=== PATIENT | female | born 1990 | race Caucasian/White ===

== ENCOUNTER 2018-01-21 17:41 | Emergency (ER) | payer OTHER, SELFPAY ==
[2018-01-21 17:43] VITALS: BP 135/94; PULSE 110; RESP 16; TEMP 37; O2SAT 97; BMI 42.3
--- NOTE | 2018-01-21 17:58 | EKG12_ITS ---
Test Reason : CP Blood Pressure : / mmHG Vent. Rate : 095 BPM Atrial Rate : 095 BPM P-R Int : 124 ms QRS Dur : 078 ms QT Int : 350 ms P-R-T Axes : 005 046 027 degrees QTc Int : 439 ms Normal sinus rhythm Low voltage QRS Borderline ECG Confirmed by CATALINO CASILLAS, GIANNI ([id number]), editorial project manager JANIE PURCELL ([id number]) on 01/25/2018 3:18:09 PM Referred By: Confirmed By:GIANNI BAE MD
[2018-01-21 18:21] LABS: Absolute Lymphocyte Count 2.63 X10^3/ul (0.83-4.51); Absolute Neutrophil Count 5.5 X10^3/uL (2.0-7.7); Basophil# 0.02 X10^3/uL; Basophil% 0.2 % (0-1); Eosinophils% 1.2 % (0-5); Hematocrit 39.3 % (37-47); Hemoglobin 13.1 g/dl (12.0-15.0); Lymphocyte # 2.63 X10^3/ul (4.0); Lymphocyte % 30.3 % (19-41); Mean Corp Hgb Conc 33.3 g/gl (32-36); Mean Corpuscular Hgb 30.6 pg (27.0-32.0); Mean Corpuscular Volume 91.8 fL (81-99); Mean Platelet Vol. 8.3 fl (6.2-12.0); Monocyte# 0.43 X10^3/uL; Neutrophil # 5.47 X10^3/uL (2.7-7.7); Neutrophil % 63.1 % (47-70); Platelet Count 294 K/mm3 (150-450); RBC Distribution Width CV 12.6 % (11.6-14.6); RBC Distribution Width SD 41.9 fl (35.1-43.9); Red Blood Count 4.28 M/mm3 (4.2-5.4); White Blood Count 8.7 K/mm3 (4.4-11.0)
[2018-01-21 18:22] LABS: POSITIVE COUNT NO; POSITIVE DIFFERENTIAL NO; POSITIVE MORPHOLOGY NO
--- NOTE | 2018-01-21 18:30 | RAD_ITS ---
STUDY: X-RAY CHEST REASON FOR EXAM: Female, 27 years old. Chest pain TECHNIQUE: Frontal view of the chest COMPARISON: None. FINDINGS: The lungs are clear. There are no pleural effusions. There is no pneumothorax. The heart is normal in size. The visualized osseous structures are within normal limits. RAD/Chest 1 View (Portable) IMPRESSION: No acute thoracic pathology. Electronically Signed: Bean Wang, at 19:04 EDT Tel , Service support ,
[2018-01-21 18:44] LABS: Anion Gap 5 (5-15); BUN 16 mg/dL (7-18); BUN/Creat Ratio 19.1 RATIO (10-20); Calcium,Total 8.8 mg/dL (8.5-10.1); Chloride 104 mmol/L (98-107); Creatinine, Serum 0.84 mg/dL (0.55-1.02); EST Glomerular Filtration Rate 85 mL/min (>60); Est Glom Filt Rate - Afr Amer 103 mL/min (>60); Estimated Creatinine Clearance 81.75 ml/min; Glucose 98 mg/dL (74-106); Potassium 3.7 mmol/L (3.5-5.1); Sodium Level 136 mmol/L (136-145)
[2018-01-21 18:47] VITALS: BP 115/80; PULSE 94; RESP 24; O2SAT 97
--- NOTE | 2018-01-21 19:41 | ED.VISSUMM ---
- ER Visit Summary Date of Service: 01/21/18 Chief Complaint: [] Reflux type symptoms since yesterday History of Present Illness: The patient is a 27 F [] has history of fibromyalgia, she reports yesterday she can having a burning acid leak type sensation to her throat persisted into the day and she came in for evaluation she also reports she has itchy bumps over her's hands and feet, she has no history of [place] PE DVT, she is able to eat and drink review of systems otherwise negative no fever no cough she has no history of angina or heart disease of any kind or COPD her fibromyalgia is well controlled with her medications and she is on no new medicines and had no exposures that the symptoms are not exertional in nature she is able to eat and again her review of systems otherwise negative Physical Examination: [] Resting comforting the bed she is in no distress her vital signs are within normal range HEENT exam unremarkable neck is supple lungs are clear heart tones are normal the abdomen soft nontender obese she is moving all 4 extremities she points to what she describes as small red bumps to her hands and her feet there is no blistering petechia or purpura I really do not appreciate these bumps when she points to them her skin exam is unremarkable her back is unremarkable the rest of her exam is entirely unremarkable Test Results: [] Emergency Department Course and Treatment: [] Patient's labs troponin EKG chest x-ray are unremarkable, I have explained the test results to her of explained exact etiology of her reflux type symptoms or chest pain symptoms are unclear we did discuss the concept of occult cardiac condition I offered to admit her for further management observation but she declined that she wanted to go home she understood the need for close outpatient follow-up in the concept of occult cardiac conditions that could be lethal, her mother and children were in the room with her, she has no history or risk of DVT or PE Regards to small red bumps that are itching I explained to her that there is no clear allergy for the disease could be related to something she came in contact with, again she is comfortable with discharge home follow-up her physicians bland diet return for change in symptoms Treatment Plan: [] Disposition: [] Home stable declined admission Impression: [] Nonspecific chest pain, nonspecific pruritic lesions to extremities etiology unclear This note was generated with [employer] software. It may contain incorrect words, spelling, and punctuation that were not noted in review of the chart prior to signing ED Disposition - Plan for ED Patient: Chief Complaint: Chest Pain Referrals: Caleb Justin MD [Primary Care Provider] -
--- NOTE | 2018-01-21 19:44 | ED.DCSUM_ITS ---
- ER Visit Summary Date of Service: 01/21/18 Chief Complaint: [] Reflux type symptoms since yesterday History of Present Illness: The patient is a 27 F [] has history of fibromyalgia , she reports yesterday she can having a burning acid leak type sensation to her throat persisted into the day and she came in for evaluation she also reports she has itchy bumps over her's hands and feet, she has no history of [place] PE DVT, she is able to eat and drink review of systems otherwise negative no fever no cough she has no history of angina or heart disease of any kind or COPD her fibromyalgia is well controlled with her medications and she is on no new medicines and had no exposures that the symptoms are not exertional in nature she is able to eat and again her review of systems otherwise negative Physical Examination: [] Resting comforting the bed she is in no distress her vital signs are within normal range HEENT exam unremarkable neck is supple lungs are clear heart tones are normal the abdomen soft nontender obese she is moving all 4 extremities she points to what she describes as small red bumps to her hands and her feet there is no blistering petechia or purpura I really do not appreciate these bumps when she points to them her skin exam is unremarkable her back is unremarkable the rest of her exam is entirely unremarkable Test Results: [] Emergency Department Course and Treatment: [] Patient's labs troponin EKG chest x-ray are unremarkable, I have explained the test results to her of explained exact etiology of her reflux type symptoms or chest pain symptoms are unclear we did discuss the concept of occult cardiac condition I offered to admit her for further management observation but she declined that she wanted to go home she understood the need for close outpatient follow-up in the concept of occult cardiac conditions that could be lethal, her mother and children were in the room with her, she has no history or risk of DVT or PE Regards to small red bumps that are itching I explained to her that there is no clear allergy for the disease could be related to something she came in contact with, again she is comfortable with discharge home follow-up her physicians bland diet return for change in symptoms Treatment Plan: [] Disposition: [] Home stable declined admission Impression: [] Nonspecific chest pain, nonspecific pruritic lesions to extremities etiology unclear This note was generated with [employer] software. It may contain incorrect words, spelling, and punctuation that were not noted in review of the chart prior to signing ED Disposition - Plan for ED Patient: Chief Complaint: Chest Pain Referrals: Caleb Justin MD [Primary Care Provider] -
--- NOTE | 2018-01-21 19:44 | ED.DEP ---
ED Disposition - Plan for ED Patient: Chief Complaint: Chest Pain Instructions: ED Chest Pain Atypical Unkn Cause Referrals: Caleb Justin MD [Primary Care Provider] -
[2018-01-21 20:00] VITALS: BP 102/69; PULSE 81; RESP 21; O2SAT 98
== END 2018-01-21 20:01 | disposition home or self-care (01) ==
PROVIDERS: Emergency Provider Emergency Medicine; Family Provider Family Medicine; PCP Family Medicine
DX: R07.9 Chest pain, unspecified (principal); L29.9 Pruritus, unspecified; M79.7 Fibromyalgia; Z79.899 Other long term (current) drug therapy
CPT/HCPCS: 71045; 80048; 84484; 85025; 93005; 99284; A4216

== ENCOUNTER 2018-01-23 09:07 | Emergency (ER) | payer OTHER, SELFPAY ==
[2018-01-23 09:08] VITALS: BP 135/79; PULSE 111; RESP 17; TEMP 36.6; O2SAT 94; BMI 42.1
[2018-01-23] MEDS: Famotidine 20 MG Tablet 40 MG PO (09:40)
[2018-01-23] MEDS: predniSONE 20 MG Tablet 60 MG PO (09:40)
[2018-01-23] MEDS: Loratadine 10 MG Tablet PO (09:40)
--- NOTE | 2018-01-23 10:13 | ED.VISSUMM ---
- ER Visit Summary Date of Service: 01/23/18 Chief Complaint: Rash History of Present Illness: The patient is a [address] Justin. She reports that she has a rash that began 2 days ago on the anterior surface of her right wrist. States that yesterday her lips and tongue began swelling. She has been taking 50-75 mg of Benadryl every 3 hours. Her last dose was approximately an hour and a half ago. States this relieved the tongue swelling in her lips are improved, but lips are still swollen. She reports that this morning the rash spread to her trunk. Patient denies any change in soap, shampoo, laundry detergent, or fabric softener. No new clothing, bedding, carpeting, or pets. No new medications in the past month. Patient reports that she is in the emergency department 3 days ago for chest pain. She reports that it is a constant pain since that time and she does have mild shortness of breath. Physical Examination: Vitals: Stable. Afebrile. General: Well-nourished and well-developed. Head: Normocephalic atraumatic. Neck: Supple, no lymphadenopathy. No JVD. Nontender. Cardiovascular: Regular rate and rhythm. No murmurs. Respiratory: No respiratory distress. Clear to auscultation bilaterally. Abdominal: Soft, nontender, nondistended, normal bowel sounds. No guarding, rebound, or peritoneal signs. Back: Nontender. Extremities: Nontender, no edema. Skin: Urticarial lesions scattered over her distal forearms bilaterally, below her breasts, and over the mid back. Neurologic: Alert and oriented ?3. Cranial nerves II through XII are intact. Normal strength and sensation. Psych: Normal affect. Test Results: EKG is sinus at 99 with no acute changes. Troponin is negative. Chem-7 is normal. CBC from 3 days ago was normal. This was not repeated. D-dimer is 4.54. test is negative. CTA chest shows no dissection or PE. Question small hiatal hernia. Emergency Department Course and Treatment: Patient was treated Pepcid, Claritin, and prednisone p.o. She reports that her lip swelling has improved. Her tongue is still not swollen. Her rash is improved. Treatment Plan: Patient will be discharged on Zyrtec, Pepcid, and a 5 day burst of prednisone. Instructed to follow-up her primary care physician 1-2 days if not improving. Return to the emergency department for any worsening symptoms. Disposition: To home in improved and stable condition. Impression: 1. Allergic reaction, uncertain cause. 2. Atypical chest pain. This note was generated with [employer] dictation software. It may contain incorrect words, spelling, and punctuation that were not noted in review of the chart prior to signing ED Disposition - Plan for ED Patient: Chief Complaint: Allergic Reaction Instructions: ED Allergic Reaction General Other Prescriptions: Cetirizine HCl [Zyrtec] 10 mg PO DAILY #14 tablet Prednisone [Deltasone] 60 mg PO DAILY #15 tablet Famotidine [Pepcid] 20 mg PO BID #28 tablet Referrals: Caleb Justin MD [Primary Care Provider] - 1-2 Days if not improving
--- NOTE | 2018-01-23 10:16 | ED.DCSUM_ITS ---
- ER Visit Summary Date of Service: 01/23/18 Chief Complaint: Rash History of Present Illness: The patient is a [address] Justin. She reports that she has a rash that began 2 days ago on the anterior surface of her right wrist. States that yesterday her lips and tongue began swelling. She has been taking 50-75 mg of Benadryl every 3 hours. Her last dose was approximately an hour and a half ago. States this relieved the tongue swelling in her lips are improved, but lips are still swollen. She reports that this morning the rash spread to her trunk. Patient denies any change in soap, shampoo, laundry detergent, or fabric softener. No new clothing, bedding, carpeting, or pets. No new medications in the past month. Patient reports that she is in the emergency department 3 days ago for chest pain. She reports that it is a constant pain since that time and she does have mild shortness of breath. Physical Examination: Vitals: Stable. Afebrile. General: Well-nourished and well-developed. Head: Normocephalic atraumatic. Neck: Supple, no lymphadenopathy. No JVD. Nontender. Cardiovascular: Regular rate and rhythm. No murmurs. Respiratory: No respiratory distress. Clear to auscultation bilaterally. Abdominal: Soft, nontender, nondistended, normal bowel sounds. No guarding, rebound, or peritoneal signs. Back: Nontender. Extremities: Nontender, no edema. Skin: Urticarial lesions scattered over her distal forearms bilaterally, below her breasts, and over the mid back. Neurologic: Alert and oriented ?3. Cranial nerves II through XII are intact. Normal strength and sensation. Psych: Normal affect. Test Results: EKG is sinus at 99 with no acute changes. Troponin is negative. Chem-7 is normal. CBC from 3 days ago was normal. This was not repeated. D- dimer is 4.54. test is negative. CTA chest shows no dissection or PE. Question small hiatal hernia. Emergency Department Course and Treatment: Patient was treated Pepcid, Claritin , and prednisone p.o. She reports that her lip swelling has improved. Her tongue is still not swollen. Her rash is improved. Treatment Plan: Patient will be discharged on Zyrtec, Pepcid, and a 5 day burst of prednisone. Instructed to follow-up her primary care physician 1-2 days if not improving. Return to the emergency department for any worsening symptoms. Disposition: To home in improved and stable condition. Impression: 1. Allergic reaction, uncertain cause. 2. Atypical chest pain. This note was generated with [employer] dictation software. It may contain incorrect words, spelling, and punctuation that were not noted in review of the chart prior to signing ED Disposition - Plan for ED Patient: Chief Complaint: Allergic Reaction Instructions: ED Allergic Reaction General Other Prescriptions: Cetirizine HCl [Zyrtec] 10 mg PO DAILY #14 tablet Prednisone [Deltasone] 60 mg PO DAILY #15 tablet Famotidine [Pepcid] 20 mg PO BID #28 tablet Referrals: Caleb Justin MD [Primary Care Provider] - 1-2 Days if not improving
[2018-01-23 10:17] LABS: D-Dimer Quantitative (DVT/PE) 4.54 FEU/ug/m (0.27-0.49)
--- NOTE | 2018-01-23 10:18 | NURSING ---
Lab called with critical result: d-dimer: 4.54, results given to Dr. Olmos
--- NOTE | 2018-01-23 10:19 | EKG12_ITS ---
Test Reason : ALLERGOC REACTION Blood Pressure : / mmHG Vent. Rate : 099 BPM Atrial Rate : 099 BPM P-R Int : 134 ms QRS Dur : 078 ms QT Int : 346 ms P-R-T Axes : 001 049 020 degrees QTc Int : 444 ms Normal sinus rhythm Normal ECG Confirmed by CATALINO CASILLAS, GIANNI ([id number]), assistant film editor JANIE PURCELL ([id number]) on 01/25/2018 1:57:40 PM Referred By: ZULEYMA Confirmed By:GIANNI BAE MD
--- NOTE | 2018-01-23 10:19 | CT_ITS ---
STUDY: CTA CHEST REASON FOR EXAM: Female, 27 years old. Elevated d-dimer. Allergic reaction beginning yesterday with rash and swelling of the lips. RADIATION DOSAGE (If Supplied By Facility): CTDIvol = ( 15.21 ) mGy, DLP = ( 646.01 ) mGycm TECHNIQUE: The examination was performed with the intravenous administration of 100 ml of Isovue 370 contrast material. Post-processing of the angiographic images was performed, with multiplanar reformation and 3D reconstruction. Individualized dose optimization techniques were used for this CT. COMPARISON: Chest, January 21, 2018. FINDINGS: Normal enhancement of the main pulmonary artery and right and left pulmonary arteries. Normal enhancement of the bilateral peripheral pulmonary arteries. There is no demonstrated pulmonary embolism. 1 Normal thoracic aorta and visualized great vessels. There is no demonstrated aortic dissection. Normal heart and pericardium. There is minimal soft tissue in the anterior mediastinum thought to be residual thymus. Mediastinum is otherwise unremarkable. Normal hilar regions. Normal visualized trachea and bronchi. The lungs are well expanded. Normal pulmonary parenchyma. Normal pleura. Normal chest wall structures. Normal osseous structures. Question small type I hiatal hernia. The abdomen is otherwise unremarkable. CT/CTA Chest W/WO Contrast IMPRESSION: 1. Normal CTA chest examination, without a demonstrated pulmonary embolism or arterial dissection. 2. Question small hiatal hernia. Electronically Signed: Shalom Parks DO at 11:44 EDT Tel [phone], Service support ,
[2018-01-23] MEDS: 0.9% Normal Saline 1,000 ML 1000 ML IV (10:28)
[2018-01-23 10:41] LABS: Anion Gap 6 (5-15); BUN 14 mg/dL (7-18); BUN/Creat Ratio 13.9 RATIO (10-20); Calcium,Total 9.1 mg/dL (8.5-10.1); Chloride 106 mmol/L (98-107); Creatinine, Serum 1.01 mg/dL (0.55-1.02); EST Glomerular Filtration Rate 69 mL/min (>60); Est Glom Filt Rate - Afr Amer 83 mL/min (>60); Estimated Creatinine Clearance 67.99 ml/min; Glucose 88 mg/dL (74-106); Sodium Level 137 mmol/L (136-145)
[2018-01-23 10:55] LABS: Pregnancy, Serum, hCG Quali. NEGATIVE Negative (0-9 Nonpreg)
[2018-01-23 11:59] VITALS: BP 104/67; PULSE 91; RESP 16; O2SAT 97
== END 2018-01-23 12:00 | disposition home or self-care (01) ==
PROVIDERS: Emergency Provider Emergency Medicine; Family Provider Family Medicine; PCP Family Medicine
DX: T78.40XA Allergy, unspecified, initial encounter (principal); X58.XXXA Exposure to other specified factors, initial encounter; R07.89 Other chest pain; M79.7 Fibromyalgia; Z79.899 Other long term (current) drug therapy; R22.0 Localized swelling, mass and lump, head
CPT/HCPCS: 71275; 80048; 84484; 84703; 85379; 93005; 96360; 96361; 99285; J7030; Q9967; A4216

== ENCOUNTER → 2018-02-24 08:15 | Outpatient (CLI) | payer OTHER, SELFPAY ==
--- NOTE | 2018-02-24 08:30 | RAD_ITS ---
STUDY: X-RAY - ESOPHAGUS (BARIUM SWALLOW) WITH FLUOROSCOPY REASON FOR EXAM: Female, 27 years old. Dysphagia. Heartburn. TECHNIQUE: 17 view(s) of the esophagus were obtained following swallowing of barium. FLUOROSCOPY TIME (if supplied): (0:21) minutes/seconds COMPARISON: None. FINDINGS: There is no demonstrated esophageal foreign body. There is no demonstrated stricture or mucosal abnormality. Normal gastroesophageal junction, without a demonstrated hiatal hernia. The patient ingested a 12 mm tablet of barium without any difficulty. Normal visualized aortic arch and descending thoracic aorta. Normal visualized pulmonary parenchyma. Normal visualized osseous structures of the thorax. RAD/Esophagus Only IMPRESSION: Normal plain film x-ray examination (barium swallow) of the esophagus. Electronically Signed: Bal Cannon MD at 9:21 EDT Tel [phone], Service support ,
== END ==
PROVIDERS: Family Provider Family Medicine; PCP Family Medicine; Visit Provider Surgery
DX: R13.10 Dysphagia, unspecified (principal)
CPT/HCPCS: 74220

== ENCOUNTER 2018-03-28 00:29 | Emergency (ER) | payer OTHER, SELFPAY ==
[2018-03-28 00:29] VITALS: BP 124/89; PULSE 103; RESP 15; TEMP 36.8; BMI 39.4
--- NOTE | 2018-03-28 00:34 | RAD_ITS ---
STUDY: X-RAY - LEFT FOOT CLINICAL: Female, 27 years old. dropped door on foot, swelling, bruising TECHNIQUE: 3 view(s) of the foot. COMPARISON: None. FINDINGS: Normal talus, calcaneus, and tarsal bones. Normal visualized subtalar, talonavicular, calcaneocuboid, tarsal and tarsometatarsal articulations. Normal metatarsi. Normal metatarsophalangeal joint of the great toe. Normal tibial and fibular sesamoid bones. Normal interphalangeal joint of the great toe. Normal phalanges of the great toe. Normal second through fifth metatarsophalangeal joints. Normal interphalangeal joints and phalanges of the lesser toes. The soft tissue structures are unremarkable. RAD/Foot min 3 Views IMPRESSION: Normal x-ray examination of the foot. Electronically Signed: Antony Hewitt MD at 1:47 EDT Tel , Service support ,
--- NOTE | 2018-03-28 02:12 | ED.DCSUM_ITS ---
- ER Visit Summary Date of Service: 03/28/18 Chief Complaint: [Injury left foot] History of Present Illness: The patient is a 27 F [presents the emergency department complaint of injury to her left foot that occurred 3 days ago. Patient states that she dropped a door on her foot. Patient states that she thought it was feeling better but today noticed increased swelling and discoloration and presents for evaluation. Patient has been walking on it.] Physical Examination: [Left foot-patient has some mild soft tissue swelling over the dorsal medial aspect of the foot. Patient has some tenderness palpation over the first metatarsal. Neurovascular intact distally. Normal sensation.] Test Results: [X-rays of the left foot obtained showed no fractures] Emergency Department Course and Treatment: [Patient did not want anything for pain and she did not want crutches.] Treatment Plan: [Patient advised use ibuprofen or Tylenol for discomfort. Patient instructed to elevate extremity.] Disposition: [Discharged home in stable condition. Patient advised to follow- up with primary care physician 5-7 days.] Impression: [Contusion left foot] This note was generated with [employer] dictation software. It may contain incorrect words, spelling, and punctuation that were not noted in review of the chart prior to signing ED Disposition - Plan for ED Patient: Chief Complaint: Lower Extremity Injury Referrals: Caleb Justin MD [Primary Care Provider] -
--- NOTE | 2018-03-28 02:12 | ED.DEP ---
ED Disposition - Plan for ED Patient: Chief Complaint: Lower Extremity Injury Instructions: ED Contusion Foot Referrals: Caleb Justin MD [Primary Care Provider] - 5-7 Days
[2018-03-28 02:38] VITALS: BP 124/89; RESP 15
== END 2018-03-28 02:38 | disposition home or self-care (01) ==
LOC: ED 01:27
PROVIDERS: Emergency Provider Emergency Medicine; Family Provider Family Medicine; PCP Family Medicine
DX: S90.32XA Contusion of left foot, initial encounter (principal); W20.8XXA Other cause of strike by thrown, projected or falling object, initial encounter; Y93.9 Activity, unspecified; Y92.9 Unspecified place or not applicable; Y99.9 Unspecified external cause status; Z79.899 Other long term (current) drug therapy
CPT/HCPCS: 73630; 99282

== ENCOUNTER 2019-01-17 17:35 | Emergency (ER) | payer OTHER, SELFPAY ==
[2019-01-17 17:36] VITALS: BP 144/82; PULSE 112; RESP 16; TEMP 36.4; O2SAT 100; BMI 43.0
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
== END 2019-01-17 18:28 | disposition home or self-care (01) ==
PROVIDERS: Emergency Provider Emergency Medicine; Family Provider Family Medicine; PCP Family Medicine
DX: S00.11XA Contusion of right eyelid and periocular area, initial encounter (principal); W50.0XXA Accidental hit or strike by another person, initial encounter; Y93.89 Activity, other specified; Y92.9 Unspecified place or not applicable; Y99.0 Civilian activity done for income or pay
CPT/HCPCS: 99282

== ENCOUNTER → 2019-06-28 16:52 | Outpatient (CLI) | payer OTHER, SELFPAY ==
[2019-06-28 17:09] LABS: Mucous, Urine 0 SEEN /hpf (<or=2+); Red Blood Cells-Urine 0 SEEN /hpf (0-5); Squamous Epithelial Cells - UA 0 SEEN /hpf (5-10); White Blood Cells 0 SEEN /hpf (0-5)
--- NOTE | 2019-06-28 17:20 | RAD_ITS ---
STUDY: X-RAY - PELVIS REASON FOR EXAM: Female, 28 years old. Psoriatic arthropathy. Hip pain. TECHNIQUE: One view of the pelvis was obtained. COMPARISON: None. FINDINGS: There is a non-specific bowel gas pattern. Normal visualized soft tissue structures. Normal bilateral iliac wings, sacroiliac joints and visualized sacrum. Normal visualized bilateral superior and inferior pubic rami. Normal pubic symphysis. Normal ischial tuberosities. Normal visualized right femoral head. Normal right acetabulum. Normal right hip joint. Normal visualized left femoral head. Normal left acetabulum. Normal left hip joint. No erosions. IUD centrally located in the pelvis. RAD/Pelvis 1 or 2 Views IMPRESSION: Normal x-ray examination of the pelvis. Electronically Signed: Soham Sommer MD at 4:50 EDT , Service support ,
[2019-06-28 17:30] LABS: Basophil# 0.06 X10^3/uL; Basophil% 0.7 % (0-1); Eosinophils% 2.3 % (0-5); Hematocrit 39.9 % (37-47); Hemoglobin 13.5 g/dL (12.0-15.0); Lymphocyte % 33.8 % (19-41); Mean Corp Hgb Conc 33.8 g/dL (32-36); Mean Corpuscular Hgb 30.9 pg (27.0-32.0); Mean Corpuscular Volume 91.3 fL (81-99); Mean Platelet Vol. 8.8 fl (6.2-12.0); Monocyte# 0.41 X10^3/uL; Monocyte% 4.8 % (0-10); NRBC Flagged by Analyzer 0 % (0-5); Neutrophil # 4.97 X10^3/uL (2.7-7.7); Platelet Count 309 K/mm3 (150-450); RBC Distribution Width SD 40.3 fl (35.1-43.9); Red Blood Count 4.37 M/mm3 (4.2-5.4); White Blood Count 8.6 K/mm3 (4.4-11.0)
[2019-06-28 17:35] LABS: Color, Urine Straw (Yellow); Glucose, Dipstick Normal (Normal); Ketone-Dipstick Negative (Negative); Leukocyte Esterase-Dipstick Negative /ul (Negative); Nitrite-Dipstick Negative (Negative); Occult Blood-Urine Negative /ul (Negative); Protein-Dipstick Negative (Negative); Specific Gravity, Urine 1.005 (1.002-1.030); Urine Bilirubin Dipstick Negative (Negative); Urine Clarity Clear (Clear); Urine Urobilinogen Normal (Normal)
[2019-06-28 17:36] LABS: Protein, Urine (Random) < 6.0 mg/dL (<11.9)
[2019-06-28 17:46] LABS: Bacteria RARE /hpf (None Seen)
[2019-06-28 18:10] LABS: ALB/GLOB Ratio 0.8 RATIO (0.9-2.4); AST(SGOT) 12 U/L (15-37); Alanine Aminotransfer ALT/SGPT 18 U/L (13-56); Albumin, Serum 3.5 g/dL (3.2-5.0); Alkaline Phosphatase 133 U/L (45-117); Anion Gap 4 (5-15); BUN 9 mg/dL (7-18); Calcium,Total 9.2 mg/dL (8.5-10.1); Chloride 106 mmol/L (98-107); EST Glomerular Filtration Rate 78 mL/min (>60); Est Glom Filt Rate - Afr Amer 94 mL/min (>60); Globulin 4.3 g/dL (2.2-4.2); Glucose 90 mg/dL (74-106); Protein, Total 7.8 g/dL (6.4-8.2); Sodium Level 138 mmol/L (136-145)
[2019-06-29 09:39] LABS: Hepatitis B Surface Antibody Non-Reactive; Hepatitis B Surface Antigen Non-Reactive (Nonreactive); Hepatitis C Antibody Non-Reactive (Nonreactive)
[2019-07-05 16:00] LABS: HLA B27 Negative (.); Hepatitis B Core AB IgM Negative (Negative)
== END ==
LOC: LAB 16:54
PROVIDERS: Family Provider Family Medicine; PCP Family Medicine; Referring Provider Internal Medicine Rheumatology; Visit Provider Internal Medicine Rheumatology
DX: L40.59 Other psoriatic arthropathy (principal); M79.7 Fibromyalgia; R76.8 Other specified abnormal immunological findings in serum; M21.40 Flat foot [pes planus] (acquired), unspecified foot; R51 Headache
CPT/HCPCS: 36415; 72170; 80053; 81001; 81374; 82570; 84156; 85025; 86705; 86706; 86803; 87340

== ENCOUNTER → 2019-11-01 15:57 | Outpatient (CLI) | payer OTHER, SELFPAY ==
[2019-11-01 17:39] LABS: Absolute Lymphocyte Count 2.74 X10^3/uL (0.83-4.51); Absolute Neutrophil Count 4.5 X10^3/uL (2.0-7.7); Basophil# 0.05 X10^3/uL; Basophil% 0.6 % (0-1); Eosinophil# 0.17 X10^3/uL; Eosinophils% 2.1 % (0-5); Hemoglobin 12.9 g/dL (12.0-15.0); Lymphocyte # 2.74 X10^3/ul (4.0); Lymphocyte % 34.6 % (19-41); Mean Corp Hgb Conc 33.1 g/dL (32-36); Mean Corpuscular Volume 93.8 fL (81-99); Mean Platelet Vol. 8.9 fl (6.2-12.0); Monocyte# 0.42 X10^3/uL; Monocyte% 5.3 % (0-10); NRBC Flagged by Analyzer 0 % (0-5); Neutrophil # 4.53 X10^3/uL (2.7-7.7); Neutrophil % 57.3 % (47-70); Platelet Count 320 K/mm3 (150-450); RBC Distribution Width CV 12.7 % (11.6-14.6); RBC Distribution Width SD 43.5 fl (35.1-43.9); Red Blood Count 4.16 M/mm3 (4.2-5.4); White Blood Count 7.9 K/mm3 (4.4-11.0)
[2019-11-01 18:12] LABS: ALB/GLOB Ratio 0.9 RATIO (0.9-2.4); AST(SGOT) 14 U/L (15-37); Alanine Aminotransfer ALT/SGPT 26 U/L (13-56); Albumin, Serum 3.6 g/dL (3.2-5.0); Alkaline Phosphatase 107 U/L (45-117); Anion Gap 5 (5-15); BUN 15 mg/dL (7-18); BUN/Creat Ratio 15.1 RATIO (10-20); Calcium,Total 9.3 mg/dL (8.5-10.1); Chloride 104 mmol/L (98-107); Creatinine, Serum 0.99 mg/dL (0.55-1.02); EST Glomerular Filtration Rate 69 mL/min (>60); Est Glom Filt Rate - Afr Amer 84 mL/min (>60); Globulin 3.9 g/dL (2.2-4.2); Glucose 87 mg/dL (74-106); Potassium 3.9 mmol/L (3.5-5.1); Protein, Total 7.5 g/dL (6.4-8.2); Sodium Level 136 mmol/L (136-145)
== END ==
LOC: MTLAB 15:59
PROVIDERS: PCP Family Medicine; Referring Provider Internal Medicine Rheumatology; Visit Provider Internal Medicine Rheumatology
DX: L40.59 Other psoriatic arthropathy (principal); L40.8 Other psoriasis; M79.7 Fibromyalgia; M21.40 Flat foot [pes planus] (acquired), unspecified foot; R76.8 Other specified abnormal immunological findings in serum; R51 Headache; Z79.899 Other long term (current) drug therapy
CPT/HCPCS: 36415; 80053; 85025

== ENCOUNTER 2019-11-03 18:01 | Emergency (ER) | payer OTHER, SELFPAY ==
[2019-11-03 18:02] VITALS: BP 154/88; PULSE 101; RESP 16; TEMP 37.1; O2SAT 100; BMI 40.7
[2019-11-03 18:08] VITALS: O2SAT 100
--- NOTE | 2019-11-03 18:31 | EKG12_ITS ---
Test Reason : CP Blood Pressure : / mmHG Vent. Rate : 092 BPM Atrial Rate : 092 BPM P-R Int : 132 ms QRS Dur : 080 ms QT Int : 354 ms P-R-T Axes : 014 039 019 degrees QTc Int : 437 ms Normal sinus rhythm Low voltage QRS Borderline ECG Confirmed by CATALINO CASILLAS, GIANNI ([id number]), food editor ZANDER PONCE ([id number]) on 11/08/2019 8:06:08 AM Referred By: Confirmed By:GIANNI BAE MD
--- NOTE | 2019-11-03 18:31 | CT_ITS ---
STUDY: CTA CHEST REASON FOR EXAM: Female, 29 years old. COLD SYMPTOMS/? PE RADIATION DOSAGE (If Supplied By Facility): CTDIvol = ( 12.62 ) mGy, DLP = ( 474.87 ) mGycm TECHNIQUE: The examination was performed with the intravenous administration of Isovue 370 100ml. Post-processing of the angiographic images was performed, with multiplanar reformation and 3D reconstruction. Individualized dose optimization techniques were used for this CT. COMPARISON: CTA chest January 23, 2018 FINDINGS: Normal enhancement of the main pulmonary artery and right and left pulmonary arteries. Normal enhancement of the bilateral peripheral pulmonary arteries. There is no demonstrated pulmonary embolism. Normal thoracic aorta and visualized great vessels. There is no demonstrated aortic dissection. Normal heart and pericardium. Normal mediastinum. Normal hilar regions. Normal visualized trachea and bronchi. The lungs are well expanded. Normal pulmonary parenchyma. Normal pleura. Normal chest wall structures. Normal osseous structures. Normal visualized upper abdomen. CT/CTA Chest W/WO Contrast IMPRESSION: Normal CTA chest examination, without a demonstrated pulmonary embolism or arterial dissection. Electronically Signed: Jaxon Fry, at 19:24 EST Tel , Service support ,
--- NOTE | 2019-11-03 18:35 | ED.DCSUM_ITS ---
- ER Visit Summary Date of Service: 11/03/19 Chief Complaint: Chest pain, shortness of breath History of Present Illness: The patient is a 29 F presenting with chest pain and shortness of breath. She states this has been ongoing for the past 7 days. She states for the first 3 days it was intermittent and has been constant for the past 4 days. She went to see her primary care physician today and was sent into the ED due to tachycardia with pleuritic chest pain and concern for PE. Patient has a family history of DVT. No other PE/DVT risk factors. Physical Examination: Vitals are stable. Patient is afebrile. Heart rate 101. Alert no acute distress. HEENT exam is unremarkable. Neck is supple. Lungs are clear and equal bilaterally. Heart is regular and tachycardic Abdomen is soft nontender nondistended. Extremities are unremarkable. Skin is warm and dry. No focal neurologic deficit. Remainder of exam is unremarkable. Emergency Department Course and Treatment: Patient was given IV fluids. EKG is sinus rate of 92 with no acute ischemic changes. CBC, chemistries unremarkable. Troponin is negative. hCG negative. CTA chest shows normal CTA chest examination, without a demonstrated pulmonary embolism or arterial dissection. Patient has had chest tightness in the past that has been treated with albuterol. She was ordered a DuoNeb aerosol. Delta troponin is negative. On reevaluation, patient is resting comfortably. Her pulse ox remains 100% on room air. She is given prescription for Naprosyn. She is advised to follow-up with her primary care physician. Advised return to ED for worsening complaints. Disposition: Discharge home Impression: Atypical chest pain This note was generated with [employer] dictation software. It may contain incorrect words, spelling, and punctuation that were not noted in review of the chart prior to signing ED Disposition - Plan for ED Patient: Instructions: CHEST PAIN, Uncertain Cause Prescriptions: Naproxen [Naprosyn] 500 mg PO BID PRN #20 tab Prescription Printed Referrals: Caleb Justin MD [Primary Care Provider] -
[2019-11-03] MEDS: 0.9% Normal Saline 1,000 ML 999 ML IV (18:46)
[2019-11-03 18:55] LABS: Absolute Lymphocyte Count 2.73 X10^3/uL (0.83-4.51); Absolute Neutrophil Count 6.4 X10^3/uL (2.0-7.7); Basophil# 0.06 X10^3/uL; Basophil% 0.6 % (0-1); Eosinophil# 0.16 X10^3/uL; Eosinophils% 1.6 % (0-5); Hematocrit 38.5 % (37-47); Hemoglobin 12.8 g/dL (12.0-15.0); Lymphocyte # 2.73 X10^3/ul (4.0); Lymphocyte % 27.8 % (19-41); Mean Corp Hgb Conc 33.2 g/dL (32-36); Mean Corpuscular Hgb 31.1 pg (27.0-32.0); Mean Corpuscular Volume 93.4 fL (81-99); Mean Platelet Vol. 8.9 fl (6.2-12.0); Monocyte% 5.1 % (0-10); NRBC Flagged by Analyzer 0 % (0-5); Neutrophil # 6.35 X10^3/uL (2.7-7.7); Neutrophil % 64.7 % (47-70); Platelet Count 320 K/mm3 (150-450); RBC Distribution Width CV 12.9 % (11.6-14.6); RBC Distribution Width SD 43.8 fl (35.1-43.9); Red Blood Count 4.12 M/mm3 (4.2-5.4); White Blood Count 9.8 K/mm3 (4.4-11.0)
[2019-11-03 19:03] VITALS: BP 110/70; PULSE 93; RESP 19; TEMP 36.8; O2SAT 100
[2019-11-03 19:06] LABS: BUN 13 mg/dL (7-18); Creatinine, Serum 0.98 mg/dL (0.55-1.02); Glucose 92 mg/dL (74-106)
[2019-11-03 19:07] LABS: Anion Gap 2 (5-15); BUN/Creat Ratio 13.3 RATIO (10-20); Calcium,Total 9.2 mg/dL (8.5-10.1); Chloride 108 mmol/L (98-107); EST Glomerular Filtration Rate 71 mL/min (>60); Est Glom Filt Rate - Afr Amer 86 mL/min (>60); Potassium 3.6 mmol/L (3.5-5.1); Sodium Level 140 mmol/L (136-145)
[2019-11-03 19:10] LABS: Internal QC Validated? YES +Cl - CLEAR BKGD; Pregnancy, Serum, hCG Quali. NEGATIVE Negative
[2019-11-03 20:06] VITALS: BP 116/79; PULSE 88; RESP 21; TEMP 37; O2SAT 100
[2019-11-03] MEDS: Ipratropium/Albuterol Sulfate 3 ML AMPUL.NEB INHALATION (20:59)
[2019-11-03 21:00] VITALS: PULSE 96; RESP 13
--- NOTE | 2019-11-03 22:07 | ED.DEP ---
ED Disposition - Plan for ED Patient: Instructions: CHEST PAIN, Uncertain Cause Prescriptions: Naproxen [Naprosyn] 500 mg PO BID PRN #20 tablet Referrals: Caleb Justin MD [Primary Care Provider] -
[2019-11-03 22:39] VITALS: BP 110/79; PULSE 93; RESP 20; O2SAT 100
== END 2019-11-03 22:40 | disposition home or self-care (01) ==
LOC: ED 18:40
PROVIDERS: Emergency Provider Emergency Medicine; PCP Family Medicine
DX: R07.89 Other chest pain (principal); R06.02 Shortness of breath
CPT/HCPCS: 71275; 80048; 84484; 84703; 85025; 93005; 94640; 96360; 96361; 99283; J7030; Q9967; A4216

== ENCOUNTER → 2020-01-04 11:01 | Outpatient (CLI) | payer OTHER, SELFPAY ==
[2020-01-04 12:25] LABS: Absolute Lymphocyte Count 2.02 X10^3/uL (0.83-4.51); Absolute Neutrophil Count 3.6 X10^3/uL (2.0-7.7); Basophil# 0.05 X10^3/uL; Basophil% 0.8 % (0-1); Eosinophil# 0.07 X10^3/uL; Eosinophils% 1.2 % (0-5); Hematocrit 40.3 % (37-47); Hemoglobin 13.5 g/dL (12.0-15.0); Lymphocyte # 2.02 X10^3/ul (4.0); Lymphocyte % 33.3 % (19-41); Mean Corp Hgb Conc 33.5 g/dL (32-36); Mean Corpuscular Hgb 31.8 pg (27.0-32.0); Mean Platelet Vol. 9.3 fl (6.2-12.0); Monocyte# 0.29 X10^3/uL; Monocyte% 4.8 % (0-10); NRBC Flagged by Analyzer 0 % (0-5); Neutrophil # 3.62 X10^3/uL (2.7-7.7); Neutrophil % 59.7 % (47-70); Platelet Count 326 K/mm3 (150-450); RBC Distribution Width CV 13.3 % (11.6-14.6); RBC Distribution Width SD 45.1 fl (35.1-43.9); Red Blood Count 4.24 M/mm3 (4.2-5.4); White Blood Count 6.1 K/mm3 (4.4-11.0)
[2020-01-04 12:37] LABS: ALB/GLOB Ratio 0.9 RATIO (0.9-2.4); AST(SGOT) 24 U/L (15-37); Alanine Aminotransfer ALT/SGPT 39 U/L (13-56); Albumin, Serum 3.6 g/dL (3.2-5.0); Alkaline Phosphatase 112 U/L (45-117); Anion Gap 4 (5-15); BUN 10 mg/dL (7-18); BUN/Creat Ratio 10.5 RATIO (10-20); Calcium,Total 9.3 mg/dL (8.5-10.1); Chloride 107 mmol/L (98-107); Creatinine, Serum 0.95 mg/dL (0.55-1.02); EST Glomerular Filtration Rate 73 mL/min (>60); Est Glom Filt Rate - Afr Amer 88 mL/min (>60); Globulin 3.9 g/dL (2.2-4.2); Glucose 97 mg/dL (74-106); Potassium 4.1 mmol/L (3.5-5.1); Protein, Total 7.5 g/dL (6.4-8.2); Sodium Level 138 mmol/L (136-145)
[2020-01-05 16:07] LABS: Red Blood Cell Count Test/G6PD 4.38 x10E6/uL (3.77-5.28)
[2020-01-05 16:40] LABS: G6PD Quant Test 305 (146-376)
== END ==
LOC: MTLAB 11:03
PROVIDERS: PCP Family Medicine; Referring Provider Internal Medicine Rheumatology; Visit Provider Internal Medicine Rheumatology
DX: L40.59 Other psoriatic arthropathy (principal); L40.8 Other psoriasis; M79.7 Fibromyalgia; M21.40 Flat foot [pes planus] (acquired), unspecified foot; R76.8 Other specified abnormal immunological findings in serum; R51 Headache; Z79.899 Other long term (current) drug therapy
CPT/HCPCS: 36415; 80053; 82955; 85025

== ENCOUNTER → 2020-02-24 11:49 | Outpatient (CLI) | payer OTHER, SELFPAY ==
[2020-02-24 15:22] LABS: Absolute Lymphocyte Count 2.45 X10^3/uL (0.83-4.51); Absolute Neutrophil Count 5.4 X10^3/uL (2.0-7.7); Basophil# 0.08 X10^3/uL; Basophil% 0.9 % (0-1); Eosinophil# 0.12 X10^3/uL; Eosinophils% 1.4 % (0-5); Hematocrit 40.4 % (37-47); Hemoglobin 12.7 g/dL (12.0-15.0); Lymphocyte # 2.45 X10^3/ul (4.0); Lymphocyte % 28.5 % (19-41); Mean Corp Hgb Conc 31.4 g/dL (32-36); Mean Corpuscular Hgb 30.9 pg (27.0-32.0); Mean Corpuscular Volume 98.3 fL (81-99); Mean Platelet Vol. 8.9 fl (6.2-12.0); Monocyte# 0.55 X10^3/uL; Monocyte% 6.4 % (0-10); NRBC Flagged by Analyzer 0 % (0-5); Neutrophil # 5.38 X10^3/uL (2.7-7.7); Neutrophil % 62.5 % (47-70); Platelet Count 337 K/mm3 (150-450); RBC Distribution Width CV 12.2 % (11.6-14.6); RBC Distribution Width SD 44.4 fl (35.1-43.9); Red Blood Count 4.11 M/mm3 (4.2-5.4); White Blood Count 8.6 K/mm3 (4.4-11.0)
[2020-02-24 15:48] LABS: ALB/GLOB Ratio 0.9 RATIO (0.9-2.4); AST(SGOT) 16 U/L (15-37); Alanine Aminotransfer ALT/SGPT 26 U/L (13-56); Albumin, Serum 3.4 g/dL (3.2-5.0); Alkaline Phosphatase 98 U/L (45-117); Anion Gap 5 (5-15); BUN 11 mg/dL (7-18); BUN/Creat Ratio 12.8 RATIO (10-20); Calcium,Total 8.8 mg/dL (8.5-10.1); Chloride 106 mmol/L (98-107); Creatinine, Serum 0.86 mg/dL (0.55-1.02); EST Glomerular Filtration Rate 82 mL/min (>60); Est Glom Filt Rate - Afr Amer 99 mL/min (>60); Globulin 3.9 g/dL (2.2-4.2); Glucose 96 mg/dL (74-106); Potassium 3.8 mmol/L (3.5-5.1); Protein, Total 7.3 g/dL (6.4-8.2); Sodium Level 138 mmol/L (136-145)
== END ==
LOC: MTLAB 11:51
PROVIDERS: PCP Family Medicine; Referring Provider Internal Medicine Rheumatology; Visit Provider Internal Medicine Rheumatology
DX: L40.59 Other psoriatic arthropathy (principal); L40.8 Other psoriasis; M79.7 Fibromyalgia; M21.40 Flat foot [pes planus] (acquired), unspecified foot; R76.8 Other specified abnormal immunological findings in serum; R51 Headache; Z79.899 Other long term (current) drug therapy
CPT/HCPCS: 36415; 80053; 85025

== ENCOUNTER → 2020-05-04 13:01 | Outpatient (CLI) | payer OTHER, SELFPAY ==
[2020-05-04 15:14] LABS: Absolute Lymphocyte Count 2.18 X10^3/uL (0.83-4.51); Absolute Neutrophil Count 5.2 X10^3/uL (2.0-7.7); Basophil# 0.05 X10^3/uL; Basophil% 0.6 % (0-1); Eosinophil# 0.09 X10^3/uL; Eosinophils% 1.1 % (0-5); Hematocrit 41.9 % (37-47); Hemoglobin 14.1 g/dL (12.0-15.0); Lymphocyte # 2.18 X10^3/ul (4.0); Lymphocyte % 27.2 % (19-41); Mean Corp Hgb Conc 33.7 g/dL (32-36); Mean Platelet Vol. 9.6 fl (6.2-12.0); Monocyte# 0.48 X10^3/uL; NRBC Flagged by Analyzer 0 % (0-5); Neutrophil # 5.19 X10^3/uL (2.7-7.7); Neutrophil % 64.9 % (47-70); Platelet Count 350 K/mm3 (150-450); RBC Distribution Width CV 11.8 % (11.6-14.6); RBC Distribution Width SD 41.2 fl (35.1-43.9); Red Blood Count 4.41 M/mm3 (4.2-5.4)
[2020-05-04 15:54] LABS: AST(SGOT) 15 U/L (15-37); Alanine Aminotransfer ALT/SGPT 21 U/L (13-56); Albumin, Serum 3.8 g/dL (3.2-5.0); Alkaline Phosphatase 98 U/L (45-117); Anion Gap 6 (5-15); BUN 16 mg/dL (7-18); BUN/Creat Ratio 16.2 RATIO (10-20); Calcium,Total 9.1 mg/dL (8.5-10.1); Chloride 106 mmol/L (98-107); Creatinine, Serum 0.99 mg/dL (0.55-1.02); EST Glomerular Filtration Rate 69 mL/min (>60); Est Glom Filt Rate - Afr Amer 84 mL/min (>60); Glucose 84 mg/dL (74-106); Potassium 3.8 mmol/L (3.5-5.1); Protein, Total 7.8 g/dL (6.4-8.2); Sodium Level 137 mmol/L (136-145)
== END ==
LOC: MTLAB 13:02
PROVIDERS: PCP Family Medicine; Referring Provider Internal Medicine Rheumatology; Visit Provider Internal Medicine Rheumatology
DX: L40.59 Other psoriatic arthropathy (principal); L40.8 Other psoriasis; M79.7 Fibromyalgia; R76.8 Other specified abnormal immunological findings in serum; M21.40 Flat foot [pes planus] (acquired), unspecified foot; R51 Headache; Z79.899 Other long term (current) drug therapy
CPT/HCPCS: 36415; 80053; 85025

== ENCOUNTER 2022-05-16 20:30 | Emergency (ER) | payer OTHER, SELFPAY ==
[2022-05-16 20:31] VITALS: BP 133/91; PULSE 111; RESP 16; TEMP 36.4; O2SAT 98; BMI 33.6
--- NOTE | 2022-05-16 21:10 | EDS_ITS ---
HPI HPI - GI History of Present Illness Chief Complaint: Abd Pain Informant: patient and spouse/S.O. Abdominal Pain/Flank Pain Onset: Weeks Context: Sudden Onset Timing: Continuous and Waxes and wanes Quality: Aching Location: Diffuse Current Severity: Mild Maximum Severity: Moderate Worsened by: Nothing Relieved by: Nothing Nausea/Vomiting/Emesis GI Symptom: Positive for Nausea and Vomiting Onset: Days Diarrhea/Melena/Hematochezia GI Symptom: Positive for Diarrhea; Negative for Melena or Hematochezia Onset: Days (6 days) Stool Quality: Positive for Loose, Watery and - (Became black after taking Pepto-Bismol) Severity: Severe Associated Symptoms Associated Symptoms: Positive for - (Decreased urine output); Negative for Dysuria, Frequency, Hematuria or Urgency Narrative Narrative: Patient is a 31-year-old female presents with abdominal pain, nausea, vomiting diarrhea that started approximately 6 days ago. She has significant mount of diarrhea. She states 10-15 loose watery stools per day. She is taken Pepto- Bismol with no improvement other than turning her stool black. She does endorse thirst and dry mouth. She does endorse orthostatic symptoms. She denies fever, chills night sweats. She denies respiratory or symptoms. She denies ill contacts. She does report decreased urine output. Vomiting has been minimal. She denies respiratory symptoms. Prior similar symptoms: No Recent Illness/Hospitalization: No PFSH PFSH Medical History no medical history no medical history (Autoimmune disorder) Home Medications cyclobenzaprine 10 mg tablet 10 mg PO BID 01/17/19 [History Last Taken Unknown] folic acid 1 mg tablet 1 mg PO DAILY 11/03/19 [History Last Taken Unknown] methotrexate sodium 2.5 mg tablet 12.5 mg PO QWEEK 11/03/19 [History Last Taken Unknown] naproxen 500 mg tablet 500 mg PO BID PRN #20 tabs 11/03/19 [Rx Last Taken Unknown] prednisone 10 mg tablet 10 mg PO DAILY PRN Pain/Inflammation 11/03/19 [History Last Taken Unknown] dicyclomine 10 mg capsule 20 mg PO TIDAC #20 CAPSULES 05/16/22 [Rx Last Taken Unknown] ondansetron 4 mg disintegrating tablet 4 mg PO Q8H PRN PRN Nausea #10 tabs 05/16/22 [Rx Last Taken Unknown] Allergy/AdvReac Type Severity Reaction Status Date / Time No Known Allergies Allergy Verified 05/16/22 20:31 Social History (Updated 05/16/22 @ 21:[address] Alfred Goode MD) household members: spouse and children Smoking Status: Never smoker substance use type: does not use ROS ROS ED Constitutional Constitutional ED: Denies chills, fever(s), subjective, sweats or weight loss ENT ENT ED: Denies ear pain, rhinorrhea or sore throat Cardiovascular Cardiovascular: Denies chest pain, orthopnea, palpitations, paroxysmal nocturnal dyspnea or racing heartbeat Respiratory/Chest Respiratory/Chest: Denies cough, dyspnea, dyspnea on exertion, orthopnea or paroxysmal nocturnal dyspnea Gastrointestinal Gastrointestinal: Reports abdominal pain, diarrhea, nausea and vomiting; Denies constipation or melena Genitourinary Genitourinary ED: Reports other Details: Decreased urine output ; Denies dysuria, hematuria or urinary frequency Musculoskeletal Musculoskeletal: Denies arthralgias, back pain, myalgias or neck pain Integumentary Denies rash Neurologic Neurologic: Reports weakness; Denies headache(s) or paresthesias Psychiatric Psychiatric: Denies anxiety or depression Endocrine Endocrinology: Denies polydipsia or polyphagia Hematologic/Lymphatic Hematologic/Lymphatic: Denies easy bleeding or easy bruising EXAM Physical Exam Const Vital Signs: 05/16/22 20:31 Temperature 97.6 F L Temperature Source Temporal Pulse Rate 111 H Respiratory Rate 16 Blood Pressure 133/91 H Blood Pressure Mean 105 Pulse Ox 98 Oxygen Delivery Method Room Air Positive well nourished, well developed and obese General Appearance ED: well developed and NAD; Negative for pallor Nutritional Appearance: obese HEENT Reports TM's clear and dry mucous membranes HEENT Narrative: Ears normal. Nares patent. Uvula midline. normocephalic and atraumatic Tympanic Membrane ED: Yes TM's clear Mouth ED: Yes dry mucous membranes Mouth: dry mucous membranes Eyes PERRL and EOMs intact bilaterally Neck no lymphadenopathy, supple and no JVD Resp normal respiratory effort and clear to auscultation bilaterally Cardio regular rhythm, S1 normal heart sound, S2 normal heart sound and no murmurs Rate: tachycardic GI no masses; Negative for non-tender or non-distended Inspection: abdominal distention Auscultation: hypoactive bowel sounds Palpation: soft and tender LUQ and suprapubic Back/Spine no CVA tenderness Cervical Spine: Negative for cervical spine tenderness Thoracic Spine / Upper Back: Negative for thoracic spinal tenderness Lumbar Spine / Lower Back: Negative for lumbar spinal tenderness Extremity full ROM General Extremety ED: Negative for edema or tenderness General Extremity: Negative for edema Neuro CN's II-XII intact bilaterally, moves all extremities and no sensory deficits noted Sensorium / Orientation: alert Motor Exam: strength 5/5 throughout Psych mental status grossly normal and thought process normal Skin no wounds General Skin Exam: Negative for jaundice or pallor Lesions: no lesions Rashes: no rashes MDM MDM MDM Narrative Medical decision making narrative: This may represent autoimmune disorder i.e. Crohn's also colitis. There is no family history. This also may represent a viral gastroenteritis/enteritis. CBC was obtained to assess white count differential and rule out anemia. Basic metabolic panels assess CO2/anion gap renal function and specifically hypokalemia. Patient was treated with IV fluids, Imodium, dicyclomine and Zofran for the diarrhea, abdominal discomfort and nausea. Fluids was administered since clinically she is dehydrated and gives orthostatic symptoms. Patient was reassessed at 2225. She no longer has nausea or vomiting. She is had 2 loose stools since arrival. She does feel better. Plan is to discharge to home with prescription for Zofran, Bentyl and Imodium. If she continues to have diarrhea she will need referral to GI. Lab Data Attestation: I reviewed the patient's lab results. Lab results narrative: CBC is unremarkable. Basic metabolic panel is unremarkable. Urine is unremarkable. Labs: Laboratory Results - last 24 hr 05/16/22 05/16/22 05/16/22 21:10 21:12 21:12 WBC 6.0 RBC 4.63 Hgb 14.4 Hct 42.9 MCV 92.7 MCH 31.1 MCHC 33.6 RDW Std Deviation 39.9 RDW Coeff of Felipe 11.7 Plt Count 269 MPV 8.9 Immature Gran % (Auto) 0.300 Neut % (Auto) 77.4 H Lymph % (Auto) 15.9 L [place] % (Auto) 5.6 Eos % (Auto) 0.3 Baso % (Auto) 0.5 Absolute Neuts (auto) 4.7 Absolute Lymphs (auto) 0.96 Nucleated RBC % 0 Sodium 137 Potassium 3.9 Chloride 109 H Carbon Dioxide 22.0 Anion Gap 6 BUN 13 Creatinine 0.90 Estim Creat Clear Calc 73.55 Est GFR (MDRD) Af Amer 92 Est GFR (MDRD) Non-Af 76 BUN/Creatinine Ratio 14.4 Glucose 112 H Calcium 8.7 Urine Color Yellow Urine Clarity Clear Urine pH 6.0 Ur Specific [place] 1.005 Urine Protein Negative Urine Glucose (UA) Normal Urine Ketones Negative Urine Occult Blood 10 H Urine Nitrite Negative Urine Bilirubin Negative Urine Urobilinogen Normal Ur Leukocyte Esterase Negative Discharge Plan Triage Chief Complaint: Abd Pain ED Provider: Alfred Goode Dx/Rx/DC Orders Clinical Impression: Abdominal pain, vomiting, and diarrhea, Dehydration, mild Instructions: ED Diarrhea, Unknown Cause Prescriptions: New ondansetron [ondansetron] 4 mg tablet,disintegrating 4 mg PO Q8H PRN PRN (Reason: Nausea) Qty: 10 0RF dicyclomine 10 mg capsule 20 mg PO TIDAC Qty: 20 0RF No Action cyclobenzaprine 10 MG tablet 10 mg PO BID prednisone 10 tablet 10 mg PO DAILY PRN (Reason: Pain/Inflammation) methotrexate sodium 2.5 tablet 12.5 mg PO QWEEK Rx Instructions: FRIDAYS folic acid 1 tablet 1 mg PO DAILY naproxen 500 MG tablet 500 mg PO BID PRN Qty: 20 0RF Primary Care Provider: Caleb Justin Referrals: Caleb Justin MD [Primary Care Provider] - 3-5 Days if not improving Activity Restrictions/Additional Instructions: AmmoniaTake Imodium with each loose stool as instructed on can be purchased without a prescription. Disposition Disposition: Home, Self Care
[2022-05-16] MEDS: Loperamide 2 MG Capsule 4 MG PO (21:27)
[2022-05-16] MEDS: 0.9% Normal Saline 1,000 ML 1000 ML IV (21:27)
[2022-05-16] MEDS: Ondansetron 4 MG/2 ML Vial IV (21:27)
[2022-05-16] MEDS: Dicyclomine 10 MG Capsule 20 MG PO (21:27)
[2022-05-16 21:28] LABS: Absolute Lymphocyte Count 0.96 X10^3/uL (0.83-4.51); Absolute Neutrophil Count 4.7 X10^3/uL (2.0-7.7); Basophil# 0.03 X10^3/uL; Basophil% 0.5 % (0-1); Eosinophil# 0.02 X10^3/uL; Eosinophils% 0.3 % (0-5); Hematocrit 42.9 % (37-47); Hemoglobin 14.4 g/dL (12.0-15.0); Lymphocyte # 0.96 X10^3/ul (0.83-4.51); Lymphocyte % 15.9 % (19-41); Mean Corp Hgb Conc 33.6 g/dL (32-36); Mean Corpuscular Hgb 31.1 pg (27.0-32.0); Mean Corpuscular Volume 92.7 fL (81-99); Mean Platelet Vol. 8.9 fl (6.2-12.0); Monocyte# 0.34 X10^3/uL; Monocyte% 5.6 % (0-10); NRBC Flagged by Analyzer 0 % (0-5); Neutrophil # 4.67 X10^3/uL (2.7-7.7); Neutrophil % 77.4 % (47-70); Platelet Count 269 K/mm3 (150-450); RBC Distribution Width CV 11.7 % (11.6-14.6); RBC Distribution Width SD 39.9 fl (35.1-43.9); Red Blood Count 4.63 M/mm3 (4.2-5.4)
[2022-05-16 21:30] LABS: Color, Urine Yellow (Yellow); Glucose, Dipstick Normal (Normal); Ketone-Dipstick Negative (Negative); Leukocyte Esterase-Dipstick Negative /ul (Negative); Nitrite-Dipstick Negative (Negative); Occult Blood-Urine 10 /ul (Negative); Protein-Dipstick Negative (Negative); Specific Gravity, Urine 1.005 (1.002-1.030); Urine Bilirubin Dipstick Negative (Negative); Urine Clarity Clear (Clear); Urine Urobilinogen Normal (Normal)
[2022-05-16 21:46] LABS: Anion Gap 6 (5-15); BUN 13 mg/dL (7-18); BUN/Creat Ratio 14.4 RATIO (10-20); Calcium,Total 8.7 mg/dL (8.5-10.1); Chloride 109 mmol/L (98-107); EST Glomerular Filtration Rate 76 mL/min (>60); Est Glom Filt Rate - Afr Amer 92 mL/min (>60); Estimated Creatinine Clearance 73.55 ml/min; Glucose 112 mg/dL (74-106); Potassium 3.9 mmol/L (3.5-5.1); Sodium Level 137 mmol/L (136-145)
[2022-05-16 22:47] VITALS: BP 126/78; PULSE 78; RESP 14; TEMP 37.2; O2SAT 99
== END 2022-05-16 22:47 | disposition home or self-care (01) ==
PROVIDERS: Emergency Provider Emergency Medicine; PCP Family Medicine; Visit Provider Emergency Medicine
DX: R10.32 Left lower quadrant pain (principal); R11.2 Nausea with vomiting, unspecified; R19.7 Diarrhea, unspecified; E86.0 Dehydration; E66.9 Obesity, unspecified; Z68.33 Body mass index [BMI] 33.0-33.9, adult
CPT/HCPCS: 80048; 81002; 85025; 96361; 96374; 99284; J7030; A4216; J2405

== ENCOUNTER 2025-07-09 15:27 | Emergency (ER) | payer OTHER, SELFPAY ==
[2025-07-09 15:27] VITALS: BP 131/89; PULSE 90; RESP 18; TEMP 36.3; O2SAT 98; BMI 35.4
[2025-07-09 16:09] LABS: Internal QC Validated? YES +Cl - CLEAR BKGD
[2025-07-09 16:10] LABS: Pregnancy, Serum, hCG Quali. NEGATIVE Negative; Record Kit Lot#, Serum Preg. 980607
[2025-07-09 16:20] LABS: Hematocrit 39.8 % (37-47); Hemoglobin 14.2 g/dL (12.0-15.0); Immature Granulocytes Count 0.030 X10^3/uL (0.0-0.0); Mean Corp Hgb Conc 35.7 g/dL (32-36); Mean Corpuscular Volume 87.9 fL (81-99); Mean Platelet Vol. 9.2 fl (6.2-12.0); NRBC Flagged by Analyzer 0 % (0-5); Platelet Count 355 K/mm3 (150-450); RBC Distribution Width CV 12.4 % (11.6-14.6); RBC Distribution Width SD 39.6 fl (35.1-43.9); Red Blood Count 4.53 M/mm3 (4.2-5.4); White Blood Count 8.4 K/mm3 (4.4-11.0)
[2025-07-09 16:39] LABS: AST(SGOT) 19 U/L (<=31); Alanine Aminotransfer ALT/SGPT 21 U/L (<=34); Albumin, Serum 4.1 g/dL (3.5-5.0); Alkaline Phosphatase 123 U/L (35-104); Anion Gap 12 (5-15); BUN 11 mg/dL (4-19); BUN/Creat Ratio 12.2 RATIO (10-20); Calcium,Total 9.4 mg/dL (7.6-11.0); Carbon Dioxide 22.9 mmol/L (21.0-32.0); Chloride 102 mmol/L (98-108); Estimated Creatinine Clearance 94.59 ml/min (50-250); Globulin 3.2 g/dL (2.2-4.2); Glucose 104 mg/dL (70-99); Potassium 3.9 mmol/L (3.3-5.1)
[2025-07-09 16:57] VITALS: BP 123/72; PULSE 76; RESP 18; TEMP 36.7; O2SAT 100
[2025-07-09 17:00] LABS: Mucous, Urine 0 SEEN /hpf (<or=2+); Red Blood Cells-Urine 0 SEEN /hpf (0-5)
[2025-07-09 17:04] LABS: Color, Urine Straw (Yellow); Glucose, Dipstick Normal (Normal); Ketone-Dipstick Negative (Negative); Leukocyte Esterase-Dipstick Negative /ul (Negative); Nitrite-Dipstick Negative (Negative); Occult Blood-Urine Negative /ul (Negative); Protein-Dipstick 15 mg/dl (Negative); Specific Gravity, Urine 1.015 (1.002-1.030); Urine Bilirubin Dipstick Negative (Negative)
--- NOTE | 2025-07-09 17:13 | CT_ITS ---
PROCEDURE: ABDOMEN/PELVIS WITHOUT CONT 07/09/2025 REASON FOR EXAM: R FLANK PAIN TECHNIQUE: Procedure Code: CTABDPEL Modality: CT Procedure: ABDOMEN/PELVIS WITHOUT CONT Noncontrast technique limits evaluation of the abdominal and pelvic viscera. Coronal and Sagittal reconstruction series were provided. One or more dose reduction techniques were used (e.g., Automated exposure control, adjustment of the mA and/or kV according to patient size, use of iterative reconstruction technique). FINDINGS: Noncontrast appearance of the liver and spleen are unremarkable. No contour deformity of the pancreas. No renal calculus or hydronephrosis. Normal caliber abdominal aorta. There is no free-fluid. There is no free air. There is no bowel wall thickening or bowel obstruction. There is no abdominal aortic aneurysm. No lumbar compression deformity or subluxation. Lung bases are clear. CT/Abdomen/Pelvis without Cont IMPRESSION: No acute abnormality Reading [facility]
--- NOTE | 2025-07-09 17:15 | ED.VIS.FEGU ---
HPI HPI - Female History of Present Illness Chief Complaint: Flank Pain Narrative Narrative: Chief complaint and HPI: 34-year-old female with history of MS on methotrexate presents for evaluation of right flank pain. Associated symptom is nausea and dysuria which she describes as a lightening bolt sensation when she urinates. No history of urolithiasis. She denies any fever, chills, shortness of breath, chest pain, vomiting, diarrhea, vaginal complaints. Patient went to urgent care and was referred to the emergency department. Review of systems: See HPI Medications: As listed on the chart Allergies: As listed on the chart PFSH: Per chart Vital signs: As listed on the chart. Reviewed. Physical exam: Gen: A&O x3, NAD Head: Normocephalic, atraumatic Eyes: No sclera icterus, conjunctiva clear ENT: Moist mucous membranes CV: RRR, no murmurs Resp: Lungs CTA BL, no w/r/c GI: Abd soft, non-distended, mild tenderness to palpation right flank, no r/r/g : No CVA tenderness Musc: Full ROM, no deformity Skin: Warm, dry Neuro: Alert, oriented, grossly intact, sensation intact Psych: Cooperative, appropriate mood and affect [facility] Medical History (Updated 07/09/25 @ 17:16 by Gisele Owens) Multiple sclerosis Home Medications ?Medication ?Instructions ?Recorded ?Last Taken ?Type cyclobenzaprine 10 mg tablet 10 mg PO BID 01/17/19 Unknown History folic acid 1 mg tablet 1 mg PO DAILY 11/03/19 Unknown History methotrexate sodium 2.5 mg tablet 12.5 mg PO QWEEK 11/03/19 Unknown History naproxen 500 mg tablet 500 mg PO BID PRN #20 tabs 11/03/19 Unknown Rx prednisone 10 mg tablet 10 mg PO DAILY PRN 11/03/19 Unknown History Pain/Inflammation dicyclomine 10 mg capsule 20 mg (2 x 10 mg) PO TIDAC #20 05/16/22 Unknown Rx CAPSULES ondansetron 4 mg disintegrating 4 mg PO Q8H PRN PRN Nausea #10 tabs 05/16/22 Unknown Rx tablet Allergy/AdvReac Type Severity Reaction Status Date / Time No Known Allergies Allergy Verified 07/09/25 15:27 Social History (Updated 05/16/22 @ 21:[address] Alfred Goode MD) household members: spouse and children Smoking Status: Never smoker substance use type: does not use EXAM Physical Exam Const Vital Signs: 07/09/25 15:27 07/09/25 16:57 07/09/25 18:42 Temperature 97.4 F L 98.0 F Temperature Source Temporal Oral Pulse Rate 90 76 72 Respiratory Rate 18 18 16 Blood Pressure 131/89 H 123/72 H 123/83 H Blood Pressure Mean 103 89 96 Pulse Ox 98 100 100 Oxygen Delivery Method Room Air Room Air Room Air MDM MDM MDM Narrative Medical decision making narrative: 34-year-old female with history of MS on methotrexate presents for evaluation of right flank pain. Associated symptom is nausea and dysuria which she describes as a lightening bolt sensation when she urinates. No history of urolithiasis. Differential diagnosis includes but is not limited to urolithiasis, UTI, myofascial spasm, gastroenteritis, pyelonephritis. NS bolus, Zofran, Toradol ordered for symptoms. Laboratory workup ordered including CT abdomen pelvis without contrast. CBC without leukocytosis or anemia. CMP relatively unremarkable without YEFRI or transaminitis. Serum negative. UA negative for UTI or blood.CT abdomen pelvis shows no acute intra-abdominal process. At this point in time, no clear etiology to explain patient's right flank pain. May be myofascial spasm. Follow-up with primary care physician. Motrin Tylenol as needed for pain. She vermin understand the plan. Patient will discharge home. Impression: 1. Right flank pain Lab Data Labs: Laboratory Results - last 24 hr 07/09/25 07/09/25 15:35 16:55 WBC 8.4 RBC 4.53 Hgb 14.2 Hct 39.8 MCV 87.9 MCH 31.3 MCHC 35.7 RDW Std Deviation 39.6 RDW Coeff of Felipe 12.4 Plt Count 355 MPV 9.2 Immature Gran % (Auto) 0.400 Neut % (Auto) 62.9 Lymph % (Auto) 27.0 [place] % (Auto) 7.5 Eos % (Auto) 1.5 Baso % (Auto) 0.7 Absolute Neuts (auto) 5.3 Absolute Lymphs (auto) 2.28 Nucleated RBC % 0 Sodium 137 Potassium 3.9 Chloride 102 Carbon Dioxide 22.9 Anion Gap 12 BUN 11 Creatinine 0.88 Estim Creat Clear Calc 94.59 Est GFR (MDRD) Non-Af 88 BUN/Creatinine Ratio 12.2 Glucose 104 H Calcium 9.4 Total Bilirubin 0.28 AST 19 ALT 21 Alkaline Phosphatase 123 H Total Protein 7.3 Albumin 4.1 Globulin 3.2 Albumin/Globulin Ratio 1.3 Serum , Qual NEGATIVE Urine Color Straw Urine Clarity Sl. Cloudy Urine pH 6.5 Ur Specific [place] 1.015 Urine Protein 15 H Urine Glucose (UA) Normal Urine Ketones Negative Urine Occult Blood Negative Urine Nitrite Negative Urine Bilirubin Negative Urine Urobilinogen Normal Ur Leukocyte Esterase Negative Urine RBC 0 SEEN Urine WBC 0-5 SEEN Ur Squamous Epith Cells 0-5 SEEN Urine Bacteria 0 SEEN Urine Mucus 0 SEEN Radiography Diagnostic Testing: Clinical Impression(s) from Imaging Studies Abdomen/Pelvis CT 07/09/25 17:13 IMPRESSION: No acute abnormality Reading Location: [facility] Discharge Plan Triage Chief Complaint: Flank Pain ED Provider: Orlando Skinner Dx/Rx/DC Orders Prescriptions: No Action cyclobenzaprine 10 MG tablet 10 mg PO BID prednisone 10 tablet 10 mg PO DAILY PRN (Reason: Pain/Inflammation) methotrexate sodium 2.5 tablet 12.5 mg PO QWEEK Rx Instructions: FRIDAYS folic acid 1 tablet 1 mg PO DAILY naproxen 500 MG tablet 500 mg PO BID PRN Qty: 20 0RF ondansetron [ondansetron] 4 mg tablet,disintegrating 4 mg PO Q8H PRN PRN (Reason: Nausea) Qty: 10 0RF dicyclomine 10 mg capsule 20 mg PO TIDAC Qty: 20 0RF Primary Care Provider: Caleb Justin Referrals: Caleb Justin MD [Primary Care Provider, Family Practice] Print Language: Italian
[2025-07-09] MEDS: 0.9% Normal Saline (1000mL) 1,000 ML 999 ML IV (17:21)
--- OUTSIDE RECORDS SUMMARY | 2025-07-09 17:29 | XMS RPT_ITS | CCD ---
Author Organization [facility] Care Team Providers Care Emergency Department Director Name Role Phone Annie Justin MD Primary Care Provider DEION MEYER Attending Unavailable FRANCESCA SEN Referring Unavailable PROVIDER, UNKNOWN Primary Care Unavailable Annie Justin MD Primary Care Provider [place] MEDICAL HISTORIAN.Chiara TAYLOR Unavailable Sacha MEDICAL HISTORIAN.DIRECTOR DIVERSITYLenny Unavailable [place] MEDICAL HISTORIAN.BRANDON Chiara Unavailable PATRICIA, ARLYN Referring Unavailable ELDERTEODORA ANNIE Jimi Primary Care Unavailable ANNIE JUSTIN Primary Care Unavailable KEVIN LIZET Referring Unavailable ANNIE JUSTIN Primary Care Unavailable KEVIN, LIZET Referring Unavailable PATRICIA, ARLYN Referring Unavailable STACEY ANNIE Jimi Primary Care Unavailable KULDIP BROWNARY Attending Unavailable ANNIE JUSTIN Primary Care Unavailable ANNIE JUSTIN Primary Care Unavailable JORDAN BAJWA Referring Unavailable ANNIE JUSTIN Primary Care Unavailable CHIARA PEDERSEN Attending Unavailabl e ELDERBROCK, ANNIE Jimi Primary Care Unavailable CHIARA PEDERSEN Attending Unavailabl e ELDERBROCK ANNIE D Primary Care Unavailable ANGELA QUINTANILLA Attending Unavaila ble ANNIE JUSTIN Primary Care Unavailable LENA DEGROOT Referring Unavailable ELDERBROCK, ANNIE Jimi Primary Care Unavailable ANGELA QUINTANILLA Attending Unavaila ble ELDERTEODORA, ANNIE Jimi Primary Care Unavailable SHAHRAM BROOKS Attending Unavailabl e KEVIN, LIZET Referring Unavailable PATRICIA, ARLYN Referring Unavailable ELDERTEODORA ANNIE Jimi Primary Care Unavailable PATRICIA, ARLYN Referring Unavailable ELDERGIANANNIE NUNEZ Primary Care Unavailable LIZET BROWN Attending Unavailable ANNIE JUSTIN Primary Care Unavailable ANGELA QUINTANILLA Attending Unavaila LIZET Alexander Referring Unavailable ANNIE JUSTIN Primary Care Unavailable LENA DEGROOT Attending Unavailable LIZET BROWN Referring Unavailable ANNIE JUSTIN Primary Care Unavailable Medications Current Medications Medication Drug Class(es) Dates Sig (Normalized) Sig (Original) [id number] 200 actuat albuterol 0.09 mg/actuat metered dose inhaler (20 sources) beta2-Adrenergic Agonist Start: 08-15-2021 End: 05-17-2024 take 2 puff(s) by inhalation every four hours as needed for wheezing albuterol HFA (PROVENTIL HFA, VENTOLIN HFA) 90 mcg/actuation inhaler Inhale 2 Puffs as instructed every 4 hours as needed for wheezing/shortnes s of breath. 6.7 g 09/17/2023 Active Start: 05-17-2019 End: 08-15-2021 take 2 puff(s) by inhalation every four hours as needed for wheezing albuterol HFA (VENTOLIN HFA) 90 mcg/actuation inhaler Indications: Sinobronchitis Inhale 2 Puffs as instructed every 4 hours as needed for Wheezing/Shortness of Breath. 1 Inhaler 3 05/17/2019 08/15/2021 Discontinued Comment on above: Inhale 2 Puffs as in structed every 4 hours as needed for wheezing/shortness of breath. amantadine hydrochloride 100 mg oral capsule (20 sources) Influenza A M2 Protein Inhibitor Start: 023 End: take 1 capsule by mouth twice daily amantadine HCl (SYMMETREL) 100 mg capsule Take 1 capsule by mouth twice daily 60 capsule 5 01/31/2025 Active Comment on above: Take 1 capsule by mo ut two times a day. Take 1 capsule by mo ut twice daily amoxicillin 875 mg / clavulanate 125 mg oral tablet (3 sources) Penicillin-class Antibacterial Start: 025 End: take 1 tablet by mouth every twelve hours amoxicillin-clavula mitra potassium (AUGMENTIN) 875-125 mg per tablet Indications: Bacterial sinusitis Take 1 tablet by mouth every 12 hours for 7 days. 14 tablet 11/14/2024 11/14/2024 Discontinued Start: 11-14-2024 End: 11-24-2024 take 1 tablet by mouth twice daily amoxicillin-clavulanate potassium (AUGMENTIN) 875-125 mg per tablet Indications: Bacterial sinusitis Take 1 tablet by mouth two times a day for 10 days. 20 tablet 11/14/2024 11/24/2024 Active Start: 09-17-2023 End: 09-22-2023 take 1 tablet by mouth twice daily amoxicillin-clavulanate potassium (AUGMENTIN) 875-125 mg per tablet Take 1 tablet by mouth two times a day for 5 days. 10 tablet 0 09/17/2023 09/22/2023 Active Comment on above: Take 1 tablet by davey th two times a day for 5 days. 24 hr amphetamine aspartate 7.5 mg / amphetamine sulfate 7.5 mg / dextroamphetamine saccharate 7.5 mg / dextroamphetamine sulfate 7.5 mg extended release oral capsule (20 sources) Central Nervous System Stimulant Start: 03-13-2025 End: 06-11-2025 amphetamine-dextroa mphetamine XR (ADDERALL XR) 30 mg capsule Indications: Adult ADHD Take 1 capsule by mouth once daily for 30 days. Patient should start on May 12, 2025. 30 capsule 05/12/2025 Active Start: 10-30-2023 End: 03-02-2025 take 1 capsule by mouth once daily amphetamine-dextroamphetamine XR (ADDERA LL XR) 30 mg capsule Indications: Adult ADHD Take 1 capsule by mouth once daily for 30 days. Patient should start on January 31, 2025. 30 capsule 01/31/2025 03/02/2025 Active Start: 10-30-2023 End: 12-02-2024 take 1 tablet by mouth once daily dextroamphetamine-amphetamine (ADDERALL) 10 mg tablet Indications: Adult ADHD Take 1 tablet by mouth once daily for 30 days. 30 tablet 10/30/2023 12/02/2024 Discontinued Start: 06-15-2023 End: 07-15-2023 take 1 capsule by mouth once daily amphetamine-dextroamphetamine XR (ADDERA LL XR) 20 mg capsule Indications: Adult ADHD Take 1 capsule by mouth once daily for 30 days. 30 capsule 0 06/15/2023 Active Start: 04-13-2023 End: 05-13-2023 take 1 capsule by mouth once daily amphetamine-dextroamphetamine XR (ADDERA LL XR) 20 mg biphasic capsule Indications: Adult ADHD Take 1 capsule by mouth once daily for 30 days. 30 capsule 0 04/13/2023 Active Start: 02-09-2023 End: 03-11-2023 take 1 capsule by mouth once daily amphetamine-dextroamphetamine XR (ADDERA LL XR) 20 mg 24 hr capsule Indications: Adult ADHD Take 1 capsule by mouth once daily for 30 days. 30 capsule 0 02/09/2023 Active Start: 09-15-2022 End: 10-15-2022 take 1 tablet by mouth once daily dextroamphetamine-amphetamine (ADDERALL) 5 mg tablet Indications: Adult ADHD Take 1 tablet by mouth once daily for 30 days. 30 tablet 0 09/15/2022 Active Start: 08-15-2022 End: 01-17-2023 take 1 capsule by mouth once daily amphetamine-dextroamphetamine XR (ADDERA LL XR) 20 mg 24 hr capsule Indications: Adult ADHD Take 1 capsule by mouth once daily for 30 days. 30 capsule 0 12/18/2022 01/17/2023 Active Start: 07-10-2022 End: 08-09-2022 take 1 capsule by mouth once daily amphetamine-dextroamphetamine XR (ADDERA LL XR) 20 mg 24 hr capsule Indications: Adult ADHD Take 1 capsule by mouth once daily for 30 days. 30 capsule 0 07/10/2022 Active Start: 05-26-2022 End: 06-25-2022 take 1 capsule by mouth once daily amphetamine-dextroamphetamine XR (ADDERA LL XR) 20 mg 24 hr capsule Indications: Adult ADHD Take 1 capsule by mouth once daily for 30 days. 30 capsule 0 05/26/2022 06/25/2022 Active Start: 03-17-2022 End: 05-17-2022 take 1 capsule by mouth once daily amphetamine-dextroamphetamine XR (ADDERA LL XR) 20 mg 24 hr capsule Indications: Adult ADHD Take 1 capsule by mouth once daily for 30 days. 30 capsule 0 04/17/2022 Active Start: 02-10-2022 End: 03-15-2022 take 1 capsule by mouth once daily amphetamine-dextroamphetamine XR (ADDERA LL XR) 20 mg 24 hr capsule Indications: Adult ADHD Take 1 capsule by mouth once daily for 30 days. 30 capsule 02/10/2022 03/15/2022 Discontinued Start: 05-05-2021 End: 02-05-2022 take 1 capsule by mouth once daily amphetamine-dextroamphetamine XR (ADDERA LL XR) 20 mg 24 hr capsule Indications: Adult ADHD Take 1 capsule by mouth once daily for 30 days. 30 capsule 10/24/2021 12/05/2021 Discontinued Start: 12-24-2020 End: 12-28-2020 take 1 capsule by mouth once daily amphetamine-dextroamphetamine XR (ADDERA LL XR) 5 mg 24 hr capsule Indications: Adult ADHD Take 1 capsule by mouth once daily for 30 days. 30 capsule 12/24/2020 12/28/2020 Discontinued (Other) Comment on above: Take 1 capsule by mo ut once daily for 30 days. Take 1 capsule by mo [facility] once daily for 30 days. Do not start before October 15, 2022. Take 1 capsule by [facility] once daily for 30 days. Do not start before November 14, 2022. Take 1 tablet by [facility] once daily for 30 days. Take 1 capsule by mo [facility] once daily for 30 days. Do not start before January 07, 2024. Take 1 capsule by [facility] once daily for 30 days. Do not start before February 06, 2024. azithromycin 250 mg oral tablet (2 sources) Macrolide Antimicrobial Start: 06-22-20 End: 06-27-20 azithromycin (ZITHROMAX Z-MAXIMILIAN) 250 mg tablet Indications: Bronchitis Take 2 tablets day one, then, 1 tablet daily until gone. 6 tablet 06/22/2024 06/27/2024 Active baclofen 10 mg oral tablet (20 sources) gamma-Aminobutyric Acid-ergic Agonist Start: 12-22-19 End: 10-11-19 take 1 tablet by mouth in the evening, then take 3 tablets by mouth at bedtime baclofen 10 mg tablet Indications: Muscle spasm of back Take 1 tablet by mouth in the evening and 3 tablet at bedtime 120 tablet 11 10/11/2024 Active Start: 05-29-2022 End: 12-20-2023 take 1 tablet by mouth in the evening baclofen 10 mg tablet Indications: Muscle spasm of back Take 1 tablet by mouth in the evening and 1 tablet at bedtime 60 tablet 5 04/02/2023 12/20/2023 Discontinued Comment on above: Take 1 tablet by davey th daily at bedtime. TAKE 1 TABLET BY DAVEY TH ONCE DAILY AT BEDTIME Take 1 tablet by davey th in the evening and 1 tablet at bedtime cholecalciferol 0.125 mg oral capsule (20 sources) Vitamin D Start: 4 End: 5 take 1 capsule by mouth once daily Cholecalciferol, Vitamin D3, 125 mcg (5,000 unit) cap Indications: vitamin D deficiency Take 1 capsule by mouth once daily. 90 capsule 1 05/09/2025 Active Start: 09-08-2022 take 1 capsule by mo uth once daily Cholecalciferol, Vitamin D3, 125 mcg (5,000 unit) cap Indications: vitamin D deficiency Take 1 capsule by mouth once daily. 90 capsule 3 09/08/2022 Active Start: 02-03-2022 End: 08-11-2022 take 1 capsule by mouth every week cholecalciferol, Vitamin D3, (VITAMIN D3) 1,250 mcg (50,000 unit) cap capsule Indications: Vitamin D deficiency Take 1 capsule by mouth one time a week for 12 doses. 12 capsule 1 02/03/2022 08/11/2022 Discontinued Comment on above: Take 1 capsule by mo uth one time a week for 12 doses. Take 1 capsule by mo uth once daily. diclofenac sodium 75 mg delayed release oral tablet (12 sources) Nonsteroidal Anti-inflammatory Drug Start: 04-10-20 End: 07-09-20 take 1 tablet by mouth every twelve hours as needed diclofenac, EC, (VOLTAREN) 75 mg EC tablet Take 1 tablet by mouth twice daily as needed (for headache.). Not to be taken more than three days per week. 15 tablet 1 04/10/2022 07/09/2022 Active Comment on above: Take 1 tablet by davey th twice daily as needed (for headache.). Not to be taken more than three days per week. dicyclomine hydrochloride 10 mg oral capsule (1 source) Anticholinergic Start: 05-16-20 take 20 mg by mouth three times daily before mealtime Dicyclomine Active 20 MG PO THREE TIMES DAILY BEFORE MEALS May 16, 2022 12:00am folic acid 1 mg oral tablet (1 source) Start: 11-03-19 take 1 mg by mouth once daily Folic Acid Active 1 MG PO DAILY November 03, 2019 1:00am gabapentin 300 mg oral capsule (20 sources) Anti-epileptic Agent Start: 06-01-20 End: 05-18-20 25 take 2 capsules by mouth three times daily as needed for pain gabapentin (NEURONTIN) 300 mg capsule Indications: Multiple sclerosis (HCC) TAKE 2 CAPSULES BY MOUTH THREE TIMES DAILY. MAY TAKE ADDITIONAL CAP NEEDED FOR PAIN 210 capsule 5 04/18/2025 Active Start: 07-03-2023 End: 12-30-2023 take 2 capsules by mouth three times daily as needed gabapentin (NEURONTIN) 300 mg capsule Indications: Multiple sclerosis (HCC) Take 2 capsules by mouth three times a day for 180 days. May take additional 300 mg as needed PRN pain 210 capsule 5 07/03/2023 Active Start: 12-25-2022 End: 09-29-2023 take 1 capsule by mouth four times daily gabapentin (NEURONTIN) 300 mg capsule Indications: Multiple sclerosis (HCC) Take 1 capsule by mouth four times daily for 180 days. 60 capsule 5 04/02/2023 09/29/2023 Active Start: 09-04-2022 End: 06-18-2023 take 1 capsule by mouth at dinner, then take 1 capsule by mouth at bedtime gabapentin (NEURONTIN) 300 mg capsule Indications: Multiple sclerosis (HCC) Take 1 capsule by mouth around dinner (6:00). Then take additional dose around bedtime 60 capsule 5 12/25/2022 04/02/2023 Discontinued Comment on above: Take 1 capsule by mo uth daily at bedtime for 180 days. Take 1 capsule by mo uth around dinner (6:00). Then take additional dose around bedtime Take 1 capsule by mo uth four times daily for 180 days. Take 2 capsules by m outh three times a day for 180 days. May take additional 300 mg as needed PRN pain hydroquinone 40 mg/ml topical cream (8 sources) Melanin Synthesis Inhibitor Start: 5 End: 5 hydroquinone (ELDOQUIN FORTE) 4 % cream Indications: Melasma Use on dark spots every night for up to 3 months, take a 1 month break, then repeat cycle as needed 28.36 g 3 05/09/2025 Active ibuprofen 800 mg oral tablet (4 sources) Nonsteroidal Anti-inflammatory Drug Start: 2 End: take 1 tablet by mouth every eight hours as needed for pain ibuprofen (MOTRIN) 800 mg tablet Indications: Migraine headaches Take 1 tablet by mouth every 8 hours as needed for pain. Take with food. 90 tablet 3 01/29/2022 02/28/2022 Active Start: 08-13-2021 End: 12-03-2021 ibuprofen (MOTRIN) 600 mg ta blet Indications: Pain of left thumb , Scalp pain Take 1 tablet by mouth every 8 hours as needed for pain. Routine X 1 week, then every 8 hours as needed for pain. 60 tablet 08/13/2021 12/03/2021 Discontinued Comment on above: Take 1 tablet by advey th every 8 hours as needed for pain. Take with food. methotrexate 2.5 mg oral tablet (1 source) Folate Analog Metabolic Inhibitor Start: take 12.5 mg by mouth every week Methotrexate Sodium Active 12.5 MG PO EVERY WEEK November 03, 2019 1:00am FRIDAYS naproxen 500 mg oral tablet (1 source) Nonsteroidal Anti-inflammatory Drug Start: take 500 mg by mouth twice daily as needed Naproxen Active 500 MG PO TWICE DAILY NEEDED November 03, 2019 1:00am nitrofurantoin, macrocrystals 25 mg / nitrofurantoin, monohydrate 75 mg oral capsule (4 sources) Nitrofuran Antibacterial Start: End: take 1 capsule by mouth twice daily at mealtime nitrofurantoin monohydrate and macrocrystal (MACROBID) 100 mg capsule Indications: Acute cystitis with hematuria Take 1 capsule by mouth two times a day with meals for 7 days. 14 capsule 06/12/2024 06/19/2024 Active nystatin 268144 unt/ml topical cream (5 sources) Polyene Antifungal Start: End: nystatin (MYCOSTATIN) cream Indications: Vaginal itching Apply to affected area two times a day for 14 days. 30 g 10/02/2024 10/16/2024 Active ocrelizumab (OCREVUS INTRAVENOUS) (20 sources) ocrelizumab (OCR EVUS INTRAVENOUS) Inject intravenously once every 6 months. Active ocrelizumab (OCR EVUS INTRAVENOUS) Inject intravenously once every 6 months. 0 Active Comment on above: Inject intravenously once every 6 months. ondansetron 4 mg disintegrating oral tablet (1 source) Serotonin-3 Receptor Antagonist Start: 05-16-20 take 4 mg by mouth every eight hours as needed Ondansetron Active 4 MG PO EVERY 8 HOURS NEEDED May 16, 2022 12:00am predniSONE 10 mg oral tablet (3 sources) Start: 03-31-20 End: 04-12-20 predniSONE (DELTASONE) 10 mg tablet Indications: Dermatitis Take 4 tabs daily x 3 days, then 3 tabs x 3 days, 2 tabs x 3 days, then 1 tab x3 days with food. 30 tablet 0 03/31/2022 04/12/2022 Active Start: 11-03-2019 take 10 mg by mouth once daily Prednisone Active 10 MG PO DAILY November 03, 2019 1:00am Comment on above: Take 4 tabs daily x 3 days, then 3 tabs x 3 days, 2 tabs x 3 days, then 1 tab x3 days with food. rizatriptan 5 mg disintegrating oral tablet (12 sources) Serotonin-1b and Serotonin-1d Receptor Agonist Start: 04-10-20 End: 07-09-20 take 1 tablet by mouth every two hours as needed for headache rizatriptan (MAXALT-MANAGED [employer] SALES CONSULTANT) 5 mg disintegrating tablet Take 1 tablet by mouth as needed (at onset of headache. May repeat after 2 hours.). Do not exceed 30 mg per day. 12 tablet 2 04/10/2022 07/09/2022 Active Comment on above: Take 1 tablet by davey th as needed (at onset of headache. May repeat after 2 hours.). Do not exceed 30 mg per day. SUMAtriptan 100 mg oral tablet (20 sources) Serotonin-1b and Serotonin-1d Receptor Agonist Start: 05-12-20 take 1 tablet by mouth every two hours as needed for headache SUMAtriptan (IMITREX) 100 mg tablet Take 1 tablet (100 mg) by mouth as needed for migraine headache (see administration instructions). START AT ONSET OF HEADACHE. MAY REPEAT DOSE AFTER 2 HOURS. 9 tablet 4 05/12/2024 Active Start: 01-29-2022 End: 04-10-2022 take 1 tablet by mouth every twenty-four hours as needed for headache SUMAtriptan (IMITREX) 50 mg tablet Indications: Migraine headaches Take 1 tablet by mouth as needed for migraine headache (see administration instructions). Take 1 tablet by mouth for migraine headache. May repeat dose in 2 hours. Max is 200 mg in 24 hours. 6 tablet 3 01/29/2022 04/10/2022 Discontinued (Side Effects) Comment on above: Take 1 tablet by davey as needed for migraine headache (see administration instructions). Take 1 tablet by mouth for migraine headache. May repeat dose in 2 hours. Max is 200 mg in 24 hours. tretinoin 0.25 mg/ml topical cream (8 sources) Retinoid Start: 04-17-2025 End: 05-08-2025 tretinoin (RETIN-A) 0.025 % topical cream Indications: Melasma Apply a tiny (pea-sized) amount to the entire face three times weekly x for 1 week, then every other night for 1-2 weeks, then increase to nightly as tolerated 45 g 3 05/09/2025 Active triamcinolone acetonide 1 mg/ml topical cream (2 sources) Corticosteroid Start: 03-31-2022 End: 04-14-2022 triamcinolone acetonide (KENALOG) 0.1 % cream Indications: Dermatitis Apply 1 application to affected area three times daily for 14 days. Apply sparingly to area for rash/itching. 45 g 1 03/31/2022 04/14/2022 Active Comment on above: Apply 1 application to affected area three times daily for 14 days. Apply sparingly to area for rash/itching. ubrogepant 50 mg oral tablet (12 sources) Start: 12-02-2024 End: 05-31-2025 ubrogepant (UBRELVY) 50 mg tablet Indications: Intractable migraine without aura and without status migrainosus Take 1 tablet by mouth as needed (Migraine Headache). 16 tablet 5 12/02/2024 05/31/2025 Active Completed/Discontinued Medications Medication Drug Class(es) Dates Sig (Normalized) Sig (Original) acetaminophen 500 mg oral tablet (3 sources) Start: 04-06-2025 End: 04-06-2025 take 1 dose by mouth once, then take 4000 mg by mouth once daily 1,000 mg, ORAL, ONCE, 1 dose, On Ale 04/06/25 at 0800, No more than 4000 mg of acetaminophen should be given per day (FROM ALL SOURCES) Start: 10-06-2024 End: 10-06-2024 take 1 dose by mouth once, then take 4000 mg by mouth once daily 1,000 mg, ORAL, ONCE, 1 dose, On Ale 10/06/24 at 0800, No more than 4000 mg of acetaminophen should be given per day (FROM ALL SOURCES) Start: 04-01-2024 End: 04-01-2024 acetaminophen 1,000 mg tab(s ) (TYLENOL) atropine sulfate 0.025 mg / diphenoxylate hydrochloride 2.5 mg oral tablet (6 sources) Anticholinergic, Cholinergic Muscarinic Antagonist, Antidiarrheal Start: 05-20-2022 End: 08-11-2022 take 1 tablet by mouth every six hours as needed for diarrhea and diarrhea diphenoxylate-atropine (LOMOTIL) 2.5-0.025 mg per tablet Indications: Diarrhea, unspecified type Take 1 tablet by mouth four times daily as needed for diarrhea for up to 2 days. 6 tablet 1 05/20/2022 08/11/2022 Discontinued Comment on above: Take 1 tablet by [facility] four times daily as needed for diarrhea for up to 2 days. cyclobenzaprine hydrochloride 10 mg oral tablet (20 sources) Muscle Relaxant Start: 01-17-2019 End: 05-29-2022 take 0.5-1 tablets by mouth twice daily as needed cyclobenzaprine (FLEXERIL) 10 mg tablet Indications: Fatigue, unspecified type , Myalgia TAKE ONE-HALF TO ONE TABLET BY MOUTH TWICE DAILY NEEDED 60 tablet 5 12/17/2020 08/15/2021 Discontinued Comment on above: TAKE ONE-HALF TO ONE TABLET BY MOUTH TWICE DAILY NEEDED TAKE 1/2 TO 1 (ONE-H PIPER TO ONE) TABLET BY MOUTH TWICE DAILY NEEDED diphenhydrAMINE hydrochloride 25 mg oral capsule (3 sources) Histamine-1 Receptor Antagonist Start: 04-06-2025 End: 04-06-2025 take 1 dose by mouth once 50 mg, ORAL, ONCE, 1 dose, On Ale 04/06/25 at 0800 Start: 10-06-2024 End: 10-06-2024 take 1 dose by mouth once 50 mg, ORAL, ONCE, 1 dose, O n Ale 10/06/24 at 0800 Start: 04-01-2024 End: 04-01-2024 diphenhydrAMINE 50 mg capsul e (BENADRYL) doxycycline hyclate 100 mg oral tablet (7 sources) Tetracycline-class Drug Start: 06-16-2024 End: 06-23-2024 take 1 tablet by mouth twice daily doxycycline (VIBRA-TABS) 100 mg tablet Indications: Rhinosinusitis Take 1 tablet by mouth two times a day for 7 days. 14 tablet 06/16/2024 06/23/2024 DULoxetine 60 mg delayed release oral capsule (20 sources) Serotonin and Norepinephrine Reuptake Inhibitor Start: 02-05-2024 End: 12-02-2024 take 1 capsule by mouth once daily DULoxetine (CYMBALTA) 60 mg capsule Indications: Multiple sclerosis (HCC) Take 1 capsule by mouth once daily 90 capsule 3 02/05/2024 12/02/2024 Discontinued Start: 12-18-2022 End: 08-16-2023 take 1 capsule by mouth once daily DULoxetine (CYMBALTA) 60 mg capsule Indications: Multiple sclerosis (HCC) Take 1 capsule by mouth once daily 90 capsule 1 05/18/2023 Active Start: 09-04-2022 End: 09-23-2022 take 1 capsule by mouth once daily DULoxetine (CYMBALTA) 30 mg capsule Indications: Multiple sclerosis (HCC) Take 1 capsule by mouth once daily for 7 days. 7 capsule 0 09/04/2022 09/23/2022 Discontinued Start: 09-04-2022 End: 12-03-2022 take 1 capsule by mouth once daily DULoxetine (CYMBALTA) 60 mg capsule Indications: Multiple sclerosis (HCC) Take 1 capsule by mouth once daily. 90 capsule 0 09/04/2022 Active Comment on above: Take 1 capsule by mo uth once daily. Take 1 capsule by mo uth once daily for 7 days. Take 1 capsule by mo uth once daily ergocalciferol 1.25 mg oral capsule (20 sources) Provitamin D2 Compound Start: 2021 End: 2023 take 1 capsule by mouth every week ergocalciferol 50,000 unit capsule (VITAMIN D2, DRISDOL) Indications: Vitamin D deficiency Take 1 capsule by mouth one time a week. 12 capsule 0 09/08/2022 05/12/2024 Discontinued Comment on above: Take 1 capsule by [facility] one time a week. escitalopram 20 mg oral tablet (3 sources) Serotonin Reuptake Inhibitor Start: 2020 End: 2021 take 1 tablet by mouth once daily escitalopram oxalate (LEXAPRO) 20 mg tablet Indications: SHABNAM (generalized anxiety disorder) Take 1 tablet by mouth once daily. 30 tablet 3 12/26/2020 12/03/2021 Discontinued iv contrast (will be provided with radiology test) (1 source) Start: 2021 End: 2021 iv contrast (will be provided with radiology test) MRI CSP Inject, intravenously, once for 1 dose. No IV access, insert saline lock prior to the beginning of sedation, infusion, injection of imaging exam. Discontinue saline lock post exam. If Pt. has a central line or IVAD, may access for administration according to line specific nursing protocol. Once exam is complete flush line and de-access according to line specific nursing protocol in the MR contrast administration guidelines link. 1 Each 0 05/29/2022 05/29/2022 Discontinued Comment on above: MRI CSP Inject, intr avenously, once for 1 dose. No IV access, insert saline lock prior to the beginning of sedation, infusion, injection of imaging exam. Discontinue saline lock post exam. If Pt. has a central line or IVAD, may access for administration according to line specific nursing protocol. Once exam is complete flush line and de-access according to line specific nursing protocol in the MR contrast administration guidelines link. levonorgestrel 0.259174 mg/hr intrauterine system (1 source) Progestin, Progestin-containing Intrauterine Device Start: 2010 End: 2020 levonorgestrel (MIRENA) 20 mcg/24 hr (5 years) IUD 1 Each by INTRAUTERINE route continuous. 06/05/2011 01/10/2021 Discontinued meloxicam 15 mg oral tablet (1 source) Nonsteroidal Anti-inflammatory Drug Start: 2020 End: 2020 take 1 tablet by mouth once daily at mealtime meloxicam (MOBIC) 15 mg tablet Indications: Jaw pain Take 1 tablet by mouth once daily. With food. 30 tablet 12/26/2020 01/10/2021 Discontinued (Other) methylPREDNISolone 125 mg injection (3 sources) Corticosteroid Start: 2024 End: 2024 100 mg, INTRAVENOUS, ONCE, 1 dose, On Ale 04/06/25 at 0800 Start: 10-06-2024 End: 10-06-2024 100 mg, INTRAVENOUS, ONCE, 1 dose, On Ale 10/06/24 at 0800 Start: 04-01-2024 End: 04-01-2024 methylPREDNISolone sod succi mitra(PF) 100 mg injection (SOLU-Medrol) miconazole nitrate 40 mg/ml vaginal cream (3 sources) Azole Antifungal Start: 10-03-2024 End: 10-06-2024 Miconazole Nitrate (MONISTAT 3) 200 mg/5 gram (4 %) crea Use 1 Applicator vaginally once daily for 3 days. 25 g 10/03/2024 10/06/2024 10 ml ocrelizumab 30 mg/ml injection (3 sources) Start: 04-06-2025 End: 04-06-2025 600 mg, INTRAVENOUS, ONCE, 1 dose, On Ale 04/06/25 at 0800, Subsequent infusion. Start infusion at 100 mL/hour for 15 minutes, then increase to 200 mL/hour for 15 minutes, then increase to 250 mL/hour for 30 minutes, then increase to 300 mL/hour for remainder of infusion. Maximum rate = 300mL/hour. APPROXIMATE TOTAL VOLUME: 560 mL For 300 mg doses, administer one 300 mg/250 mL bag. For 600 mg doses, administer two 300 mg/250 mL bags. Administer with 0.2 micron filter. Refrigerate. Start: 10-06-2024 End: 10-06-2024 600 mg, INTRAVENOUS, ONCE, 1 dose, On Ale 10/06/24 at 0800, Subsequent infusion. Start infusion at 100 mL/hour for 15 minutes, then increase to 200 mL/hour for 15 minutes, then increase to 250 mL/hour for 30 minutes, then increase to 300 mL/hour for remainder of infusion. Maximum rate = 300mL/hour. APPROXIMATE TOTAL VOLUME: 560 mL For 300 mg doses, administer one 300 mg/250 mL bag. For 600 mg doses, administer two 300 mg/250 mL bags. Administer with 0.2 micron filter. Refrigerate. Start: 04-01-2024 End: 04-01-2024 ocrelizumab (OCREVUS) in NaC l 0.9% Vial-Mate 600 mg 500 mL topiramate 50 mg oral tablet (20 sources) Start: 10-30-2023 End: 12-02-2024 take 1 tablet by mouth once daily at bedtime topiramate (TOPAMAX) 50 mg tablet TAKE 1 & 1/2 (ONE & ONE-HALF) TABLETS BY MOUTH ONCE DAILY AT BEDTIME 45 tablet 5 03/09/2024 12/02/2024 Discontinued Start: 04-14-2023 End: 09-08-2023 take 1 tablet by mouth once daily at bedtime topiramate (TOPAMAX) 50 mg tablet TAKE 1 & 1/2 (ONE & ONE-HALF) TABLETS BY MOUTH ONCE DAILY AT BEDTIME 45 tablet 0 09/08/2023 Active Start: 12-16-2022 End: 04-12-2023 take 1 tablet by mouth once daily at bedtime topiramate (TOPAMAX) 50 mg tablet TAKE 1 & 1/2 (ONE & ONE-HALF) TABLETS BY MOUTH ONCE DAILY AT BEDTIME 45 tablet 3 04/14/2023 Active Start: 05-29-2022 End: 12-16-2022 take 1.5 tablets by mouth once daily at bedtime topiramate (TOPAMAX) 50 mg tablet Take 1.5 tablets by mouth daily at bedtime. 45 tablet 2 08/13/2022 12/16/2022 Discontinued Start: 05-23-2022 End: 09-23-2022 take 1 tablet by mouth once daily at bedtime topiramate (TOPAMAX) 50 mg tablet TAKE 1 TABLET BY MOUTH ONCE DAILY AT BEDTIME 30 tablet 0 08/13/2022 09/23/2022 Discontinued Start: 04-10-2022 End: 07-09-2022 take 1 tablet by mouth once daily at bedtime topiramate (TOPAMAX) 25 mg tablet Take 1 tablet by mouth daily at bedtime. 30 tablet 2 04/10/2022 05/23/2022 Discontinued Comment on above: Take 1 tablet by davey th daily at bedtime. Take 1.5 tablets by mouth daily at bedtime. TAKE 1 TABLET BY DAVEY TH ONCE DAILY AT BEDTIME TAKE 1 & 1/2 (ONE & ONE-HALF) TABLETS BY MOUTH ONCE DAILY AT BEDTIME Problems Active Problems Problem Classification Problem Date Documented Da te Episodic/Chronic Abdominal pain (3 sources) Abdominal pain; Translations: [Unspecified abdominal pain] Episodic Adjustment disorders (1 source) Adjustment disorder with mixed anxiety and depressed mood; Translations: [Adjustment disorder with mixed anxiety and depressed mood] Onset: 5 Chronic Administrative/social admission (1 source) Other reduced mobility; Translations: [Other specified conditions influencing health status] 04-19-2024 Episodic Allergic reactions (1 source) Inflammatory dermatosis; Translations: [Dermatitis, unspecified] Episodic Attention-deficit, conduct, and disruptive behavior disorders (20 sources) Adult attention deficit hyperactivity disorder ; Translations: [Attention-deficit hyperactivity disorder, unspecified type] Onset: 1 Chronic Attention-deficit, conduct, and disruptive behavior disorders (2 sources) Attention-deficit hyperactivity disorder, unspecified type; Translations: [Adult ADHD] Onset: 1 Chronic Chronic obstructive pulmonary disease and bronchiectasis (1 source) Bronchitis; Translations: [Bronchitis, not specified as acute or chronic] 06-22-2024 Episodic Disorders of teeth and jaw (1 source) Jaw pain; Translations: [Jaw pain] 12-26-2020 Episodic Fluid and electrolyte disorders (1 source) Mild dehydration; Translations: [Dehydration] Episodic Genitourinary symptoms and ill-defined conditions (4 sources) Urinary symptoms ; Translations: [Unspecified symptoms and signs involving the genitourinary system] Episodic Headache; including migraine (7 sources) Migraine without aura, not refractory ; Translations: [Migraine without aura, not intractable, without status migrainosus] Onset: 5 Chronic Headache; including migraine (5 sources) Headache; Translations: [Chronic nonintractable headache, unspecified headache type] Episodic Immunizations and screening for infectious disease (2 sources) Anti-nuclear factor positive; Translations: [Other specified abnormal immunological findings in serum] Episodic Malaise and fatigue (5 sources) Fatigue; Translations: [Other fatigue] Onset: 5 Episodic Miscellaneous mental health disorders (1 source) Psychophysiologic insomnia; Translations: [Psychophysiological insomnia] Onset: 5 Chronic Multiple sclerosis (20 sources) Multiple sclerosis; Translations: [Multiple sclerosis] Onset: 2 Chronic Nutritional deficiencies (8 sources) Vitamin D deficiency; Translations: [Vitamin D deficiency, unspecified] Onset: 5 Chronic Other connective tissue disease (1 source) Muscle pain; Translations: [Myalgia, unspecified site] Episodic Other connective tissue disease (1 source) Neuropathic pain; Translations: [Neuralgia and neuritis, unspecified] 11-17-2023 Episodic Other connective tissue disease (1 source) Pain in left thumb; Translations: [Pain in left finger(s)] 08-13-2021 Episodic Other eye disorders (1 source) Afferent pupillary defect; Translations: [Pupillary abnormality, right eye] Episodic Other female genital disorders (1 source) Pruritus of vagina; Translations: [Other specified noninflammatory disorders of vagina] 10-02-2024 Episodic Other gastrointestinal disorders (1 source) Diarrhea; Translations: [Diarrhea, unspecified] Episodic Other gastrointestinal disorders (1 source) Chronic constipation; Translations: [Other constipation] 05-19-2024 Episodic Other hereditary and degenerative nervous system conditions (1 source) Restless legs syndrome; Translations: [RLS (restless legs syndrome)] Onset: 5 Chronic Other liver diseases (8 sources) Alkaline phosphatase raised; Translations: [Abnormal levels of other serum enzymes] 05-17-2024 Episodic Other lower respiratory disease (3 sources) Cough; Translations: [Acute cough] 09-17-2023 Episodic Other lower respiratory disease (2 sources) Cough; Translations: [Acute cough] 10-17-2024 Episodic Other lower respiratory disease (1 source) Snoring; Translations: [Snoring] Onset: 5 Episodic Other nervous system disorders (3 sources) Demyelinating disease of central nervous system; Translations: [Demyelinating disease of central nervous system, unspecified] Chronic Other nervous system disorders (2 sources) Tingling of skin; Translations: [Paresthesia of skin] Episodic Other nervous system disorders (2 sources) Magnetic resonance imaging of brain abnormal; Translations: [White matter disease, unspecified] Episodic Other nervous system disorders (1 source) Abnormal sensation; Translations: [Other disturbances of skin sensation] Episodic Other nervous system disorders (1 source) Paresthesia of lower extremity; Translations: [Paresthesia of skin] 05-19-2024 Episodic Other nervous system disorders (1 source) Numbness of lower limb ; Translations: [Anesthesia of skin] 07-21-2024 Episodic Other nervous system disorders (1 source) Paresthesia; Translations: [Paresthesia of skin] 10-11-2024 Episodic Other non-traumatic joint disorders (2 sources) Pain in right knee; Translations: [Pain in joint, lower leg] Episodic Other skin disorders (1 source) Eruption; Translations: [Rash and other nonspecific skin eruption] 03-31-2024 Episodic Other skin disorders (2 sources) Loss of hair; Translations: [Nonscarring hair loss, unspecified] 04-06-2025 Episodic Other skin disorders (2 sources) Chloasma; Translations: [Chloasma] 04-17-2025 Episodic Other skin disorders (1 source) Chloasma; Translations: [Melasma] Onset: Episodic Other skin disorders (1 source) Nonscarring hair loss, unspecified; Translations: [Hair thinning] Onset: 5 Episodic Other upper respiratory infections (3 sources) Chronic sinusitis; Translations: [Chronic sinusitis, unspecified] 09-17-2023 Chronic Other upper respiratory infections (5 sources) Sore throat symptom; Translations: [Acute pharyngitis, unspecified] Episodic Residual codes; unclassified (5 sources) Memory impairment; Translations: [Other amnesia] Episodic Residual codes; unclassified (3 sources) Insomnia; Translations: [Insomnia, unspecified] 04-06-2025 Episodic Residual codes; unclassified (1 source) Other specified personal risk factors, not elsewhere classified; Translations: [At risk for obstructive sleep apnea] Onset: 5 Episodic Residual codes; unclassified (1 source) Insomnia, unspecified; Translations: [Insomnia, unspecified type] Onset: 5 Episodic Spondylosis; intervertebral disc disorders; other back problems (7 sources) Spasm of back muscles; Translations: [Muscle spasm of back] Episodic Superficial injury; contusion (1 source) Contusion of knee; Translations: [Contusion of left knee, initial encounter] Episodic Unclassified (1 source) Headaches; Translations: [Headaches] Onset: 4 Unclassified (1 source) Acute cough; Translations: [Acute cough] Onset: 5 Urinary tract infections (1 source) Acute cystitis; Translations: [Acute cystitis with hematuria] 06-12-2024 Episodic Past or Other Problems Problem Classification Problem Date Documented Date Episodic/Chronic Anxiety disorders (20 sources) Generalized anxiety disorder; Translations: [Generalized anxiety disorder] Onset: 11-29-2020 Resolved: 05-12-2024 11-29-2020 Chronic Anxiety disorders (2 sources) Feeling irritable; Translations: [Irritability and anger] Onset: 12-02-2024 12-02-2024 Episodic Biliary tract disease (20 sources) Gallstone; Translations: [Calculus of gallbladder without cholecystitis without obstruction] Onset: 10-08-2009 Resolved: 03-28-2011 03-28-2011 Episodic Menstrual disorders (20 sources) Dysmenorrhea; Translations: [Dysmenorrhea, unspecified] Onset: 11-04-2006 Resolved: 04-15-2011 04-15-2011 Chronic Other liver diseases (1 source) Abnormal levels of other serum enzymes; Translations: [Elevated alkaline phosphatase level] Onset: 12-02-2024 Episodic Other non-traumatic joint disorders (20 sources) Shoulder joint pain; Translations: [Pain in unspecified shoulder] Onset: 08-12-2012 Resolved: 05-12-2024 08-12-2012 Episodic Other nutritional; endocrine; and metabolic disorders (20 sources) Body mass index 40+ - severely obese; Translations: [Morbid (severe) obesity due to excess calories] Onset: 01-19-2018 Resolved: 05-12-2024 01-19-2018 Chronic Other and delivery including normal (20 sources) Normal in primigravida; Translations: [Encounter for supervision of normal first , unspecified trimester] Onset: 08-21-2009 Resolved: 03-28-2011 03-28-2011 Episodic Other screening for suspected conditions (not mental disorders or infectious disease) (8 sources) Radiologically isolated syndrome; Translations: [Abnormal findings on diagnostic imaging of skull and head, not elsewhere classified] Onset: 12-02-2024 Episodic Rheumatoid arthritis and related disease (20 sources) Rheumatoid arthritis; Translations: [Rheumatoid arthritis, unspecified] Onset: 11-29-2020 Resolved: 05-12-2024 11-29-2020 Chronic Screening and history of mental health and substance abuse codes (4 sources) Patient encounter status; Translations: [Encounter for screening for depression] Onset: 12-02-2024 12-02-2024 Episodic Results Test Name Value Interpretation Reference Range Facility [facility] 06-21-2025 [facility] Telephone (NAVWST) ISAC PERES ([id number]) 1990 F Date Time Provider Department 06/21/25 WATOSN SHOOK During your visit today, we recorded the following information about you: Watson Shook, [employer] 06/21/2025 1:06 PM Signed This Sw received Sw consult for patient regarding disability application questions. Patient notes that she goes through [employer] and is wondering if there is a SW linked up with [facility] that would be helpful to her needs. This Sw will forward note to LEONELA Chavez [facility] to see if they have a SW embedded in their dept that would have resources for patient. 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 Sw had also mentioned to patient before patient noted [employer] SSA Disability Info packet and patient asked this SW to send her that as well. Chiara Mitchell, [place] 06/22/2025 9:37 AM Signed Call placed to Isac following up from call with community mental health social worker. No answer. Left voicemail with office call back and [employer] message sent. Chiara GODINEZ, RN, [facility] June 22, 2025 9:31 AM Allergies As of Date: 06/21/2025 (No Known Allergies) Date Reviewed: 05/09/2025 Reviewed by: Lena Degroot MD - Fully Assessed Reason for Visit: Disability [Other] Prescriptions as of 06/22/2025 - Cholecalciferol, Vitamin D3, 125 mcg (5,000 unit) cap Take 1 capsule by mouth once daily. - hydroquinone (ELDOQUIN FORTE) 4 % cream Use on dark spots every night for up to 3 months, take a 1 month break, then repeat cycle as needed - tretinoin (RETIN-A) 0.025 % topical cream Apply a tiny (pea-sized) amount to the entire face three times weekly x for 1 week, then every other night for 1-2 weeks, then increase to nightly as tolerated - gabapentin (NEURONTIN) 300 mg capsule TAKE 2 CAPSULES BY MOUTH THREE TIMES DAILY. MAY TAKE ADDITIONAL CAP NEEDED FOR PAIN - amphetamine-dextroamph etamine XR (ADDERALL XR) 30 mg capsule Take 1 capsule by mouth once daily for 30 days. Patient should start on April 12, 2025. - amphetamine-dextroamph etamine XR (ADDERALL XR) 30 mg capsule Take 1 capsule by mouth once daily for 30 days. Patient should start on May 12, 2025. - amphetamine-dextroamph etamine XR (ADDERALL XR) 30 mg capsule Take 1 capsule by mouth once daily for 30 days. - amantadine HCl (SYMMETREL) 100 mg capsule Take 1 capsule by mouth twice daily - baclofen 10 mg tablet Take 1 tablet by mouth in the evening and 3 tablet at bedtime - SUMAtriptan (IMITREX) 100 mg tablet Take 1 tablet (100 mg) by mouth as needed for migraine headache (see administration instructions). START AT ONSET OF HEADACHE. MAY REPEAT DOSE AFTER 2 HOURS. - albuterol HFA (PROVENTIL HFA, VENTOLIN HFA) 90 mcg/actuation inhaler Inhale 2 Puffs as instructed every 4 hours as needed for wheezing/shortness of breath. - ocrelizumab (OCREVUS INTRAVENOUS) Inject intravenously once every 6 months. Meds Comments as of 03/18/2018: Problem List As Of Date 06/21/2025 Noted Resolved Dysmenorrhea [N94.6] 11/04/2006 04/15/2011 Supervision of normal first [Z34.00] 08/21/2009 03/28/2011 Cholelithiasis NOS [K80.20] 10/08/2009 03/28/2011 Previous section [Z98.891] 02/26/2011 04/15/2011 Pain in joint, shoulder region [M25.519] 08/12/2012 05/12/2024 Obesity, Class III, BMI 40-49.9 (morbid obesity*01/19/2018 05/12/2024 SHABNAM (generalized anxiety disorder) [F41.1] 11/29/2020 05/12/2024 Rheumatoid arthritis (HCC) [M06.9] 11/29/2020 05/12/2024 Adult ADHD [F90.9] 12/24/2020 Multiple sclerosis (HCC) [G35] 09/05/2022 Encounter Status:Closed by CHIARA MITCHELL on 06/22/25 [facility] CNTHERAPYon 06-20-2025 CNTHERAPY OT/PT/Speech Visit (OTMCMN) ISAC PERES ([id number]) 1990 F Date Time Provider Department 06/20/25 2:00 PM [facility] Date Time Provider Department Center 06/20/2025 2:00 PM [id number] Reason for Visit: [facility] [3553] Visit Diagnosis:Multiple sclerosis (HCC) [G35] Allergies As of Date: 06/20/2025 (No Known Allergies) Date Reviewed: 05/09/2025 Reviewed by: Lena Degroot MD - Fully Assessed Prescriptions as of 06/21/2025 - Cholecalciferol, Vitamin D3, 125 mcg (5,000 unit) cap Take 1 capsule by mouth once daily. - hydroquinone (ELDOQUIN FORTE) 4 % cream Use on dark spots every night for up to 3 months, take a 1 month break, then repeat cycle as needed - tretinoin (RETIN-A) 0.025 % topical cream Apply a tiny (pea-sized) amount to the entire face three times weekly x for 1 week, then every other night for 1-2 weeks, then increase to nightly as tolerated - gabapentin (NEURONTIN) 300 mg capsule TAKE 2 CAPSULES BY MOUTH THREE TIMES DAILY. MAY TAKE ADDITIONAL CAP NEEDED FOR PAIN - amphetamine-dextroamph etamine XR (ADDERALL XR) 30 mg capsule Take 1 capsule by mouth once daily for 30 days. Patient should start on April 12, 2025. - amphetamine-dextroamph etamine XR (ADDERALL XR) 30 mg capsule Take 1 capsule by mouth once daily for 30 days. Patient should start on May 12, 2025. - amphetamine-dextroamph etamine XR (ADDERALL XR) 30 mg capsule Take 1 capsule by mouth once daily for 30 days. - amantadine HCl (SYMMETREL) 100 mg capsule Take 1 capsule by mouth twice daily - baclofen 10 mg tablet Take 1 tablet by mouth in the evening and 3 tablet at bedtime - SUMAtriptan (IMITREX) 100 mg tablet Take 1 tablet (100 mg) by mouth as needed for migraine headache (see administration instructions). START AT ONSET OF HEADACHE. MAY REPEAT DOSE AFTER 2 HOURS. - albuterol HFA (PROVENTIL HFA, VENTOLIN HFA) 90 mcg/actuation inhaler Inhale 2 Puffs as instructed every 4 hours as needed for wheezing/shortness of breath. - ocrelizumab (OCREVUS INTRAVENOUS) Inject intravenously once every 6 months. Meds Comments as of 03/18/2018: Normal [facility] POLYSOMNOGRAM (PSG)/HOME SLE EP APNEA TEST (HSAT)on 06-02-2025 POLYSOMNOGRAM (PSG)/HOME SLEEP APNEA TEST (HSAT) [facility] at [address], [address], [place] [address] ; Home Sleep Apnea Test (HSAT) Study Report Name: ISAC PERES Date of Study: 06/02/2025 [facility]#: [id number] Age: 34 (: 1990) ESS: 02/25 Neck Circ. (cm): 15.5 Height (cm): 160.0 Weight (kg): 97.5 BMI: 38.1 Referring Provider: LENA DEGROOT Mailcode: [id number] Sleep history: The patient is a 34 year old female with a history of fatigue, snoring, waking up with dry mouth/sore throat, and difficulty initiating and maintaining sleep. The patient is here for assessment of obstructive sleep apnea. The patient endorses being a habitual side sleeper. Pertinent medical history: Insomnia, Restless legs syndrome Medications: Albuterol, Amantadine, Baclofen, Cholecalciferol, Sumatriptan Sleep procedure: PSG unattended Type III, minimum of 4 parameters (14852) Procedure: This study was performed using a Type III ambulatory PSG device and was unattended. The patient was instructed on proper use of the device by a registered learning technologist. The monitored parameters included heart rate, oxygen saturation, continuous airflow with thermistor and nasal pressure transducer, snoring via nasal pressure transducer, chest and abdominal effort, and body position. CECILIO definition: Respiratory event index (CECILIO), calculated as respiratory events x 60 / TRT (total recording time in minutes). Note: the apnea hypopnea index has been replaced by the respiratory event index for home sleep apnea test. Since the home sleep apnea test does not measure sleep, the CECILIO is most accurate index of respiratory events. The CECILIO is a surrogate of the AHI per the AASM Manual for Scoring of Sleep and Associated Events version 3. Apnea definition: The peak signal excursions drop by >90% of pre-event baseline using an oronasal thermal sensor (diagnostic study), PAP device flow (titration study) or an alternative apnea sensor (diagnostic study). The duration of the >90% drop in signal excursion is >=10 seconds. Hypopnea definition: The peak signal excursions drop by >= 30% of pre-event baseline using nasal pressure (diagnostic study), PAP device flow (titration study) or an alternative hypopnea sensor (diagnostic study). The duration of the >= 30% drop in signal excursion is >=10 seconds. There is a greater than or equal to 4% oxygen desaturation from pre-event baseline. RESPIRATORY DATA: The study started at 00:05:50 and ended at 09:00:17 and the total recording time was 534 minutes. By convention, sleep is assumed for the whole recording. Snoring was noted. There was a total of 12 respiratory events. Of these events, the total number of apneas was 0 (0 obstructive, 0 mixed, and 0 central (0.0%)) and 12 hypopneas. The central apnea index (KATHARINA) was 0.0. The respiratory event index (CECILIO) was 1.3 events per hour of study time. The mean oxygen saturation during the study was 95.0%, with a minimum oxygen saturation of 90.0%. The patient spent 0.1 minutes at oxygen saturation measured less than 90% (0.0% of recording time) and 0.1 minutes at oxygen saturation measured at or less than 88% (0.0% of recording time). Time CECILIO/AHI Supine 534.5 min 1.3 Off-Supine 0.0 min -- Total 534.5 min 1.3 ECG DATA: The average heart rate was 69 bpm with a range of 55 bpm to 93 bpm. ICSD DIAGNOSIS: Primary Snoring [R06.83] Sleep Disorder, Unspecified [G47.9] IMPRESSION/RECOMMENDAT IONS: 1. This study neither confirms nor refutes a diagnosis of obstructive sleep apnea as HSAT does not measure certain types of respiratory events that can only be measured on an in-laboratory polysomnogram 2. Recommend an in-laboratory polysomnogram if sleep apnea remains highly suspected. INTERPRETING PHYSICIAN: Huma Weinstein M.D. I attest that I have performed epoch by epoch review of the entire raw data and find this study to be technically adequate. Report Digitally Signed By: HUMA WEINSTEIN MD (06/13/2025 4:55:37 PM) [INVALID SIGNATURE] HUMA WEINSTEIN MD (06/13/2025 4:55:54 PM) [facility] (DERMMN[facility] ISAC PERES ([id number]) 1990 F Date Time Provider Department 04/17/25 SHAHRAM BROOKS DERMMN During your visit today, we recorded the following information about you: Shahram Brooks MD 04/17/2025 1:30 PM Signed Please call to schedule 3 month follow up with me, virtual or in office. Thanks! Shahram Brooks MD April 17, 2025 1:30 PM Allergies As of Date: 04/17/2025 (No Known Allergies) Date Reviewed: 04/17/2025 Reviewed by: Marleny Cheung RN - Fully Assessed Reason for Visit: Appointment [[id number]] Prescriptions as of 04/17/2025 - hydroquinone (ELDOQUIN FORTE) 4 % cream Use on dark spots every night for up to 3 months, take a 1 month break, then repeat cycle as needed - tretinoin (RETIN-A) 0.025 % topical cream Apply a tiny (pea-sized) amount to the entire face three times weekly x for 1 week, then every other night for 1-2 weeks, then increase to nightly as tolerated - amphetamine-dextroamph etamine XR (ADDERALL XR) 30 mg capsule Take 1 capsule by mouth once daily for 30 days. Patient should start on April 12, 2025. - amphetamine-dextroamph etamine XR (ADDERALL XR) 30 mg capsule Take 1 capsule by mouth once daily for 30 days. Patient should start on May 12, 2025. - amphetamine-dextroamph etamine XR (ADDERALL XR) 30 mg capsule Take 1 capsule by mouth once daily for 30 days. - amantadine HCl (SYMMETREL) 100 mg capsule Take 1 capsule by mouth twice daily - ubrogepant (UBRELVY) 50 mg tablet Take 1 tablet by mouth as needed (Migraine Headache). - baclofen 10 mg tablet Take 1 tablet by mouth in the evening and 3 tablet at bedtime - gabapentin (NEURONTIN) 300 mg capsule TAKE 2 CAPSULES BY MOUTH THREE TIMES DAILY. MAY TAKE ADDITIONAL 300 MG NEEDED FOR PAIN. - SUMAtriptan (IMITREX) 100 mg tablet Take 1 tablet (100 mg) by mouth as needed for migraine headache (see administration instructions). START AT ONSET OF HEADACHE. MAY REPEAT DOSE AFTER 2 HOURS. - Cholecalciferol, Vitamin D3, 125 mcg (5,000 unit) cap Take 1 capsule by mouth once daily. - albuterol HFA (PROVENTIL HFA, VENTOLIN HFA) 90 mcg/actuation inhaler Inhale 2 Puffs as instructed every 4 hours as needed for wheezing/shortness of breath. - ocrelizumab (OCREVUS INTRAVENOUS) Inject intravenously once every 6 months. Meds Comments as of 03/18/2018: Problem List As Of Date 04/17/2025 Noted Resolved Dysmenorrhea [N94.6] 11/04/2006 04/15/2011 Supervision of normal first [Z34.00] 08/21/2009 03/28/2011 Cholelithiasis NOS [K80.20] 10/08/2009 03/28/2011 Previous section [Z98.891] 02/26/2011 04/15/2011 Pain in joint, shoulder region [M25.519] 08/12/2012 05/12/2024 Obesity, Class III, BMI 40-49.9 (morbid obesity*01/19/2018 05/12/2024 SHABNAM (generalized anxiety disorder) [F41.1] 11/29/2020 05/12/2024 Rheumatoid arthritis (HCC) [M06.9] 11/29/2020 05/12/2024 Adult ADHD [F90.9] 12/24/2020 Multiple sclerosis (HCC) [G35] 09/05/2022 Encounter Status:Closed by SHAHRAM BROOKS on 04/17/[address] [facility] 25-hydroxyvitamin D3 [Mass/Vol] 63.7 ng/mL Normal 31.0-80.[address] [facility] Comment on above: Order Comment: Speci men Type: BLOOD SPECIMENOrdering Facility: [facility] Address: [address] [place] [address] Result Comment: Clas sification of 25 [place] Vitamin D status: Deficiency/Insufficiency: < or = 30 ng/ml. Sufficiency/Optimal Levels: 31-80 ng/mL Toxicity: > 100 ng/mL. Test performed by chemiluminescent immunoassay. Performed By: #### 1 989-3 ####[facility] [id number] [place] [id number] [place] 25-hydroxyvitamin D3 [Mass/V ol]on 04-06-2025 Interpretation and review of laboratory results Normal [facility] The reference range interval was based on an analysis of samples from healthy adults and may not pertain to children from 0-18 years old. [facility] CBC W Auto Differential pane l (Bld)on 04-06-2025 Basophils (Bld) [#/Vol] 0.06 10*3/uL [facility] Basophils/100 WBC (Bld) 0.9 % [facility] Differential cell count method Nom (Bld) Auto [facility] Eosinophils (Bld) [#/Vol] 0.18 10*3/uL [facility] Eosinophils/100 WBC (Bld) 2.7 % [facility] Erythrocyte distribution width (RBC) [Ratio] 12.6 % 11.5 - 15.0 % [facility] Hematocrit (Bld) [Volume fraction] 38.2 % 36.0 - 46.0 % [facility] Hemoglobin (Bld) [Mass/Vol] 12.8 g/dL 11.5 - 15.5 g/dL [facility] Immature granulocytes (Bld) [#/Vol] [facility] Immature granulocytes/100 WBC (Bld) 0.2 % [facility] Lymphocytes (Bld) [#/Vol] 2.27 10*3/uL [facility] Lymphocytes/100 WBC (Bld) 34.3 % [facility] MCH (RBC) [Entitic mass] 30.6 pg 26.0 - 34.0 pg [facility] MCHC (RBC) [Mass/Vol] 33.5 g/dL 30.5 - 36.0 g/dL [facility] MCV (RBC) [Entitic vol] 91.4 fL 80.0 - 100.0 fL [facility] Monocytes (Bld) [#/Vol] 0.54 10*3/uL [facility] Monocytes/100 WBC (Bld) 8.2 % [facility] Neutrophils (Bld) [#/Vol] 3.55 10*3/uL [facility] Neutrophils/100 WBC (Bld) 53.7 % [facility] Nucleated RBC (Bld) [#/Vol] [facility] Nucleated RBC/100 WBC (Bld) [Ratio] 0 % /100 WBC [facility] Platelet mean volume (Bld) [Entitic vol] 9.8 fL 9.0 - 12.7 fL [facility] Platelets (Bld) [#/Vol] 293 10*3/uL [facility] RBC (Bld) [#/Vol] 4.18 10*6/uL 3.90 - 5.2 0 m/uL [facility] WBC (Bld) [#/Vol] 6.61 10*3/uL [facility] Basophils (Bld) [#/Vol] 0.06 10*3/uL Normal <0.[address] [facility] Comment on above: Order Comment: Speci men Type: BLOOD SPECIMEN [facility] Address: [address] [place] [address] Performed By: #### 2 4323-8 #### [facility] CLIA [id number] [address] [place] [address] [place] Basophils/100 WBC (Bld) 0.9 % Normal [facility] Comment on above: Order Comment: Speci men Type: BLOOD SPECIMEN [facility] Address: [address] [place] [address] Performed By: #### 2 4323-8 #### [facility] CLIA [id number] [address] [place] [address] [place] Differential cell count method Nom (Bld) Auto Normal [facility] Comment on above: Order Comment: Speci men Type: BLOOD SPECIMEN [facility] Address: [address] [place] [address] Performed By: #### 2 4323-8 #### [facility] CLIA [id number] [address] [place] [address] [place] Eosinophils (Bld) [#/Vol] 0.18 10*3/uL Normal <0.[address] [facility] Comment on above: Order Comment: Speci men Type: BLOOD SPECIMEN [facility] Address: [address] [place] [address] Performed By: #### 2 4323-8 #### [facility] CLIA [id number] [address] [place] [address] [place] Eosinophils/100 WBC (Bld) 2.7 % Normal [facility] Comment on above: Order Comment: Speci men Type: BLOOD SPECIMEN [facility] Address: [address] [place] [address] Performed By: #### 2 4323-8 #### [facility] CLIA [id number] [address] [place] [address] [place] Erythrocyte distribution width (RBC) [Ratio] 12.6 % Normal 11.5-15.[address] [facility] Comment on above: Order Comment: Speci men Type: BLOOD SPECIMEN [facility] Address: [address] [place] [address] Performed By: #### 2 4323-8 #### [facility] CLIA [id number] [address] [place] [address] [place] Hematocrit (Bld) [Volume fraction] 38.2 % Normal 36.0-46.[address] [facility] Comment on above: Order Comment: Speci men Type: BLOOD SPECIMEN [facility] Address: [address] [place] [address] Performed By: #### 2 4323-8 #### [facility] CLIA [id number] [address] [place] [address] [place] Hemoglobin (Bld) [Mass/Vol] 12.8 g/dL Normal 11.5-15.[address] [facility] Comment on above: Order Comment: Speci men Type: BLOOD SPECIMEN [facility] Address: [address] [place] [address] Performed By: #### 2 4323-8 #### [facility] CLIA [id number] [address] [place] [address] [place] Immature granulocytes (Bld) [#/Vol] 10*3/uL Normal <0.[address] [facility] Comment on above: Order Comment: Speci men Type: BLOOD SPECIMEN [facility] Address: [address] [place] [address] Performed By: #### 2 4323-8 #### [facility] CLIA [id number] [address] [place] [address] [place] Immature granulocytes/100 WBC (Bld) 0.2 % Normal [facility] Comment on above: Order Comment: Speci men Type: BLOOD SPECIMEN [facility] Address: [address] [place] [address] Performed By: #### 2 4323-8 #### [facility] CLIA [id number] [address] [place] [address] [place] Lymphocytes (Bld) [#/Vol] 2.27 10*3/uL Normal 1.00-4.[address] [facility] Comment on above: Order Comment: Speci men Type: BLOOD SPECIMEN [facility] Address: [address] [place] [address] Performed By: #### 2 4323-8 #### [facility] CLIA [id number] [address] [place] [address] [place] Lymphocytes/100 WBC (Bld) 34.3 % Normal [facility] Comment on above: Order Comment: Speci men Type: BLOOD SPECIMEN [facility] Address: [address] [place] [address] Performed By: #### 2 4323-8 #### [facility] CLIA [id number] [address] [place] [address] [place] MCH (RBC) [Entitic mass] 30.6 pg Normal 26.0-34.[address] [facility] Comment on above: Order Comment: Speci men Type: BLOOD SPECIMEN [facility] Address: [address] [place] [address] Performed By: #### 2 4323-8 #### [facility] CLIA [id number] [address] [place] [address] [place] MCHC (RBC) [Mass/Vol] 33.5 g/dL Normal 30.5-36.0 [facility] Comment on above: Order Comment: Speci men Type: BLOOD SPECIMEN [facility] Address: [address] [place] [address] Performed By: #### 2 4323-8 #### [facility] CLIA [id number] [address] [place] [address] [place] MCV (RBC) [Entitic vol] 91.4 fL Normal 80.0-100.[address] [facility] Comment on above: Order Comment: Speci men Type: BLOOD SPECIMEN [facility] Address: [address] [place] [address] Performed By: #### 2 4323-8 #### [facility] CLIA [id number] [address] [place] [address] [place] Monocytes (Bld) [#/Vol] 0.54 10*3/uL Normal <0.[address] [facility] Comment on above: Order Comment: Speci men Type: BLOOD SPECIMEN [facility] Address: [address] [place] [address] Performed By: #### 2 4323-8 #### [facility] CLIA [id number] [address] [place] [address] [place] Monocytes/100 WBC (Bld) 8.2 % Normal [facility] Comment on above: Order Comment: Speci men Type: BLOOD SPECIMEN [facility] Address: [address] [place] [address] Performed By: #### 2 4323-8 #### [facility] CLIA [id number] [address] [place] [address] [place] Neutrophils (Bld) [#/Vol] 3.55 10*3/uL Normal 1.45-7.[address] [facility] Comment on above: Order Comment: Speci men Type: BLOOD SPECIMEN [facility] Address: [address] [place] [address] Performed By: #### 2 4323-8 #### [facility] CLIA [id number] [address] [place] [address] [place] Neutrophils/100 WBC (Bld) 53.7 % Normal [facility] Comment on above: Order Comment: Speci men Type: BLOOD SPECIMEN [facility] Address: [address] [place] [address] Performed By: #### 2 4323-8 #### [facility] CLIA [id number] [address] [place] [address] [place] Nucleated RBC (Bld) [#/Vol] 10*3/uL Normal <0.[address] [facility] Comment on above: Order Comment: Speci men Type: BLOOD SPECIMEN [facility] Address: [address] [place] [address] Performed By: #### 2 4323-8 #### [facility] CLIA [id number] [address] [place] [address] [place] Nucleated RBC/100 WBC (Bld) [Ratio] 0.0 /100 WBC Normal [facility] Comment on above: Order Comment: Speci men Type: BLOOD SPECIMEN [facility] Address: [address] [place] [address] Performed By: #### 2 4323-8 #### [facility] CLIA [id number] [address] [place] [address] [place] Platelet mean volume (Bld) [Entitic vol] 9.8 fL Normal 9.0-12.[address] [facility] Comment on above: Order Comment: Speci men Type: BLOOD SPECIMEN [facility] Address: [address] [place] [address] Performed By: #### 2 4323-8 #### [facility] CLIA [id number] [address] [place] [address] [place] Platelets (Bld) [#/Vol] 293 10*3/uL Normal 150-[address] [facility] Comment on above: Order Comment: Speci men Type: BLOOD SPECIMEN [facility] Address: [address] [place] [address] Performed By: #### 2 4323-8 #### [facility] CLIA [id number] [address] [place] [address] [place] RBC (Bld) [#/Vol] 4.18 10*6/uL Normal 3.90-5.20 [facility] Comment on above: Order Comment: Speci men Type: BLOOD SPECIMEN [facility] Address: [address] [place] [address] Performed By: #### 2 4323-8 #### [facility] CLIA [id number] [address] [place] [address] [place] WBC (Bld) [#/Vol] 6.61 10*3/uL Normal 3.70-11.00 [facility] Comment on above: Order Comment: Speci men Type: BLOOD SPECIMEN [facility] Address: [address] [place] [address] Performed By: #### 2 4323-8 #### [facility] CLIA [id number] [address] [place] [address] [place] CD19 ABSOLUTE COUNTon 2024 CD3-CD19+ cells (Bld) [#/Vol] 0 cells/uL Low 75-[address] [facility] Comment on above: Order Comment: Speci men Type: BLOOD SPECIMEN [facility] Address: [address] [place] [address] Performed By: #### A BS19 #### [facility] CLIA [id number] [address] [place] [address] [place] CD3-CD19+ cells/100 cells (Bld) 0 % Low 5-[address] [facility] Comment on above: Order Comment: Speci men Type: BLOOD SPECIMEN [facility] Address: [address] [place] [address] Performed By: #### A BS19 #### [facility] CLIA [id number] [address] [place] [address] [place] Lymphocytes/100 WBC FC (Bld) Normal [facility] Comment on above: Order Comment: Speci men Type: BLOOD SPECIMEN [facility] Address: [address] [place] [address] Performed By: #### A BS19 #### [facility] CLIA [id number] [address] [place] [address] [place] CNOVon 04-06-2025 CNOV Office Visit (NEMN ) ISAC PERES ([id number]) 1990 F Date Time Provider Department 04/06/25 1:00 PM LIZET BROWN [facility] During your visit today, we recorded the following information about you: Pulse Blood pressure Weight Height 108/minute 143/79 97.5 kg 1.6 m Lizet Brown PA-C 04/06/2025 4:09 PM [facility] MULTIPLE SCLEROSIS FOLLOWUP/ESTABLISHED PATIENT VISIT PRINCIPAL NEUROLOGIC DIAGNOSIS: multiple sclerosis DISEASE SUMMARY Date of onset: 2019 Date of diagnosis of MS: NA Disease course at onset: Relapsing-Remitting Current disease course: Progressive with relapses Previous disease therapies: NA Current disease therapy: Ocrevus (started 10/02/22) Most recent MRI brain: 10/06/24 Most recent MRI cervical spine: 02/27/23 Most recent MRI thoracic spine:10/02/23 CSF: NA VZV serology result and date: NA AQP4-IgG: NA MOG-IgG: NA CHIEF COMPLAINT: Follow-up on MS disease modifying therapy INTERVAL HISTORY: Usual treating team: Patricia/Kevin The patient is accompanied by . The patient was last seen 10/11/24, currently taking Ocrevus. Tolerated well. Since the patient's last visit the patient reports overall feeling worse. Family camping trip didn't go well - too tired by day 3 and mostly slept Hasn't been eating as much - 1-2 small meals due to low appetite - nausea when eating - started around Nov 2024 - limited food that doesn't make her sick (hashbrown and fruit) - acupuncture was helpful but wasn't covered by insurance - has appointment with GI upcoming in Jun Sleep worse over the last couple weeks - increased pain recently - more irritable/ short-fused - insomnia and interrupted sleep Never felt like she returned to baseline after prolonged illness in September/October [place] like having flares during end of school year - hard to describe symptoms but all felt similar to past sx - right leg not functioning - right leg can feel swollen and harder lifting/tripping - more headaches/intense headaches - around time of menstrual cycle. On rescue meds (only used Ubrelvy once) but no preventative headaches Every other period, would get yeast infection Notes hair thinning and ongoing issues with skin pigmentation changes in face - interested in seeing dermatology SUBJECTIVE AND REVIEW OF SYSTEMS: Neuro-QoL Functions (higher=better functioning) Flowsheet Row Appointment from 04/06/2025 in [facility] from 10/11/2024 in [facility] from 03/31/2024 in [facility] Upper Extremity Domain T Score 42 42 45 Lower Extremity Domain T Score 38 40 47 Cognitive Function Domain T Score 34 35 32 Positive Affect Well Being T Score -- -- -- Ability To Participate In Social Roles T Score 42 23 43 Satisfaction With Social Roles T Score 36 33 35 Neuro-QoL Symptoms (higher=worse symptoms) Flowsheet Row Appointment from 04/06/2025 in [facility] from 10/11/2024 in [facility] from 04/28/2024 in Psychology Sleep Domain T Score 66 67 -- Fatigue Domain T Score 63 73 -- Anxiety Domain T Score 54 54 -- Depression Domain T Score 47 51 46 Stigma Domain T Score 59 59 -- Emotional Behavior Dyscontrol T Score -- -- -- *NeuroQoL is a multi-domain patient-reported quality of life questionnaire. PHQ-9 Flowsheet Row Appointment from 04/06/2025 in [facility] Office Visit from 12/02/2024 in [facility] PHQ-9 Score 16 12 *PHQ-9 is a questionnaire for depressive symptoms, with scores 0-4 indicating none, 5-9 mild, 10-14 moderate, 15-19 moderately severe, and 20-27 severe symptoms. PROMIS-10 Flowsheet Row Appointment from 04/06/2025 in [facility] from 10/11/2024 in [facility] Global Physical Health T Score 34.9 23.5 Global Mental Health T Score 36.3 36.3 0-10 Standard Pain Scale 3 2 *PROMIS-10 is a patient-reported quality of life measure, typically reported as physical and mental domains. Here scores are expressed as percentiles, where the lowest possible score is one, the highest possible score is 99, and 50 is average. Refer to patient-entered data. Mood: PHQ9 responses reviewed and appear below Bowel: Normal Pain related to today's visit:reviewed on nursing intake documentation Fatigue: Severe Memory/Concentration: See HPI PAST HISTORY was reviewed and updated: PAST MEDICAL HISTORY Diagnosis Date Adjustment disorder with depressed mood Dysmenorrhea Encounter for insertion or removal of intrauterine contraceptive device 06/12/2011 Multiple sclerosis (HCC) Unspecified asthma(493.90) SPORTS INDUCED, NO PROBLEMS SINCE AGE 16 PAST SURGICAL HISTORY Procedure Laterality Date DELIVERY ONLY 11/11/2009 DELIVERY ONLY 03/31/11 , low transverse ESOPHAGOGASTRODUODENOS COPY TRANSORAL DIAGNOSTIC 02/18/2018 EGD HYSTEROSCOPY 06/10/20 (more content not included)... Normal [facility] Comprehensive metabolic 2000 panelon 04-06-2025 Albumin [Mass/Vol] 3.8 g/dL Low 3.9 - 4.9 g/dL [facility] ALP [Catalytic activity/Vol] 115 U/L 34 - 123 U/L [facility] ALT [Catalytic activity/Vol] 12 U/L 7 - 38 U/L [facility] Anion gap [Moles/Vol] 10 mmol/L 8 - 15 mmol/L [facility] AST [Catalytic activity/Vol] 15 U/L 13 - 35 U/L [facility] Comment on above: Results may be false ly increased due to interference from hemolysis. Suggest reorder as clinically indicated. Bilirubin [Mass/Vol] 0.3 mg/dL 0.2 - 1 .3 mg/dL [facility] Calcium [Mass/Vol] 9.2 mg/dL 8.5 - 10. 2 mg/dL [facility] Chloride [Moles/Vol] 107 mmol/L 98 - 10 7 mmol/L [facility] CO2 [Moles/Vol] 20 mmol/L Low 22 - 30 mmol/L [facility] Creatinine [Mass/Vol] 1.01 mg/dL High 0.58 - 0.96 mg/dL [facility] GFR/1.73 sq M.predicted among non-blacks MDRD (S/P/Bld) [Vol rate/Area] 74 mL/min/{1.73_m2} - PINF [facility] Comment on above: Estimated Glomerular Filtration Rate (eGFR) is calculated using the 2020 CKD-EPI creatinine equation. This equation utilizes serum creatinine, sex, and age as parameters. The creatinine assay has traceable calibration to isotope dilution-mass spectrometry. Refer to KDIGO guidelines for clinical interpretation. In patients with unstable renal function, e.g. those with acute kidney injury, the eGFR may not accurately reflect actual GFR. Glucose [Mass/Vol] 85 mg/dL 74 - 99 mg/dL [facility] Comment on above: The [place] Diab[employer] Association (ADA) provides guidance for cutoff values for fasting glucose and random glucose. The ADA defines fasting as no caloric intake for at least 8 hours. Fasting plasma glucose results between 100 to 125 mg/dL indicate increased risk for diabetes (prediabetes). Fasting plasma glucose results greater than or equal to 126 mg/dL meet the criteria for diagnosis of diabetes. In the absence of unequivocal hyperglycemia, results should be confirmed by repeat testing. In a patient with classic symptoms of hyperglycemia or hyperglycemic crisis, random plasma glucose results greater than or equal to 200 mg/dL meet the criteria for diagnosis of diabetes. Reference: Standards of Medical Care in Diabetes 2016, [place] [employer]. Diabetes Care. 2016.39(Suppl 1). Interpretation and review of laboratory results Abnormal [facility] Potassium [Moles/Vol] 4.8 mmol/L 3.7 - 5.1 mmol/L [facility] Protein [Mass/Vol] 6.8 g/dL 6.3 - 8.0 g/dL [facility] Sodium [Moles/Vol] 137 mmol/L 136 - 144 mmol/L [facility] Urea nitrogen [Mass/Vol] 12 mg/dL 7 - 21 mg/dL [facility] Albumin [Mass/Vol] 3.8 g/dL Low 3.9-4.9 [facility] Comment on above: Order Comment: Speci men Type: BLOOD SPECIMEN [facility] Address: [address] [place] [address] Performed By: #### 2 4323-8 #### [facility] CLIA [id number] [address] [place] [address] [place] ALP [Catalytic activity/Vol] 115 U/L Normal 34-[address] [facility] Comment on above: Order Comment: Speci men Type: BLOOD SPECIMEN [facility] Address: [address] [place] [address] Performed By: #### 2 4323-8 #### [facility] CLIA [id number] [address] [place] [address] [place] ALT [Catalytic activity/Vol] 12 U/L Normal 7-[address] [facility] Comment on above: Order Comment: Speci men Type: BLOOD SPECIMEN [facility] Address: [address] [place] [address] Performed By: #### 2 4323-8 #### [facility] CLIA [id number] [address] [place] [address] [place] Anion gap [Moles/Vol] 10 mmol/L Normal 8-15 [facility] Comment on above: Order Comment: Speci men Type: BLOOD SPECIMEN [facility] Address: [address] [place] [address] Performed By: #### 2 4323-8 #### [facility] CLIA [id number] [address] [place] [address] [place] AST [Catalytic activity/Vol] 15 U/L Normal 13-35 [facility] [facility] Comment on above: Order Comment: Speci men Type: BLOOD SPECIMEN Ordering Facility: [facility] Address: [address] [place] [address] Result Comment: Resu lts may be falsely increased due to interference from hemolysis. Suggest reorder as clinically indicated. Performed By: #### 2 4323-8 #### [facility] CLIA [id number] [address] [place] [address] [place] Bilirubin [Mass/Vol] 0.3 mg/dL Normal 0.2-1.3 [facility] Comment on above: Order Comment: Speci men Type: BLOOD SPECIMEN Ordering Facility: [facility] Address: [address] [place] [address] Performed By: #### 2 4323-8 #### [facility] CLIA [id number] [address] [place] [address] [place] Calcium [Mass/Vol] 9.2 mg/dL Normal 8.5-10.2 [facility] Comment on above: Order Comment: Speci men Type: BLOOD SPECIMEN Ordering Facility: [facility] Address: [address] [place] [address] Performed By: #### 2 4323-8 #### [facility] CLIA [id number] [address] [place] [address] [place] Chloride [Moles/Vol] 107 mmol/L Normal 98-107 [facility] Comment on above: Order Comment: Speci men Type: BLOOD SPECIMEN Ordering Facility: [facility] Address: [address] [place] [address] Performed By: #### 2 4323-8 #### [facility] CLIA [id number] [address] [place] [address] [place] CO2 [Moles/Vol] 20 mmol/L Low 22-[address] [facility] Comment on above: Order Comment: Speci men Type: BLOOD SPECIMEN Ordering Facility: [facility] Address: [address] [place] [address] Performed By: #### 2 4323-8 #### [facility] CLIA [id number] [address] [place] [address] [place] Creatinine [Mass/Vol] 1.01 mg/dL High 0.58-0.96 [facility] Comment on above: Order Comment: Speci men Type: BLOOD SPECIMEN Ordering Facility: [facility] Address: [address] [place] [address] Performed By: #### 2 4323-8 #### [facility] CLIA [id number] [address] [place] [address] [place] Creatinine and Glomerular filtration rate.predicted panel (S/P/Bld) 74 mL/min/1.73m??? Normal >=[address] [facility] Comment on above: Order Comment: Speci men Type: BLOOD SPECIMEN Ordering Facility: [facility] Address: [address] [place] [address] Result Comment: Susy mated Glomerular Filtration Rate (eGFR) is calculated using the 2020 CKD-EPI creatinine equation. This equation utilizes serum creatinine, sex, and age as parameters. The creatinine assay has traceable calibration to isotope dilution-mass spectrometry. Refer to KDIGO guidelines for clinical interpretation. In patients with unstable renal function, e.g. those with acute kidney injury, the eGFR may not accurately reflect actual GFR. Performed By: #### 2 4323-8 #### [facility] CLIA [id number] [address] [place] [address] [place] Glucose [Mass/Vol] 85 mg/dL Normal 74-99 [facility] Comment on above: Order Comment: Speci men Type: BLOOD SPECIMEN Ordering Facility: [facility] Address: [address] [place] [address] Result Comment: The [place] Diabetes Association (ADA) provides guidance for cutoff values for fasting glucose and random glucose. The ADA defines fasting as no caloric intake for at least 8 hours. Fasting plasma glucose results between 100 to 125 mg/dL indicate increased risk for diabetes (prediabetes). Fasting plasma glucose results greater than or equal to 126 mg/dL meet the criteria for diagnosis of diabetes. In the absence of unequivocal hyperglycemia, results should be confirmed by repeat testing. In a patient with classic symptoms of hyperglycemia or hyperglycemic crisis, random plasma glucose results greater than or equal to 200 mg/dL meet the criteria for diagnosis of diabetes. Reference: Standards of Medical Care in Diabetes 2016, [place] [employer]. Diabetes Care. 2016.39(Suppl 1). Performed By: #### 2 4323-8 #### [facility] CLIA [id number] [address] [place] [address] [place] Potassium [Moles/Vol] 4.8 mmol/L Normal 3.7-5.1 [facility] Comment on above: Order Comment: Speci men Type: BLOOD SPECIMEN Ordering Facility: [facility] Address: [address] [place] [address] Performed By: #### 2 4323-8 #### [facility] CLIA [id number] [address] [place] [address] [place] Protein [Mass/Vol] 6.8 g/dL Normal 6.3-8.0 [facility] Comment on above: Order Comment: Speci men Type: BLOOD SPECIMEN Ordering Facility: [facility] Address: [address] [place] [address] Performed By: #### 2 4323-8 #### [facility] CLIA [id number] [address] [place] [address] [place] Sodium [Moles/Vol] 137 mmol/L Normal 136-144 [facility] Comment on above: Order Comment: Speci men Type: BLOOD SPECIMEN Ordering Facility: [facility] Address: [address] [place] [address] Performed By: #### 2 4323-8 #### [facility] CLIA [id number] [address] [place] [address] [place] Urea nitrogen [Mass/Vol] 12 mg/dL Normal 7-[address] [facility] Comment on above: Order Comment: Speci men Type: BLOOD SPECIMEN Ordering Facility: [facility] Address: [address] [place] [address] Performed By: #### 2 4323-8 #### [facility] CLIA [id number] [address] [place], [place] [address] [place] IMMUNOGLOBULIN Colt 5 IgG [Mass/Vol] 1066 mg/dL 700 - 1600 mg/dL [facility] IMMUNOGLOBULIN Mon 5 IgM [Mass/Vol] 71 mg/dL 40 - 230 mg/dL [facility] IgG SerPl-mCncon 04-06-2025 IgG [Mass/Vol] 1066 mg/dL Normal 700-[address] [facility] Comment on above: Order Comment: Speci men Type: BLOOD SPECIMEN Ordering Facility: [facility] Address: [address] [place], [place] [id number] Performed By: #### 2 4323-8 #### [facility] CLIA [id number] [address] [place] [address] [place] IgM SerPl-mCncon 04-06-2025 IgM [Mass/Vol] 71 mg/dL Normal 40-[address] [facility] Comment on above: Order Comment: Speci men Type: BLOOD SPECIMEN Ordering Facility: [facility] Address: [address] [place], [place] [id number] Performed By: #### 2 4323-8 #### [facility] CLIA [id number] [address] [place] [address] [place] No Panel Informationon 04-06 Interpretation and review of laboratory results Normal [facility] VITAMIN D 25 HYDROXYon 04-06 25-hydroxyvitamin D3 [Mass/Vol] 63.7 ng/mL 31.0 - 80.0 ng/mL [facility] Comment on above: Classification of 25 [place] Vitamin D status: Deficiency/Insufficiency: < or = 30 ng/ml. Sufficiency/Optimal Levels: 31-80 ng/mL Toxicity: > 100 ng/mL. Test performed by chemiluminescent immunoassay. Yang 02-07-2025 [facility] Telephone (INTMWS) ISAC PERES ([id number]) 1990 F Date Time Provider Department 02/07/25 ANNIE JUSTIN INTMWS During your visit today, we recorded the following information about you: Rosanne Messina LPN 02/07/2025 10:28 AM Signed Electronic PA rec'd for amphetamine dextroamphetamine 30mg cap. Called the pharmacy to see if this really needs a PA. They report the rx from 12/02/24 was filled generic with no issues. The rx for 01/01/25 was not filled. They tried to run the rx dated 02/01/25 and the generic is still coming up PA needed. Rosanne Messina LPN 02/07/2025 3:30 PM Signed Unable to complete PA electronically Completed on covermymeds. Approved. Pharmacy notified. Pt notified via my chart. ISAC PERES (Hung: [id number]) PA Rx #: [id number] Need Help? Call us at Outcome Approved today by [employer] [facility] 2017 Your PA request has been approved. Additional information will be provided in the approval communication. (Message 114) Effective Date: 02/07/2025 Authorization Expiration Date: 02/07/2026 Drug Amphetamine-Dextroamph et ER 30MG er capsules Form [employer] Electronic PA Form (2016 [facility]) Original Claim Info 75 Allergies As of Date: 02/07/2025 (No Known Allergies) Date Reviewed: 12/02/2024 Reviewed by: Eva Baig LPN - Fully Assessed Reason for Visit: Insurance Authorization [[id number]] Prescriptions as of 02/07/2025 - amantadine HCl (SYMMETREL) 100 mg capsule Take 1 capsule by mouth twice daily - ubrogepant (UBRELVY) 50 mg tablet Take 1 tablet by mouth as needed (Migraine Headache). - amphetamine-dextroamph etamine XR (ADDERALL XR) 30 mg capsule Take 1 capsule by mouth once daily for 30 days. - amphetamine-dextroamph etamine XR (ADDERALL XR) 30 mg capsule Take 1 capsule by mouth once daily for 30 days. Patient should start on January 01, 2025. - amphetamine-dextroamph etamine XR (ADDERALL XR) 30 mg capsule Take 1 capsule by mouth once daily for 30 days. Patient should start on January 31, 2025. - baclofen 10 mg tablet Take 1 tablet by mouth in the evening and 3 tablet at bedtime - gabapentin (NEURONTIN) 300 mg capsule TAKE 2 CAPSULES BY MOUTH THREE TIMES DAILY. MAY TAKE ADDITIONAL 300 MG NEEDED FOR PAIN. - SUMAtriptan (IMITREX) 100 mg tablet Take 1 tablet (100 mg) by mouth as needed for migraine headache (see administration instructions). START AT ONSET OF HEADACHE. MAY REPEAT DOSE AFTER 2 HOURS. - Cholecalciferol, Vitamin D3, 125 mcg (5,000 unit) cap Take 1 capsule by mouth once daily. - albuterol HFA (PROVENTIL HFA, VENTOLIN HFA) 90 mcg/actuation inhaler Inhale 2 Puffs as instructed every 4 hours as needed for wheezing/shortness of breath. - ocrelizumab (OCREVUS INTRAVENOUS) Inject intravenously once every 6 months. Meds Comments as of 03/18/2018: Problem List As Of Date 02/07/2025 Noted Resolved Dysmenorrhea [N94.6] 11/04/2006 04/15/2011 Supervision of normal first [Z34.00] 08/21/2009 03/28/2011 Cholelithiasis NOS [K80.20] 10/08/2009 03/28/2011 Previous section [Z98.891] 02/26/2011 04/15/2011 Pain in joint, shoulder region [M25.519] 08/12/2012 05/12/2024 Obesity, Class III, BMI 40-49.9 (morbid obesity*01/19/2018 05/12/2024 SHABNAM (generalized anxiety disorder) [F41.1] 11/29/2020 05/12/2024 Rheumatoid arthritis (HCC) [M06.9] 11/29/2020 05/12/2024 Adult ADHD [F90.9] 12/24/2020 Multiple sclerosis (HCC) [G35] 09/05/2022 Encounter Status:Closed by RSOANNE MESSINA on 02/07/25 [facility] CNOVon 12-02-2024 CNOV Office Visit (FAMPWS ) ISAC PERES ([id number]) 1990 F Date Time Provider Department 12/02/24 8:20 AM [facility] During your visit today, we recorded the following information about you: Pulse Respiration Blood pressure Weight 93/minute 16/minute 122/74 100.7 kg Last Period 11/08/24 Chiara Pedersen APRN.DIRECTOR DIVERSITY 12/02/2024 10:41 AM Signed This is a 34 year old female who presents today with: Patient presents with: 6 Month Exam HISTORY OF PRESENT ILLNESS: Isac Peres is a 34 year old female. Patient presents with: 6 Month Exam 6 month follow up ADHD: Taking Adderall XR 30 mg daily. Medication working well for focus and concentration. Due for tox screen History of MS: Following with neurology. Taking Baclofen 10 mg QHS, Vitamin D3 5000 IUs daily, and Gabapentin 300 mg TID. Getting Ocrevus injections every 6 months. Going to Therapy through MS clinic, increased irritability. MS can affect mood. No SI/HI. GI: Eleavted alk phos, had/isoenzyme completed, elevated liver fraction. Has had an RUQ US completed in May which was unremarkable. Needs to schedule follow-up with GI. Creatinine mildly elevated, has been monitoring through labs. Headaches: Migraines during menses week. Will get photophobia and phonophobia. Using Imitrex as need but causes drowsiness. Vaccines: Due for Dtap, denies wanting at this time. PAST MEDICAL HISTORY: PAST MEDICAL HISTORY Diagnosis Date Adjustment disorder with depressed mood Dysmenorrhea Encounter for insertion or removal of intrauterine contraceptive device 06/12/2011 Multiple sclerosis (HCC) Unspecified asthma(493.90) SPORTS INDUCED, NO PROBLEMS SINCE AGE 16 PAST SURGICAL HISTORY Procedure Laterality Date DELIVERY ONLY 11/11/2009 DELIVERY ONLY 03/31/11 , low transverse ESOPHAGOGASTRODUODENOS COPY TRANSORAL DIAGNOSTIC 02/18/2018 EGD HYSTEROSCOPY 06/10/2016 in office to remove IUD INSERTION OF IUD 06/2011, 06/10/2016 LAPS SURG CHOLECYSTECTOMY W/CHOLANGIOGRAPHY 01/25/10 Normal IOC PAST SURGICAL HISTORY OF DIAGNOSTIC LAPAROSCOPY UNSPECIFIED ORAL SURGERY PROCEDURE, BY REPORT wisdom teeth removed ALLERGIES Patient has no known allergies. MEDICATIONS Current Outpatient Medications Medication Sig baclofen 10 mg tablet Take 1 tablet by mouth in the evening and 3 tablet at bedtime gabapentin (NEURONTIN) 300 mg capsule TAKE 2 CAPSULES BY MOUTH THREE TIMES DAILY. MAY TAKE ADDITIONAL 300 MG NEEDED FOR PAIN. (Patient not taking: Reported on 10/17/2024) amphetamine-dextroamph etamine XR (ADDERALL XR) 30 mg capsule Take 1 capsule by mouth once daily for 30 days. amphetamine-dextroamph etamine XR (ADDERALL XR) 30 mg capsule Take 1 capsule by mouth once daily for 30 days. Patient should start on June 16, 2024. amphetamine-dextroamph etamine XR (ADDERALL XR) 30 mg capsule Take 1 capsule by mouth once daily for 30 days. Patient should start on July 16, 2024. SUMAtriptan (IMITREX) 100 mg tablet Take 1 tablet (100 mg) by mouth as needed for migraine headache (see administration instructions). START AT ONSET OF HEADACHE. MAY REPEAT DOSE AFTER 2 HOURS. topiramate (TOPAMAX) 50 mg tablet TAKE 1 AND 1/2 (ONE AND ONE-HALF) TABLETS BY MOUTH ONCE DAILY AT BEDTIME amantadine HCl (SYMMETREL) 100 mg capsule Take 1 capsule by mouth twice daily DULoxetine (CYMBALTA) 60 mg capsule Take 1 capsule by mouth once daily amphetamine-dextroamph etamine XR (ADDERALL XR) 30 mg capsule Take 1 capsule by mouth once daily for 30 days. Do not start before January 07, 2024. amphetamine-dextroamph etamine XR (ADDERALL XR) 30 mg capsule Take 1 capsule by mouth once daily for 30 days. Do not start before February 06, 2024. amphetamine-dextroamph etamine XR (ADDERALL XR) 30 mg capsule Take 1 capsule by mouth once daily for 30 days. dextroamphetamine-amph etamine (ADDERALL) 10 mg tablet Take 1 tablet by mouth once daily for 30 days. Cholecalciferol, Vitamin D3, 125 mcg (5,000 unit) cap Take 1 capsule by mouth once daily. albuterol HFA (PROVENTIL HFA, VENTOLIN HFA) 90 mcg/actuation inhaler Inhale 2 Puffs as instructed every 4 hours as needed for wheezing/shortness of breath. ocrelizumab (OCREVUS INTRAVENOUS) Inject intravenously once every 6 months. No current facility-administered medications for this visit. FAMILY HISTORY Problem Relation Age of Onset other (endometrial cancer) Mother Lipids Father Arthritis Maternal Grandmother Asthma Maternal Grandmother Cancer Maternal Grandmother SKIN CANCER Heart Maternal Grandmother Rheumatologic disease Maternal Grandmother Fibromyalgia Cancer Maternal Grandfather Multiple Sclerosis Paternal cousin Social History Tobacco Use Smoking status: Never Smokeless tobacco: Never Vaping Use Vaping status: Never Used Substance Use Topics Alcohol use: No Comment: 1/mo (more content not included)... Normal [facility] CNOVon 10-17-2024 CNOV Office Visit (UCWSTR ) ISAC PERES ([id number]) 1990 F Date Time Provider Department 10/17/24 3:00 PM JORDAN BAJWA [facility] During your visit today, we recorded the following information about you: Temperature Pulse Respiration Blood pressure 98.8 degrees 84/minute 16/minute 112/68 Weight 101 kg Jordan Bajwa APRN.DIRECTOR DIVERSITY 10/17/2024 3:22 PM Signed CC: Patient presents with: Chest Congestion: cough, fatigue, headache and sore throat x 4 days HPI: Isac Peres is a 34 year old female who presents to the office with complaint of chest congestion, cough, nonproductive, and sore throat for a few days. Symptoms are worsening Associated symptoms includes sore throat and dyspnea. Denies nausea, vomiting , and diarrhea. Treatments tried include nothing so far. with no relief of symptoms. Sick contacts: unknown. History of asthma, frequent episodes of bronchitis, chronic bronchitis, bronchiectasis or COPD: asthma as a kid Smoker: No Seasonal/environmental allergies: No The ROS is otherwise negative. The patient's pmh, medications, allergies, and past visits are reviewed. PHYSICAL EXAM: BP 112/68 Pulse 84 Temp 37.1 ?C (98.8 ?F) Resp 16 Wt 101 kg (222 lb 10.6 oz) LMP 05/22/2024 (Exact Date) SpO2 98% BMI 39.44 kg/m? General appearance: alert, cooperative, pleasant, in no acute distress Head: Normocephalic Eyes: EOM's intact, conjunctiva pink and moist, no icterus, sclera white, non-injected Ears: Right ear: External ear/canal- Normal, TM - clear with good landmarks. Left ear: External ear/canal- Normal, TM - clear with good landmarks Oropharynx:mild erythema, without exudates present, Neck: mild cervical adenopathy Heart: Negative. RRR without obvious murmur, gallop, or rubs. No ectopy. Lungs: clear to auscultation, without rales or wheeze, good air exchange PAST MEDICAL HISTORY Diagnosis Date Adjustment disorder with depressed mood Dysmenorrhea Encounter for insertion or removal of intrauterine contraceptive device 06/12/2011 Multiple sclerosis (HCC) Unspecified asthma(493.90) SPORTS INDUCED, NO PROBLEMS SINCE AGE 16 PAST SURGICAL HISTORY Procedure Laterality Date DELIVERY ONLY 11/11/2009 DELIVERY ONLY 03/31/11 , low transverse ESOPHAGOGASTRODUODENOS COPY TRANSORAL DIAGNOSTIC 02/18/2018 EGD HYSTEROSCOPY 06/10/2016 in office to remove IUD INSERTION OF IUD 06/2011, 06/10/2016 LAPS SURG CHOLECYSTECTOMY W/CHOLANGIOGRAPHY 01/25/10 Normal IOC PAST SURGICAL HISTORY OF DIAGNOSTIC LAPAROSCOPY UNSPECIFIED ORAL SURGERY PROCEDURE, BY REPORT wisdom teeth removed ALLERGIES Patient has no known allergies. MEDICATIONS baclofen 10 mg tablet Take 1 tablet by mouth in the evening and 3 tablet at bedtime amphetamine-dextroamph etamine XR (ADDERALL XR) 30 mg capsule Take 1 capsule by mouth once daily for 30 days. Patient should start on July 16, 2024. SUMAtriptan (IMITREX) 100 mg tablet Take 1 tablet (100 mg) by mouth as needed for migraine headache (see administration instructions). START AT ONSET OF HEADACHE. MAY REPEAT DOSE AFTER 2 HOURS. topiramate (TOPAMAX) 50 mg tablet TAKE 1 AND 1/2 (ONE AND ONE-HALF) TABLETS BY MOUTH ONCE DAILY AT BEDTIME amantadine HCl (SYMMETREL) 100 mg capsule Take 1 capsule by mouth twice daily DULoxetine (CYMBALTA) 60 mg capsule Take 1 capsule by mouth once daily Cholecalciferol, Vitamin D3, 125 mcg (5,000 unit) cap Take 1 capsule by mouth once daily. albuterol HFA (PROVENTIL HFA, VENTOLIN HFA) 90 mcg/actuation inhaler Inhale 2 Puffs as instructed every 4 hours as needed for wheezing/shortness of breath. ocrelizumab (OCREVUS INTRAVENOUS) Inject intravenously once every 6 months. gabapentin (NEURONTIN) 300 mg capsule TAKE 2 CAPSULES BY MOUTH THREE TIMES DAILY. MAY TAKE ADDITIONAL 300 MG NEEDED FOR PAIN. (Patient not taking: Reported on 10/17/2024) amphetamine-dextroamph etamine XR (ADDERALL XR) 30 mg capsule Take 1 capsule by mouth once daily for 30 days. amphetamine-dextroamph etamine XR (ADDERALL XR) 30 mg capsule Take 1 capsule by mouth once daily for 30 days. Patient should start on June 16, 2024. amphetamine-dextroamph etamine XR (ADDERALL XR) 30 mg capsule Take 1 capsule by mouth once daily for 30 days. Do not start before January 07, 2024. amphetamine-dextroamph etamine XR (ADDERALL XR) 30 mg capsule Take 1 capsule by mouth once daily for 30 days. Do not start before February 06, 2024. amphetamine-dextroamph etamine XR (ADDERALL XR) 30 mg capsule Take 1 capsule by mouth once daily for 30 days. dextroamphetamine-amph etamine (ADDERALL) 10 mg tablet Take 1 tablet by mouth once daily for 30 days. FAMILY HISTORY Problem Relation Age of Onset other (endometrial cancer) Mother Lipids Father Arthritis Maternal Grandmother Asthma Maternal Grandmother Cancer Maternal Grandmother SKIN CANCER (more content not included)... Normal [facility] STREP A MOLECULAR (POC)on Procedural Control Valid [facility] Strep A (POCT) Negative Negative [facility] XR CHEST 2V FRONTAL/LATon XR CHEST 2V FRONTAL/LAT * * *Final Report* * * DATE OF EXAM: Oct 17 2024 3:16PM WOX [id number] - XR CHEST 2V FRONTAL/LAT / PROCEDURE REASON: Acute cough * * * * Physician Interpretation * * * * EXAMINATION: CHEST RADIOGRAPH (2 VIEW FRONTAL and LATERAL) CLINICAL HISTORY: Acute cough MQ: XC2_6 EXAM DATE/TIME: 10/17/2024 3:16 PM COMPARISON: 09/17/2023 RESULT: Lines, tubes, and devices: None. Lungs and pleura: No consolidation. No lung mass. No pleural effusion. No pneumothorax. Cardiomediastinal silhouette: Normal cardiomediastinal silhouette. Bones and soft tissues: Unremarkable. IMPRESSION: No acute radiographic abnormality. Machinist Set Up: FABRICE Transcribe Date/Time: Oct 17 2024 3:17P Dictated by : AYDEE CAMERON MD This examination was interpreted and the report reviewed and electronically signed by: AYDEE CAMERON MD on Oct 17 2024 3:17PM EST [id number] Normal [facility] XR Chest PA and Lateralon Radiology Study observation (narrative) [facility] IMPRESSION: No acute radiographic abnormality. Machinist Set Up: FABRICE Transcribe Date/Time: Oct 17 2024 3:17P Dictated by : AYDEE CAMERON MD This examination was interpreted and the report reviewed and electronically signed by: AYDEE CAMERON MD on Oct 17 2024 3:17PM EST DIVISION OF RADIOLOGY * * *Final Report* * * DATE OF EXAM: Oct 17 2024 3:16PM WOX [id number] - XR CHEST 2V FRONTAL/LAT / PROCEDURE REASON: Acute cough * * * * Physician Interpretation * * * * EXAMINATION: CHEST RADIOGRAPH (2 VIEW FRONTAL & LATERAL) CLINICAL HISTORY: Acute cough MQ: XC2_6 EXAM DATE/TIME: 10/17/2024 3:16 PM COMPARISON: 09/17/2023 RESULT: Lines, tubes, and devices: None. Lungs and pleura: No consolidation. No lung mass. No pleural effusion. No pneumothorax. Cardiomediastinal silhouette: Normal cardiomediastinal silhouette. Bones and soft tissues: Unremarkable. DIVISION OF RADIOLOGY Provider, [facility] - 10/17/2024 * * *Final Report* * * DATE OF EXAM: Oct 17 2024 3:16PM WOX [id number] - XR CHEST 2V FRONTAL/LAT / PROCEDURE REASON: Acute cough * * * * Physician Interpretation * * * * EXAMINATION: CHEST RADIOGRAPH (2 VIEW FRONTAL & LATERAL) CLINICAL HISTORY: Acute cough MQ: XC2_6 EXAM DATE/TIME: 10/17/2024 3:16 PM COMPARISON: 09/17/2023 RESULT: Lines, tubes, and devices: None. Lungs and pleura: No consolidation. No lung mass. No pleural effusion. No pneumothorax. Cardiomediastinal silhouette: Normal cardiomediastinal silhouette. Bones and soft tissues: Unremarkable. IMPRESSION IMPRESSION: No acute radiographic abnormality. Machinist Set Up: FABRICE Transcribe Date/Time: Oct 17 2024 3:17P Dictated by : AYDEE CAMERON MD This examination was interpreted and the report reviewed and electronically signed by: AYDEE CAMERON MD on Oct 17 2024 3:17PM EST [facility] XR Chest PA and LateralOrder ed By: [facility] Provider on 10-17-2024 [facility] BRAIN & CERVICAL SPINE MRI D ISCRETE DATAon 10-06-2024 Brain Enhancing Lesions Not applicable [facility] Brain Interval Improvement None [facility] Brain New T2 Lesions None Site [facility] Brain Other Significant MRI Findings None. [facility] Brain Parenchymal Volume Loss None [facility] Brain T2 [place] of Disease Mild [facility] Radiology Study observation (narrative) [facility] CBC W Auto Differential pane l (Bld)on 10-06-2024 Basophils (Bld) [#/Vol] 0.05 10*3/uL NINF [facility] Basophils/100 WBC (Bld) 0.7 % [facility] Differential cell count method Nom (Bld) Auto [facility] Eosinophils (Bld) [#/Vol] 0.17 10*3/uL [facility] Eosinophils/100 WBC (Bld) 2.4 % [facility] Erythrocyte distribution width (RBC) [Ratio] 12.8 % 11.5 - 15.0 % [facility] Hematocrit (Bld) [Volume fraction] 43.1 % 36.0 - 46.0 % [facility] Hemoglobin (Bld) [Mass/Vol] 14.4 g/dL 11.5 - 15.5 g/dL [facility] Immature granulocytes (Bld) [#/Vol] [facility] Immature granulocytes/100 WBC (Bld) 0.3 % [facility] Lymphocytes (Bld) [#/Vol] 1.80 10*3/uL [facility] Lymphocytes/100 WBC (Bld) 25.8 % [facility] MCH (RBC) [Entitic mass] 30.7 pg 26.0 - 34.0 pg [facility] MCHC (RBC) [Mass/Vol] 33.4 g/dL 30.5 - 36.0 g/dL [facility] MCV (RBC) [Entitic vol] 91.9 fL 80.0 - 100.0 fL [facility] Monocytes (Bld) [#/Vol] 0.61 10*3/uL [facility] Monocytes/100 WBC (Bld) 8.7 % [facility] Neutrophils (Bld) [#/Vol] 4.33 10*3/uL [facility] Neutrophils/100 WBC (Bld) 62.1 % [facility] Nucleated RBC (Bld) [#/Vol] [facility] Nucleated RBC/100 WBC (Bld) [Ratio] 0.0 % /100 WBC [facility] Platelet mean volume (Bld) [Entitic vol] 9.6 fL 9.0 - 12.7 fL [facility] Platelets (Bld) [#/Vol] 356 10*3/uL [facility] RBC (Bld) [#/Vol] 4.69 10*6/uL 3.90 - 5.2 0 m/uL [facility] WBC (Bld) [#/Vol] 6.98 10*3/uL [facility] Basophils (Bld) [#/Vol] 0.05 10*3/uL Normal <0.[address] [facility] Comment on above: Order Comment: Speci men Type: BLOOD SPECIMEN Ordering Facility: [facility] Address: [address] [place] [address] Performed By: #### 2 4323-8 #### [facility] CLIA [id number] [address] [place] [address] [place] Basophils/100 WBC (Bld) 0.7 % Normal [facility] Comment on above: Order Comment: Speci men Type: BLOOD SPECIMEN Ordering Facility: [facility] Address: [address] [place] [address] Performed By: #### 2 4323-8 #### [facility] CLIA [id number] [address] [place] [address] [place] Differential cell count method Nom (Bld) Auto Normal [facility] Comment on above: Order Comment: Speci men Type: BLOOD SPECIMEN Ordering Facility: [facility] Address: [address] [place] [address] Performed By: #### 2 4323-8 #### [facility] CLIA [id number] [address] [place] [address] [place] Eosinophils (Bld) [#/Vol] 0.17 10*3/uL Normal <0.[address] [facility] Comment on above: Order Comment: Speci men Type: BLOOD SPECIMEN Ordering Facility: [facility] Address: [address] [place] [address] Performed By: #### 2 4323-8 #### [facility] CLIA [id number] [address] [place] [address] [place] Eosinophils/100 WBC (Bld) 2.4 % Normal [facility] Comment on above: Order Comment: Speci men Type: BLOOD SPECIMEN Ordering Facility: [facility] Address: [address] [place] [address] Performed By: #### 2 4323-8 #### [facility] CLIA [id number] [address] [place] [address] [place] Erythrocyte distribution width (RBC) [Ratio] 12.8 % Normal 11.5-15.[address] [facility] Comment on above: Order Comment: Speci men Type: BLOOD SPECIMEN Ordering Facility: [facility] Address: [address] [place] [address] Performed By: #### 2 4323-8 #### [facility] CLIA [id number] [address] [place] [address] [place] Hematocrit (Bld) [Volume fraction] 43.1 % Normal 36.0-46.[address] [facility] Comment on above: Order Comment: Speci men Type: BLOOD SPECIMEN Ordering Facility: [facility] Address: [address] [place] [address] Performed By: #### 2 4323-8 #### [facility] CLIA [id number] [address] [place] [address] [place] Hemoglobin (Bld) [Mass/Vol] 14.4 g/dL Normal 11.5-15.[address] [facility] Comment on above: Order Comment: Speci men Type: BLOOD SPECIMEN Ordering Facility: [facility] Address: [address] [place] [address] Performed By: #### 2 4323-8 #### [facility] CLIA [id number] [address] [place] [address] [place] Immature granulocytes (Bld) [#/Vol] 10*3/uL Normal <0.[address] [facility] Comment on above: Order Comment: Speci men Type: BLOOD SPECIMEN Ordering Facility: [facility] Address: [address] [place] [address] Performed By: #### 2 4323-8 #### [facility] CLIA [id number] [address] [place] [address] [place] Immature granulocytes/100 WBC (Bld) 0.3 % Normal [facility] Comment on above: Order Comment: Speci men Type: BLOOD SPECIMEN Ordering Facility: [facility] Address: [address] [place] [address] Performed By: #### 2 4323-8 #### [facility] CLIA [id number] [address] [place] [address] [place] Lymphocytes (Bld) [#/Vol] 1.80 10*3/uL Normal 1.00-4.[address] [facility] Comment on above: Order Comment: Speci men Type: BLOOD SPECIMEN Ordering Facility: [facility] Address: [address] [place] [address] Performed By: #### 2 4323-8 #### [facility] CLIA [id number] [address] [place] [address] [place] Lymphocytes/100 WBC (Bld) 25.8 % Normal [facility] Comment on above: Order Comment: Speci men Type: BLOOD SPECIMEN Ordering Facility: [facility] Address: [address] [place] [address] Performed By: #### 2 4323-8 #### [facility] CLIA [id number] [address] [place] [address] [place] MCH (RBC) [Entitic mass] 30.7 pg Normal 26.0-34.[address] [facility] Comment on above: Order Comment: Speci men Type: BLOOD SPECIMEN Ordering Facility: [facility] Address: [address] [place] [address] Performed By: #### 2 4323-8 #### [facility] CLIA [id number] [address] [place] [address] [place] MCHC (RBC) [Mass/Vol] 33.4 g/dL Normal 30.5-36.0 [facility] Comment on above: Order Comment: Speci men Type: BLOOD SPECIMEN Ordering Facility: [facility] Address: [address] [place] [address] Performed By: #### 2 4323-8 #### [facility] CLIA [id number] [address] [place] [address] [place] MCV (RBC) [Entitic vol] 91.9 fL Normal 80.0-100.[address] [facility] Comment on above: Order Comment: Speci men Type: BLOOD SPECIMEN Ordering Facility: [facility] Address: [address] [place] [address] Performed By: #### 2 4323-8 #### [facility] CLIA [id number] [address] [place] [address] [place] Monocytes (Bld) [#/Vol] 0.61 10*3/uL Normal <0.[address] [facility] Comment on above: Order Comment: Speci men Type: BLOOD SPECIMEN Ordering Facility: [facility] Address: [address] [place] [address] Performed By: #### 2 4323-8 #### [facility] CLIA [id number] [address] [place] [address] [place] Monocytes/100 WBC (Bld) 8.7 % Normal [facility] Comment on above: Order Comment: Speci men Type: BLOOD SPECIMEN Ordering Facility: [facility] Address: [address] [place] [address] Performed By: #### 2 4323-8 #### [facility] CLIA [id number] [address] [place] [address] [place] Neutrophils (Bld) [#/Vol] 4.33 10*3/uL Normal 1.45-7.[address] [facility] Comment on above: Order Comment: Speci men Type: BLOOD SPECIMEN Ordering Facility: [facility] Address: [address] [place] [address] Performed By: #### 2 4323-8 #### [facility] CLIA [id number] [address] [place] [address] [place] Neutrophils/100 WBC (Bld) 62.1 % Normal [facility] Comment on above: Order Comment: Speci men Type: BLOOD SPECIMEN Ordering Facility: [facility] Address: [address] [place] [address] Performed By: #### 2 4323-8 #### [facility] CLIA [id number] [address] [place] [address] [place] Nucleated RBC (Bld) [#/Vol] 10*3/uL Normal <0.[address] [facility] Comment on above: Order Comment: Speci men Type: BLOOD SPECIMEN Ordering Facility: [facility] Address: [address] [place] [address] Performed By: #### 2 4323-8 #### [facility] CLIA [id number] [address] [place] [address] [place] Nucleated RBC/100 WBC (Bld) [Ratio] 0.0 /100 WBC Normal [facility] Comment on above: Order Comment: Speci men Type: BLOOD SPECIMEN Ordering Facility: [facility] Address: [address] [place] [address] Performed By: #### 2 4323-8 #### [facility] CLIA [id number] [address] [place] [address] [place] Platelet mean volume (Bld) [Entitic vol] 9.6 fL Normal 9.0-12.[address] [facility] Comment on above: Order Comment: Speci men Type: BLOOD SPECIMEN Ordering Facility: [facility] Address: [address] [place] [address] Performed By: #### 2 4323-8 #### [facility] CLIA [id number] [address] [place] [address] [place] Platelets (Bld) [#/Vol] 356 10*3/uL Normal 150-[address] [facility] Comment on above: Order Comment: Speci men Type: BLOOD SPECIMEN Ordering Facility: [facility] Address: [address] [place] [address] Performed By: #### 2 4323-8 #### [facility] CLIA [id number] [address] [place] [address] [place] RBC (Bld) [#/Vol] 4.69 10*6/uL Normal 3.90-5.20 [facility] Comment on above: Order Comment: Speci men Type: BLOOD SPECIMEN Ordering Facility: [facility] Address: [address] [place] [address] Performed By: #### 2 4323-8 #### [facility] CLIA [id number] [address] [place] [address] [place] WBC (Bld) [#/Vol] 6.98 10*3/uL Normal 3.70-11.00 [facility] Comment on above: Order Comment: Speci men Type: BLOOD SPECIMEN Ordering Facility: [facility] Address: [address] [place] [address] Performed By: #### 2 4323-8 #### [facility] CLIA [id number] [address] [place] [address] [place] CD19 ABSOLUTE COUNTon 2024 CD3-CD19+ cells (Bld) [#/Vol] 0 cells/uL Low 75-[address] [facility] Comment on above: Order Comment: Speci men Type: BLOOD SPECIMEN Ordering Facility: [facility] Address: [address] [place] [address] Performed By: #### 2 4323-8 #### [facility] CLIA [id number] [address] [place] [address] [place] CD3-CD19+ cells/100 cells (Bld) 0 % Low 5-[address] [facility] Comment on above: Order Comment: Speci men Type: BLOOD SPECIMEN Ordering Facility: [facility] Address: [address] [place] [address] Performed By: #### 2 4323-8 #### [facility] CLIA [id number] [address] [place] [address] [place] Lymphocytes/100 WBC FC (Bld) Normal [facility] Comment on above: Order Comment: Speci men Type: BLOOD SPECIMEN Ordering Facility: [facility] Address: [address] [place] [address] Performed By: #### 2 4323-8 #### [facility] CLIA [id number] [address] [place] [address] [place] Comprehensive metabolic 2000 panelon 10-06-2024 Albumin [Mass/Vol] 4.0 g/dL 3.9 - 4.9 g/dL [facility] ALP [Catalytic activity/Vol] 151 U/L High 34 - 123 U/L [facility] ALT [Catalytic activity/Vol] 22 U/L 7 - 38 U/L [facility] Anion gap [Moles/Vol] 14 mmol/L 8 - 15 mmol/L [facility] AST [Catalytic activity/Vol] 19 U/L 13 - 35 U/L [facility] Comment on above: Results may be false ly increased due to interference from hemolysis. Suggest reorder as clinically indicated. Bilirubin [Mass/Vol] 0.3 mg/dL 0.2 - 1 .3 mg/dL [facility] Calcium [Mass/Vol] 9.2 mg/dL 8.5 - 10. 2 mg/dL [facility] Chloride [Moles/Vol] 107 mmol/L 98 - 10 7 mmol/L [facility] CO2 [Moles/Vol] 19 mmol/L Low 22 - 30 mmol/L [facility] Creatinine [Mass/Vol] 1.07 mg/dL High 0.58 - 0.96 mg/dL [facility] GFR/1.73 sq M.predicted among non-blacks MDRD (S/P/Bld) [Vol rate/Area] 69 mL/min/{1.73_m2} - PINF [facility] Comment on above: Estimated Glomerular Filtration Rate (eGFR) is calculated using the 2020 CKD-EPI creatinine equation. This equation utilizes serum creatinine, sex, and age as parameters. The creatinine assay has traceable calibration to isotope dilution-mass spectrometry. Refer to KDIGO guidelines for clinical interpretation. In patients with unstable renal function, e.g. those with acute kidney injury, the eGFR may not accurately reflect actual GFR. Glucose [Mass/Vol] 86 mg/dL 74 - 99 mg/dL [facility] Comment on above: The [place] Di[employer] Association (ADA) provides guidance for cutoff values for fasting glucose and random glucose. The ADA defines fasting as no caloric intake for at least 8 hours. Fasting plasma glucose results between 100 to 125 mg/dL indicate increased risk for diabetes (prediabetes). Fasting plasma glucose results greater than or equal to 126 mg/dL meet the criteria for diagnosis of diabetes. In the absence of unequivocal hyperglycemia, results should be confirmed by repeat testing. In a patient with classic symptoms of hyperglycemia or hyperglycemic crisis, random plasma glucose results greater than or equal to 200 mg/dL meet the criteria for diagnosis of diabetes. Reference: Standards of Medical Care in Diabetes 2016, [place] [employer]. Diabetes Care. 2016.39(Suppl 1). Interpretation and review of laboratory results Abnormal [facility] Potassium [Moles/Vol] 4.2 mmol/L 3.7 - 5.1 mmol/L [facility] Protein [Mass/Vol] 7.3 g/dL 6.3 - 8.0 g/dL [facility] Sodium [Moles/Vol] 140 mmol/L 136 - 144 mmol/L [facility] Urea nitrogen [Mass/Vol] 11 mg/dL 7 - 21 mg/dL [facility] Albumin [Mass/Vol] 4.0 g/dL Normal 3.9-4.9 [facility] Comment on above: Order Comment: Speci men Type: BLOOD SPECIMEN Ordering Facility: [facility] Address: [address] [place] [address] Performed By: #### 2 4323-8 #### [facility] CLIA [id number] [address] [place] [address] [place] ALP [Catalytic activity/Vol] 151 U/L High 34-[address] [facility] Comment on above: Order Comment: Speci men Type: BLOOD SPECIMEN Ordering Facility: [facility] Address: [address] [place] [address] Performed By: #### 2 4323-8 #### [facility] CLIA [id number] [address] [place], [place] [address] [place] ALT [Catalytic activity/Vol] 22 U/L Normal 7-[address] [facility] Comment on above: Order Comment: Speci men Type: BLOOD SPECIMEN Ordering Facility: [facility] Address: [address] [place] [address] Performed By: #### 2 4323-8 #### [facility] CLIA [id number] [address] [place] [address] [place] Anion gap [Moles/Vol] 14 mmol/L Normal 8-15 [facility] Comment on above: Order Comment: Speci men Type: BLOOD SPECIMEN Ordering Facility: [facility] Address: [address] [place] [address] Performed By: #### 2 4323-8 #### [facility] CLIA [id number] [address] [place] [address] [place] AST [Catalytic activity/Vol] 19 U/L Normal 13-[address] [facility] Comment on above: Order Comment: Speci men Type: BLOOD SPECIMEN Ordering Facility: [facility] Address: [address] [place] [address] Result Comment: Resu lts may be falsely increased due to interference from hemolysis. Suggest reorder as clinically indicated. Performed By: #### 2 4323-8 #### [facility] CLIA [id number] [address] [place] [address] [place] Bilirubin [Mass/Vol] 0.3 mg/dL Normal 0.2-1.3 [facility] Comment on above: Order Comment: Speci men Type: BLOOD SPECIMEN Ordering Facility: [facility] Address: [address] [place] [address] Performed By: #### 2 4323-8 #### [facility] CLIA [id number] [address] [id number] [address] [place] Calcium [Mass/Vol] 9.2 mg/dL Normal 8.5-10.2 [facility] Comment on above: Order Comment: Speci men Type: BLOOD SPECIMEN Ordering Facility: [facility] Address: [address] [place] [address] Performed By: #### 2 4323-8 #### [facility] CLIA [id number] [address] [place] [address] [place] Chloride [Moles/Vol] 107 mmol/L Normal 98-107 [facility] Comment on above: Order Comment: Speci men Type: BLOOD SPECIMEN Ordering Facility: [facility] Address: [address] [place] [address] Performed By: #### 2 4323-8 #### [facility] CLIA [id number] [address] [place] [address] [place] CO2 [Moles/Vol] 19 mmol/L Low 22-[address] [facility] Comment on above: Order Comment: Speci men Type: BLOOD SPECIMEN Ordering Facility: [facility] Address: [address] [place] [address] Performed By: #### 2 4323-8 #### [facility] CLIA [id number] [address] [place] [address] [place] Creatinine [Mass/Vol] 1.07 mg/dL High 0.58-0.96 [facility] Comment on above: Order Comment: Speci men Type: BLOOD SPECIMEN Ordering Facility: [facility] Address: [address] [place] [address] Performed By: #### 2 4323-8 #### [facility] CLIA [id number] [address] [place] [address] [place] Creatinine and Glomerular filtration rate.predicted panel (S/P/Bld) 69 mL/min/1.73m??? Normal >=[address] [facility] Comment on above: Order Comment: Speci men Type: BLOOD SPECIMEN Ordering Facility: [facility] Address: [address] [place] [address] Result Comment: Susy mated Glomerular Filtration Rate (eGFR) is calculated using the 2020 CKD-EPI creatinine equation. This equation utilizes serum creatinine, sex, and age as parameters. The creatinine assay has traceable calibration to isotope dilution-mass spectrometry. Refer to KDIGO guidelines for clinical interpretation. In patients with unstable renal function, e.g. those with acute kidney injury, the eGFR may not accurately reflect actual GFR. Performed By: #### 2 4323-8 #### [facility] CLIA [id number] [address] [place] [address] [place] Glucose [Mass/Vol] 86 mg/dL Normal 74-99 [facility] Comment on above: Order Comment: Savannah santana Type: BLOOD SPECIMEN Ordering Facility: [facility] Address: [address] [place] [address] Result Comment: The [place] Diabetes [employer] (ADA) provides guidance for cutoff values for fasting glucose and random glucose. The ADA defines fasting as no caloric intake for at least 8 hours. Fasting plasma glucose results between 100 to 125 mg/dL indicate increased risk for diabetes (prediabetes). Fasting plasma glucose results greater than or equal to 126 mg/dL meet the criteria for diagnosis of diabetes. In the absence of unequivocal hyperglycemia, results should be confirmed by repeat testing. In a patient with classic symptoms of hyperglycemia or hyperglycemic crisis, random plasma glucose results greater than or equal to 200 mg/dL meet the criteria for diagnosis of diabetes. Reference: Standards of Medical Care in Diabetes 2016, [place] [employer]. Diabetes Care. 2016.39(Suppl 1). Performed By: #### 2 4323-8 #### [facility] CLIA [id number] [address] [place] [address] [place] Potassium [Moles/Vol] 4.2 mmol/L Normal 3.7-5.1 [facility] Comment on above: Order Comment: [place] s[place]ana Type: BLOOD SPECIMEN Ordering Facility: [facility] Address: [address] [place] [address] Performed By: #### 2 4323-8 #### [facility] CLIA [id number] [address] [place] [address] [place] Protein [Mass/Vol] 7.3 g/dL Normal 6.3-8.0 [facility] Comment on above: Order Comment: Speci men Type: BLOOD SPECIMEN Ordering Facility: [facility] Address: [address] [place] [address] Performed By: #### 2 4323-8 #### [facility] CLIA [id number] [address] [place] [address] [place] Sodium [Moles/Vol] 140 mmol/L Normal 136-144 [facility] Comment on above: Order Comment: Speci men Type: BLOOD SPECIMEN Ordering Facility: [facility] Address: [address] [place] [address] Performed By: #### 2 4323-8 #### [facility] CLIA [id number] [address] [place] [address] [place] Urea nitrogen [Mass/Vol] 11 mg/dL Normal 7-[address] [facility] Comment on above: Order Comment: Speci men Type: BLOOD SPECIMEN Ordering Facility: [facility] Address: [address] [place] [address] Performed By: #### 2 4323-8 #### [facility] CLIA [id number] [address] [place] [address] [place] IgG SerPl-mCncon 10-06-2024 IgG [Mass/Vol] 1095 mg/dL Normal 700-[address] [facility] Comment on above: Order Comment: Speci men Type: BLOOD SPECIMENOrdering Facility: [facility] Address: [address] [place] [address] Performed By: #### 2 465-3, 2472-9 ####[facility] [id number] [place] [address] [place] IgM SerPl-mCncon 10-06-2024 IgM [Mass/Vol] 82 mg/dL Normal 40-[address] [facility] Comment on above: Order Comment: Speci men Type: BLOOD SPECIMENOrdering Facility: [facility] Address: [address] [facility] [place] [address] Performed By: #### 2 465-3, 2472-9 ####[facility] [id number] [address] [place] [address] [place] MR Brain WO contraston 10-06 IMPRESSION: Multiple intracranial white matter lesions compatible with multiple sclerosis. No new T2 lesions. No significant parenchymal volume loss. Other Significant Intracranial Findings: None Machinist Set Up: PSCB Transcribe Date/Time: Oct 06 2024 12:39P Dictated by : URSZULA LARIOS MD This examination was interpreted and the report reviewed and electronically signed by: URSZULA LARIOS MD on Oct 06 2024 12:47PM [facility] * * *Final Report* * * DATE OF EXAM: Oct 06 2024 12:37PM [facility] 0294 - MRI BRAIN WO IVCON / PROCEDURE REASON: Multiple sclerosis (HCC) * * * * Physician Interpretation * * * * EXAMINATION: MRI BRAIN WO IVCON HISTORY: Multiple sclerosis. Routine follow-up TECHNIQUE: Brain MRI with demyelinating disease protocol without IV gadolinium. MQ: [id number] Contrast: None COMPARISON: MRI brain 10/02/2023 and 02/27/2023. RESULT: MR BRAIN: Parenchymal Findings: There are multiple foci of hyperintensity on FLAIR and T2 within the white matter, compatible with the clinical diagnosis of multiple sclerosis. New T2 Lesions: None Site(s) of New/Larger T2 Lesion(s): Not applicable Interval Improvement: None. New Enhancing Lesions: Not applicable T2 [place] of Disease: Mild. Parenchymal Volume Loss: None. Other Significant Findings: None. *Note:? The definition of new T2 Lesions includes both new and enlarging plaques on T2-weighted FLAIR images (new lesions greater than or equal to 5mm3 or an increase in diameter of an existing lesion by greater than or equal to 2mm). DIVISION OF RADIOLOGY Provider, [facility] - 10/06/2024 * * *Final Report* * * DATE OF EXAM: Oct 06 2024 12:37PM [facility] 0294 - MRI BRAIN WO IVCON / PROCEDURE REASON: Multiple sclerosis (HCC) * * * * Physician Interpretation * * * * EXAMINATION: MRI BRAIN WO IVCON HISTORY: Multiple sclerosis. Routine follow-up TECHNIQUE: Brain MRI with demyelinating disease protocol without IV gadolinium. MQ: [id number] Contrast: None COMPARISON: MRI brain 10/02/2023 and 02/27/2023. RESULT: MR BRAIN: Parenchymal Findings: There are multiple foci of hyperintensity on FLAIR and T2 within the white matter, compatible with the clinical diagnosis of multiple sclerosis. New T2 Lesions: None Site(s) of New/Larger T2 Lesion(s): Not applicable Interval Improvement: None. New Enhancing Lesions: Not applicable T2 [place] of Disease: Mild. Parenchymal Volume Loss: None. Other Significant Findings: None. *Note:? The definition of new T2 Lesions includes both new and enlarging plaques on T2-weighted FLAIR images (new lesions greater than or equal to 5mm3 or an increase in diameter of an existing lesion by greater than or equal to 2mm). IMPRESSION IMPRESSION: Multiple intracranial white matter lesions compatible with multiple sclerosis. No new T2 lesions. No significant parenchymal volume loss. Other Significant Intracranial Findings: None Machinist Set Up: FABRICE Transcribe Date/Time: Oct 06 2024 12:39P Dictated by : URSZULA LARIOS MD This examination was interpreted and the report reviewed and electronically signed by: URSZULA LARIOS MD on Oct 06 2024 12:47PM [facility] Radiology Study observation (narrative) [facility] MR Brain WO contrastOrdered By: [facility] Provider on 10-06-2024 [facility] MRI BRAIN WO IVCONon 025 MRI BRAIN WO IVCON * * *Final Report* * * DATE OF EXAM: Oct 06 2024 12:37PM [facility] 0294 - MRI BRAIN WO IVCON / PROCEDURE REASON: Multiple sclerosis (HCC) * * * * Physician Interpretation * * * * EXAMINATION: MRI BRAIN WO IVCON HISTORY: Multiple sclerosis. Routine follow-up TECHNIQUE: Brain MRI with demyelinating disease protocol without IV gadolinium. MQ: [id number] Contrast: None COMPARISON: MRI brain 10/02/2023 and 02/27/2023. RESULT: MR BRAIN: Parenchymal Findings: There are multiple foci of hyperintensity on FLAIR and T2 within the white matter, compatible with the clinical diagnosis of multiple sclerosis. New T2 Lesions: None Site(s) of New/Larger T2 Lesion(s): Not applicable Interval Improvement: None. New Enhancing Lesions: Not applicable T2 [place] of Disease: Mild. Parenchymal Volume Loss: None. Other Significant Findings: None. *Note:? The definition of new T2 Lesions includes both new and enlarging plaques on T2-weighted FLAIR images (new lesions greater than or equal to 5mm3 or an increase in diameter of an existing lesion by greater than or equal to 2mm). IMPRESSION: Multiple intracranial white matter lesions compatible with multiple sclerosis. No new T2 lesions. No significant parenchymal volume loss. Other Significant Intracranial Findings: None Machinist Set Up: PSCB Transcribe Date/Time: Oct 06 2024 12:39P Dictated by : URSZULA LARIOS MD This examination was interpreted and the report reviewed and electronically signed by: URSZULA LARIOS MD on Oct 06 2024 12:47PM EST [id number] Normal [place] 10-03-2024 [facility] Telephone ([facility]) ISAC PERES ([id number]) 1990 F Date Time Provider Department 10/03/24 LANRE RENDON [facility] During your visit today, we recorded the following information about you: Lanre Rendon MD 10/03/2024 7:15 AM Signed Vaginal test was positive for yeast. Prescription for Monistat cream sent per visit provider note. Rupinder Cabrera MA 10/03/2024 7:33 AM Signed Left message for patient to return call. DENY Grace Stephanie, RN 10/03/2024 8:39 AM Signed Patient notified of results and provider's instructions. Patient verbalizes understanding. Francesca Guidry RN Allergies As of Date: 10/03/2024 (No Known Allergies) Date Reviewed: 10/02/2024 Reviewed by: Christal Chinchilla MA - Fully Assessed Reason for Visit: Results [95] Cmt: Annette+ Order(s):Miconazole Nitrate (MONISTAT 3) 200 mg/5 gram (4 %) creaUse 1 Applicator vaginally once daily for 3 days.Disp: 25 gRfl: 0 Prescriptions as of 10/03/2024 - Miconazole Nitrate (MONISTAT 3) 200 mg/5 gram (4 %) crea Use 1 Applicator vaginally once daily for 3 days. - nystatin (MYCOSTATIN) cream Apply to affected area two times a day for 14 days. - gabapentin (NEURONTIN) 300 mg capsule TAKE 2 CAPSULES BY MOUTH THREE TIMES DAILY. MAY TAKE ADDITIONAL 300 MG NEEDED FOR PAIN. - amphetamine-dextroamph etamine XR (ADDERALL XR) 30 mg capsule Take 1 capsule by mouth once daily for 30 days. - amphetamine-dextroamph etamine XR (ADDERALL XR) 30 mg capsule Take 1 capsule by mouth once daily for 30 days. Patient should start on June 16, 2024. - amphetamine-dextroamph etamine XR (ADDERALL XR) 30 mg capsule Take 1 capsule by mouth once daily for 30 days. Patient should start on July 16, 2024. - SUMAtriptan (IMITREX) 100 mg tablet Take 1 tablet (100 mg) by mouth as needed for migraine headache (see administration instructions). START AT ONSET OF HEADACHE. MAY REPEAT DOSE AFTER 2 HOURS. - baclofen 10 mg tablet Take 1 tablet by mouth in the evening and 2 tablet at bedtime - topiramate (TOPAMAX) 50 mg tablet TAKE 1 AND 1/2 (ONE AND ONE-HALF) TABLETS BY MOUTH ONCE DAILY AT BEDTIME - amantadine HCl (SYMMETREL) 100 mg capsule Take 1 capsule by mouth twice daily - DULoxetine (CYMBALTA) 60 mg capsule Take 1 capsule by mouth once daily - amphetamine-dextroamph etamine XR (ADDERALL XR) 30 mg capsule Take 1 capsule by mouth once daily for 30 days. Do not start before January 07, 2024. - amphetamine-dextroamph etamine XR (ADDERALL XR) 30 mg capsule Take 1 capsule by mouth once daily for 30 days. Do not start before February 06, 2024. - amphetamine-dextroamph etamine XR (ADDERALL XR) 30 mg capsule Take 1 capsule by mouth once daily for 30 days. - dextroamphetamine-amph etamine (ADDERALL) 10 mg tablet Take 1 tablet by mouth once daily for 30 days. - Cholecalciferol, Vitamin D3, 125 mcg (5,000 unit) cap Take 1 capsule by mouth once daily. - albuterol HFA (PROVENTIL HFA, VENTOLIN HFA) 90 mcg/actuation inhaler Inhale 2 Puffs as instructed every 4 hours as needed for wheezing/shortness of breath. - ocrelizumab (OCREVUS INTRAVENOUS) Inject intravenously once every 6 months. Meds Comments as of 03/18/2018: Problem List As Of Date 10/03/2024 Noted Resolved Dysmenorrhea [N94.6] 11/04/2006 04/15/2011 Supervision of normal first [Z34.00] 08/21/2009 03/28/2011 Cholelithiasis NOS [K80.20] 10/08/2009 03/28/2011 Previous section [Z98.891] 02/26/2011 04/15/2011 Pain in joint, shoulder region [M25.519] 08/12/2012 05/12/2024 Obesity, Class III, BMI 40-49.9 (morbid obesity*01/19/2018 05/12/2024 SHABNAM (generalized anxiety disorder) [F41.1] 11/29/2020 05/12/2024 Rheumatoid arthritis (HCC) [M06.9] 11/29/2020 05/12/2024 Adult ADHD [F90.9] 12/24/2020 Multiple sclerosis (HCC) [G35] 09/05/2022 Prescriptions ordered this encounter Disp Refills Start End MONISTAT 3 200 MG/5 GRAM (4 %) VAGIN* 25 g 0 10/03/2024 10/06/2024 Route: VAGINAL Sig: Use 1 Applicator vaginally once daily for 3 days. Encounter Status:Closed by FRANCESCA GUIDRY on 10/03/[address] [facility] BACTERIAL VAGINOSIS NAATon 1 12-03-2023 Lactobacillus crispatus+gasseri+laurel enii + Gardnerella vaginalis + Atopobium vaginae rRNA PEDRO+probe Ql (Vag fld) Not detected Normal Not detected [facility] Comment on above: Order Comment: Speci men Type: BLOOD SPECIMEN Ordering Facility: [facility] Address: [address] [place] [address] Performed By: #### 2 4323-8 #### [facility] CLIA [id number] [address] [place] [address] [place] Bacteria Ur Culton Bacteria identified Cx Nom (U) ORGANISM ID: 1 10,000 -<50,000 CFU/ml Normal urogenital jesu Normal [facility] Comment on above: Performed By: #### 6 30-4 ####[facility] [id number] [place] [address] [place] ANNETTE/TRICHOMONAS NAATon 1 12-03-2023 C. glabrata RNA PEDRO+probe Ql (Vag fld) Not detected Normal Not detected [facility] Comment on above: Order Comment: Speci men Type: BLOOD SPECIMEN Ordering Facility: [facility] Address: [address] [place] [address] Performed By: #### 2 4323-8 #### [facility] CLIA [id number] [address] [place] [address] [place] Annette sp DNA PEDRO+probe Ql (Vag fld) Detected Abnormal Not detected [facility] Comment on above: Order Comment: Speci men Type: BLOOD SPECIMEN Ordering Facility: [facility] Address: [address] [place] [address] Result Comment: The Annette species group target includes C. albicans, C. tropicalis, C. parapsilosis, and C. dubliniensis. Performed By: #### 2 4323-8 #### [facility] CLIA [id number] [address] [place] [address] [place] T. vaginalis DNA PEDRO+probe Ql (Unsp spec) Not detected Normal Not detected [facility] Comment on above: Order Comment: Speci men Type: BLOOD SPECIMEN Ordering Facility: [facility] Address: [address] [place] [address] Performed By: #### 2 4323-8 #### [facility] CLIA [id number] [address] [place] [address] [place] [id number] [place] [facility] CNOVon 10-02-2024 CNOV Office Visit (UCWSTR ) ISAC PERES ([id number]) 1990 F Date Time Provider Department 10/02/24 1:45 PM JORDAN BAJWA [facility] During your visit today, we recorded the following information about you: Temperature Pulse Blood pressure Weight 98 degrees 82/minute 119/83 101.7 kg Jordan Bajwa APRN.DIRECTOR DIVERSITY 10/02/2024 2:04 PM Signed CC: Patient presents with: UTI HPI Isac Peres is a 34 year old female who presents with complaint of possible UTI. These symptoms have been present for few days. Associated symptoms: abnormal vaginal discharge and vaginal itching Denies: fever, chills, sweats, abdominal pain, and flank pain Treatments: nothing The ROS was otherwise negative. PMH, Medications, labs, allergies, and recent past visits with PCP were reviewed and updated as able. PHYSICAL EXAM: BP 119/83 Pulse 82 Temp 36.7 ?C (98 ?F) (Left Tympanic) Resp (P) 16 Wt 101.7 kg (224 lb 3.3 oz) LMP 05/22/2024 (Exact Date) SpO2 96% BMI 39.72 kg/m? General: Well appearing and alert CV: Regular rate and rhythm without obvious murmur Lungs: clear to auscultation bilaterally Back: straight and symmetric Abdomen: mild tenderness over mid lowe abdoman PAST MEDICAL HISTORY Diagnosis Date Adjustment disorder with depressed mood Dysmenorrhea Encounter for insertion or removal of intrauterine contraceptive device 06/12/2011 Multiple sclerosis (HCC) Unspecified asthma(493.90) SPORTS INDUCED, NO PROBLEMS SINCE AGE 16 PAST SURGICAL HISTORY Procedure Laterality Date DELIVERY ONLY 11/11/2009 DELIVERY ONLY 03/31/11 , low transverse ESOPHAGOGASTRODUODENOS COPY TRANSORAL DIAGNOSTIC 02/18/2018 EGD HYSTEROSCOPY 06/10/2016 in office to remove IUD INSERTION OF IUD 06/2011, 06/10/2016 LAPS SURG CHOLECYSTECTOMY W/CHOLANGIOGRAPHY 01/25/10 Normal IOC PAST SURGICAL HISTORY OF DIAGNOSTIC LAPAROSCOPY UNSPECIFIED ORAL SURGERY PROCEDURE, BY REPORT wisdom teeth removed ALLERGIES Patient has no known allergies. MEDICATIONS gabapentin (NEURONTIN) 300 mg capsule TAKE 2 CAPSULES BY MOUTH THREE TIMES DAILY. MAY TAKE ADDITIONAL 300 MG NEEDED FOR PAIN. SUMAtriptan (IMITREX) 100 mg tablet Take 1 tablet (100 mg) by mouth as needed for migraine headache (see administration instructions). START AT ONSET OF HEADACHE. MAY REPEAT DOSE AFTER 2 HOURS. baclofen 10 mg tablet Take 1 tablet by mouth in the evening and 2 tablet at bedtime topiramate (TOPAMAX) 50 mg tablet TAKE 1 AND 1/2 (ONE AND ONE-HALF) TABLETS BY MOUTH ONCE DAILY AT BEDTIME amantadine HCl (SYMMETREL) 100 mg capsule Take 1 capsule by mouth twice daily DULoxetine (CYMBALTA) 60 mg capsule Take 1 capsule by mouth once daily Cholecalciferol, Vitamin D3, 125 mcg (5,000 unit) cap Take 1 capsule by mouth once daily. albuterol HFA (PROVENTIL HFA, VENTOLIN HFA) 90 mcg/actuation inhaler Inhale 2 Puffs as instructed every 4 hours as needed for wheezing/shortness of breath. ocrelizumab (OCREVUS INTRAVENOUS) Inject intravenously once every 6 months. amphetamine-dextroamph etamine XR (ADDERALL XR) 30 mg capsule Take 1 capsule by mouth once daily for 30 days. amphetamine-dextroamph etamine XR (ADDERALL XR) 30 mg capsule Take 1 capsule by mouth once daily for 30 days. Patient should start on June 16, 2024. amphetamine-dextroamph etamine XR (ADDERALL XR) 30 mg capsule Take 1 capsule by mouth once daily for 30 days. Patient should start on July 16, 2024. amphetamine-dextroamph etamine XR (ADDERALL XR) 30 mg capsule Take 1 capsule by mouth once daily for 30 days. Do not start before January 07, 2024. amphetamine-dextroamph etamine XR (ADDERALL XR) 30 mg capsule Take 1 capsule by mouth once daily for 30 days. Do not start before February 06, 2024. amphetamine-dextroamph etamine XR (ADDERALL XR) 30 mg capsule Take 1 capsule by mouth once daily for 30 days. dextroamphetamine-amph etamine (ADDERALL) 10 mg tablet Take 1 tablet by mouth once daily for 30 days. FAMILY HISTORY Problem Relation Age of Onset other (endometrial cancer) Mother Lipids Father Arthritis Maternal Grandmother Asthma Maternal Grandmother Cancer Maternal Grandmother SKIN CANCER Heart Maternal Grandmother Rheumatologic disease Maternal Grandmother Fibromyalgia Cancer Maternal Grandfather Multiple Sclerosis Paternal cousin Social History Tobacco Use Smoking status: Never Smokeless tobacco: Never Vaping Use Vaping status: Never Used Substance Use Topics Alcohol use: No Comment: 1/mo Drug use: No ASSESSMENT/PLAN: 1. Dysuria - ICD9: 788.1, ICD10: R30.0 (primary diagnosis) - UA DIP, URINE (POC) - URINE CULTURE 2. Vaginal itching - ICD9: 698.1, ICD10: N89.8 - BACTERIAL VAGINOSIS NAAT - ANNETTE/TRICHOMONAS NAAT - NYSTATIN 100,000 UNIT/GRAM TOPICAL CREAM - if positive for yeast can call in a stronger cream. Self swab no concer (more content not included)... Normal [facility] UA DIP, URINE (POC)on 2023 BILIRUBIN UA (POCT) Negative Negative [facility] CLARITY UA (POCT) Clear [facility] COLOR UA (POCT) Yellow [facility] GLUCOSE UA (POCT) Negative Negative mg/dL [facility] Hemoglobin Ql (U) Negative Negative [facility] KETONE UA (POCT) Negative Negative mg/dL [facility] LEUKOCYTES UA (POCT) Negative Negative [facility] NITRITE UA (POCT) Negative Negative [facility] PH UA (POCT) 7.0 4.5 - 8.0 [facility] Protein Ql (U) Negative Negative mg/dL [facility] SPECIFIC GRAVITY UA (POCT) 1.010 1.005 - 1.030 [facility] UROBILINOGEN UA (POCT) 0.2 Raisa l E.U./dL [facility] Location:[address], [place], [address] [facility] POINT OF CARE [facility] CNOVon 07-21-2024 CNOV Office Visit (DAVE ) ISAC PERES ([id number]) 1990 F Date Time Provider Department 07/21/24 7:30 AM DEION MEYER During your visit today, we recorded the following information about you: Deion Meyer R Ac 07/21/2024 5:17 PM Signed Isac Peres a 33 year old female presents to the acupuncture clinic on 07/21/24 for an initial consultation. Patient identity confirmed by name and : Yes Chief Complaint: Pain in whole body due to MS SUBJECTIVE Patient presents with pain in multiple body area. The symptoms from MS began 7-8 years ago. Some pain in the chest area and headache. The headache was severe and it took 3 years until. Numbness and tingling went later in the upper and lower limb. She still has tightness sensation in the chest. RA: family history Eating fish: from [employer] Nausea: associated her period Dizziness: associated flare up of the symptoms or getting recurrent migraine ; denying persistent dizziness: associated her nausea as well Sleep: trouble falling in sleep, does not stay consistently Appetite: nausea, does not want to eat Bowel movement: every 3 days (constipated) since high school Urination: frequent urination (de-sensitized type of sensation in the pelvic and lower abdominal region) [facility] [address] [facility] [address] Dept: [phone] Isac Peres : 1990 [place] [facility] Acupuncture Intake Form (For Patient Review Regarding Diagnostic Exam) I have received a diagnostic exam by physician or chiropractor within the last six months regarding the condition for which I am seeking treatment. 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 Date: 07/21/24 The patient's history is well detailed in the EMR. Current view: Showing all answers [facility] Mychart Additional Demo Question 07/19/2024 8:12 PM EDT - Filed by Patient Is this visit related to an accident, other than Workers' Compensation? No Is this visit related to Workers' Compensation? No Do you need an gasoline tractor operator? No Promis Cat V1.0 - Depression Question 07/19/2024 8:13 PM EDT - Filed by Patient I felt depressed Never I felt unhappy Rarely I felt sad Rarely I felt discouraged about the future Rarely PROMIS Depression T-Score (range: 10 - 90) 48 (within normal limits) [facility] Promis Cat V2.0-Physical Function-28 Days Question 07/19/2024 8:13 PM EDT - Filed by Patient 05/19/2024 1:49 PM EDT - Filed by Patient 04/19/2024 10:47 AM EDT - Filed by Patient PROMIS Physical Function T-Score (range: 10 - 90) 39 (moderate dysfunction) 40 (mild dysfunction) 41 (mild dysfunction) PROMIS Physical Function Percentile (range: 0 - 100) 14 16 18 [facility] Promis Cat V1.0 - Fatigue-28 Days Question 07/19/2024 8:13 PM EDT - Filed by Patient 05/19/2024 1:48 PM EDT - Filed by Patient PROMIS Fatigue T-Score (range: 10 - 90) 66 (moderate) 69 (moderate) PROMIS Fatigue Percentile (range: 0 - 100) 5 3 [facility] Promis Cat V1.0-Anxiety 28 Days Question 07/19/2024 8:14 PM EDT - Filed by Patient 05/19/2024 1:48 PM EDT - Filed by Patient PROMIS Anxiety T-Score (range: 10 - 90) 49 (within normal limits) 48 (within normal limits) PROMIS Anxiety Percentile (range: 0 - 100) 54 58 [facility] Neuro-Qol Cat V2.0 Cognitive Function-28 Days Question 07/19/2024 8:14 PM EDT - Filed by Patient 05/19/2024 1:50 PM EDT - Filed by Patient Neuro-QoL - Cognitive Function T-Score (range: 10 - 90) 34 (moderate dysfunction) 31 (moderate dysfunction) Neuro-QoL Cognitive Function Percentile (range: 0 - 100) 5 3 [facility] Promis Cat V1.0-Satisfaction With Social Roles-28 Days Question 07/19/2024 8:15 PM EDT - Filed by Patient 05/19/2024 1:44 PM EDT - Filed by Patient PROMIS - Satisfaction with Participation in Social Roles T-Score (range: 10 - 90) 34 (Low) 32 (Low) PROMIS Social Role Satisfaction Percentile (range: 0 - 100) 5 4 [facility] Promis Cat V1.1-Pain Interference-28 Days Question 07/19/2024 8:15 PM EDT - Filed by Patient 05/19/2024 1:43 PM EDT - Filed by Patient PROMIS Pain Interference T-Score (range: 10 - 90) (range: 10 - 90) 66 (moderate) 67 (moderate) PROMIS Pain Interference Percentile (range: 0 - 100) 5 4 [facility] Promis Cat V1.0-Sleep Disturbance-28 Days Question 07/19/2024 8:16 PM EDT - Filed by Patient 05/19/2024 1:47 PM EDT - Filed by Patient PROMIS Sleep Disturbance T-Score (range: 10 - 90) 58 (mild) 59 (mild) PROMIS Sleep Disturbance Percentile (range: 0 - 100) 21 18 [facility] [place] Acupuncture Intake Form Question 07/19/2024 8:28 PM EDT - Filed by Patient 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 No Are you currently being treated with chemotherapy? No Please check all that apply: None apply Primary Reason for Treat (more content not included)... Normal [facility] Mitochondria Ab IF Ql (S)Ord ered By: Mary Villalba on 06-23-2024 Interpretation and review of laboratory results Normal [facility] Mitochondria M2 Ab IA Qn (S) 19.9 NINF [facility] Mitochondria M2 Ab Ql (S) Negative Negative [facility] Comment on above: Anti-mitochondrial a ntibody test is used as an aid in diagnosis of primary biliary cholangitis. Clinical correlation is required. [facility] Comprehensive metabolic 2000 panelon 06-21-2024 Albumin [Mass/Vol] 4.0 g/dL 3.9 - 4.9 g/dL [facility] ALP [Catalytic activity/Vol] 151 U/L High 34 - 123 U/L [facility] ALT [Catalytic activity/Vol] 17 U/L 7 - 38 U/L [facility] Anion gap [Moles/Vol] 11 mmol/L 8 - 15 mmol/L [facility] AST [Catalytic activity/Vol] 16 U/L 13 - 35 U/L [facility] Bilirubin [Mass/Vol] 0.3 mg/dL 0.2 - 1 .3 mg/dL [facility] Calcium [Mass/Vol] 9.6 mg/dL 8.5 - 10. 2 mg/dL [facility] Chloride [Moles/Vol] 104 mmol/L 98 - 10 7 mmol/L [facility] CO2 [Moles/Vol] 23 mmol/L 22 - 30 mmol/L [facility] Creatinine [Mass/Vol] 1.02 mg/dL High 0.58 - 0.96 mg/dL [facility] GFR/1.73 sq M.predicted among non-blacks MDRD (S/P/Bld) [Vol rate/Area] 74 mL/min/{1.73_m2} - PINF [facility] Comment on above: Estimated Glomerular Filtration Rate (eGFR) is calculated using the 2020 CKD-EPI creatinine equation. This equation utilizes serum creatinine, sex, and age as parameters. The creatinine assay has traceable calibration to isotope dilution-mass spectrometry. Refer to KDIGO guidelines for clinical interpretation. In patients with unstable renal function, e.g. those with acute kidney injury, the eGFR may not accurately reflect actual GFR. Glucose [Mass/Vol] 93 mg/dL 74 - 99 mg/dL [facility] Comment on above: The [place] Diab[employer] s Association (ADA) provides guidance for cutoff values for fasting glucose and random glucose. The ADA defines fasting as no caloric intake for at least 8 hours. Fasting plasma glucose results between 100 to 125 mg/dL indicate increased risk for diabetes (prediabetes). Fasting plasma glucose results greater than or equal to 126 mg/dL meet the criteria for diagnosis of diabetes. In the absence of unequivocal hyperglycemia, results should be confirmed by repeat testing. In a patient with classic symptoms of hyperglycemia or hyperglycemic crisis, random plasma glucose results greater than or equal to 200 mg/dL meet the criteria for diagnosis of diabetes. Reference: Standards of Medical Care in Diabetes 2016, [place] [employer]. Diabetes Care. 2016.39(Suppl 1). Interpretation and review of laboratory results Abnormal [facility] Potassium [Moles/Vol] 4.0 mmol/L 3.7 - 5.1 mmol/L [facility] Protein [Mass/Vol] 6.9 g/dL 6.3 - 8.0 g/dL [facility] Sodium [Moles/Vol] 138 mmol/L 136 - 144 mmol/L [facility] Urea nitrogen [Mass/Vol] 10 mg/dL 7 - 21 mg/dL [facility] HEPATITIS A ANTIBODY, IGGon 06-21-2024 HAV IgG Ql (S) Negative [facility] Comment on above: No serological evide nce of immunity to Hepatitis A Virus. [facility] [facility] IMMUNOGLOBULIN [place] 4 IgG [Mass/Vol] 1061 mg/dL 700 - 1600 mg/dL [facility] IMMUNOGLOBULIN Mon 4 IgM [Mass/Vol] 82 mg/dL 40 - 230 mg/dL [facility] Liver ultrasound attenuation by transient elastographyon 06-21-2024 Fibroscan Report Date performed: June 21, 2024 Performed by: Quita Parks LPN Interpreted by: Lilo Jennings APRN, DIRECTOR DIVERSITY Patient fasted 3 hours:Yes Indication: Elevated Alkaline Phosphatase Level Technical difficulties: None. Result: The reading was adequate. Please refer to get images report for individual readings Number of readings: 10 IQR %: 13 E (kpa): 4.0 CAP: 199 Impression The liver stiffness is 4.0 kPa which corresponds to 94% chance of stage F0-F2 fibrosis. The CAP analysis showed grade S0 of liver steatosis. Stage of liver fibrosis based on above kPa: A 94% chance of stage 0-2 fibrosis A 6% chance of stage 3-4 fibrosis (advanced fibrosis) A <1% chance of stage 4 fibrosis (cirrhosis). A kPa >20 indicates a high likelihood of stage 4 fibrosis/cirrhosis, consider further testing to confirm and referral to hepatology. Lilo Jennings APRN.DIRECTOR DIVERSITY Others/All Fibroscan Fibrosis Risk <7 kPA = F0-F2 94%, F3+F4 6%, F4 <1% <10 kPA = F0-F2 88%, F3+F4 12%, F4 1.8% 10-15 kPA = F0-F2 47%, F3+F4 53%, F4 1.9% >15 kPA = F0-F2 17%, F3+F4 83%, F4 61% Grade CAP value up to 237 dB/M corresponds to S0 (< 10 % Fat) CAP value between (238 - 258 dB/M) corresponds to S1 (>/= 11 % Fat) CAP value between (259 - 289 dB/M) corresponds to S2 (>/= 33 % Fat) CAP value > 290dB/M corresponds to S3 (>/= 67 % Fat) stage 0 ( S0:< 10 % steatosis) stage 1 (>/= S1: 11%-33% steatosis) stage 2 (>/= S2: 34%-66% steatosis) stage 3 (>/= S3: > 66% steatosis) Reference Tony Y, Anton Q, Jimenez T, Treva J, Tony H, Martin T. Controlled attenuation parameter for assessment of hepatic steatosis grades: a diagnostic meta-analysis. Int J Clin Exp Med. 2015 Jul 19;8(10):70795-63. PMID: 04713863; PMCID: [id number]. Hang Arzate, Taylor IAN, Summer M, Sumit F, Ni J, Max O, Jareth F, Felix M, Naseem G, Claire A, Brocharissein E, Ghulam L, Chano G, Jacob A, Zoran U, Enoch S, Genevieve P, Brittny V, de Kevin V, Fran M, Helga EA. Refining the Baveno elastography criteria for the definition of compensated advanced chronic liver disease. J Hepatol. 2020;74(5):6810-3119. doi: 10.1016/j.jhep.2020.11 .050. Epub 2019Sep 12. PMID: 38673255. Franchesca Arzate, Shira B, Rocio Arzate, Richard Arzate, Marylu S, Rose Krause, Favian Krause, Gaby Mcgowan. AASLD practice guidance on the clinical assessment and management of nonalcoholic fatty liver disease. Hepatology. 2022;77(5):8457-3963. doi:10.1097/HEP.998070 [id number] [facility] Radiology Study observation (narrative) [facility] No Panel Informationon 06-21 [facility] Interpretation and review of laboratory results Normal [facility] US Kidney - bilateral and Ur inary bladderon 06-21-2024 IMPRESSION: NORMAL SONOGRAPHIC APPEARANCE OF KIDNEYS AND BLADDER. Machinist Set Up: FABRICE Transcribe Date/Time: Jun 21 2024 2:51P Dictated by : IMAN ALANIZ MD This examination was interpreted and the report reviewed and electronically signed by: IMAN ALANIZ MD on Jun 21 2024 2:52PM [facility] * * *Final Report* * * DATE OF EXAM: Jun 21 2024 2:45PM [facility] 1055 - US KIDNEY/BLADDER / PROCEDURE REASON: Elevated serum creatinine * * * * Physician Interpretation * * * * EXAMINATION: RENAL ULTRASOUND CLINICAL HISTORY: Elevated serum creatinine TECHNIQUE: Sonography of the kidneys and urinary bladder was performed. Images were obtained and stored in a permanent archive and interpreted remotely. MQ: UR_1 COMPARISON: None RESULT: Right Kidney: -Renal length: 9.5 cm -Parenchyma: Normal parenchymal echogenicity. Normal parenchymal thickness. -Collecting system: No hydronephrosis. -Calculus: No echogenic, shadowing calculus. -Lesion: None. Left Kidney: -Renal length: 9.1 cm -Parenchyma: Normal parenchymal echogenicity. Normal parenchymal thickness. -Collecting system: No hydronephrosis. -Calculus: No echogenic, shadowing calculus. -Lesion: None. Bladder: Normal sonographic appearance. Prevoid bladder volume measures 145 mL. Post void bladder volume measures 7 mL. DIVISION OF RADIOLOGY [facility] * * *Final Report* * * DATE OF EXAM: Jun 21 2024 2:45PM [facility] 1055 - US KIDNEY/BLADDER / PROCEDURE REASON: Elevated serum creatinine * * * * Physician Interpretation * * * * EXAMINATION: RENAL ULTRASOUND CLINICAL HISTORY: Elevated serum creatinine TECHNIQUE: Sonography of the kidneys and urinary bladder was performed. Images were obtained and stored in a permanent archive and interpreted remotely. MQ: UR_1 COMPARISON: None RESULT: Right Kidney: -Renal length: 9.5 cm -Parenchyma: Normal parenchymal echogenicity. Normal parenchymal thickness. -Collecting system: No hydronephrosis. -Calculus: No echogenic, shadowing calculus. -Lesion: None. Left Kidney: -Renal length: 9.1 cm -Parenchyma: Normal parenchymal echogenicity. Normal parenchymal thickness. -Collecting system: No hydronephrosis. -Calculus: No echogenic, shadowing calculus. -Lesion: None. Bladder: Normal sonographic appearance. Prevoid bladder volume measures 145 mL. Post void bladder volume measures 7 mL. IMPRESSION IMPRESSION: NORMAL SONOGRAPHIC APPEARANCE OF KIDNEYS AND BLADDER. Machinist Set Up: FABRICE Transcribe Date/Time: Jun 21 2024 2:51P Dictated by : IMAN ALANIZ MD This examination was interpreted and the report reviewed and electronically signed by: IMAN ALANIZ MD on Jun 21 2024 2:52PM EST [facility] Radiology Study observation (narrative) [facility] STREP A MOLECULAR (POC)on Procedural Control Valid [facility] Strep A (POCT) Negative Negative [facility] UA DIP, URINE (POC)on 2023 BILIRUBIN UA (POCT) Small Abnormal Negative [facility] CLARITY UA (POCT) Clear [facility] COLOR UA (POCT) Yellow [facility] GLUCOSE UA (POCT) Negative Negative mg/dL [facility] Hemoglobin Ql (U) Trace-lysed Abnormal Negative [facility] Interpretation and review of laboratory results Abnormal [facility] KETONE UA (POCT) Trace Negative mg/dL [facility] LEUKOCYTES UA (POCT) Small Abnormal Negative [facility] NITRITE UA (POCT) Negative [facility] PH UA (POCT) 6.0 4.5 - 8.0 [facility] Protein Ql (U) Trace Abnormal Negative mg/dL [facility] SPECIFIC GRAVITY UA (POCT) >=1.030 1.005 - 1.030 [facility] UROBILINOGEN UA (POCT) 0.2 Raisa l E.U./dL [facility] Location:[address], [place], [address] [facility] POINT OF CARE [facility] CBC W Auto Differential pane l (Bld)on 04-01-2024 Basophils (Bld) [#/Vol] 0.06 10*3/uL NINF [facility] Basophils/100 WBC (Bld) 0.9 % [facility] Differential cell count method Nom (Bld) Auto [facility] Eosinophils (Bld) [#/Vol] 0.19 10*3/uL [facility] Eosinophils/100 WBC (Bld) 2.7 % [facility] Erythrocyte distribution width (RBC) [Ratio] 12.5 % 11.5 - 15.0 % [facility] Hematocrit (Bld) [Volume fraction] 40.2 % 36.0 - 46.0 % [facility] Hemoglobin (Bld) [Mass/Vol] 13.3 g/dL 11.5 - 15.5 g/dL [facility] Immature granulocytes (Bld) [#/Vol] [facility] Immature granulocytes/100 WBC (Bld) 0.3 % [facility] Lymphocytes (Bld) [#/Vol] 1.52 10*3/uL [facility] Lymphocytes/100 WBC (Bld) 21.8 % [facility] MCH (RBC) [Entitic mass] 31.1 pg 26.0 - 34.0 pg [facility] MCHC (RBC) [Mass/Vol] 33.1 g/dL 30.5 - 36.0 g/dL [facility] MCV (RBC) [Entitic vol] 94.1 fL 80.0 - 100.0 fL [facility] Monocytes (Bld) [#/Vol] 0.55 10*3/uL [facility] Monocytes/100 WBC (Bld) 7.9 % [facility] Neutrophils (Bld) [#/Vol] 4.63 10*3/uL [facility] Neutrophils/100 WBC (Bld) 66.4 % [facility] Nucleated RBC (Bld) [#/Vol] [facility] Nucleated RBC/100 WBC (Bld) [Ratio] 0.0 % /100 WBC [facility] Platelet mean volume (Bld) [Entitic vol] 9.9 fL 9.0 - 12.7 fL [facility] Platelets (Bld) [#/Vol] 323 10*3/uL [facility] RBC (Bld) [#/Vol] 4.27 10*6/uL 3.90 - 5.2 0 m/uL [facility] WBC (Bld) [#/Vol] 6.97 10*3/uL [facility] Comprehensive metabolic 2000 panelon 04-01-2024 Albumin [Mass/Vol] 4.0 g/dL 3.9 - 4.9 g/dL [facility] ALP [Catalytic activity/Vol] 131 U/L High 34 - 123 U/L [facility] ALT [Catalytic activity/Vol] 11 U/L 7 - 38 U/L [facility] Anion gap [Moles/Vol] 11 mmol/L 8 - 15 mmol/L [facility] AST [Catalytic activity/Vol] 15 U/L 13 - 35 U/L [facility] Bilirubin [Mass/Vol] 0.2 mg/dL 0.2 - 1 .3 mg/dL [facility] Calcium [Mass/Vol] 9.1 mg/dL 8.5 - 10. 2 mg/dL [facility] Chloride [Moles/Vol] 106 mmol/L 98 - 10 7 mmol/L [facility] CO2 [Moles/Vol] 22 mmol/L 22 - 30 mmol/L [facility] Creatinine [Mass/Vol] 1.00 mg/dL High 0.58 - 0.96 mg/dL [facility] GFR/1.73 sq M.predicted among non-blacks MDRD (S/P/Bld) [Vol rate/Area] 75 mL/min/{1.73_m2} - PINF [facility] Comment on above: Estimated Glomerular Filtration Rate (eGFR) is calculated using the 2020 CKD-EPI creatinine equation. This equation utilizes serum creatinine, sex, and age as parameters. The creatinine assay has traceable calibration to isotope dilution-mass spectrometry. Refer to KDIGO guidelines for clinical interpretation. In patients with unstable renal function, e.g. those with acute kidney injury, the eGFR may not accurately reflect actual GFR. Glucose [Mass/Vol] 85 mg/dL 74 - 99 mg/dL [facility] Comment on above: The [place] Di[employer] Association (ADA) provides guidance for cutoff values for fasting glucose and random glucose. The ADA defines fasting as no caloric intake for at least 8 hours. Fasting plasma glucose results between 100 to 125 mg/dL indicate increased risk for diabetes (prediabetes). Fasting plasma glucose results greater than or equal to 126 mg/dL meet the criteria for diagnosis of diabetes. In the absence of unequivocal hyperglycemia, results should be confirmed by repeat testing. In a patient with classic symptoms of hyperglycemia or hyperglycemic crisis, random plasma glucose results greater than or equal to 200 mg/dL meet the criteria for diagnosis of diabetes. Reference: Standards of Medical Care in Diabetes 2016, [place] [employer]. Diabetes Care. 2016.39(Suppl 1). Interpretation and review of laboratory results Abnormal [facility] Potassium [Moles/Vol] 4.2 mmol/L 3.7 - 5.1 mmol/L [facility] Protein [Mass/Vol] 6.7 g/dL 6.3 - 8.0 g/dL [facility] Sodium [Moles/Vol] 139 mmol/L 136 - 144 mmol/L [facility] Urea nitrogen [Mass/Vol] 12 mg/dL 7 - 21 mg/dL [facility] XR CHEST 2V FRONTAL/LATon [facility] XR Chest PA and Lateralon IMPRESSION: No active disease in the chest. Machinist Set Up: FABRICE Transcribe Date/Time: Sep 17 2023 2:59P Dictated by : OZZY MILAN MD This examination was interpreted and the report reviewed and electronically signed by: OZZY MILAN MD on Sep 17 2023 2:59PM [facility] DIV[facility] * * *Final Report* * * DATE OF EXAM: Sep 17 2023 2:56PM [facility] 5291 - XR CHEST 2V FRONTAL/LAT / PROCEDURE REASON: Acute cough * * * * Physician Interpretation * * * * CHEST X-RAY CLINICAL HISTORY: Acute cough TECHNIQUE: Upright frontal and lateral views. COMPARISON: 11/25/2021 RESULT: Heart/mediastinum: Within normal limits. Lungs/pleura: Clear. Bones/soft tissues: Unremarkable. Lines/tubes/devices: None visualized. DIVISION OF RADIOLOGY Provider, [facility] - 09/17/2023 * * *Final Report* * * DATE OF EXAM: Sep 17 2023 2:56PM [facility] 5291 - XR CHEST 2V FRONTAL/LAT / PROCEDURE REASON: Acute cough * * * * Physician Interpretation * * * * CHEST X-RAY CLINICAL HISTORY: Acute cough TECHNIQUE: Upright frontal and lateral views. COMPARISON: 11/25/2021 RESULT: Heart/mediastinum: Within normal limits. Lungs/pleura: Clear. Bones/soft tissues: Unremarkable. Lines/tubes/devices: None visualized. IMPRESSION IMPRESSION: No active disease in the chest. Machinist Set Up: PSCB Transcribe Date/Time: Sep 17 2023 2:59P Dictated by : OZZY MILAN MD This examination was interpreted and the report reviewed and electronically signed by: OZZY MILAN MD on Sep 17 2023 2:59PM EST [facility] Radiology Study observation (narrative) [facility] XR Chest PA and LateralOrder ed By: [facility] Provider on 09-17-2023 [facility] CBC W Auto Differential pane l (Bld)on 04-02-2023 Basophils (Bld) [#/Vol] 0.08 10*3/uL <0.11 k/uL [facility] Basophils/100 WBC (Bld) 1.0 % [facility] Differential cell count method Nom (Bld) Auto [facility] Eosinophils (Bld) [#/Vol] 0.23 10*3/uL <0.46 k/uL [facility] Eosinophils/100 WBC (Bld) 2.8 % [facility] Erythrocyte distribution width (RBC) [Ratio] 11.9 % 11.5 - 15.0 % [facility] Hematocrit (Bld) [Volume fraction] 41.1 % 36.0 - 46.0 % [facility] Hemoglobin (Bld) [Mass/Vol] 13.5 g/dL 11.5 - 15.5 g/dL [facility] Immature granulocytes (Bld) [#/Vol] 0.04 10*3/uL <0.10 k/uL [facility] Immature granulocytes/100 WBC (Bld) 0.5 % [facility] Lymphocytes (Bld) [#/Vol] 1.81 10*3/uL 1.00 - 4.00 k/uL [facility] Lymphocytes/100 WBC (Bld) 21.7 % [facility] MCH (RBC) [Entitic mass] 30.5 pg 26.0 - 34.0 pg [facility] MCHC (RBC) [Mass/Vol] 32.8 g/dL 30.5 - 36.0 g/dL [facility] MCV (RBC) [Entitic vol] 93.0 fL 80.0 - 100.0 fL [facility] Monocytes (Bld) [#/Vol] 0.58 10*3/uL <0.87 k/uL [facility] Monocytes/100 WBC (Bld) 6.9 % [facility] Neutrophils (Bld) [#/Vol] 5.62 10*3/uL 1.45 - 7.50 k/uL [facility] Neutrophils/100 WBC (Bld) 67.1 % [facility] Nucleated RBC (Bld) [#/Vol] <0.01 k/uL [facility] Nucleated RBC/100 WBC (Bld) [Ratio] 0.0 /100 WBC [facility] Platelet mean volume (Bld) [Entitic vol] 9.5 fL 9.0 - 12.7 fL [facility] Platelets (Bld) [#/Vol] 350 10*3/uL 150 - 400 k/uL [facility] RBC (Bld) [#/Vol] 4.42 10*6/uL 3.90 - 5.2 0 m/uL [facility] WBC (Bld) [#/Vol] 8.36 10*3/uL 3.70 - 11. 00 k/uL [facility] Comprehensive metabolic 2000 panelon 04-02-2023 Albumin [Mass/Vol] 4.2 g/dL 3.9 - 4.9 g/dL [facility] ALP [Catalytic activity/Vol] 105 U/L 34 - 123 U/L [facility] ALT [Catalytic activity/Vol] 14 U/L 7 - 38 U/L [facility] Anion gap [Moles/Vol] 13 mmol/L 9 - 18 mmol/L [facility] AST [Catalytic activity/Vol] 20 U/L 13 - 35 U/L [facility] Bilirubin [Mass/Vol] Low 0.2 - 1 .3 mg/dL [facility] Calcium [Mass/Vol] 9.3 mg/dL 8.5 - 10. 2 mg/dL [facility] Chloride [Moles/Vol] 104 mmol/L 97 - 10 5 mmol/L [facility] CO2 [Moles/Vol] 20 mmol/L Low 22 - 30 mmol/L [facility] Creatinine [Mass/Vol] 0.87 mg/dL 0.58 - 0.96 mg/dL [facility] Estimated Glomerular Filtration Rate 90 mL/min/1.73m >=60 mL/min/1.73m [facility] Glucose [Mass/Vol] 66 mg/dL Low 74 - 99 mg/dL [facility] Potassium [Moles/Vol] 4.6 mmol/L 3.7 - 5.1 mmol/L [facility] Protein [Mass/Vol] 7.2 g/dL 6.3 - 8.0 g/dL [facility] Sodium [Moles/Vol] 137 mmol/L 136 - 144 mmol/L [facility] Urea nitrogen [Mass/Vol] 17 mg/dL 7 - 21 mg/dL [facility] IGGon 04-02-2023 IgG [Mass/Vol] 1153 mg/dL 700 - 1,600 mg/dL [facility] IGMon 04-02-2023 IgM [Mass/Vol] 113 mg/dL 40 - 230 mg/dL [facility] STREP A MOLECULAR (POC)on Procedural Control Valid [facility] Strep A (POCT) Negative Negative [facility] CBC W Auto Differential pane l (Bld)on 10-02-2022 Basophils (Bld) [#/Vol] 0.04 10*3/uL <0.11 k/uL [facility] Basophils/100 WBC (Bld) 0.6 % [facility] Differential cell count method Nom (Bld) Auto [facility] Eosinophils (Bld) [#/Vol] 0.14 10*3/uL <0.46 k/uL [facility] Eosinophils/100 WBC (Bld) 2.2 % [facility] Erythrocyte distribution width (RBC) [Ratio] 12.1 % 11.5 - 15.0 % [facility] Hematocrit (Bld) [Volume fraction] 41.3 % 36.0 - 46.0 % [facility] Hemoglobin (Bld) [Mass/Vol] 13.7 g/dL 11.5 - 15.5 g/dL [facility] Immature granulocytes (Bld) [#/Vol] <0.10 k/uL [facility] Immature granulocytes/100 WBC (Bld) 0.3 % [facility] Lymphocytes (Bld) [#/Vol] 1.70 10*3/uL 1.00 - 4.00 k/uL [facility] Lymphocytes/100 WBC (Bld) 27.2 % [facility] MCH (RBC) [Entitic mass] 31.0 pg 26.0 - 34.0 pg [facility] MCHC (RBC) [Mass/Vol] 33.2 g/dL 30.5 - 36.0 g/dL [facility] MCV (RBC) [Entitic vol] 93.4 fL 80.0 - 100.0 fL [facility] Monocytes (Bld) [#/Vol] 0.38 10*3/uL <0.87 k/uL [facility] Monocytes/100 WBC (Bld) 6.1 % [facility] Neutrophils (Bld) [#/Vol] 3.98 10*3/uL 1.45 - 7.50 k/uL [facility] Neutrophils/100 WBC (Bld) 63.6 % [facility] Nucleated RBC (Bld) [#/Vol] <0.01 k/uL [facility] Nucleated RBC/100 WBC (Bld) [Ratio] 0.0 /100 WBC [facility] Platelet mean volume (Bld) [Entitic vol] 9.3 fL 9.0 - 12.7 fL [facility] Platelets (Bld) [#/Vol] 299 10*3/uL 150 - 400 k/uL [facility] RBC (Bld) [#/Vol] 4.42 10*6/uL 3.90 - 5.2 0 m/uL [facility] WBC (Bld) [#/Vol] 6.26 10*3/uL 3.70 - 11. 00 k/uL [facility] Comprehensive metabolic 2000 panelon 10-02-2022 Albumin [Mass/Vol] 4.2 g/dL 3.9 - 4.9 g/dL [facility] ALP [Catalytic activity/Vol] 91 U/L 34 - 123 U/L [facility] ALT [Catalytic activity/Vol] 11 U/L 7 - 38 U/L [facility] Anion gap [Moles/Vol] 11 mmol/L 9 - 18 mmol/L [facility] AST [Catalytic activity/Vol] 13 U/L 13 - 35 U/L [facility] Bilirubin [Mass/Vol] 0.2 mg/dL 0.2 - 1 .3 mg/dL [facility] Calcium [Mass/Vol] 9.2 mg/dL 8.5 - 10. 2 mg/dL [facility] Chloride [Moles/Vol] 106 mmol/L High 97 - 10 5 mmol/L [facility] CO2 [Moles/Vol] 21 mmol/L Low 22 - 30 mmol/L [facility] Creatinine [Mass/Vol] 0.92 mg/dL 0.58 - 0.96 mg/dL [facility] Estimated Glomerular Filtration Rate 84 mL/min/1.73m >=60 mL/min/1.73m [facility] Glucose [Mass/Vol] 64 mg/dL Low 74 - 99 mg/dL [facility] Potassium [Moles/Vol] 3.9 mmol/L 3.7 - 5.1 mmol/L [facility] Protein [Mass/Vol] 6.8 g/dL 6.3 - 8.0 g/dL [facility] Sodium [Moles/Vol] 138 mmol/L 136 - 144 mmol/L [facility] Urea nitrogen [Mass/Vol] 15 mg/dL 7 - 21 mg/dL [facility] IGGon 10-02-2022 IgG [Mass/Vol] 1103 mg/dL 700 - 1,600 mg/dL [facility] IGMon 10-02-2022 IgM [Mass/Vol] 152 mg/dL 40 - 230 mg/dL [facility] US FEMALE PELVIS TRANSVAGon 08-15-2022 [facility] UA DIP, URINE (POC)on 2021 BILIRUBIN UA (POCT) Negative Negative [facility] CLARITY UA (POCT) Clear [facility] COLOR UA (POCT) Yellow [facility] GLUCOSE UA (POCT) Negative Negative mg/dL [facility] HEMOGLOBIN/BLOOD UA (POCT) Negative Negative [facility] KETONE UA (POCT) Negative Negative mg/dL [facility] LEUKOCYTES UA (POCT) Negative Negative [facility] NITRITE UA (POCT) Negative Negative [facility] PH UA (POCT) 7.0 4.5 - 8.0 [facility] Protein Ql (U) Negative Negative mg/dL [facility] SPECIFIC GRAVITY UA (POCT) 1.015 1.005 - 1.030 [facility] UROBILINOGEN UA (POCT) 0.2 E.U./dL Raisa l E.U./dL [facility] MRI CERVICAL SPINE WO IVCONo n 06-20-2022 [facility] 100.0100on 05-16-2022 Hematocrit (Bld) [Volume fraction] 42.9 % Normal 37-47 [facility] Comment on above: Performed By: #### 5 7021-8, L100.0100, L500.2500, BMP #### [facility] [address] [place], [address] Hemoglobin (Bld) [Mass/Vol] 14.4 g/dL Normal 12.0-15.0 [facility] Comment on above: Performed By: #### 5 7021-8, L100.0100, L500.2500, BMP #### [facility] [address] [place], [address] Lymphocytes/100 WBC (Bld) 15.9 % Low 19-41 [facility] Comment on above: Performed By: #### 5 7021-8, L100.0100, L500.2500, BMP #### [facility] [address] [place], [address] MCHC (RBC) [Mass/Vol] 33.6 g/dL Normal 32-36 [facility] Comment on above: Performed By: #### 5 7021-8, L100.0100, L500.2500, BMP #### [facility] [address] [place], [address] MCV (RBC) [Entitic vol] 92.7 fL Normal 81-99 [facility] Comment on above: Performed By: #### 5 7021-8, L100.0100, L500.2500, BMP #### [facility] [address] [place], [address] Monocytes/100 WBC (Bld) 5.6 % Normal 0-10 [facility] Comment on above: Performed By: #### 5 7021-8, L100.0100, L500.2500, BMP #### [facility] [address] [place], [address] Platelet mean volume (Bld) [Entitic vol] 8.9 fL Normal 6.2-12.0 [facility] Comment on above: Performed By: #### 5 7021-8, L100.0100, L500.2500, BMP #### [facility] [address] [place], [address] Platelets (Bld) [#/Vol] 269 10*3/uL Normal 150-450 [facility] Comment on above: Performed By: #### 5 7021-8, L100.0100, L500.2500, BMP #### [facility] [address] [place], [address] RBC (Bld) [#/Vol] 4.63 10*6/uL Normal 4.2-5.4 [facility] Comment on above: Performed By: #### 5 7021-8, L100.0100, L500.2500, BMP #### [facility] [address] [place], [address] 400.2010on 05-16-2022 Clarity (U) Clear Normal Clear [facility] Comment on above: Order Comment: CLEAN CATCH Performed By: #### L 400.2010, 04254-5 #### [facility] [address] [place], [address] Color (U) Yellow Normal Yellow [facility] Comment on above: Order Comment: CLEAN CATCH Performed By: #### L 400.2010, 59860-2 #### [facility] [address] [place], [address] Nitrite Ql (U) Negative Normal Negative [facility] Comment on above: Order Comment: CLEAN CATCH Performed By: #### L 400.2010, 90057-5 #### [facility] [address] [place], [address] 500.2499on 05-16-2022 Calcium [Mass/Vol] 8.7 mg/dL Normal 8.5-10.1 [facility] Comment on above: Performed By: #### 5 7021-8, L100.0100, L500.2500, BMP #### [facility] [address] [place], [address] Creatinine [Mass/Vol] 0.90 mg/dL Normal 0.55-1.02 [facility] Comment on above: Result Comment: The validity of the calculated GFR GFRAA in patients over 70 years has not been determined. Clinical correlation is essential. Performed By: #### 5 7021-8, L100.0100, L500.2500, BMP #### [facility] [address] [place], [address] L 76 mL/min Normal >60 [facility] Comment on above: Result Comment: Non- GFR Calc Performed By: #### 5 7021-8, L100.0100, L500.2500, BMP #### [facility] [address] [place], [address] L 92 mL/min Normal >60 [facility] Comment on above: Result Comment: Afri can Tanzanian GFR Calc Performed By: #### 5 7021-8, L100.0100, L500.2500, BMP #### [facility] [address] [place], [address] L 73.55 ml/min Normal [facility] Comment on above: Performed By: #### 5 7021-8, L100.0100, L500.2500, BMP #### [facility] [address] [place], [address] L 14.4 RATIO Normal 10-20 [facility] Comment on above: Performed By: #### 5 7021-8, L100.0100, L500.2500, BMP #### [facility] [address] [place], [address] L 22.0 mmol/L Normal 21.0-32.0 [facility] Comment on above: Performed By: #### 5 7021-8, L100.0100, L500.2500, BMP #### [facility] [address] [place], [address] LN 137 mmol/L Normal 136-145 [facility] Comment on above: Result Comment: 3.9 109 Performed By: #### 5 7021-8, L100.0100, L500.2500, BMP #### [facility] [address] [place], [address] LN 6 Normal 5-15 [facility] Comment on above: Performed By: #### 5 7021-8, L100.0100, L500.2500, BMP #### [facility] [address] [place], [address] Urea nitrogen [Mass/Vol] 13 mg/dL Normal 7-18 [facility] Comment on above: Performed By: #### 5 7021-8, L100.0100, L500.2500, BMP #### [facility] [address] [place], [address] Absolute lymphocyte counton 05-16-2022 Lymphocytes Auto (Unsp spec) [#/Vol] 0.96 10*3/uL 0.83-4.51 [facility] Work Phone: Basic Metabolic Profile (BMP )on 05-16-2022 BUN/CRE 14.4 RATIO Normal 10-20 [facility] Comment on above: Performed By: #### 5 7021-8, L100.0100, L500.2500, BMP #### [facility] [address] [place], [address] CA,Total 8.7 mg/dL Normal 8.5-10.1 [facility] Comment on above: Performed By: #### 5 7021-8, L100.0100, L500.2500, BMP #### [facility] [address] [place], [address] Chloride [Moles/Vol] 109 mmol/L High 98-107 [facility] Comment on above: Performed By: #### 5 7021-8, L100.0100, L500.2500, BMP #### [facility] [address] [place], [address] CO2 [Moles/Vol] 22.0 mmol/L Normal 21.0-32.0 [facility] Comment on above: Performed By: #### 5 7021-8, L100.0100, L500.2500, BMP #### [facility] [address] [place], [address] ECRCL 73.55 ml/min Normal [facility] Comment on above: Performed By: #### 5 7021-8, L100.0100, L500.2500, BMP #### [facility] [address] [place], [address] EST GFR - AA 92 mL/min Normal >60 [facility] Comment on above: Result Comment: Afri can [place] GFR Calc Performed By: #### 5 7021-8, L100.0100, L500.2500, BMP #### [facility] [address] [place], [address] GAP 6 Normal 5-15 [facility] Comment on above: Performed By: #### 5 7021-8, L100.0100, L500.2500, BMP #### [facility] [address] [place], [address] GFR/1.73 sq M.predicted among non-blacks MDRD (S/P/Bld) [Vol rate/Area] 76 mL/min/{1.73_m2} Normal >60 [facility] Comment on above: Result Comment: Non- GFR Calc Performed By: #### 5 7021-8, L100.0100, L500.2500, BMP #### [facility] [address] [place], [address] Glucose [Mass/Vol] 112 mg/dL High 74-106 [facility] Comment on above: Result Comment: Fast ing Glucose result from 100 to 125 mg/dL suggests IMPAIRED HOMEOSTASIS per A.D.A. criteria. Performed By: #### 5 7021-8, L100.0100, L500.2500, BMP #### [facility] [address] [place], [address] Potassium [Moles/Vol] 3.9 mmol/L Normal 3.5-5.1 [facility] Comment on above: Performed By: #### 5 7021-8, L100.0100, L500.2500, BMP #### [facility] [address] [place], [address] Sodium [Moles/Vol] 137 mmol/L Normal 136-145 [facility] Comment on above: Performed By: #### 5 7021-8, L100.0100, L500.2500, BMP #### [facility] [address] [place], [address] Basophil percentageon 2021 Basophils/100 WBC (Bld) 0.5 % 0-1 [facility] Work Phone: [phone] Chloride [Moles/Vol] 109 mmol/L 98-107 [facility] Work Phone: Eosinophils/100 WBC (Bld) 0.3 % 0-5 [facility] Work Phone: Glucose [Mass/Vol] 112 mg/dL 74-106 [facility] Work Phone: Comment on above: Fasting Glucose resu lt from 100 to 125 mg/dL suggests IMPAIRED HOMEOSTASIS per A.D.A. criteria. Neutrophils (Bld) [#/Vol] 4.7 10*3/uL 2.0-7.7 [facility] Work Phone: Neutrophils/100 WBC (Bld) 77.4 % 47-70 [facility] Work Phone: Potassium [Moles/Vol] 3.9 mmol/L 3.5-5.1 [facility] Work Phone: Sodium [Moles/Vol] 137 mmol/L 136-145 [facility] Work Phone: WBC (Bld) [#/Vol] 6.0 10*3/uL 4.4-11.0 [facility] Work Phone: Bilirubin Test strip Ql (U)o n 05-16-2022 Bilirubin Ql (U) Negative Negative [facility] Work Phone: Blood erythrocytes count (nu mber/volume)on 05-16-2022 RBC (Bld) [#/Vol] 4.63 10*6/uL 4.2-5.4 [facility] Work Phone: Blood hemoglobin measurement (mass/volume)on 05-16-2022 Hemoglobin (Bld) [Mass/Vol] 14.4 g/dL 12.0-15.0 [facility] Work Phone: Blood lymphocytes/100 leukoc yteson 05-16-2022 Lymphocytes/100 WBC (Bld) 15.9 % 19-41 [facility] Work Phone: Blood monocytes/100 leukocyt eson 05-16-2022 Monocytes/100 WBC (Bld) 5.6 % 0-10 [facility] Work Phone: Blood platelet mean volumeon 05-16-2022 Platelet mean volume (Bld) [Entitic vol] 8.9 fL 6.2-12.0 [facility] Work Phone: CBC W Auto Differential pane l (Bld)on 05-16-2022 L 31.1 pg Normal 27.0-32.0 [facility] Comment on above: Performed By: #### 5 7021-8, L100.0100, L500.2500, BMP #### [facility] [address] [place], [address] L 11.7 % Normal 11.6-14.6 [facility] Comment on above: Performed By: #### 5 7021-8, L100.0100, L500.2500, BMP #### [facility] [address] [place], [address] L 39.9 fl Normal 35.1-43.9 [facility] Comment on above: Performed By: #### 5 7021-8, L100.0100, L500.2500, BMP #### [facility] [address] [place], [address] L 0.300 % Normal 0.0-0.9 [facility] Comment on above: Result Comment: IG% - Immature Granulocytes (promyelocytes, myelocytes and metamyelocytes) > 1% indicates that a LEFT SHIFT is Present. Performed By: #### 5 7021-8, L100.0100, L500.2500, BMP #### [facility] [address] [place], [address] L 0 % Normal 0-5 [facility] Comment on above: Performed By: #### 5 7021-8, L100.0100, L500.2500, BMP #### [facility] [address] [place], [address] LN 4.7 X10 3/uL Normal 2.0-7.7 [facility] Comment on above: Result Comment: 0.5 Performed By: #### 5 7021-8, L100.0100, L500.2500, BMP #### [facility] [address] [place], [address] Lymphocytes Auto (Unsp spec) [#/Vol] 0.96 X10 3/uL Normal 0.83-4.51 [facility] Comment on above: Performed By: #### 5 7021-8, L100.0100, L500.2500, BMP #### [facility] [address] [place], [address] CBC W/Diff, Automatedon 05-05 Absolute Lymph 0.96 X10 3/uL Normal 0.83-4.51 [facility] Comment on above: Performed By: #### 5 7021-8, L100.0100, L500.2500, BMP #### [facility] [address] [place], [address] Absolute Neut 4.7 X10 3/uL Normal 2.0-7.7 [facility] Comment on above: Performed By: #### 5 7021-8, L100.0100, L500.2500, BMP #### [facility] [address] [place], [address] Basophils/100 WBC (Bld) 0.5 % Normal 0-1 [facility] Comment on above: Performed By: #### 5 7021-8, L100.0100, L500.2500, BMP #### [facility] [address] [place], [address] Eosinophils/100 WBC (Bld) 0.3 % Normal 0-5 [facility] Comment on above: Performed By: #### 5 7021-8, L100.0100, L500.2500, BMP #### [facility] [address] [place], [address] Erythrocyte distribution width (RBC) [Ratio] 11.7 % Normal 11.6-14.6 [facility] Comment on above: Performed By: #### 5 7021-8, L100.0100, L500.2500, BMP #### [facility] [address] [place], [address] IG% 0.300 Normal 0.0-0.9 [facility] Comment on above: Result Comment: IG% - Immature Granulocytes (promyelocytes, myelocytes and metamyelocytes) > 1% indicates that a LEFT SHIFT is Present. Performed By: #### 5 7021-8, L100.0100, L500.2500, BMP #### [facility] [address] [place], [address] MCH (RBC) [Entitic mass] 31.1 pg Normal 27.0-32.0 [facility] Comment on above: Performed By: #### 5 7021-8, L100.0100, L500.2500, BMP #### [facility] [address] [place], [address] Neutrophils/100 WBC (Bld) 77.4 % High 47-70 [facility] Comment on above: Performed By: #### 5 7021-8, L100.0100, L500.2500, BMP #### [facility] [address] [place], [address] Nucleated RBC (Bld) [#/Vol] 0 10*3/uL Normal 0-5 [facility] Comment on above: Performed By: #### 5 7021-8, L100.0100, L500.2500, BMP #### [facility] [address] [place], [address] RDW SD 39.9 fl Normal 35.1-43.9 [facility] Comment on above: Performed By: #### 5 7021-8, L100.0100, L500.2500, BMP #### [facility] [address] [place], [address] WBC (Bld) [#/Vol] 6.0 10*3/uL Normal 4.4-11.0 [facility] Comment on above: Performed By: #### 5 7021-8, L100.0100, L500.2500, BMP #### [facility] [address] [place], [address] Determination of erythrocyte mean corpuscular volume (MCV)on 05-16-2022 MCV (RBC) [Entitic vol] 92.7 fL 81-99 [facility] Work Phone: Emergency Department Summary on 05-16-2022 Emergency Department Summary [facility] Medical Records Department [address] [place] [address] Emergency Department Summary 05/16/22 MR#: [id number] Acct: [id number] Name: ISAC PERES Rep #: [id number] : 1990 31 From: Alfred Goode MD PCP: Dr. Annie Justin MD Status:REG ER Location: ED HPI HPI - GI History of Present Illness Chief Complaint: Abd Pain Informant: patient and spouse/S.O. Abdominal Pain/Flank Pain Onset: Weeks Context: Sudden Onset Timing: Continuous and Waxes and wanes Quality: Aching Location: Diffuse Current Severity: Mild Maximum Severity: Moderate Worsened by: Nothing Relieved by: Nothing Nausea/Vomiting/Emesis GI Symptom: Positive for Nausea and Vomiting Onset: Days Diarrhea/Melena/Hemato chezia GI Symptom: Positive for Diarrhea; Negative for Melena or Hematochezia Onset: Days (6 days) Stool Quality: Positive for Loose, Watery and - (Became black after taking Pepto-Bismol) Severity: Severe Associated Symptoms Associated Symptoms: Positive for - (Decreased urine output); Negative for Dysuria, Frequency, Hematuria or Urgency Narrative Narrative: Patient is a 31-year-old female presents with abdominal pain, nausea, vomiting diarrhea that started approximately 6 days ago. She has significant mount of diarrhea. She states 10-15 loose watery stools per day. She is taken Pepto-Bismol with no improvement other than turning her stool black. She does endorse thirst and dry mouth. She does endorse orthostatic symptoms. She denies fever, chills night sweats. She denies respiratory or symptoms. She denies ill contacts. She does report decreased urine output. Vomiting has been minimal. She denies respiratory symptoms. Prior similar symptoms: No Recent Illness/Hospitalizatio n: No PFSH PFSH Medical History no medical history no medical history (Autoimmune disorder) Home Medications cyclobenzaprine 10 mg tablet 10 mg PO BID 01/17/19 [History Last Taken Unknown] folic acid 1 mg tablet 1 mg PO DAILY 11/03/19 [History Last Taken Unknown] methotrexate sodium 2.5 mg tablet 12.5 mg PO QWEEK 11/03/19 [History Last Taken Unknown] naproxen 500 mg tablet 500 mg PO BID PRN #20 tabs 11/03/19 [Rx Last Taken Unknown] prednisone 10 mg tablet 10 mg PO DAILY PRN Pain/Inflammation 11/03/19 [History Last Taken Unknown] dicyclomine 10 mg capsule 20 mg PO TIDAC #20 CAPSULES 05/16/22 [Rx Last Taken Unknown] ondansetron 4 mg disintegrating tablet 4 mg PO Q8H PRN PRN Nausea #10 tabs 05/16/22 [Rx Last Taken Unknown] Allergy/AdvReac Type Severity Reaction Status Date / Time No Known Allergies Allergy Verified 05/16/22 20:31 Social History (Updated 05/16/22 @ 21:[address] Alfred Goode MD) household members: spouse and children Smoking Status: Never smoker substance use type: does not use ROS ROS ED Constitutional Constitutional ED: Denies chills, fever(s), subjective, sweats or weight loss ENT ENT ED: Denies ear pain, rhinorrhea or sore throat Cardiovascular Cardiovascular: Denies chest pain, orthopnea, palpitations, paroxysmal nocturnal dyspnea or racing heartbeat Respiratory/Chest Respiratory/Chest: Denies cough, dyspnea, dyspnea on exertion, orthopnea or paroxysmal nocturnal dyspnea Gastrointestinal Gastrointestinal: Reports abdominal pain, diarrhea, nausea and vomiting; Denies constipation or melena Genitourinary Genitourinary ED: Reports other Details: Decreased urine output ; Denies dysuria, hematuria or urinary frequency Musculoskeletal Musculoskeletal: Denies arthralgias, back pain, myalgias or neck pain Integumentary Denies rash Neurologic Neurologic: Reports weakness; Denies headache(s) or paresthesias Psychiatric Psychiatric: Denies anxiety or depression Endocrine Endocrinology: Denies polydipsia or polyphagia Hematologic/Lymphatic Hematologic/Lymphatic: Denies easy bleeding or easy bruising EXAM Physical Exam Const Vital Signs: 05/16/22 20:31 Temperature 97.6 F L Temperature Source Temporal Pulse Rate 111 H Respiratory Rate 16 Blood Pressure 133/91 H Blood Pressure Mean 105 Pulse Ox 98 Oxygen Delivery Method Room Air Positive well nourished, well developed and obese General Appearance ED: well developed and NAD; Negative for pallor Nutritional Appearance: obese HEENT Reports TM's clear and dry mucous membranes HEENT Narrative: Ears normal. Nares patent. Uvula midline. normocephalic and atraumatic Tympanic Membrane ED: Yes TM's clear Mouth ED: Yes dry mucous membranes Mouth: dry mucous membranes Eyes PERRL and EOMs intact bilaterally Neck no lymphadenopathy, supple and no JVD Resp normal respiratory effort and clear to auscultation bilaterally Cardio regular rhythm, S1 normal heart sound, S2 normal heart sound and no murmurs Rate: tachycardic GI no masses; Negative f (more content not included)... Normal [facility] Hematocrit Auto (Bld) [Volum e fraction]on 05-16-2022 Hematocrit (Bld) [Volume fraction] 42.9 % 37-47 [facility] Work Phone: Ketones Test strip Ql (U)on 05-16-2022 Ketones Ql (U) Negative Negative [facility] Work Phone: Laboratory - Chemistry and C hemistry - challengeon 05-16-2022 CO2 [Moles/Vol] 22.0 mmol/L 21.0-32.0 [facility] Work Phone: Urea nitrogen/Creatinine [Mass ratio] 14.4 mg/mg 10-20 [facility] Work Phone: Laboratory - Hematology and Cell countson 05-16-2022 Erythrocyte distribution width (RBC) [Entitic vol] 39.9 fL 35.1-43.9 [facility] Work Phone: Erythrocyte distribution width (RBC) [Ratio] 11.7 % 11.6-14.6 [facility] Work Phone: Immature granulocytes/100 WBC (Bld) 0.300 % 0.0-0.9 [facility] Work Phone: Comment on above: IG% - Immature Granu locytes (promyelocytes, myelocytes and metamyelocytes) > 1% indicates that a LEFT SHIFT is Present. MCH (RBC) [Entitic mass] 31.1 pg 27.0-32.0 [facility] Work Phone: Nucleated RBC/100 WBC (Bld) [Ratio] 0 % 0-5 [facility] Work Phone: MCHC Auto (RBC) [Mass/Vol]on 05-16-2022 MCHC (RBC) [Mass/Vol] 33.6 g/dL 32-36 [facility] Work Phone: Nitrite Test strip Ql (U)on 05-16-2022 Nitrite Ql (U) Negative Negative [facility] Work Phone: No Panel Informationon 05-16 Estimated Creatinine Clearance Calc 73.55 ml/min [facility] Work Phone: Estimated GFR (MDRD) Amer 92 mL/min >60 [facility] Work Phone: Comment on above: GFR Calc Estimated GFR (MDRD) Non-Af Amer 76 mL/min >60 [facility] Work Phone: Comment on above: Non- GFR Calc Platelets bldon 05-16-2022 Platelets (Bld) [#/Vol] 269 10*3/uL 150-450 [facility] Work Phone: Protein Test strip Ql (U)on 05-16-2022 Protein Ql (U) Negative Negative [facility] Work Phone: Serum or plasma calcium jaden urement (mass/volume)on 05-16-2022 Calcium [Mass/Vol] 8.7 mg/dL 8.5-10.1 [facility] Work Phone: Serum or plasma creatinine m easurement (mass/volume)on 05-16-2022 Creatinine [Mass/Vol] 0.90 mg/dL 0.55-1.02 [facility] Work Phone: Comment on above: The validity of the calculated GFR & GFRAA in patients over 70 years has not been determined. Clinical correlation is essential. Serum or plasma urea nitroge n measurement (mass/volume)on 05-16-2022 Urea nitrogen [Mass/Vol] 13 mg/dL 7-18 [facility] Work Phone: Thin prep Papanicolaou smear with manual screeningon 05-16-2022 Thin prep Papanicolaou smear with manual screening 6 5-15 [facility] Work Phone: Urinalysis macro (dipstick) panel (U)on 05-16-2022 Bilirubin Ql (U) Negative Normal Negative [facility] Comment on above: Order Comment: CLEAN CATCH Performed By: #### L 400.2010, #### [facility] [address] [place], [address] Glucose Ql (U) Normal Normal Normal [facility] Comment on above: Order Comment: CLEAN CATCH Performed By: #### L 400.2010, #### [facility] [address] [place], [address] Ketones Ql (U) Negative Normal Negative [facility] Comment on above: Order Comment: CLEAN CATCH Performed By: #### L 400.2010, #### [facility] [address] [place], [address] Leukocyte esterase Test strip Ql (U) Negative Normal Negative [facility] Comment on above: Order Comment: CLEAN CATCH Performed By: #### L 400.2010, #### [facility] [address] [place], [address] pH (U) 6.0 [pH] Normal 5.0 - 8.0 [facility] Comment on above: Order Comment: CLEAN CATCH Performed By: #### L 400.2010, #### [facility] [address] [place], [address] Protein Ql (U) Negative Normal Negative [facility] Comment on above: Order Comment: CLEAN CATCH Performed By: #### L 400.2010, #### [facility] [address] [place], [address] RBC Ql (U) 10 /ul Abnormal Negative [facility] Comment on above: Order Comment: CLEAN CATCH Performed By: #### L 400.2010, #### [facility] [address] [place], [address] Specific gravity (U) [Rel density] 1.005 Normal 1.002-1.030 [facility] Comment on above: Order Comment: CLEAN CATCH Performed By: #### L 400.2010, #### [facility] [address] [place], [address] Urobilinogen Ql (U) Normal Normal Normal [facility] Comment on above: Order Comment: CLEAN CATCH Performed By: #### L 400.2010, #### [facility] [address] [place], [address] Urinalysis, Routine (Dipstic k)on 05-16-2022 BILIRUBIN URINE Negative Normal Negative [facility] Comment on above: Order Comment: CLEAN CATCH Performed By: #### L 400.2010, #### [facility] [address] [place], [address] GLUCOSE, UR Normal Normal Normal [facility] Comment on above: Order Comment: CLEAN CATCH Performed By: #### L 400.2010, #### [facility] [address] [place], [address] KETONE UR Negative Normal Negative [facility] Comment on above: Order Comment: CLEAN CATCH Performed By: #### L 400.2010, #### [facility] [address] [place], [address] LEUK ESTERASE Negative Normal Negative [facility] Comment on above: Order Comment: CLEAN CATCH Performed By: #### L 400.2010, #### [facility] [address] [place], [address] OCCULT BLOOD-UR 10 /ul Abnormal Negative [facility] Comment on above: Order Comment: CLEAN CATCH Performed By: #### L 400.2010, #### [facility] [address] [place], [address] pH UR 6.0 Normal 5.0 - 8.0 [facility] Comment on above: Order Comment: CLEAN CATCH Performed By: #### L 400.2010, 85409-2 #### [facility] [address] [place], [address] PROT DIPSTX Negative Normal Negative [facility] Comment on above: Order Comment: CLEAN CATCH Performed By: #### L 400.2010, 86817-8 #### [facility] [address] [place], [address] SP.GR. DIPSTX 1.005 Normal 1.002-1.030 [facility] Comment on above: Order Comment: CLEAN CATCH Performed By: #### L 400.2010, 95965-5 #### [facility] [address] [place], [address] UROBILI Normal Normal Normal [facility] Comment on above: Order Comment: CLEAN CATCH Performed By: #### L 400.2010, #### [facility] [address] [place], [address] Urine blood detectionon 05-05 RBC Ql (U) 10 /ul Negative [facility] Work Phone: Urine clarityon 05-16-2022 Clarity (U) Clear Clear [facility] Work Phone: Urine color determinationon 05-16-2022 Color (U) Yellow Yellow [facility] Work Phone: Urine glucose detectionon Glucose Ql (U) Normal mg/dl Normal [facility] Work Phone: Urine leukocyte esterase det ection by dipstickon 05-16-2022 Leukocyte esterase Test strip Ql (U) Negative Negative [facility] Work Phone: Urine pHon 05-16-2022 pH (U) 6.0 [pH] 5.0 - 8.0 [facility] Work Phone: Urine specific gravity measu rementon 05-16-2022 Specific gravity (U) [Rel density] 1.005 1.002-1.030 [facility] Work Phone: Urobilinogen Auto test strip Ql (U)on 05-16-2022 Urobilinogen Ql (U) Normal mg/dl Normal [facility] Work Phone: MRI BRAIN WO IVCONon 022 [facility] XR KNEE GENERAL 4V AP BOTH/P A BOTH/LAT/MERC RIGHTon 03-05-2022 [facility] XR Knee - right 4 Viewson IMPRESSION: No bone or articular abnormality. Machinist Set Up: FABRICE Transcribe Date/Time: Mar 05 2022 12:36P Dictated by : MAYELA AQUINO DO This examination was interpreted and the report reviewed and electronically signed by: MAYELA AQUINO DO on Mar 05 2022 12:38PM EST ESHA_DO_NOT_US E_DIVISION OF RADIOLOGY * * *Final Report* * * DATE OF EXAM: Mar 05 2022 11:41AM WOX 5203 - XR KNEE 4V AP/PA BOTH+LAT/MAURICIO RT / PROCEDURE REASON: Acute pain of right knee * * * * Physician Interpretation * * * * EXAMINATION: XR KNEE 4V AP/PA BOTH+LAT/MAURICIO RT PATIENT/TECHNOLOGIST PROVIDED HISTORY: Anterior to medial right knee pain with climbing stairs x several weeks. No injury CLINICAL INFORMATION: 31 years old Female with Acute pain of right knee TECHNIQUE: XR KNEE 4V AP/PA BOTH+LAT/MAURICIO RT Laterality: RIGHT Number of different views (projections): 4 COMPARISON: None. RESULT: Joint spaces are maintained. No joint effusion. No fracture. [id number]_US E_DIVISION OF RADIOLOGY Provider, [facility] - 03/05/2022 * * *Final Report* * * DATE OF EXAM: Mar 05 2022 11:41AM WOX 5203 - XR KNEE 4V AP/PA BOTH+LAT/MAURICIO RT / PROCEDURE REASON: Acute pain of right knee * * * * Physician Interpretation * * * * EXAMINATION: XR KNEE 4V AP/PA BOTH+LAT/MAURICIO RT PATIENT/TECHNOLOGIST PROVIDED HISTORY: Anterior to medial right knee pain with climbing stairs x several weeks. No injury CLINICAL INFORMATION: 31 years old Female with Acute pain of right knee TECHNIQUE: XR KNEE 4V AP/PA BOTH+LAT/MAURICIO RT Laterality: RIGHT Number of different views (projections): 4 COMPARISON: None. RESULT: Joint spaces are maintained. No joint effusion. No fracture. IMPRESSION IMPRESSION: No bone or articular abnormality. Machinist Set Up: Gracious Eloise Transcribe Date/Time: Mar 05 2022 12:36P Dictated by : MAYELA AQUINO DO This examination was interpreted and the report reviewed and electronically signed by: MAYELA AQUINO DO on Mar 05 2022 12:38PM [facility] Radiology Study observation (narrative) [facility] XR Knee - right 4 ViewsOrder ed By: Ccf Provider on 03-05-2022 [facility] XR Chest PA and Lateralon IMPRESSION: No acute radiographic abnormality. Machinist Set Up: [facility] [facility] Transcribe Date/Time: Nov 25 2021 10:13A Dictated by : SHERRIE GUNTER MD This examination was interpreted and the report reviewed and electronically signed by: SHERRIE GUNTER MD on Nov 25 2021 10:15AM [facility] * * *Final Report* * * DATE OF EXAM: Nov 25 2021 9:56AM WOX 5291 - XR CHEST 2V FRONTAL/LAT / PROCEDURE REASON: Cough * * * * Physician Interpretation * * * * EXAMINATION: CHEST RADIOGRAPH (2 VIEW FRONTAL & LATERAL) CLINICAL HISTORY: Cough MQ: XC2_6 EXAM DATE/TIME: 11/25/2021 9:56 AM COMPARISON: Chest x-ray 05/17/2019 RESULT: Lines, tubes, and devices: None. Lungs and pleura: No consolidation. No lung mass. No pleural effusion. No pneumothorax. Cardiomediastinal silhouette: Normal cardiomediastinal silhouette. Bones and soft tissues: Unremarkable. DIVISION OF RADIOLOGY Provider, [facility] - 11/25/2021 * * *Final Report* * * DATE OF EXAM: Nov 25 2021 9:56AM WOX 5291 - XR CHEST 2V FRONTAL/LAT / PROCEDURE REASON: Cough * * * * Physician Interpretation * * * * EXAMINATION: CHEST RADIOGRAPH (2 VIEW FRONTAL & LATERAL) CLINICAL HISTORY: Cough MQ: XC2_6 EXAM DATE/TIME: 11/25/2021 9:56 AM COMPARISON: Chest x-ray 05/17/2019 RESULT: Lines, tubes, and devices: None. Lungs and pleura: No consolidation. No lung mass. No pleural effusion. No pneumothorax. Cardiomediastinal silhouette: Normal cardiomediastinal silhouette. Bones and soft tissues: Unremarkable. IMPRESSION IMPRESSION: No acute radiographic abnormality. Machinist Set Up: [facility] Transcribe Date/Time: Nov 25 2021 10:13A Dictated by : SHERRIE GUNTER MD This examination was interpreted and the report reviewed and electronically signed by: SHERRIE GUNTER MD on Nov 25 2021 10:15AM EST [facility] Radiology Study observation (narrative) [facility] XR Chest PA and LateralOrder ed By: Cc Provider on 11-25-2021 [facility] XR Finger - left AP and Late ral and obliqueon 08-13-2021 * * *Final Report* * * DATE OF EXAM: Aug 13 2021 8:47AM WOX 5318 - XR DIGIT 3V FRONTAL/LAT/OBL LT / PROCEDURE REASON: Pain of left thumb * * * * Physician Interpretation * * * * Indication: Left thumb pain Comparison: None 3 views of the left thumb are obtained. There is normal architecture and mineralization of the bones. There is no acute fracture or dislocation. Joint spaces are maintained. Impression: 1. No acute fracture or dislocation. Machinist Set [facility] Transcribe Date/Time: Aug 13 2021 8:51A Dictated by : SHERRIE GUNTER MD This examination was interpreted and the report reviewed and electronically signed by: SHERRIE GUNTER MD on Aug 13 2021 8:51AM [facility] DIVISION OF RADIOLOGY Provider, [facility] - 08/13/2021 * * *Final Report* * * DATE OF EXAM: Aug 13 2021 8:47AM WOX 5318 - XR DIGIT 3V FRONTAL/LAT/OBL LT / PROCEDURE REASON: Pain of left thumb * * * * Physician Interpretation * * * * Indication: Left thumb pain Comparison: None 3 views of the left thumb are obtained. There is normal architecture and mineralization of the bones. There is no acute fracture or dislocation. Joint spaces are maintained. Impression: 1. No acute fracture or dislocation. Machinist Set Up: [facility] Transcribe Date/Time: Aug 13 2021 8:51A Dictated by : SHERRIE GUNTER MD This examination was interpreted and the report reviewed and electronically signed by: SHERRIE GUNTER MD on Aug 13 2021 8:51AM EST [facility] Radiology Study observation (narrative) [facility] XR Finger - left AP and Late ral and obliqueOrdered By: Ccf Provider on 08-13-2021 [facility] XR Temporomandibular joint - bilateral Open and Closed mouthon 12-26-2020 IMPRESSION: Unremarkable exam. Machinist Set Up: [facility] Transcribe Date/Time: Dec 26 2020 2:39P Dictated by : SANTOS GRIJALVA MD This examination was interpreted and the report reviewed and electronically signed by: SANTOS GRIJALVA MD on Dec 26 2020 2:55PM EST DIVISION OF RADIOLOGY * * *Final Report* * * DATE OF EXAM: Dec 26 2020 2:22PM WOX 5267 - XR TMJ 4V OPEN/CLOSE ZHOU / PROCEDURE REASON: Jaw pain * * * * Physician Interpretation * * * * XR TMJ 4V OPEN/CLOSE ZHOU EXAM DATE/TIME: 12/26/2020 2:22 PM COMPARISON: None. CLINICAL INDICATION/HISTORY: TECHNIQUE: Closed mouth and open mouth views of the bilateral TMJ are presented for interpretation. FINDINGS: The bilateral temporomandibular joint spaces are maintained. Symmetric bilateral mandibular condyles on closed mouth view. There is symmetric anterior movement of the bilateral mandibular condyles (underneath the articular eminences) on the open-mouth view. DIVISION OF RADIOLOGY Provider, Marcello Dye [facility] - 12/26/2020 * * *Final Report* * * DATE OF EXAM: Dec 26 2020 2:22PM WOX 5267 - XR TMJ 4V OPEN/CLOSE ZHOU / PROCEDURE REASON: Jaw pain * * * * Physician Interpretation * * * * XR TMJ 4V OPEN/CLOSE ZHOU EXAM DATE/TIME: 12/26/2020 2:22 PM COMPARISON: None. CLINICAL INDICATION/HISTORY: TECHNIQUE: Closed mouth and open mouth views of the bilateral TMJ are presented for interpretation. FINDINGS: The bilateral temporomandibular joint spaces are maintained. Symmetric bilateral mandibular condyles on closed mouth view. There is symmetric anterior movement of the bilateral mandibular condyles (underneath the articular eminences) on the open-mouth view. IMPRESSION IMPRESSION: Unremarkable exam. Machinist Set Up: [facility] Transcribe Date/Time: Dec 26 2020 2:39P Dictated by : SANTOS GRIJALVA MD This examination was interpreted and the report reviewed and electronically signed by: SANTOS GRIJALVA MD on Dec 26 2020 2:55PM EST [facility] Radiology Study observation (narrative) [facility] XR Temporomandibular joint - bilateral Open and Closed mouthOrdered By: Ccf Provider on 12-26-2020 [facility] Vital Signs Date Time Vital Sign Value Performing Clinician Facility 04-06-2025 12:00-0400 Body temperature 98.1 [degF] Infusion 1 Work Phone: [facility] 04-06-2025 12:00-0400 Diastolic blood pressure 67 mm[Hg] Infusion 1 Work Phone: [facility] 04-06-2025 12:00-0400 Heart rate 101 /min Infusion 1 Work Phone: [facility] 04-06-2025 12:00-0400 Systolic blood pressure 119 mm[Hg] Infusion 1 Work Phone: [facility] 04-06-2025 11:54-0400 Body height 160 cm Lizet THOMAS-C Work Phone: [facility] 04-06-2025 11:54-0400 Body mass index (BMI) [Ratio] 38.09 kg/m2 Lizet THOMAS-C Work Phone: [facility] 04-06-2025 11:54-0400 Body weight 97.52 kg Lizet Brown PA-C Work Phone: [facility] 04-06-2025 11:54-0400 Diastolic blood pressure 79 mm[Hg] Lizet Brown PA-C Work Phone: [facility] 04-06-2025 11:54-0400 Heart rate 108 /min Lizet Brown PA-C Work Phone: [facility] 04-06-2025 11:54-0400 Systolic blood pressure 143 mm[Hg] Lizet Young PA-C Work Phone: [facility] 12-02-2024 08:13-0500 Body mass index (BMI) [Ratio] 39.33 kg/m2 Chiara Garciahobrennan MEDICAL HISTORIAN.DIRECTOR DIVERSITY Work Phone: [facility] 12-02-2024 08:13-0500 Body weight 100.7 kg Chiara Garciahobrennan MEDICAL HISTORIAN.DIRECTOR DIVERSITY Work Phone: [facility] 12-02-2024 08:13-0500 Diastolic blood pressure 74 mm[Hg] Chiara Garciahof MEDICAL HISTORIAN.DIRECTOR DIVERSITY Work Phone: [facility] 12-02-2024 08:13-0500 Heart rate 93 /min Chiara Garciahobrennan MEDICAL HISTORIAN.DIRECTOR DIVERSITY Work Phone: [facility] 12-02-2024 08:13-0500 Respiratory rate 16 /min Chiara Garciahobrennan MEDICAL HISTORIAN.DIRECTOR DIVERSITY Work Phone: [facility] 12-02-2024 08:13-0500 SaO2% (BldA) [Mass fraction] 97 % Chiara Garciahof MEDICAL HISTORIAN.DIRECTOR DIVERSITY Work Phone: [facility] 12-02-2024 08:13-0500 Systolic blood pressure 122 mm[Hg] Chiara Garciahobrennan MEDICAL HISTORIAN.DIRECTOR DIVERSITY Work Phone: [facility] 10-17-2024 14:34-0500 Body mass index (BMI) [Ratio] 39.44 kg/m2 Jordan Bajwa MEDICAL HISTORIAN.DIRECTOR DIVERSITY Work Phone: [facility] 10-17-2024 14:34-0500 Body temperature 98.8 [degF] Jordan Bajwa MEDICAL HISTORIAN.DIRECTOR DIVERSITY Work Phone: [facility] 10-17-2024 14:34-0500 Body weight 101 kg Jordan Bajwa APRN.DIRECTOR DIVERSITY Work Phone: [facility] 10-17-2024 14:34-0500 Diastolic blood pressure 68 mm[Hg] Jordan Bajwa APRN.DIRECTOR DIVERSITY Work Phone: [facility] 10-17-2024 14:34-0500 Heart rate 84 /min Jordan Bajwa APRN.DIRECTOR DIVERSITY Work Phone: [facility] 10-17-2024 14:34-0500 Respiratory rate 16 /min Jordan Bajwa APRN.DIRECTOR DIVERSITY Work Phone: [facility] 10-17-2024 14:34-0500 SaO2% (BldA) [Mass fraction] 98 % Jordan Bajwa APRN.DIRECTOR DIVERSITY Work Phone: [facility] 10-17-2024 14:34-0500 Systolic blood pressure 112 mm[Hg] Jordan Bajwa APRN.DIRECTOR DIVERSITY Work Phone: [facility] 10-06-2024 12:00-0500 Body temperature 99.39 [degF] Infusion 1 Work Phone: [facility] 10-06-2024 12:00-0500 Diastolic blood pressure 84 mm[Hg] Infusion 1 Work Phone: [facility] 10-06-2024 12:00-0500 Heart rate 108 /min Infusion 1 Work Phone: [facility] 10-06-2024 12:00-0500 Systolic blood pressure 143 mm[Hg] Infusion 1 Work Phone: [facility] 10-02-2024 13:45-0500 Body mass index (BMI) [Ratio] 39.72 kg/m2 Jordan Bajwa APRN.DIRECTOR DIVERSITY Work Phone: [facility] 10-02-2024 13:45-0500 Body temperature 98.01 [degF] Jordan Bajwa APRN.DIRECTOR DIVERSITY Work Phone: [facility] 10-02-2024 13:45-0500 Body weight 101.7 kg Jordan Bajwa APRN.DIRECTOR DIVERSITY Work Phone: [facility] 10-02-2024 13:45-0500 Diastolic blood pressure 83 mm[Hg] Jordan Aydee OSMAN.DIRECTOR DIVERSITY Work Phone: [facility] 10-02-2024 13:45-0500 Heart rate 82 /min Jordan Bajwa DAWSON.DIRECTOR DIVERSITY Work Phone: [facility] 10-02-2024 13:45-0500 SaO2% (BldA) [Mass fraction] 96 % Jordan Bajwa DAWSON.DIRECTOR DIVERSITY Work Phone: [facility] 10-02-2024 13:45-0500 Systolic blood pressure 119 mm[Hg] Jordan Bajwa DAWSON.DIRECTOR DIVERSITY Work Phone: [facility] 06-21-2024 07:57-0400 Body height 160 cm Bjorn Lofton MD Work Phone: [facility] 06-21-2024 07:57-0400 Body mass index (BMI) [Ratio] 40.61 kg/m2 Bjorn Lofton MD Work Phone: [facility] 06-21-2024 07:57-0400 Body temperature 98.4 [degF] Bjorn Lofton MD Work Phone: [facility] 06-21-2024 07:57-0400 Body weight 104 kg Bjorn Lofton MD Work Phone: [facility] 06-21-2024 07:57-0400 Diastolic blood pressure 80 mm[Hg] Bjorn Lofton MD Work Phone: [facility] 06-21-2024 07:57-0400 Heart rate 94 /min Bjorn Lofton MD Work Phone: [facility] 06-21-2024 07:57-0400 SaO2% (BldA) [Mass fraction] 100 % Bjorn Lofton MD Work Phone: [facility] 06-21-2024 07:57-0400 Systolic blood pressure 117 mm[Hg] Bjorn Lofton MD Work Phone: [facility] 06-16-2024 13:24-0400 Body mass index (BMI) [Ratio] 39.83 kg/m2 Jordan Bajwa APRN.DIRECTOR DIVERSITY Work Phone: [facility] 06-16-2024 13:24-0400 Body temperature 98.01 [degF] Jordan Bajwa APRN.DIRECTOR DIVERSITY Work Phone: [facility] 06-16-2024 13:24-0400 Body weight 102 kg Jordan Bajwa APRN.DIRECTOR DIVERSITY Work Phone: [facility] 06-16-2024 13:24-0400 Diastolic blood pressure 82 mm[Hg] Jordan Bajwa APRN.DIRECTOR DIVERSITY Work Phone: [facility] 06-16-2024 13:24-0400 Heart rate 92 /min Jordan Bajwa APRN.DIRECTOR DIVERSITY Work Phone: [facility] 06-16-2024 13:24-0400 Respiratory rate 18 /min Jordan Bajwa APRN.DIRECTOR DIVERSITY Work Phone: [facility] 06-16-2024 13:24-0400 SaO2% (BldA) [Mass fraction] 98 % Jordan Bajwa APRN.DIRECTOR DIVERSITY Work Phone: [facility] 06-16-2024 13:24-0400 Systolic blood pressure 116 mm[Hg] Jordan Bajwa APRN.DIRECTOR DIVERSITY Work Phone: [facility] 06-12-2024 11:04-0400 Body mass index (BMI) [Ratio] 39.83 kg/m2 Gris Miller APRN.DIRECTOR DIVERSITY Work Phone: [facility] 06-12-2024 11:04-0400 Body temperature 98.01 [degF] Gris Miller APRN.DIRECTOR DIVERSITY Work Phone: [facility] 06-12-2024 11:04-0400 Body weight 102 kg Gris Miller APRN.DIRECTOR DIVERSITY Work Phone: [facility] 06-12-2024 11:04-0400 Diastolic blood pressure 84 mm[Hg] Gris Praisler-Wood MEDICAL HISTORIAN.DIRECTOR DIVERSITY Work Phone: [facility] 06-12-2024 11:04-0400 Heart rate 80 /min Gris Praisler-Wood MEDICAL HISTORIAN.DIRECTOR DIVERSITY Work Phone: [facility] 06-12-2024 11:04-0400 Respiratory rate 20 /min Gris Praisler-Wood MEDICAL HISTORIAN.DIRECTOR DIVERSITY Work Phone: [facility] 06-12-2024 11:04-0400 SaO2% (BldA) [Mass fraction] 100 % Gris Praisler-Wood MEDICAL HISTORIAN.DIRECTOR DIVERSITY Work Phone: [facility] 06-12-2024 11:04-0400 Systolic blood pressure 117 mm[Hg] Gris Praisler-Wood MEDICAL HISTORIAN.DIRECTOR DIVERSITY Work Phone: [facility] 05-19-2024 14:55-0400 Body height 160 cm Francesca Whitling PA-C Work Phone: [facility] 05-19-2024 14:55-0400 Body mass index (BMI) [Ratio] 41.86 kg/m2 Francesca Whitling PA-C Work Phone: [facility] 05-19-2024 14:55-0400 Body weight 107.2 kg Francesca Whitling PA-C Work Phone: [facility] 05-17-2024 10:41-0400 Body mass index (BMI) [Ratio] 41.12 kg/m2 Lenny Sacha MEDICAL HISTORIAN.DIRECTOR DIVERSITY Work Phone: [facility] 05-17-2024 10:41-0400 Body weight 106.59 kg Lenny Sacha MEDICAL HISTORIAN.DIRECTOR DIVERSITY Work Phone: [facility] 05-17-2024 10:41-0400 Diastolic blood pressure 80 mm[Hg] Lenny Sacha MEDICAL HISTORIAN.DIRECTOR DIVERSITY Work Phone: [facility] 05-17-2024 10:41-0400 Heart rate 96 /min Lenny Sacha MEDICAL HISTORIAN.DIRECTOR DIVERSITY Work Phone: [facility] 05-17-2024 10:41-0400 Respiratory rate 16 /min Lenny Sacha MEDICAL HISTORIAN.DIRECTOR DIVERSITY Work Phone: [facility] 05-17-2024 10:41-0400 SaO2% (BldA) [Mass fraction] 98 % Lenny Sacha MEDICAL HISTORIAN.DIRECTOR DIVERSITY Work Phone: [facility] 05-17-2024 10:41-0400 Systolic blood pressure 120 mm[Hg] Lenny Sacha MEDICAL HISTORIAN.DIRECTOR DIVERSITY Work Phone: [facility] 05-12-2024 11:25-0400 Body height 161 cm Sendy Choudrant MEDICAL HISTORIAN.DIRECTOR DIVERSITY Work Phone: [facility] 05-12-2024 11:25-0400 Body mass index (BMI) [Ratio] 40.07 kg/m2 Sendy Choudrant MEDICAL HISTORIAN.DIRECTOR DIVERSITY Work Phone: [facility] 05-12-2024 11:25-0400 Body weight 103.87 kg Sendy Khushi MEDICAL HISTORIAN.DIRECTOR DIVERSITY Work Phone: [facility] 05-12-2024 11:25-0400 Diastolic blood pressure 80 mm[Hg] Sendy Khushi MEDICAL HISTORIAN.DIRECTOR DIVERSITY Work Phone: [facility] 05-12-2024 11:25-0400 Systolic blood pressure 126 mm[Hg] Sendy Choudrant MEDICAL HISTORIAN.DIRECTOR DIVERSITY Work Phone: [facility] 04-01-2024 11:30-0400 Body temperature 98.2 [degF] Infusion 11 Work Phone: [facility] 04-01-2024 11:30-0400 Diastolic blood pressure 67 mm[Hg] Infusion 11 Work Phone: [facility] 04-01-2024 11:30-0400 Heart rate 77 /min Infusion 11 Work Phone: [facility] 04-01-2024 11:30-0400 Systolic blood pressure 139 mm[Hg] Infusion 11 Work Phone: [facility] 09-17-2023 14:32-0500 Body temperature 98.49 [degF] Krislyn Aberegg PA Work Phone: [facility] 09-17-2023 14:32-0500 Body weight 108.86 kg Krislyn Aberegg PA Work Phone: [facility] 09-17-2023 14:32-0500 Diastolic blood pressure 77 mm[Hg] Krislyn Aberegg PA Work Phone: [facility] 09-17-2023 14:32-0500 Heart rate 86 /min Krislyn Aberegg PA Work Phone: [facility] 09-17-2023 14:32-0500 Respiratory rate 18 /min Krislyn Aberegg PA Work Phone: [facility] 09-17-2023 14:32-0500 SaO2% (BldA) [Mass fraction] 99 % Krislyn Aberegg PA Work Phone: [facility] 09-17-2023 14:32-0500 Systolic blood pressure 108 mm[Hg] Krislyn Aberegg PA Work Phone: [facility] 04-02-2023 12:46-0400 Body height 160 cm Lizet Young PA-C Work Phone: [facility] 04-02-2023 12:46-0400 Body weight 88.45 kg Lizet Young PA-C Work Phone: [facility] 04-02-2023 12:46-0400 Diastolic blood pressure 74 mm[Hg] Lizet Young PA-C Work Phone: [facility] 04-02-2023 12:46-0400 Heart rate 69 /min Lizet Young PA-C Work Phone: [facility] 04-02-2023 12:46-0400 Systolic blood pressure 111 mm[Hg] Lizet Young PA-C Work Phone: [facility] 04-02-2023 12:00-0400 Body temperature 98.1 [degF] Infusion 3 Work Phone: [facility] 04-02-2023 12:00-0400 Diastolic blood pressure 64 mm[Hg] Infusion 3 Work Phone: [facility] 04-02-2023 12:00-0400 Heart rate 92 /min Infusion 3 Work Phone: [facility] 04-02-2023 12:00-0400 Systolic blood pressure 110 mm[Hg] Infusion 3 Work Phone: [facility] 11-17-2022 11:00-0500 Body temperature 98.91 [degF] Jordan Bajwa APRN.DIRECTOR DIVERSITY Work Phone: [facility] 11-17-2022 11:00-0500 Body weight 89.81 kg Jordan Bajwa APRN.DIRECTOR DIVERSITY Work Phone: [facility] 11-17-2022 11:00-0500 Diastolic blood pressure 82 mm[Hg] Jordan Bajwa APRN.DIRECTOR DIVERSITY Work Phone: [facility] 11-17-2022 11:00-0500 Heart rate 60 /min Jordan Bajwa APRN.DIRECTOR DIVERSITY Work Phone: [facility] 11-17-2022 11:00-0500 Respiratory rate 16 /min Jordan Bajwa APRN.DIRECTOR DIVERSITY Work Phone: [facility] 11-17-2022 11:00-0500 SaO2% (BldA) [Mass fraction] 98 % Jordan Bajwa APRN.DIRECTOR DIVERSITY Work Phone: [facility] 11-17-2022 11:00-0500 Systolic blood pressure 132 mm[Hg] Jordan Bajwa APRN.DIRECTOR DIVERSITY Work Phone: [facility] 10-16-2022 11:00-0500 Body temperature 98.4 [degF] Infusion 6 Work Phone: [facility] 10-16-2022 11:00-0500 Diastolic blood pressure 70 mm[Hg] Infusion 6 Work Phone: [facility] 10-16-2022 11:00-0500 Heart rate 91 /min Infusion 6 Work Phone: [facility] 10-16-2022 11:00-0500 Systolic blood pressure 136 mm[Hg] Infusion 6 Work Phone: [facility] 10-02-2022 12:30-0500 Body temperature 98.6 [degF] Infusion 6 Work Phone: [facility] 10-02-2022 12:30-0500 Diastolic blood pressure 74 mm[Hg] Infusion 6 Work Phone: [facility] 10-02-2022 12:30-0500 Heart rate 87 /min Infusion 6 Work Phone: [facility] 10-02-2022 12:30-0500 Systolic blood pressure 133 mm[Hg] Infusion 6 Work Phone: [facility] 09-15-2022 14:39-0500 Body weight 88.45 kg Chiara Pedersen MEDICAL HISTORIAN.DIRECTOR DIVERSITY Work Phone: [facility] 09-15-2022 14:39-0500 Diastolic blood pressure 88 mm[Hg] Chiara Pedersen MEDICAL HISTORIAN.DIRECTOR DIVERSITY Work Phone: [facility] 09-15-2022 14:39-0500 Heart rate 89 /min Chiara Pedersen MEDICAL HISTORIAN.DIRECTOR DIVERSITY Work Phone: [facility] 09-15-2022 14:39-0500 Respiratory rate 16 /min Chiara Pedersen MEDICAL HISTORIAN.DIRECTOR DIVERSITY Work Phone: [facility] 09-15-2022 14:39-0500 SaO2% (BldA) [Mass fraction] 100 % Chiara Pedersen MEDICAL HISTORIAN.DIRECTOR DIVERSITY Work Phone: [facility] 09-15-2022 14:39-0500 Systolic blood pressure 122 mm[Hg] Chiara Pedersen MEDICAL HISTORIAN.DIRECTOR DIVERSITY Work Phone: [facility] 08-11-2022 14:33-0500 Diastolic blood pressure 76 mm[Hg] Kelly Chavez MEDICAL HISTORIAN.DIRECTOR DIVERSITY Work Phone: [facility] 08-11-2022 14:33-0500 Heart rate 96 /min Kelly Chavez MEDICAL HISTORIAN.DIRECTOR DIVERSITY Work Phone: [facility] 08-11-2022 14:33-0500 Respiratory rate 18 /min Kelly Chavez MEDICAL HISTORIAN.DIRECTOR DIVERSITY Work Phone: [facility] 08-11-2022 14:33-0500 SaO2% (BldA) [Mass fraction] 99 % Kelly Chavez MEDICAL HISTORIAN.DIRECTOR DIVERSITY Work Phone: [facility] 08-11-2022 14:33-0500 Systolic blood pressure 124 mm[Hg] Kelly Chavez MEDICAL HISTORIAN.DIRECTOR DIVERSITY Work Phone: [facility] 05-29-2022 16:07-0400 Body height 160 cm Arlyn Gomez MD, PhD Work Phone: [facility] 05-29-2022 16:07-0400 Body weight 84.37 kg Arlyn Gomez MD, PhD Work Phone: [facility] 05-29-2022 16:07-0400 Diastolic blood pressure 72 mm[Hg] Arlyn Gomez MD, PhD Work Phone: [facility] 05-29-2022 16:07-0400 Heart rate 107 /min Arlyn Gomez MD, PhD Work Phone: [facility] 05-29-2022 16:07-0400 Systolic blood pressure 117 mm[Hg] Arlyn Gomez MD, PhD Work Phone: [facility] 05-16-2022 22:47-0400 Body temperature 98.9 [degF] [facility] Work Phone: 05-16-2022 22:47-0400 Diastolic blood pressure 78 mm[Hg] [facility] Work Phone: 05-16-2022 22:47-0400 Heart rate 78 /min [facility] Work Phone: 05-16-2022 22:47-0400 Respiratory rate 14 /min [facility] Work Phone: 05-16-2022 22:47-0400 SaO2% (BldA) [Mass fraction] 99 % [facility] Work Phone: 05-16-2022 22:47-0400 Systolic blood pressure 126 mm[Hg] [facility] Work Phone: 05-16-2022 20:31-0400 Body height 160.02 cm [facility] Work Phone: 05-16-2022 20:31-0400 Body mass index (BMI) [Ratio] 33.6 kg/m2 [facility] Work Phone: 05-16-2022 20:31-0400 Body weight 86.18 kg [facility] Work Phone: 04-10-2022 08:00-0400 Body temperature 98.4 [degF] Kaylee Dahlhausen MEDICAL HISTORIAN.DIRECTOR DIVERSITY Work Phone: [facility] 04-10-2022 08:00-0400 Body weight 88.18 kg Kaylee Dahlhausen MEDICAL HISTORIAN.DIRECTOR DIVERSITY Work Phone: [facility] 04-10-2022 08:00-0400 Diastolic blood pressure 76 mm[Hg] Kaylee Dahlhausen MEDICAL HISTORIAN.DIRECTOR DIVERSITY Work Phone: [facility] 04-10-2022 08:00-0400 Heart rate 104 /min Kaylee Dahlhausen MEDICAL HISTORIAN.DIRECTOR DIVERSITY Work Phone: [facility] 04-10-2022 08:00-0400 Respiratory rate 18 /min Kaylee Dahlhausen MEDICAL HISTORIAN.DIRECTOR DIVERSITY Work Phone: [facility] 04-10-2022 08:00-0400 SaO2% (BldA) [Mass fraction] 98 % Kaylee Dahlhausen MEDICAL HISTORIAN.DIRECTOR DIVERSITY Work Phone: [facility] 04-10-2022 08:00-0400 Systolic blood pressure 108 mm[Hg] Kaylee Huerta MEDICAL HISTORIAN.DIRECTOR DIVERSITY Work Phone: [facility] Encounters Encounter Date Encounter Type Care Provider Facility Start: 06-20-2025 End: 06-20-2025 Patient encounter procedure Kate Craft OTR/L Work Phone: [facility] Occupational Therapy Comment on above: Multiple sclerosis ( HCC) Start: 06-20-2025 End: 06-20-2025 ambulatory Kate Craft OTR/L Work Phone: [facility] Occupational Therapy Start: 06-15-2025 End: 06-15-2025 ambulatory [facility] Facility:[facility] Start: 06-01-2025 End: 06-02-2025 ambulatory [facility] Facility:[facility] Start: 05-29-2025 End: 06-07-2025 Chart [facility] Work Phone: Neurology Start: 05-16-2025 End: 05-16-2025 ambulatory [facility] Facility:[facility] Start: 05-09-2025 End: 05-09-2025 ambulatory [facility] Facility:[facility] Start: 05-08-2025 End: 05-09-2025 Refill Rita Avendaño MD Work Phone: Dermatology Comment on above: Refill Request Start: 04-18-2025 End: 06-18-2025 Follow-up encounter Lizet Brown PA-C Work Phone: [facility] Start: 04-18-2025 End: 04-18-2025 Refill Lizet Brown PA-C Work Phone: [facility] Comment on above: Refill Request Start: 04-17-2025 End: 04-17-2025 Telephone encounter Shahram Brooks MD Work Phone: Dermatology Comment on above: Appointment Start: 04-17-2025 End: 04-17-2025 Telemedicine consultation with patient Shahram Brooks MD Work Phone: Dermatology Start: 04-17-2025 End: 04-17-2025 ambulatory Shahram Brooks MD Work Phone: Dermatology Comment on above: Melasma (Primary Dx) Start: 04-11-2025 End: 04-11-2025 ambulatory ANNIE JUSTIN Facility:[facility] Start: 04-06-2025 End: 04-06-2025 Patient encounter procedure Lizet Brown PA-C Work Phone: [facility] Comment on above: Multiple sclerosis ( HCC) (Primary Dx); Insomnia, unspecified type; Hair thinning Start: 04-06-2025 End: 04-06-2025 ambulatory Infusion [facility] 1 Work Phone: Multiple Sclerosis Comment on above: Multiple sclerosis ( HCC) (Primary Dx); Vitamin D deficiency Start: 03-20-2025 End: 03-20-2025 Orders Only Lizet Brown PA-C Work Phone: [facility] Comment on above: Vitamin D deficiency (Primary Dx) Start: 03-11-2025 End: 03-13-2025 ambulatory Annie Justin MD Work Phone: [facility] [place] Comment on above: Adderall Start: 02-07-2025 End: 02-07-2025 Telephone encounter Annie Justin MD Work Phone: [facility] [place] Comment on above: Insurance Authorizat ion Start: 01-30-2025 End: 01-31-2025 Refill Lizet Brown PA-C Work Phone: [facility] Comment on above: Refill Request Start: 12-02-2024 End: 12-02-2024 Office outpatient visit 25 minutes Chiara Pedersen APRN.CNP Work Phone: [facility] [place] Comment on above: Adult ADHD (Primary Dx); Multiple sclerosis (HCC); Elevated alkaline phosphatase level; Intractable migraine without aura and without status migrainosus; Elevated serum creatinine; Irritability; Screening for depression; Encounter for screening examination for other mental health and behavioral disorders Start: 12-02-2024 End: 12-02-2024 [facility] Facility:[facility] Start: 11-25-2024 End: 12-01-2024 ambulatory Lizet Brown PA-C Work Phone: [facility] Comment on above: Work/disability Start: 11-14-2024 End: 11-14-2024 Telemedicine consultation with patient Chiara Pedersen DAWSON.DIRECTOR DIVERSITY Work Phone: [facility] Start: 11-14-2024 End: 11-14-2024 ambulatory Chiara Pedersen MEDICAL HISTORIAN.DIRECTOR DIVERSITY Work Phone: [facility] [place] Comment on above: Bacterial sinusitis (Primary Dx) Start: 10-17-2024 End: 10-17-2024 Subsequent hospital visit by physician [facility] Work Phone: Radiology Comment on above: Acute cough [R05.1] Start: 10-17-2024 End: 10-17-2024 [facility] Facility:[facility] Start: 10-17-2024 End: 10-17-2024 Patient encounter procedure Jordan Bajwa APRN.DIRECTOR DIVERSITY Work Phone: [facility] [place] [facility] Comment on above: Sore throat (Primary Dx); Acute cough Start: 10-11-2024 End: 10-11-2024 ambulatory Lizet Brown MARTHABruce Work Phone: [facility] Comment on above: Multiple sclerosis ( HCC) (Primary Dx); Muscle spasm of back; Paresthesia of skin Start: 10-11-2024 End: 10-11-2024 Telemedicine consultation with patient Lizet Brown PA-C Work Phone: [facility] Start: 10-06-2024 End: 10-06-2024 Subsequent hospital visit by physician Noe Rodriguez (I-Stat/3t) Work Phone: Radiology Comment on above: Multiple sclerosis ( HCC) [G35] Start: 10-06-2024 End: 10-06-2024 ambulatory Infusion [facility] 1 Work Phone: Multiple Sclerosis Comment on above: Multiple sclerosis ( HCC) (Primary Dx) Start: 10-03-2024 End: 10-03-2024 Telephone encounter Lanre Rendon MD Work Phone: [facility] [place] [facility] Comment on above: Results (Annette+) Start: 10-02-2024 End: 10-02-2024 [facility] Start: 10-02-2024 End: 10-02-2024 Patient encounter procedure Jordan Bajwa APRN.DIRECTOR DIVERSITY Work Phone: [facility] Comment on above: Dysuria (Primary Dx) ; Vaginal itching Start: 09-21-2024 End: 09-21-2024 Orders Only Lizet Brown PA-C Work Phone: [facility] Start: 07-21-2024 End: 07-21-2024 Patient encounter procedure [facility] Comment on above: Headaches (Primary D x); Numbness in both legs Start: 07-21-2024 End: 07-21-2024 ambulatory DEION MEYER Facility:[facility] Start: 06-29-2024 End: 06-30-2024 ambulatory Bjorn Lofton MD Work Phone: Gastroenterology Comment on above: Question regarding M ITOCHONDRIAL AB SCR Start: 06-22-2024 End: 06-22-2024 ambulatory Lenny Mena APRN.DIRECTOR DIVERSITY Work Phone: [facility] [place] Comment on above: Ultrasound of kidney s Start: 06-22-2024 End: 06-22-2024 E-mail encounter from caregiver Lenny Mena APRN.DIRECTOR DIVERSITY Work Phone: [facility] [place] Start: 06-21-2024 End: 06-21-2024 Subsequent hospital visit by physician [facility] Work Phone: Radiology Comment on above: Elevated serum creat inine [R79.89] Start: 06-21-2024 End: 06-21-2024 ambulatory Hepatology A5 Work Phone: Gastroenterology Start: 06-21-2024 End: 06-21-2024 Patient encounter procedure Hepatology Procedures A5 Work Phone: Gastroenterology Comment on above: Elevated alkaline ph osphatase level Start: 06-19-2024 End: 06-22-2024 ambulatory Lenny Mena APRN.DIRECTOR DIVERSITY Work Phone: [facility] [place] Comment on above: Question regarding C OMP METABOLIC PANEL Antibiotic side affe cts Start: 06-16-2024 End: 06-16-2024 Patient encounter procedure Jordan Bajwa APRN.DIRECTOR DIVERSITY Work Phone: [place] [facility] Comment on above: Rhinosinusitis (Prim helene Dx) Start: 06-13-2024 End: 06-13-2024 ambulatory Chiara Pedersen APRN.DIRECTOR DIVERSITY Work Phone: [facility] Comment on above: Urinalysis questions and symptoms Start: 06-13-2024 End: 08-04-2024 Telephone encounter Annie Justin MD Work Phone: [facility] Comment on above: Patient Question Results; Appointment (lvm for patient to call so we can get her appointmemt rescheduled with dr quintanilla) Start: 06-12-2024 End: 06-12-2024 Patient encounter procedure Gris Miller APRN.DIRECTOR DIVERSITY Work Phone: [facility] [place] [facility] Comment on above: Urinary frequency (P rimary Dx); Sore throat; Acute cystitis with hematuria; Viral URI with cough Start: 05-30-2024 End: 06-01-2024 Refill Lizet Brown PA-C Work Phone: [facility] Comment on above: Refill Request Start: 05-23-2024 End: 05-23-2024 Subsequent hospital visit by physician [facility] Work Phone: Radiology Comment on above: Elevated alkaline ph osphatase level [R74.8] Start: 05-19-2024 End: 05-19-2024 Patient encounter procedure Francesca Sen PA-C [facility] Phone[facility] Comment on above: Multiple sclerosis ( HCC) (Primary Dx); Adult ADHD; Headaches; Elevated alkaline phosphatase level; Paresthesia of both lower extremities; Chronic constipation Start: 05-17-2024 End: 05-17-2024 Office outpatient visit 25 minutes Lenny Mena APRN.DIRECTOR DIVERSITY Work Phone: [facility] Comment on above: Adult ADHD (Primary Dx); Elevated serum creatinine; Elevated alkaline phosphatase level Start: 05-12-2024 ambulatory Lizet Xiong-C Work Phone: [facility] Comment on above: Blood test Start: 05-12-2024 End: 05-12-2024 Patient encounter procedure Sendy Puri APRN.BRANDON Work Phone: OB/Gynecology Comment on above: Encounter for gyneco logical examination (general) (routine) without abnormal findings (Primary Dx); Encounter for screening for human papillomavirus (HPV); Screening for malignant neoplasm of cervix Start: 05-12-2024 End: 05-12-2024 Patient encounter status Sendy Puri APRN.DIRECTOR DIVERSITY Work Phone: [facility] Start: 05-10-2024 Refill Lenny OSBORNE RN.[facility] Work Phone: [facility] Comment on above: Refill Request Start: 04-19-2024 End: 04-19-2024 ambulatory Chiara Blood PT Work Phone: [facility] Start: 04-19-2024 End: 04-19-2024 Patient encounter procedure Chiara Gaglione PT Work Phone: [facility] Comment on above: Impaired functional mobility, balance, gait, and endurance (Primary Dx); Multiple sclerosis (HCC) Start: 04-01-2024 End: 04-01-2024 ambulatory Infusion [facility] 11 Work Phone: Multiple Sclerosis Comment on above: Multiple sclerosis ( HCC) (Primary Dx); Vitamin D deficiency Start: 03-31-2024 End: 03-31-2024 ambulatory Lizet Brown PA-C Work Phone: [facility] Comment on above: Skin rash (Primary D x); Multiple sclerosis (HCC); Muscle spasm of back Start: 03-31-2024 End: 03-31-2024 Telemedicine consultation with patient Lizet Brown PA-C Work Phone: [facility] Start: 03-18-2024 Orders Only Lizet Brown P A-C Work Phone: [facility] Comment on above: Multiple sclerosis ( HCC) (Primary Dx); Vitamin D deficiency Start: 03-17-2024 Orders Only Lizet Brown P A-C Work Phone: [facility] Comment on above: Multiple sclerosis ( HCC) (Primary Dx) Start: 03-09-2024 Refill Lizet Brown P A-C Work Phone: [facility] Comment on above: Refill Request Start: 02-13-2024 Refill Lizet Brown P A-C Work Phone: [facility] Comment on above: Refill Request Start: 02-12-2024 Refill Lizet Brown P A-C Work Phone: [facility] Comment on above: Refill Request Start: 02-05-2024 ambulatory Lizet Brown P A-C Work Phone: [facility] Comment on above: Mary Appts Start: 01-18-2024 Telephone encounter Lenny gold APRN.DIRECTOR DIVERSITY Work Phone: [facility] Comment on above: Insurance Authorizat ion Start: 12-20-2023 Refill Lizet Brown P A-C Work Phone: [facility] Comment on above: Refill Request Start: 12-13-2023 Refill Lizet Brown P A-C Work Phone: [facility] Comment on above: Refill Request Start: 12-08-2023 Refill Chiara Pedersen APRN.DIRECTOR DIVERSITY Work Phone: [facility] [place] Comment on above: Refill Request Start: 11-16-2023 ambulatory Lizet Young P A-C Work Phone: [facility] Comment on above: Upcoming pain manage ment appt question Start: 11-12-2023 E-mail encounter nunu m caregiver [facility] Provider KATHARINA CALLAHAN [facility] Start: 11-12-2023 Patient encounter procedure [facility] Provider Pain Management Comment on above: Instructions for you r upcoming appointment Start: 09-17-2023 End: 09-17-2023 Subsequent hospital visit by physician [facility] Work Phone: Radiology Comment on above: Acute cough [R05.1] Start: 09-17-2023 End: 09-17-2023 Patient encounter procedure Jory Fox PA Work Phone: [place] [facility] Comment on above: Sinobronchitis (Prim helene Dx); Acute cough Start: 09-07-2023 Refill Lizet Luis A-C Work Phone: [facility] Comment on above: Refill Request Start: 07-03-2023 Telephone encounter Lizet matt PA-C Work Phone: [facility] Comment on above: Appointment (LVM FOR PATIENT TO CALL SO WE CAN GET HER SCHEDULED FOR A CONSULT TO PSYCHOLOGY ) Start: 06-14-2023 Refill Lenny OSBORNE RN.DIRECTOR DIVERSITY Work Phone: [facility] Comment on above: Refill Request Start: 05-18-2023 Refill Lizet Luis A-C Work Phone: [facility] Comment on above: Refill Request Start: 04-12-2023 Refill Annie marie MD Work Phone: [facility] Comment on above: Refill Request Start: 04-03-2023 Telephone encounter Lizet matt PA-C Work Phone: Neurology Comment on above: Appointment (Called to schedule health psychology appt per Lizet hinds msg request, lvm with phone number to call when ready to schedule ) Start: 04-02-2023 End: 04-02-2023 Patient encounter procedure Lizet Brown PA-C Work Phone: [facility] Comment on above: Urinary frequency (P rimary Dx); Multiple sclerosis (HCC); Muscle spasm of back Start: 04-02-2023 End: 04-02-2023 ambulatory Infusion [facility] 3 Work Phone: Multiple Sclerosis Comment on above: Multiple sclerosis ( HCC) (Primary Dx) Start: 04-01-2023 Telephone encounter Angelique mcgowan Research Coordinator [facility] Comment on above: Research F/U Start: 03-18-2023 Telephone encounter Angelique mcgowan Research Coordinator [facility] Comment on above: Research F/U Start: 03-05-2023 ambulatory Lizet Luis A-C Work Phone: [facility] Comment on above: Appt needed? Start: 01-20-2023 ambulatory Arlyn Gomez MD, PhD Work Phone: [facility] Comment on above: Possible flare/relap se Start: 12-25-2022 End: 12-25-2022 ambulatory Lizet Brown PA-C Work Phone: [facility] Comment on above: Dysesthesia (Primary Dx); Multiple sclerosis (HCC) Start: 12-25-2022 End: 12-25-2022 Telemedicine consultation with patient Lizet Brown MARTHA-C Work Phone: [facility] Start: 12-17-2022 Refill Chiara Pedersen APRN.CNP Work Phone: [facility] Comment on above: Refill Request Start: 12-17-2022 Refill Arlyn Gomez MD, PhD Work Phone: [facility] Comment on above: Refill Request Start: 12-15-2022 Refill Arlyn Gomez MD, PhD Work Phone: [facility] Comment on above: Refill Request Start: 11-17-2022 End: 11-17-2022 Patient encounter procedure Jordan Bajwa APRN.CNP Work Phone: [facility] [place] [facility] Comment on above: Sore throat (Primary Dx); URI, acute Start: 11-10-2022 Refill Chiara Pedersen APRN.CNP Work Phone: [facility] [place] Comment on above: Refill Request Start: 10-16-2022 End: 10-16-2022 ambulatory Infusion [facility] 6 Work Phone: Multiple Sclerosis Comment on above: Multiple sclerosis ( HCC) (Primary Dx) Start: 10-09-2022 Chart abstracting Ralf Familiapaulino roslyn Research Coordinator [facility] Start: 10-02-2022 End: 10-02-2022 ambulatory Infusion [facility] 6 Work Phone: Multiple Sclerosis Comment on above: Multiple sclerosis ( HCC) (Primary Dx) Start: 09-23-2022 Orders Only Arlyn Gomez MD, PhD Work Phone: [facility] Start: 09-16-2022 Telephone encounter Annie fernando MD Work Phone: [facility] [place] Comment on above: Insurance Authorizat ion (Aderall ) Start: 09-15-2022 End: 09-15-2022 Patient encounter procedure Chiara Pedersen APRN.DIRECTOR DIVERSITY Work Phone: [facility] [place] Comment on above: Adult ADHD Start: 09-15-2022 Telephone encounter Annie fernando MD Work Phone: [facility] [place] Comment on above: Insurance Authorizat ion; Opened In Error Start: 08-15-2022 End: 08-15-2022 Subsequent hospital visit by physician [facility] Work Phone: Radiology Comment on above: Pelvic pain [R10.2] Start: 08-14-2022 Refill Annie marie MD Work Phone: [facility] [place] Comment on above: Refill Request Start: 08-13-2022 Refill Arlyn Gomez MD, PhD Work Phone: [facility] Comment on above: Refill Request Start: 08-11-2022 End: 08-11-2022 Office outpatient visit 15 minutes Kelly Chavez APRN.DIRECTOR DIVERSITY Work Phone: [facility] [place] Comment on above: UTI symptoms (Primar y Dx); Pelvic pain Start: 08-09-2022 Refill Kaylee jameson MEDICAL HISTORIAN.DIRECTOR DIVERSITY Work Phone: Neurology Comment on above: Refill Request Start: 07-10-2022 End: 07-10-2022 ambulatory Arlyn Gomez MD, PhD Work Phone: [facility] Comment on above: Multiple sclerosis ( HCC) (Primary Dx); 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)] Start: 07-10-2022 End: 07-10-2022 Telemedicine consultation with patient Arlyn Gomez MD, PhD Work Phone: [facility] Start: 07-09-2022 Refill Arlyn Gomez MD, PhD Work Phone: [facility] Comment on above: Refill Request Start: 06-20-2022 End: 06-20-2022 Subsequent hospital visit by physician Arlyn Gomez MD, PhD Work Phone: Radiology Comment on above: Demyelinating diseas e of central nervous system (HCC) [G37.9] Start: 06-02-2022 ambulatory Arlyn Gomez MD, PhD Work Phone: [facility] Comment on above: MRI scheduling Start: 05-29-2022 End: 05-29-2022 Patient encounter procedure Arlyn Gomez MD, PhD Work Phone: [facility] Comment on above: 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); Tingling; Memory difficulties; White matter abnormality on MRI of brain; Migraine without aura and without status migrainosus, not intractable; Diarrhea, unspecified type; Vitamin D deficiency; Multiple sclerosis (HCC); Muscle spasm of back; Demyelinating disease of central nervous system (HCC) Start: 05-23-2022 End: 05-23-2022 ambulatory Kaylee Huerta APRN.DIRECTOR DIVERSITY Work Phone: Neurology Comment on above: Migraine without aur a and without status migrainosus, not intractable (Primary Dx); Chronic nonintractable headache, unspecified headache type; Memory difficulties Refill Request Start: 05-23-2022 End: 05-23-2022 Telemedicine consultation with patient Kaylee Huerta DAWSON.DIRECTOR DIVERSITY Work Phone: [facility] Start: 05-21-2022 End: 05-21-2022 Subsequent hospital visit by physician Mri Carter Miller(Istat/Lg Br/1.5t) Work Phone: Radiology Comment on above: Demyelinating diseas e of central nervous system (HCC) [G37.9] Start: 05-17-2022 Chart abstracting Annie dowd MD Work Phone: [facility] Comment on above: external document Start: 05-16-2022 End: 05-16-2022 Emergency department patient visit [facility] Start: 04-24-2022 ambulatory Kaylee Jeanneyennifer trino OSMAN.DIRECTOR DIVERSITY Work Phone: Neurology Comment on above: MRI Results Start: 04-23-2022 End: 04-23-2022 Subsequent hospital visit by physician Mri [facility] (I-Stat/1.5t) Work Phone: Radiology Comment on above: Memory difficulties [R41.3] Start: 04-16-2022 Refill Lenny OSBORNE RN.DIRECTOR DIVERSITY Work Phone: [facility] Comment on above: Refill Request Start: 04-16-2022 Refill Lenny OSBORNE RN.DIRECTOR DIVERSITY Work Phone: [facility] Comment on above: Refill Request Start: 04-10-2022 End: 04-10-2022 Patient encounter procedure Kaylee Huerta MEDICAL HISTORIAN.DIRECTOR DIVERSITY Work Phone: Neurology Comment on above: Migraine without aur a and without status migrainosus, not intractable (Primary Dx); Memory difficulties; Chronic nonintractable headache, unspecified headache type Start: 03-31-2022 End: 03-31-2022 ambulatory Chiara Pedersen APRN.BRANDON Work Phone: [facility] Comment on above: Dermatitis (Primary Dx) Start: 03-31-2022 End: 03-31-2022 Telemedicine consultation with patient Chiara Pedersen APRN.DIRECTOR DIVERSITY Work Phone: [facility] Start: 03-15-2022 Refill Lenny OSBORNE RN.DIRECTOR DIVERSITY Work Phone: [facility] Comment on above: Refill Request Start: 03-05-2022 Telephone encounter Chiara Camacho iladam MEDICAL HISTORIAN.DIRECTOR DIVERSITY Work Phone: [facility] Comment on above: Results Start: 03-05-2022 End: 03-05-2022 Subsequent hospital visit by physician [facility] Work Phone: Radiology Comment on above: Acute pain of right knee [M25.561] Start: 03-05-2022 End: 03-05-2022 Patient encounter procedure Chiara Pedersen APRN.DIRECTOR DIVERSITY Work Phone: [facility] Comment on above: Acute pain of right knee (Primary Dx) Start: 02-08-2022 Refill Annie marie MD Work Phone: [facility] Comment on above: Refill Request Start: 02-03-2022 Telephone encounter Chiara Camacho lindy MEDICAL HISTORIAN.DIRECTOR DIVERSITY Work Phone: [facility] Comment on above: Results; Orders Start: 01-07-2022 Telephone encounter Annie fernando MD Work Phone: [facility] Comment on above: Insurance Authorizat ion (Adderall) Start: 01-06-2022 Refill Annie marie MD Work Phone: [facility] Comment on above: Refill Request Start: 11-25-2021 End: 11-25-2021 Subsequent hospital visit by physician [facility] Work Phone: Radiology Comment on above: Cough [R05.9] Start: 08-13-2021 End: 08-13-2021 Subsequent hospital visit by physician [facility] [place] Work Phone: Radiology Comment on above: Pain of left thumb [ M79.645] Start: 12-26-2020 End: 12-26-2020 Subsequent hospital visit by physician [facility] Work Phone: Radiology Comment on above: Jaw pain [R68.84] Procedures Date Procedure Procedure Detail Performing Clinician Start: 04-06-2025 Blood count complete auto&auto difrntl wbc Lizet Brown PA-C Work Phone: Start: 12-02-2024 Adult depression screening assessment Chiara Pedersen APRN.DIRECTOR DIVERSITY Work Phone: Start: 10-17-2024 Radiologic exam chest 2 views Jordan Bajwa APRN.DIRECTOR DIVERSITY Work Phone: Start: 10-17-2024 STREP A MOLECULAR (POC) Jordan Bajwa APRN.DIRECTOR DIVERSITY Work Phone: Start: 10-06-2024 BRAIN & CERVICAL SPINE MRI DISCRETE DATA [facility] Provider Start: 10-06-2024 Mri brain brain stem w/o contrast material Lizet THOMAS-C Work Phone: Start: 10-06-2024 Blood count complete auto&auto difrntl wbc Lizet Brown PA-C Work Phone: Start: 10-02-2024 Urnls dip stick/tablet rgnt auto w/o microscopy Jory THOMAS Work Phone: Start: 06-21-2024 Us retroperitoneal real time w/image complete Lenny Mena APRN.DIRECTOR DIVERSITY Work Phone: Start: 06-21-2024 Liver elastography w/o imag w/i&r Bjorn Lofton MD Work Phone: Start: 06-12-2024 Urnls dip stick/tablet rgnt auto w/o microscopy Heri Cook APRN.DIRECTOR DIVERSITY Work Phone: Start: 06-12-2024 STREP A MOLECULAR (POC) Heri Cook APRN.DIRECTOR DIVERSITY Work Phone: Start: 04-01-2024 Blood count complete auto&auto difrntl wbc Lizet Brown PA-C Work Phone: Start: 10-30-2023 Adult depression screening assessment Lizet Brown PA-C Work Phone: Start: 09-17-2023 Radiologic exam chest 2 views Jory THOMAS Work Phone: Start: 04-02-2023 Blood count complete auto&auto difrntl wbc Lizet Brown PA-C Work Phone: Start: 11-17-2022 STREP A MOLECULAR (POC) [facility] Provider Start: 10-02-2022 Blood count complete auto&auto difrntl wbc Arlyn Gomez MD, PhD Work Phone: Start: 08-15-2022 Us transvaginal Kelly Chavez MEDICAL HISTORIAN.DIRECTOR DIVERSITY Work Phone: Start: 08-11-2022 Urnls dip stick/tablet rgnt auto w/o microscopy Kelly Chavez MEDICAL HISTORIAN.DIRECTOR DIVERSITY Work Phone: Start: 06-20-2022 Mri spinal canal cervical w/o contrast matrl Arlyn Gomez MD, PhD Work Phone: Start: 05-27-2022 Adult depression screening assessment Arlyn Gomez MD, PhD Work Phone: Start: 05-23-2022 Adult depression screening assessment Kaylee Huerta MEDICAL HISTORIAN.DIRECTOR DIVERSITY Work Phone: Start: 05-06-2022 Adult depression screening assessment Annie Justin MD Work Phone: Start: 04-23-2022 Mri brain brain stem w/o contrast material Kaylee Huerta MEDICAL HISTORIAN.DIRECTOR [employer] Work Phone: Start: 03-05-2022 Radiologic exam knee complete 4/more views Chiara Pedersen MEDICAL HISTORIAN.DIRECTOR [employer] Work Phone: Start: 11-25-2021 Radiologic exam chest 2 views Trish Braxton PA-C Work Phone: Start: 08-13-2021 Radex fingr minimum 2 views Kelly kemp MEDICAL HISTORIAN.DIRECTOR [employer] Work Phone: Start: 01-21-2021 Adult depression screening assessment Annie Justin MD Work Phone: Start: 12-26-2020 Radex temporomandble jt opn & clsd mouth bilat Annie Justin MD Work Phone: Start: 02-26-2011 End: 04-15-2011 H/O: section Previous section Lizet Brown PA-C Work Phone: Plan of Treatment Date Care Activity Detail Author Start: 2030 PAP TESTING PAP TESTING [facility] Start: 05-12-2027 Screening for malignant neoplasm of cervix Cervical Cancer Screening [facility] Start: 12-21-2025 HPV TESTING HPV TESTING [facility] Start: 12-21-2025 Screening for malignant neoplasm of cervix HPV Testing [facility] Start: 12-13-2025 End: 12-13-2025 Patient encounter procedure 12/13/2025 11:00 AM EDT Office Visit Gastroenterology [address] [address] Bjorn Lofton MD [address] [place] [address] Elevated alkaline phosphatase level [R74.8] Gastroenterology Comment on above: Elevated alkaline phosphatase level [R74 .8] Start: 12-02-2025 Anxiety Screening Anxiety Screening [facility] Start: 12-02-2025 Depression Screening Depression Screening [facility] Start: 10-10-2025 End: 10-10-2025 Patient encounter procedure 10/10/2025 1:45 PM EST Office Visit [facility] [address] [address] Lizet Brown PA-C [address] [place], [place] [id number] ms follow up [facility] Comment on above: ms follow up Start: 10-10-2025 End: 10-10-2025 ambulatory 10/10/2025 8:00 AM EST [facility] Multiple Sclerosis [address] [address] Multiple Sclerosis Multiple Sclerosis Comment on above: Multiple Sclerosis Start: 10-09-2025 End: 10-09-2025 Patient encounter procedure Radiology Comment on above: MRI Brain WO/W IVCON MRI CERVICAL SPINE W O/W IVCON Start: 10-03-2025 End: 10-03-2025 Patient encounter procedure 10/03/2025 11:30 AM EST Office Visit OB/Gynecology [address] [place], [place] [id number] Sendy Puri APRN.DIRECTOR [employer] [address] [place] [address] annual OB/Gynecology Comment on above: annual Start: 07-21-2025 End: 07-21-2025 Patient encounter procedure 07/21/2025 2:45 PM EDT OT/PT/Speech Visit [facility] [address] [place], [place] [phone] Kate Johnson, PT, DPT [address], [place] [phone] MS related issues [facility] Comment on above: MS related issues Start: 06-20-2025 End: 06-20-2025 Patient encounter procedure [facility] Occupational Therapy Comment on above: Start assessment for disability from wor k Start: 06-06-2025 End: 06-06-2025 Patient encounter procedure 06/06/2025 11:30 AM EDT Office Visit Gastroenterology [address] [address] Bjorn Lofton MD [address] [place], [place] [id number] Follow up visit,MyChart request Gastroenterology Comment on above: Follow up visit,MyChart request Start: 06-02-2025 End: 06-02-2025 Patient encounter procedure 06/02/2025 2:00 PM EDT Office Visit Neurology [address] [place] [address] Non restful sleep Neurology Comment on above: Non restful sleep Start: 06-01-2025 End: 2025 Comprehensive metabolic 2000 panel - Serum or Plasma COMPREHENSIVE METABOLIC PANEL Lab Routine Elevated alkaline phosphatase level Elevated serum creatinine Expected: 06/01/2025, Expires: 2025 [facility] Comment on above: Expected: 06/01/2025, Expires: Start: 05-15-2025 End: 05-15-2025 Patient encounter procedure 05/15/2025 1:00 PM EDT Office Visit OB/Gynecology [address] [place] [address] Sendy Puri APRN.DIRECTOR [employer] [address] [facility] [place] [address] annual OB/Gynecology Comment on above: annual Start: 05-09-2025 End: 05-09-2025 [facility] visit new patient 05/09/2025 12:00 PM EDT [facility] Neurology [address] [place] [address] Lena Degroot MD [address] [place] [address] New patient eval Neurology Comment on above: New patient eval Start: 04-17-2025 End: 04-17-2025 FQHC visit new patient 04/17/2025 1:00 PM EDT [facility] Dermatology [address] [address] Shahram Brooks MD [address] [place] [address] New patient eval Dermatology Comment on above: New patient eval Start: 04-06-2025 End: 07-06-2025 CD19 ABSOLUTE COUNT [facility] Work Phone: Comment on above: Expected: 04/06/2025, Expires: Start: 04-06-2025 End: 04-06-2025 Patient encounter procedure 04/06/2025 1:00 PM EDT Office Visit [facility] [address] [address] Lizet Brown PA-C [address] [place] [address] ms follow up [facility] Comment on above: ms follow up Start: 04-06-2025 End: 04-06-2025 ambulatory 04/06/2025 8:00 AM EDT [facility] Multiple Sclerosis [address] [address] Multiple Sclerosis Multiple Sclerosis Comment on above: Multiple Sclerosis Start: 03-20-2025 End: 06-19-2025 25-hydroxyvitamin D3 [Mass/volume] in Serum or Plasma VITAMIN D 25 HYDROXY Lab Routine Vitamin D deficiency Expected: 03/20/2025, Expires: 06/19/2025 [facility] Work Phone: Comment on above: Expected: 03/20/2025, Expires: Start: 12-19-2024 End: 12-19-2024 Patient encounter procedure 12/19/2024 11:30 AM EDT Office Visit Gastroenterology [address] [address] Bjorn Lofton MD [address] [place] [address] Elevated alkaline phosphatase level [R74.8] Gastroenterology Comment on above: Elevated alkaline phosphatase level [R74 .8] Start: 12-02-2024 End: 03-03-2025 QUANTITATIVE TOXICOLOGY PANEL, URINE QUANTITATIVE TOXICOLOGY PANEL, URINE Lab Routine Adult ADHD Expected: 12/02/2024, Expires: 03/03/2025 [facility] Comment on above: Expected: 12/02/2024, Expires: Start: 12-02-2024 End: 03-03-2025 TOXICOLOGY SCREEN, ROUTINE URINE TOXICOLOGY SCREEN, ROUTINE URINE Lab Routine Adult ADHD Expected: 12/02/2024, Expires: 03/03/2025 [facility] Work Phone: Comment on above: Expected: 12/02/2024, Expires: Start: 12-02-2024 End: 12-02-2024 Patient encounter procedure 12/02/2024 8:20 AM EST Office Visit Family Medicine [facility] [address] [place] [address] Chiara Pedersen, MEDICAL HISTORIAN.DIRECTOR [employer]ERSITY [address] [place] [address] 6 month follow up [facility] Comment on above: 6 month follow up Start: 11-18-2024 End: 11-18-2024 Patient encounter procedure 11/18/2024 2:00 PM EST Office Visit Family [facility] [place] [address] [place] [address] Lenny Mena, MEDICAL HISTORIAN.DIRECTOR [employer] [address] [place] [address] 6 month follow up [facility] Comment on above: 6 month follow up Start: 11-09-2024 End: 02-08-2025 Comprehensive metabolic 2000 panel - Serum or Plasma COMPREHENSIVE METABOLIC PANEL Lab Routine Elevated alkaline phosphatase level Elevated serum creatinine Expected: 11/09/2024 (Approximate), Expires: 02/08/2025 [facility] Work Phone: Comment on above: Expected: 11/09/2024 (Approximate), Expi res: 02/08/2025 Start: 10-30-2024 Anxiety Screening Anxiety Screening [facility] Start: 10-30-2024 Covid-19 Vaccine (#1) Covid-19 Vaccine (#1) [facility] Comment on above: Postponed from 02/28/1989 (Declined at t his time) Start: 10-30-2024 Covid-19 Vaccine () Covid-19 Vaccine () [facility] Comment on above: Postponed from 06/05/2023 (Declined at t his time) Start: 10-30-2024 Depression Screening Depression Screening [facility] Start: 10-30-2024 Hepatitis B Vaccine (1 of 3 - 19+ 3-dose series) Hepatitis B Vaccine (1 of 3 - 19+ 3-dose series) [facility] Comment on above: Postponed from 2007 (Declined at t his time) Start: 10-30-2024 Hepatitis B Vaccine (1 of 3 - 3-dose series) Hepatitis B Vaccine (1 of 3 - 3-dose series) [facility] Comment on above: Postponed from 1988 (Declined at t his time) Start: 10-30-2024 Hepatitis C screening Hepatitis C Screening [facility] Comment on above: Postponed from 2006 (Declined at t his time) Start: 10-11-2024 End: 10-11-2024 Follow-up encounter 10/11/2024 1:45 PM [facility] [address] [id number] Lizet Brown PA-C [address] [place] [address] ms follow up [facility] Comment on above: ms follow up Start: 10-06-2024 End: 01-05-2025 CD19 ABSOLUTE COUNT [facility] Comment on above: Expected: 10/06/2024, Expires: 5 Start: 10-06-2024 End: 10-06-2025 IgG [Mass/volume] in Serum or Plasma [facility] Work Phone: Comment on above: Expected: 10/06/2024, Expires: Start: 10-06-2024 End: 10-06-2025 IgM [Mass/volume] in Serum or Plasma [facility] Comment on above: Expected: 10/06/2024, Expires: 6 Start: 10-06-2024 End: 10-06-2024 Patient encounter procedure Radiology Comment on above: ..MRI BRAIN WO IVCON Multiple Sclerosi s - [facility] Start: 10-06-2024 End: 10-06-2024 ambulatory 10/06/2024 8:00 AM [facility] Multiple Sclerosis [address] [place] [id number] Multiple Sclerosis Multiple Sclerosis Comment on above: Multiple Sclerosis Start: 07-21-2024 End: 07-21-2024 Patient encounter procedure [facility] Comment on above: Pain and headache relief No Mimak Ck In* Start: 07-15-2024 End: 07-15-2024 Patient encounter procedure 07/15/2024 4:[address] [facility] [address] [address] Varsha Boyle MD [address] [place] [address] : CONSULT TO [facility] Comment on above: : CONSULT TO [facility] Start: 06-21-2024 End: 06-21-2024 Patient encounter procedure Gastroenterology Comment on above: Elevated alkaline phosphatase level [R74 .8] Elevated serum creat inine [R79.89] Start: 06-07-2024 End: 06-07-2024 Follow-up encounter 06/07/2024 3:15 PM EDT [facility] [address] [address] Lizet Brown PA-C [address] [place] [address] ms follow up [facility] Comment on above: ms follow up Start: 06-05-2024 Covid-19 Vaccine ( season) Covid-19 Vaccine ( season) [facility] Start: 06-05-2024 Covid-19 Vaccine ( season) Covid-19 Vaccine ( season) [facility] Start: 06-05-2024 Influenza vaccination [facility] Start: 05-23-2024 End: 05-23-2024 Patient encounter procedure 05/23/2024 4:00 PM EDT Appointment Radiology [address] [place] [address] Elevated alkaline phosphatase level [R74.8] Radiology Comment on above: Elevated alkaline phosphatase level [R74 .8] Start: 05-19-2024 End: 05-19-2024 Patient encounter procedure 05/19/2024 3:00 PM EDT Office Visit [facility] [address] [facility] [address] [place] [address] Francesca Sen PA-C [address] [place] [address] Symptoms from MS [facility] Comment on above: Symptoms from MS Start: 05-17-2024 End: 08-16-2024 ALK PHOS ISOENZYM BL ALK PHOS ISOENZYM BL Lab Routine Elevated alkaline phosphatase level Expected: 05/17/2024, Expires: 08/16/2024 [facility] Comment on above: Expected: 05/17/2024, Expires: Start: 05-17-2024 End: 08-16-2024 Comprehensive metabolic 2000 panel - Serum or Plasma COMPREHENSIVE METABOLIC PANEL Lab Routine Elevated serum creatinine Elevated alkaline phosphatase level Expected: 05/17/2024, Expires: 08/16/2024 [facility] Comment on above: Expected: 05/17/2024, Expires: Start: 05-17-2024 End: 08-16-2024 Urinalysis complete panel - Urine URINALYSIS, WITH MICROSCOPIC Lab Routine Elevated serum creatinine Expected: 05/17/2024, Expires: 08/16/2024 [facility] Comment on above: Expected: 05/17/2024, Expires: Start: 05-17-2024 End: 05-17-2024 Patient encounter procedure 05/17/2024 11:00 AM EDT Office Visit Family Medicine [facility] [address] [place] [address] Lenny Mena, MEDICAL HISTORIAN.DIRECTOR [employer] [address] [place] [address] 6 month ADHD [facility] Comment on above: 6 month ADHD Start: 05-12-2024 End: 05-12-2024 Patient encounter procedure 05/12/2024 11:30 AM EDT Office Visit OB/Gynecology [address] [place] [address] Sendy Puri, MEDICAL HISTORIAN.DIRECTOR [employer] [address] [place] [address] Annual exam OB/Gynecology Comment on above: Annual exam Start: 04-03-2024 Influenza vaccination Influenza Vaccine (#1) [facility] Comment on above: Postponed from 06/05/2023 (Declined at t his time) Start: 04-01-2024 End: 07-01-2024 CD19 ABSOLUTE COUNT [facility] Comment on above: Expected: 04/01/2024, Expires: Start: 04-01-2024 End: 04-01-2025 IgG [Mass/volume] in Serum or Plasma [facility] Work Phone: Comment on above: Expected: 04/01/2024, Expires: Start: 04-01-2024 End: 04-01-2025 IgM [Mass/volume] in Serum or Plasma [facility] Comment on above: Expected: 04/01/2024, Expires: 5 Start: 04-01-2024 End: 04-01-2024 ambulatory 04/01/2024 12:30 PM EDT [facility] Multiple Sclerosis [address] [place] [phone] Multiple Sclerosis Multiple Sclerosis Comment on above: Multiple Sclerosis Start: 03-31-2024 End: 03-31-2024 ambulatory 03/31/2024 9:30 AM EDT [address] [address] Lizet Brown PA-C [address] [place] [address] [facility] Comment on above: Multiple Sclerosis Start: 03-18-2024 End: 06-17-2024 25-hydroxyvitamin D3 [Mass/volume] in Serum or Plasma VITAMIN D 25 HYDROXY Lab Routine Vitamin D deficiency Expected: 03/18/2024, Expires: 06/17/2024 [facility] Comment on above: Expected: 03/18/2024, Expires: Start: 03-18-2024 End: 06-17-2024 CBC W Auto Differential panel - Blood COMPLETE BLOOD COUNT AND DIFFERENTIAL Lab Routine Multiple sclerosis ([facility]) Expected: 03/18/2024, Expires: 06/17/2024 [facility] Work Phone: Comment on above: Expected: 03/18/2024, Expires: Start: 03-18-2024 End: 06-17-2024 Comprehensive metabolic 2000 panel - Serum or Plasma COMPREHENSIVE METABOLIC PANEL Lab Routine Multiple sclerosis ([facility]) Expected: 03/18/2024, Expires: 06/17/2024 [facility] Comment on above: Expected: 03/18/2024, Expires: Start: 03-18-2024 End: 06-17-2024 IgG [Mass/volume] in Serum or Plasma IMMUNOGLOBULIN G Lab Routine Multiple sclerosis ([facility]) Expected: 03/18/2024, Expires: 06/17/2024 [facility] Comment on above: Expected: 03/18/2024, Expires: Start: 03-18-2024 End: 06-17-2024 IgM [Mass/volume] in Serum or Plasma IMMUNOGLOBULIN M Lab Routine Multiple sclerosis ([facility]) Expected: 03/18/2024, Expires: 06/17/2024 [facility] Comment on above: Expected: 03/18/2024, Expires: Start: 12-22-2023 PAP TESTING PAP TESTING [facility] Start: 12-22-2023 Screening for malignant neoplasm of cervix [facility] Start: 09-15-2023 COVID-19 VACCINE (#1) COVID-19 VACCINE (#1) [facility] Comment on above: Postponed from 02/28/1989 (Declined at t his time) Start: 09-15-2023 HEPATITIS B (1 of 3 - 3-dose series) HEPATITIS B (1 of 3 - 3-dose series) [facility] Comment on above: Postponed from 1988 (Declined at t his time) Start: 09-15-2023 Hepatitis B Vaccine (1 of 3 - 3-dose series) Hepatitis B Vaccine (1 of 3 - 3-dose series) [facility] Comment on above: Postponed from 1988 (Declined at t his time) Start: 09-15-2023 HEPATITIS C SCREENING HEPATITIS C SCREENING [facility] Comment on above: Postponed from 2006 (Declined at t his time) Start: 06-05-2023 Influenza vaccination [facility] Start: 05-27-2023 Adult depression screening assessment DEPRESSION SCREENING [facility] Start: 05-23-2023 Adult depression screening assessment DEPRESSION SCREENING [facility] Start: 05-06-2023 Adult depression screening assessment DEPRESSION SCREENING [facility] Start: 04-03-2023 Influenza vaccination INFLUENZA (#1) [facility] Comment on above: Postponed from 06/05/2022 (Declined at t his time) Start: 04-02-2023 End: 06-02-2023 CD19 ABSOLUTE COUNT [facility] Work Phone: Comment on above: Expected: 04/02/2023, Expires: Start: 12-25-2022 End: 02-24-2023 CBC W Auto Differential panel - Blood CBC + DIFF Lab Routine Multiple sclerosis ([facility]) Expected: 12/25/2022, Expires: 02/24/2023 [facility] Work Phone: Comment on above: Expected: 12/25/2022, Expires: Start: 12-25-2022 End: 02-24-2023 Comprehensive metabolic 2000 panel - Serum or Plasma COMP METABOLIC PANEL Lab Routine Multiple sclerosis ([facility]) Expected: 12/25/2022, Expires: 02/24/2023 [facility] Work Phone: Comment on above: Expected: 12/25/2022, Expires: 3 Start: 12-25-2022 End: 02-24-2023 IgG [Mass/volume] in Serum or Plasma IGG Lab Routine Multiple sclerosis ([facility]) Expected: 12/25/2022, Expires: 02/24/2023 [facility] Work Phone: Comment on above: Expected: 12/25/2022, Expires: 3 Start: 12-25-2022 End: 02-24-2023 IgM [Mass/volume] in Serum or Plasma IGM Lab Routine Multiple sclerosis ([facility]) Expected: 12/25/2022, Expires: 02/24/2023 [facility] Work Phone: Comment on above: Expected: 12/25/2022, Expires: 3 Start: 10-05-2022 DEPRESSION ASSESSMENT DEPRESSION ASSESSMENT [facility] Start: 07-10-2022 End: 09-09-2022 25-hydroxyvitamin D3 [Mass/volume] in Serum or Plasma VITAMIN D 25 HYDROXY Lab Routine Multiple sclerosis ([facility]) Expected: 07/10/2022, Expires: 09/09/2022 [facility] Work Phone: Comment on above: Expected: 07/10/2022, Expires: 2 Start: 07-10-2022 End: 09-09-2022 BLOOD TB SCREEN BLOOD TB SCREEN Lab Routine Multiple sclerosis ([facility]) Expected: 07/10/2022, Expires: 09/09/2022 [facility] Work Phone: Comment on above: Expected: 07/10/2022, Expires: 2 Start: 07-10-2022 End: 09-09-2022 CBC W Auto Differential panel - Blood CBC + DIFF Lab Routine Multiple sclerosis ([facility]) Expected: 07/10/2022, Expires: 09/09/2022 [facility] Work Phone: Comment on above: Expected: 07/10/2022, Expires: 2 Start: 07-10-2022 End: 09-09-2022 SMASHER HAND DEMYELINATING DISEASE EVALUATION, SERUM SMASHER HAND DEMYELINATING DISEASE EVALUATION, SERUM Lab Routine Multiple sclerosis ([facility]) Expected: 07/10/2022, Expires: 09/09/2022 [facility] Work Phone: Comment on above: Expected: 07/10/2022, Expires: 2 Start: 07-10-2022 End: 09-09-2022 Comprehensive metabolic 2000 panel - Serum or Plasma COMP METABOLIC PANEL Lab Routine Multiple sclerosis ([facility]) Expected: 07/10/2022, Expires: 09/09/2022 [facility] Work Phone: Comment on above: Expected: 07/10/2022, Expires: 2 Start: 07-10-2022 End: 09-09-2022 IgG [Mass/volume] in Serum or Plasma IGG Lab Routine Multiple sclerosis ([facility]) Expected: 07/10/2022, Expires: 09/09/2022 [facility] Work Phone: Comment on above: Expected: 07/10/2022, Expires: 2 Start: 07-10-2022 End: 09-09-2022 IgM [Mass/volume] in Serum or Plasma IGM Lab Routine Multiple sclerosis ([facility]) Expected: 07/10/2022, Expires: 09/09/2022 [facility] Work Phone: Comment on above: Expected: 07/10/2022, Expires: 2 Start: 07-10-2022 End: 09-09-2022 VARICELLA ZOSTER IGG VARICELLA ZOSTER IGG Lab Routine Multiple sclerosis ([facility]) Expected: 07/10/2022, Expires: 09/09/2022 [facility] Work Phone: Comment on above: Expected: 07/10/2022, Expires: 2 Start: 06-05-2022 Influenza vaccination [facility] Start: 05-06-2022 End: 07-06-2022 VITAMIN D 25 HYDROXY VITAMIN D 25 HYDROXY Lab Routine Vitamin D deficiency Expected: 05/06/2022, Expires: 07/06/2022 [facility] Work Phone: Comment on above: Expected: 05/06/2022, Expires: 2 Start: 02-02-2022 Urine microalbumin profile [facility] Start: 01-21-2022 Adult depression screening assessment DEPRESSION SCREENING [facility] Start: 10-05-2021 DEPRESSION ASSESSMENT DEPRESSION ASSESSMENT [facility] Start: 2015 HPV Vaccine (1 - 3-dose SCDM series) HPV Vaccine (1 - 3-dose SCDM series) [facility] Start: 2007 Hepatitis B Vaccine (1 of 3 - 19+ 3-dose series) Hepatitis B Vaccine (1 of 3 - 19+ 3-dose series) [facility] Start: 2006 Anxiety Screening Anxiety Screening [facility] Start: 2006 Depression Screening Depression Screening [facility] Start: 2006 HEPATITIS C SCREENING HEPATITIS C SCREENING [facility] Start: 2006 Hepatitis C screening Hepatitis C Screening [facility] Start: 1993 COVID-19 VACCINE (#1) COVID-19 VACCINE (#1) [facility] Start: 1993 COVID-19 VACCINE (1) COVID-19 VACCINE (1) [facility] Start: 02-28-1989 COVID-19 VACCINE (#1) COVID-19 VACCINE (#1) [facility] Start: 1988 HEPATITIS B (1 of 3 - 3-dose series) HEPATITIS B (1 of 3 - 3-dose series) [facility] Start: 1988 Hepatitis B Vaccine (1 of 3 - 3-dose series) Hepatitis B Vaccine (1 of 3 - 3-dose series) [facility] 25-hydroxyvitamin D3 [Mass/volume] in Serum or Plasma VITAMIN D 25 HYDROXY Lab Routine Vitamin D deficiency 04/01/2024 10:14 AM EDT [facility] Bacteria identified in Urine by Culture URINE CULTURE Microbiology Routine UTI symptoms 08/11/2022 3:07 PM EST [facility] Work Phone: Bacteria identified in Urine by Culture URINE CULTURE Microbiology Routine Urinary frequency Ordered: 06/12/2024 [facility] Work Phone: Comment on above: Ordered: 06/12/2024 Bacteria identified in Urine by Culture URINE CULTURE Microbiology Routine Dysuria 10/02/2024 3:43 PM EST [facility] Work Phone: BACTERIAL VAGINOSIS NAAT BACTERIAL VAGINOSIS NAAT Lab Routine Vaginal itching 10/02/2024 3:44 PM EST [facility] ANNETTE/TRICHOMONAS NAAT ANNETTE/TRICHOMONAS NAAT Lab Routine Vaginal itching 10/02/2024 3:44 PM EST [facility] End: 06-21-2025 Comprehensive metabolic 2000 panel - Serum or Plasma COMPREHENSIVE METABOLIC PANEL Lab Routine Elevated alkaline phosphatase level Every 3 months for 4 Occurrences starting 06/21/2024 until 06/21/2025, 1 completed [facility] Work Phone: Comment on above: Every 3 months for 4 Occurrences startin g 06/21/2024 until 06/21/2025, 1 completed End: 04-16-2025 MR Brain WO contrast MRI BRAIN WO IVCON Radiology Routine Multiple sclerosis (HCC) 1 Occurrences starting 03/17/2024 until 04/16/2025 [facility] Work Phone: Comment on above: 1 Occurrences starting 03/17/2024 until 04/16/2025 End: 05-06-2026 MR Brain WO contrast MRI BRAIN WO IVCON Radiology Routine Multiple sclerosis (HCC) 1 Occurrences starting 04/06/2025 until 05/06/2026 [facility] Work Phone: Comment on above: 1 Occurrences starting 04/06/2025 until 05/06/2026 End: 05-06-2026 MR Cervical spine WO contrast MRI CERVICAL SPINE WO IVCON Radiology Routine Multiple sclerosis (HCC) 1 Occurrences starting 04/06/2025 until 05/06/2026 [facility] Comment on above: 1 Occurrences starting 04/06/2025 until 05/06/2026 End: 05-10-2023 Mri brain brain stem w/o contrast material MRI BRAIN WO IVCON Radiology Routine Memory difficulties Migraine without aura and without status migrainosus, not intractable Chronic nonintractable headache, unspecified headache type 1 Occurrences starting 04/10/2022 until 05/10/2023 [facility] Work Phone: Comment on above: 1 Occurrences starting 04/10/2022 until 05/10/2023 End: 05-21-2022 Mri spinal canal cervical w/o & w/contr matrl MRI CERVICAL SPINE WO/W IVCON Radiology Routine Demyelinating disease of central nervous system (HCC) 1 Occurrences starting 05/21/2022 until 05/21/2022 [facility] Work Phone: Comment on above: 1 Occurrences starting 05/21/2022 until 05/21/2022 End: 06-28-2023 Mri spinal canal cervical w/o contrast matrl MRI CERVICAL SPINE WO IVCON Radiology Routine Demyelinating disease of central nervous system (HCC) 1 Occurrences starting 05/29/2022 until 06/28/2023 [facility] Work Phone: Comment on above: 1 Occurrences starting 05/29/2022 until 06/28/2023 End: 05-21-2022 Mri spinal canal thoracic w/o & w/contr matrl MRI THORACIC SPINE WO/W IVCON Radiology Routine Demyelinating disease of central nervous system (HCC) 1 Occurrences starting 05/21/2022 until 05/21/2022 [facility] Work Phone: Comment on above: 1 Occurrences starting 05/21/2022 until 05/21/2022 End: 11-20-2023 OCT NEURO INST OCT NEURO INST OPHT Imaging Routine Afferent pupillary defect of right eye 1 Occurrences starting 05/29/2022 until 11/20/2023 [facility] Work Phone: Comment on above: 1 Occurrences starting 05/29/2022 until 11/20/2023 PAP TEST PAP TEST Lab Daisy wagner Encounter for screening for human papillomavirus (HPV) Screening for malignant neoplasm of cervix 05/12/2024 12:08 PM EDT [facility] Work Phone: Patient Education ED Diarrhea, U nknown Cause [facility] Work Phone: Patient referral [facility] Work Phone: STREP A MOLECULAR (POC) STREP A MOLECULAR (POC) Microbiology Routine Sore throat Ordered: 11/17/2022 [facility] Work Phone: Comment on above: Ordered: 11/17/2022 End: 06-16-2025 US Abdomen RUQ US ABD RIGHT UPPER QUADRANT Radiology Routine Elevated alkaline phosphatase level 1 Occurrences starting 05/17/2024 until 06/16/2025 [facility] Work Phone: Comment on above: 1 Occurrences starting 05/17/2024 until 06/16/2025 US Abdomen RUQ US ABD RIGHT UPP ER QUADRANT Radiology Routine Elevated alkaline phosphatase level 05/23/2024 4:15 PM EDT [facility] Work Phone: End: 07-20-2025 US Kidney - bilateral and Urinary bladder US KIDNEY/BLADDER Radiology Routine Elevated serum creatinine 1 Occurrences starting 06/20/2024 until 07/20/2025 [facility] Work Phone: Comment on above: 1 Occurrences starting 06/20/2024 until 07/20/2025 End: 09-10-2023 Us transvaginal US FEMALE PELVIS TRANSVAG Radiology Routine Pelvic pain 1 Occurrences starting 08/11/2022 until 09/10/2023 [facility] Work Phone: Comment on above: 1 Occurrences starting 08/11/2022 until 09/10/2023 [facility] Immunizations Immunization Date Immunization Notes Care Provider Onelia dumont 12-24-2016 influenza virus vaccine, unspecified formulation Lizet Brown PA-C Work Phone: [facility] 02-03-2012 tetanus toxoid, reduced diphtheria toxoid, and acellular pertussis vaccine, adsorbed Annie Justin MD Work Phone: [facility] Work Phone: 08-17-2009 novel [id number], all formulations Annie Justin MD Work Phone: [facility] Payers Date Payer Category Payer Private Health Insurance AET[employer] A ETNA CHOICE POS II [id number] 2014-Present [phone] [address] [place] [address] POS [id number] 2014 Private Health Insurance [id number] 2014 Private Health Insurance [id number] Self-pay SELF PAY INSURANCE [id number] Social History Date Type Detail Facility Start: 02-11-2011 End: 05-29-2022 Tobacco smoking status NHIS Never smoked tobacco [facility] Start: 12-03-2021 End: 05-09-2025 Alcohol intake Current non-drinker of alcohol (finding) [facility] Start: 12-21-2020 End: 09-15-2022 History SDOH Social Connections Phone 5 [facility] Start: 12-21-2020 End: 09-15-2022 History SDOH Social Connections Get Together 3 [facility] Start: 12-21-2020 End: 09-15-2022 History SDOH Social Connections Membership 1 [facility] Start: 12-21-2020 End: 09-15-2022 History SDOH Physical Activity DPW 2 [facility] Start: 12-21-2020 End: 09-15-2022 History SDOH Physical Activity MPS 6 [facility] Start: 1990 Sex Assigned At Not on file [facility] Start: 11-26-2020 End: 09-04-2022 Exposure to SARS-CoV-2 (event) Not sure [facility] Start: 05-16-2022 Tobacco smoking stat us NHIS Unknown if ever smoked [facility] Work Phone: Start: 11-03-2019 Non-smoker [facility] Work Phone: Start: 1990 Sex Assigned At Female W [facility] Work Phone: Start: 02-11-2011 End: 05-29-2022 Tobacco use and exposure Smokeless tobacco non-user [facility] Work Phone: Start: 05-29-2022 History SDOH Alcohol Comment 1/mo [facility] Start: 09-15-2022 History SDOH Social Connections Get Together 4 [facility] Start: 09-15-2022 End: 02-27-2023 [facility] Start: 09-15-2022 End: 02-27-2023 Social connection and isolation panel [facility] Do you belong to any clubs or organizations such as presybeterian groups, unions, fraternal or athletic groups, or school groups? Yes [facility] Are you now , , , , never or living with a partner? [facility] How often to you hav e a drink containing alcohol? Monthly or less [facility] How many standard dr inks containing alcohol do you have on a typical day? 1 or 2 [facility] How often do you hav e 6 or more drinks on 1 occasion? Never [facility] Start: 09-05-2012 How hard is it for y ou to pay for the very basics like food, housing, medical care, and heating Not hard at all [facility] Do you feel stress - tense, restless, nervous, or anxious, or unable to sleep at night because your mind is troubled all the time - these days [OSQ] Not at all [facility] (I/We) worried roderick er (my/our) food would run out before (I/we) got money to buy more. Never true [facility] In the past 12 month s, was there a time when you were not able to pay the mortgage or rent on time? No [facility] How often to you hav e a drink containing alcohol? 2-4 times a month [facility] How many standard dr inks containing alcohol do you have on a typical day? 3 or 4 [facility] How often do you hav e 6 or more drinks on 1 occasion? Less than monthly [facility] How hard is it for y ou to pay for the very basics like food, housing, medical care, and heating Somewhat hard [facility] Do you feel stress - tense, restless, nervous, or anxious, or unable to sleep at night because your mind is troubled all the time - these days [OSQ] To some extent [facility] Do you feel stress - tense, restless, nervous, or anxious, or unable to sleep at night because your mind is troubled all the time - these days [OSQ] Only a little [facility] Functional Status Date Assessment Result Facility 11-01-2014 Are you deaf, or do you have serious difficulty hearing No 11/01/2014 9:34 AM Rowan Khan MA No [facility] 11-01-2014 Are you blind, or do you have serious difficulty seeing, even when wearing glasses No 11/01/2014 9:34 AM Rowan Khan MA No [facility] 11-01-2014 Do you have serious difficulty walking or climbing stairs No 11/01/2014 9:34 AM Rowan Khan MA No [facility] 11-01-2014 Do you have difficul ty dressing or bathing No 11/01/2014 9:34 AM Rowan Khan MA No [facility] 11-01-2014 Because of a physica l, mental, or emotional condition, do you have difficulty doing errands alone such as visiting a physician's office or shopping No 11/01/2014 9:34 AM Rowan Khan MA [facility] Mental Status Date Assessment Result Facility 11-01-2014 Because of a physica l, mental, or emotional condition, do you have serious difficulty concentrating, remembering, or making decisions No 11/01/2014 9:34 AM Rowan Khan MA [facility] Clinical Notes 02-26-2011 to 06-20-2025 Kate Craft OTR/L - 06/20/2025 1:51 PM Jose Angel Brown - 06/07/2025 9:59 AM Jose Angel Brown - 06/06/2025 4:03 PM Galilea Ford - 06/01/2025 2:49 PM EDTPatient Instructions Note Date & Type Note Facility 06-20-2025 Note HNO ID: [id number] Author: KATE CRAFT OTR/L Service: ? Author Type: Occupational Therapist Type: Progress Notes Filed: 06/21/2025 08:29 Note Text: [facility] NEURO FUNCTIONAL CAPACITY EVALUATION GENERAL RECORD INFORMATION CURRENT VISIT NUMBER: 1 of ONSET:11/30/2024 1st:06/20/2025ert Date:06/20/2025 THERAPISTS NAME: ZULEMA Guerrero INSURANCE TYPE: Payor: AETNA / Plan: AETNA POS / Product Type: POS / REFERRING PROVIDER: Lizet Brown PA-C PLAN OF CARE: 06/20/2025 Patient identified by name and date: Yes PRINCIPAL NEUROLOGIC DIAGNOSIS: multiple sclerosis DISEASE SUMMARY Date of onset: 2019 Date of diagnosis of MS: NA Disease course at onset: Relapsing-Remitting Current disease course: Progressive with relapses Previous disease therapies: NA Current disease therapy: Ocrevus (started 10/02/22) Most recent MRI brain: 10/06/24 Most recent MRI cervical spine: 02/27/23 Most recent MRI thoracic spine:10/02/23 CSF: NA VZV serology result and date: NA AQP4-IgG: NA MOG-IgG: NA SUBJECTIVE: Isac Peres is a 34 year old female referred for a Functional Capacity Evaluation by the health care provider listed above to determine readiness for return to work and suggest reasonable accommodations or to assess vocational ability and potentially assist patient with disability application to [employer] ([employer]). Current functional limitations: work limitations due to memory deficits, severe fatigue, lower extremity and upper extremity right sided weakness, right exertional foot drop, difficulty with balance, difficulty with stairs, activity tolerance Subjective level of fatigue prior to FCE: 4/10 (0 = full of energy, 10 = too tired to move) Is the patient having any pain? Yes LOCATION: right upper extremity and bilateral lower extremities and headache PAIN SCALE: 2 on a scale of 0-10 PAIN CHARACTER: aching and soreness DURATION: (How long have you had the pain?) a few months FREQUENCY: (How often does the pain occur?) occurs constantly Changes between arms and legs AGGRAVATING FACTORS: activity and walking ALLEVIATING FACTORS: medication; lotion (THC in lotion); ice (0 = no pain, 10 = worst pain you've ever experienced/ER visit) Patient's prior level of function: Isac reports in 2019 she's started having symptoms that mimiced RA or fibromyalgia. She was put on medicine and this was not working. She started having headaches and word finding difficulty and she went to see Neurology. It was recommended to have a MRI and showed lesions. She was sent to the [facility] and was diagnosed with MS. Started utilizing a foot brace after PT consult in 2023. Current status is steady decline Patient / Caregiver Goals: Patient presents today for functional capacity evaluation to assess work readiness and/or accommodations for safe and independent fulfillment of work duties Social / Living Situation: Isac lives with spouse and 14 and 15 year old children. They reside in their personal residence with 3 steps to manage from outside of her home. She has 1st floor setup with tub/shower combo Current Income derived from: [employer] Home Equipment: None Bracing: OTC Foot Drop Brace Current exercise program consists of: None Driving: driving with difficulty at night and when severely fatigued Safety concerns regarding living situations and safety at home: No Falls Assessment: Two or more falls in the last year. EDUCATION LEVEL: High School; Some College EMPLOYMENT: What past or current work accommodations has the patient implemented? 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 Comp?: NA Duties and responsibilities: (high school students) Working with children in classroom; helping children in the bathroom and changing diapers; feedings Previous treatment: Neuro Rehab: Outpatient PT PAST MEDICAL HISTORY Diagnosis Date Adjustment disorder with depressed mood Dysmenorrhea Encounter for insertion or removal of intrauterine contraceptive device 06/12/2011 Multiple sclerosis (HCC) Unspecified asthma(493.90) SPORTS INDUCED, NO PROBLEMS SINCE AGE 16 PAST SURGICAL HISTORY Procedure Laterality Date DELIVERY ONLY 11/11/2009 DELIVERY ONLY 03/31/11 , low transverse ESOPHAGOGASTRODUODENOSCOPY TRANSORAL DIAGNOSTIC 02/18/2018 EGD HYSTEROSCOPY 06/10/2016 in office to remove IUD INSERTION OF IUD 06/2011, 06/10/2016 LAPS SURG CHOLECYSTECTOMY W/CHOLANGIOGRAPHY 01/25/10 Normal IOC PAST SURGICAL HISTORY OF DIAG (more content not included)... [facility] 06-20-2025 History of Present illness Narrative [facility] NEURO FUNCTIONAL CAPACITY EVALUATION GENERAL RECORD INFORMATION CURRENT VISIT NUMBER: ONSET:11/30/2024 1st:06/20/2025ert Date:06/20/2025 THERAPISTS NAME: Kate Craft, OTR/L INSURANCE TYPE: Payor: AETNA / Plan: AETNA POS / Product Type: POS / REFERRING PROVIDER: Lizet Brown PA-C PLAN OF CARE: 06/20/2025 Patient identified by name and date: Yes PRINCIPAL NEUROLOGIC DIAGNOSIS: multiple sclerosis DISEASE SUMMARY Date of onset: 2019 Date of diagnosis of MS: NA Disease course at onset: Relapsing-Remitting Current disease course: Progressive with relapses Previous disease therapies: NA Current disease therapy: Ocrevus (started 10/02/22) Most recent MRI brain: 10/06/24 Most recent MRI cervical spine: 02/27/23 Most recent MRI thoracic spine:10/02/23 CSF: NA VZV serology result and date: NA AQP4-IgG: NA MOG-IgG: NA SUBJECTIVE: Isac Peres is a 34 year old female referred for a Functional Capacity Evaluation by the health care provider listed above to determine readiness for return to work and suggest reasonable accommodations or to assess vocational ability and potentially assist patient with disability application to [employer] ([employer]). Current functional limitations: work limitations due to memory deficits, severe fatigue, lower extremity and upper extremity right sided weakness, right exertional foot drop, difficulty with balance, difficulty with stairs, activity tolerance Subjective level of fatigue prior to FCE: 4/10 (0 = full of energy, 10 = too tired to move) Is the patient having any pain? Yes LOCATION: right upper extremity and bilateral lower extremities and headache PAIN SCALE: 2 on a scale of 0-10 PAIN CHARACTER: aching and soreness DURATION: (How long have you had the pain?) a few months FREQUENCY: (How often does the pain occur?) occurs constantly Changes between arms and legs AGGRAVATING FACTORS: activity and walking ALLEVIATING FACTORS: medication; lotion (THC in lotion); ice (0 = no pain, 10 = worst pain you've ever experienced/ER visit) Patient's prior level of function: Isac reports in 2018 she's started having symptoms that mimiced RA or fibromyalgia. She was put on medicine and this was not working. She started having headaches and word finding difficulty and she went to see Neurology. It was recommended to have a MRI and showed lesions. She was sent to the [facility] and was diagnosed with MS. Started utilizing a foot brace after PT consult in 2023. Current status is steady decline Patient / Caregiver Goals: Patient presents today for functional capacity evaluation to assess work readiness and/or accommodations for safe and independent fulfillment of work duties Social / Living Situation: Isac lives with spouse and 14 and 15 year old children. They reside in their personal residence with 3 steps to manage from outside of her home. She has 1st floor setup with tub/shower combo Current Income derived from: [employer] Home Equipment: None Bracing: OTC Foot Drop Brace Current exercise program consists of: None Driving: driving with difficulty at night and when severely fatigued Safety concerns regarding living situations and safety at home: No Falls Assessment: Two or more falls in the last year. EDUCATION LEVEL: High School; Some College EMPLOYMENT: What past or current work accommodations has the patient implemented? 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) Working with children in classroom; helping children in the bathroom and changing diapers; feedings Previous treatment: Neuro Rehab: Outpatient PT PAST MEDICAL HISTORY Diagnosis Date Adjustment disorder with depressed mood Dysmenorrhea Encounter for insertion or removal of intrauterine contraceptive device 06/12/2011 Multiple sclerosis (HCC) Unspecified asthma(493.90) SPORTS INDUCED, NO PROBLEMS SINCE AGE 16 PAST SURGICAL HISTORY Procedure Laterality Date DELIVERY ONLY 11/11/2009 DELIVERY ONLY 03/31/11 , low transverse ESOPHAGOGASTRODUODENOSCOPY TRANSORAL DIAGNOSTIC 02/18/2018 EGD HYSTEROSCOPY 06/10/2016 in office to remove IUD INSERTION OF IUD 06/2011, 06/10/2016 LAPS SURG CHOLECYSTECTOMY W/CHOLANGIOGRAPHY 01/25/10 Normal IOC PAST SURGICAL HISTORY OF DIAGNOSTIC LAPAROSCOPY UNSPECIFIED ORAL SURGERY PROCEDURE, BY REPORT wisdom teeth removed Current Outpatient Medications on File Prior to Visit Medication Sig Cholecalciferol, Vitamin D3, 125 mcg (5,000 unit) cap Take 1 capsule by mouth once daily. hydroquinone (ELDOQUIN FORTE) 4 % cream Use on dark spots every night for up to 3 months, take a 1 month break, then repeat cycle as needed tretinoin (RETIN-A) 0.025 % topical cream Apply a tiny (pea-sized) amount to the entire face three times weekly x for 1 week, then every other night for 1-2 weeks, then increase to nightly as tolerated gabapentin (NEURONTIN) 300 mg capsule TAKE 2 CAPSULES BY MOUTH THREE TIMES DAILY. MAY TAKE ADDITIONAL CAP NEEDED FOR PAIN amphetamine-dextroamphetamine XR (ADDERALL XR) 30 mg capsule Take 1 capsule by mouth once daily for 30 days. Patient should start on April 12, 2025. amphetamine-dextroamphetamine XR (ADDERALL XR) 30 mg capsule Take 1 capsule by mouth once daily for 30 days. Patient should start on May 12, 2025. amphetamine-dextroamphetamine XR (ADDERALL XR) 30 mg capsule Take 1 capsule by mouth once daily for 30 days. amantadine HCl (SYMMETREL) 100 mg capsule Take 1 capsule by mouth twice daily baclofen 10 mg tablet Take 1 tablet by mouth in the evening and 3 tablet at bedtime SUMAtriptan (IMITREX) 100 mg tablet Take 1 tablet (100 mg) by mouth as needed for migraine headache (see administration instructions). START AT ONSET OF HEADACHE. MAY REPEAT DOSE AFTER 2 HOURS. albuterol HFA (PROVENTIL HFA, VENTOLIN HFA) 90 mcg/actuation inhaler Inhale 2 Puffs as instructed every 4 hours as needed for wheezing/shortness of breath. ocrelizumab (OCREVUS INTRAVENOUS) Inject intravenously once every 6 months. No current facility-administered medications on file prior to visit. Genito urinary: Bladder: hesitancy, urgency Gastrointestinal: Bowel: Constipation and Diarrhea Neuropsychological: Depression: does not acknowledge depression but mood swings Memory: Poor short term and Poor correction Concentration: Misplacing objects, Trouble multitasking, Losing train of thought, and Trouble finding words Do you have concerns regarding exposure to: Heights? patient does not feel confident on ladders Temperature extremes? Heat causes core to feel on fire; increased confusion and chest tightness. Cold causes difficulty getting warm. OBJECTIVE MEASURES WITH LEVEL OF FUNCTION: Vital Signs: Blood Pressure:122/74 mmHg Heart Rate:106 bpm Communication:WNL Range of Motion: Bilateral upper and lower extremities WNL except as indicated. AROM R AROM L Shoulder Abduction WFL WFL Shoulder Flexion WFL WFL Ankle Dorsiflexion WFL WFL STRENGTH: Isac Peres is right-handed RIGHT LEFT Shoulder Abd 5/5 5/5 Shoulder Flexion 4/5 4/5 Elbow Flexion 4+/5 4+/5 Elbow extension 4/5 4/5 Wrist flexion 4+/5 4+/5 Wrist extension 5/5 5/5 Factorer strength (Arnel position 2) 39 lbs 45 lbs Hip abduction 4/5 4+/5 Hip flexion 4/5 5/5 Hip extension 4+/5 4+/5 Knee extension 5/5 5/5 Knee flexion 5/5 5/5 Ankle DF 4-/5 4+/5 Ankle PF 5/5 5/5 MODIFIED VERONICA SCALE: shoulder flexor: RT: 0 & LT: 0 shoulder extensors: RT: 0 & LT: 0 elbow flexors: RT: 0 & LT: 0 elbow extensors: RT: 0 & LT: 0 wrist flexors: RT: 0 & LT: 0 wrist extensors: RT: 0 & LT: 0 plantar flexor: RT: 0 & LT: 1 knee extensors: RT: 0 & LT: 0 knee flexors: RT: 0 & LT: 0 hip adductors: RT: 0 & LT: 0 Scoring 0: No increase in muscle tone 1: Slight increase in muscle tone, with a catch and release or minimal resistance at the end of the range of motion when an affected part(s) is moved in flexion or extension 1+: Slight increase in muscle tone, manifested as a catch, followed by minimal resistance through the remainder (less than half) of the range of motion 2: A marked increase in muscle tone throughout most of the range of motion, but affected part(s) are still easily moved 3: Considerable increase in muscle tone, passive movement difficult 4: Affected part(s) rigid in flexion or extension Torres Balance Scale: Sit to stand: 4 = able to stand without using hands and stabilize independently Standing unsupported: 4 = able to stand safely 2 minutes Sittin = able to sit safely and securely for 2 minutes Stand to sit: 4 = sits safely with minimal use of hands Transfers: 4 = able to transfer safely with minor use of hands Standing unsupported w/eyes closed: 4 = able to stand 10 seconds safely Standing unsupported w/feet together: 4 = able to place feet together independently and stand for 1 minute safely Reaching forward: 4 = can reach forward confidently > 10 inches Picking up object from floor: 4 = able to scrap picker object safely and easily Looking over shoulder: 1 = needs supervision when turning Turn 360 degrees: 3 = able to turn 360* safetly one side only in 4 seconds or less Alternate foot on step: 4 = able to stand independently and safely and complete 8 steps in 20 seconds Tandem standin = able to place foot tandem independently and hold 30 seconds Standing on le = able to lift leg independently and hold > 10 seconds Total: 51/56 on 06/20/2025 >45 Safe ambulation, no assistive device >35 Safe ambulation, with assistive device A score greater than or equal to 45 identifies individuals who are not at risk for falling Dynamic Gait Index: Gait level surface: 2 Mild impairment - walks 20' uses assistive device, slower speed, mild gait deviation Change in gait speed: 2 Mild impairment - is able to change speed but demonstrates mild gait deviations, or no gait deviations but unable to achieve a significant change in velocity, or uses an assistive device Gait and horizontal head turns: 2 Mild impairment - performs R/L head turns smooth with slight change in gait velocity, minor disruption to smooth gait path, or uses assistive device Gait with vertical head turns: 3 Normal - performs up/down head turns smoothly with no change in gait Gait and pivot turns: 3 Normal - pivot turns safely within 3 secs, stops quickly, no loss of balance Step over obstacle: 2 Mild impairment - is able to step over box, but must slow down and adjust steps to clear box safely Step around obstacles: 3 Normal - able to walk around cones safely without changing gait speed, no evidence of imbalance Steps: 2 Mild impairment - alternating feet, must use rail Total: Scores less than or equal to 19 out of 24 suggest increased fall risk GAIT and Ambulation: Level of assistance: None Assistive device used: None Gait deviations noted: right foot drag at around ~90 seconds during 6-Minute Walk test; decreased speed at 2 minutes of 6-Minute Walk test; lateral sway Stairs: must use rails, reciprocal pattern 25 Foot Walk: 7.70 seconds on 06/20/2025 Timed Up and Go: 11.4 seconds on 06/20/2025 Norms: Age 30-39: 5.39 +/- 0.23 seconds 6 Minute Walk Test: 1025 feet on 06/20/2025 Norms: Height 63; Weight 200lbs Female [phone] to [phone] meters Female [phone] to 2035.157091 feet Male [phone] [phone] meters Male 1713.879968 3265.981674 feet After completion of balance/walking PAIN = 3/10 FATIGUE = 6/10 SENSATION: decreased sensation/light touch in right upper extremity and lower extremity COORDINATION: Nine-Hole peg test: Right 21.80, 19.20 seconds; CV = 6.3415 % Left 21.30, 20.20 seconds; CV = 2.6506 % Norms for a 34 year old female are: R = 16.4 sec with a standard deviation of 1.6; L = 17.3 sec with a standard deviation of 2.0 AVERAGE PERFORMANCE OF NORMAL FEMALES ON THE NINE HOLE PEG TEST (Time in Seconds) AGE HAND MEAN SD 20-24 R 15.8 2.1 L 17.2 2.4 25-29 R 15.8 2.2 L 17.2 2.1 30-34 R 16.3 1.9 L 17.8 2.0 35-39 R 16.4 1.6 L 17.3 2.0 40-44 R 16.8 2.1 L 18.6 2.8 45-49 R 17.3 2.0 L 18.4 1.9 50-54 R 18.0 2.5 L 20.1 3.0 55-59 R 17.8 2.6 L 19.4 2.3 60-64 R 18.4 2.0 L 20.6 2.2 65-69 R 19.5 2.3 L 21.4 2.7 70-74 R 20.2 2.7 L 22.0 2.7 75+ R 21.5 2.9 L 24.6 4.3 ALL FEMALE R 17.9 2.8 SUBJECTS L 19.6 3.4 HAND TESTS: 5 position Arnel R L pos 1 41 36 pos 2 44 54 pos 3 36 39 pos 4 41 48 pos 5 38 40 YES Valid YES Valid Right cigar wrapper best result: 44 lbs; percentile rank = less than 10 % Left cigar wrapper best result: 54 lbs; percentile rank = 25 % Tremors?: NA Hand Factorer Norms: MALE Percentile - lbs. FEMALE Percentile - lbs. AGE HAND 10 25 50 75 90 10 25 50 75 90 20-24 D 91 102 121 150 167 46 57 70 87 95 N 71 84 105 133 150 33 44 61 78 88 25-29 D 78 94 121 144 158 48 58 75 89 97 N 77 90 111 129 139 48 54 64 85 97 30-34 D 70 90 122 152 170 46 58 79 115 137 N 64 81 110 132 145 36 48 68 97 115 35-39 D 76 93 120 155 176 50 59 74 90 99 N 73 88 113 141 157 49 55 66 82 91 40-44 D 84 96 117 147 165 38 50 70 91 103 N 73 88 113 141 157 35 45 62 82 94 45-49 D 65 82 110 138 155 39 48 62 86 100 N 58 74 101 138 160 37 44 56 73 83 50-54 D 79 92 114 137 151 38 49 66 79 87 N 70 82 102 128 143 35 43 57 69 76 55-59 D 59 75 101 134 154 33 42 57 75 86 N 43 58 83 111 128 31 37 47 65 76 60-64 D 51 66 90 119 137 37 44 55 69 77 N 27 46 77 101 116 29 35 46 59 66 Typing Test: Typing test duration: 5 minute(s) Typing Speed: 32 WPM Errors: 0 Adjusted Typing Speed: 32 WPM Result: Average (Hung: 0-24 Slow 25-44 Average 45-60 Fluent 61-80 Fast 81+ Pro) Additional observations: REPETITIVE MOTION TESTS: PRE-TEST PAIN = 3/10 Reachin/20 reps, last 10 in 47 sec. Crepitus: 2/4; Pain: 4/10; Fatigue? 7/10 Bendin/20 reps, last 10 in 66 sec; Pain: 4/10; Fatigue? 7.5/10 Squattin/20 reps, last 10 in 64 sec. Crepitus: 3/4; Pain 7/10; Fatigue? 8.5/10 (Crepitus: 0 - no crepitus, 1 - one pop, 2 - minimal popping, 3 - moderate popping, 4 - severe popping) POST-TEST PAIN = 7/10 MATERIAL HANDLING ACTIVITIES: (testing max lift in each position) Infrequent Occasional Frequent Constant TORSO LIFT 20 lbs 15 lbs 10 lbs 5 lbs LEG LIFT 25 lbs 20 lbs 15 lbs 10 lbs 12 LIFT 15 lbs 10 lbs 5 lbs 0 lbs SHOULDER LIFT 15 lbs 10 lbs 5 lbs 0 lbs OVERHEAD LIFT 10 lbs 5 lbs 0 lbs 0 lbs 30' CARRYING 25 lbs 20 lbs 15 lbs 10 lbs Occasional Material Handling ([facility]) Tests: PRE TEST PAIN = 7/10; FATIGUE = 8.5/10 The demonstrated result is summarized in the charts below (in the assessment portion). POST TEST PAIN = 4/10; FATIGUE = 9/10 Vision: history of diplopia; uses contacts 20/20 on R; 20/20 on L without corrective lenses on a Visual Acuity Test STEP TEST: Isac Peres is asked to step up/down a 6 inch step at a pace of 24 steps/min for 3 minutes. Pre-Test HR: 112 bpm 60 seconds Post Test Blood Pressure 118/84 Heart Rate 119 bpm HR 60 sec Post: Excellent <84 bpm; Very good 85-94 bpm; Fair 95-114; Poor 115-124; Very Poor >124 Able to complete the 3 minute test? No; Pain = 4.5/10; Fatigue = 9/10 Observations: ceased testing at 1:46 into task Constant standing/walking test: Isac Peres is asked to walk 50 feet and stand and complete one page of the questionnaires below. This sequence repeats itself 8 times. PRE TEST FATIGUE RATIN/10; Pain = 4.5/10 POST TEST FATIGUE RATIN/10; Pain = 3/10 Observations: Due to severe fatigue, unable to complete questionnaires while standing/walking QUESTIONNAIRES: Brief Pain Inventory - Short Form: Pain Severity Score = Mean of items 3-6 = 5/10 Pain Interference Score = Mean of items 9A-9G (interference of pain with: general activity, mood, walking, normal work, relations, sleep, enjoyment of life) = 6/10 Worst pain score: 8/10; (mild pain (1 - 4), moderate pain ( 5 - 6), severe pain (7 - 10)) Pain drawing = stabbing front of head; numbness in right arm, bilateral lower extremities and burning at bilateral feet and bilateral hands SPECIAL LIBRARIAN-12 = 41/60 Fatigue Severity Scale (FSS) = 6.88/7.00 (People with depression alone score about 4.5, but people with fatigue related to MS, SLE or CFIDS average about 6.5) MFIS: 60/84 PHQ-9: 15/27 (1-4 minimal depression, 5-9 mild, 10-14 moderate, 15-19 moderately severe, 20-27 severe) Symbol Digit Modalities Test: Raw Score: 55/55 ; Interpretation: The score is 0.0 (Scores more than 1.5 standard deviations below the mean for the patient's age and level of education are indicative of possible cerebral dysfunction) ASSESSMENT: YES NO 1. Is the Pain in proportion to Movement Patterns? X 2. Are Movement Patterns consistent with Distraction? X 4. Is Pain Drawing Scored Low (< 3)? X 5 . Is the 5 position ARNEL valid? (allow one outlier B) X 6. Are ARNEL position 2 CV's < 15% X 7. Are 9HPT result CV's < 15% X Is the test valid? X YES (All yes or <=2 no s ) NO (>=6 No) EQUIVOCAL (3-5 no ) Isac Peres was able to complete all aspects of today's exam that were requested by the examiner. The observed behaviors were consistent with the subjective reports and the results of this FCE are considered to be valid. There is no evidence of symptom magnification. Disability criteria is based on Social Security Disability Insurance (SSDI) guidelines (revised by [employer]SA in 07/2016). During this functional capacity evaluation, there is evidence of the following: A. Disorganization of motor function in two extremities (see 11.00D1), resulting in an extreme limitation (see 11.00D2) in the ability to stand up from a seated position, balance while standing or walking, or use the upper extremities? NO B. Marked limitation (see 11.00G2) in physical functioning (see 11.00G3a)? YES and in one of the following: Understanding, remembering, or applying information (see 11.00G3b(i))? Interacting with others (see 11.00G3b(ii))? Concentrating, persisting, or maintaining pace (see 11.00G3b(iii))? YES Adapting or managing oneself (see 11.00G3b(iv))? C. Visual impairments with either best corrected vision in the better eye of 20/200 or less, marked contraction of peripheral visual perry to 10 or less from the point of fixation, or visual efficiency in the better eye of 20% or less? NO Vocational Questions: 1. 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 X Agree Disagree 2. In a work environment, it is anticipated that Isac Peres would be able to stand/walk while maintaining attention for at least 6 hours per day. Agree X Disagree 3. In a work environment, it is anticipated that Isac Peres would need to take unscheduled breaks on a daily basis to rest due to her condition, taking her off task more than six minutes per hour. X Agree Disagree 4. In a work environment, it is anticipated that Isac Peres would need to take multiple unscheduled breaks on a daily basis due to bladder urgency and frequency. Agree X Disagree 5. Isac Peres s complaints of fatigue are consistent with the neurologic fatigue associated with a diagnosis of multiple sclerosis. X Agree Disagree 6. In a work environment, it is anticipated that Isac Peres would need to take multiple unscheduled breaks on a daily basis due to chronic and progressive multiple sclerosis fatigue. X Agree Disagree Physical factors that impair Isac Peres's ability to work include: 1. Gait has evidence of mild to moderate impairment 2. Balance has evidence of mild to moderate impairment as indicated by a score of 51/56 on Torres Balance Test and 20/24 on Dynamic Gait Index indicating patient at low risk for falls 3. Standing/walking tolerance has evidence of mild to moderate impairment as indicated by total distance traveled of 1025 feet during 6 Minute Walk Test compared to age related normative values of 1418-4386 feet. 4. Bowel function has minimal impairment 5. Bladder function has minimal impairment 6. Sensation testing has evidence of minimal impairment affecting the right claudia side 7. Fatigue of motor function was assessed during this exam and there is severe impairment noted. 8. Pain is mild to moderate 9. Vision is wfl 10. Coordination of the upper extremities is within functional limits 11. Heat sensitivity requiring cooling equipment during testing and seated rest breaks during multiple test Isac Peres completed a variety of questionnaires today as a part of this exam. Based on the PHQ-9 Isac Peres has a moderately severe level of depression. Based on the MFIS and the FSS Isac Peres has a severe level of fatigue. This was consistent with the observations during this exam. Based on the multiple pain questionnaires Isac Peres experiences moderate pain. The locations of the pain include head, right upper extremity, bilateral hips, hands and feet. Current functional abilities are as follows: I. MATERIAL HANDLING ACTIVITIES: Infrequent Occasional Frequent Constant TORSO LIFT 20 lbs 15 lbs 10 lbs 5 lbs LEG LIFT 25 lbs 20 lbs 15 lbs 10 lbs 12 LIFT 15 lbs 10 lbs 5 lbs 0 lbs SHOULDER LIFT 15 lbs 10 lbs 5 lbs 0 lbs OVERHEAD LIFT 10 lbs 5 lbs 0 lbs 0 lbs 30' CARRYING 25 lbs 20 lbs 15 lbs 10 lbs II. NON-MATERIAL HANDLING ACTIVITIES: Never Infrequent Occasional Frequent Constant SITTING X STANDING X WALKING X BENDING X REACHING OVERHEAD X SQUATTING X CRAWLING X CLIMBING STAIRS X III. SPECIAL ACTIVITIES (Y/N) ARM CONTROLS FOOT CONTROLS LEFT N N RIGHT N N COMMENTS: NO elevated platforms; NO ladders. IV. HAND FUNCTION (Y/N) ASSEMBLY SIMPLE GRASP FINE WORK HI-SPD LO-SPD LEFT N N N N RIGHT N N N N Typing: Average V. Conclusion: Isac Peres presents with a diagnosis of Multiple Sclerosis with symptoms of impaired sensation, right lower extremity and upper extremity weakness, severe fatigue and pain that limits her ability to perform work related task and decreases her quality of life. She reports inability to perform daily life duties once returning home from work due to fatigue and increased falls due to exertional foot drop. These deficits were noted during today's evaluation and severely impact her ability to perform occupational demands. Based on the criteria that this test assesses, Isac Peres is not qualified to work under even the least restrictive Dictionary of Occupational Titles (DOT) classification of sedentary physical demands. Based on the findings during this FCE, I also recommend: 1. Neuro Specific Physical Therapy 2. Cooling Equipment 3. Social Work consult to assist with applying for disability Thank you for the opportunity to assist you in the evaluation of this patient. Treatment and Billing: Total time: 180 minutes Total Units: 12 units: 173-187 mins Physical Performance Test (33904) Skilled Intervention: Neurologically-based functional capacity evaluation specific to the diagnosis of Multiple Sclerosis. Proper administration and selection of physical performance test based on clinical presentation, deficits, and needs. Kate Craft OTR/L documented in this encounter [facility] 06-15-2025 Note HNO ID: [id number] Author: ANGELA QUINTANILLA PSYD Service: ? Author Type: Psychologist Type: Progress Notes Filed: 06/15/2025 15:04 Note Text: [facility] BEHAVIORAL MEDICINE FOLLOW-UP BILLING PROVIDER: Angela Quintanilla PsyD Patient: Isac Peres CCF#: [id number] Neurology Team: Patricia/Kevin Spouse: Remigio I have communicated my name and active licensure. The patient's identity and physical location (see EMR for home address) were verified at the time of this visit. Either the patient or their legal sales representative health insurance has been informed of the risks and benefits of -- and alternatives to -- treatment through a remote evaluation and consents to proceed with the evaluation remotely. The patient was given a copy of the consent form and the limits of confidentiality. Upon completion of risk/benefit analysis, the patient's presenting problem and apparent condition are considered appropriate for virtual format. The patient does appear to have sufficient knowledge and skills in the use of relevant technology to benefit from virtual format. Platform: [employer] Isac Peres was seen for 54 min on June 15, 2025. Patient was seen alone for follow-up. SUBJECTIVE: -She is in her fourth week of school, which has been fatiguing. She described being intentional about taking breaks as she can and swapping duties at work as she is able to make sure she does not overdo it. Provided support and encouragement and reviewed fatigue cycle in MS. -Her daughter just got her intermodal truck driver's permit, this has allowed them to carpool and assisted in fatigue management. -She has felt increasingly close with her daughter as she is able to share her experiences. -Thought recording themes: gait/balance frustration with herself, embarrassment, missing kids events, what she is missing out on. Engaged in thought identification/acknowledgement, will continue to explore and monitor with goal of evaluation and reframing. 04/11/2025 05/16/2025 06/13/2025 PHQ-9 Score 14 14 14 (0-4) minimal depression (5-9) mild depression (10-14) moderate depression (15-19) moderately severe depression (20-27) severe depression 04/11/2025 05/16/2025 06/13/2025 SHABNAM - 7 SCORES Score 9 9 6 (0-5) mild anxiety (6-10) moderate anxiety (11-15) moderately severe anxiety (16-21) severe anxiety OBJECTIVE: MENTAL STATUS EXAMINATION: Appearance: Well dressed, well groomed Behavior: Behaves appropriately during the encounter Social Relatedness: Euthymic Speech/Language: The patient demonstrates appropriate tone, prosody, benson, phonetics, and syntax Mood: euthymic Affect: Full and appropriate to topic Orientation: Person, Place, Time and Situation Associations: Intact and linear Hallucinations: None Delusions: None Suicidal Ideation: No suicidal ideation, intent or plan. Homicidal Ideation: No homicidal ideation, intent or plan. Insight: Appropriate Judgment: Appropriate ASSESSMENT: Ms. Isac Peres is a 34 year old female diagnosed with MS. She presented to treatment with concerns regarding MS symptoms impacting her mood. Patient was open to treatment focusing on stress AND fatigue management. This plan was developed in conjunction with the patient and she agreed with its contents. DIAGNOSIS: Adjustment Disorder with Mixed Anxiety and Depressed Mood Fatigue MS TREATMENT MODALITIES: Fatigue management CBT Interpersonal therapy PROGRESS TO DATE: [facility] Progress: Stable Short Term Condition: Progress GOALS/OBJECTIVES/INTERVENTIONS: PLAN: 1) Treatment will continue to focus on acceptance and management of disease 2) Follow-up in 4-8 weeks Approximately 54 minutes were spent with the patient doing therapy. SIGNATURE: Angela Quintanilla PSYD PATIENT NAME: Isac Peres DATE: June 15, 2025 TIME: 2:[address] [facility] 06-07-2025 Note HNO ID: [id number] Author: ?, ?, ? Service: ? Author Type: ? Type: Progress Notes Filed: 06/07/2025 09:59 Note Text: Sleep Study Check-In Documentation Date: June 07, 2025 Name: Isac Peres Comments: HST was returned in working order with all sleep questionnaires Jose Angel Kim [facility] 06-07-2025 History of Present illness Narrative Sleep Study Check-In Documentation Date: June 07, 2025 Name: Isac Peres Comments: HST was returned in working order with all sleep questionnaires Jose Angel Kim Per [employer] tracking return package to be delivered to office on 06/07/25 Nomad # [id number] , date shipped out 06-01-25 [employer] ONLY Tracking mailout: [id number] Tracking return: [id number] adoc documented in this encounter [facility] 06-06-2025 Note HNO ID: [id number] Author: ?, ?, ? Service: ? Author Type: ? Type: Progress Notes Filed: 06/07/2025 09:59 Note Text: Per [employer] tracking return package to be delivered to office on 06/07/[address] [facility] 06-01-2025 Note HNO ID: [id number] Author: ?, ?, ? Service: ? Author Type: ? Type: Progress Notes Filed: 06/07/2025 09:59 Note Text: Nomad # [id number] , date shipped out 06-01-25 [employer] ONLY Tracking mailout: [id number] Tracking return: [id number] [facility] 05-29-2025 Note HNO ID: [id number] Author: ?, ?, ? Service: ? Author Type: ? Type: Progress Notes Filed: 06/07/2025 09:59 Note Text: adoc [facility] 05-16-2025 Note HNO ID: [id number] Author: ANGELA QUINTANILLA PSYD Service: ? Author Type: Psychologist Type: Progress Notes Filed: 05/16/2025 13:37 Note Text: [facility] BEHAVIORAL MEDICINE FOLLOW-UP BILLING PROVIDER: Angela Quintanilla PsyD Patient: Isac Peres CCF#: [id number] Neurology Team: Patricia/Kevin Spouse: Remigio I have communicated my name and active licensure. The patient's identity and physical location (see EMR for home address) were verified at the time of this visit. Either the patient or their legal sales representative health insurance has been informed of the risks and benefits of -- and alternatives to -- treatment through a remote evaluation and consents to proceed with the evaluation remotely. The patient was given a copy of the consent form and the limits of confidentiality. Upon completion of risk/benefit analysis, the patient's presenting problem and apparent condition are considered appropriate for virtual format. The patient does appear to have sufficient knowledge and skills in the use of relevant technology to benefit from virtual format. Platform: [employer] Isac Peres was seen for 58 min on May 16, 2025. Patient was seen alone for follow-up. SUBJECTIVE: -Isac shared that she has been working on communicating with her friends and loved ones to share how she is feeling. This was helpful with a close friend of hers, she was able to connect and be vulnerable. Provided encouragement and support. -She noted experiencing increase in physical symptoms recently, specifically significant experience of vertigo. Encouraged her to reach out to treatment team to explore/assess as needed. -Discussed thought processes that can occur with changes in functioning. Isac will record thoughts for further exploration at follow up. 04/06/2025 04/11/2025 05/16/2025 PHQ-9 Score 16 14 14 (0-4) minimal depression (5-9) mild depression (10-14) moderate depression (15-19) moderately severe depression (20-27) severe depression 05/24/2024 04/11/2025 05/16/2025 SHABNAM - 7 SCORES Score 5 9 9 (0-5) mild anxiety (6-10) moderate anxiety (11-15) moderately severe anxiety (16-21) severe anxiety OBJECTIVE: MENTAL STATUS EXAMINATION: Appearance: Well dressed, well groomed Behavior: Behaves appropriately during the encounter Social Relatedness: Euthymic Speech/Language: The patient demonstrates appropriate tone, prosody, benson, phonetics, and syntax Mood: euthymic Affect: Full and appropriate to topic Orientation: Person, Place, Time and Situation Associations: Intact and linear Hallucinations: None Delusions: None Suicidal Ideation: No suicidal ideation, intent or plan. Homicidal Ideation: No homicidal ideation, intent or plan. Insight: Appropriate Judgment: Appropriate ASSESSMENT: Ms. Isac Peres is a 34 year old female diagnosed with MS. She presented to treatment with concerns regarding MS symptoms impacting her mood. Patient was open to treatment focusing on stress AND fatigue management. This plan was developed in conjunction with the patient and she agreed with its contents. DIAGNOSIS: Adjustment Disorder with Mixed Anxiety and Depressed Mood Fatigue MS TREATMENT MODALITIES: Supportive therapy Interpersonal therapy PROGRESS TO DATE: [facility] Progress: Stable Short Term Condition: Progress GOALS/OBJECTIVES/INTERVENTIONS: PLAN: 1) Treatment will continue to focus on acceptance and management of disease 2) Encouraged her to follow up with treatment team surrounding vertigo symptoms 3) Follow-up in 4-8 weeks Approximately 58 minutes were spent with the patient doing therapy. SIGNATURE: Angela Quintanilla PSYD PATIENT NAME: Isac Peres DATE: May 16, 2025 TIME: 12:[address] [facility] 05-09-2025 Note HNO ID: [id number] Author: LENA DEGROOT MD Service: ? Author Type: Physician Type: Progress Notes Filed: 05/09/2025 12:27 Note Text: [facility] New Patient Evaluation PATIENT NAME: Isac Peres DATE OF SERVICE: May 09, 2025 I have communicated my name and active licensure. The patient's identity and physical location were verified at the time of this visit. Either the patient or their legal sales representative health insurance has been informed of the risks and benefits of -- and alternatives to -- treatment through a remote evaluation and consents to proceed with the evaluation remotely. CONSULTING PROVIDER: Lizet Brown [address] [facility] [id number] REASON FOR VISIT: Trouble sleeping at night HPI: Isac Peres is a 34 year old female with history of ADHD, MS being evaluated for trouble sleeping at night, daytime exhaustion. - Reports difficulty falling asleep, often not until 02:00 or 03:00, despite attempting to go to bed between 21:00 and 22:00. - Experiences non-restful sleep and feels exhausted throughout the day. - Previously, sleep was not restful even though she could fall asleep at more normal times. - Wakes up once or twice a week to use the bathroom and sometimes due to pain requiring repositioning. - Has a history of MS, diagnosed after experiencing severe headaches, forgetfulness, and difficulty recalling words, which led to a neurology referral and MRI revealing brain lesions. - Reports occasional snoring as noted by her , who uses a CPAP machine. - Denies grinding teeth but experiences jaw pain, attributed to a jaw injury in middle school. - Reports anxiety related to MS and daily worries but denies anxiety attacks or crippling anxiety. - Denies hallucinations, frequent nightmares, sleepwalking as an adult, and falling asleep while driving. - Reports restless legs in the evening, sometimes described as weird feelings or mild pain, leading to leg movements in bed. - Has experienced low-calvin iron levels in the past but never to the point of concern. - Denies regular daytime naps as they tend to disrupt her sleep further. - Consumes caffeine occasionally, primarily through tea and sometimes Coke, but has cut out coffee. - Family History of Sleep Apnea - Both parents have been diagnosed with sleep apnea. - Weight Changes - Reports minor weight loss over the past few months without a clear reason. 2. Sleep history: - Overall goals of treatment: Improve sleep quality and daytime alertness. - Sleep habits: - Typical bedtime: 21:00-22:00 - Typical wake time: 07:00 on days with activities, 09:00-10:00 on days without activities. - Time to fall asleep: Several hours, often until 02:00-03:00. - Nighttime awakening number: Once or twice a week. - Nap schedule: Avoids napping as it disrupts sleep further. She denies any history of parasomnias. She does not report sleep paralysis or sleep-related hallucinations or cataplexy . Patient Questionnaires Sleep Scores 05/23/2022 Sleep Questions On average, hours of sleep in 24 hours: 8 07/19/2024 PROMIS CAT Sleep Disturbance PROMIS Sleep Disturbance T-Score 58 (mild) PROMIS Sleep Disturbance Percentile 21 04/11/2025 PHQ-9 Score 14 04/06/2025 PROMIS Global Health - (T-Scores - the mean of general population = 50. Five points is a clinically meaningful difference.) Physical T-Score 34.9 Mental T-Score 36.3 OTHER RELEVANT LABS AND STUDIES: PAST MEDICAL HISTORY Diagnosis Date Adjustment disorder with depressed mood Dysmenorrhea Encounter for insertion or removal of intrauterine contraceptive device 06/12/2011 Multiple sclerosis (HCC) Unspecified asthma(493.90) SPORTS INDUCED, NO PROBLEMS SINCE AGE 16 PAST SURGICAL HISTORY Procedure Laterality Date DELIVERY ONLY 11/11/2009 DELIVERY ONLY 03/31/11 , low transverse ESOPHAGOGASTRODUODENOSCOPY TRANSORAL DIAGNOSTIC 02/18/2018 EGD HYSTEROSCOPY 06/10/2016 in office to remove IUD INSERTION OF IUD 06/2011, 06/10/2016 LAPS SURG CHOLECYSTECTOMY W/CHOLANGIOGRAPHY 01/25/10 Normal IOC PAST SURGICAL HISTORY OF DIAGNOSTIC LAPAROSCOPY UNSPECIFIED ORAL SURGERY PROCEDURE, BY REPORT wisdom teeth removed ACTIVE PROBLEM LIST Adult Adhd Multiple Sclerosis (Hcc) Allergies As of Date: 05/09/2025 (No Known Allergies) Fully Assessed 05/09/2025 CURRENT MEDICATIONS: Cholecalciferol, Vitamin D3, 125 mcg (5,000 unit) cap Take 1 capsule by mouth once daily. hydroquinone (ELDOQUIN FORTE) 4 % cream Use on dark spots every night for up to 3 months, take a 1 month break, then repeat cycle as needed tretinoin (RETIN-A) 0.025 % topical cream Apply a tiny (pea-sized) amount to the entire face three times weekly x for 1 week, then every other night for 1-2 weeks, then increase to nightly as tolerated gabapentin (NEURONTIN) 300 mg capsule TAKE 2 CAPSULES BY MOUTH THREE TIMES DAILY. (more content not included)... [facility] 05-09-2025 Telephone encounter Note Vitamin D 25 Hydroxy (ng/mL) Date Value 04/06/2025 63.7 05/17/2019 24.8 The following approved medication requests have been transmitted electronically. Requested Prescriptions Signed Prescriptions Disp Refills Cholecalciferol, Vitamin D3, 125 mcg (5,000 unit) cap 90 capsule 1 Sig: Take 1 capsule by mouth once daily. Authorizing Provider: VIRIDIANA CHAO APRN.DIRECTOR DIVERSITY [facility] 05-09-2025 Miscellaneous Notes Vitamin D 25 Hydroxy (ng/mL) Date Value 04/06/2025 63.7 05/17/2019 24.8 The following approved medication requests have been transmitted electronically. Requested Prescriptions Signed Prescriptions Disp Refills Cholecalciferol, Vitamin D3, 125 mcg (5,000 unit) cap 90 capsule 1 Sig: Take 1 capsule by mouth once daily. Authorizing Provider: VIRIDIANA CHAO APRN.DIRECTOR DIVERSITY Source : mychart from patient requesting refill. Delivery : e-script Requested Prescriptions Pending Prescriptions Disp Refills Cholecalciferol, Vitamin D3, 125 mcg (5,000 unit) cap 90 capsule 3 Sig: Take 1 capsule by mouth once daily. DX : Patient last seen: 04/06/2025 Next Appointment : 10/10/2025 Amanda Das documented in this encounter [facility] 05-09-2025 Telephone encounter Note Source : mychart from patient requesting refill. Delivery : e-script Requested Prescriptions Pending Prescriptions Disp Refills Cholecalciferol, Vitamin D3, 125 mcg (5,000 unit) cap 90 capsule 3 Sig: Take 1 capsule by mouth once daily. DX : Patient last seen: 04/06/2025 Next Appointment : 10/10/2025 Amanda Das [facility] Work Phone: 04-18-2025 Telephone encounter Note The following approved medication requests have been transmitted electronically. Requested Prescriptions Signed Prescriptions Disp Refills gabapentin (NEURONTIN) 300 mg capsule 210 capsule 5 Sig: TAKE 2 CAPSULES BY MOUTH THREE TIMES DAILY. MAY TAKE ADDITIONAL CAP NEEDED FOR PAIN Authorizing Provider: LIZET BROWN PA-C [facility] 04-18-2025 Miscellaneous Notes The following approved medication requests have been transmitted electronically. Requested Prescriptions Signed Prescriptions Disp Refills gabapentin (NEURONTIN) 300 mg capsule 210 capsule 5 Sig: TAKE 2 CAPSULES BY MOUTH THREE TIMES DAILY. MAY TAKE ADDITIONAL CAP NEEDED FOR PAIN Authorizing Provider: LIZET BROWN PA-C Source : electronic from pharmacy requesting refill. Delivery : e-script Requested Prescriptions Pending Prescriptions Disp Refills gabapentin (NEURONTIN) 300 mg capsule [Pharmacy Med Name: Gabapentin 300 MG Oral Capsule] 210 capsule 5 Sig: TAKE 2 CAPSULES BY MOUTH THREE TIMES DAILY. MAY TAKE ADDITIONAL CAP NEEDED FOR PAIN DX : Patient last seen: 04/06/2025 Next Appointment : 10/10/2025 Amanda Das documented in this encounter [facility] 04-18-2025 Telephone encounter Note Source : electronic from pharmacy requesting refill. Delivery : e-script Requested Prescriptions Pending Prescriptions Disp Refills gabapentin (NEURONTIN) 300 mg capsule [Pharmacy Med Name: Gabapentin 300 MG Oral Capsule] 210 capsule 5 Sig: TAKE 2 CAPSULES BY MOUTH THREE TIMES DAILY. MAY TAKE ADDITIONAL CAP NEEDED FOR PAIN DX : Patient last seen: 04/06/2025 Next Appointment : 10/10/2025 Amanda Das [facility] Work Phone: 04-17-2025 Telephone encounter Note Please call to schedule 3 month follow up with me, virtual or in office. Thanks! Shahram Brooks MD April 17, 2025 1:30 PM [facility] Work Phone: 04-17-2025 Miscellaneous Notes Please call to schedule 3 month follow up with me, virtual or in office. Thanks! Shahram Brooks MD April 17, 2025 1:30 PM documented in this encounter [facility] 04-17-2025 Instructions Rita Avendaño MD - 04/17/2025 1:27 PM EDT Melasma - Discussed role of genetics, hormones, and sun exposure over time Plan In the morning: - Start hydroquinone 4% topical cream every morning. Use for 3 months, then take a 1 month break. - Patient instructed to first apply a test patch by applying a thin layer of medication to a small area of unbroken skin on her arm and check in 24 hours. If irritation or blistering occurs do not use. - Before using, wash and dry area gently. - Apply a thin film to affected area and rub in gently. Avoid contact with eyes. Do not apply to open wounds or weeping areas. - Start tinted (iron oxide containing) sunscreen daily every morning ( [employer], La Beatriz Posay Ultra Sheer liquid, Alastin Hydratint, Revision Intellishade Truphysical) In the evening: - Start tretinoin 0.025% cream night. Apply a tiny (pea-sized) amount to the entire face twice a week. If not too irritating, may advance to nightly use after 2 weeks. If redness or irritation occurs, stop medication until this is resolved. When restarting, apply a smaller amount or at a lesser frequency. If you get itchy, dry, red or irritated, use an oil-free, non-comedogenic moisturizer such as cerave, cetaphil or vanicream. (Sometimes may not be covered by insurance, can use GoodRx coupon: https://www.LiveIntent.Recite Me/tretinoin) - Medications are not safe in or . Patient denies and patient to let me know if plans change. documented in this encounter [facility] 04-17-2025 History of Present illness Narrative DISTANCE HEALTH VISIT This Team Access Model visit is a virtual encounter. It required patient-provider interaction for the medical decision making as documented below. The patient was informed that the federal government is allowing healthcare providers to use private, non-secure communication applications for telehealth treatment. The patient understands that there are limitations to telemedicine compared to an in-person appointment and additional visits may be required. The patient agrees to proceed with the visit on this basis. This visit was completed virtually, using synchronous telemedicine technology ([employer]). New patient Consultation requested by Lizet Brown PA-C for an opinion regarding hair loss. My final recommendations will be communicated back to the requesting physician by way of shared Medical record or letter to requesting physician via [place] mail. CHIEF COMPLAINT: skin discoloration HISTORY OF PRESENT ILLNESS: Isac Peres is a 34 year old female here for evaluation of skin discoloration. Patient location at time of appointment [place] Location: mostly on the face but can occur on other sun exposed areas Duration: a year and a half Triggers: sun exposure Appearance: per patient dark spots on the face will become darker with white speckles within them Pertinent medical history: MS receives Ocrevus infusions Current treatment: none Previous treatments: none Personal Dermatologic History History of chronic skin disease: No Family History History of chronic skin disease: No Social History Tobacco use: No EtOh use: No or ? No Past Medical History PAST MEDICAL HISTORY Diagnosis Date Adjustment disorder with depressed mood Dysmenorrhea Encounter for insertion or removal of intrauterine contraceptive device 06/12/2011 Multiple sclerosis (HCC) Unspecified asthma(493.90) SPORTS INDUCED, NO PROBLEMS SINCE AGE 16 Medications Current Outpatient Medications Medication Sig amphetamine-dextroamphetamine XR (ADDERALL XR) 30 mg capsule Take 1 capsule by mouth once daily for 30 days. Patient should start on April 12, 2025. [START ON 05/12/2025] amphetamine-dextroamphetamine XR (ADDERALL XR) 30 mg capsule Take 1 capsule by mouth once daily for 30 days. Patient should start on May 12, 2025. amphetamine-dextroamphetamine XR (ADDERALL XR) 30 mg capsule Take 1 capsule by mouth once daily for 30 days. amantadine HCl (SYMMETREL) 100 mg capsule Take 1 capsule by mouth twice daily ubrogepant (UBRELVY) 50 mg tablet Take 1 tablet by mouth as needed (Migraine Headache). baclofen 10 mg tablet Take 1 tablet by mouth in the evening and 3 tablet at bedtime gabapentin (NEURONTIN) 300 mg capsule TAKE 2 CAPSULES BY MOUTH THREE TIMES DAILY. MAY TAKE ADDITIONAL 300 MG NEEDED FOR PAIN. (Patient not taking: Reported on 10/17/2024) SUMAtriptan (IMITREX) 100 mg tablet Take 1 tablet (100 mg) by mouth as needed for migraine headache (see administration instructions). START AT ONSET OF HEADACHE. MAY REPEAT DOSE AFTER 2 HOURS. Cholecalciferol, Vitamin D3, 125 mcg (5,000 unit) cap Take 1 capsule by mouth once daily. albuterol HFA (PROVENTIL HFA, VENTOLIN HFA) 90 mcg/actuation inhaler Inhale 2 Puffs as instructed every 4 hours as needed for wheezing/shortness of breath. ocrelizumab (OCREVUS INTRAVENOUS) Inject intravenously once every 6 months. No current facility-administered medications for this visit. Allergies ALLERGIES No Known Allergies REVIEW OF SYSTEMS: Constitutional: Denies fever, chills, unintentional weight loss. Skin as per HPI PHYSICAL EXAMINATION: VIDEO EXAM: (performed via video enabled technology) General: awake, alert, no acute distress Neuropsych: appropriate mood and affect Skin: Skin exam was performed today including the following: head and face. Pertinent findings include: - Right forehead, nasal bridge, right cheek with hyperpigmented reticulated macules and patches ASSESSMENT & PLAN: 34 year old female with: Melasma - Discussed role of genetics, hormones, and sun exposure over time - Discussed we have low suspicion this is related to Ocrevus infusions Plan In the morning: - Start hydroquinone 4% topical cream every morning. Use for 3 months, then take a 1 month break. - Patient instructed to first apply a test patch by applying a thin layer of medication to a small area of unbroken skin on her arm and check in 24 hours. If irritation or blistering occurs do not use. - Before using, wash and dry area gently. - Apply a thin film to affected area and rub in gently. Avoid contact with eyes. Do not apply to open wounds or weeping areas. - Start tinted (iron oxide containing) sunscreen daily every morning ( [employer], La Beatriz Posay Ultra Sheer liquid, Alastin Hydratint, Revision Intellishade Truphysical) In the evening: - Start tretinoin 0.025% cream night. Apply a tiny (pea-sized) amount to the entire face twice a week. If not too irritating, may advance to nightly use after 2 weeks. If redness or irritation occurs, stop medication until this is resolved. When restarting, apply a smaller amount or at a lesser frequency. If you get itchy, dry, red or irritated, use an oil-free, non-comedogenic moisturizer such as cerave, cetaphil or vanicream. - Medications are not safe in or . Patient denies and patient to let me know if plans change. - In reserve: compounded topicals, laser therapy RTC 3-4 months or sooner if needed. Rita Avendaño MD, MS, PGY3 The documentation for this note was completed by Marleny Cheung RN acting as scribe for Shahram Brooks MD. April 17, 2025 12:46 PM. Note to referring provider with thanks: Lizet Brown [id number] [id number] I agree with the Chief Complaint, ROS, and Past Histories independently gathered by the clinical manager support and the remaining scribed note accurately describes my personal service to the patient. Shahram Brooks MD April 17, 2025 documented in this encounter [facility] 04-17-2025 Note HNO ID: [id number] Author: SHAHRAM BROOKS MD Service: ? Author Type: Physician Type: Progress Notes Filed: 04/17/2025 13:35 Note Text: DISTANCE HEALTH VISIT This Team Access Model visit is a virtual encounter. It required patient-provider interaction for the medical decision making as documented below. The patient was informed that the federal government is allowing healthcare providers to use private, non-secure communication applications for telehealth treatment. The patient understands that there are limitations to telemedicine compared to an in-person appointment and additional visits may be required. The patient agrees to proceed with the visit on this basis. This visit was completed virtually, using synchronous telemedicine technology ([employer]). New patient Consultation requested by Lizet Brown PA-C for an opinion regarding hair loss. My final recommendations will be communicated back to the requesting physician by way of shared Medical record or letter to requesting physician via US mail. CHIEF COMPLAINT: skin discoloration HISTORY OF PRESENT ILLNESS: Isac Peres is a 34 year old female here for evaluation of skin discoloration. Patient location at time of appointment [place] Location: mostly on the face but can occur on other sun exposed areas Duration: a year and a half Triggers: sun exposure Appearance: per patient dark spots on the face will become darker with white speckles within them Pertinent medical history: MS receives Ocrevus infusions Current treatment: none Previous treatments: none Personal Dermatologic History History of chronic skin disease: No Family History History of chronic skin disease: No Social History Tobacco use: No EtOh use: No or ? No Past Medical History PAST MEDICAL HISTORY Diagnosis Date Adjustment disorder with depressed mood Dysmenorrhea Encounter for insertion or removal of intrauterine contraceptive device 06/12/2011 Multiple sclerosis (HCC) Unspecified asthma(493.90) SPORTS INDUCED, NO PROBLEMS SINCE AGE 16 Medications Current Outpatient Medications Medication Sig amphetamine-dextroamphetamine XR (ADDERALL XR) 30 mg capsule Take 1 capsule by mouth once daily for 30 days. Patient should start on April 12, 2025. [START ON 05/12/2025] amphetamine-dextroamphetamine XR (ADDERALL XR) 30 mg capsule Take 1 capsule by mouth once daily for 30 days. Patient should start on May 12, 2025. amphetamine-dextroamphetamine XR (ADDERALL XR) 30 mg capsule Take 1 capsule by mouth once daily for 30 days. amantadine HCl (SYMMETREL) 100 mg capsule Take 1 capsule by mouth twice daily ubrogepant (UBRELVY) 50 mg tablet Take 1 tablet by mouth as needed (Migraine Headache). baclofen 10 mg tablet Take 1 tablet by mouth in the evening and 3 tablet at bedtime gabapentin (NEURONTIN) 300 mg capsule TAKE 2 CAPSULES BY MOUTH THREE TIMES DAILY. MAY TAKE ADDITIONAL 300 MG NEEDED FOR PAIN. (Patient not taking: Reported on 10/17/2024) SUMAtriptan (IMITREX) 100 mg tablet Take 1 tablet (100 mg) by mouth as needed for migraine headache (see administration instructions). START AT ONSET OF HEADACHE. MAY REPEAT DOSE AFTER 2 HOURS. Cholecalciferol, Vitamin D3, 125 mcg (5,000 unit) cap Take 1 capsule by mouth once daily. albuterol HFA (PROVENTIL HFA, VENTOLIN HFA) 90 mcg/actuation inhaler Inhale 2 Puffs as instructed every 4 hours as needed for wheezing/shortness of breath. ocrelizumab (OCREVUS INTRAVENOUS) Inject intravenously once every 6 months. No current facility-administered medications for this visit. Allergies ALLERGIES No Known Allergies REVIEW OF SYSTEMS: Constitutional: Denies fever, chills, unintentional weight loss. Skin as per HPI PHYSICAL EXAMINATION: VIDEO EXAM: (performed via video enabled technology) General: awake, alert, no acute distress Neuropsych: appropriate mood and affect Skin: Skin exam was performed today including the following: head and face. Pertinent findings include: - Right forehead, nasal bridge, right cheek with hyperpigmented reticulated macules and patches ASSESSMENT AND PLAN: 34 year old female with: Melasma - Discussed role of genetics, hormones, and sun exposure over time - Discussed we have low suspicion this is related to Ocrevus infusions Plan In the morning: - Start hydroquinone 4% topical cream every morning. Use for 3 months, then take a 1 month break. - Patient instructed to first apply a test patch by applying a thin layer of medication to a small area of unbroken skin on her arm and check in 24 hours. If irritation or blistering occurs do not use. - Before using, wash and dry area gently. - Apply a thin film to affected area and rub in gently. Avoid contact with eyes. Do not apply to open wounds or weeping areas. - Start tinted (iron oxide containing) sunscreen daily every morning ( [employer], La Beatriz Posay Ultra S (more content not included)... [facility] 04-11-2025 Note HNO ID: [id number] Author: ANGELA QUINTANILLA PSYD Service: ? Author Type: Psychologist Type: Progress Notes Filed: 04/11/2025 12:26 Note Text: [facility] FOLLOW-UP BILLING PROVIDER: Angela Quintanilla PsyD Patient: Isac Peres [facility]#: [id number] Neurology Team: Patricia/Young Spouse: Remigio I have communicated my name and active licensure. The patient's identity and physical location (see EMR for home address) were verified at the time of this visit. Either the patient or their legal sales representative health insurance has been informed of the risks and benefits of -- and alternatives to -- treatment through a remote evaluation and consents to proceed with the evaluation remotely. The patient was given a copy of the consent form and the limits of confidentiality. Upon completion of risk/benefit analysis, the patient's presenting problem and apparent condition are considered appropriate for virtual format. The patient does appear to have sufficient knowledge and skills in the use of relevant technology to benefit from virtual format. Platform: [employer] Isac Peres was seen for 50 min on April 11, 2025. Patient was seen alone for follow-up. SUBJECTIVE: -Isac is currently on summer break, has had time to spend with family. Noticed increased physical demand from family events/trips. Explored interpersonal stressors and discussed effective communication. 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 -She has had some trouble with sleep the last few weeks, has been referred to sleep medicine/BSM. Patient returning to services after last being seen 05/2024. Majority of session focused on goal setting/tx planning. 12/02/2024 04/06/2025 04/11/2025 PHQ-9 Score 12 16 14 (0-4) minimal depression (5-9) mild depression (10-14) moderate depression (15-19) moderately severe depression (20-27) severe depression 04/27/2024 05/24/2024 04/11/2025 SHABNAM - 7 SCORES Score 6 5 9 (0-5) mild anxiety (6-10) moderate anxiety (11-15) moderately severe anxiety (16-21) severe anxiety OBJECTIVE: MENTAL STATUS EXAMINATION: Appearance: Well dressed, well groomed Behavior: Behaves appropriately during the encounter Social Relatedness: Euthymic Speech/Language: The patient demonstrates appropriate tone, prosody, benson, phonetics, and syntax Mood: euthymic Affect: Full and appropriate to topic Orientation: Person, Place, Time and Situation Associations: Intact and linear Hallucinations: None Delusions: None Suicidal Ideation: No suicidal ideation, intent or plan. Homicidal Ideation: No homicidal ideation, intent or plan. Insight: Appropriate Judgment: Appropriate ASSESSMENT: Ms. Isac Peres is a 34 year old female diagnosed with MS. She presented to treatment with concerns regarding MS symptoms impacting her mood. Patient was open to treatment focusing on stress AND fatigue management. This plan was developed in conjunction with the patient and she agreed with its contents. DIAGNOSIS: Adjustment Disorder with Mixed Anxiety and Depressed Mood Fatigue MS TREATMENT MODALITIES: Supportive therapy/processing Fatigue management Treatment planning PROGRESS TO DATE: [facility] Progress: Stable Short Term Condition: Stable GOALS/OBJECTIVES/INTERVENTIONS: PLAN: 1) Treatment will continue to focus on acceptance and management of disease 2) Referrals to sleep medicine/behavioral sleep medicine have been placed. She will likely benefit from these services. 3) Follow-up in 4-8 weeks Approximately 50 minutes were spent with the patient doing therapy. SIGNATURE: Angela Quintanilla PSYD PATIENT NAME: Isac Peres DATE: April 11, 2025 TIME: 11:[address] [facility] 04-06-2025 History of Present illness Narrative Images from the original note were not included. [facility] FOLLOWUP/ESTABLISHED PATIENT VISIT PRINCIPAL NEUROLOGIC DIAGNOSIS: multiple sclerosis DISEASE SUMMARY Date of onset: 2019 Date of diagnosis of MS: NA Disease course at onset: Relapsing-Remitting Current disease course: Progressive with relapses Previous disease therapies: NA Current disease therapy: Ocrevus (started 10/02/22) Most recent MRI brain: 10/06/24 Most recent MRI cervical spine: 02/27/23 Most recent MRI thoracic spine:10/02/23 CSF: NA VZV serology result and date: NA AQP4-IgG: NA MOG-IgG: NA CHIEF COMPLAINT: Follow-up on MS disease modifying therapy INTERVAL HISTORY: Usual treating team: Patricia/Kevin The patient is accompanied by . The patient was last seen 10/11/24, currently taking Ocrevus. Tolerated well. Since the patient's last visit the patient reports overall feeling worse. Family camping trip didn't go well - too tired by day 3 and mostly slept Hasn't been eating as much - 1-2 small meals due to low appetite - nausea when eating - started around Nov 2024 - limited food that doesn't make her sick (hashbrown and fruit) - acupuncture was helpful but wasn't covered by insurance - has appointment with GI upcoming in Jun Sleep worse over the last couple weeks - increased pain recently - more irritable/ short-fused - insomnia and interrupted sleep Never felt like she returned to baseline after prolonged illness in [place] like having flares during end of school year - hard to describe symptoms but all felt similar to past sx - right leg not functioning - right leg can feel swollen and harder lifting/tripping - more headaches/intense headaches - around time of menstrual cycle. On rescue meds (only used Ubrelvy once) but no preventative headaches Every other period, would get yeast infection Notes hair thinning and ongoing issues with skin pigmentation changes in face - interested in seeing dermatology SUBJECTIVE & REVIEW OF SYSTEMS: Neuro-QoL Functions (higher=better functioning) Flowsheet Row Appointment from 04/06/2025 in [facility] from 10/11/2024 in [facility] from 03/31/2024 in [facility] Upper Extremity Domain T Score 42 42 45 Lower Extremity Domain T Score 38 40 47 Cognitive Function Domain T Score 34 35 32 Positive Affect Well Being T Score -- -- -- Ability To Participate In Social Roles T Score 42 23 43 Satisfaction With Social Roles T Score 36 33 35 Neuro-QoL Symptoms (higher=worse symptoms) Flowsheet Row Appointment from 04/06/2025 in [facility] from 10/11/2024 in [facility] from 04/28/2024 in Psychology Sleep Domain T Score 66 67 -- Fatigue Domain T Score 63 73 -- Anxiety Domain T Score 54 54 -- Depression Domain T Score 47 51 46 Stigma Domain T Score 59 59 -- Emotional Behavior Dyscontrol T Score -- -- -- *NeuroQoL is a multi-domain patient-reported quality of life questionnaire. PHQ-9 Flowsheet Row Appointment from 04/06/2025 in [facility] Office Visit from 12/02/2024 in [facility] [place] PHQ-9 Score 16 12 *PHQ-9 is a questionnaire for depressive symptoms, with scores 0-4 indicating none, 5-9 mild, 10-14 moderate, 15-19 moderately severe, and 20-27 severe symptoms. PROMIS-10 Flowsheet Row Appointment from 04/06/2025 in [facility] Distance Health from 10/11/2024 in [facility] Global Physical Health T Score 34.9 23.5 Global Mental Health T Score 36.3 36.3 0-10 Standard Pain Scale 3 2 *PROMIS-10 is a patient-reported quality of life measure, typically reported as physical and mental domains. Here scores are expressed as percentiles, where the lowest possible score is one, the highest possible score is 99, and 50 is average. Refer to patient-entered data. Mood: PHQ9 responses reviewed and appear below Bowel: Normal Pain related to today's visit:reviewed on nursing intake documentation Fatigue: Severe Memory/Concentration: See HPI PAST HISTORY was reviewed and updated: PAST MEDICAL HISTORY Diagnosis Date Adjustment disorder with depressed mood Dysmenorrhea Encounter for insertion or removal of intrauterine contraceptive device 06/12/2011 Multiple sclerosis (HCC) Unspecified asthma(493.90) SPORTS INDUCED, NO PROBLEMS SINCE AGE 16 PAST SURGICAL HISTORY Procedure Laterality Date DELIVERY ONLY 11/11/2009 DELIVERY ONLY 03/31/11 , low transverse ESOPHAGOGASTRODUODENOSCOPY TRANSORAL DIAGNOSTIC 02/18/2018 EGD HYSTEROSCOPY 06/10/2016 in office to remove IUD INSERTION OF IUD 06/2011, 06/10/2016 LAPS SURG CHOLECYSTECTOMY W/CHOLANGIOGRAPHY 01/25/10 Normal IOC PAST SURGICAL HISTORY OF DIAGNOSTIC LAPAROSCOPY UNSPECIFIED ORAL SURGERY PROCEDURE, BY REPORT wisdom teeth removed MEDICATIONS and ALLERGIES were reviewed and updated. SOCIAL HISTORY was reviewed and updated: Social History Tobacco Use Smoking status: Never Smokeless tobacco: Never Living situation: Living at home without assistance Employment Status / Disability: Full-time OBJECTIVE: VITALS & WELLNESS: LMP 11/08/2024 MSPT Results Flowsheet Row Office Visit from 10/02/2023 in [facility] Office Visit from 04/02/2023 in [facility] Office Visit from 05/29/2022 in [facility] Processing Speed Total Number Correct 61 70 65 Processing Speed Z score 0.83 1.74 1.18 Dominant hand -- -- Right hand MDT Left Hand Time 32.13 27.03 27.85 MDT Right Hand Time 27.91 22.7 24.19 Walking Speed Test (25 feet) 6.73 6.59 2.02 Memory Z Score -- -- -- EXAM: General Appearance: well appearing, in no acute distress Mental status evaluation during the interview and examination showed Reported difficulties: memory word finding concentration / attention Affect: Normal Extraocular movements: full, without BEN Speech: normal Muscle strength (#/5): Right Left Upper Extremity: Deltoids 5 5 Biceps 5 5 Triceps 5 5 Factorer 5 5 Dorsal interossei 5 5 Lower extremity: Iliopsoas 4+ 5 Quadriceps 4+ 5 Hamstrings 4+ 5 Tibialis anterior 5 5 Gastrocnemius 5 5 Coordination: Upper extremity dexterity and rapid movements: Normal bilaterally Finger-nose: no dysmetria; coordination intact Standing balance: Normal Standard gait: normal. Assistive device: independent RESULTS: Monitoring labs: CBC + Diff Component Value Date WBC 6.61 04/06/2025 HB 12.8 04/06/2025 HCT 38.2 04/06/2025 PLT 293 04/06/2025 ABSLYMPH 2.27 04/06/2025 CMP Component Value Date AST 15 04/06/2025 GLUC 85 04/06/2025 BUN 12 04/06/2025 CREAT 1.01 (H) 04/06/2025 NA 137 04/06/2025 K 4.8 04/06/2025 CHLOR 107 04/06/2025 ALT 12 04/06/2025 No results found for: JCVAB, JCVIND Discrete MRI Results Component Value Date Brain New T2 Lesions None Site 10/06/2024 Brain Enhancing Lesions Not applicable 10/06/2024 Cervical Spine New T2 Lesions None 02/27/2023 Cervical Spine New T2 Lesions None 02/27/2023 Cervical spine enhancing lesions Not applicable 02/27/2023 Cervical spine enhancing lesions Not applicable 02/27/2023 ASSESSMENT/PLAN: Isac Peres is a 34 year old female with Multiple Sclerosis. Patient is on Ocrevus for DMT. Reports good compliance. Labs drawn with infusion today. Recommend brain and c-spine MRI in about 6 months. MRI of the brain and/or spinal cord is being ordered to evaluate for efficacy of multiple sclerosis (MS) disease modifying therapy. Disease activity in MS is often not immediately detectable on history or examination, but is sensitively identified on MRI. If identified, new or active MS lesions on MRI may represent suboptimal response to MS therapy, and would change medical management. Overall patient feeling worse over last 4-6 months. Will attempt to optimize sleep (refer to sleep medicine team/behavioral sleep medicine) and re-establish with health psychology. She notes changes in appetite/nausea - follow-up with GI and consider further work-up (inquire about possibility of gastroparesis). Advised to keep headache log to see if headache contributor to nausea/pain. She is scheduled for FCE to explore disability. Patient Health Education Discussed at Visit: Aerobic exercise, Emotional Health/Wellness, and Risks and Common side effects of MS medications Follow-up: In 3-6 months at [place] with [facility] or sooner if needed I spent a total of 45 minutes on the date of the service which included preparing to see the patient, [id number] patient care, completing clinical documentation, obtaining and/or reviewing separately obtained history, performing a medically appropriate examination, counseling and educating the patient/family/caregiver, ordering medications, tests, or procedures, and communicating results to the patient/family/caregiver. Lizet Brown PA-C The chart was reviewed for possible participation in the following studies:None documented in this encounter [facility] 04-06-2025 Note HNO ID: [id number] Author: LIZET BROWN PA-C Service: ? Author Type: Physician Book Cutter Type: Progress Notes Filed: 04/06/2025 16:09 Note Text: [facility] FOLLOWUP/ESTABLISHED PATIENT VISIT PRINCIPAL NEUROLOGIC DIAGNOSIS: multiple sclerosis DISEASE SUMMARY Date of onset: 2019 Date of diagnosis of MS: NA Disease course at onset: Relapsing-Remitting Current disease course: Progressive with relapses Previous disease therapies: NA Current disease therapy: Ocrevus (started 10/02/22) Most recent MRI brain: 10/06/24 Most recent MRI cervical spine: 02/27/23 Most recent MRI thoracic spine:10/02/23 CSF: NA VZV serology result and date: NA AQP4-IgG: NA MOG-IgG: NA CHIEF COMPLAINT: Follow-up on MS disease modifying therapy INTERVAL HISTORY: Usual treating team: Patricia/Kevin The patient is accompanied by . The patient was last seen 10/11/24, currently taking Ocrevus. Tolerated well. Since the patient's last visit the patient reports overall feeling worse. Family camping trip didn't go well - too tired by day 3 and mostly slept Hasn't been eating as much - 1-2 small meals due to low appetite - nausea when eating - started around Nov 2024 - limited food that doesn't make her sick (hashbrown and fruit) - acupuncture was helpful but wasn't covered by insurance - has appointment with GI upcoming in Jun Sleep worse over the last couple weeks - increased pain recently - more irritable/ short-fused - insomnia and interrupted sleep Never felt like she returned to baseline after prolonged illness in [place] like having flares during end of school year - hard to describe symptoms but all felt similar to past sx - right leg not functioning - right leg can feel swollen and harder lifting/tripping - more headaches/intense headaches - around time of menstrual cycle. On rescue meds (only used Ubrelvy once) but no preventative headaches Every other period, would get yeast infection Notes hair thinning and ongoing issues with skin pigmentation changes in face - interested in seeing dermatology SUBJECTIVE AND REVIEW OF SYSTEMS: Neuro-QoL Functions (higher=better functioning) Flowsheet Row Appointment from 04/06/2025 in [facility] from 10/11/2024 in [facility] from 03/31/2024 in [facility] Upper Extremity Domain T Score 42 42 45 Lower Extremity Domain T Score 38 40 47 Cognitive Function Domain T Score 34 35 32 Positive Affect Well Being T Score -- -- -- Ability To Participate In Social Roles T Score 42 23 43 Satisfaction With Social Roles T Score 36 33 35 Neuro-QoL Symptoms (higher=worse symptoms) Flowsheet Row Appointment from 04/06/2025 in [facility] from 10/11/2024 in [facility] from 04/28/2024 in Psychology Sleep Domain T Score 66 67 -- Fatigue Domain T Score 63 73 -- Anxiety Domain T Score 54 54 -- Depression Domain T Score 47 51 46 Stigma Domain T Score 59 59 -- Emotional Behavior Dyscontrol T Score -- -- -- *NeuroQoL is a multi-domain patient-reported quality of life questionnaire. PHQ-9 Flowsheet Row Appointment from 04/06/2025 in [facility] Office Visit from 12/02/2024 in [facility] PHQ-9 Score 16 12 *PHQ-9 is a questionnaire for depressive symptoms, with scores 0-4 indicating none, 5-9 mild, 10-14 moderate, 15-19 moderately severe, and 20-27 severe symptoms. PROMIS-10 Flowsheet Row Appointment from 04/06/2025 in [facility] Distance Health from 10/11/2024 in [facility] Global Physical Health T Score 34.9 23.5 Global Mental Health T Score 36.3 36.3 0-10 Standard Pain Scale 3 2 *PROMIS-10 is a patient-reported quality of life measure, typically reported as physical and mental domains. Here scores are expressed as percentiles, where the lowest possible score is one, the highest possible score is 99, and 50 is average. Refer to patient-entered data. Mood: PHQ9 responses reviewed and appear below Bowel: Normal Pain related to today's visit:reviewed on nursing intake documentation Fatigue: Severe Memory/Concentration: See HPI PAST HISTORY was reviewed and updated: PAST MEDICAL HISTORY Diagnosis Date Adjustment disorder with depressed mood Dysmenorrhea Encounter for insertion or removal of intrauterine contraceptive device 06/12/2011 Multiple sclerosis (HCC) Unspecified asthma(493.90) SPORTS INDUCED, NO PROBLEMS SINCE AGE 16 PAST SURGICAL HISTORY Procedure Laterality Date DELIVERY ONLY 11/11/2009 DELIVERY ONLY 03/31/11 , low transverse ESOPHAGOGASTRODUODENOSCOPY TRANSORAL DIAGNOSTIC 02/18/2018 EGD HYSTEROSCOPY 06/10/2016 in office to remove IUD INSERTION OF IUD 06/2011, 06/10/2016 LAPS SURG CHOLECYSTECTOMY W/CHOLANGIOGRAPHY 01/25/10 Normal IOC PAST SURGICAL HISTORY OF DIAGNOSTIC LAPAROSCOPY UNSPECIFIED ORAL SURGERY PROCEDURE, BY REPORT wisdom teeth re (more content not included)... [facility] 03-13-2025 Telephone encounter Note OK to refill as ordered Annie Justin MD [facility] 03-13-2025 Miscellaneous Notes OK to refill as ordered Annie Justin MD Prescription Refill Information The patient has been identified by name and date of : Yes Caregiver verified no other encounters exist for this prescription request: Yes Caregiver confirmed with patient/requestor that no other refills are due, in the near future, with this provider at this time: Yes The last office visit in the department: 12/02/24 Does the patient have a future office visit with this provider/department: No, pt due for 6 month f/u at the end of May. Advised pt she needs to schedule an appt with PCP or AUDI. Update pt via Qteros once Rx's have been sent to the Pharmacy. Requested Prescriptions Pending Prescriptions Disp Refills amphetamine-dextroamphetamine XR (ADDERALL XR) 30 mg capsule 30 capsule 0 Sig: Take 1 capsule by mouth once daily for 30 days. amphetamine-dextroamphetamine XR (ADDERALL XR) 30 mg capsule 30 capsule 0 Sig: Take 1 capsule by mouth once daily for 30 days. amphetamine-dextroamphetamine XR (ADDERALL XR) 30 mg capsule 30 capsule 0 Sig: Take 1 capsule by mouth once daily for 30 days. Callie George MA March 13, 2025 8:47 AM documented in this encounter [facility] 03-13-2025 Telephone encounter Note Prescription Refill Information The patient has been identified by name and date of : Yes Caregiver verified no other encounters exist for this prescription request: Yes Caregiver confirmed with patient/requestor that no other refills are due, in the near future, with this provider at this time: Yes The last office visit in the department: 12/02/24 Does the patient have a future office visit with this provider/department: No, pt due for 6 month f/u at the end of May. Advised pt she needs to schedule an appt with PCP or AUDI. Update pt via Qteros once Rx's have been sent to the Pharmacy. Requested Prescriptions Pending Prescriptions Disp Refills amphetamine-dextroamphetamine XR (ADDERALL XR) 30 mg capsule 30 capsule 0 Sig: Take 1 capsule by mouth once daily for 30 days. amphetamine-dextroamphetamine XR (ADDERALL XR) 30 mg capsule 30 capsule 0 Sig: Take 1 capsule by mouth once daily for 30 days. amphetamine-dextroamphetamine XR (ADDERALL XR) 30 mg capsule 30 capsule 0 Sig: Take 1 capsule by mouth once daily for 30 days. Callie George MA March 13, 2025 8:47 AM [facility] 02-07-2025 Telephone encounter Note Images from the original note were not included. Unable to complete PA electronically Completed on covermymeds. Approved. Pharmacy notified. Pt notified via my chart. ISAC PERES (Hung: [id number]) MARTHA Rx #: [id number] Need Help? Call us at Outcome Approved today by [facility] 2016 Your PA request has been approved. Additional information will be provided in the approval communication. (Message 1144) Effective Date: 02/07/2025 Authorization Expiration Date: 02/07/2026 Drug Amphetamine-Dextroamphet ER 30MG er capsules Form [employer] Electronic PA Form (2016PDP) Original Claim Info 75 [facility] 02-07-2025 Miscellaneous Notes Images from the original note were not included. Unable to complete PA electronically Completed on covermymeds. Approved. Pharmacy notified. Pt notified via my chart. ISAC PERES (Hung: [id number]) MARTHA Rx #: [id number] Need Help? Call us at Outcome [facility] Your PA request has been approved. Additional information will be provided in the approval communication. (Message 1147) Effective Date: 02/07/2025 Authorization Expiration Date: 02/07/2026 Drug Amphetamine-Dextroamphet ER 30MG er capsules Form [employer] Electronic PA Form (2016PDP) Original Claim Info 75 Electronic PA rec'd for amphetamine dextroamphetamine 30mg cap. Called the pharmacy to see if this really needs a PA. They report the rx from 12/02/24 was filled generic with no issues. The rx for 01/01/25 was not filled. They tried to run the rx dated 02/01/25 and the generic is still coming up PA needed. documented in this encounter [facility] 02-07-2025 Telephone encounter Note Electronic PA rec'd for amphetamine dextroamphetamine 30mg cap. Called the pharmacy to see if this really needs a PA. They report the rx from 12/02/24 was filled generic with no issues. The rx for 01/01/25 was not filled. They tried to run the rx dated 02/01/25 and the generic is still coming up PA needed. [facility] 01-31-2025 Telephone encounter Note The following approved medication requests have been transmitted electronically. Requested Prescriptions Signed Prescriptions Disp Refills amantadine HCl (SYMMETREL) 100 mg capsule 60 capsule 5 Sig: Take 1 capsule by mouth twice daily Authorizing Provider: LIZET BROWN PA-C [facility] 01-31-2025 Miscellaneous Notes The following approved medication requests have been transmitted electronically. Requested Prescriptions Signed Prescriptions Disp Refills amantadine HCl (SYMMETREL) 100 mg capsule 60 capsule 5 Sig: Take 1 capsule by mouth twice daily Authorizing Provider: LIZET BROWN PA-C Source : electronic from pharmacy requesting refill. Delivery : e-script Requested Prescriptions Pending Prescriptions Disp Refills amantadine HCl (SYMMETREL) 100 mg capsule [Pharmacy Med Name: Amantadine HCl 100 MG Oral Capsule] 60 capsule 5 Sig: Take 1 capsule by mouth twice daily DX : Patient last seen: 10/11/2024 Next Appointment : 04/06/2025 Amanda Das documented in this encounter [facility] 01-30-2025 Telephone encounter Note Source : electronic from pharmacy requesting refill. Delivery : e-script Requested Prescriptions Pending Prescriptions Disp Refills amantadine HCl (SYMMETREL) 100 mg capsule [Pharmacy Med Name: Amantadine HCl 100 MG Oral Capsule] 60 capsule 5 Sig: Take 1 capsule by mouth twice daily DX : Patient last seen: 10/11/2024 Next Appointment : 04/06/2025 Amanda Das [facility] Work Phone: 12-02-2024 Instructions Chiara Pedersen APRN.BRANDON - 12/02/2024 8:39 AM EST Continue to take all medication as prescribed Schedule follow up GI May try Ubrelvy 50 mg as needed for migraine headache. Compete urine tox screen Get labs completed every 6 months Keep scheduled appointment with Neurology May consider Wellbutrin XL if needed in the future Follow up in 6 months or sooner as needed. documented in this encounter [facility] 12-02-2024 History of Present illness Narrative This is a 34 year old female who presents today with: Patient presents with: 6 Month Exam HISTORY OF PRESENT ILLNESS: Isac Peres is a 34 year old female. Patient presents with: 6 Month Exam 6 month follow up ADHD: Taking Adderall XR 30 mg daily. Medication working well for focus and concentration. Due for tox screen History of MS: Following with neurology. Taking Baclofen 10 mg QHS, Vitamin D3 5000 IUs daily, and Gabapentin 300 mg TID. Getting Ocrevus injections every 6 months. Going to Therapy through MS clinic, increased irritability. MS can affect mood. No SI/HI. GI: Eleavted alk phos, had/isoenzyme completed, elevated liver fraction. Has had an RUQ US completed in May which was unremarkable. Needs to schedule follow-up with GI. Creatinine mildly elevated, has been monitoring through labs. Headaches: Migraines during menses week. Will get photophobia and phonophobia. Using Imitrex as need but causes drowsiness. Vaccines: Due for Dtap, denies wanting at this time. PAST MEDICAL HISTORY: PAST MEDICAL HISTORY Diagnosis Date Adjustment disorder with depressed mood Dysmenorrhea Encounter for insertion or removal of intrauterine contraceptive device 06/12/2011 Multiple sclerosis (HCC) Unspecified asthma(493.90) SPORTS INDUCED, NO PROBLEMS SINCE AGE 16 PAST SURGICAL HISTORY Procedure Laterality Date DELIVERY ONLY 11/11/2009 DELIVERY ONLY 03/31/11 , low transverse ESOPHAGOGASTRODUODENOSCOPY TRANSORAL DIAGNOSTIC 02/18/2018 EGD HYSTEROSCOPY 06/10/2016 in office to remove IUD INSERTION OF IUD 06/2011, 06/10/2016 LAPS SURG CHOLECYSTECTOMY W/CHOLANGIOGRAPHY 01/25/10 Normal IOC PAST SURGICAL HISTORY OF DIAGNOSTIC LAPAROSCOPY UNSPECIFIED ORAL SURGERY PROCEDURE, BY REPORT wisdom teeth removed ALLERGIES Patient has no known allergies. MEDICATIONS Current Outpatient Medications Medication Sig baclofen 10 mg tablet Take 1 tablet by mouth in the evening and 3 tablet at bedtime gabapentin (NEURONTIN) 300 mg capsule TAKE 2 CAPSULES BY MOUTH THREE TIMES DAILY. MAY TAKE ADDITIONAL 300 MG NEEDED FOR PAIN. (Patient not taking: Reported on 10/17/2024) amphetamine-dextroamphetamine XR (ADDERALL XR) 30 mg capsule Take 1 capsule by mouth once daily for 30 days. amphetamine-dextroamphetamine XR (ADDERALL XR) 30 mg capsule Take 1 capsule by mouth once daily for 30 days. Patient should start on June 16, 2024. amphetamine-dextroamphetamine XR (ADDERALL XR) 30 mg capsule Take 1 capsule by mouth once daily for 30 days. Patient should start on July 16, 2024. SUMAtriptan (IMITREX) 100 mg tablet Take 1 tablet (100 mg) by mouth as needed for migraine headache (see administration instructions). START AT ONSET OF HEADACHE. MAY REPEAT DOSE AFTER 2 HOURS. topiramate (TOPAMAX) 50 mg tablet TAKE 1 & 1/2 (ONE & ONE-HALF) TABLETS BY MOUTH ONCE DAILY AT BEDTIME amantadine HCl (SYMMETREL) 100 mg capsule Take 1 capsule by mouth twice daily DULoxetine (CYMBALTA) 60 mg capsule Take 1 capsule by mouth once daily amphetamine-dextroamphetamine XR (ADDERALL XR) 30 mg capsule Take 1 capsule by mouth once daily for 30 days. Do not start before January 07, 2024. amphetamine-dextroamphetamine XR (ADDERALL XR) 30 mg capsule Take 1 capsule by mouth once daily for 30 days. Do not start before February 06, 2024. amphetamine-dextroamphetamine XR (ADDERALL XR) 30 mg capsule Take 1 capsule by mouth once daily for 30 days. dextroamphetamine-amphetamine (ADDERALL) 10 mg tablet Take 1 tablet by mouth once daily for 30 days. Cholecalciferol, Vitamin D3, 125 mcg (5,000 unit) cap Take 1 capsule by mouth once daily. albuterol HFA (PROVENTIL HFA, VENTOLIN HFA) 90 mcg/actuation inhaler Inhale 2 Puffs as instructed every 4 hours as needed for wheezing/shortness of breath. ocrelizumab (OCREVUS INTRAVENOUS) Inject intravenously once every 6 months. No current facility-administered medications for this visit. FAMILY HISTORY Problem Relation Age of Onset other (endometrial cancer) Mother Lipids Father Arthritis Maternal Grandmother Asthma Maternal Grandmother Cancer Maternal Grandmother SKIN CANCER Heart Maternal Grandmother Rheumatologic disease Maternal Grandmother Fibromyalgia Cancer Maternal Grandfather Multiple Sclerosis Paternal cousin Social History Tobacco Use Smoking status: Never Smokeless tobacco: Never Vaping Use Vaping status: Never Used Substance Use Topics Alcohol use: No Comment: 1/mo Drug use: No REVIEW OF SYSTEMS GENERAL: No weight loss, malaise or fevers/chills HEENT: Negative for frequent or significant headaches, No changes in hearing or vision. NECK: Negative for lumps, goiter, pain and significant neck swelling RESPIRATORY: Negative for cough, hemoptysis, wheezing, dyspnea or shortness of breath CARDIOVASCULAR: Negative for chest pain, leg swelling, orthopnea, or palpitations GI: No nausea, vomiting, or diarrhea/constipation. No hematochezia/melena. No heartburn or reflux symptoms. : No history of dysuria, frequency or incontinence MUSCULOSKELETAL: Negative for joint pain or swelling. SKIN: Negative for lesions, rash, and itching ENDOCRINE: Negative for cold or heat intolerance, polyuria, polydipsia and goiter NEURO: No history of headaches, syncope, paralysis, seizures or tremors MOOD: Irritability EXAM: BP 122/74 Pulse 93 Resp 16 Wt 100.7 kg (222 lb) LMP 11/08/2024 SpO2 97% BMI 39.33 kg/m PHYSICAL EXAM: General Appearance: Well appearing, alert, in no acute distress, well-hydrated, well nourished. Skin: Skin color, texture, turgor normal, no suspicious rashes or lesions. Head: Normocephalic, no masses, lesions, tenderness or abnormalities. Eyes: Anicteric sclera. Extraocular movements are intact. Lungs: Lungs clear to auscultation. No wheezing, rhonchi, rales. Heart: RRR without murmur, gallop, or rubs. No ectopy. Extremities: No deformities, edema, skin discoloration, clubbing or cyanosis. Good capillary refill. Peripheral Pulses: Normal, Capillary refill <2secs, strong peripheral pulses, Pulses palpable. Neurologic: Gait normal. Sensation grossly intact. Mood: Pleasant, engaged, good eye contact. ASSESSMENT/PLAN: 1. Adult ADHD - ICD9: 314.01, ICD10: F90.9 (primary diagnosis) - Stable, refill provided. - Complete Tox Screen - DEXTROAMPHETAMINE-AMPHETAMINE ER 30 MG 24HR CAPSULE,EXTEND RELEASE - DEXTROAMPHETAMINE-AMPHETAMINE ER 30 MG 24HR CAPSULE,EXTEND RELEASE - DEXTROAMPHETAMINE-AMPHETAMINE ER 30 MG 24HR CAPSULE,EXTEND RELEASE - TOXICOLOGY SCREEN, ROUTINE URINE - QUANTITATIVE TOXICOLOGY PANEL, URINE 2. Multiple sclerosis (HCC) - ICD9: 340, ICD10: G35 - Stable, continue to take all medication as prescribed. - Keep scheduled appointments with specialist. 3. Elevated alkaline phosphatase level - ICD9: 790.5, ICD10: R74.8 - Schedule follow-up with GI. - Get repeat labs in 6 months. - COMPREHENSIVE METABOLIC PANEL 4. Intractable migraine without aura and without status migrainosus - ICD9: 346.11, ICD10: G43.019 - May stop Imitrex and try Ubrelvy 50 mg as needed for migraine. - UBRELVY 50 MG TABLET 5. Elevated serum creatinine - ICD9: 790.99, ICD10: R79.89 - COMPREHENSIVE METABOLIC PANEL 6. Irritability - ICD9: 799.22, ICD10: R45.4 - Denies wanting to start medication at this time. - Discussed starting Wellbutrin in the future if needed. 7. Screening for depression - ICD9: V79.0, ICD10: Z13.31 - DEPRESSION SCREENING 8. Encounter for screening examination for other mental health and behavioral disorders - ICD9: V79.8, ICD10: Z13.39 - ANXIETY SCREENING Follow-up in 6 months or sooner as needed. Discussed treatment plan and patient voices understanding. Patient's questions answered appropriately. Medications and potential side effects were discussed and patient voices understanding. Chiara Pedersen APRN.DIRECTOR DIVERSITY This note was partially generated using [employer] recognition system. Note was reviewed for accuracy. There may be minor misspellings or grammar miscues with [employer] voice recognition. PDMP website checked and validated. All prescriptions have been APPROPRIATELY filled. No suspicious activity was identified. 12/02/2024 by Chiara Pedersen APRN.BRANDON documented in this encounter [facility] 12-02-2024 Note HNO ID: [id number] Author: CHIARA PEDERSEN APRN.BRANDON Service: ? Author Type: Nurse Practitioner Type: Progress Notes Filed: 12/02/2024 10:41 Note Text: This is a 34 year old female who presents today with: Patient presents with: 6 Month Exam HISTORY OF PRESENT ILLNESS: Isac Peres is a 34 year old female. Patient presents with: 6 Month Exam 6 month follow up ADHD: Taking Adderall XR 30 mg daily. Medication working well for focus and concentration. Due for tox screen History of MS: Following with neurology. Taking Baclofen 10 mg QHS, Vitamin D3 5000 IUs daily, and Gabapentin 300 mg TID. Getting Ocrevus injections every 6 months. Going to Therapy through MS clinic, increased irritability. MS can affect mood. No SI/HI. GI: Eleavted alk phos, had/isoenzyme completed, elevated liver fraction. Has had an RUQ US completed in May which was unremarkable. Needs to schedule follow-up with GI. Creatinine mildly elevated, has been monitoring through labs. Headaches: Migraines during menses week. Will get photophobia and phonophobia. Using Imitrex as need but causes drowsiness. Vaccines: Due for Dtap, denies wanting at this time. PAST MEDICAL HISTORY: PAST MEDICAL HISTORY Diagnosis Date Adjustment disorder with depressed mood Dysmenorrhea Encounter for insertion or removal of intrauterine contraceptive device 06/12/2011 Multiple sclerosis (HCC) Unspecified asthma(493.90) SPORTS INDUCED, NO PROBLEMS SINCE AGE 16 PAST SURGICAL HISTORY Procedure Laterality Date DELIVERY ONLY 11/11/2009 DELIVERY ONLY 03/31/11 , low transverse ESOPHAGOGASTRODUODENOSCOPY TRANSORAL DIAGNOSTIC 02/18/2018 EGD HYSTEROSCOPY 06/10/2016 in office to remove IUD INSERTION OF IUD 06/2011, 06/10/2016 LAPS SURG CHOLECYSTECTOMY W/CHOLANGIOGRAPHY 01/25/10 Normal IOC PAST SURGICAL HISTORY OF DIAGNOSTIC LAPAROSCOPY UNSPECIFIED ORAL SURGERY PROCEDURE, BY REPORT wisdom teeth removed ALLERGIES Patient has no known allergies. MEDICATIONS Current Outpatient Medications Medication Sig baclofen 10 mg tablet Take 1 tablet by mouth in the evening and 3 tablet at bedtime gabapentin (NEURONTIN) 300 mg capsule TAKE 2 CAPSULES BY MOUTH THREE TIMES DAILY. MAY TAKE ADDITIONAL 300 MG NEEDED FOR PAIN. (Patient not taking: Reported on 10/17/2024) amphetamine-dextroamphetamine XR (ADDERALL XR) 30 mg capsule Take 1 capsule by mouth once daily for 30 days. amphetamine-dextroamphetamine XR (ADDERALL XR) 30 mg capsule Take 1 capsule by mouth once daily for 30 days. Patient should start on June 16, 2024. amphetamine-dextroamphetamine XR (ADDERALL XR) 30 mg capsule Take 1 capsule by mouth once daily for 30 days. Patient should start on July 16, 2024. SUMAtriptan (IMITREX) 100 mg tablet Take 1 tablet (100 mg) by mouth as needed for migraine headache (see administration instructions). START AT ONSET OF HEADACHE. MAY REPEAT DOSE AFTER 2 HOURS. topiramate (TOPAMAX) 50 mg tablet TAKE 1 AND 1/2 (ONE AND ONE-HALF) TABLETS BY MOUTH ONCE DAILY AT BEDTIME amantadine HCl (SYMMETREL) 100 mg capsule Take 1 capsule by mouth twice daily DULoxetine (CYMBALTA) 60 mg capsule Take 1 capsule by mouth once daily amphetamine-dextroamphetamine XR (ADDERALL XR) 30 mg capsule Take 1 capsule by mouth once daily for 30 days. Do not start before January 07, 2024. amphetamine-dextroamphetamine XR (ADDERALL XR) 30 mg capsule Take 1 capsule by mouth once daily for 30 days. Do not start before February 06, 2024. amphetamine-dextroamphetamine XR (ADDERALL XR) 30 mg capsule Take 1 capsule by mouth once daily for 30 days. dextroamphetamine-amphetamine (ADDERALL) 10 mg tablet Take 1 tablet by mouth once daily for 30 days. Cholecalciferol, Vitamin D3, 125 mcg (5,000 unit) cap Take 1 capsule by mouth once daily. albuterol HFA (PROVENTIL HFA, VENTOLIN HFA) 90 mcg/actuation inhaler Inhale 2 Puffs as instructed every 4 hours as needed for wheezing/shortness of breath. ocrelizumab (OCREVUS INTRAVENOUS) Inject intravenously once every 6 months. No current facility-administered medications for this visit. FAMILY HISTORY Problem Relation Age of Onset other (endometrial cancer) Mother Lipids Father Arthritis Maternal Grandmother Asthma Maternal Grandmother Cancer Maternal Grandmother SKIN CANCER Heart Maternal Grandmother Rheumatologic disease Maternal Grandmother Fibromyalgia Cancer Maternal Grandfather Multiple Sclerosis Paternal cousin Social History Tobacco Use Smoking status: Never Smokeless tobacco: Never Vaping Use Vaping status: Never Used Substance Use Topics Alcohol use: No Comment: 1/mo Drug use: No REVIEW OF SYSTEMS GENERAL: No weight loss, malaise or fevers/chills HEENT: Negative for frequent or significant headaches, No changes in hearing or vision. NECK: Negative for lumps, goiter, pain and significant neck swelling RESPIRATORY: Negative for cough, hemopt (more content not included)... [facility] 12-01-2024 Telephone encounter Note Collaborated with the patients provider, recommendations received and sent to patient in MyChart. [facility] 12-01-2024 Miscellaneous Notes Collaborated with the patients provider, recommendations received and sent to patient in [facility]. Recommend scheduling FCE with PT, neuropsych testing, and meeting with social work (Heike) to discuss disability process. Referrals placed Normal priority message forwarded to [facility] provider team for review related to disability eval request . documented in this encounter [facility] 11-30-2024 Telephone encounter Note Recommend scheduling FCE with PT, neuropsych testing, and meeting with social work (Heike) to discuss disability process. Referrals placed [facility] 11-28-2024 Telephone encounter Note Normal priority message forwarded to [facility] provider team for review related to disability eval request . [facility] 11-14-2024 Instructions Chiara Pedersen APRN.BRANDON - 11/14/2024 9:27 AM EST Start Augmentin, take with food. Continue supportive care at home. May use [id number] cold and cough medications as needed. Stay well-hydrated. Follow-up if no improvement. documented in this encounter [facility] 11-14-2024 History of Present illness Narrative Chief Complaint Patient presents with: URI This Team Access Model encounter involved medical decision making outside of a scheduled office visit. Patient was offered a virtual/telemedicine appointment in lieu of an office visit due to recommendations to reduce patient exposure to COVID-19. Video was used for evaluation of this patient. Patient agrees to the visit: Yes Patient Location: [facility] Isac Peres is a 34 year old female who is contacted today for a virtual visit This is an established patient of Dr. Annie Justin MD Reports: Sore throat, bilateral ear pain, and swollen lymph nodes in the neck. Has been on going for weeks. Refers that she had illness since October.Was seen in [facility] October 17, strep negative and negative chest xray. Intermittent fevers that seem to wax and wane. Low grade. Sinus pressure at times. No post nasal drip. No difficulty breathing. Past medical history, appointments, medications, allergies reviewed 11/14/2024 Previous Medical History PAST MEDICAL HISTORY Diagnosis Date Adjustment disorder with depressed mood Dysmenorrhea Encounter for insertion or removal of intrauterine contraceptive device 06/12/2011 Multiple sclerosis (HCC) Unspecified asthma(493.90) SPORTS INDUCED, NO PROBLEMS SINCE AGE 16 Previous Surgical History PAST SURGICAL HISTORY Procedure Laterality Date DELIVERY ONLY 11/11/2009 DELIVERY ONLY 03/31/11 , low transverse ESOPHAGOGASTRODUODENOSCOPY TRANSORAL DIAGNOSTIC 02/18/2018 EGD HYSTEROSCOPY 06/10/2016 in office to remove IUD INSERTION OF IUD 06/2011, 06/10/2016 LAPS SURG CHOLECYSTECTOMY W/CHOLANGIOGRAPHY 01/25/10 Normal IOC PAST SURGICAL HISTORY OF DIAGNOSTIC LAPAROSCOPY UNSPECIFIED ORAL SURGERY PROCEDURE, BY REPORT wisdom teeth removed Family History FAMILY HISTORY Problem Relation Age of Onset other (endometrial cancer) Mother Lipids Father Arthritis Maternal Grandmother Asthma Maternal Grandmother Cancer Maternal Grandmother SKIN CANCER Heart Maternal Grandmother Rheumatologic disease Maternal Grandmother Fibromyalgia Cancer Maternal Grandfather Multiple Sclerosis Paternal cousin Patient Allergies ALLERGIES No Known Allergies Current Medications Current Outpatient Medications on File Prior to Visit Medication Sig baclofen 10 mg tablet Take 1 tablet by mouth in the evening and 3 tablet at bedtime gabapentin (NEURONTIN) 300 mg capsule TAKE 2 CAPSULES BY MOUTH THREE TIMES DAILY. MAY TAKE ADDITIONAL 300 MG NEEDED FOR PAIN. (Patient not taking: Reported on 10/17/2024) amphetamine-dextroamphetamine XR (ADDERALL XR) 30 mg capsule Take 1 capsule by mouth once daily for 30 days. amphetamine-dextroamphetamine XR (ADDERALL XR) 30 mg capsule Take 1 capsule by mouth once daily for 30 days. Patient should start on June 16, 2024. amphetamine-dextroamphetamine XR (ADDERALL XR) 30 mg capsule Take 1 capsule by mouth once daily for 30 days. Patient should start on July 16, 2024. SUMAtriptan (IMITREX) 100 mg tablet Take 1 tablet (100 mg) by mouth as needed for migraine headache (see administration instructions). START AT ONSET OF HEADACHE. MAY REPEAT DOSE AFTER 2 HOURS. topiramate (TOPAMAX) 50 mg tablet TAKE 1 & 1/2 (ONE & ONE-HALF) TABLETS BY MOUTH ONCE DAILY AT BEDTIME amantadine HCl (SYMMETREL) 100 mg capsule Take 1 capsule by mouth twice daily DULoxetine (CYMBALTA) 60 mg capsule Take 1 capsule by mouth once daily amphetamine-dextroamphetamine XR (ADDERALL XR) 30 mg capsule Take 1 capsule by mouth once daily for 30 days. Do not start before January 07, 2024. amphetamine-dextroamphetamine XR (ADDERALL XR) 30 mg capsule Take 1 capsule by mouth once daily for 30 days. Do not start before February 06, 2024. amphetamine-dextroamphetamine XR (ADDERALL XR) 30 mg capsule Take 1 capsule by mouth once daily for 30 days. dextroamphetamine-amphetamine (ADDERALL) 10 mg tablet Take 1 tablet by mouth once daily for 30 days. Cholecalciferol, Vitamin D3, 125 mcg (5,000 unit) cap Take 1 capsule by mouth once daily. albuterol HFA (PROVENTIL HFA, VENTOLIN HFA) 90 mcg/actuation inhaler Inhale 2 Puffs as instructed every 4 hours as needed for wheezing/shortness of breath. ocrelizumab (OCREVUS INTRAVENOUS) Inject intravenously once every 6 months. No current facility-administered medications on file prior to visit. Social History Social History Tobacco Use Smoking status: Never Smokeless tobacco: Never Vaping Use Vaping status: Never Used Substance Use Topics Alcohol use: No Comment: 1/mo Drug use: No Review of Symptoms GENERAL: No malaise or fatigue. No fevers. HEENT: + Sore throat, ear pain, NECK: Negative for pain or swelling. No lumps RESPIRATORY: No wheezing, SOB, Difficulty breathing. No cough CARDIOVASCULAR: Negative for chest pain GI: No nausea, vomiting, or diarrhea MUSCULOSKELETAL: Negative for bodyaches SKIN: Negative for rash or itching Neuro: No lightheadedness or dizziness EXAM: LMP 05/22/2024 (Exact Date) Limited exam as visit was completed over the virtual platform. Virtual visit completed using video, limited exam completed. Patient sounds or appears ill: No General Appearance: Well appearing, alert, in no acute distress, well-hydrated, well nourished. Skin: Skin color normal Head: Normocephalic. No facial swelling or redness. EENT: Eyes nonreddened. No discharge. External ears nonreddened and no swelling. Frontal and maxillary tenderness with palpation. Neck: No mass or lesions. No swelling. FROM Patient is not able to speak in complete sentences: N/A Patient has labored breathing: No. Patient is audibly coughing: No Psych: Attitude - cooperative, easily engaged in conversation Affect - Euthymic, normal mood Mental status: Alert. Speech is clear and fluent with good repetition, comprehension Appearance - Normal hygiene and grooming appropriate Coordination: No abnormal or extraneous movements. Gait/Stance: Posture is normal. Health Maintenance List Depression Screening Never done Anxiety Screening Never done Hepatitis B Vaccine(1 of 3 - 19+ 3-dose series) Never done DTaP,Tdap,Td Vaccine(2 - Td or Tdap) due on 02/02/2022 Influenza Vaccine(1) due on 06/05/2024 Covid-19 Vaccine( - 2023- season) Never done Cervical Cancer Screening due on 05/12/2027 Hepatitis C Screening Completed HIV Screening Completed Data reviewed Last 5 Encounter BP Readings: Date: BP: 10/17/2024 112/68 10/06/2024 143/84 10/02/2024 119/83 06/21/2024 117/80 06/16/2024 116/82 BMI Readings from Last 5 Encounters: 10/17/24 : 39.44 kg/m 10/02/24 : 39.72 kg/m 06/21/24 : 40.61 kg/m 06/16/24 : 39.83 kg/m 06/12/24 : 39.83 kg/m Last 5 Encounter Wt Readings: Date: Wt: 10/17/2024 101 kg (222 lb 10.6 oz) 10/02/2024 101.7 kg (224 lb 3.3 oz) 06/21/2024 104 kg (229 lb 4.5 oz) 06/16/2024 102 kg (224 lb 13.9 oz) 06/12/2024 102 kg (224 lb 13.9 oz) Medication and allergy list reviewed, reconciled and updated 11/14/2024 ASSESSMENT/PLAN: 1. Bacterial sinusitis - ICD9: 473.9, 041.9, ICD10: J32.9, B96.89 - Will begin treatment with Augmentin 875 mg PO BID for 10 days - Supportive care with plenty of fluids, rest, and analgesia prn. - AMOXICILLIN 875 MG-POTASSIUM CLAVULANATE 125 MG TABLET Follow-up if no improvement. Discussed treatment plan and patient voices understanding. Patient's questions answered appropriately. Medications and potential side effects were discussed and patient voices understanding. Chiara Pedersen APRN.CNP Total appointment time on virtual with patient = 21-30 minutes This note was partially generated using [employer] voice recognition system. Note was reviewed for accuracy. There may be minor misspellings or grammar miscues with [employer] voice recognition. documented in this encounter [facility] 11-14-2024 Note HNO ID: [id number] Author: CHIARA PEDERSEN APRN.CNP Service: ? Author Type: Nurse Practitioner Type: Progress Notes Filed: 11/14/2024 09:27 Note Text: Chief Complaint Patient presents with: URI This Team Access Model encounter involved medical decision making outside of a scheduled office visit. Patient was offered a virtual/telemedicine appointment in lieu of an office visit due to recommendations to reduce patient exposure to COVID-19. Video was used for evaluation of this patient. Patient agrees to the visit: Yes Patient Location: [facility] Isac Peres is a 34 year old female who is contacted today for a virtual visit This is an established patient of Dr. Annie Justin MD Reports: Sore throat, bilateral ear pain, and swollen lymph nodes in the neck. Has been on going for weeks. Refers that she had illness since October.Was seen in [facility] October 17, strep negative and negative chest xray. Intermittent fevers that seem to wax and wane. Low grade. Sinus pressure at times. No post nasal drip. No difficulty breathing. Past medical history, appointments, medications, allergies reviewed 11/14/2024 Previous Medical History PAST MEDICAL HISTORY Diagnosis Date Adjustment disorder with depressed mood Dysmenorrhea Encounter for insertion or removal of intrauterine contraceptive device 06/12/2011 Multiple sclerosis (HCC) Unspecified asthma(493.90) SPORTS INDUCED, NO PROBLEMS SINCE AGE 16 Previous Surgical History PAST SURGICAL HISTORY Procedure Laterality Date DELIVERY ONLY 11/11/2009 DELIVERY ONLY 03/31/11 , low transverse ESOPHAGOGASTRODUODENOSCOPY TRANSORAL DIAGNOSTIC 02/18/2018 EGD HYSTEROSCOPY 06/10/2016 in office to remove IUD INSERTION OF IUD 06/2011, 06/10/2016 LAPS SURG CHOLECYSTECTOMY W/CHOLANGIOGRAPHY 01/25/10 Normal IOC PAST SURGICAL HISTORY OF DIAGNOSTIC LAPAROSCOPY UNSPECIFIED ORAL SURGERY PROCEDURE, BY REPORT wisdom teeth removed Family History FAMILY HISTORY Problem Relation Age of Onset other (endometrial cancer) Mother Lipids Father Arthritis Maternal Grandmother Asthma Maternal Grandmother Cancer Maternal Grandmother SKIN CANCER Heart Maternal Grandmother Rheumatologic disease Maternal Grandmother Fibromyalgia Cancer Maternal Grandfather Multiple Sclerosis Paternal cousin Patient Allergies ALLERGIES No Known Allergies Current Medications Current Outpatient Medications on File Prior to Visit Medication Sig baclofen 10 mg tablet Take 1 tablet by mouth in the evening and 3 tablet at bedtime gabapentin (NEURONTIN) 300 mg capsule TAKE 2 CAPSULES BY MOUTH THREE TIMES DAILY. MAY TAKE ADDITIONAL 300 MG NEEDED FOR PAIN. (Patient not taking: Reported on 10/17/2024) amphetamine-dextroamphetamine XR (ADDERALL XR) 30 mg capsule Take 1 capsule by mouth once daily for 30 days. amphetamine-dextroamphetamine XR (ADDERALL XR) 30 mg capsule Take 1 capsule by mouth once daily for 30 days. Patient should start on June 16, 2024. amphetamine-dextroamphetamine XR (ADDERALL XR) 30 mg capsule Take 1 capsule by mouth once daily for 30 days. Patient should start on July 16, 2024. SUMAtriptan (IMITREX) 100 mg tablet Take 1 tablet (100 mg) by mouth as needed for migraine headache (see administration instructions). START AT ONSET OF HEADACHE. MAY REPEAT DOSE AFTER 2 HOURS. topiramate (TOPAMAX) 50 mg tablet TAKE 1 AND 1/2 (ONE AND ONE-HALF) TABLETS BY MOUTH ONCE DAILY AT BEDTIME amantadine HCl (SYMMETREL) 100 mg capsule Take 1 capsule by mouth twice daily DULoxetine (CYMBALTA) 60 mg capsule Take 1 capsule by mouth once daily amphetamine-dextroamphetamine XR (ADDERALL XR) 30 mg capsule Take 1 capsule by mouth once daily for 30 days. Do not start before January 07, 2024. amphetamine-dextroamphetamine XR (ADDERALL XR) 30 mg capsule Take 1 capsule by mouth once daily for 30 days. Do not start before February 06, 2024. amphetamine-dextroamphetamine XR (ADDERALL XR) 30 mg capsule Take 1 capsule by mouth once daily for 30 days. dextroamphetamine-amphetamine (ADDERALL) 10 mg tablet Take 1 tablet by mouth once daily for 30 days. Cholecalciferol, Vitamin D3, 125 mcg (5,000 unit) cap Take 1 capsule by mouth once daily. albuterol HFA (PROVENTIL HFA, VENTOLIN HFA) 90 mcg/actuation inhaler Inhale 2 Puffs as instructed every 4 hours as needed for wheezing/shortness of breath. ocrelizumab (OCREVUS INTRAVENOUS) Inject intravenously once every 6 months. No current facility-administered medications on file prior to visit. Social History Social History Tobacco Use Smoking status: Never Smokeless tobacco: Never Vaping Use Vaping status: Never Used Substance Use Topics Alcohol use: No Comment: 1/mo Drug use: No Review of Symptoms GENERAL: No malaise or fatigue. No fevers. HEENT: + Sore throat, ear pain, NECK: Negative for pain or swelling. No lumps RESPIRATORY: No wheezing, SOB, (more content not included)... [facility] 10-17-2024 History of Present illness Narrative Radiology Service Progress Note PATIENT NAME: Isac Peres DATE OF SERVICE: October 17, 2024 TIME: 3:08 PM PATIENT IDENTITY VERIFICATION COMPLETED USING TWO (2) IDENTIFIERS: Name and Date of confirmed by patient verbally. FALL SCREENING: Has the patient had 2 falls in the last year or 1 fall with injury or currently using an Ambulatory Assistive Device (Walker, Cane, Wheelchair, Crutches, etc.)? No PATIENT GENDER DATA: Assigned female at . status: : No status: NO. PATIENT RELEVANT IMPLANT DATA REVIEWED: Yes PATIENT PRESENTS WITH AN IMPLANTABLE OR ATTACHED MEAT CUTTER: No RADIOLOGY DEPARTMENT: General X-ray: Exam(s) Completed: Chest X-Ray PERIPHERAL IV DATA: Not applicable SIGNED BY: RT Madisyn(Roslyn) October 17, 2024 3:08 PM documented in this encounter [facility] 10-17-2024 Note HNO ID: [id number] Author: JERRY HUNTER RT(R) Service: ? Author Type: Single End Sewer Type: Progress Notes Filed: 10/17/2024 15:15 Note Text: Radiology Service Progress Note PATIENT NAME: Isac Peres DATE OF SERVICE: October 17, 2024 TIME: 3:08 PM PATIENT IDENTITY VERIFICATION COMPLETED USING TWO (2) IDENTIFIERS: Name and Date of confirmed by patient verbally. FALL SCREENING: Has the patient had 2 falls in the last year or 1 fall with injury or currently using an Ambulatory Assistive Device (Walker, Cane, Wheelchair, Crutches, etc.)? No PATIENT GENDER DATA: Assigned female at . status: : No status: NO. PATIENT RELEVANT IMPLANT DATA REVIEWED: Yes PATIENT PRESENTS WITH AN IMPLANTABLE OR ATTACHED MEAT CUTTER: No RADIOLOGY DEPARTMENT: General X-ray: Exam(s) Completed: Chest X-Ray PERIPHERAL IV DATA: Not applicable SIGNED BY: RT Madisyn(Roslyn) October 17, 2024 3:[address] [facility] 10-17-2024 Note HNO ID: [id number] Author: JORDAN BAJWA APRN.DIRECTOR DIVERSITY Service: ? Author Type: Nurse Practitioner Type: Progress Notes Filed: 10/17/2024 15:22 Note Text: CC: Patient presents with: Chest Congestion: cough, fatigue, headache and sore throat x 4 days HPI: Isac Peres is a 34 year old female who presents to the office with complaint of chest congestion, cough, nonproductive, and sore throat for a few days. Symptoms are worsening Associated symptoms includes sore throat and dyspnea. Denies nausea, vomiting , and diarrhea. Treatments tried include nothing so far. with no relief of symptoms. Sick contacts: unknown. History of asthma, frequent episodes of bronchitis, chronic bronchitis, bronchiectasis or COPD: asthma as a kid Smoker: No Seasonal/environmental allergies: No The ROS is otherwise negative. The patient's pmh, medications, allergies, and past visits are reviewed. PHYSICAL EXAM: BP 112/68 Pulse 84 Temp 37.1 ?C (98.8 ?F) Resp 16 Wt 101 kg (222 lb 10.6 oz) LMP 05/22/2024 (Exact Date) SpO2 98% BMI 39.44 kg/m? General appearance: alert, cooperative, pleasant, in no acute distress Head: Normocephalic Eyes: EOM's intact, conjunctiva pink and moist, no icterus, sclera white, non-injected Ears: Right ear: External ear/canal- Normal, TM - clear with good landmarks. Left ear: External ear/canal- Normal, TM - clear with good landmarks Oropharynx:mild erythema, without exudates present, Neck: mild cervical adenopathy Heart: Negative. RRR without obvious murmur, gallop, or rubs. No ectopy. Lungs: clear to auscultation, without rales or wheeze, good air exchange PAST MEDICAL HISTORY Diagnosis Date Adjustment disorder with depressed mood Dysmenorrhea Encounter for insertion or removal of intrauterine contraceptive device 06/12/2011 Multiple sclerosis (HCC) Unspecified asthma(493.90) SPORTS INDUCED, NO PROBLEMS SINCE AGE 16 PAST SURGICAL HISTORY Procedure Laterality Date DELIVERY ONLY 11/11/2009 DELIVERY ONLY 03/31/11 , low transverse ESOPHAGOGASTRODUODENOSCOPY TRANSORAL DIAGNOSTIC 02/18/2018 EGD HYSTEROSCOPY 06/10/2016 in office to remove IUD INSERTION OF IUD 06/2011, 06/10/2016 LAPS SURG CHOLECYSTECTOMY W/CHOLANGIOGRAPHY 01/25/10 Normal IOC PAST SURGICAL HISTORY OF DIAGNOSTIC LAPAROSCOPY UNSPECIFIED ORAL SURGERY PROCEDURE, BY REPORT wisdom teeth removed ALLERGIES Patient has no known allergies. MEDICATIONS baclofen 10 mg tablet Take 1 tablet by mouth in the evening and 3 tablet at bedtime amphetamine-dextroamphetamine XR (ADDERALL XR) 30 mg capsule Take 1 capsule by mouth once daily for 30 days. Patient should start on July 16, 2024. SUMAtriptan (IMITREX) 100 mg tablet Take 1 tablet (100 mg) by mouth as needed for migraine headache (see administration instructions). START AT ONSET OF HEADACHE. MAY REPEAT DOSE AFTER 2 HOURS. topiramate (TOPAMAX) 50 mg tablet TAKE 1 AND 1/2 (ONE AND ONE-HALF) TABLETS BY MOUTH ONCE DAILY AT BEDTIME amantadine HCl (SYMMETREL) 100 mg capsule Take 1 capsule by mouth twice daily DULoxetine (CYMBALTA) 60 mg capsule Take 1 capsule by mouth once daily Cholecalciferol, Vitamin D3, 125 mcg (5,000 unit) cap Take 1 capsule by mouth once daily. albuterol HFA (PROVENTIL HFA, VENTOLIN HFA) 90 mcg/actuation inhaler Inhale 2 Puffs as instructed every 4 hours as needed for wheezing/shortness of breath. ocrelizumab (OCREVUS INTRAVENOUS) Inject intravenously once every 6 months. gabapentin (NEURONTIN) 300 mg capsule TAKE 2 CAPSULES BY MOUTH THREE TIMES DAILY. MAY TAKE ADDITIONAL 300 MG NEEDED FOR PAIN. (Patient not taking: Reported on 10/17/2024) amphetamine-dextroamphetamine XR (ADDERALL XR) 30 mg capsule Take 1 capsule by mouth once daily for 30 days. amphetamine-dextroamphetamine XR (ADDERALL XR) 30 mg capsule Take 1 capsule by mouth once daily for 30 days. Patient should start on June 16, 2024. amphetamine-dextroamphetamine XR (ADDERALL XR) 30 mg capsule Take 1 capsule by mouth once daily for 30 days. Do not start before January 07, 2024. amphetamine-dextroamphetamine XR (ADDERALL XR) 30 mg capsule Take 1 capsule by mouth once daily for 30 days. Do not start before February 06, 2024. amphetamine-dextroamphetamine XR (ADDERALL XR) 30 mg capsule Take 1 capsule by mouth once daily for 30 days. dextroamphetamine-amphetamine (ADDERALL) 10 mg tablet Take 1 tablet by mouth once daily for 30 days. FAMILY HISTORY Problem Relation Age of Onset other (endometrial cancer) Mother Lipids Father Arthritis Maternal Grandmother Asthma Maternal Grandmother Cancer Maternal Grandmother SKIN CANCER Heart Maternal Grandmother Rheumatologic disease Maternal Grandmother Fibromyalgia Cancer Maternal Grandfather Multiple Sclerosis Paternal cousin Social History Tobacco Use Smoking status: Never Smokeless tobacco: Never Vaping Use Vaping status: Never Used Substance Us (more content not included)... [facility] 10-17-2024 History of Present illness Narrative CC: Patient presents with: Chest Congestion: cough, fatigue, headache and sore throat x 4 days HPI: Isac Peres is a 34 year old female who presents to the office with complaint of chest congestion, cough, nonproductive, and sore throat for a few days. Symptoms are worsening Associated symptoms includes sore throat and dyspnea. Denies nausea, vomiting , and diarrhea. Treatments tried include nothing so far. with no relief of symptoms. Sick contacts: unknown. History of asthma, frequent episodes of bronchitis, chronic bronchitis, bronchiectasis or COPD: asthma as a kid Smoker: No Seasonal/environmental allergies: No The ROS is otherwise negative. The patient's pmh, medications, allergies, and past visits are reviewed. PHYSICAL EXAM: BP 112/68 Pulse 84 Temp 37.1 C (98.8 F) Resp 16 Wt 101 kg (222 lb 10.6 oz) LMP 05/22/2024 (Exact Date) SpO2 98% BMI 39.44 kg/m General appearance: alert, cooperative, pleasant, in no acute distress Head: Normocephalic Eyes: EOM's intact, conjunctiva pink and moist, no icterus, sclera white, non-injected Ears: Right ear: External ear/canal- Normal, TM - clear with good landmarks. Left ear: External ear/canal- Normal, TM - clear with good landmarks Oropharynx:mild erythema, without exudates present, Neck: mild cervical adenopathy Heart: Negative. RRR without obvious murmur, gallop, or rubs. No ectopy. Lungs: clear to auscultation, without rales or wheeze, good air exchange PAST MEDICAL HISTORY Diagnosis Date Adjustment disorder with depressed mood Dysmenorrhea Encounter for insertion or removal of intrauterine contraceptive device 06/12/2011 Multiple sclerosis (HCC) Unspecified asthma(493.90) SPORTS INDUCED, NO PROBLEMS SINCE AGE 16 PAST SURGICAL HISTORY Procedure Laterality Date DELIVERY ONLY 11/11/2009 DELIVERY ONLY 03/31/11 , low transverse ESOPHAGOGASTRODUODENOSCOPY TRANSORAL DIAGNOSTIC 02/18/2018 EGD HYSTEROSCOPY 06/10/2016 in office to remove IUD INSERTION OF IUD 06/2011, 06/10/2016 LAPS SURG CHOLECYSTECTOMY W/CHOLANGIOGRAPHY 01/25/10 Normal IOC PAST SURGICAL HISTORY OF DIAGNOSTIC LAPAROSCOPY UNSPECIFIED ORAL SURGERY PROCEDURE, BY REPORT wisdom teeth removed ALLERGIES Patient has no known allergies. MEDICATIONS baclofen 10 mg tablet Take 1 tablet by mouth in the evening and 3 tablet at bedtime amphetamine-dextroamphetamine XR (ADDERALL XR) 30 mg capsule Take 1 capsule by mouth once daily for 30 days. Patient should start on July 16, 2024. SUMAtriptan (IMITREX) 100 mg tablet Take 1 tablet (100 mg) by mouth as needed for migraine headache (see administration instructions). START AT ONSET OF HEADACHE. MAY REPEAT DOSE AFTER 2 HOURS. topiramate (TOPAMAX) 50 mg tablet TAKE 1 & 1/2 (ONE & ONE-HALF) TABLETS BY MOUTH ONCE DAILY AT BEDTIME amantadine HCl (SYMMETREL) 100 mg capsule Take 1 capsule by mouth twice daily DULoxetine (CYMBALTA) 60 mg capsule Take 1 capsule by mouth once daily Cholecalciferol, Vitamin D3, 125 mcg (5,000 unit) cap Take 1 capsule by mouth once daily. albuterol HFA (PROVENTIL HFA, VENTOLIN HFA) 90 mcg/actuation inhaler Inhale 2 Puffs as instructed every 4 hours as needed for wheezing/shortness of breath. ocrelizumab (OCREVUS INTRAVENOUS) Inject intravenously once every 6 months. gabapentin (NEURONTIN) 300 mg capsule TAKE 2 CAPSULES BY MOUTH THREE TIMES DAILY. MAY TAKE ADDITIONAL 300 MG NEEDED FOR PAIN. (Patient not taking: Reported on 10/17/2024) amphetamine-dextroamphetamine XR (ADDERALL XR) 30 mg capsule Take 1 capsule by mouth once daily for 30 days. amphetamine-dextroamphetamine XR (ADDERALL XR) 30 mg capsule Take 1 capsule by mouth once daily for 30 days. Patient should start on June 16, 2024. amphetamine-dextroamphetamine XR (ADDERALL XR) 30 mg capsule Take 1 capsule by mouth once daily for 30 days. Do not start before January 07, 2024. amphetamine-dextroamphetamine XR (ADDERALL XR) 30 mg capsule Take 1 capsule by mouth once daily for 30 days. Do not start before February 06, 2024. amphetamine-dextroamphetamine XR (ADDERALL XR) 30 mg capsule Take 1 capsule by mouth once daily for 30 days. dextroamphetamine-amphetamine (ADDERALL) 10 mg tablet Take 1 tablet by mouth once daily for 30 days. FAMILY HISTORY Problem Relation Age of Onset other (endometrial cancer) Mother Lipids Father Arthritis Maternal Grandmother Asthma Maternal Grandmother Cancer Maternal Grandmother SKIN CANCER Heart Maternal Grandmother Rheumatologic disease Maternal Grandmother Fibromyalgia Cancer Maternal Grandfather Multiple Sclerosis Paternal cousin Social History Tobacco Use Smoking status: Never Smokeless tobacco: Never Vaping Use Vaping status: Never Used Substance Use Topics Alcohol use: No Comment: 1/mo Drug use: No ASSESSMENT/PLAN: 1. Sore throat - ICD9: 462, ICD10: J02.9 (primary diagnosis) - STREP A MOLECULAR (POC) - neg 2. Acute cough - ICD9: 786.2, ICD10: R05.1 - XR CHEST 2V FRONTAL/LAT * * * * Physician Interpretation * * * * EXAMINATION: CHEST RADIOGRAPH (2 VIEW FRONTAL & LATERAL) CLINICAL HISTORY: Acute cough MQ: [id number] EXAM DATE/TIME: 10/17/2024 3:16 PM COMPARISON: 09/17/2023 RESULT: Lines, tubes, and devices: None. Lungs and pleura: No consolidation. No lung mass. No pleural effusion. No pneumothorax. Cardiomediastinal silhouette: Normal cardiomediastinal silhouette. Bones and soft tissues: Unremarkable. IMPRESSION IMPRESSION: No acute radiographic abnormality. Machinist Set Up: FABRICE Transcribe Date/Time: Oct 17 2024 3:17P Dictated by : AYDEE CAMERON MD Viral in nature at this time. Supportive care suggested. No viral testing at this time. Potential red flag symptoms discussed with the patient. Reviewed appropriate action plan to take if red flag symptoms occur. Patient agreeable to treatment plan. Jordan Bajwa APRN.DIRECTOR DIVERSITY documented in this encounter [facility] 10-11-2024 History of Present illness Narrative Images from the original note were not included. [facility] FOLLOWUP/ESTABLISHED PATIENT VIRTUAL VISIT PRINCIPAL NEUROLOGIC DIAGNOSIS: multiple sclerosis DISEASE SUMMARY Date of onset: 2019 Date of diagnosis of MS: NA Disease course at onset: Relapsing-Remitting Current disease course: Progressive with relapses Previous disease therapies: NA Current disease therapy: Ocrevus (started 10/02/22) Most recent MRI brain: 10/06/24 Most recent MRI cervical spine: 02/27/23 Most recent MRI thoracic spine:10/02/23 CSF: NA VZV serology result and date: NA AQP4-IgG: NA MOG-IgG: NA CHIEF COMPLAINT: Follow-up on MS disease modifying therapy INTERVAL HISTORY: Usual treating team: Patricia/Kevin I have communicated my name and active licensure. The patient's identity and physical location were verified at the time of this visit. Either the patient or their legal sales representative health insurance has been informed of the risks and benefits of -- and alternatives to -- treatment through a remote evaluation and consents to proceed with the evaluation remotely. Today's visit is being completed virtually; pt consented. Accompanied by self. Last seen 03/31/24. Currently taking Ocrevus. Last infusion 10/06/24 Notes feelingwas sick right before holidays - started with sore throat, then GI symptoms, felt like lingering shortness of breath Finally starting to feel better today other than fatigue (first day back to work after holidays) Reports increase in pain over the last couple months - was increased the last couple weeks with illness particularly Pain is more constant/heightened - numbness bothersome every third week feels swollen even though no physical change Tingling burning feelings - no change Pain worse when exhausted/tired MS/neurological symptoms worse around time of menstrual cycle - does experience Migraines too - not currently on contraception Tried 1 acupuncture session but insurance didn't cover it - would like to continue if insurance will allow Taking gabapentin 600 mg BID - takes additional midday dose sometimes - second dose is usually around 7:30-8:30 pm Takes baclofen in the evening (10 mg at dinner, 20 mg at bedtime) REVIEW OF SYSTEMS: Mood: PHQ9 responses reviewed and appear below Pain:reviewed on nursing intake documentation Neuro-QoL Functions (higher=better functioning) Flowsheet Row [facility] from 03/31/2024 in [facility] Office Visit from 10/02/2023 in [facility] from 07/03/2023 in [facility] Upper Extremity Domain T Score 45 39 42 Lower Extremity Domain T Score 47 44 42 Cognitive Function Domain T Score 32 27 29 Positive Affect Well Being T Score -- -- -- Ability To Participate In Social Roles T Score 43 40 37 Satisfaction With Social Roles T Score 35 35 35 Neuro-QoL Symptoms (higher=worse symptoms) Flowsheet Row [facility] from 04/28/2024 in [facility] from 03/31/2024 in [facility] from 02/16/2024 in [facility] Sleep Domain T Score -- 63 -- Fatigue Domain T Score -- 63 -- Anxiety Domain T Score -- 48 -- Depression Domain T Score 46 47 49 Stigma Domain T Score -- 54 -- Emotional Behavior Dyscontrol T Score -- -- -- PAST HISTORY was reviewed and updated: PAST MEDICAL HISTORY Diagnosis Date Adjustment disorder with depressed mood Dysmenorrhea Encounter for insertion or removal of intrauterine contraceptive device 06/12/2011 Multiple sclerosis (HCC) Unspecified asthma(493.90) SPORTS INDUCED, NO PROBLEMS SINCE AGE 16 PAST SURGICAL HISTORY Procedure Laterality Date DELIVERY ONLY 11/11/2009 DELIVERY ONLY 03/31/11 , low transverse ESOPHAGOGASTRODUODENOSCOPY TRANSORAL DIAGNOSTIC 02/18/2018 EGD HYSTEROSCOPY 06/10/2016 in office to remove IUD INSERTION OF IUD 06/2011, 06/10/2016 LAPS SURG CHOLECYSTECTOMY W/CHOLANGIOGRAPHY 01/25/10 Normal IOC PAST SURGICAL HISTORY OF DIAGNOSTIC LAPAROSCOPY UNSPECIFIED ORAL SURGERY PROCEDURE, BY REPORT wisdom teeth removed MEDICATIONS and ALLERGIES were reviewed and updated. 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 EXAM: General Appearance: well appearing, in no acute distress Mental status evaluation during the interview and examination showed normal level of consciousness, orientation, language, memory, praxis, and higher intellectual function Affect: Normal Speech: normal RESULTS: Monitoring labs: CBC + Diff Component Value Date WBC 6.98 10/06/2024 HB 14.4 10/06/2024 HCT 43.1 10/06/2024 PLT 356 10/06/2024 ABSLYMPH 1.80 10/06/2024 CMP Component Value Date AST 19 10/06/2024 GLUC 86 10/06/2024 BUN 11 10/06/2024 CREAT 1.07 (H) 10/06/2024 NA 140 10/06/2024 K 4.2 10/06/2024 CHLOR 107 10/06/2024 ALT 22 10/06/2024 MRI brain 10/06/24: IMPRESSION: Multiple intracranial white matter lesions compatible with multiple sclerosis. No new T2 lesions. No significant parenchymal volume loss. Other Significant Intracranial Findings: None ASSESSMENT: Isac Peres is a 34 year old female with multiple sclerosis. Patient is on Ocrevus for DMT. Reports good compliance. Notes illness prior to infusion this time - discussed in future, would suggest delaying infusion x 1-2 weeks (or longer if needed) if experiencing symptoms of illness/infection. Labs drawn with infusion and forwarded to provided/specialists monitoring kidney/liver values. Brain MRI from 10/06/24 reviewed and appears stable. Continue to monitor annually or sooner if new symptoms develop. MRI of the brain and/or spinal cord is being ordered to evaluate for efficacy of multiple sclerosis (MS) disease modifying therapy. Disease activity in MS is often not immediately detectable on history or examination, but is sensitively identified on MRI. If identified, new or active MS lesions on MRI may represent suboptimal response to MS therapy, and would change medical management. She reports an increase in pain over the last several months (worse when fatigued/illness). Will trial adjusting medications - discussed adjusting timing of gabapentin dosing to 600 mg in morning, 600 mg around dinner, and 600 mg at bedtime. Will also continue baclofen 10 mg at dinner, and increase to 30 mg at bedtime. She will try to re-schedule with pain management/acupuncture insurance permitting. PLAN: 1. Continue ocrevus 2. Labs q6 months 3. Brain and c-spine MRI in 1 year 4. Change timing of gabapentin 5. Increase baclofen dose 6. Follow-up with PCP/specialists as directed I spent a total of 30 minutes on the date of the service which included preparing to see the patient, [id number] patient care, completing clinical documentation, obtaining and/or reviewing separately obtained history, counseling and educating the patient/family/caregiver, ordering medications, tests, or procedures, and communicating results to the patient/family/caregiver. Lizet Brown PA-C documented in this encounter [facility] 10-11-2024 Note HNO ID: [id number] Author: LIZET BROWN PA-C Service: ? Author Type: Physician Book Cutter Type: Progress Notes Filed: 10/11/2024 14:55 Note Text: [facility] MULTIPLE SCLEROSIS FOLLOWUP/ESTABLISHED PATIENT VIRTUAL VISIT PRINCIPAL NEUROLOGIC DIAGNOSIS: multiple sclerosis DISEASE SUMMARY Date of onset: 2019 Date of diagnosis of MS: NA Disease course at onset: Relapsing-Remitting Current disease course: Progressive with relapses Previous disease therapies: NA Current disease therapy: Ocrevus (started 10/02/22) Most recent MRI brain: 10/06/24 Most recent MRI cervical spine: 02/27/23 Most recent MRI thoracic spine:10/02/23 CSF: NA VZV serology result and date: NA AQP4-IgG: NA MOG-IgG: NA CHIEF COMPLAINT: Follow-up on MS disease modifying therapy INTERVAL HISTORY: Usual treating team: Patricia/Kevin I have communicated my name and active licensure. The patient's identity and physical location were verified at the time of this visit. Either the patient or their legal sales representative health insurance has been informed of the risks and benefits of -- and alternatives to -- treatment through a remote evaluation and consents to proceed with the evaluation remotely. Today's visit is being completed virtually; pt consented. Accompanied by self. Last seen 03/31/24. Currently taking Ocrevus. Last infusion 10/06/24 Notes feelingwas sick right before holidays - started with sore throat, then GI symptoms, felt like lingering shortness of breath Finally starting to feel better today other than fatigue (first day back to work after holidays) Reports increase in pain over the last couple months - was increased the last couple weeks with illness particularly Pain is more constant/heightened - numbness bothersome every third week feels swollen even though no physical change Tingling burning feelings - no change Pain worse when exhausted/tired MS/neurological symptoms worse around time of menstrual cycle - does experience Migraines too - not currently on contraception Tried 1 acupuncture session but insurance didn't cover it - would like to continue if insurance will allow Taking gabapentin 600 mg BID - takes additional midday dose sometimes - second dose is usually around 7:30-8:30 pm Takes baclofen in the evening (10 mg at dinner, 20 mg at bedtime) REVIEW OF SYSTEMS: Mood: PHQ9 responses reviewed and appear below Pain:reviewed on nursing intake documentation Neuro-QoL Functions (higher=better functioning) Flowsheet Row [facility] from 03/31/2024 in [facility] Office Visit from 10/02/2023 in [facility] from 07/03/2023 in [facility] Upper Extremity Domain T Score 45 39 42 Lower Extremity Domain T Score 47 44 42 Cognitive Function Domain T Score 32 27 29 Positive Affect Well Being T Score -- -- -- Ability To Participate In Social Roles T Score 43 40 37 Satisfaction With Social Roles T Score 35 35 35 Neuro-QoL Symptoms (higher=worse symptoms) Flowsheet Row [facility] from 04/28/2024 in [facility] from 03/31/2024 in [facility] from 02/16/2024 in [facility] Sleep Domain T Score -- 63 -- Fatigue Domain T Score -- 63 -- Anxiety Domain T Score -- 48 -- Depression Domain T Score 46 47 49 Stigma Domain T Score -- 54 -- Emotional Behavior Dyscontrol T Score -- -- -- PAST HISTORY was reviewed and updated: PAST MEDICAL HISTORY Diagnosis Date Adjustment disorder with depressed mood Dysmenorrhea Encounter for insertion or removal of intrauterine contraceptive device 06/12/2011 Multiple sclerosis (HCC) Unspecified asthma(493.90) SPORTS INDUCED, NO PROBLEMS SINCE AGE 16 PAST SURGICAL HISTORY Procedure Laterality Date DELIVERY ONLY 11/11/2009 DELIVERY ONLY 03/31/11 , low transverse ESOPHAGOGASTRODUODENOSCOPY TRANSORAL DIAGNOSTIC 02/18/2018 EGD HYSTEROSCOPY 06/10/2016 in office to remove IUD INSERTION OF IUD 06/2011, 06/10/2016 LAPS SURG CHOLECYSTECTOMY W/CHOLANGIOGRAPHY 01/25/10 Normal IOC PAST SURGICAL HISTORY OF DIAGNOSTIC LAPAROSCOPY UNSPECIFIED ORAL SURGERY PROCEDURE, BY REPORT wisdom teeth removed MEDICATIONS and ALLERGIES were reviewed and updated. 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 [facility] 10-06-2024 History of Present illness Narrative Radiology Service Progress Note PATIENT NAME: Isac Peres DATE OF SERVICE: October 06, 2024 TIME: 12:19 PM PATIENT IDENTITY VERIFICATION COMPLETED USING TWO (2) IDENTIFIERS: Name and Date of confirmed by patient verbally and Name and Date of confirmed by identification band. FALL SCREENING: Has the patient had 2 falls in the last year or 1 fall with injury or currently using an Ambulatory Assistive Device (Walker, Cane, Wheelchair, Crutches, etc.)? No PATIENT GENDER DATA: Female. status: : No status: NO. PATIENT RELEVANT IMPLANT DATA REVIEWED: Yes PATIENT PRESENTS WITH AN IMPLANTABLE OR ATTACHED MEAT CUTTER: No RADIOLOGY DEPARTMENT: MR; Exam(s) Completed: Head: Multiple Sclerosis PERIPHERAL IV DATA: Not applicable SIGNED BY: RT Devi(Roslyn) October 06, 2024 12:19 PM documented in this encounter [facility] 10-06-2024 Note HNO ID: [id number] Author: RICKY KYLE RT(R) Service: Radiology Author Type: Technologist Type: Progress Notes Filed: 10/06/2024 12:37 Note Text: Radiology Service Progress Note PATIENT NAME: Isac Peres DATE OF SERVICE: October 06, 2024 TIME: 12:19 PM PATIENT IDENTITY VERIFICATION COMPLETED USING TWO (2) IDENTIFIERS: Name and Date of confirmed by patient verbally and Name and Date of confirmed by identification band. FALL SCREENING: Has the patient had 2 falls in the last year or 1 fall with injury or currently using an Ambulatory Assistive Device (Walker, Cane, Wheelchair, Crutches, etc.)? No PATIENT GENDER DATA: Female. status: : No status: NO. PATIENT RELEVANT IMPLANT DATA REVIEWED: Yes PATIENT PRESENTS WITH AN IMPLANTABLE OR ATTACHED MEAT CUTTER: No RADIOLOGY DEPARTMENT: MR; Exam(s) Completed: Head: Multiple Sclerosis PERIPHERAL IV DATA: Not applicable SIGNED BY: RT Devi(Roslyn) October 06, 2024 12:[address] [facility] 10-03-2024 Telephone encounter Note Patient notified of results and provider's instructions. Patient verbalizes understanding. Francesca Guidry RN [facility] 10-03-2024 Miscellaneous Notes Patient notified of results and provider's instructions. Patient verbalizes understanding. Francesca Guidry RN Left message for patient to return call. Rupinder Cabrera MA Vaginal test was positive for yeast. Prescription for Monistat cream sent per visit provider note. documented in this encounter [facility] 10-03-2024 Telephone encounter Note Left message for patient to return call. Rupinder Cabrera MA [facility] 10-03-2024 Telephone encounter Note Vaginal test was positive for yeast. Prescription for Monistat cream sent per visit provider note. [facility] 10-02-2024 Note HNO ID: [id number] Author: JORDAN BAJWA APRN.DIRECTOR DIVERSITY Service: ? Author Type: Nurse Practitioner Type: Progress Notes Filed: 10/02/2024 14:04 Note Text: CC: Patient presents with: UTI HPI Isac Peres is a 34 year old female who presents with complaint of possible UTI. These symptoms have been present for few days. Associated symptoms: abnormal vaginal discharge and vaginal itching Denies: fever, chills, sweats, abdominal pain, and flank pain Treatments: nothing The ROS was otherwise negative. PMH, Medications, labs, allergies, and recent past visits with PCP were reviewed and updated as able. PHYSICAL EXAM: BP 119/83 Pulse 82 Temp 36.7 ?C (98 ?F) (Left Tympanic) Resp (P) 16 Wt 101.7 kg (224 lb 3.3 oz) LMP 05/22/2024 (Exact Date) SpO2 96% BMI 39.72 kg/m? General: Well appearing and alert CV: Regular rate and rhythm without obvious murmur Lungs: clear to auscultation bilaterally Back: straight and symmetric Abdomen: mild tenderness over mid lowe abdoman PAST MEDICAL HISTORY Diagnosis Date Adjustment disorder with depressed mood Dysmenorrhea Encounter for insertion or removal of intrauterine contraceptive device 06/12/2011 Multiple sclerosis (HCC) Unspecified asthma(493.90) SPORTS INDUCED, NO PROBLEMS SINCE AGE 16 PAST SURGICAL HISTORY Procedure Laterality Date DELIVERY ONLY 11/11/2009 DELIVERY ONLY 03/31/11 , low transverse ESOPHAGOGASTRODUODENOSCOPY TRANSORAL DIAGNOSTIC 02/18/2018 EGD HYSTEROSCOPY 06/10/2016 in office to remove IUD INSERTION OF IUD 06/2011, 06/10/2016 LAPS SURG CHOLECYSTECTOMY W/CHOLANGIOGRAPHY 01/25/10 Normal IOC PAST SURGICAL HISTORY OF DIAGNOSTIC LAPAROSCOPY UNSPECIFIED ORAL SURGERY PROCEDURE, BY REPORT wisdom teeth removed ALLERGIES Patient has no known allergies. MEDICATIONS gabapentin (NEURONTIN) 300 mg capsule TAKE 2 CAPSULES BY MOUTH THREE TIMES DAILY. MAY TAKE ADDITIONAL 300 MG NEEDED FOR PAIN. SUMAtriptan (IMITREX) 100 mg tablet Take 1 tablet (100 mg) by mouth as needed for migraine headache (see administration instructions). START AT ONSET OF HEADACHE. MAY REPEAT DOSE AFTER 2 HOURS. baclofen 10 mg tablet Take 1 tablet by mouth in the evening and 2 tablet at bedtime topiramate (TOPAMAX) 50 mg tablet TAKE 1 AND 1/2 (ONE AND ONE-HALF) TABLETS BY MOUTH ONCE DAILY AT BEDTIME amantadine HCl (SYMMETREL) 100 mg capsule Take 1 capsule by mouth twice daily DULoxetine (CYMBALTA) 60 mg capsule Take 1 capsule by mouth once daily Cholecalciferol, Vitamin D3, 125 mcg (5,000 unit) cap Take 1 capsule by mouth once daily. albuterol HFA (PROVENTIL HFA, VENTOLIN HFA) 90 mcg/actuation inhaler Inhale 2 Puffs as instructed every 4 hours as needed for wheezing/shortness of breath. ocrelizumab (OCREVUS INTRAVENOUS) Inject intravenously once every 6 months. amphetamine-dextroamphetamine XR (ADDERALL XR) 30 mg capsule Take 1 capsule by mouth once daily for 30 days. amphetamine-dextroamphetamine XR (ADDERALL XR) 30 mg capsule Take 1 capsule by mouth once daily for 30 days. Patient should start on June 16, 2024. amphetamine-dextroamphetamine XR (ADDERALL XR) 30 mg capsule Take 1 capsule by mouth once daily for 30 days. Patient should start on July 16, 2024. amphetamine-dextroamphetamine XR (ADDERALL XR) 30 mg capsule Take 1 capsule by mouth once daily for 30 days. Do not start before January 07, 2024. amphetamine-dextroamphetamine XR (ADDERALL XR) 30 mg capsule Take 1 capsule by mouth once daily for 30 days. Do not start before February 06, 2024. amphetamine-dextroamphetamine XR (ADDERALL XR) 30 mg capsule Take 1 capsule by mouth once daily for 30 days. dextroamphetamine-amphetamine (ADDERALL) 10 mg tablet Take 1 tablet by mouth once daily for 30 days. FAMILY HISTORY Problem Relation Age of Onset other (endometrial cancer) Mother Lipids Father Arthritis Maternal Grandmother Asthma Maternal Grandmother Cancer Maternal Grandmother SKIN CANCER Heart Maternal Grandmother Rheumatologic disease Maternal Grandmother Fibromyalgia Cancer Maternal Grandfather Multiple Sclerosis Paternal cousin Social History Tobacco Use Smoking status: Never Smokeless tobacco: Never Vaping Use Vaping status: Never Used Substance Use Topics Alcohol use: No Comment: 1/mo Drug use: No ASSESSMENT/PLAN: 1. Dysuria - ICD9: 788.1, ICD10: R30.0 (primary diagnosis) - UA DIP, URINE (POC) - URINE CULTURE 2. Vaginal itching - ICD9: 698.1, ICD10: N89.8 - BACTERIAL VAGINOSIS NAAT - ANNETTE/TRICHOMONAS NAAT - NYSTATIN 100,000 UNIT/GRAM TOPICAL CREAM - if positive for yeast can call in a stronger cream. Self swab no concern for std Prescription instructions reviewed with patient as applicable. Potential red flag symptoms discussed with the patient. Reviewed appropriate action plan to take if red flag symptoms occur. Patient agreeable to treatment plan. Will follow up with directory carrier (more content not included)... [facility] 10-02-2024 History of Present illness Narrative CC: Patient presents with: UTI HPI Isac Peres is a 34 year old female who presents with complaint of possible UTI. These symptoms have been present for few days. Associated symptoms: abnormal vaginal discharge and vaginal itching Denies: fever, chills, sweats, abdominal pain, and flank pain Treatments: nothing The ROS was otherwise negative. PMH, Medications, labs, allergies, and recent past visits with PCP were reviewed and updated as able. PHYSICAL EXAM: BP 119/83 Pulse 82 Temp 36.7 C (98 F) (Left Tympanic) Resp (P) 16 Wt 101.7 kg (224 lb 3.3 oz) LMP 05/22/2024 (Exact Date) SpO2 96% BMI 39.72 kg/m General: Well appearing and alert CV: Regular rate and rhythm without obvious murmur Lungs: clear to auscultation bilaterally Back: straight and symmetric Abdomen: mild tenderness over mid lowe abdoman PAST MEDICAL HISTORY Diagnosis Date Adjustment disorder with depressed mood Dysmenorrhea Encounter for insertion or removal of intrauterine contraceptive device 06/12/2011 Multiple sclerosis (HCC) Unspecified asthma(493.90) SPORTS INDUCED, NO PROBLEMS SINCE AGE 16 PAST SURGICAL HISTORY Procedure Laterality Date DELIVERY ONLY 11/11/2009 DELIVERY ONLY 03/31/11 , low transverse ESOPHAGOGASTRODUODENOSCOPY TRANSORAL DIAGNOSTIC 02/18/2018 EGD HYSTEROSCOPY 06/10/2016 in office to remove IUD INSERTION OF IUD 06/2011, 06/10/2016 LAPS SURG CHOLECYSTECTOMY W/CHOLANGIOGRAPHY 01/25/10 Normal IOC PAST SURGICAL HISTORY OF DIAGNOSTIC LAPAROSCOPY UNSPECIFIED ORAL SURGERY PROCEDURE, BY REPORT wisdom teeth removed ALLERGIES Patient has no known allergies. MEDICATIONS gabapentin (NEURONTIN) 300 mg capsule TAKE 2 CAPSULES BY MOUTH THREE TIMES DAILY. MAY TAKE ADDITIONAL 300 MG NEEDED FOR PAIN. SUMAtriptan (IMITREX) 100 mg tablet Take 1 tablet (100 mg) by mouth as needed for migraine headache (see administration instructions). START AT ONSET OF HEADACHE. MAY REPEAT DOSE AFTER 2 HOURS. baclofen 10 mg tablet Take 1 tablet by mouth in the evening and 2 tablet at bedtime topiramate (TOPAMAX) 50 mg tablet TAKE 1 & 1/2 (ONE & ONE-HALF) TABLETS BY MOUTH ONCE DAILY AT BEDTIME amantadine HCl (SYMMETREL) 100 mg capsule Take 1 capsule by mouth twice daily DULoxetine (CYMBALTA) 60 mg capsule Take 1 capsule by mouth once daily Cholecalciferol, Vitamin D3, 125 mcg (5,000 unit) cap Take 1 capsule by mouth once daily. albuterol HFA (PROVENTIL HFA, VENTOLIN HFA) 90 mcg/actuation inhaler Inhale 2 Puffs as instructed every 4 hours as needed for wheezing/shortness of breath. ocrelizumab (OCREVUS INTRAVENOUS) Inject intravenously once every 6 months. amphetamine-dextroamphetamine XR (ADDERALL XR) 30 mg capsule Take 1 capsule by mouth once daily for 30 days. amphetamine-dextroamphetamine XR (ADDERALL XR) 30 mg capsule Take 1 capsule by mouth once daily for 30 days. Patient should start on June 16, 2024. amphetamine-dextroamphetamine XR (ADDERALL XR) 30 mg capsule Take 1 capsule by mouth once daily for 30 days. Patient should start on July 16, 2024. amphetamine-dextroamphetamine XR (ADDERALL XR) 30 mg capsule Take 1 capsule by mouth once daily for 30 days. Do not start before January 07, 2024. amphetamine-dextroamphetamine XR (ADDERALL XR) 30 mg capsule Take 1 capsule by mouth once daily for 30 days. Do not start before February 06, 2024. amphetamine-dextroamphetamine XR (ADDERALL XR) 30 mg capsule Take 1 capsule by mouth once daily for 30 days. dextroamphetamine-amphetamine (ADDERALL) 10 mg tablet Take 1 tablet by mouth once daily for 30 days. FAMILY HISTORY Problem Relation Age of Onset other (endometrial cancer) Mother Lipids Father Arthritis Maternal Grandmother Asthma Maternal Grandmother Cancer Maternal Grandmother SKIN CANCER Heart Maternal Grandmother Rheumatologic disease Maternal Grandmother Fibromyalgia Cancer Maternal Grandfather Multiple Sclerosis Paternal cousin Social History Tobacco Use Smoking status: Never Smokeless tobacco: Never Vaping Use Vaping status: Never Used Substance Use Topics Alcohol use: No Comment: 1/mo Drug use: No ASSESSMENT/PLAN: 1. Dysuria - ICD9: 788.1, ICD10: R30.0 (primary diagnosis) - UA DIP, URINE (POC) - URINE CULTURE 2. Vaginal itching - ICD9: 698.1, ICD10: N89.8 - BACTERIAL VAGINOSIS NAAT - ANNETTE/TRICHOMONAS NAAT - NYSTATIN 100,000 UNIT/GRAM TOPICAL CREAM - if positive for yeast can call in a stronger cream. Self swab no concern for std Prescription instructions reviewed with patient as applicable. Potential red flag symptoms discussed with the patient. Reviewed appropriate action plan to take if red flag symptoms occur. Patient agreeable to treatment plan. Will follow up with directory carrier if symptoms worsen or tests are negative. Jordan Bajwa APRN.BRANDON documented in this encounter [facility] 08-04-2024 Telephone encounter Note Summary: appointment lvm for patient to call so we can get her appointmemt rescheduled with dr quintanilla [facility] 08-04-2024 Miscellaneous Notes Summary: appointment lvm for patient to call so we can get her appointmemt rescheduled with dr quintanilla Spoke with patient. Given message from provider's office. Patient verbalizes understanding. There is an previous lab order for UA Lilo Schulz RN Left message for patient to return call. Rupinder Cabrera MA Please notify that the urine culture showed no infection. May continue taking the antibiotic if symptoms are improving. If symptoms persist/worsen f/u with primary care. Hematuria noted on ua, patient should have urine retested with pcp in 2-4 weeks to see if persisting. documented in this encounter [facility] 07-21-2024 Note HNO ID: [id number] Author: DEION MEYER R Ac Service: ? Author Type: Diplomat of Acupuncture Type: Progress Notes Filed: 07/21/2024 17:17 Note Text: Isac Peres a 33 year old female presents to the acupuncture clinic on 07/21/24 for an initial consultation. Patient identity confirmed by name and : Yes Chief Complaint: Pain in whole body due to MS SUBJECTIVE Patient presents with pain in multiple body area. The symptoms from MS began 7-8 years ago. Some pain in the chest area and headache. The headache was severe and it took 3 years until. Numbness and tingling went later in the upper and lower limb. She still has tightness sensation in the chest. RA: family history Eating fish: from [employer] Nausea: associated her period Dizziness: associated flare up of the symptoms or getting recurrent migraine ; denying persistent dizziness: associated her nausea as well Sleep: trouble falling in sleep, does not stay consistently Appetite: nausea, does not want to eat Bowel movement: every 3 days (constipated) since high school Urination: frequent urination (de-sensitized type of sensation in the pelvic and lower abdominal region) [facility] [address] [address] Dept: [phone] Isac Garciatrevor : 1990 [facility] Acupuncture Intake Form (For Patient Review Regarding Diagnostic Exam) I have received a diagnostic exam by physician or chiropractor within the last six months regarding the condition for which I am seeking treatment. 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 Date: 07/21/24 The patient's history is well detailed in the EMR. Current view: Showing all answers [facility] [employer] Additional Demo Question 07/19/2024 8:12 PM EDT - Filed by Patient Is this visit related to an accident, other than Workers' Compensation? No Is this visit related to Workers' Compensation? No Do you need an gasoline tractor operator? No Promis Cat V1.0 - Depression Question 07/19/2024 8:13 PM EDT - Filed by Patient I felt depressed Never I felt unhappy Rarely I felt sad Rarely I felt discouraged about the future Rarely PROMIS Depression T-Score (range: 10 - 90) 48 (within normal limits) Ccf Promis Cat V2.0-Physical Function-28 Days Question 07/19/2024 8:13 PM EDT - Filed by Patient 05/19/2024 1:49 PM EDT - Filed by Patient 04/19/2024 10:47 AM EDT - Filed by Patient PROMIS Physical Function T-Score (range: 10 - 90) 39 (moderate dysfunction) 40 (mild dysfunction) 41 (mild dysfunction) PROMIS Physical Function Percentile (range: 0 - 100) 14 16 18 Ccf Promis Cat V1.0 - Fatigue-28 Days Question 07/19/2024 8:13 PM EDT - Filed by Patient 05/19/2024 1:48 PM EDT - Filed by Patient PROMIS Fatigue T-Score (range: 10 - 90) 66 (moderate) 69 (moderate) PROMIS Fatigue Percentile (range: 0 - 100) 5 3 Ccf Promis Cat V1.0-Anxiety 28 Days Question 07/19/2024 8:14 PM EDT - Filed by Patient 05/19/2024 1:48 PM EDT - Filed by Patient PROMIS Anxiety T-Score (range: 10 - 90) 49 (within normal limits) 48 (within normal limits) PROMIS Anxiety Percentile (range: 0 - 100) 54 58 Ccf Neuro-Qol Cat V2.0 Cognitive Function-28 Days Question 07/19/2024 8:14 PM EDT - Filed by Patient 05/19/2024 1:50 PM EDT - Filed by Patient Neuro-QoL - Cognitive Function T-Score (range: 10 - 90) 34 (moderate dysfunction) 31 (moderate dysfunction) Neuro-QoL Cognitive Function Percentile (range: 0 - 100) 5 3 Ccf Promis Cat V1.0-Satisfaction With Social Roles-28 Days Question 07/19/2024 8:15 PM EDT - Filed by Patient 05/19/2024 1:44 PM EDT - Filed by Patient PROMIS - Satisfaction with Participation in Social Roles T-Score (range: 10 - 90) 34 (Low) 32 (Low) PROMIS Social Role Satisfaction Percentile (range: 0 - 100) 5 4 Ccf Promis Cat V1.1-Pain Interference-28 Days Question 07/19/2024 8:15 PM EDT - Filed by Patient 05/19/2024 1:43 PM EDT - Filed by Patient PROMIS Pain Interference T-Score (range: 10 - 90) (range: 10 - 90) 66 (moderate) 67 (moderate) PROMIS Pain Interference Percentile (range: 0 - 100) 5 4 Ccf Promis Cat V1.0-Sleep Disturbance-28 Days Question 07/19/2024 8:16 PM EDT - Filed by Patient 05/19/2024 1:47 PM EDT - Filed by Patient PROMIS Sleep Disturbance T-Score (range: 10 - 90) 58 (mild) 59 (mild) PROMIS Sleep Disturbance Percentile (range: 0 - 100) 21 18 [facility] [employer] [facility]upuncture Intake Form Question 07/19/2024 8:28 PM EDT - Filed by Patient 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 No Are you currently being treated with chemotherapy? No Please check all that apply: None apply Primary Reason for Treatment: Pain and other sensations from MS Have you received a medical diagnosis? Yes If Yes, please explain: MS Have you had any medical imaging? Yes If Yes, please exp (more content not included)... [facility] 07-21-2024 History of Present illness Narrative Images from the original note were not included. Isac Peres a 33 year old female presents to the acupuncture clinic on 07/21/24 for an initial consultation. Patient identity confirmed by name and : Yes Chief Complaint: Pain in whole body due to MS SUBJECTIVE Patient presents with pain in multiple body area. The symptoms from MS began 7-8 years ago. Some pain in the chest area and headache. The headache was severe and it took 3 years until. Numbness and tingling went later in the upper and lower limb. She still has tightness sensation in the chest. RA: family history Eating fish: from [employer] Nausea: associated her period Dizziness: associated flare up of the symptoms or getting recurrent migraine ; denying persistent dizziness: associated her nausea as well Sleep: trouble falling in sleep, does not stay consistently Appetite: nausea, does not want to eat Bowel movement: every 3 days (constipated) since high school Urination: frequent urination (de-sensitized type of sensation in the pelvic and lower abdominal region) [facility] [address] [address] Dept: [phone] Isac Peres : 1990 [facility] Acupuncture Intake Form (For Patient Review Regarding Diagnostic Exam) I have received a diagnostic exam by physician or chiropractor within the last six months regarding the condition for which I am seeking treatment. 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 Date: 07/21/24 The patient's history is well detailed in the EMR. Current view: Showing all answers [facility]cf [employer] Additional Demo Question 07/19/2024 8:12 PM EDT - Filed by Patient Is this visit related to an accident, other than Workers' Compensation? No Is this visit related to Workers' Compensation? No Do you need an gasoline tractor operator? No Promis Cat V1.0 - Depression Question 07/19/2024 8:13 PM EDT - Filed by Patient I felt depressed Never I felt unhappy Rarely I felt sad Rarely I felt discouraged about the future Rarely PROMIS Depression T-Score (range: 10 - 90) 48 (within normal limits) Ccf Promis Cat V2.0-Physical Function-28 Days Question 07/19/2024 8:13 PM EDT - Filed by Patient 05/19/2024 1:49 PM EDT - Filed by Patient 04/19/2024 10:47 AM EDT - Filed by Patient PROMIS Physical Function T-Score (range: 10 - 90) 39 (moderate dysfunction) 40 (mild dysfunction) 41 (mild dysfunction) PROMIS Physical Function Percentile (range: 0 - 100) 14 16 18 Ccf Promis Cat V1.0 - Fatigue-28 Days Question 07/19/2024 8:13 PM EDT - Filed by Patient 05/19/2024 1:48 PM EDT - Filed by Patient PROMIS Fatigue T-Score (range: 10 - 90) 66 (moderate) 69 (moderate) PROMIS Fatigue Percentile (range: 0 - 100) 5 3 Ccf Promis Cat V1.0-Anxiety 28 Days Question 07/19/2024 8:14 PM EDT - Filed by Patient 05/19/2024 1:48 PM EDT - Filed by Patient PROMIS Anxiety T-Score (range: 10 - 90) 49 (within normal limits) 48 (within normal limits) PROMIS Anxiety Percentile (range: 0 - 100) 54 58 Ccf Neuro-Qol Cat V2.0 Cognitive Function-28 Days Question 07/19/2024 8:14 PM EDT - Filed by Patient 05/19/2024 1:50 PM EDT - Filed by Patient Neuro-QoL - Cognitive Function T-Score (range: 10 - 90) 34 (moderate dysfunction) 31 (moderate dysfunction) Neuro-QoL Cognitive Function Percentile (range: 0 - 100) 5 3 Ccf Promis Cat V1.0-Satisfaction With Social Roles-28 Days Question 07/19/2024 8:15 PM EDT - Filed by Patient 05/19/2024 1:44 PM EDT - Filed by Patient PROMIS - Satisfaction with Participation in Social Roles T-Score (range: 10 - 90) 34 (Low) 32 (Low) PROMIS Social Role Satisfaction Percentile (range: 0 - 100) 5 4 Ccf Promis Cat V1.1-Pain Interference-28 Days Question 07/19/2024 8:15 PM EDT - Filed by Patient 05/19/2024 1:43 PM EDT - Filed by Patient PROMIS Pain Interference T-Score (range: 10 - 90) (range: 10 - 90) 66 (moderate) 67 (moderate) PROMIS Pain Interference Percentile (range: 0 - 100) 5 4 Ccf Promis Cat V1.0-Sleep Disturbance-28 Days Question 07/19/2024 8:16 PM EDT - Filed by Patient 05/19/2024 1:47 PM EDT - Filed by Patient PROMIS Sleep Disturbance T-Score (range: 10 - 90) 58 (mild) 59 (mild) PROMIS Sleep Disturbance Percentile (range: 0 - 100) 21 18 [facility] Intake Form Question 07/19/2024 8:28 PM EDT - Filed by Patient 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 No Are you currently being treated with chemotherapy? No Please check all that apply: None apply Primary Reason for Treatment: Pain and other sensations from MS Have you received a medical diagnosis? Yes If Yes, please explain: MS Have you had any medical imaging? Yes If Yes, please explain: Lots of scans How long have you had these symptoms? Getting worse over the last 4 years How do these conditions impair your daily activities? The affect work and home life daily Other treatments you have used: Meds What makes your symptoms better? Sometimes- rest, meds, heat or ice What makes your symptoms worse? Overuse, uncomfortable/cramped positions Are you seeking treatment for pain? Yes PLEASE COMPLETE IF YOU ARE SEEKING TREATMENT FOR PAIN: Please describe your pain level (0 no pain at all to 10 being the worst pain): 7 Pain character: Fixed at one place Generalized Constant Specify how frequently: Some places is constant- some places get worse with MS symptoms and flares Pain quality: Stiff Dull Achy Numb/Heavy Burning Pain worse with: Movement Weather Please be specific: Pain better with: Pressure Cold Heat Please be specific: How did the pain start? Gradually How often are you experiencing pain: Pain is daily, it just changes sometimes depending on current symptoms Was pain caused by an injury? No Current and/or prior treatment for this pain: None Are you taking any pain medication (prescriptions and over the counter): Yes If Yes, name and dosage: No over the counter, just prescribed meds in chart Using the pictures below, indicate directly on the figures the area(s) where you are experiencing pain and numbness. [facility] Document/Image Upload Question 07/19/2024 8:28 PM EDT - Filed by Patient Photo ID If there are images or documents you'd like to share with your provider during your visit, you may upload up to a total of five files. For body images use the pencil icon to label your image. When labeling the image, please use the following format: The name of the body part followed by the side. For example, Back of Right Forearm or Lower Left Leg. Previous Responses Myc Provider Understanding Current Health Wellness Question 05/19/2024 1:43 PM EDT - Filed by Patient These questions will help my provider understand my health Agree OBJECTIVE: Physical Exam: Tenderness: abdomen, lower limbs Pain with palpation: none ROM: normal Orthopedic Tests: none Tightness: abdomen, lower limbs and head Erin/Trigger points: none Visual Inspection Discoloration: none (red facial complexion) Edema: none Gait/Ambulation: normal [place]ima: ok Qi/Patient vitality: fair Alert, No distress, and Cooperative Well-Groomed and Pleasant Normal TCM Tongue: Deep red tongue, strawberry like surface with thick dry yellow coating, red tip TCM Pulse: sl. Racing[place] ASSESSMENT Patient presents with signs and symptoms consistent with the diagnosis. Patient would benefit from acupuncture therapy to address listed deficiencies and return to PLOF. Pt was educated on symptoms, prognosis, plan of care and activity modifications. Pt verbalized understanding and agreed to begin care. TCM Pattern: Headaches (primary encounter diagnosis) Numbness in both legs due to LV qi stagnation leading to LV blood stagnation TCM Treatment Principle: Soothe LV Qi and dispel blood stasis PLAN OF CARE Counseled patient on risks of acupuncture treatment including pain, infection, bleeding, and no relief of pain. The patient was positioned comfortably. There was no evidence of infection at the site of needle insertions. Counseled patient on differences between Shared Acupuncture Medical Appointment and Private Visit follow-ups. Patient is a suitable candidate for Shared Acupuncture Medical Appointments (LAURA): No Recommended Treatment Schedule: Acupuncture 4-5 sessions until re-eval (10 days apart between visits) Patient will then be re-evaluated for therapeutic effect. Clinical Objective: Therapeutic Short Term Goals: Reduce pain by 20% - 25% in 4 visits Improve ADLs Informed Consent Capture: RBAPC and equipment discussed with patient and Informed Consent was gathered. Intake form located in patient file. Acupuncture Treatment: Treatment/Needle Set 1, Supine: Points: Yin Riley, ear lima men, GB13, LI4, SJ5, ST36, ST37, GB41, ST43 15 minutes face to face with patient for set 1 Treatment/Needle Set 2, Supine: Points: REN14, REN13, REN12, ST25, GB25, SP8, SP6, LV3 10 minutes face to face with patient for set 2 Holmen were retained for 30 minutes # of needles inserted: 30 # of needles withdrawn: 30 Adjunct techniques used: TDP Infrared Heat Lamp- Applied to Feet Patient tolerated the procedure well. UNIVERSAL PROTOCOL / SAFETY CHECKLIST Procedure to be Performed: Acupuncture Sign In: A Moment of CARE was completed. Personnel directly involved with the procedure wore the appropriate PPE (Personal Protective Equipment). Patient/Surrogate Stated/Verified: PATIENT VERIFIED(optional for EMERGENT procedures): Patient name, Date of , Relevant allergies, and The intended procedure Time Out Communication: Intended patient and procedure match the source documents. Consent documented and matches the intended procedure. Sign Out: SIGN OUT (optional for EMERGENT procedures): All instruments, equipment, possible retained foreign bodies accounted for. Roslyn Orosco Provider Name: Roslyn Orosco 40 Total minutes face to face time spent with patient Acupuncture and Swedish herbal therapy are not a substitute for conventional medical diagnosis and treatment. Patient agrees that either: 1. A diagnostic exam has been performed by a physician or chiropractor within the last six months regarding the condition for which they are seeking acupuncture treatment. or 2. If no diagnostic exam by a physician or chiropractor has been done within the last six months regarding the condition for which patient is seeking treatment, the [employer]er, per [place] Law, recommends that this diagnostic exam be performed. documented in this encounter [facility] 06-22-2024 Note Addended by: CHIARA PEDERSEN on: 06/22/2024 08:06 AM Modules accepted: Orders [facility] 06-22-2024 Miscellaneous Notes Addended by: CHIARA PEDERSEN on: 06/22/2024 08:06 AM Modules accepted: Orders The following approved medication requests have been transmitted electronically. Requested Prescriptions Signed Prescriptions Disp Refills azithromycin (ZITHROMAX Z-MAXIMILIAN) 250 mg tablet 6 tablet 0 Sig: Take 2 tablets day one, then, 1 tablet daily until gone. Chiara Pedersen APRN.CNP Please see pt message and advise. Pt was seen in on 06/16/24. Callie George MA documented in this encounter [facility] 06-22-2024 Telephone encounter Note The following approved medication requests have been transmitted electronically. Requested Prescriptions Signed Prescriptions Disp Refills azithromycin (ZITHROMAX Z-MAXIMILIAN) 250 mg tablet 6 tablet 0 Sig: Take 2 tablets day one, then, 1 tablet daily until gone. Chiara Pedersen APRN.BRANDON [facility] 06-21-2024 History of Present illness Narrative Radiology Service Progress Note PATIENT NAME: Isac Peres DATE OF SERVICE: June 21, 2024 TIME: 2:45 PM PATIENT IDENTITY VERIFICATION COMPLETED USING TWO (2) IDENTIFIERS: Name and Date of confirmed by patient verbally. FALL SCREENING: Has the patient had 2 falls in the last year or 1 fall with injury or currently using an Ambulatory Assistive Device (Walker, Cane, Wheelchair, Crutches, etc.)? No PATIENT GENDER DATA: Female. status: : No status: NO. PATIENT RELEVANT IMPLANT DATA REVIEWED: Not Applicable PATIENT PRESENTS WITH AN IMPLANTABLE OR ATTACHED MEAT CUTTER: No RADIOLOGY DEPARTMENT: Ultrasound PERIPHERAL IV DATA: Not applicable SIGNED BY: Talisha Egan RDMS RVT June 21, 2024 2:45 PM documented in this encounter [facility] 06-21-2024 History of Present illness Narrative Fibroscan Report Date performed: June 21, 2024 Performed by: Quita Parks LPN Interpreted by: Lilo Jennings APRN, CNP Patient fasted 3 hours:Yes Indication: Elevated Alkaline Phosphatase Level Technical difficulties: None. Result: The reading was adequate. Please refer to get images report for individual readings Number of readings: 10 IQR %: 13 E (kpa): 4.0 CAP: 199 Impression The liver stiffness is 4.0 kPa which corresponds to 94% chance of stage F0-F2 fibrosis. The CAP analysis showed grade S0 of liver steatosis. Stage of liver fibrosis based on above kPa: A 94% chance of stage 0-2 fibrosis A 6% chance of stage 3-4 fibrosis (advanced fibrosis) A <1% chance of stage 4 fibrosis (cirrhosis). A kPa >20 indicates a high likelihood of stage 4 fibrosis/cirrhosis, consider further testing to confirm and referral to hepatology. Lilo Jennings APRN.DIRECTOR DIVERSITY Others/All Fibroscan Fibrosis Risk <7 kPA = F0-F2 94%, F3+F4 6%, F4 <1% <10 kPA = F0-F2 88%, F3+F4 12%, F4 1.8% 10-15 kPA = F0-F2 47%, F3+F4 53%, F4 1.9% >15 kPA = F0-F2 17%, F3+F4 83%, F4 61% Grade CAP value up to 237 dB/M corresponds to S0 (< 10 % Fat) CAP value between (238 - 258 dB/M) corresponds to S1 (>/= 11 % Fat) CAP value between (259 - 289 dB/M) corresponds to S2 (>/= 33 % Fat) CAP value > 290dB/M corresponds to S3 (>/= 67 % Fat) stage 0 ( S0:< 10 % steatosis) stage 1 (>/= S1: 11%-33% steatosis) stage 2 (>/= S2: 34%-66% steatosis) stage 3 (>/= S3: > 66% steatosis) Reference Tony Y, Anton Q, Tony T, Treva J, Tony H, Martin T. Controlled attenuation parameter for assessment of hepatic steatosis grades: a diagnostic meta-analysis. Int J Clin Exp Med. 2015 Jul 15;8(10):86415-75. PMID: 83006331; PMCID: [id number]. Hang Arzate, Taylor SOSA, Summer M, Sumit F, Ni J, Max O, Jareth F, Felix M, Naseem G, Claire A, Dino E, Ghulam L, Chano Lazar, Jacob A, Zoran U, Enoch S, Genevieve P, Brittny V, Ramey V, Fran M, Helga PAUL. Refining the Baveno elastography criteria for the definition of compensated advanced chronic liver disease. J Hepatol. 2020;74(5):5563-5823. doi: 10.1016/j.ep.2020.11.050. Epub 2019Sep 12. PMID: 66175910. Franchesca Arzate, Shira Ayala, Rocio Arzate, Richard Arzate, Marylu Sims, Rose Krause, Favian Krause, Gaby Mcgowan. [facility] practice guidance on the clinical assessment and management of nonalcoholic fatty liver disease. Hepatology. 2022;77(5):1891-4366. doi:10.1097/[id number] documented in this encounter [facility] 06-21-2024 History of Present illness Narrative 33 yo woman referred for further evaluation of an elevated alkaline phosphatase level by Dr. Annie Justin MD Remainder of past medical history is significant for: -h/o MS -h/o migraine -h/o asthma -h/o obesity; max 250# -s/p lap jose 01/2010 -, s/p CS x 2 -s/p laparoscopy for ovarian cysts Liver history is significant for the dx of elevated alk phos -fractionated -> predom liver origin -s/p us done IMPRESSION: Status post cholecystectomy; otherwise unremarkable sonographic exam of the right upper quadrant abdomen. Current Outpatient Medications Medication Sig doxycycline (VIBRA-TABS) 100 mg tablet Take 1 tablet by mouth two times a day for 7 days. gabapentin (NEURONTIN) 300 mg capsule TAKE 2 CAPSULES BY MOUTH THREE TIMES DAILY. MAY TAKE ADDITIONAL 300 MG NEEDED FOR PAIN. amphetamine-dextroamphetamine XR (ADDERALL XR) 30 mg capsule Take 1 capsule by mouth once daily for 30 days. Patient should start on June 16, 2024. [START ON 07/16/2024] amphetamine-dextroamphetamine XR (ADDERALL XR) 30 mg capsule Take 1 capsule by mouth once daily for 30 days. Patient should start on July 16, 2024. SUMAtriptan (IMITREX) 100 mg tablet Take 1 tablet (100 mg) by mouth as needed for migraine headache (see administration instructions). START AT ONSET OF HEADACHE. MAY REPEAT DOSE AFTER 2 HOURS. baclofen 10 mg tablet Take 1 tablet by mouth in the evening and 2 tablet at bedtime topiramate (TOPAMAX) 50 mg tablet TAKE 1 & 1/2 (ONE & ONE-HALF) TABLETS BY MOUTH ONCE DAILY AT BEDTIME amantadine HCl (SYMMETREL) 100 mg capsule Take 1 capsule by mouth twice daily DULoxetine (CYMBALTA) 60 mg capsule Take 1 capsule by mouth once daily Cholecalciferol, Vitamin D3, 125 mcg (5,000 unit) cap Take 1 capsule by mouth once daily. albuterol HFA (PROVENTIL HFA, VENTOLIN HFA) 90 mcg/actuation inhaler Inhale 2 Puffs as instructed every 4 hours as needed for wheezing/shortness of breath. ocrelizumab (OCREVUS INTRAVENOUS) Inject intravenously once every 6 months. amphetamine-dextroamphetamine XR (ADDERALL XR) 30 mg capsule Take 1 capsule by mouth once daily for 30 days. amphetamine-dextroamphetamine XR (ADDERALL XR) 30 mg capsule Take 1 capsule by mouth once daily for 30 days. Do not start before January 07, 2024. amphetamine-dextroamphetamine XR (ADDERALL XR) 30 mg capsule Take 1 capsule by mouth once daily for 30 days. Do not start before February 06, 2024. amphetamine-dextroamphetamine XR (ADDERALL XR) 30 mg capsule Take 1 capsule by mouth once daily for 30 days. dextroamphetamine-amphetamine (ADDERALL) 10 mg tablet Take 1 tablet by mouth once daily for 30 days. No current facility-administered medications for this visit. No herbs, supplements O/E Looks okay BP 117/80 (BP Site: Left Arm, BP Position: Sitting, BP Cuff Size: Regular Adult) Pulse 94 Temp 36.9 C (98.4 F) (Temporal) Ht 160 cm (5' 3) Wt 104 kg (229 lb 4.5 oz) LMP 05/22/2024 (Exact Date) SpO2 100% BMI 40.61 kg/m Body mass index is 40.61 kg/m . skin: w+d HEENT: nc/at Chest: clear to A+P CVS: rrr Abd: soft, nt, nd. no masses, no palp hsm Ext: no c/c/e No stigmata of chronic liver disease Assessment/plan: 33-year-old woman with history of elevated alkaline phosphatase of ~3 months duration; previous isoenzyme fractionation demonstrates consistent with liver origin. No prior personal or family history of liver disease. Ultrasound with no evidence of obstruction Long discussion regarding possible differential diagnosis, approach Suggested: 1. Alkaline phosphatase - Labs, including AMA, IgG, IgM - FibroScan today - Based on results, consider MRCP, although no prior history of UC Follow-up on the phone RTC ~4-6 months Bjorn Lofton MD documented in this encounter [facility] 06-20-2024 Telephone encounter Note See pt message. Pt has additional message in to Chiara Pedersen CNP for side effects of possible abx, which can be reviewed by you. Pt completed labs that were to be done on 05/17/24, completed 06/16/24. Please advise if pt needs a f/u appt. Callie George MA [facility] 06-20-2024 Miscellaneous Notes See pt message. Pt has additional message in to Chiara Pedersen CNP for side effects of possible abx, which can be reviewed by you. Pt completed labs that were to be done on 05/17/24, completed 06/16/24. Please advise if pt needs a f/u appt. Callie George MA documented in this encounter [facility] 06-20-2024 Telephone encounter Note Please see pt message and advise. Pt was seen in [facility] on 06/16/24. Callie George MA [facility] 06-16-2024 History of Present illness Narrative CC: Patient presents with: Chest Congestion: Cough, SOB, chest tightness, productive cough, x 10 days and increasing HPI: Isac Peres is a 33 year old female who presents to the office with complaint of chest congestion, head congestion, and cough, nonproductive for 10 days. Symptoms are worsening Associated symptoms includes dyspnea. Denies nausea, vomiting , and diarrhea. Treatments tried include nothing so far. with no relief of symptoms. Sick contacts: unknown. History of asthma, frequent episodes of bronchitis, chronic bronchitis, bronchiectasis or COPD: No Smoker: No Seasonal/environmental allergies: No The ROS is otherwise negative. The patient's pmh, medications, allergies, and past visits are reviewed. PHYSICAL EXAM: BP 116/82 Pulse 92 Temp 36.7 C (98 F) Resp 18 Wt 102 kg (224 lb 13.9 oz) LMP 05/22/2024 (Exact Date) SpO2 98% BMI 39.83 kg/m General appearance: alert, cooperative, pleasant, in no acute distress Head: Normocephalic Eyes: EOM's intact, conjunctiva pink and moist, no icterus, sclera white, non-injected Ears: Right ear: External ear/canal- Normal, TM - clear with good landmarks. Left ear: External ear/canal- Normal, TM - clear with good landmarks Oropharynx:moist without lesions, No erythema, exudates or tonsillar hypertrophy. Heart: Negative. RRR without obvious murmur, gallop, or rubs. No ectopy. Lungs: clear to auscultation, without rales or wheeze, good air exchange PAST MEDICAL HISTORY No date: Adjustment disorder with depressed mood No date: Dysmenorrhea 06/12/2011: Encounter for insertion or removal of intrauterine contraceptive device No date: Multiple sclerosis (HCC) No date: Unspecified asthma(493.90) Comment: SPORTS INDUCED, NO PROBLEMS SINCE AGE 16 PAST SURGICAL HISTORY 11/11/2009: DELIVERY ONLY 03/31/11: DELIVERY ONLY Comment: , low transverse 02/18/2018: ESOPHAGOGASTRODUODENOSCOPY TRANSORAL DIAGNOSTIC Comment: EGD 06/10/2016: HYSTEROSCOPY Comment: in office to remove IUD 06/2011, 06/10/2016: INSERTION OF IUD 01/25/10: LAPS SURG CHOLECYSTECTOMY W/CHOLANGIOGRAPHY Comment: Normal IOC No date: PAST SURGICAL HISTORY OF Comment: DIAGNOSTIC LAPAROSCOPY No date: UNSPECIFIED ORAL SURGERY PROCEDURE, BY REPORT Comment: wisdom teeth removed ALLERGIES Patient has no known allergies. MEDICATIONS nitrofurantoin monohydrate and macrocrystal (MACROBID) 100 mg capsule Take 1 capsule by mouth two times a day with meals for 7 days. gabapentin (NEURONTIN) 300 mg capsule TAKE 2 CAPSULES BY MOUTH THREE TIMES DAILY. MAY TAKE ADDITIONAL 300 MG NEEDED FOR PAIN. amphetamine-dextroamphetamine XR (ADDERALL XR) 30 mg capsule Take 1 capsule by mouth once daily for 30 days. amphetamine-dextroamphetamine XR (ADDERALL XR) 30 mg capsule Take 1 capsule by mouth once daily for 30 days. Patient should start on June 16, 2024. [START ON 07/16/2024] amphetamine-dextroamphetamine XR (ADDERALL XR) 30 mg capsule Take 1 capsule by mouth once daily for 30 days. Patient should start on July 16, 2024. SUMAtriptan (IMITREX) 100 mg tablet Take 1 tablet (100 mg) by mouth as needed for migraine headache (see administration instructions). START AT ONSET OF HEADACHE. MAY REPEAT DOSE AFTER 2 HOURS. baclofen 10 mg tablet Take 1 tablet by mouth in the evening and 2 tablet at bedtime topiramate (TOPAMAX) 50 mg tablet TAKE 1 & 1/2 (ONE & ONE-HALF) TABLETS BY MOUTH ONCE DAILY AT BEDTIME amantadine HCl (SYMMETREL) 100 mg capsule Take 1 capsule by mouth twice daily DULoxetine (CYMBALTA) 60 mg capsule Take 1 capsule by mouth once daily Cholecalciferol, Vitamin D3, 125 mcg (5,000 unit) cap Take 1 capsule by mouth once daily. albuterol HFA (PROVENTIL HFA, VENTOLIN HFA) 90 mcg/actuation inhaler Inhale 2 Puffs as instructed every 4 hours as needed for wheezing/shortness of breath. ocrelizumab (OCREVUS INTRAVENOUS) Inject intravenously once every 6 months. doxycycline (VIBRA-TABS) 100 mg tablet Take 1 tablet by mouth two times a day for 7 days. amphetamine-dextroamphetamine XR (ADDERALL XR) 30 mg capsule Take 1 capsule by mouth once daily for 30 days. Do not start before January 07, 2024. amphetamine-dextroamphetamine XR (ADDERALL XR) 30 mg capsule Take 1 capsule by mouth once daily for 30 days. Do not start before February 06, 2024. amphetamine-dextroamphetamine XR (ADDERALL XR) 30 mg capsule Take 1 capsule by mouth once daily for 30 days. dextroamphetamine-amphetamine (ADDERALL) 10 mg tablet Take 1 tablet by mouth once daily for 30 days. FAMILY HISTORY Problem Relation Age of Onset other (endometrial cancer) Mother Lipids Father Arthritis Maternal Grandmother Asthma Maternal Grandmother Cancer Maternal Grandmother SKIN CANCER Heart Maternal Grandmother Rheumatologic disease Maternal Grandmother Fibromyalgia Cancer Maternal Grandfather Multiple Sclerosis Paternal cousin Social History Tobacco Use Smoking status: Never Smokeless tobacco: Never Vaping Use Vaping status: Never Used Substance Use Topics Alcohol use: No Comment: 1/mo Drug use: No ASSESSMENT/PLAN: 1. Rhinosinusitis - ICD9: 473.9, ICD10: J32.9 - DOXYCYCLINE HYCLATE 100 MG TABLET Prescription instructions reviewed with patient as applicable. Potential red flag symptoms discussed with the patient. Reviewed appropriate action plan to take if red flag symptoms occur. Patient agreeable to treatment plan. Jordan Bajwa APRN.BRANDON documented in this encounter [facility] 06-14-2024 Telephone encounter Note Phoned patient and given provider's message below with verbalized understanding. Patient agreeable. [facility] 06-14-2024 Miscellaneous Notes Phoned patient and given provider's message below with verbalized understanding. Patient agreeable. Patient should get labs completed to reassess liver enzymes and kidney function. She should have a follow up in 2-4 weeks so that we can ensure that blood is gone from urine. Some of the findings in her urine could also be secondary to dehydration possibly. If her dizziness and fatigue is worsening, she would need to go to the ER. Not sure if she would need a CT scan or IV fluids. Lneny Mena CNP Patient calls upset because she had came into express care and had urine testing done which was negative for UTI. Patient was told that if symptoms persist then she needed to come in and see PCP regarding this in 2-4 weeks. Patient wanting to know the answers to this question: I ve had two different blood tests lately come back showing abnormalities with my kidneys and liver, and from what I understand from the urine test it showed issues with both as well. I wanted to make sure that someone was willing to check all these results and make sure that there isn t something else going on here that needs looked at. Considering the nerve pain and sensations I deal with daily from MS, when I go into the dr complaining of week long pain and feeling miserable I m typically meaning it. So I just really want to cover my bases here. I also was only able to give less than an ounce of urine yesterday due to stupidly using the restroom right before I left my house so if that has anything to do with it let me know. Advised patient that she needs to come into office to discuss her symptoms. Offered to schedule appointment on Thursday with Lenny since he is the provider patient was trying to message. Patient asking if she really needs to come in. Patient does not want to come into appointment for provider to tell her that nothing is wrong and that it is in her head. Advised patient that there are labs that she needs to get done this week that were ordered by Lenny a month ago, patient voiced understanding. Patient state that she can barely move around her house due to dizziness. Please review and advise, Francesca Guidry RN documented in this encounter [facility] 06-13-2024 Telephone encounter Note Patient should get labs completed to reassess liver enzymes and kidney function. She should have a follow up in 2-4 weeks so that we can ensure that blood is gone from urine. Some of the findings in her urine could also be secondary to dehydration possibly. If her dizziness and fatigue is worsening, she would need to go to the ER. Not sure if she would need a CT scan or IV fluids. Lenny Mena CNP [facility] 06-13-2024 Telephone encounter Note Patient calls upset because she had came into express care and had urine testing done which was negative for UTI. Patient was told that if symptoms persist then she needed to come in and see PCP regarding this in 2-4 weeks. Patient wanting to know the answers to this question: I ve had two different blood tests lately come back showing abnormalities with my kidneys and liver, and from what I understand from the urine test it showed issues with both as well. I wanted to make sure that someone was willing to check all these results and make sure that there isn t something else going on here that needs looked at. Considering the nerve pain and sensations I deal with daily from MS, when I go into the dr complaining of week long pain and feeling miserable I m typically meaning it. So I just really want to cover my bases here. I also was only able to give less than an ounce of urine yesterday due to stupidly using the restroom right before I left my house so if that has anything to do with it let me know. Advised patient that she needs to come into office to discuss her symptoms. Offered to schedule appointment on Thursday with Lenny since he is the provider patient was trying to message. Patient asking if she really needs to come in. Patient does not want to come into appointment for provider to tell her that nothing is wrong and that it is in her head. Advised patient that there are labs that she needs to get done this week that were ordered by Lenny a month ago, patient voiced understanding. Patient state that she can barely move around her house due to dizziness. Please review and advise, Francesca Guidry, RN [facility] 06-13-2024 Telephone encounter Note Pt advised she needs an appointment to discuss and further evaluate. Rowan Moore MA [facility] 06-13-2024 Miscellaneous Notes Pt advised she needs an appointment to discuss and further evaluate. Rowan Moore MA documented in this encounter [facility] 06-13-2024 Telephone encounter Note Spoke with patient. Given message from provider's office. Patient verbalizes understanding. There is an previous lab order for UA Lilo Schulz RN [facility] 06-13-2024 Telephone encounter Note Left message for patient to return call. Rupinder Cabrera MA [facility] 06-13-2024 Telephone encounter Note Please notify that the urine culture showed no infection. May continue taking the antibiotic if symptoms are improving. If symptoms persist/worsen f/u with primary care. Hematuria noted on ua, patient should have urine retested with pcp in 2-4 weeks to see if persisting. [facility] Work Phone: 06-12-2024 Instructions Jessica Luciano - 06/12/2024 12:02 PM EDT ASSESSMENT/PLAN: 1. Urinary frequency - ICD9: 788.41, ICD10: R35.0 (primary diagnosis) acute - UA positive for leticia esterase - Send urine for culture - Begin treatment with Macrobid 100 mg BID for 7 days - Patient education for prevention given - UA DIP, URINE (POC) - URINE CULTURE 2. Sore throat - ICD9: 462, ICD10: J02.9 - Rapid Strep negative in the office today - STREP A MOLECULAR (POC) 3. Acute cystitis with hematuria - ICD9: 595.0, ICD10: N30.01 - NITROFURANTOIN MONOHYDRATE & MACROCRYSTAL 100 MG ORAL CAP 4. Viral URI with cough - ICD9: 465.9, ICD10: J06.9 - Discussed viral etiology and rationale for treatment. - Symptomatic treatment with prn analgesia - Supportive care with fluids and rest Patient advised to increase clear fluid intake and monitor for any worsening URI symptoms. Prescribed an antibiotic for UTI with instructions on use. Patient informed that she will be notified once urine culture has been resulted. Answered all of patient's questions and patient agreeable with plan. RESPIRATORY INFECTION GENERAL INFORMATION: An upper respiratory tract infection, or cold, is a viral infection of the airway passages. It can be caused by any one of almost 200 different viruses. Common symptoms include a runny or stuffy nose, sneezing, watery eyes, sore throat, cough, and slight fever. Colds are contagious, especially during the first 3 or 4 days and cannot be cured by antibiotics. They are spread by coughs, sneezes, and direct contact, especially [id number]. A respiratory tract infection usually clears up in a few days, but some people may be sick for a week or two. INSTRUCTIONS: 1. Be careful not to blow your nose too hard because this may cause a nosebleed. 2. Use a cool-mist humidifier (vaporizer) to increase air moisture. This will make it easier for you to breathe. Do not use hot steam. 3. Rest as much as possible and get plenty of sleep. 4. Wash your hands often, especially after you blow your nose. Cover your mouth and nose with a tissue when you sneeze or cough. 5. Drink plenty of clear fluids (8 glasses a day) such as water, fruit juice, tea, clear soups, and carbonated beverages. CONTACT YOUR DOCTOR IF : 1. Your fever lasts more than 3 days. 2. You have a sore throat that gets worse or you see white or yellow spots in your throat. 3. Your cough gets worse or lasts more than 10 days. 4. You develop a rash anywhere on your skin. 5. You have an earache or a headache. 6. You have thick greenish or yellowish discharge from your nose. RETURN IMMEDIATELY IF: 1. You cough up thick yellow, green, veras, or bloody sputum. 2. You have difficulty breathing, pain in your chest, or your skin or nails look veras or blue. 3. You have shaking chills or a temperature over 102 F (39 C). Jessica Luciano, Student [employer]LO[employer] WORK[employer] documented in this encounter [facility] 06-12-2024 History of Present illness Narrative Subjective Isac Peres is a 33 year old female who presents with cough, fever, sore throat, and nausea x 5 days. She also reports urinary frequency and flank pain x 7 days. Fever Associated symptoms include diarrhea, sore throat and cough. Pertinent negatives include no vomiting. Patient states she has urinary frequency and urgency that started about one week ago. She reports bilateral flank tenderness.She denies burning and pain with urination. She reports that she has had fever, highest at home was 101.2. Patient reports cough, sore throat, body aches and chills with nausea and loose stools that started yesterday. She reports a decrease in appetite for solid food, but is drinking well. Patient has been taking OTC Sudafed for symptoms with no relief. 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 Review of Systems Constitutional: Positive for chills, fever and malaise/fatigue. HENT: Positive for sore throat. Eyes: Negative. Respiratory: Positive for cough. Cardiovascular: Negative. Gastrointestinal: Positive for diarrhea and nausea. Negative for abdominal pain and vomiting. Genitourinary: Positive for flank pain, frequency and urgency. Skin: Negative. Neurological: Negative. Psychiatric/Behavioral: Negative. PAST MEDICAL HISTORY No date: Adjustment disorder with depressed mood No date: Dysmenorrhea 06/12/2011: Encounter for insertion or removal of intrauterine contraceptive device No date: Multiple sclerosis (HCC) No date: Unspecified asthma(493.90) Comment: SPORTS INDUCED, NO PROBLEMS SINCE AGE 16 PAST SURGICAL HISTORY 11/11/2009: DELIVERY ONLY 03/31/11: DELIVERY ONLY Comment: , low transverse 02/18/2018: ESOPHAGOGASTRODUODENOSCOPY TRANSORAL DIAGNOSTIC Comment: EGD 06/10/2016: HYSTEROSCOPY Comment: in office to remove IUD 06/2011, 06/10/2016: INSERTION OF IUD 01/25/10: LAPS SURG CHOLECYSTECTOMY W/CHOLANGIOGRAPHY Comment: Normal IOC No date: PAST SURGICAL HISTORY OF Comment: DIAGNOSTIC LAPAROSCOPY No date: UNSPECIFIED ORAL SURGERY PROCEDURE, BY REPORT Comment: wisdom teeth removed ALLERGIES Patient has no known allergies. MEDICATIONS gabapentin (NEURONTIN) 300 mg capsule TAKE 2 CAPSULES BY MOUTH THREE TIMES DAILY. MAY TAKE ADDITIONAL 300 MG NEEDED FOR PAIN. amphetamine-dextroamphetamine XR (ADDERALL XR) 30 mg capsule Take 1 capsule by mouth once daily for 30 days. [START ON 06/16/2024] amphetamine-dextroamphetamine XR (ADDERALL XR) 30 mg capsule Take 1 capsule by mouth once daily for 30 days. Patient should start on June 16, 2024. [START ON 07/16/2024] amphetamine-dextroamphetamine XR (ADDERALL XR) 30 mg capsule Take 1 capsule by mouth once daily for 30 days. Patient should start on July 16, 2024. SUMAtriptan (IMITREX) 100 mg tablet Take 1 tablet (100 mg) by mouth as needed for migraine headache (see administration instructions). START AT ONSET OF HEADACHE. MAY REPEAT DOSE AFTER 2 HOURS. baclofen 10 mg tablet Take 1 tablet by mouth in the evening and 2 tablet at bedtime topiramate (TOPAMAX) 50 mg tablet TAKE 1 & 1/2 (ONE & ONE-HALF) TABLETS BY MOUTH ONCE DAILY AT BEDTIME amantadine HCl (SYMMETREL) 100 mg capsule Take 1 capsule by mouth twice daily DULoxetine (CYMBALTA) 60 mg capsule Take 1 capsule by mouth once daily Cholecalciferol, Vitamin D3, 125 mcg (5,000 unit) cap Take 1 capsule by mouth once daily. albuterol HFA (PROVENTIL HFA, VENTOLIN HFA) 90 mcg/actuation inhaler Inhale 2 Puffs as instructed every 4 hours as needed for wheezing/shortness of breath. ocrelizumab (OCREVUS INTRAVENOUS) Inject intravenously once every 6 months. nitrofurantoin monohydrate and macrocrystal (MACROBID) 100 mg capsule Take 1 capsule by mouth two times a day with meals for 7 days. amphetamine-dextroamphetamine XR (ADDERALL XR) 30 mg capsule Take 1 capsule by mouth once daily for 30 days. Do not start before January 07, 2024. amphetamine-dextroamphetamine XR (ADDERALL XR) 30 mg capsule Take 1 capsule by mouth once daily for 30 days. Do not start before February 06, 2024. amphetamine-dextroamphetamine XR (ADDERALL XR) 30 mg capsule Take 1 capsule by mouth once daily for 30 days. dextroamphetamine-amphetamine (ADDERALL) 10 mg tablet Take 1 tablet by mouth once daily for 30 days. FAMILY HISTORY Problem Relation Age of Onset other (endometrial cancer) Mother Lipids Father Arthritis Maternal Grandmother Asthma Maternal Grandmother Cancer Maternal Grandmother SKIN CANCER Heart Maternal Grandmother Rheumatologic disease Maternal Grandmother Fibromyalgia Cancer Maternal Grandfather Multiple Sclerosis Paternal cousin Social History Tobacco Use Smoking status: Never Smokeless tobacco: Never Vaping Use Vaping status: Never Used Substance Use Topics Alcohol use: No Comment: 1/mo Drug use: No BP 117/84 Pulse 80 Temp 36.7 C (98 F) Resp 20 Wt 102 kg (224 lb 13.9 oz) LMP 05/22/2024 (Exact Date) SpO2 100% BMI 39.83 kg/m Objective Physical Exam Vitals and nursing note reviewed. Constitutional: Appearance: Normal appearance. HENT: Head: Normocephalic. Nose: Nose normal. Mouth/Throat: Mouth: Mucous membranes are moist. Pharynx: Oropharynx is clear. Eyes: Conjunctiva/sclera: Conjunctivae normal. Cardiovascular: Rate and Rhythm: Normal rate and regular rhythm. Pulses: Normal pulses. Heart sounds: Normal heart sounds. Pulmonary: Effort: Pulmonary effort is normal. Breath sounds: Normal breath sounds. Abdominal: General: There is no distension. Palpations: Abdomen is soft. Tenderness: There is no abdominal tenderness. There is no right CVA tenderness or left CVA tenderness. Musculoskeletal: General: Normal range of motion. Cervical back: Neck supple. No tenderness. Lymphadenopathy: Cervical: No cervical adenopathy. Skin: General: Skin is warm and dry. Neurological: General: No focal deficit present. Mental Status: She is alert and oriented to person, place, and time. Psychiatric: Mood and Affect: Mood normal. Behavior: Behavior normal. ASSESSMENT/PLAN: 1. Urinary frequency - ICD9: 788.41, ICD10: R35.0 (primary diagnosis) acute - UA positive for leticia esterase - Send urine for culture - Begin treatment with Macrobid 100 mg BID for 7 days - Patient education for prevention given - UA DIP, URINE (POC) - URINE CULTURE 2. Sore throat - ICD9: 462, ICD10: J02.9 - Rapid Strep negative in the office today - STREP A MOLECULAR (POC) 3. Acute cystitis with hematuria - ICD9: 595.0, ICD10: N30.01 - NITROFURANTOIN MONOHYDRATE & MACROCRYSTAL 100 MG ORAL CAP 4. Viral URI with cough - ICD9: 465.9, ICD10: J06.9 - Discussed viral etiology and rationale for treatment. - Symptomatic treatment with prn analgesia - Supportive care with fluids and rest - Offered COVID/flu/RSV testing-patient declined. Patient advised to increase clear fluid intake and monitor for any worsening URI symptoms. Prescribed an antibiotic for UTI with instructions on use. Patient informed that she will be notified once urine culture has been resulted. Answered all of patient's questions and patient agreeable with plan. Jessica Luciano, Student [employer]LO[employer] WORK[employer] TEACHING PROVIDER (Physician/PA/MEDICAL HISTORIAN) NOTE OF PERSONAL INVOLVEMENT IN CARE: I have personally seen and examined the patient and performed the medical decision-making components. I have reviewed the Advanced Practice Registered Nurse (MEDICAL HISTORIAN) Student's documentation and verified the findings in the note as written. Any additions or changes are noted in bold/italics. Signature: Gris Miller Date: 06/12/2024 Time: 12:15 PM documented in this encounter [facility] 06-01-2024 Telephone encounter Note The following approved medication requests have been transmitted electronically. Requested Prescriptions Signed Prescriptions Disp Refills gabapentin (NEURONTIN) 300 mg capsule 210 capsule 5 Sig: TAKE 2 CAPSULES BY MOUTH THREE TIMES DAILY. MAY TAKE ADDITIONAL 300 MG NEEDED FOR PAIN. Authorizing Provider: LIZET BROWN PA-C [facility] 06-01-2024 Miscellaneous Notes The following approved medication requests have been transmitted electronically. Requested Prescriptions Signed Prescriptions Disp Refills gabapentin (NEURONTIN) 300 mg capsule 210 capsule 5 Sig: TAKE 2 CAPSULES BY MOUTH THREE TIMES DAILY. MAY TAKE ADDITIONAL 300 MG NEEDED FOR PAIN. Authorizing Provider: LIZET BROWN PA-C Source : electronic from pharmacy requesting refill. Delivery : e-script Requested Prescriptions Pending Prescriptions Disp Refills gabapentin (NEURONTIN) 300 mg capsule [Pharmacy Med Name: Gabapentin 300 MG Oral Capsule] 210 capsule 5 Sig: TAKE 2 CAPSULES BY MOUTH THREE TIMES DAILY. MAY TAKE ADDITIONAL 300 MG NEEDED FOR PAIN. DX : Patient last seen: 03/31/2024 Next Appointment : 06/07/2024 Amanda Das documented in this encounter [facility] 05-31-2024 Telephone encounter Note Source : electronic from pharmacy requesting refill. Delivery : e-script Requested Prescriptions Pending Prescriptions Disp Refills gabapentin (NEURONTIN) 300 mg capsule [Pharmacy Med Name: Gabapentin 300 MG Oral Capsule] 210 capsule 5 Sig: TAKE 2 CAPSULES BY MOUTH THREE TIMES DAILY. MAY TAKE ADDITIONAL 300 MG NEEDED FOR PAIN. DX : Patient last seen: 03/31/2024 Next Appointment : 06/07/2024 Amanda Das [facility] Work Phone: 05-23-2024 History of Present illness Narrative Radiology Service Progress Note PATIENT NAME: Isac Peres DATE OF SERVICE: May 23, 2024 TIME: 4:20 PM PATIENT IDENTITY VERIFICATION COMPLETED USING TWO (2) IDENTIFIERS: Name and Date of confirmed by patient verbally. FALL SCREENING: Has the patient had 2 falls in the last year or 1 fall with injury or currently using an Ambulatory Assistive Device (Walker, Cane, Wheelchair, Crutches, etc.)? No PATIENT GENDER DATA: Female. status: : No status: NO. PATIENT RELEVANT IMPLANT DATA REVIEWED: Not Applicable PATIENT PRESENTS WITH AN IMPLANTABLE OR ATTACHED MEAT CUTTER: No RADIOLOGY DEPARTMENT: Ultrasound PERIPHERAL IV DATA: Not applicable SIGNED BY: Geno Barber RDMS May 23, 2024 4:20 PM documented in this encounter [facility] 05-19-2024 Instructions Francesca Sen PA-C - 05/19/2024 3:19 PM EDT Isac, I would like to thank you for spending time with me today and taking time to invest in your health. Below I have outlined some recommendations, I highly encourage you to work on. My recommendations only go so far, you have to do the work. Please reach our for support and questions via [employer]. Referral for acupuncture - call [phone] [place] - Dr. Luis Felipe Arroyo's protocol, read her book or follow on social media for tips. General healthy recommendations: just a general idea Aim for 4-5 servings (1 cup) vegetables. The more colorful the better. Aim for 2-3 servings (1 cup) of whole fruit Try to get 100 + grams of protein/day. Fiber - aim for > 25 grams/day for women and >38 grams/day men. Work your way up to this if you are not already at this amount. Going up to fast can result in excess bloating. Add healthy fats - avocado, salmon, nuts (pistachio, almond, walnut), seed (stacia, sunflower), EVOO, avocado oil (avoid fried foods, vegetable oil, canola oil) Limit added sugar to <25 grams a day for women and <38 grams a day for men Aim to drink half of your body weigh in water daily Aim for 30 minutes of vigorous activity 5 days a week or 7000 steps/day. Preferably some weight training as well for strong muscle and bones. Protein per serving Morley (3 oz) = 17.4 grams Beef (3 oz) = 22 grams Chicken (3 oz) = 19.6 grams Soy beans (1 cup)= 28.5 grams Lentil (1 cup) = 17.9 grams Adrian beans/chickpeas = 19 grams per 1 cup Recipes: all anti-inflammatory [email or web address] wellness videos Go to [email or web address] - Insight Timer Yoga - Come As You Are (gentle chair yoga) Antolin Chi Relaxation for chronic pain - guided meditations Relieve, Relax, Recharge - different meditations available Free wellness classes online (meditation, yoga, fitness) See the schedule and sign up for classes at: [email or web address] To set up a private one-hour yoga session with Mindi Tenorio please call [phone] option 4 or email [email or web address]. Dr. Elia Irene's 4-7-8 Breath Sit with your back straight, feet on the floor, eyes open or closed. Place the tip of your tongue against the ridge of tissue just behind your upper front teeth - keep it there through the entire exercise. You will be exhaling through your mouth around your tongue. The timing can speed up or slow down during the exercise as needed. - Inhale through your nose for a count of 4 - Hold your breath for a count of 7 - Exhale completely through your mouth while making a whoosh sound for a count of 8 - This is 1 cycle. Practice 5 cycles first thing in the morning and before going to sleep. It only takes a couple of minutes. You might feel a little lightheaded at first. With regular practice you will notice you can breathe more slowly and deeply. The 4-7-8 breath is a natural tranquilizer for the nervous system and can help you feel more calm and relaxed. This exercise is subtle at first and will gain in power with repetition and practice. For constipation: - Consider using the Squatty Potty (available online). This is a stool that positions your body into a squat for easier bowel movements. - Drink unsweetened peppermint tea (hot or cold) throughout the day. - Black coffee has a laxative effect. - Aim for 30-40 grams of fiber per day. See list of fiber-rich foods below. Try the recipes for stacia pudding and flaxseed porridge below. - Eat 1-2 dried prunes each day. - Keep moving! Walking and other forms of physical activity will help you to have regular bowel movements. - Dairy products can cause constipation in some people. Consider eliminating all dairy products for 4 weeks to see if it helps. Examples of dairy: butter, milk, cream, ice cream, cheese, sour cream, yogurt, cottage cheese. High-fiber foods: - Whole grain cereal such as bran cereals, Eva's Shredded Wheat, Keon's Red Mill Muesli, Post Grape Nuts (original), Kashi 7 Whole Grain Nuggets. Try the recipes for stacia pudding and flaxseed porridge below. - Vegetables: (fresh or frozen) Eat at least 5 servings per day. 1 serving is 1-2 cups leafy greens, 1/2 cup cut-up vegetable. - Fruits: (fresh or frozen) Eat 3 servings per day. 1 serving is 1 medium piece of fruit, 1/2 cup cut-up fruit. - Legumes: beans (black, adrian, white, navy, cannellini, garbanzo, kidney, and other beans), lentils, and peas. - Hummus - Nuts and seeds - 100% whole grain foods: whole grain bread such as Rohith bread, whole grain tortillas and wraps, pasta made from whole grains or beans, quinoa, brown rice, black rice, amaranth, and millet. - Hot cereal made from oats, quinoa, or buckwheat groats. Choose steel cut or old-fashioned rolled oats instead of instant oatmeal. - Sweet potatoes with the skin - Avocados - Jicama: peel and cut into sticks. Add to a salad or dip into hummus or guacamole. Supplements: Start taking the following supplements one at a time and wait at least 3 days before starting another supplement. If you develop any new symptoms such as difficulty breathing, swelling, rash, vomiting, or diarrhea, stop the supplement and seek immediate medical attention. For bowels and pain: - Take magnesium 150-300 mg daily. Magnesium citrate has a laxative effect. Look for buffered or chelated magnesium for best absorption such as Designs for [employer] Magnesium Buffered Chelate. \ Pure Encapsulations, Oskar, Life Extensions, Garden of Life are all great brands For bowels: - Take a good quality probiotic daily for gut health. Recommended brands: Ziftit of Life Once Daily Probiotic 50 billion, Nutrition Now PB8, Ortho Molecular, Intellitix, Expert TA Ultimate Jesu. For pain/inflammation: Take turmeric or curcumin 500 mg twice daily to reduce pain and inflammation. You may take a max of 1000 mg twice a day. The supplement must contain bioperine or black pepper for absorption. Good brands: ResourceKraft Encapsulations, Luxul Technology (Meriva 500-SF), Opposing Views Extra Strength Tumeric with Janett, Nested Naturals. Magnesium - aim for at least 500 mg/day. May divide or take at night. - constipation --> citrate - no constipation -- > mag glycinate or malate or mixed amino acid chelate - GOYAL or anxiety --> mag threonate or taurate (helpful for arrythmia) - GI absorption --> epsom salt bath Symptoms of low magnesium: - muscle cramps, twitches, tightness or pain - trouble with sleep - Irritability - sensitivity to loud noises - Anxiety - ADD - Palpitations - Angina - Constipation - Headaches/migraines - Fibromyalgia, - Chonic fatigue - Asthma - kidney stones - osteoporosis - menstrual cramps, - irritable bowel syndrome documented in this encounter [facility] 05-19-2024 History of Present illness Narrative Images from the original note were not included. Wellness Consultation Ms.Molly Mary Peres is a 33 year old female is here for a wellness and preventive medicine initial consultation. Consultation requested by Lizet Brown PA-C for an opinion regarding symptoms from MS. My final recommendations will be communicated back to the requesting physician by way of shared Medical record. Chief complaint: MS symptoms HPI: 33 year old female with a history of ADD and MS presents with pain and numbness or tingling , typically hands and feet. Numbness usually progesses from feet up to knees, but usually does not go up her body more. She also has some in her right arm. She was diagnosed 2 years ago with headaches, cognitive recall and on a scan found white matter lesions. Headaches mostly premenstrual Timeline of triggering events: - vaginal, bottle Childhood - healthy MS/HS - fine, graduated College courses - didn't graduate 19 yo - childbirth, 19 - cholecystectomy 20 yo and 21 started with sx tingling sensations 26 Headaches started more migraine related Last time your felt well? Antecedents: bottle fed, early marriage, childbirth, constipation (middle school), cholecystecomy Triggers: childbirth, Mediators: SAD, constipation, lack of regular exercise, pain, stress Psychosocial: Nutrition: +ve gluten, +dairy B: skip, sometimes coffee, chocolate milk, granola bar L: school lunch D: chicken (tacos, BBQ), vegetables, pasta, macaroni Snacks: minimal HF: avocado at times F: <1/day V: <2 Water: 60-90 oz/day Alcohol: not really Caffeine: tea + sugar BM: not daily, ~ 3 days Food intolerances: tomato based, tree nuts (allergy), thick dairy, heavy garlic Toxins: mold - no, mercury - no, Menses: PMS, monthly, pain, increased sx Sleep: varies, sometimes sleeps well and other times not - Hours 9:30/10:30 pm - 6:30 am - Awakening - Quality - fair Movement/exercise - walking Stress - mild - moderate; worse in the school year Coping Mechanisms Background Relationships and Social Network - , 2 kids (13, 14) 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 SUMAtriptan (IMITREX) 100 mg tablet Take 1 tablet (100 mg) by mouth as needed for migraine headache (see administration instructions). START AT ONSET OF HEADACHE. MAY REPEAT DOSE AFTER 2 HOURS. baclofen 10 mg tablet Take 1 tablet by mouth in the evening and 2 tablet at bedtime topiramate (TOPAMAX) 50 mg tablet TAKE 1 & 1/2 (ONE & ONE-HALF) TABLETS BY MOUTH ONCE DAILY AT BEDTIME amantadine HCl (SYMMETREL) 100 mg capsule Take 1 capsule by mouth twice daily DULoxetine (CYMBALTA) 60 mg capsule Take 1 capsule by mouth once daily Cholecalciferol, Vitamin D3, 125 mcg (5,000 unit) cap Take 1 capsule by mouth once daily. albuterol HFA (PROVENTIL HFA, VENTOLIN HFA) 90 mcg/actuation inhaler Inhale 2 Puffs as instructed every 4 hours as needed for wheezing/shortness of breath. gabapentin (NEURONTIN) 300 mg capsule Take 2 capsules by mouth three times a day for 180 days. May take additional 300 mg as needed PRN pain ocrelizumab (OCREVUS INTRAVENOUS) Inject intravenously once every 6 months. No current facility-administered medications on file prior to visit. Patient-Entered Questionnaires 2022 12/28/2022 04/19/2024 [facility] Physical Function PROMIS Physical Function T-Score 46 (within normal limits) 44 (mild dysfunction) 41 (mild dysfunction) 2022 12/28/2022 [facility] Pain Interference PROMIS Pain Interference T-Score (range: 10 - 90) 68 (moderate) 60 (mild) 2022 12/28/2022 [facility] Fatigue PROMIS Fatigue T-Score 68 (moderate) 74 (severe) 05/23/2022 [facility] Sleep Disturbance PROMIS Sleep Disturbance T-Score 53 (within normal limits) 03/28/2024 09/29/2023 07/03/2023 [facility] NEUROQOL COGNITIVE T-SCORE PROMIS Neuroqol Cognitive T-Score 32 (moderate dysfunction) 27 (severe dysfunction) 29 (severe dysfunction) REVIEW OF SYSTEMS: +constipation, +paresthesia, +reports brittle nails Physical Exam Ht 160 cm (5' 3) Wt 107.2 kg (236 lb 5.3 oz) LMP 04/22/2024 (Exact Date) BMI 41.86 kg/m GENERAL: Well groomed, well appearing, no acute distress, obese HEENT: sclera anicteric, pink tongue NEURO: Non-antalgic gait, alert and oriented x 3, UE strength 5/5 EXT: Normal extremities SKIN/HAIR/NAILS: appears generally healthy PREVIOUS STUDIES: Latest Ref Rng 05/10/2024 WBC 3.70 - 11.00 k/uL 7.72 RBC 3.90 - 5.20 m/uL 4.53 Hemoglobin 11.5 - 15.5 g/dL 13.8 Hematocrit 36.0 - 46.0 % 42.5 MCV 80.0 - 100.0 fL 93.8 MCH 26.0 - 34.0 pg 30.5 MCHC 30.5 - 36.0 g/dL 32.5 RDW-CV 11.5 - 15.0 % 12.1 Platelet Count 150 - 400 k/uL 363 Latest Ref Rng 05/10/2024 Protein, Total 6.3 - 8.0 g/dL 7.0 Albumin 3.9 - 4.9 g/dL 4.0 Calcium 8.5 - 10.2 mg/dL 9.2 Bilirubin, Total 0.2 - 1.3 mg/dL 0.2 Alkaline Phosphatase 34 - 123 U/L 134 (H) AST 13 - 35 U/L 16 ALT 7 - 38 U/L 11 Glucose 74 - 99 mg/dL 90 BUN 7 - 21 mg/dL 10 Creatinine 0.58 - 0.96 mg/dL 1.17 (H) Sodium 136 - 144 mmol/L 138 Potassium 3.7 - 5.1 mmol/L 4.3 Chloride 98 - 107 mmol/L 108 (H) CO2 22 - 30 mmol/L 19 (L) Latest Ref Rn 09/05/2022 04/02/2023 10/02/2023 04/01/2024 05/10/2024 Bilirubin, Total 0.2 - 1.3 mg/dL 0.2 <0.2 (L) 0.2 0.2 Alkaline Phosphatase 34 - 123 U/L 93 105 131 (H) 134 (H) AST 13 - 35 U/L 13 20 15 16 ALT 7 - 38 U/L 12 14 11 11 Latest Ref Rn 05/10/2024 GGT 6 - 46 U/L 30 Latest Ref Rng 09/05/2022 04/02/2023 10/02/2023 04/01/2024 05/10/2024 Creatinine 0.58 - 0.96 mg/dL 0.92 0.87 1.00 (H) 1.17 (H) Latest Ref Rng 09/05/2022 04/02/2023 10/02/2023 04/01/2024 Vitamin D 25 Hydroxy 31.0 - 80.0 ng/mL 25.9 (L) 29.0 (L) 43.1 Latest Ref Rng 10/02/2023 Vitamin B12 232 - 1,245 pg/mL 1,168 Methylmalonic Acid <=0.40 umol/L 0.09 TSH 0.270 - 4.200 mIU/L 1.120 10/02/23: Multiple intracranial white matter lesions compatible with multiple sclerosis. No new T2 lesions. No significant parenchymal volume loss. Other Significant Intracranial Findings: None Scattered intramedullary lesions in the thoracic cord compatible with the clinical history of multiple sclerosis. No new T2 intramedullary lesions. No significant volume loss of the upper spinal cord for age. Other Significant cervicothoracic Spine Findings: No significant thoracic canal or foraminal stenosis. IMPRESSION: Ms. Isac Peres is a 33 year old year old female with a history of adult ADD and MS referred by Lizet Brown PA-C for a wellness and preventive medicine consultation regarding MS pain (mostly LE paresthesia and right sided limb pain), but she also has chronic constipation and migraines, we addressed. A wellness and preventive medicine approach was discussed with the patient including risks, benefits, and alternatives. She agrees to proceed. It was emphasized that she should continue with all of her current treating caregivers's recommendations. Treatment plan/recommendations: (G35) Multiple sclerosis (HCC) (primary encounter diagnosis) Comment: Plan: - continue current medications - Discussed anti-inflammatory diet/Dr. Luis Felipe Arroyo's protocol if/when ready and considering GF options - Yoga/meditation for stress/stretching - Acupuncture - magnesium, curcumin (F90.9) Adult ADHD Comment: on adderall Plan: - CONSULT FOR ACUPUNCTURE - breathing/meditation/yoga, walking - magnesium - consider checking zinc (R51.9) Headaches Comment: on migraine meds, continue Plan: - CONSULT FOR ACUPUNCTURE - anti-inflammatory/Mediterranean diet, but consider elimination - magnesium citrate (R74.8) Elevated alkaline phosphatase level Comment: ultrasound scheduled Plan: discussed dietary changes (R20.2) Paresthesia of both lower extremities Plan: acupuncture (K59.09) Chronic constipation Comment: Plan: - increase water, fiber, whole foods - movement - magnesium citrate - probiotic Briefly discussed EWOH as a starting point when she is ready. It has been a pleasure to see Ms. Isac Peres for a wellness and preventive medicine consultation. I have asked Isac Peres to return to see me 6 mo. Thank you for the referral or interest in caring for your whole body and mind. I spent a total of 55 minutes on the date of the service which included preparing to see the patient, [id number] patient care, completing clinical documentation, obtaining and/or reviewing separately obtained history, performing a medically appropriate examination, counseling and educating the patient/family/caregiver, communicating with other HCPs (not separately reported), independently interpreting results (not separately reported), and communicating results to the patient/family/caregiver. documented in this encounter [facility] 05-17-2024 History of Present illness Narrative Chief Complaint Patient presents with: 6 Month Exam: ADHD HPI Isac Peres is a 33 year old female who presents here today for Chronic Medical Conditions. follow up for ADD. ADD: Current Treatment: Adderall XR 30 mg Feels treatment is working well: Yes. Weight loss: No. Insomnia: No. GASTROENTEROLOGY complaints: No. Tremor: No. Mood disorder: No. Chest pain/Palpitations: No. Aware of risks associated with controlled substance use: Yes. Hx of misuse/abuse/diversion of meds: No. Following with neurology for history of MS. She did have recent labs completed which showed slight elevation in alkaline phosphate level. Her blood work 1 month prior was also slightly elevated in this regard. Also elevated is her creatinine. She denies any recent illness. Denies any use of NSAIDs. Past medical history, appointments, medications, allergies reviewed. EXAM: BP 120/80 Pulse 96 Resp 16 Wt 106.6 kg (235 lb) LMP 04/22/2024 (Exact Date) SpO2 98% BMI 41.12 kg/m General Appearance: Well appearing, alert, in no acute distress, well-hydrated, well nourished. and Obese. Lungs: Lungs clear to auscultation. No wheezing, rhonchi, rales.. Heart: RRR without murmur, gallop, or rubs. No ectopy. ASSESSMENT/PLAN: 1. Adult ADHD - ICD9: 314.01, ICD10: F90.9 (primary diagnosis) -Stable, continue current dose of Adderall XR - DEXTROAMPHETAMINE-AMPHETAMINE ER 30 MG 24HR CAPSULE,EXTEND RELEASE - DEXTROAMPHETAMINE-AMPHETAMINE ER 30 MG 24HR CAPSULE,EXTEND RELEASE - DEXTROAMPHETAMINE-AMPHETAMINE ER 30 MG 24HR CAPSULE,EXTEND RELEASE 2. Elevated serum creatinine - ICD9: 790.99, ICD10: R79.89 -Slight elevation in creatinine over the last 2 blood draws. Encouraged hydration, avoiding NSAIDs, get urine sample and repeat kidney function in 1 month. - URINALYSIS, WITH MICROSCOPIC - COMPREHENSIVE METABOLIC PANEL 3. Elevated alkaline phosphatase level - ICD9: 790.5, ICD10: R74.8 -Slight elevation in alkaline phosphate level last 2 blood draws. Get ultrasound of the liver, repeat blood work in 1 month. Provide some reassurance. - US ABD RIGHT UPPER QUADRANT - ALK PHOS ISOENZYM BL - COMPREHENSIVE METABOLIC PANEL Lenny Mena APRN.CNP RTO in 6 months, sooner if needed. Medical Decision Making: Problems: Low: Stable chronic illness Moderate: New problem with uncertain prognosis Data: Unique test(s) ordered: 3+ Risk: Moderate: Drug management Medical Decision Making Level: 4 - Moderate This note was partly generated using [employer] voice recognition dictation and may contain some misspelled or inaccurate words missed on review. documented in this encounter [facility] 05-17-2024 Instructions Lenny Mena APRN.CNP - 05/17/2024 10:58 AM EDT Get blood work in 4 weeks Schedule ultrasound of liver, can be done anytime. Adderall Sent for 3 months Lenny Mena APRN.CNP documented in this encounter [facility] 05-12-2024 Telephone encounter Note Noted. Nothing further for this RN. Encounter closed. Lea Carter RN May 12, 2024 1:31 PM [facility] 05-12-2024 Miscellaneous Notes Noted. Nothing further for this RN. Encounter closed. Lea Carter RN May 12, 2024 1:31 PM Patient had LFTs rechecked. Requesting response. Follow up appointment scheduled for 06/07/24. Please advise. 03/31/24 Young ASSESSMENT: Isac Peres is a 33 year old female with multiple sclerosis. Patient is on Ocrevus for DMT - next infusion tomorrow. Recommend labs with infusion. Will plan for brain MRI in about 6 months. MRI of the brain and/or spinal cord is being ordered to evaluate for efficacy of multiple sclerosis (MS) disease modifying therapy. Disease activity in MS is often not immediately detectable on history or examination, but is sensitively identified on MRI. If identified, new or active MS lesions on MRI may represent suboptimal response to MS therapy, and would change medical management. Reports recent skin changes - will refer to dermatology for further eval. Discussed spasticity/spasms - recommend modifying baclofen dosing. Trial Baclofen increase dose to 20 mg or trial 10 mg around dinner, 10 mg at bedtime (may need to titrate up further). Encouraged stretching exercises. Will refer to PT for gait eval, fall prevention and stretching program. Handicap placard Rx has been mailed to patient. Continue to work with health psychology. PLAN: 1. Continue Ocrevus 2. Labs with infusion 3. Brain MRI in 6 months 4. Increase baclofen dosing 5. Consult PT 6. Consult dermatology 7. Follow-up in 2-3 months or sooner if needed documented in this encounter [facility] 05-12-2024 History of Present illness Narrative Therapy Director offered: Patient declines. Isac is a 33 year old who presents for an annual gynecologic exam without complaints. Menses: cycles every 25-30 days and 4-5 days of flow. 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 History Comments: Sexual Activity: Yes; Male Contraception: Vasectomy PAST MEDICAL HISTORY No date: Adjustment disorder with depressed mood No date: Dysmenorrhea 06/12/2011: Encounter for insertion or removal of intrauterine contraceptive device No date: Multiple sclerosis (HCC) No date: Unspecified asthma(493.90) Comment: SPORTS INDUCED, NO PROBLEMS SINCE AGE 16PAST SURGICAL HISTORY 11/11/2009: DELIVERY ONLY 03/31/11: DELIVERY ONLY Comment: , low transverse 02/18/2018: ESOPHAGOGASTRODUODENOSCOPY TRANSORAL DIAGNOSTIC Comment: EGD 06/10/2016: HYSTEROSCOPY Comment: in office to remove IUD 06/2011, 06/10/2016: INSERTION OF IUD 01/25/10: LAPS SURG CHOLECYSTECTOMY W/CHOLANGIOGRAPHY Comment: Normal IOC No date: PAST SURGICAL HISTORY OF Comment: DIAGNOSTIC LAPAROSCOPY No date: UNSPECIFIED ORAL SURGERY PROCEDURE, BY REPORT Comment: wisdom teeth removed FAMILY HISTORY Problem Relation Age of Onset other (endometrial cancer) Mother Lipids Father Arthritis Maternal Grandmother Asthma Maternal Grandmother Cancer Maternal Grandmother SKIN CANCER Heart Maternal Grandmother Rheumatologic disease Maternal Grandmother Fibromyalgia Cancer Maternal Grandfather Multiple Sclerosis Paternal cousin SOCIAL HISTORY Social History Tobacco Use Smoking status: Never Smokeless tobacco: Never Vaping Use Vaping Use: Never used Substance Use Topics Alcohol use: No Comment: 1/mo Drug use: No REVIEW OF SYSTEMS Abdomen: No abdominal pain, nausea, vomiting, diarrhea, or constipation. No bloating, early satiety, indigestion, or increased flatulence. Bladder: No dysuria, gross hematuria, urinary frequency, urinary urgency, or incontinence. Breast: No breast lumps, nipple d/c, overlying skin changes, redness or skin retraction. Allergies and current medication updated:Yes EXAM: BP 126/80 Ht 5' 3.386 (1.61m) Wt 229 lb (103.9kg) LMP 04/22/2024 BMI 40.07 kg/(m^2). GENERAL: pleasant, female in no apparent distress HEENT: Normocephalic, atraumatic, mucus membranes moist, and no lesions NECK: Supple, full range of motion, no adenopathy, and thyroid normal DERMATOLOGY: Normal, without lesions, non-icteric, and non-hirsute BREAST: soft, non-tender, symmetric, no dominant mass, normal nipple-areolar complex, no lymphadenopathy, and no nipple discharge CHEST: Normal inspiratory effort ABDOMEN: soft, non-tender, and no masses PELVIC: external genitalia normal, normal Bartholin's glands, urethra, [place]'s glands, no vulvar lesions, no cervical lesions, good vaginal support, physiologic discharge present, normal appearing perineal body and perianal region BIMANUAL: uterus normal size, shape and consistency, no adnexal masses, and non-tender RECTOVAGINAL: deferred. NEURO: alert and oriented x3,exam grossly non-focal EXTREMITIES: normal ASSESSMENT/PLAN: 1) Health maintenance: Pap done with HPV. Mammogram starting age 40. Nutrition, exercise and routine health maintenance exams reviewed. Calcium/Vitamin D supplementation information provided. 2) Contraception: vasectomy. Contraceptive options reviewed and information provided. 3) STD screening: Declined STD check. 4) Follow up one year or sooner as needed Sendy Puri APRN.DIRECTOR DIVERSITY documented in this encounter [facility] 05-12-2024 Telephone encounter Note Patient had LFTs rechecked. Requesting response. Follow up appointment scheduled for 06/07/24. Please advise. 03/31/24 Young ASSESSMENT: Isac Peres is a 33 year old female with multiple sclerosis. Patient is on Ocrevus for DMT - next infusion tomorrow. Recommend labs with infusion. Will plan for brain MRI in about 6 months. MRI of the brain and/or spinal cord is being ordered to evaluate for efficacy of multiple sclerosis (MS) disease modifying therapy. Disease activity in MS is often not immediately detectable on history or examination, but is sensitively identified on MRI. If identified, new or active MS lesions on MRI may represent suboptimal response to MS therapy, and would change medical management. Reports recent skin changes - will refer to dermatology for further eval. Discussed spasticity/spasms - recommend modifying baclofen dosing. Trial Baclofen increase dose to 20 mg or trial 10 mg around dinner, 10 mg at bedtime (may need to titrate up further). Encouraged stretching exercises. Will refer to PT for gait eval, fall prevention and stretching program. Handicap placard Rx has been mailed to patient. Continue to work with health psychology. PLAN: 1. Continue Ocrevus 2. Labs with infusion 3. Brain MRI in 6 months 4. Increase baclofen dosing 5. Consult PT 6. Consult dermatology 7. Follow-up in 2-3 months or sooner if needed [facility] 05-10-2024 Telephone encounter Note Patient scheduled. [facility] 05-10-2024 Miscellaneous Notes Patient scheduled. Patient overdue for 6 months for ADHD. Rx sent. PDMP website checked and validated. All prescriptions have been APPROPRIATELY filled. No suspicious activity was identified. 05/10/2024 by Lenny Mena APRN.CNP The following approved medication requests have been transmitted electronically. Requested Prescriptions Pending Prescriptions Disp Refills amphetamine-dextroamphetamine XR (ADDERALL XR) 30 mg capsule 30 capsule 0 Sig: Take 1 capsule by mouth once daily for 30 days. Lenny Mena APRN.CNP Prescription Refill Information The patient has been identified by name and date of : Yes Caregiver verified no other encounters exist for this prescription request: Yes Caregiver confirmed with patient/requestor that no other refills are due, in the near future, with this provider at this time: Yes The last office visit in the department: 10/30/2023 Does the patient have a future office visit with this provider/department: No Requested Prescriptions Pending Prescriptions Disp Refills amphetamine-dextroamphetamine XR (ADDERALL XR) 30 mg capsule 30 capsule 0 Sig: Take 1 capsule by mouth once daily for 30 days. Elsie Gonzáles LPN May 10, 2024 12:02 PM documented in this encounter [facility] 05-10-2024 Telephone encounter Note Patient overdue for 6 months for ADHD. Rx sent. PDMP website checked and validated. All prescriptions have been APPROPRIATELY filled. No suspicious activity was identified. 05/10/2024 by Lenny Mena APRN.CNP The following approved medication requests have been transmitted electronically. Requested Prescriptions Pending Prescriptions Disp Refills amphetamine-dextroamphetamine XR (ADDERALL XR) 30 mg capsule 30 capsule 0 Sig: Take 1 capsule by mouth once daily for 30 days. Lenny Mena APRN.CNP [facility] 05-10-2024 Telephone encounter Note Prescription Refill Information The patient has been identified by name and date of : Yes Caregiver verified no other encounters exist for this prescription request: Yes Caregiver confirmed with patient/requestor that no other refills are due, in the near future, with this provider at this time: Yes The last office visit in the department: 10/30/2023 Does the patient have a future office visit with this provider/department: No Requested Prescriptions Pending Prescriptions Disp Refills amphetamine-dextroamphetamine XR (ADDERALL XR) 30 mg capsule 30 capsule 0 Sig: Take 1 capsule by mouth once daily for 30 days. Elsie Gonzáles LPN May 10, 2024 12:02 PM [facility] 04-19-2024 History of Present illness Narrative Program_ID:[id number] Access Code: [email or web address] URL: [email or web address] Date: 04-19-2024 Prepared By: Chiara Blood Program Notes Exercises - Seated Calf Stretch with Strap - 1 x daily - 7 x weekly - 3 sets - reps - Single Leg Stance on Incline Stance Board - 1 x daily - 7 x weekly - 3 sets - reps - Seated Hamstring Stretch - 1 x daily - 7 x weekly - 3 sets - reps - Modified Kenneth Stretch - 1 x daily - 7 x weekly - 3 sets - reps - Walking with Head Rotation - 1 x daily - 7 x weekly - 3 sets - 10 reps - Walking with Head Nod - 1 x daily - 7 x weekly - 3 sets - 10 reps Images from the original note were not included. Episode Visit Count: 1 Therapist That Will Accept/Oversee The Plan Of Care: Jeremi Guadarrama Start of Care Date: 04/19/24 Onset Date: 10/05/19 Patient Identified by Name and Date of : Yes REHABILITATION AND SPORTS THERAPY PHYSICAL THERAPY EVALUATION PLAN OF CARE: Assessment: Isac Peres presents with diagnosis of MS that interferes with walking in the house, stair negotiation, walking in the community, physical activities, recreational activities . She presents with impairments in balance, gait, overall function, strength, and spasticity. PROMIS (Patient-Reported Outcomes Measurement Information System) scores were reviewed and identified as a rehabilitation concern. Prognosis for therapy is Good due to: current objective clinical presentation, good overall health status, within-session changes, good support system/ coping skills . Recommend soft AFO for outdoor ambulation and long distance. Discussed benefits of aerobic exercise to diver helper in energy levels. Follow up as needed for coordinated visits to assess functional mobility. Goals for Episode of Care: created on 04/19/24 through 04/19/24 -Patient education regarding insight into deficits (met) - Patient / caregiver educated on safe ambulation with soft brace (met) - Patient educated on how to complete home exercise program independently (met) -- Patient / caregiver demonstrates the ability to independently don and doff orthotic devices and demonstrate proper use (met) Patient Goals: walking, stretching Planned Interventions, Frequency, and Duration: Current Frequency: 1 visit Duration: 1 visit Total Number of Visits Planned: 1 Planned Treatment Interventions: Therapeutic exercise (07774), Neuromuscular re-education (68072), Manual therapy (73227), Therapeutic activities (62729), Self-correction management (58704), Gait Training (28730), Patient/Family/Caregiver Education, Body Mechanics Training, Functional training, General Conditioning, Orthosis / DME, Canalith Repositioning Maneuvers (64761) PLAN FOR NEXT VISIT: F/u coordinated visits as needed Patient demonstrates good understanding of plan of care and treatment. The above goals and plan of care were discussed and agreed upon by patient/family. SUBJECTIVE: MS; Had a virtual visit with Lizet where she noted that she was having a few falls. Lizet rec a PT consult. In the past 6 months she has had 3 falls, all were outside- does note some catching of foot. Her does also notice that it is the R foot that is being caught. She notes it is worse when tired or a lot of pain. Does report some balance deficits as well progressive over the past year. She does have some endurance changes- and recovers slowly from over doing it.Has not done MS specific therapy. 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 Recreation / Current Exercise: recreation with kids (13/14 yo) Home Environment Patient Lives With: Family Assistance Available: Part-Time Home Type: Ranch Entry To Home: Stairs, Without Rail Number Of Stairs Into Home: 3 Tub/Shower Type: tub shower Laundry: first floor Equipment Owned: (none) Transportation: (IND) Intake Information: Prescription present Falls Interview: Two or more falls in the last year, Comments Falls Intervention: More thorough falls assessment to be performed Falls Comments: three falls in past 6 mo all outside Aquatic Screen: No Driving Status: Driving without difficulty Fatigue: At rest Heat Susceptibility : Yes Heat Susceptibility Present: Does not currently use cooling strategies Pain: Pain Pain Level: 1 (gets up to 9) Pain Location: Shoulder - Right Description: Sharp, Tenderness Frequency: Continuous, With movement PROMIS Scales 04/19/2024 12/28/2022 2022 Higher is Better Phys Func - Score 41 (mild dysfunction) 44 (mild dysfunction) 46 (within normal limits) Phys Func - Percentile 18 27 34 Self-Eff Symptom - Score 45 (Average) Self-Eff Symptom - Percentile 31 T-scores: mean of general population = 50. 5 points is clinically meaningfully difference Percentiles provide an indication of how the patient's score ranks in relation to the general population. Higher percentile rankings indicate better function/quality of life. 50th percentile is the average of the general population and indicates half of respondents had a worse score. OBJECTIVE MEASURES WITH LEVEL OF FUNCTION: UE AROM R UE AROM: lacking full AROM flexion and ABD, tight end feel with PROM and pain UE and Cervical Strength R Shoulder Flexion: (NT due to pain) R Shoulder Abduction (C5): (NT due to pain) R Elbow Extension (C7): 5/5 R Elbow Flexion (C6): 5/5 R Wrist Extension: 5/5 L Shoulder Flexion: 5/5 L Elbow Extension (C7): 5/5 L Elbow Flexion (C6): 5/5 L Wrist Extension: 5/5 LE Strength R Hip Flexion (L2): 4/5 R Knee Extension (L3): 5/5 R Knee Flexion: 5/5 R Ankle Dorsiflexion (L4): 4+/5 L Hip Flexion (L2): 4+/5 L Knee Extension (L3): 5/5 L Knee Flexion: 5/5 L Ankle Dorsiflexion (L4): 5/5 Tone R Hip Adductor: 1+: Slight increase in tone, manifiested by a catch followed by min resistance throughout remainder (less than 1/2) R Knee Extensor: 0: No increase in tone R Knee Flexor: 0: No increase in tone R Plantarflexor: 2: Marked increase in tone through most of ROM but effected part easily moved L Hip Adductor: 0: No increase in tone L Knee Extensor: 0: No increase in tone L Knee Flexor: 0: No increase in tone L Plantarflexor: 0: No increase in tone Functional Performance Test Results Assistive Device: None Functional Gait Assessment Gait level surface : 3 - Normal- walks 20' no assist device, good speed, no imbalance, normal gait pattern Change in gait speed: 3 - Normal- albe to smoothly change walking speed without loss of balance or gait deivations. Shows significant difference in walking speeds Gait and horizontal head turns: 2 - Mild impairment- performs R/L head turns smoothly with slight change in gait velocity, minor disruption to smooth gait path or uses assistive device Gait and vertical head turns: 2 - Mild impairment- performs up/ down head turns smoothly with slight change in gait velocity, minor disruption to smooth gait path or uses assistive device Gait and pivot: 3 - Normal- pivot turn safely within 3 sec, stops quickly, no loss of balance Step over obstacle: 3 - Normal- is able to steop over box without changing speed, no evidence of imbalance Gait with narrow base of support : 2 - Mild impairment- ambulates 7-9 steps Gait with eyes closed : 2 - Mild impairment- walks 20' uses assist device, slower speed, mild gait deviation, deviates 6-10 outside of 12 walkway Ambulates backward : 3 - Normal- walks 20' no assist device, good speed, no imbalance, normal gait pattern, deviates no more than 6 outside 12 walk[address] Steps: 3 - Normal- alternating feet, no rail Functional Gait Assessment Total : 26 Education: Education Learning Preferences: Demonstration, Explanation, Performance, Printed Materials Barriers: None Learning/educational needs: Home exercise program, Plan of Care, Changes in Plan of Care Education Provided: Yes, see treatment interventions for education provided Education Provided To: Patient Education Mode/Type: Demonstration, Explanation/Discussion, Literature/Printed Materials, Performance, Teach Back Response to Education/Teach Back: States/Identifies, Return Demonstration, Requires Review/Additional Education TREATMENT: PT Treatment Interventions: Neuromuscular Re-Education, Gait Training, Therapeutic Activity, Therapeutic Exercise Evaluation Therapeutic Exercise: 1: Updated HEP to include stretching program: calf stretch on incline board vs with strap, hamstring stretch seated, EOM hip flexor stretch for spasticity management 2: pt with R shoulder pain with AROM limited ROM, rec to f/u with PCP due to appearing orthopedic in nature 3: Reviewed the benefits of aerobic exercise, encoruaged daily walking program vs engagement in gym based exercise Skilled Intervention: Patient was educated in proper exercise technique and purpose for exercises. Reviewed and educated patient on additions/changes for home exercise program as above (*). Skilled judgment was used in selection of appropriate interventions. Provided written instruction for home exercise program to facilitate proper performance and compliance. Correct performance of therapeutic exercises was facilitated with verbal, visual, and tactile cuing. Educated patient on rationale for performing exercises in regards to decreasing fatigue , improving fitness, including balance, increase ease of ADL, and ROM and function . Patient education as noted. Therapeutic Activity: 1: Review of cooling strategies to increase access to exercise without increase in sx 2: Provided hand out of polar products and thermaparel. 3: Provided application through [employer] Skilled Intervention: Education as noted Neuromuscular Re-Education: 1: Patient educated on insight into deficits, overall doing well 2: *HEP to include walking with H/V HT Skilled Intervention: Skilled judgment used to assess appropriate program for balance and coordination activity. Reviewed and educated patient on additions/changes for home program as noted above with an (*). Correct performance of home program was facilitated with verbal and visual cueing. Patient education as noted. Gait Trainin: Trial of soft ankle foot orthosis lower extremity with notable improvements in toe clearance, gait speed, step symmetry, balance, and reduction of toe catching. Patient also reported subjective improvement and agreed to use for community ambulation. Rec soft AFO either foot up vs applecore for outdoor or long distance amb 2: Trial of Drive Nitro 4ww rollator with notable improvements in gait speed, gait quality, posture, and balance/stability. Pt also reported subjective improvement and agreed to use for community mobility. Skilled Intervention: Patient was provided stand by assist during pre-gait/gait training to prevent falls and insure safety. Facilitated proper gait cycle with the use of verbal and visual cues for correction of gait deviations identified in the objective section above. Skilled judgment used to assess selection, proper sizing, and proper use of orthotic device; soft AFO Billing * Evaluation Low Complexity: 1 Unit Therapeutic Exercise Treatment Minutes: 12 Therapeutic Activity Treatment Minutes: 10 Neuromuscular Re-Education Treatment Minutes: 5 Gait Training Treatment Minutes: 12 Skilled Treatment Time Minutes (timed and untimed codes): 49 Total Session Time (minutes): 49 Session Start Time : 1233 Session Stop Time : 1322 Chiara Blood PT, DPT Board Certified Clinical Specialist in Neurologic Physical Therapy documented in this encounter [facility] 03-31-2024 History of Present illness Narrative Images from the original note were not included. [facility] FOLLOWUP/ESTABLISHED PATIENT VIRTUAL VISIT PRINCIPAL NEUROLOGIC DIAGNOSIS: multiple sclerosis DISEASE SUMMARY Date of onset: 2019 Date of diagnosis of MS: NA Disease course at onset: Relapsing-Remitting Current disease course: Progressive with relapses Previous disease therapies: NA Current disease therapy: Ocrevus (started 10/02/22) Most recent MRI brain: 10/02/23 Most recent MRI cervical spine: 02/27/23 Most recent MRI thoracic spine:10/02/23 CSF: NA VZV serology result and date: NA AQP4-IgG: NA MOG-IgG: NA CHIEF COMPLAINT: Follow-up on MS disease modifying therapy INTERVAL HISTORY: Usual treating team: Patricia/Kevin I have communicated my name and active licensure. The patient's identity and physical location were verified at the time of this visit. Either the patient or their legal sales representative health insurance has been informed of the risks and benefits of -- and alternatives to -- treatment through a remote evaluation and consents to proceed with the evaluation remotely. Today's visit is being completed virtually; pt consented. Accompanied by . Last seen 10/02/23. Currently taking Ocrevus. End of school year was difficult On face and then on leg, getting extra brown splotchy spots on face where she is getting sun and may have been burnt - denies pain - denies pruritic changes - asking if meds interacting? She has been tripping more recently - clumsiness is worse - ongoing x 2-3 months - falls x 3 - one the last Thursday and fell on face. - denies major injury - all have been outside - foot seems to be catching Has met with health psychology and found it helpful 1 UTI in October - treated with Abx Reports a couple different flairs - impacting leg - knee feels 3x the size that it is (no swelling, sensory disruption noted) - upper arm - feels painful like muscle ripping in half. Reports some spasms at night when more fatigued in evening Takes baclofen night dose around 8:30 pm (10 mg) - spasms start increasing around 7-7:30 and get worse around 9-10 pm REVIEW OF SYSTEMS: Mood: PHQ9 responses reviewed and appear below Spasticity:see HPI Bladder: see HPI Pain:reviewed on nursing intake documentation Neuro-QoL Functions (higher=better functioning) Flowsheet Row Appointment from 03/31/2024 in [facility] Office Visit from 10/02/2023 in [facility] from 07/03/2023 in [facility] Upper Extremity Domain T Score 45 39 42 Lower Extremity Domain T Score 47 44 42 Cognitive Function Domain T Score 32 27 29 Positive Affect Well Being T Score -- -- -- Ability To Participate In Social Roles T Score 43 40 37 Satisfaction With Social Roles T Score 35 35 35 Neuro-QoL Symptoms (higher=worse symptoms) Flowsheet Row Appointment from 03/31/2024 in [facility] from 02/16/2024 in [facility] from 11/26/2023 in [facility] Sleep Domain T Score 63 -- -- Fatigue Domain T Score 63 -- -- Anxiety Domain T Score 48 -- -- Depression Domain T Score 47 49 49 Stigma Domain T Score 54 -- -- Emotional Behavior Dyscontrol T Score -- -- -- PAST HISTORY was reviewed and updated: PAST MEDICAL HISTORY Diagnosis Date Adjustment disorder with depressed mood Dysmenorrhea Encounter for insertion or removal of intrauterine contraceptive device 06/12/11 Unspecified asthma(493.90) SPORTS INDUCED, NO PROBLEMS SINCE AGE 16 PAST SURGICAL HISTORY Procedure Laterality Date DELIVERY ONLY 11/11/2009 DELIVERY ONLY 03/31/11 , low transverse ESOPHAGOGASTRODUODENOSCOPY TRANSORAL DIAGNOSTIC 02/18/2018 EGD HYSTEROSCOPY 06/10/2016 in office to remove IUD INSERTION OF IUD 06/2011, 06/10/2016 LAPS SURG CHOLECYSTECTOMY W/CHOLANGIOGRAPHY 01/25/10 Normal IOC PAST SURGICAL HISTORY OF DIAGNOSTIC LAPAROSCOPY UNSPECIFIED ORAL SURGERY PROCEDURE, BY REPORT wisdom teeth removed MEDICATIONS and ALLERGIES were reviewed and updated. SOCIAL HISTORY was reviewed and updated: Current living situation: At home EXAM: General Appearance: well appearing, in no acute distress Mental status evaluation during the interview and examination showed normal level of consciousness, orientation, language, memory, praxis, and higher intellectual function Affect: Normal Speech: normal RESULTS: Monitoring labs: CBC + Diff Component Value Date WBC 8.36 04/02/2023 HB 13.5 04/02/2023 HCT 41.1 04/02/2023 PLT 350 04/02/2023 ABSLYMPH 1.81 04/02/2023 CMP Component Value Date AST 20 04/02/2023 GLUC 66 (L) 04/02/2023 BUN 17 04/02/2023 CREAT 0.87 04/02/2023 NA 137 04/02/2023 K 4.6 04/02/2023 CHLOR 104 04/02/2023 ALT 14 04/02/2023 MRI brain: No new brain MRI to review ASSESSMENT: Isac Peres is a 33 year old female with multiple sclerosis. Patient is on Ocrevus for DMT - next infusion tomorrow. Recommend labs with infusion. Will plan for brain MRI in about 6 months. MRI of the brain and/or spinal cord is being ordered to evaluate for efficacy of multiple sclerosis (MS) disease modifying therapy. Disease activity in MS is often not immediately detectable on history or examination, but is sensitively identified on MRI. If identified, new or active MS lesions on MRI may represent suboptimal response to MS therapy, and would change medical management. Reports recent skin changes - will refer to dermatology for further eval. Discussed spasticity/spasms - recommend modifying baclofen dosing. Trial Baclofen increase dose to 20 mg or trial 10 mg around dinner, 10 mg at bedtime (may need to titrate up further). Encouraged stretching exercises. Will refer to PT for gait eval, fall prevention and stretching program. Handicap placard Rx has been mailed to patient. Continue to work with health psychology. PLAN: 1. Continue Ocrevus 2. Labs with infusion 3. Brain MRI in 6 months 4. Increase baclofen dosing 5. Consult PT 6. Consult dermatology 7. Follow-up in 2-3 months or sooner if needed I spent a total of 35 minutes on the date of the service which included preparing to see the patient, [id number] patient care, completing clinical documentation, obtaining and/or reviewing separately obtained history, counseling and educating the patient/family/caregiver, ordering medications, tests, or procedures, and communicating results to the patient/family/caregiver. Lizet Brown PA-C documented in this encounter [facility] 03-09-2024 Telephone encounter Note The following approved medication requests have been transmitted electronically. Requested Prescriptions Signed Prescriptions Disp Refills topiramate (TOPAMAX) 50 mg tablet 45 tablet 5 Sig: TAKE 1 & 1/2 (ONE & ONE-HALF) TABLETS BY MOUTH ONCE DAILY AT BEDTIME Authorizing Provider: LIZET BROWN PA-C [facility] 03-09-2024 Miscellaneous Notes The following approved medication requests have been transmitted electronically. Requested Prescriptions Signed Prescriptions Disp Refills topiramate (TOPAMAX) 50 mg tablet 45 tablet 5 Sig: TAKE 1 & 1/2 (ONE & ONE-HALF) TABLETS BY MOUTH ONCE DAILY AT BEDTIME Authorizing Provider: LIZET BROWN PA-C Source : electronic from pharmacy requesting refill. Delivery : e-script Requested Prescriptions Pending Prescriptions Disp Refills topiramate (TOPAMAX) 50 mg tablet [Pharmacy Med Name: Topiramate 50 MG Oral Tablet] 45 tablet 5 Sig: TAKE 1 & 1/2 (ONE & ONE-HALF) TABLETS BY MOUTH ONCE DAILY AT BEDTIME DX : Patient last seen: 10/02/2023 Next Appointment : 03/31/2024 Amanda Das documented in this encounter [facility] 03-09-2024 Telephone encounter Note Source : electronic from pharmacy requesting refill. Delivery : e-script Requested Prescriptions Pending Prescriptions Disp Refills topiramate (TOPAMAX) 50 mg tablet [Pharmacy Med Name: Topiramate 50 MG Oral Tablet] 45 tablet 5 Sig: TAKE 1 & 1/2 (ONE & ONE-HALF) TABLETS BY MOUTH ONCE DAILY AT BEDTIME DX : Patient last seen: 10/02/2023 Next Appointment : 03/31/2024 Amanda Das [facility] Work Phone: 02-16-2024 Telephone encounter Note The following approved medication requests have been transmitted electronically. Requested Prescriptions Signed Prescriptions Disp Refills amantadine HCl (SYMMETREL) 100 mg capsule 60 capsule 5 Sig: Take 1 capsule by mouth twice daily Authorizing Provider: LIZET BROWN PA-C [facility] 02-16-2024 Miscellaneous Notes The following approved medication requests have been transmitted electronically. Requested Prescriptions Signed Prescriptions Disp Refills amantadine HCl (SYMMETREL) 100 mg capsule 60 capsule 5 Sig: Take 1 capsule by mouth twice daily Authorizing Provider: LIZET BROWN PA-C Source : electronic from pharmacy requesting refill. Delivery : e-script Requested Prescriptions Pending Prescriptions Disp Refills amantadine HCl (SYMMETREL) 100 mg capsule [Pharmacy Med Name: Amantadine HCl 100 MG Oral Capsule] 60 capsule 5 Sig: Take 1 capsule by mouth twice daily DX : Patient last seen: 10/02/2023 Next Appointment : 03/31/2024 Amanda Das documented in this encounter [facility] 02-15-2024 Telephone encounter Note Source : electronic from pharmacy requesting refill. Delivery : e-script Requested Prescriptions Pending Prescriptions Disp Refills amantadine HCl (SYMMETREL) 100 mg capsule [Pharmacy Med Name: Amantadine HCl 100 MG Oral Capsule] 60 capsule 5 Sig: Take 1 capsule by mouth twice daily DX : Patient last seen: 10/02/2023 Next Appointment : 03/31/2024 Amanda Das [facility] Work Phone: 02-12-2024 Telephone encounter Note The following approved medication requests have been transmitted electronically. Requested Prescriptions Signed Prescriptions Disp Refills topiramate (TOPAMAX) 50 mg tablet 45 tablet 0 Sig: TAKE 1 & 1/2 (ONE & ONE-HALF) TABLETS BY MOUTH ONCE DAILY AT BEDTIME Authorizing Provider: LIZET BROWN PA-C [facility] 02-12-2024 Miscellaneous Notes The following approved medication requests have been transmitted electronically. Requested Prescriptions Signed Prescriptions Disp Refills topiramate (TOPAMAX) 50 mg tablet 45 tablet 0 Sig: TAKE 1 & 1/2 (ONE & ONE-HALF) TABLETS BY MOUTH ONCE DAILY AT BEDTIME Authorizing Provider: LIZET BROWN PA-C Source : electronic from pharmacy requesting refill. Delivery : e-script Requested Prescriptions Pending Prescriptions Disp Refills topiramate (TOPAMAX) 50 mg tablet [Pharmacy Med Name: Topiramate 50 MG Oral Tablet] 45 tablet 0 Sig: TAKE 1 & 1/2 (ONE & ONE-HALF) TABLETS BY MOUTH ONCE DAILY AT BEDTIME DX : Patient last seen: 10/02/2023 Next Appointment : 03/31/2024 Amanda Das documented in this encounter [facility] 02-12-2024 Telephone encounter Note Source : electronic from pharmacy requesting refill. Delivery : e-script Requested Prescriptions Pending Prescriptions Disp Refills topiramate (TOPAMAX) 50 mg tablet [Pharmacy Med Name: Topiramate 50 MG Oral Tablet] 45 tablet 0 Sig: TAKE 1 & 1/2 (ONE & ONE-HALF) TABLETS BY MOUTH ONCE DAILY AT BEDTIME DX : Patient last seen: 10/02/2023 Next Appointment : 03/31/2024 Amanda Das [facility] Work Phone: 01-18-2024 Miscellaneous Notes MARTHA has been approved from 01/18/24-01/17/25. Fax from insurance sent to scanning to be uploaded in patients chart. THANIA Knight PA requested via CMM for patients Adderall XR 30 mg capsules. Hung: [id number] Submitted, please keep open until determination is made. Thank you. THANIA Knight documented in this encounter [facility] 12-22-2023 Miscellaneous Notes The following approved medication requests have been transmitted electronically. Requested Prescriptions Signed Prescriptions Disp Refills baclofen 10 mg tablet 60 tablet 11 Sig: Take 1 tablet by mouth in the evening and 1 tablet at bedtime Authorizing Provider: LIZET BROWN PA-C Source : mychart from patient requesting refill. Delivery : e-script Requested Prescriptions Pending Prescriptions Disp Refills baclofen 10 mg tablet 60 tablet 11 Sig: Take 1 tablet by mouth in the evening and 1 tablet at bedtime DX : Patient last seen: 10/02/2023 Next Appointment : 03/31/2024 Amanda Das documented in this encounter [facility] 12-15-2023 Miscellaneous Notes The following approved medication requests have been transmitted electronically. Requested Prescriptions Signed Prescriptions Disp Refills amantadine HCl (SYMMETREL) 100 mg capsule 60 capsule 0 Sig: Take 1 capsule by mouth twice daily Authorizing Provider: LIZET BROWN PA-C Source : electronic from pharmacy requesting refill. Delivery : e-script Requested Prescriptions Pending Prescriptions Disp Refills amantadine HCl (SYMMETREL) 100 mg capsule [Pharmacy Med Name: Amantadine HCl 100 MG Oral Capsule] 60 capsule 0 Sig: Take 1 capsule by mouth twice daily DX : Patient last seen 10-02-2023 Next Appointment : 03-31-2024 Gisella Connor documented in this encounter [facility] 12-08-2023 Miscellaneous Notes Approved. PDMP website checked and validated. All prescriptions have been APPROPRIATELY filled. No suspicious activity was identified. 12/08/2023 by Lenny Mena APRN.CNP The following approved medication requests have been transmitted electronically. Requested Prescriptions Signed Prescriptions Disp Refills amphetamine-dextroamphetamine XR (ADDERALL XR) 30 mg capsule 30 capsule 0 Sig: Take 1 capsule by mouth once daily for 30 days. Authorizing Provider: LENNY MENA amphetamine-dextroamphetamine XR (ADDERALL XR) 30 mg capsule 30 capsule 0 Sig: Take 1 capsule by mouth once daily for 30 days. Do not start before January 07, 2024. Authorizing Provider: LENNY MENA amphetamine-dextroamphetamine XR (ADDERALL XR) 30 mg capsule 30 capsule 0 Sig: Take 1 capsule by mouth once daily for 30 days. Do not start before February 06, 2024. Authorizing Provider: LENNY MENA APRN.CNP Patient has been identified by name and date of : Yes, Provider Chiara Pedersen CNP Date December 08, 2023 Time 9:17 AM Patient mycharts for refill(s): Requested Prescriptions Pending Prescriptions Disp Refills amphetamine-dextroamphetamine XR (ADDERALL XR) 30 mg capsule 30 capsule 0 Sig: Take 1 capsule by mouth once daily for 30 days. Date of last office visit in primary care: 10/30/2023 Date of next office visit in primary care: Visit date not found (No appt) Last Rx: 10/30/23 #30 w/0. Please advise. Thank you. Callie George Ma. documented in this encounter [facility] 09-17-2023 History of Present illness Narrative This note was created using [employer]. Subjective Isac Peres is a 33 year old female. HPI 33-year-old female presents for cough, congestion, body aches, shortness of breath. Patient states that she has had nasal congestion for about 2 weeks. She states she is blowing her nose a lot. She states that she had a sore throat a few weeks ago, but that is now resolved. She now has a cough that started less than a week ago. She states it is a dry cough. No history of COPD or asthma. She does report some shortness of breath with coughing. No wheezing. She does have history of MS and is on immunosuppressants. She has not had any fevers. No vomiting or diarrhea. 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 No other complaint. PAST MEDICAL HISTORY Diagnosis Date Adjustment disorder with depressed mood Dysmenorrhea Encounter for insertion or removal of intrauterine contraceptive device 06/12/11 Unspecified asthma(493.90) SPORTS INDUCED, NO PROBLEMS SINCE AGE 16 PAST SURGICAL HISTORY Procedure Laterality Date DELIVERY ONLY 11/11/2009 DELIVERY ONLY 03/31/11 , low transverse ESOPHAGOGASTRODUODENOSCOPY TRANSORAL DIAGNOSTIC 02/18/2018 EGD HYSTEROSCOPY 06/10/2016 in office to remove IUD INSERTION OF IUD 06/2011, 06/10/2016 LAPS SURG CHOLECYSTECTOMY W/CHOLANGIOGRAPHY 01/25/10 Normal IOC PAST SURGICAL HISTORY OF DIAGNOSTIC LAPAROSCOPY UNSPECIFIED ORAL SURGERY PROCEDURE, BY REPORT wisdom teeth removed ALLERGIES Patient has no known allergies. MEDICATIONS topiramate (TOPAMAX) 50 mg tablet TAKE 1 & 1/2 (ONE & ONE-HALF) TABLETS BY MOUTH ONCE DAILY AT BEDTIME amantadine HCl (SYMMETREL) 100 mg capsule Take 1 capsule by mouth two times a day. gabapentin (NEURONTIN) 300 mg capsule Take 2 capsules by mouth three times a day for 180 days. May take additional 300 mg as needed PRN pain amphetamine-dextroamphetamine XR (ADDERALL XR) 20 mg capsule Take 1 capsule by mouth once daily for 30 days. DULoxetine (CYMBALTA) 60 mg capsule Take 1 capsule by mouth once daily baclofen 10 mg tablet Take 1 tablet by mouth in the evening and 1 tablet at bedtime ocrelizumab (OCREVUS INTRAVENOUS) Inject intravenously once every 6 months. Cholecalciferol, Vitamin D3, 125 mcg (5,000 unit) cap Take 1 capsule by mouth once daily. albuterol HFA (VENTOLIN HFA) 90 mcg/actuation inhaler Inhale 2 Puffs as instructed every 4 hours as needed for wheezing/shortness of breath. ergocalciferol 50,000 unit capsule (VITAMIN D2, DRISDOL) Take 1 capsule by mouth one time a week. FAMILY HISTORY Problem Relation Age of Onset other (endometrial cancer) Mother Lipids Father Arthritis Maternal Grandmother Asthma Maternal Grandmother Cancer Maternal Grandmother SKIN CANCER Heart Maternal Grandmother Rheumatologic disease Maternal Grandmother Fibromyalgia Cancer Maternal Grandfather Multiple Sclerosis Paternal cousin Social History Tobacco Use Smoking status: Never Smokeless tobacco: Never Vaping Use Vaping Use: Never used Substance Use Topics Alcohol use: No Comment: 1/mo Drug use: No Review of Systems Constitutional: Negative for chills and fever. HENT: Positive for congestion. Negative for ear pain and sore throat. Respiratory: Positive for cough and shortness of breath (With coughing). Negative for wheezing. Cardiovascular: Negative for chest pain and leg swelling. Gastrointestinal: Negative for diarrhea and vomiting. Musculoskeletal: Positive for myalgias. Objective BP 108/77 Pulse 86 Temp 36.9 C (98.5 F) Resp 18 Wt 108.9 kg (240 lb) LMP 2023 (Approximate) SpO2 99% BMI 42.51 kg/m Physical Exam Vitals and nursing note reviewed. Constitutional: General: She is not in acute distress. Appearance: Normal appearance. She is not toxic-appearing. HENT: Right Ear: Tympanic membrane and ear canal normal. Left Ear: Tympanic membrane and ear canal normal. Nose: Mucosal edema present. Mouth/Throat: Mouth: Mucous membranes are moist. Pharynx: No oropharyngeal exudate or posterior oropharyngeal erythema. Eyes: Conjunctiva/sclera: Conjunctivae normal. Cardiovascular: Rate and Rhythm: Normal rate and regular rhythm. Pulmonary: Effort: Pulmonary effort is normal. No respiratory distress. Breath sounds: Decreased breath sounds present. No wheezing, rhonchi or rales. Comments: Slightly diminished breath sounds, but clear throughout. Neurological: Mental Status: She is alert. Assessment and Plan ASSESSMENT/PLAN: 1. Sinobronchitis - ICD9: 473.9, 490, ICD10: J32.9, J40 (primary diagnosis) - Will begin treatment with Augmentin 875 mg PO BID for 5 days - Supportive care with plenty of fluids, rest, and analgesia prn. 2. Acute cough - ICD9: 786.2, ICD10: R05.1 - XR CHEST 2V FRONTAL/LAT -CXR reveals no acute abnormality. -Rx for Augmentin for sinobronchitis. Symptoms x 2 weeks. Rx for albuterol inhaler. -Declines COVID/flu/RSV swab. Diagnosis and treatment plan were discussed and questions were answered to the patient's satisfaction. Pt acknowledged understanding of concepts and follow up plan. Specific signs and symptoms that would indicate the need for higher level of care were discussed in detail warranting prompt ER evaluation. MARTHA Espinoza documented in this encounter [facility] 09-08-2023 Miscellaneous Notes The following approved medication requests have been transmitted electronically. Requested Prescriptions Signed Prescriptions Disp Refills topiramate (TOPAMAX) 50 mg tablet 45 tablet 0 Sig: TAKE 1 & 1/2 (ONE & ONE-HALF) TABLETS BY MOUTH ONCE DAILY AT BEDTIME Authorizing Provider: LIZET BROWN PA-C Source : electronic from pharmacy requesting refill. Delivery : e-script Requested Prescriptions Pending Prescriptions Disp Refills topiramate (TOPAMAX) 50 mg tablet [Pharmacy Med Name: Topiramate 50 MG Oral Tablet] 45 tablet 0 Sig: TAKE 1 & 1/2 (ONE & ONE-HALF) TABLETS BY MOUTH ONCE DAILY AT BEDTIME DX : Patient last seen 07/03/2023 Next Appointment : 10/02/2023 BONILLA Joseph ' documented in this encounter [facility] 07-03-2023 Miscellaneous Notes Summary: APPOINTMENT LVM FOR PATIENT TO CALL SO WE CAN GET HER SCHEDULED FOR A CONSULT TO PSYCHOLOGY documented in this encounter [facility] 06-15-2023 Miscellaneous Notes Approved. PDMP website checked and validated. All prescriptions have been APPROPRIATELY filled. No suspicious activity was identified. 06/15/2023 by Lenny Mena APRN.DIRECTOR [employer]ERSITY The following approved medication requests have been transmitted electronically. Requested Prescriptions Signed Prescriptions Disp Refills amphetamine-dextroamphetamine XR (ADDERALL XR) 20 mg capsule 30 capsule 0 Sig: Take 1 capsule by mouth once daily for 30 days. Authorizing Provider: LENNY MENA APRN.CNP Patient phones requesting refills as follows: Requested Prescriptions Pending Prescriptions Disp Refills amphetamine-dextroamphetamine XR (ADDERALL XR) 20 mg capsule 30 capsule 0 Sig: Take 1 capsule by mouth once daily for 30 days. EVERARDO-09/15/22 Labs-04/02/23 NOV-none Please review and advise. Eva Baig LPN documented in this encounter [facility] 05-18-2023 Miscellaneous Notes The following approved medication requests have been transmitted electronically. Requested Prescriptions Signed Prescriptions Disp Refills DULoxetine (CYMBALTA) 60 mg capsule 90 capsule 1 Sig: Take 1 capsule by mouth once daily Authorizing Provider: GILMAR GATES APRN.DIRECTOR DIVERSITY Source : electronic from pharmacy requesting refill. Delivery : e-script Requested Prescriptions Pending Prescriptions Disp Refills DULoxetine (CYMBALTA) 60 mg capsule [Pharmacy Med Name: DULoxetine HCl 60 MG Oral Capsule Delayed Release Particles] 90 capsule 1 Sig: Take 1 capsule by mouth once daily DX : Patient last seen; 04/02/2023 Next Appointment : 10/02/2023 Amanda Das documented in this encounter [facility] 04-14-2023 Miscellaneous Notes The following approved medication requests have been transmitted electronically. Requested Prescriptions Signed Prescriptions Disp Refills topiramate (TOPAMAX) 50 mg tablet 45 tablet 3 Sig: TAKE 1 & 1/2 (ONE & ONE-HALF) TABLETS BY MOUTH ONCE DAILY AT BEDTIME Authorizing Provider: LIZET BROWN PA-C Source : electronic from pharmacy requesting refill. Delivery : e-script Requested Prescriptions Pending Prescriptions Disp Refills topiramate (TOPAMAX) 50 mg tablet 45 tablet 3 Sig: TAKE 1 & 1/2 (ONE & ONE-HALF) TABLETS BY MOUTH ONCE DAILY AT BEDTIME Strength: 50 mg DX : Patient last seen: 04/02/2023 Next Appointment : 10/02/2023 Amanda Das documented in this encounter [facility] 04-13-2023 Miscellaneous Notes Approved. PDMP website checked and validated. All prescriptions have been APPROPRIATELY filled. No suspicious activity was identified. 04/13/2023 by Lenny Mena APRN.CNP The following approved medication requests have been transmitted electronically. Requested Prescriptions Signed Prescriptions Disp Refills amphetamine-dextroamphetamine XR (ADDERALL XR) 20 mg biphasic capsule 30 capsule 0 Sig: Take 1 capsule by mouth once daily for 30 days. Authorizing Provider: LENNY MENA APRN.CNP Patient has been identified by name and date of : Yes Patient phones for refill(s): Requested Prescriptions Pending Prescriptions Disp Refills amphetamine-dextroamphetamine XR (ADDERALL XR) 20 mg biphasic capsule 30 capsule 0 Sig: Take 1 capsule by mouth once daily for 30 days. Date of last office visit in primary care: EVERARDO 09/15/2022 NOV not scheduled Last 2 Encounter Wt Readings: Date: Wt: 04/02/2023 88.5 kg (195 lb) 11/17/2022 89.8 kg (198 lb) Please advise. Thank you. THANIA Knight documented in this encounter [facility] 04-03-2023 Miscellaneous Notes Summary: Appointment Called to schedule health psychology appt per Lizet Brown staff msg request, lvm with phone number to call when ready to schedule documented in this encounter [facility] 04-02-2023 Instructions Lizet Brown PA-C - 04/02/2023 1:14 PM EDT FREQUENT BLADDER IRRITANTS Artificial sweeteners (NutraSweet, etc) Alcoholic beverages of all kinds Apples/apple juice Caffeine of any kind Cantaloupe Carbonated drinks, lesli Chilies/spicy foods Chocolate [place] fruits Coffee (including decaf) Cranberries/cranberry juice Grapefruit/grapefruit juice Guava Lemon juice/limes Oranges/orange juice Peaches Pineapple Plumsar Strawberries Tea Tomatoes/tomato based products Vinegar Vitamin B Complex SUBSTITUTIONS Alcohol Substitute: Late harvest dessert hyacinth (low acid content) Artificial Sweeteners: Fructose as found in [employer] [place] Flavor: Use orange or campo peel scrapings for flavor. - Do not use white part of rind. Chocolate Substitute: Ovaltine instead of chocolate drinks; Carob for chocolate in recipes Coffee Drinkers: KAVA & Rombauts (low acid instant), Flournoy Decaf from [employer]. Low Acid Fruits: Pears, apricots, papaya, watermelon. Tea Drinkers: Non-citrus herbal tea, sun-brewed tea; Weak tea: quickly dunk a tea bag in water 4 times to color the water. Vitamin Substitutes: FOR C: use Calcium carbonate co-buffered with calcium ascorbate for E: take it in powdered form instead of oil. Capsule; for B: use only B6. NOTE: Concentrated urine is also irritating to the bladder and gives the urge to urinate at lower volumes than dilute urine. It is also important to watch the amount of caffeine in medications that you may be taking such as some over the counter pain relievers, etc. documented in this encounter [facility] 04-02-2023 History of Present illness Narrative Images from the original note were not included. [facility] MULTIPLE SCLEROSIS FOLLOWUP/ESTABLISHED PATIENT VISIT PRINCIPAL NEUROLOGIC DIAGNOSIS: multiple sclerosis DISEASE SUMMARY Date of onset: 2019 Date of diagnosis of MS: NA Disease course at onset: Relapsing-Remitting Current disease course: Progressive with relapses Previous disease therapies: NA Current disease therapy: Ocrevus (started 10/02/22) Most recent MRI brain: 02/27/23 Most recent MRI cervical spine: 02/27/23 Most recent MRI thoracic spine: 02/27/23 CSF: NA VZV serology result and date: NA AQP4-IgG: NA MOG-IgG: NA CHIEF COMPLAINT: Follow-up on MS disease modifying therapy INTERVAL HISTORY: Usual treating team: Patricia/Kevin The patient is accompanied by . The patient was last seen 12/25/22, currently taking Ocrevus. Tolerating well. Since the patient's last visit the patient reports overall feeling worse. Bladder issues - started around end of February - frequency and urgency - leakage Burning and numbness of lower legs through the day. 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 Done for - very fatigued Spasms worse in legs, painful when having repeated spasms. When when trying to wind down in the evening - shaking in hands with fine motor. R>L - baclofen is helpful at bedtime for spasms When fatigued, word recall slower and speech different over the last couple months SUBJECTIVE & REVIEW OF SYSTEMS: Neuro-QoL Functions (higher=better functioning) Flowsheet Row Office Visit from 04/02/2023 in [facility] Most recent reading at 04/01/2023 11:07 AM Infusion Center from 04/02/2023 in [facility] S[facility] Most recent reading at 04/01/2023 11:07 AM Distance Health from 12/25/2022 in [facility] Most recent reading at 12/25/2022 2:47 PM Upper Extremity Domain T Score 36 36 43 Lower Extremity Domain T Score 51 51 46 Cognitive Function Domain T Score 38 38 40 Positive Affect Well Being T Score -- -- -- Ability To Participate In Social Roles T Score 43 43 47 Satisfaction With Social Roles T Score 35 35 45 Neuro-QoL Symptoms (higher=worse symptoms) Flowsheet Row Office Visit from 04/02/2023 in [facility] Most recent reading at 04/01/2023 11:09 AM Infusion Center from 04/02/2023 in [facility] Most recent reading at 04/01/2023 11:09 AM Distance Health from 12/25/2022 in [facility] Most recent reading at 12/25/2022 2:46 PM Sleep Domain T Score 53 53 60 Fatigue Domain T Score 58 58 57 Anxiety Domain T Score 43 43 46 Depression Domain T Score 46 46 44 Stigma Domain T Score 53 53 47 Emotional Behavior Dyscontrol T Score -- -- -- *NeuroQoL is a multi-domain patient-reported quality of life questionnaire. PHQ-9 Flowsheet Row Office Visit from 04/02/2023 in [facility] Most recent reading at 04/01/2023 11:15 AM Infusion Center from 04/02/2023 in [facility] Most recent reading at 04/01/2023 11:15 AM PHQ-9 Score 6 6 *PHQ-9 is a questionnaire for depressive symptoms, with scores 0-4 indicating none, 5-9 mild, 10-14 moderate, 15-19 moderately severe, and 20-27 severe symptoms. PROMIS-10 Flowsheet Row Office Visit from 04/02/2023 in [facility] Most recent reading at 04/01/2023 11:11 AM Infusion Center from 04/02/2023 in [facility] Most recent reading at 04/01/2023 11:11 AM Global Physical Health T Score 42.3 42.3 Global Mental Health T Score 53.3 53.3 0-10 Standard Pain Scale 3 3 *PROMIS-10 is a patient-reported quality of life measure, typically reported as physical and mental domains. Here scores are expressed as percentiles, where the lowest possible score is one, the highest possible score is 99, and 50 is average. Refer to patient-entered data. Mood: PHQ9 responses reviewed and appear below Bladder: See HPI Pain related to today's visit:reviewed on nursing intake documentation PAST HISTORY was reviewed and updated: PAST MEDICAL HISTORY Diagnosis Date Adjustment disorder with depressed mood Dysmenorrhea Encounter for insertion or removal of intrauterine contraceptive device 06/12/11 Unspecified asthma(493.90) SPORTS INDUCED, NO PROBLEMS SINCE AGE 16 PAST SURGICAL HISTORY Procedure Laterality Date DELIVERY ONLY 11/11/2009 DELIVERY ONLY 03/31/11 , low transverse ESOPHAGOGASTRODUODENOSCOPY TRANSORAL DIAGNOSTIC 02/18/2018 EGD HYSTEROSCOPY 06/10/2016 in office to remove IUD INSERTION OF IUD 06/2011, 06/10/2016 LAPS SURG CHOLECYSTECTOMY W/CHOLANGIOGRAPHY 01/25/10 Normal IOC PAST SURGICAL HISTORY OF DIAGNOSTIC LAPAROSCOPY UNSPECIFIED ORAL SURGERY PROCEDURE, BY REPORT wisdom teeth removed MEDICATIONS and ALLERGIES were reviewed and updated. SOCIAL HISTORY was reviewed and updated: Social History Tobacco Use Smoking status: Never Smokeless tobacco: Never Living situation: Living at home without assistance Employment Status / Disability: Full-time OBJECTIVE: VITALS & WELLNESS: BP 111/74 Pulse 69 Ht 160 cm (5' 3) Wt 88.5 kg (195 lb) LMP 09/08/2022 (Exact Date) BMI 34.54 kg/m MSPT Performance Tests 04/02/2023 05/29/2022 Processing Speed Total Number Correct 70 65 Low-contrast letter acuity test-2.5 percent opacity 30 38 Low-contrast letter acuity test-100 percent opacity 60 59 Dominant hand - Right hand MDT Left Hand Time 27.03 27.85 MDT Right Hand Time 22.7 24.19 Walking Speed Test (25 feet) 6.59 2.02 EXAM: General Appearance: well appearing, in no acute distress Mental status evaluation during the interview and examination showed normal level of consciousness, orientation, language, memory, praxis, and higher intellectual function Affect: Normal Extraocular movements: full, without BEN Speech: normal Muscle strength (#/5): Right Left Upper Extremity: Deltoids 5 5 Biceps 5 5 Triceps 5 5 Factorer 5 5 Dorsal interossei 5 5 Lower extremity: Iliopsoas 5 5 Quadriceps 5 5 Hamstrings 5 5 Tibialis anterior 5 5 Gastrocnemius 5 5 Coordination: Upper extremity dexterity and rapid movements: Normal bilaterally Finger-nose: no dysmetria; coordination intact Standing balance: Normal Standard gait: normal. Assistive device: independent RESULTS: Monitoring labs: CBC + Diff Component Value Date WBC 6.26 10/02/2022 HB 13.7 10/02/2022 HCT 41.3 10/02/2022 PLT 299 10/02/2022 ABSLYMPH 1.70 10/02/2022 CMP Component Value Date AST 13 10/02/2022 GLUC 64 (L) 10/02/2022 BUN 15 10/02/2022 CREAT 0.92 10/02/2022 NA 138 10/02/2022 K 3.9 10/02/2022 CHLOR 106 (H) 10/02/2022 ALT 11 10/02/2022 No results found for: JCVAB, JCVIND Discrete MRI Results Component Value Date Brain New T2 Lesions One 02/27/2023 Brain New T2 Lesions One 02/27/2023 Brain Enhancing Lesions Not applicable 02/27/2023 Brain Enhancing Lesions Not applicable 02/27/2023 Cervical Spine New T2 Lesions None 02/27/2023 Cervical Spine New T2 Lesions None 02/27/2023 Cervical spine enhancing lesions Not applicable 02/27/2023 Cervical spine enhancing lesions Not applicable 02/27/2023 ASSESSMENT/PLAN: Isac Peres is a 32 year old female with Multiple Sclerosis. Patient is on Ocrevus for DMT. Reports good tolerance and compliance. Reviewed brain and thoracic spine showed 1 new lesion each compared to 2021, which serves as new baseline for Ocrevus. Will repeat brain and thoracic spine MRI in 6 months. MRI of the brain and/or spinal cord is being ordered to evaluate for efficacy of multiple sclerosis (MS) disease modifying therapy. Disease activity in MS is often not immediately detectable on history or examination, but is sensitively identified on MRI. If identified, new or active MS lesions on MRI may represent suboptimal response to MS therapy, and would change medical management. For bladder, discussed avoiding bladder irritants and timed voiding. Consider urology consult or bladder medication if symptoms persist. Spasticity - encouraged stretching exercises and will modify baclofen to 10 mg at dinner and bedtime. Recommend health psychology for stress management and depression/adjustment to dx. Consider increasing Cymbalta to 90 mg daily. Encouraged routine exercise and discussed wellness. Will modify gabapentin to 300 mg QID for burning paresthesias. Continue Ocrevus Labs q6 months MRI in 6 months Consider increasing Cymbalta to 90 mg Consult health psychology Increase gabapentin to 300 mg QID Increase baclofen to 10 mg at dinner and bedtime Patient Health Education Discussed at Visit: Aerobic exercise, Emotional Health/Wellness, Risks and Common side effects of MS medications, Stress management, and Stretching Follow-up: In 6 months at [place] or Virtual Visit with [facility] or sooner if needed I spent a total of 45 minutes on the date of the service which included preparing to see the patient, [id number] patient care, completing clinical documentation, obtaining and/or reviewing separately obtained history, performing a medically appropriate examination, counseling and educating the patient/family/caregiver, ordering medications, tests, or procedures, and communicating results to the patient/family/caregiver. Lizet Brown PA-C The chart was reviewed for possible participation in the following studies:None documented in this encounter [facility] 04-01-2023 Miscellaneous Notes IRB# [id number]: Virtual versus usual in-office care for multiple sclerosis: A Randomized Trial (VIRTUAL-MS) Primary Tube Room Cashier: Dr. Court Turcios DO ( Pager: [phone]) Cage Clerk: Angelique Mcgarry ( Pager: [phone]) Called patient regarding eligibility for VIRTUAL-MS study. Left voicemail with coordinator contact information for patient to call back if interested in learning about the study. Angelique Mcgarry, Research Coordinator documented in this encounter [facility] 03-18-2023 Miscellaneous Notes IRB# [id number]: Virtual versus usual in-office care for multiple sclerosis: A Randomized Trial (VIRTUAL-MS) Primary Tube Room Cashier: Dr. Court Turcios DO ( Pager: [phone]) Cage Clerk: Angelique Mcgarry ( Pager: [phone]) Called patient regarding eligibility for VIRTUAL-MS study. Left voicemail with coordinator contact information for patient to call back if interested in learning about the study. Angelique Mcgarry, Research Coordinator documented in this encounter [facility] 12-25-2022 History of Present illness Narrative Images from the original note were not included. [facility] MULTIPLE SCLEROSIS FOLLOWUP/ESTABLISHED PATIENT VIRTUAL VISIT PRINCIPAL NEUROLOGIC DIAGNOSIS: multiple sclerosis DISEASE SUMMARY Date of onset: 2019 Date of diagnosis of MS: NA Disease course at onset: Relapsing-Remitting Current disease course: Progressive with relapses Previous disease therapies: NA Current disease therapy: Ocrevus (started 10/02/22) Most recent MRI brain: 04/23/22 Most recent MRI cervical spine: 05/21/22 Most recent MRI thoracic spine: 05/21/22 CSF: NA VZV serology result and date: NA AQP4-IgG: NA MOG-IgG: NA CHIEF COMPLAINT: Follow-up on MS disease modifying therapy INTERVAL HISTORY: Usual treating team: Patricia/Kevin Today's visit is being completed virtually; pt consented. Accompanied by self. Last seen 09/04/22. Currently taking Ocrevus. Tired decreased appetite for a couple days. Mid-October had worst flare so far - lasted about 2 weeks - another 1-2 weeks of mild symptoms - noted lower left leg feeling numb on ortiz. Then increased to whole left leg over the course of a couple days. Knee felt swollen, couldn't bend it right. Then left arm impacts. Muscle spasms in arm leg and back. - brand new symptoms. No underlying infections Lower part of left leg residual numbness Strength feels back to baseline Strength back to baseline Sensory symptoms have improved since starting Cymbalta and gabapentin - burning in feet worse at night - starts around 7: 00 pm and really gets worse around - gabapentin takes at 8:30 pm Tired all the time REVIEW OF SYSTEMS: Mood: PHQ9 responses reviewed and appear below Spasticity:baclofen helps Bladder: no change - denies UTI Bowel: no change Pain:reviewed on nursing intake documentation Fatigue: Severe Sleep: burning dysesthesia, keeps from sleep and does interrupt Vision: denies change Neuro-QoL Functions (higher=better functioning) Flowsheet Row Appointment from 12/25/2022 in [facility] Office Visit from 09/04/2022 in [facility] from 07/10/2022 in [facility] Upper Extremity Domain T Score 43 39 39 Lower Extremity Domain T Score 46 49 56 Cognitive Function Domain T Score 40 40 32 Positive Affect Well Being T Score -- -- -- Ability To Participate In Social Roles T Score 47 46 46 Satisfaction With Social Roles T Score 45 43 45 Neuro-QoL Symptoms (higher=worse symptoms) Flowsheet Row Appointment from 12/25/2022 in [facility] Office Visit from 09/04/2022 in [facility] from 07/10/2022 in [facility] Sleep Domain T Score 60 63 59 Fatigue Domain T Score 57 59 58 Anxiety Domain T Score 46 46 46 Depression Domain T Score 44 46 47 Stigma Domain T Score 47 53 51 Emotional Behavior Dyscontrol T Score -- -- -- PAST HISTORY was reviewed and updated: PAST MEDICAL HISTORY Diagnosis Date Adjustment disorder with depressed mood Dysmenorrhea Encounter for insertion or removal of intrauterine contraceptive device 06/12/11 Unspecified asthma(493.90) SPORTS INDUCED, NO PROBLEMS SINCE AGE 16 PAST SURGICAL HISTORY Procedure Laterality Date DELIVERY ONLY 11/11/2009 DELIVERY ONLY 03/31/11 , low transverse ESOPHAGOGASTRODUODENOSCOPY TRANSORAL DIAGNOSTIC 02/18/2018 EGD HYSTEROSCOPY 06/10/2016 in office to remove IUD INSERTION OF IUD 06/2011, 06/10/2016 LAPS SURG CHOLECYSTECTOMY W/CHOLANGIOGRAPHY 01/25/10 Normal IOC PAST SURGICAL HISTORY OF DIAGNOSTIC LAPAROSCOPY UNSPECIFIED ORAL SURGERY PROCEDURE, BY REPORT wisdom teeth removed MEDICATIONS and ALLERGIES were reviewed and updated. SOCIAL HISTORY was reviewed and updated: Current living situation: At home EXAM: General Appearance: well appearing, in no acute distress Mental status evaluation during the interview and examination showed normal level of consciousness, orientation, language, memory, praxis, and higher intellectual function Affect: Normal Speech: normal RESULTS: Monitoring labs: CBC + Diff Component Value Date WBC 6.26 10/02/2022 HB 13.7 10/02/2022 HCT 41.3 10/02/2022 PLT 299 10/02/2022 ABSLYMPH 1.70 10/02/2022 CMP Component Value Date AST 13 10/02/2022 GLUC 64 (L) 10/02/2022 BUN 15 10/02/2022 CREAT 0.92 10/02/2022 NA 138 10/02/2022 K 3.9 10/02/2022 CHLOR 106 (H) 10/02/2022 ALT 11 10/02/2022 MRI brain: No new brain MRI to review ASSESSMENT: Isac Peers is a 32 year old female with multiple sclerosis. Patient is on Ocrevus for DMT. Reports good tolerance and compliance. Reports symptoms concerning for a relapse in October 2022 which have largely recovered. Do not consider this treatment failure at this time as she just started Ocrevus in September 2022 but reviewed calling the office if new neurological symptoms/suspected relapse in the future. Will obtain updated brain, cervical and thoracic spine MRI WWO contrast in about 3 months or sooner if new symptoms develop. MRI of the brain and/or spinal cord is being ordered to evaluate for efficacy of multiple sclerosis (MS) disease modifying therapy. Disease activity in MS is often not immediately detectable on history or examination, but is sensitively identified on MRI. If identified, new or active MS lesions on MRI may represent suboptimal response to MS therapy, and would change medical management. Will increase gabapentin to 300 mg at dinner and 300 mg at bedtime for burning dysesthesias. PLAN: 1. Continue Ocrevus 2. Labs with infusion 3. Brain, cervical and thoracic spine MRI WWO contrast in 3 months or sooner if needed 4. Increase gabapentin 5. Continue Cymbalta and baclofen 6. Follow-up in 3 months or sooner if needed I spent a total of 25 minutes on the date of the service which included preparing to see the patient, [id number] patient care, completing clinical documentation, obtaining and/or reviewing separately obtained history, counseling and educating the patient/family/caregiver, ordering medications, tests, or procedures, and communicating results to the patient/family/caregiver. Lizet Brown PA-C documented in this encounter [facility] 12-18-2022 Miscellaneous Notes The following approved medication requests have been transmitted electronically. Requested Prescriptions Signed Prescriptions Disp Refills DULoxetine (CYMBALTA) 60 mg capsule 90 capsule 1 Sig: Take 1 capsule by mouth once daily. Authorizing Provider: LIZET BROWN PA-C Source : mychart from patient requesting refill. Delivery : e-script Requested Prescriptions Pending Prescriptions Disp Refills DULoxetine (CYMBALTA) 60 mg capsule 90 capsule 1 Sig: Take 1 capsule by mouth once daily. DX : Patient last seen: 09/04/2022 Next Appointment : 12/25/2022 Amanda Das documented in this encounter [facility] 12-18-2022 Miscellaneous Notes The following approved medication requests have been transmitted electronically. Requested Prescriptions Signed Prescriptions Disp Refills amphetamine-dextroamphetamine XR (ADDERALL XR) 20 mg 24 hr capsule 30 capsule 0 Sig: Take 1 capsule by mouth once daily for 30 days. Authorizing Provider: CHIARA PEDERSEN APRN.CNP PDMP website checked and validated. All prescriptions have been APPROPRIATELY filled. No suspicious activity was identified. 12/18/2022 by Chiara Pedersen APRN.BRANDON Patient phones requesting refills as follows: Requested Prescriptions Pending Prescriptions Disp Refills amphetamine-dextroamphetamine XR (ADDERALL XR) 20 mg 24 hr capsule 30 capsule 0 Sig: Take 1 capsule by mouth once daily for 30 days. EVEARRDO-09/15/22 Labs-10/02/22 NOV-none med filled 11/14/22 Please review and advise. Eva Baig LPN documented in this encounter [facility] 12-16-2022 Miscellaneous Notes The following approved medication requests have been transmitted electronically. Requested Prescriptions Signed Prescriptions Disp Refills topiramate (TOPAMAX) 50 mg tablet 45 tablet 3 Sig: TAKE 1 & 1/2 (ONE & ONE-HALF) TABLETS BY MOUTH ONCE DAILY AT BEDTIME Authorizing Provider: LIZET BROWN PA-C Source : electronic from pharmacy requesting refill. Delivery : e-script Requested Prescriptions Pending Prescriptions Disp Refills topiramate (TOPAMAX) 50 mg tablet [Pharmacy Med Name: Topiramate 50 MG Oral Tablet] 45 tablet 0 Sig: TAKE 1 & 1/2 (ONE & ONE-HALF) TABLETS BY MOUTH ONCE DAILY AT BEDTIME DX : Patient last seen: 09/04/2022 Next Appointment : 12/25/2022 Amanda Das documented in this encounter [facility] 11-17-2022 History of Present illness Narrative This note was created using [employer]. Subjective Isac Peres is a 32 year old female. 32 years old female present with acute symptoms started yesterday +congestion +low grade fever +chills +diarrhea this morning +muscles aches +headache #8/10 Denies chest pain, palpitations, SOB, edema Denies abdominal pain, nausea, vomiting Denies urinary symptoms, urgency, frequency, or burning with urination History of MS with OCREVUS intravenous injections every 6 months The history is provided by the patient. No sign language interpreter was used. Sore Throat This is a new problem. The current episode started yesterday. The problem has been gradually worsening. The maximum temperature recorded prior to her arrival was 100.4 - 100.9 F. The fever has been present for Less than 1 day. The pain is at a severity of 8/10. The pain is moderate. Associated symptoms include congestion, diarrhea and headaches. Pertinent negatives include no abdominal pain, coughing, drooling, ear discharge, ear pain, hoarse voice, plugged ear sensation, neck pain, shortness of breath, stridor, swollen glands, trouble swallowing or vomiting. She has had exposure to strep. She has had no exposure to mono. She has tried nothing for the symptoms. PAST MEDICAL HISTORY Diagnosis Date Adjustment disorder with depressed mood Dysmenorrhea Encounter for insertion or removal of intrauterine contraceptive device 06/12/11 Unspecified asthma(493.90) SPORTS INDUCED, NO PROBLEMS SINCE AGE 16 PAST SURGICAL HISTORY Procedure Laterality Date DELIVERY ONLY 11/11/2009 DELIVERY ONLY 03/31/11 , low transverse ESOPHAGOGASTRODUODENOSCOPY TRANSORAL DIAGNOSTIC 02/18/2018 EGD HYSTEROSCOPY 06/10/2016 in office to remove IUD INSERTION OF IUD 06/2011, 06/10/2016 LAPS SURG CHOLECYSTECTOMY W/CHOLANGIOGRAPHY 01/25/10 Normal IOC PAST SURGICAL HISTORY OF DIAGNOSTIC LAPAROSCOPY UNSPECIFIED ORAL SURGERY PROCEDURE, BY REPORT wisdom teeth removed ALLERGIES Patient has no known allergies. MEDICATIONS ocrelizumab (OCREVUS INTRAVENOUS) Inject intravenously once every 6 months. amphetamine-dextroamphetamine XR (ADDERALL XR) 20 mg 24 hr capsule Take 1 capsule by mouth once daily for 30 days. Do not start before November 14, 2022. Cholecalciferol, Vitamin D3, 125 mcg (5,000 unit) cap Take 1 capsule by mouth once daily. DULoxetine (CYMBALTA) 60 mg capsule Take 1 capsule by mouth once daily. gabapentin (NEURONTIN) 300 mg capsule Take 1 capsule by mouth daily at bedtime for 180 days. topiramate (TOPAMAX) 50 mg tablet Take 1.5 tablets by mouth daily at bedtime. baclofen (LIORESAL) 10 mg tablet Take 1 tablet by mouth daily at bedtime. albuterol HFA (VENTOLIN HFA) 90 mcg/actuation inhaler Inhale 2 Puffs as instructed every 4 hours as needed for wheezing/shortness of breath. amphetamine-dextroamphetamine XR (ADDERALL XR) 20 mg 24 hr capsule Take 1 capsule by mouth once daily for 30 days. amphetamine-dextroamphetamine XR (ADDERALL XR) 20 mg 24 hr capsule Take 1 capsule by mouth once daily for 30 days. Do not start before October 15, 2022. dextroamphetamine-amphetamine (ADDERALL) 5 mg tablet Take 1 tablet by mouth once daily for 30 days. ergocalciferol 50,000 unit capsule (VITAMIN D2, DRISDOL) Take 1 capsule by mouth one time a week. (Patient not taking: Reported on 11/17/2022) amphetamine-dextroamphetamine XR (ADDERALL XR) 20 mg 24 hr capsule Take 1 capsule by mouth once daily for 30 days. FAMILY HISTORY Problem Relation Age of Onset other (endometrial cancer) Mother Lipids Father Arthritis Maternal Grandmother Asthma Maternal Grandmother Cancer Maternal Grandmother SKIN CANCER Heart Maternal Grandmother Rheumatologic disease Maternal Grandmother Fibromyalgia Cancer Maternal Grandfather Multiple Sclerosis Paternal cousin Social History Tobacco Use Smoking status: Never Smokeless tobacco: Never Vaping Use Vaping Use: Never used Substance Use Topics Alcohol use: No Comment: 1/mo Drug use: No Review of Systems Constitutional: Positive for chills and fever. Negative for activity change, appetite change and fatigue. HENT: Positive for congestion, rhinorrhea and sore throat. Negative for dental problem, drooling, ear discharge, ear pain, facial swelling, hearing loss, hoarse voice, mouth sores, postnasal drip, sinus pressure, sinus pain, tinnitus, trouble swallowing and voice change. Eyes: Negative for pain, discharge, redness, itching and visual disturbance. Respiratory: Negative for cough, shortness of breath, wheezing and stridor. Cardiovascular: Negative for chest pain, palpitations and leg swelling. Gastrointestinal: Positive for diarrhea. Negative for abdominal distention, abdominal pain, blood in stool, constipation, nausea and vomiting. Genitourinary: Negative for difficulty urinating, dysuria, frequency and urgency. Musculoskeletal: Positive for myalgias. Negative for arthralgias, back pain, gait problem, joint swelling, neck pain and neck stiffness. Skin: Negative for color change, pallor, rash and wound. Allergic/Immunologic: Negative for environmental allergies, food allergies and immunocompromised state. Neurological: Positive for headaches. Negative for weakness and light-headedness. Psychiatric/Behavioral: Negative for behavioral problems and sleep disturbance. The patient is not nervous/anxious. Objective BP 132/82 Pulse 60 Temp 37.2 C (98.9 F) Resp 16 Wt 89.8 kg (198 lb) LMP 09/08/2022 (Exact Date) SpO2 98% BMI 35.07 kg/m Physical Exam Vitals and nursing note reviewed. Constitutional: General: She is not in acute distress. Appearance: Normal appearance. She is normal weight. She is not ill-appearing, toxic-appearing or diaphoretic. HENT: Head: Normocephalic and atraumatic. Right Ear: Ear canal and external ear normal. There is no impacted cerumen. Tympanic membrane is injected. Left Ear: Tympanic membrane, ear canal and external ear normal. There is no impacted cerumen. Nose: Nose normal. No congestion or rhinorrhea. Mouth/Throat: Mouth: Mucous membranes are moist. Pharynx: Uvula midline. Posterior oropharyngeal erythema present. No pharyngeal swelling, oropharyngeal exudate or uvula swelling. Tonsils: No tonsillar exudate or tonsillar abscesses. 1+ on the right. 1+ on the left. Eyes: General: No scleral icterus. Right eye: No discharge. Left eye: No discharge. Conjunctiva/sclera: Conjunctivae normal. Pupils: Pupils are equal, round, and reactive to light. Neck: Vascular: No carotid bruit. Cardiovascular: Rate and Rhythm: Normal rate and regular rhythm. Pulses: Normal pulses. Heart sounds: No murmur heard. No gallop. Pulmonary: Effort: Pulmonary effort is normal. No respiratory distress. Breath sounds: Normal breath sounds. No stridor. No wheezing, rhonchi or rales. Chest: Chest wall: No tenderness. Abdominal: General: Abdomen is flat. Bowel sounds are normal. There is no distension. Palpations: Abdomen is soft. There is no mass. Tenderness: There is no abdominal tenderness. There is no guarding or rebound. Hernia: No hernia is present. Musculoskeletal: General: No swelling, tenderness, deformity or signs of injury. Normal range of motion. Cervical back: Normal range of motion. No rigidity or tenderness. Right lower leg: No edema. Left lower leg: No edema. Lymphadenopathy: Cervical: No cervical adenopathy. Skin: General: Skin is warm and dry. Capillary Refill: Capillary refill takes less than 2 seconds. Coloration: Skin is not jaundiced or pale. Findings: No bruising, erythema, lesion or rash. Neurological: General: No focal deficit present. Mental Status: She is alert and oriented to person, place, and time. Sensory: No sensory deficit. Motor: No weakness. Coordination: Coordination normal. Gait: Gait normal. Psychiatric: Mood and Affect: Mood normal. Behavior: Behavior normal. Assessment and Plan ASSESSMENT/PLAN: 1. Sore throat - ICD9: 462, ICD10: J02.9 (primary diagnosis) - Alere Strep Test negative, no culture pending - Discussed supportive care treatment with fluids, rest and analgesia. - STREP A MOLECULAR (POC)-negative 2. URI, acute - ICD9: 465.9, ICD10: J06.9 - Discussed viral etiology and rationale for treatment. - Symptomatic treatment with prn analgesia - Supportive care with fluids and rest - follow up with your PCP if no improvement or if symptoms worsens Virginie Christianson Supervising therapist was present and guided the care of the patient for the entire session on this date. All documentation was reviewed and agreed upon. 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 Pt notified via [employer]. Rowan Moore Ma documented in this encounter [facility] 10-09-2022 History of Present illness Narrative Retroactive MS SmartForm Completion -Ralf Houser, Research Coordinator documented in this encounter [facility] 09-17-2022 Miscellaneous Notes Images from the original note were not included. PA Approved an patient picked up rx Paradise Harrison Ma Prior Authorization has been completed online at [employer] for Adderall , will await response. HUNG- [id number] Please keep encounter open until final decision has been received and documented from insurance company. Paradise Harrison MA documented in this encounter [facility] 09-16-2022 Miscellaneous Notes opened in error. Electronic PA completed for amphetamine-dextroamphetamine XR (ADDERALL XR) 20 mg 24 hr capsule documented in this encounter [facility] 09-15-2022 Instructions Chiara Pedersen APRN.BRANDON - 09/15/2022 2:52 PM EST Continue to take Adderall XR 20 mg daily. Add on Adderall 5 mg in the afternoon to help with focus Follow up in 1 month or sooner as needed. May be phone or virtual appt. documented in this encounter [facility] 09-15-2022 History of Present illness Narrative This is a 32 year old female who presents today with: Patient presents with: Follow Up: Medication follow up HISTORY OF PRESENT ILLNESS: Isac Peres is a 32 year old female. Patient presents with: Follow Up: Medication follow up Here in the office for medication check. Taking Adderall XR 20 mg daily for ADHD. Medication has been helpful for concentration and focus but noticed medication is not as effective in the afternoon. Decreased focus and energy in the afternoon. Denies any palpitations or difficulty sleeping. PAST MEDICAL HISTORY: PAST MEDICAL HISTORY Diagnosis Date Adjustment disorder with depressed mood Dysmenorrhea Encounter for insertion or removal of intrauterine contraceptive device 06/12/11 Unspecified asthma(493.90) SPORTS INDUCED, NO PROBLEMS SINCE AGE 16 PAST SURGICAL HISTORY Procedure Laterality Date DELIVERY ONLY 11/11/2009 DELIVERY ONLY 03/31/11 , low transverse ESOPHAGOGASTRODUODENOSCOPY TRANSORAL DIAGNOSTIC 02/18/2018 EGD HYSTEROSCOPY 06/10/2016 in office to remove IUD INSERTION OF IUD 06/2011, 06/10/2016 LAPS SURG CHOLECYSTECTOMY W/CHOLANGIOGRAPHY 01/25/10 Normal IOC PAST SURGICAL HISTORY OF DIAGNOSTIC LAPAROSCOPY UNSPECIFIED ORAL SURGERY PROCEDURE, BY REPORT wisdom teeth removed ALLERGIES Patient has no known allergies. MEDICATIONS Current Outpatient Medications Medication Sig ergocalciferol 50,000 unit capsule (VITAMIN D2, DRISDOL) Take 1 capsule by mouth one time a week. Cholecalciferol, Vitamin D3, 125 mcg (5,000 unit) cap Take 1 capsule by mouth once daily. DULoxetine (CYMBALTA) 30 mg capsule Take 1 capsule by mouth once daily for 7 days. DULoxetine (CYMBALTA) 60 mg capsule Take 1 capsule by mouth once daily. gabapentin (NEURONTIN) 300 mg capsule Take 1 capsule by mouth daily at bedtime for 180 days. amphetamine-dextroamphetamine XR (ADDERALL XR) 20 mg 24 hr capsule Take 1 capsule by mouth once daily for 30 days. topiramate (TOPAMAX) 50 mg tablet TAKE 1 TABLET BY MOUTH ONCE DAILY AT BEDTIME (Patient not taking: Reported on 09/04/2022) topiramate (TOPAMAX) 50 mg tablet Take 1.5 tablets by mouth daily at bedtime. baclofen (LIORESAL) 10 mg tablet Take 1 tablet by mouth daily at bedtime. albuterol HFA (VENTOLIN HFA) 90 mcg/actuation inhaler Inhale 2 Puffs as instructed every 4 hours as needed for wheezing/shortness of breath. No current facility-administered medications for this visit. FAMILY HISTORY Problem Relation Age of Onset other (endometrial cancer) Mother Lipids Father Arthritis Maternal Grandmother Asthma Maternal Grandmother Cancer Maternal Grandmother SKIN CANCER Heart Maternal Grandmother Rheumatologic disease Maternal Grandmother Fibromyalgia Cancer Maternal Grandfather Multiple Sclerosis Paternal cousin Social History Tobacco Use Smoking status: Never Smokeless tobacco: Never Vaping Use Vaping Use: Never used Substance Use Topics Alcohol use: No Comment: 1/mo Drug use: No REVIEW OF SYSTEMS GENERAL: No weight loss, malaise or fevers/chills HEENT: Negative for frequent or significant headaches, No changes in hearing or vision. NECK: Negative for lumps, goiter, pain and significant neck swelling RESPIRATORY: Negative for cough, hemoptysis, wheezing, dyspnea or shortness of breath CARDIOVASCULAR: Negative for chest pain, leg swelling, orthopnea, or palpitations GI: No nausea, vomiting, or diarrhea/constipation. No hematochezia/melena. No heartburn or reflux symptoms. : No history of dysuria, frequency or incontinence MUSCULOSKELETAL: Negative for joint pain or swelling. SKIN: Negative for lesions, rash, and itching ENDOCRINE: Negative for cold or heat intolerance, polyuria, polydipsia and goiter NEURO: No history of headaches, syncope, paralysis, seizures or tremors MOOD: +decrease focus in the afternoon EXAM: BP 122/88 Pulse 89 Resp 16 Wt 88.5 kg (195 lb) LMP 09/08/2022 (Exact Date) SpO2 100% BMI 34.54 kg/m PHYSICAL EXAM: General Appearance: Well appearing, alert, in no acute distress, well-hydrated, well nourished. Skin: Skin color, texture, turgor normal, no suspicious rashes or lesions. Head: Normocephalic, no masses, lesions, tenderness or abnormalities. Eyes: Anicteric sclera.Extraocular movements are intact. Lungs: Lungs clear to auscultation. No wheezing, rhonchi, rales. Heart: RRR without murmur, gallop, or rubs. No ectopy. Extremities: No deformities, edema, skin discoloration, clubbing or cyanosis. Good capillary refill. Peripheral Pulses: Normal, Capillary refill <2secs, strong peripheral pulses, Pulses palpable. Neurologic: Gait normal. Sensation grossly intact. PDMP website checked and validated. All prescriptions have been APPROPRIATELY filled. No suspicious activity was identified. 09/15/2022 by Chiara Pedersen APRN.DIRECTOR DIVERSITY ASSESSMENT/PLAN: 1. Adult ADHD - ICD9: 314.01, ICD10: F90.9 - Refill of Adderall XR 20 mg daily - Add on Adderall 5 mg in the afternoon. - Follow up in 1 month. - DEXTROAMPHETAMINE-AMPHETAMINE ER 20 MG 24HR CAPSULE,EXTEND RELEASE - DEXTROAMPHETAMINE-AMPHETAMINE ER 20 MG 24HR CAPSULE,EXTEND RELEASE - DEXTROAMPHETAMINE-AMPHETAMINE ER 20 MG 24HR CAPSULE,EXTEND RELEASE - DEXTROAMPHETAMINE-AMPHETAMINE 5 MG TABLET Follow up in 1 month or sooner as needed. Discussed treatment plan and patient voices understanding. Patient's questions answered appropriately. Medications and potential side effects were discussed and patient voices understanding. Chiara Pedersen APRN.DIRECTOR DIVERSITY This note was partially generated using [employer] voice recognition system. Note was reviewed for accuracy. There may be minor misspellings or grammar miscues with [employer] voice recognition. documented in this encounter [facility] 08-15-2022 Miscellaneous Notes Spoke with pt and information listed below given. Pt verbalizes understanding. Pt states she will call back later to schedule. Melanie Souza LPN Patient needs routine appt for ADHD since she should be seen for this at least every 4-6 months since it's a controled medication. The following approved medication requests have been transmitted electronically. Requested Prescriptions Signed Prescriptions Disp Refills amphetamine-dextroamphetamine XR (ADDERALL XR) 20 mg 24 hr capsule 30 capsule 0 Sig: Take 1 capsule by mouth once daily for 30 days. Authorizing Provider: JAXON STAPLES MD PDMP website checked and validated. All prescriptions have been APPROPRIATELY filled. No suspicious activity was identified. 08/15/2022 by Jaxon Staples MD Patient has been identified by name and date of : Yes Requested Prescriptions Pending Prescriptions Disp Refills amphetamine-dextroamphetamine XR (ADDERALL XR) 20 mg 24 hr capsule 30 capsule 0 Sig: Take 1 capsule by mouth once daily for 30 days. RX INSTRUCTIONS: Patient aware RX will be sent to pharmacy. No need to notify patient. Jazmine Bajwa MA Everardo: 02/2021 (medication) 08/2022 (acute issue) No appointment scheduled. Patient needs an appointment with provider Last refill; 07/10/2022 30 tablets documented in this encounter [facility] 08-15-2022 History of Present illness Narrative Radiology Service Progress Note PATIENT NAME: Isac Peres DATE OF SERVICE: August 15, 2022 TIME: 8:57 AM PATIENT IDENTITY VERIFICATION COMPLETED USING TWO (2) IDENTIFIERS: Name and Date of confirmed by patient verbally. FALL SCREENING: Has the patient had 2 falls in the last year or 1 fall with injury or currently using an Ambulatory Assistive Device (Walker, Cane, Wheelchair, Crutches, etc.)? No PATIENT GENDER DATA: Female. status: : No status: NO. PATIENT RELEVANT IMPLANT DATA REVIEWED: Not Applicable RADIOLOGY DEPARTMENT: Ultrasound PERIPHERAL IV DATA: Not applicable SIGNED BY: Geno Barber RDMS August 15, 2022 8:57 AM documented in this encounter [facility] 08-13-2022 Miscellaneous Notes The following approved medication requests have been transmitted electronically. Requested Prescriptions Signed Prescriptions Disp Refills topiramate (TOPAMAX) 50 mg tablet 45 tablet 2 Sig: Take 1.5 tablets by mouth daily at bedtime. Authorizing Provider: ARLYN GOMEZ Ordering User: LIZET BROWN PA-C Source : mychart from patient requesting refill. Delivery : e-script Requested Prescriptions Pending Prescriptions Disp Refills topiramate (TOPAMAX) 50 mg tablet 45 tablet 2 Sig: Take 1.5 tablets by mouth daily at bedtime. DX : Patient last seen: 07/10/2022 Next Appointment : 09/04/2022 Amanda Das documented in this encounter [facility] 08-11-2022 Miscellaneous Notes Pharmacy escripts requesting the following refill: Requested Prescriptions Pending Prescriptions Disp Refills topiramate (TOPAMAX) 50 mg tablet [Pharmacy Med Name: Topiramate 50 MG Oral Tablet] 30 tablet 0 Sig: TAKE 1 TABLET BY MOUTH ONCE DAILY AT BEDTIME EVERARDO: 07/10/2022 NOV: 09/04/2022 Please review. Sanjuanita Alcala CMA documented in this encounter [facility] 08-11-2022 Instructions Kelly Chavez APRN.CNP - 08/11/2022 3:01 PM EST Schedule pelvic ultrasound Take ibuprofen for pain Return with worsening symptoms Discussed ER symptoms documented in this encounter [facility] 08-11-2022 History of Present illness Narrative This is a 31 year old female who presents today with: Patient presents with: UTI: Urinary frequency; pain lower grown area on the L side; low grade temp; L flank pain HISTORY OF PRESENT ILLNESS: Isac Peres is a 31 year old female. Patient presents with: UTI: Urinary frequency; pain lower grown area on the L side; low grade temp; L flank pain Pt states left inguinal pain that radiated to the left flank for 4 days. Mild low grade fever. Refers pain actually starts in iliac tuberosity area. No injury/fall. Denies painful urination, urgency, incontinence, discharge or smelly urine. Denies concern for STDs. No hematuria. Denies possibility of . No bloody stools, diarrhea, constipation, nausea, vomiting. No bloating. Been taking tylenol for pain with no relief. Due for next period within a week. Hx of ovarian cysts on the right side, but pain feels different. Recently dx w/ MS. She will be having follow-up soon to discuss medication therapy. Currently not on any immunosuppressant medications. PAST MEDICAL HISTORY: PAST MEDICAL HISTORY Diagnosis Date Adjustment disorder with depressed mood Dysmenorrhea Encounter for insertion or removal of intrauterine contraceptive device 06/12/11 Unspecified asthma(493.90) SPORTS INDUCED, NO PROBLEMS SINCE AGE 16 PAST SURGICAL HISTORY Procedure Laterality Date DELIVERY ONLY 11/11/2009 DELIVERY ONLY 03/31/11 , low transverse ESOPHAGOGASTRODUODENOSCOPY TRANSORAL DIAGNOSTIC 02/18/2018 EGD HYSTEROSCOPY 06/10/2016 in office to remove IUD INSERTION OF IUD 06/2011, 06/10/2016 LAPS SURG CHOLECYSTECTOMY W/CHOLANGIOGRAPHY 01/25/10 Normal IOC PAST SURGICAL HISTORY OF DIAGNOSTIC LAPAROSCOPY UNSPECIFIED ORAL SURGERY PROCEDURE, BY REPORT wisdom teeth removed ALLERGIES Patient has no known allergies. MEDICATIONS Current Outpatient Medications Medication Sig amphetamine-dextroamphetamine XR (ADDERALL XR) 20 mg 24 hr capsule Take 1 capsule by mouth once daily for 30 days. baclofen (LIORESAL) 10 mg tablet Take 1 tablet by mouth daily at bedtime. topiramate (TOPAMAX) 50 mg tablet Take 1.5 tablets by mouth daily at bedtime. albuterol HFA (VENTOLIN HFA) 90 mcg/actuation inhaler Inhale 2 Puffs as instructed every 4 hours as needed for wheezing/shortness of breath. diphenoxylate-atropine (LOMOTIL) 2.5-0.025 mg per tablet Take 1 tablet by mouth four times daily as needed for diarrhea for up to 2 days. cholecalciferol, Vitamin D3, (VITAMIN D3) 1,250 mcg (50,000 unit) cap capsule Take 1 capsule by mouth one time a week for 12 doses. No current facility-administered medications for this visit. FAMILY HISTORY Problem Relation Age of Onset other (endometrial cancer) Mother Lipids Father Arthritis Maternal Grandmother Asthma Maternal Grandmother Cancer Maternal Grandmother SKIN CANCER Heart Maternal Grandmother Rheumatologic disease Maternal Grandmother Fibromyalgia Cancer Maternal Grandfather Multiple Sclerosis Paternal cousin Social History Tobacco Use Smoking status: Never Smokeless tobacco: Never Vaping Use Vaping Use: Never used Substance Use Topics Alcohol use: No Comment: 1/mo Drug use: No EXAM: BP 124/76 Pulse 96 Resp 18 LMP 05/08/2022 (Approximate) SpO2 99% PHYSICAL EXAM: General Appearance: Well appearing, alert, in no acute distress, well-hydrated, well nourished.. Skin: Skin color, texture, turgor normal, no suspicious rashes or lesions. Head: Normocephalic, no masses, lesions, tenderness or abnormalities. Eyes: Anicteric sclera. Extraocular movements are intact. Lungs: Lungs clear to auscultation. No wheezing, rhonchi, rales.. Heart: RRR without murmur, gallop, or rubs. No ectopy. Abdomen: Normal abdominal exam, Negative CVA tenderness, Positive findings: tenderness moderate LLQ. No rebound guarding. Neurologic: Gait normal. ASSESSMENT/PLAN: 1. UTI symptoms - ICD9: 788.99, ICD10: R39.9 (primary diagnosis) Sent urine culture - UA DIP, URINE (POC) - URINE CULTURE 2. Pelvic pain - ICD9: [id number], ICD10: R10.2 Schedule pelvic us to rule out ovarian cyst Take ibuprofen as needed for pain To ER with any severe pain. Notify provider if she develops any GI symptoms. - US FEMALE PELVIS TRANSVAG Discussed treatment plan and patient voices understanding. Patient's questions answered appropriately. Medications and potential side effects were discussed and patient voices understanding. Return to the office as scheduled or as needed for worsening/no improvement. Kelly Chavez APRN.BRANDON The patient indicates understanding of these issues and agrees with the plan. documented in this encounter [facility] 07-10-2022 History of Present illness Narrative [facility] MULTIPLE SCLEROSIS FOLLOWUP/ESTABLISHED PATIENT VIRTUAL VISIT PRINCIPAL NEUROLOGIC DIAGNOSIS: multiple sclerosis vs radiologically isolated syndrome DISEASE SUMMARY Date of onset: 2019 Date of diagnosis of MS: NA Disease course at onset: Relapsing-Remitting Current disease course: Progressive with relapses Previous disease therapies: NA Current disease therapy: NA Most recent MRI brain: 04/23/22 Most recent MRI cervical spine: 05/21/22 Most recent MRI thoracic spine: 05/21/22 CSF: NA VZV serology result and date: NA AQP4-IgG: NA MOG-IgG: NA CHIEF COMPLAINT: Follow-up for monitoring off MS modifying therapy and Review diagnostic testing results and discuss implications INTERVAL HISTORY: Usual treating team: Justin Accompanied by . Last seen 05/29/22. Not on DMT. Since her last visit she reports overall feeling stable. Issues with current MS therapy: Not currently on disease modifying therapy. Today's visit is being completed virtually over Zoom. Patient consented to proceed with virtual visit. Current symptoms - Forgetfulness, word finding difficulty - burning on feet and hands REVIEW OF SYSTEMS:per HPI PAST HISTORY was reviewed and updated: PAST MEDICAL HISTORY Diagnosis Date Adjustment disorder with depressed mood Dysmenorrhea Encounter for insertion or removal of intrauterine contraceptive device 06/12/11 Unspecified asthma(493.90) SPORTS INDUCED, NO PROBLEMS SINCE AGE 16 PAST SURGICAL HISTORY Procedure Laterality Date DELIVERY ONLY 11/11/2009 DELIVERY ONLY 03/31/11 , low transverse ESOPHAGOGASTRODUODENOSCOPY TRANSORAL DIAGNOSTIC 02/18/2018 EGD HYSTEROSCOPY 06/10/2016 in office to remove IUD INSERTION OF IUD 06/2011, 06/10/2016 LAPS SURG CHOLECYSTECTOMY W/CHOLANGIOGRAPHY 01/25/10 Normal IOC PAST SURGICAL HISTORY OF DIAGNOSTIC LAPAROSCOPY UNSPECIFIED ORAL SURGERY PROCEDURE, BY REPORT wisdom teeth removed MEDICATIONS and ALLERGIES were reviewed and updated. 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 EXAM: General Appearance: well appearing, in no acute distress Mental status evaluation during the interview and examination showed normal level of consciousness, orientation, language, memory, praxis, and higher intellectual function Affect: Normal Speech: normal RESULTS: Monitoring labs: CBC + Diff Component Value Date WBC 8.55 01/31/2022 HB 13.3 01/31/2022 HCT 39.5 01/31/2022 PLT 313 01/31/2022 ABSLYMPH 3.22 01/31/2022 Vitamin D Component Value Date VITD25 19.6 (L) 01/31/2022 CMP Component Value Date AST 21 01/31/2022 GLUC 87 01/31/2022 BUN 13 01/31/2022 CREAT 0.96 01/31/2022 NA 139 01/31/2022 K 4.1 01/31/2022 CHLOR 100 01/31/2022 ALT 21 01/31/2022 No results found for: JCVAB, JCVIND ASSESSMENT/PLAN: Isac Peres is a 31 year old with 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 We reviewed the cervicomedullary junction lesion and discussed participation in CELLO. Attempted to call research number without response; sent secure email to perinatal coordinator. Messaged neuroradiologist to clarify cervicothoracic vs cervicomedullary in the MRI report. Will determine next steps after determining her study eligibility. Ordered pre-testing labs. Follow-up: In 1 month at [facility] I spent a total of 53 minutes on the date of the service which included preparing to see the patient, [id number] patient care, completing clinical documentation, obtaining and/or reviewing separately obtained history, counseling and educating the patient/family/caregiver, ordering medications, tests, or procedures, communicating with other HCPs (not separately reported), independently interpreting results (not separately reported), communicating results to the patient/family/caregiver, and care coordination (not separately reported). Arlyn Gomez MD, PhD Associate Staff Neurologist [facility] Multiple Sclerosis documented in this encounter [facility] 07-10-2022 Miscellaneous Notes The following approved medication requests have been transmitted electronically. Requested Prescriptions Signed Prescriptions Disp Refills baclofen (LIORESAL) 10 mg tablet 30 tablet 5 Sig: Take 1 tablet by mouth daily at bedtime. Authorizing Provider: LIZET BROWN PA-C Source : mychart from patient requesting refill. Delivery : e-script Requested Prescriptions Pending Prescriptions Disp Refills baclofen (LIORESAL) 10 mg tablet 30 tablet 5 Sig: Take 1 tablet by mouth daily at bedtime. DX : Patient last seen: 05/29/2022 Next Appointment : 07/10/2022 Amanda Das documented in this encounter [facility] 07-10-2022 Miscellaneous Notes OK to refill as ordered Annie Justin MD Patient phones requesting refills as follows: Requested Prescriptions Pending Prescriptions Disp Refills amphetamine-dextroamphetamine XR (ADDERALL XR) 20 mg 24 hr capsule 30 capsule 0 Sig: Take 1 capsule by mouth once daily for 30 days. EVERARDO-03/31/22 Labs-01/31/22 NOV-none med filled 05/26/22 Please review and advise. Eva Baig LPN documented in this encounter [facility] 05-29-2022 Instructions Arlyn Gomez MD, PhD - 05/29/2022 5:30 PM EDT - Stop Flexeril; take baclofen 5 mg at bedtime for 1 week and then 10 mg at bedtime. - Repeat MRI cervical spine - Virtual followup after MRI documented in this encounter [facility] 05-29-2022 History of Present illness Narrative Images from the original note were not included. [facility] NEW PATIENT EVALUATION/CONSULTATION Referral source: Kaylee Huerta [address] [facility] [id number] Also followed by: Patient Care Team: Annie Justin MD as PCP - General (Family Practice) PRINCIPAL NEUROLOGIC DIAGNOSIS: multiple sclerosis DISEASE SUMMARY Date of onset: 2019 Date of diagnosis of MS: NA Disease course at onset: Relapsing-Remitting Current disease course: Progressive with relapses Previous disease therapies: NA Current disease therapy: NA Most recent MRI brain: 04/23/22 Most recent MRI cervical spine: 05/21/22 Most recent MRI thoracic spine: 05/21/22 CSF: NA VZV serology result and date: NA AQP4-IgG: NA MOG-IgG: NA HISTORY OF ILLNESS: An opinion on this 31 year old right handed woman was requested by the referring physician for evaluation regarding possible MS. She was accompanied by her . Previous records (physician notes, laboratory reports, and radiology reports) and imaging studies were reviewed and summarized. My recommendations will be communicated back to the patient's physician(s) via electronic medical record. Follow-up is expected to be with me at the [facility]. Migraines since 2000. More frequent since 2020. Can last 2-3 days; goes away 2-3 days; recurs for 2-3 days. Seen by neurology, Kaylee Huerta NP 05/23/22 and started on TPM 25 mg QHS. Now with 1 mild headache a week. Since 2019 Tired for years. Band-like sensation around chest; worse in the past 4 months (approximately January 2022). More frequent and more painful. Averaging now 1/week lasting for a few hours. Left shoulder numbness Since 2020 Right parietal paresthesias - couldn't tell if it was on fire or super cold. Can go 3 months without any symptoms and then often for a few weeks. Occasional numbness n hands for years lasting for a few hours. Aches/pain in joints; back; shoulders; wrists; ankles. Forgetfulness for years. Word finding difficulty Possible psoriatic arthritis; seeing rheumatology in November 2022. Flexeril helps with pain in general but not helping with band-like sensation. Neuro-Qol Functions (higher = better functioning) 05/06/2022 Upper Extremity Domain T Score 48 05/06/2022 Lower Extremity Domain T Score 52 05/06/2022 Cognitive Function Domain T Score 35 05/06/2022 Ability To Participate In Social Roles T Score 50 05/06/2022 Satisfaction With Social Roles T Score 45 Neuro-Qol Symptoms (higher = worse symptoms) 05/06/2022 Sleep Domain T Score 74 05/06/2022 Fatigue Domain T Score 59 05/06/2022 Anxiety Domain T Score 46 05/06/2022 Depression Domain T Score 47 05/06/2022 Stigma Domain T Score 53 *NeuroQoL is a multi-domain patient-reported quality of life questionnaire. PHQ-9 Flowsheet Row Distance [facility] from 05/23/2022 in Neurology Most recent reading at 05/23/2022 12:39 PM Appointment from 05/29/2022 in [facility] Most recent reading at 05/06/2022 8:30 PM PHQ-9 Score 8 15 *PHQ-9 is a questionnaire for depressive symptoms, with scores 0-4 indicating none, 5-9 mild, 10-14 moderate, 15-19 moderately severe, and 20-27 severe symptoms. PROMIS-10 Flowsheet Row Distance [facility] from 03/31/2022 in Family Medicine [place] Global Physical Health T Score 47.7 Global Mental Health T Score 50.8 0-10 Standard Pain Scale 4 *PROMIS-10 is a patient-reported quality of life measure, typically reported as physical and mental domains. Here scores are expressed as percentiles, where the lowest possible score is one, the highest possible score is 99, and 50 is average. PAST HISTORY: PAST MEDICAL HISTORY Diagnosis Date Adjustment disorder with depressed mood Dysmenorrhea Encounter for insertion or removal of intrauterine contraceptive device 06/12/11 Unspecified asthma(493.90) SPORTS INDUCED, NO PROBLEMS SINCE AGE 16 PAST SURGICAL HISTORY Procedure Laterality Date DELIVERY ONLY 11/11/2009 DELIVERY ONLY 03/31/11 , low transverse ESOPHAGOGASTRODUODENOSCOPY TRANSORAL DIAGNOSTIC 02/18/2018 EGD HYSTEROSCOPY 06/10/2016 in office to remove IUD INSERTION OF IUD 06/2011, 06/10/2016 LAPS SURG CHOLECYSTECTOMY W/CHOLANGIOGRAPHY 01/25/10 Normal IOC PAST SURGICAL HISTORY OF DIAGNOSTIC LAPAROSCOPY UNSPECIFIED ORAL SURGERY PROCEDURE, BY REPORT wisdom teeth removed Transfusions: None Current Outpatient Medications Medication Sig amphetamine-dextroamphetamine XR (ADDERALL XR) 20 mg 24 hr capsule Take 1 capsule by mouth once daily for 30 days. topiramate (TOPAMAX) 50 mg tablet Take 1 tablet by mouth daily at bedtime. diphenoxylate-atropine (LOMOTIL) 2.5-0.025 mg per tablet Take 1 tablet by mouth four times daily as needed for diarrhea for up to 2 days. cyclobenzaprine (FLEXERIL) 10 mg tablet TAKE 1/2 TO 1 (ONE-HALF TO ONE) TABLET BY MOUTH TWICE DAILY NEEDED rizatriptan (MAXALT-MANAGED [employer]ANT) 5 mg disintegrating tablet Take 1 tablet by mouth as needed (at onset of headache. May repeat after 2 hours.). Do not exceed 30 mg per day. diclofenac, EC, (VOLTAREN) 75 mg EC tablet Take 1 tablet by mouth twice daily as needed (for headache.). Not to be taken more than three days per week. cholecalciferol, Vitamin D3, (VITAMIN D3) 1,250 mcg (50,000 unit) cap capsule Take 1 capsule by mouth one time a week for 12 doses. albuterol HFA (VENTOLIN HFA) 90 mcg/actuation inhaler Inhale 2 Puffs as instructed every 4 hours as needed for wheezing/shortness of breath. No current facility-administered medications for this visit. ALLERGIES No Known Allergies Social History Tobacco Use Smoking status: Never Smokeless tobacco: Never Marital Status: FAMILY HISTORY Problem Relation Age of Onset other (endometrial cancer) Mother Lipids Father Arthritis Maternal Grandmother Asthma Maternal Grandmother Cancer Maternal Grandmother SKIN CANCER Heart Maternal Grandmother Rheumatologic disease Maternal Grandmother Fibromyalgia Cancer Maternal Grandfather REVIEW OF SYSTEMS: Comprehensive review of systems otherwise was negative, including constitutional, head and neck, cardiovascular, pulmonary, gastrointestinal, endocrine, urologic, reproductive, rheumatic, hematologic, immunologic, dermatologic, and psychiatric. PHYSICAL EXAM: LMP 03/19/2022 (Approximate) Hair, skin, nails, and joints were normal. Neck was supple without Lhermitte's phenomenon. There was no peripheral edema. She was alert and oriented to person, place, and time with normal language, attention and concentration, recent and remote memory, praxis, and intellectual function. Affect was normal. She did not appear depressed. Visual perry were full to confrontation. Pupils were 3 mm and briskly reactive OU with hippus; no relative afferent pupillary defect. Funduscopic examination was normal without disc edema, erythema, or atrophy. Ocular ductions were full without nystagmus or ataxia. Facial sensation was normal. Muscles of mastication and facial expression moved normally. Hearing was intact to finger rub bilaterally. Palatal movements were normal. Sternocleidomastoid and trapezius power were normal. Tongue movements were normal. There was no dysarthria. Motor Examination: There was no pronator drift or fixation. Right Upper Extremity: Left Upper Extremity: Deltoid 5/5 Deltoid 5/5 Biceps 5/5 Biceps 5/5 Triceps 5/5 Triceps 5/5 Wrist extensors 5/5 Wrist extensors 5/5 Wrist flexors 5/5 Wrist flexors 5/5 Dorsal interossei 5/5 Dorsal interossei 5/5 Abductor pollicis 5/5 Abductor pollicis 5/5 Tone (Veronica scale) 0 Tone (Veronica scale) 0 Right Lower Extremity: Left Lower Extremity: Hip flexors 5/5 Hip flexors 5/5 Hip extensors 5/5 Hip extensors 5/5 Knee flexors 5/5 Knee flexors 5/5 Knee extensors 5/5 Knee extensors 5/5 Dorsiflexors 5/5 Dorsiflexors 5/5 Plantarflexors 5/5 Plantarflexors 5/5 Toe extensors 5/5 Toe extensors 5/5 Toe flexors 5/5 Toe flexors 5/5 Tone (Veronica scale) 0 Tone (Veronica scale) 0 Reflexes: brachioradialis ++ brachioradialis ++ biceps ++ biceps ++ triceps ++ triceps ++ patellar ++ patellar ++ Achilles ++ Achilles ++ Gracia's sign absent Gracia's sign absent clonus absent clonus absent plantar response mute plantar response mute Coordination testing in the arms and legs was performed including [id number], rapid-alternating, and fine movements. Rapid movements were smooth with good benson and there was no dysmetria or ataxia. No signs of cerebellar dysfunction. Sensory examination: Temperature, vibration, and proprioception intact. Romberg's test was normal. Pinprick - decreased left shoulder, and areas of the upper back. Gait was normal, including heel, toe, and tandem walking. REVIEW OF OUTSIDE RECORDS: per HPI REVIEW OF IMAGING STUDIES: 04/23/22 MRI brain - Patchy nonspecific foci of white matter signal abnormality in the right lopez radiata and temporal periventricular white matter, which may reflect sequelae of remote insult, or alternatively areas of prior demyelination in the appropriate clinical context. MRI C-T spine w/w/o - 1. Abnormal spinal cord signal intensity at the cervicothoracic junction bilaterally and possibly on the right at C4/C5. The findings are in keeping with the known multiple sclerosis. There is no abnormal enhancement. 2. Mildly bulging discs as noted above. There is no spinal stenosis nor cord compression at any level. 3. Limited study due to patient motion. I personally reviewed the following images: MRI brain 04/23/22 - right periventricular lesions with an ovoid appearance oriented perpendicular to the lateral ventricles. 05/21/22 MRI C-spine - bilateral cervicomedullary lesions on axial (series 8 image 1/31) but no C1 ventral lesion (series 8 image 4/). Possible right C4/C5 lesion (series 8 image 18/31). Sagittal STIR motion degraded and sagittal T2 normal. 05/29/22 OCT normal ASSESSMENT: 31 year old woman with possible MS. Her brain lesions are typical, history compatible, but her cervical cord is poor quality. PLAN: - repeat MRI C-spine 3T w/o contrast due to motion artifact on 05/21/22 - virtual followup afterwards; will discuss further workup depending on results I spent a total of 106 minutes on the date of the service which included preparing to see the patient, [id number] patient care, completing clinical documentation, obtaining and/or reviewing separately obtained history, performing a medically appropriate examination, counseling and educating the patient/family/caregiver, ordering medications, tests, or procedures, communicating with other HCPs (not separately reported), independently interpreting results (not separately reported), communicating results to the patient/family/caregiver, and care coordination (not separately reported). Arlyn Gomez MD, PhD Associate Staff Neurologist [facility] Multiple Sclerosis documented in this encounter [facility] 05-26-2022 Miscellaneous Notes OK to refill as ordered Annie Justin MD Patient phones requesting refills as follows: Requested Prescriptions Pending Prescriptions Disp Refills amphetamine-dextroamphetamine XR (ADDERALL XR) 20 mg 24 hr capsule 30 capsule 0 Sig: Take 1 capsule by mouth once daily for 30 days. EVERARDO-03/05/22 Labs-01/31/22 NOV-none med filled 04/17/22 Please review and advise. Eva Baig LPN documented in this encounter [facility] 05-23-2022 History of Present illness Narrative Images from the original note were not included. [facility] Neurolog[facility] [place] Follow-up Virtual Visit Follow-up note This visit was conducted via virtual platform. May 23, 2022 HPI: Ms. Peres presents today for a follow-up visit. Per her previous visit on 04/10/22: G43.009 Migraine without aura and without status migrainosus, not intractable (primary encounter diagnosis) R51.9, G89.29 Chronic nonintractable headache, unspecified headache type Comment: Patient presenting today for headache. Headaches began at age 11, however, have increased in frequency and severity in the past two years. She reports two types of headaches with the first occurring throughout her whole head and associated with photophobia/phophobia and nausea. Headaches occur monthly with no associated triggers. Second type of headache is located frontally or present as a stabbing pain parietally and without associated symptoms. Neurological exam unremarkable. She reports possible past imaging completed at onset of migraines at age 11. She has since had follow up with her PCP who started her on Imitrex prn, however, she had SE and has stopped medication. At this time given increase in frequency and severity of headaches as well as uncertainty if past imaging ever completed and cognitive deficits as noted below will proceed with MRI of brain for further evaluation of intracranial etiology of sx. Also given frequency of headaches, discussed option of starting daily preventative medication. She is agreeable and will begin Topamax 25mg QHS. No contraindications. SE reviewed. For migraine will transition from Imitrex to Maxalt given SE with Imitrex. For more minor headaches will begin diclofenac 75mg BID prn (not to be taken more than three days per week and not to be taken with other NSAIDS). Will have her follow up in six weeks to review medication. R41.3 Memory difficulties Comment: Patient also presenting with memory concerns. Memory concerns started roughly two years ago as well; notably around the time that headaches increased in frequency and severity. MOCA completed in office today with score of 28/30. All points missed on delayed recall. Other notable history includes ADHD (currently taking Adderall) and past history of mood disorder. Also reporting difficulty with sleep/insomnia. No s/sx of OLIVIER. Recent TSH, B12, and folate all WNL. Vitamin D low and has been taking supplement. At this time will attempt to treat and improve headaches and sleep concerns with resulting improvement in cognitive deficits. If congnitive concerns persist can consider neurocognitive testing at time of follow up. Note, MRI of brain to completed as above and will also use to evaluate for intracranial etiology of sx. Headaches have been better. Feels that the Topamax has been helping headaches. Over the past month feels like she has had roughly four severe headaches where she had to take additional medication. Otherwise only very mild headaches. Denies vision changes, speech changes with headaches. No change in characteristics. States she does become drowsy with Topamax. Helps her fall asleep. States this has been helpful for sleep. Denies numbness or tingling. She tried the Maxalt one time. Didn't have much relief of headache at that time. Took a second dose and no relief. No SE. She did try taking diclofenac as well. Helped to decrease some pain but did not stop the headache. Feels memory has been pretty good. Not normal but has been better than it had been. Denies blurred vision, double vision, b/b changes, numbness and tingling. Has appt with [facility] next week. Had MRI of cervical spine and thoracic. PAST MEDICAL HISTORY Diagnosis Date Adjustment disorder with depressed mood Dysmenorrhea Encounter for insertion or removal of intrauterine contraceptive device 06/12/11 Unspecified asthma(493.90) SPORTS INDUCED, NO PROBLEMS SINCE AGE 16 PAST SURGICAL HISTORY Procedure Laterality Date DELIVERY ONLY 11/11/2009 DELIVERY ONLY 03/31/11 , low transverse ESOPHAGOGASTRODUODENOSCOPY TRANSORAL DIAGNOSTIC 02/18/2018 EGD HYSTEROSCOPY 06/10/2016 in office to remove IUD INSERTION OF IUD 06/2011, 06/10/2016 LAPS SURG CHOLECYSTECTOMY W/CHOLANGIOGRAPHY 01/25/10 Normal IOC PAST SURGICAL HISTORY OF DIAGNOSTIC LAPAROSCOPY UNSPECIFIED ORAL SURGERY PROCEDURE, BY REPORT wisdom teeth removed Current Outpatient Medications on File Prior to Visit Medication Sig cyclobenzaprine (FLEXERIL) 10 mg tablet TAKE 1/2 TO 1 (ONE-HALF TO ONE) TABLET BY MOUTH TWICE DAILY NEEDED amphetamine-dextroamphetamine XR (ADDERALL XR) 20 mg 24 hr capsule Take 1 capsule by mouth once daily for 30 days. rizatriptan (MAXALT-MANAGED [employer]ANT) 5 mg disintegrating tablet Take 1 tablet by mouth as needed (at onset of headache. May repeat after 2 hours.). Do not exceed 30 mg per day. topiramate (TOPAMAX) 25 mg tablet Take 1 tablet by mouth daily at bedtime. diclofenac, EC, (VOLTAREN) 75 mg EC tablet Take 1 tablet by mouth twice daily as needed (for headache.). Not to be taken more than three days per week. cholecalciferol, Vitamin D3, (VITAMIN D3) 1,250 mcg (50,000 unit) cap capsule Take 1 capsule by mouth one time a week for 12 doses. albuterol HFA (VENTOLIN HFA) 90 mcg/actuation inhaler Inhale 2 Puffs as instructed every 4 hours as needed for wheezing/shortness of breath. No current facility-administered medications on file prior to visit. Social History Tobacco Use Smoking status: Never Smokeless tobacco: Never Vaping Use Vaping Use: Never used Substance Use Topics Alcohol use: No Drug use: No ALLERGIES No Known Allergies Review of Systems: ENT: denies loss of hearing, vertigo Vision: denies blurring vison, double vision/diplopia Cardiopulmonary: denies chest pain, palpitations Respiratory: denies shortness of breath GI: denies recent nausea, vomiting, diarrhea, constipation : denies incontinence Sleep: + issues with sleeping (improved with Topamax) Musculoskeletal: denies weakness, + joint ache/pain Back/spine: denies low back or + cervical pains Neuro: denies tremors, loss of feeling, + dizziness (intermittent upon standing), seizure, blackout, paresthesia, facial paresthesia, facial weakness, difficulty in speech, slurring of words, dysarthria, dysphagia, + memory loss (improved), + headache Physical Exam: Patient is alert and in no distress. Dress is appropriate. Mood is appropriate Breathing appears regular and unstressed Neurologic examination: Limited exam due to virtual platform. Cognitively intact. No deficits. No formal MMSE performed. CN: extraocular movements intact with no nystagmus, face is symmetric with no facial droop, hearing intact bilaterally, shoulder shrug is symmetric. Motor exam shows 5/5 strength symmetric through the upper and lower extremities in all groups tested. Coordination: No dysmetria on finger to nose. No tremors noted. No drift seen. Gait normal in stance and pattern. Labs/studies: MRI Report MRI BRAIN WO IVCON Exam End: 04/23/2022 3:37 PM (Final result) Narrative: * * *Final Report* * * DATE OF EXAM: Apr 23 2022 3:37PM [facility] [id number] - MRI BRAIN WO IVCON / PROCEDURE REASON: multiple diagnoses * * * * Physician Interpretation * * * * EXAMINATION: MRI BRAIN WO IVCON HISTORY: Memory difficulties - Migraine without aura and without status migrainosus, not intractable - Chronic nonintractable headache, unspecified headache type - Headache, persistent/atypical - Headache, chronic, new features or increased frequency TECHNIQUE: MRI brain routine protocol without contrast. M: [id number] COMPARISON: None. RESULT: Acute Change: No evidence of an acute intracranial process. Hemorrhage: No evidence of prior parenchymal hemorrhage on the gradient echo sequence. Mass Lesion/ Mass Effect: No evidence of an intracranial mass, extra-axial fluid collection, or significant localized mass effect. Chronic Change: Patchy nonspecific focus of T2/FLAIR hyperintensity right posterior lopez radiata/periventricular white matter, and somewhat more confluent focus in the right temporal periventricular white matter. Parenchyma: No significant parenchymal volume loss for age. Ventricles: Normal caliber and morphology. Skull Base: Hypothalamic and pituitary region are grossly normal. Craniocervical junction is normal. No significant marrow replacement process. Vasculature: Major intracranial arteries and dural venous sinuses demonstrate typical flow voids, suggesting patency by spin echo criteria. Other: Minimal mucosal thickening in the right maxillary antrum. Clear mastoid air cells. The orbits and extracranial soft tissues are unremarkable. Impression: IMPRESSION: No acute intracranial findings. Patchy nonspecific foci of white matter signal abnormality in the right lopez radiata and temporal periventricular white matter, which may reflect sequelae of remote insult, or alternatively areas of prior demyelination in the appropriate clinical context. Machinist Set Up: FABRICE Transcribe Date/Time: Apr 23 2022 3:42P Dictated by : ANTHONY RHODES MD This examination was interpreted and the report reviewed and electronically signed by: ANTHONY RHODES MD on Apr 23 2022 3:50PM EST Component Latest Ref Rng & Units 01/31/2022 Iron 41 - 186 ug/dL 62 TIBC 232 - 386 ug/dL 282 Transferrin Saturation 15 - 57 % 22 Vitamin D 25 Hydroxy 31.0 - 80.0 ng/mL 19.6 (L) Vitamin B12 232-1,245 pg/mL 903 Folate >4.7 ng/mL 14.0 CRP <0.9 mg/dL <0.3 EBONIE by EIA, Qual Negative Positive (A) WSR 0 - 20 mm/hr 15 Rheumatoid Factor <16 IU/mL <10 TSH 0.270 - 4.200 mIU/L 0.866 Assessment/Plan: G43.009 Migraine without aura and without status migrainosus, not intractable (primary encounter diagnosis) R51.9, G89.29 Chronic nonintractable headache, unspecified headache type Comment: Patient previously presenting for headaches. Headaches present since age 11, however, over the past two years had increased in severity and frequency. She reports two types of headaches with the first occurring throughout her whole head and associated with photophobia/phophobia and nausea. Headaches occur monthly with no associated triggers. Second type of headache is located frontally or present as a stabbing pain parietally and without associated symptoms. No change in characteristics since time of previous appointment. MRI of brain completed in interim with finding of white matter abnormality concerning for possible prior demyelination or remote insult. Consult previously placed to [facility] and appt scheduled for this upcoming week. For treatment of headaches she was started on Topamax with titration up to 50mg daily. She reports improvement in headaches since starting medication. Discussed options today and she is agreeable to increase to 75mg QHS. Can continue prn Maxalt and diclofenac. If no relief with use of abortive medications she will notify the office an alternative triptan can be considered. R41.3 Memory difficulties Comment: Previous memory concerns improved upon time of appointment today. Memory concerns started roughly two years ago; around the time that headaches increased in frequency and severity. Previous MOCA with score of 28/30. MOCA deferred today due to virtual visit. Other notable history includes ADHD (currently taking Adderall) and past history of mood disorder. Also reporting difficulty with sleep/insomnia which has improved with use of Topamax as she does experience some drowsiness with the medication. As preivously noted, concern that headaches and poor quality sleep contributing to cognitive deficits. Note, MRI of brain completed as noted above and will be following with [facility]. Kaylee Huerta APRN.CNP I spent a total of 25 minutes on the date of the service which included preparing to see the patient, [id number] patient care, completing clinical documentation, obtaining and/or reviewing separately obtained history, performing a medically appropriate examination, counseling and educating the patient/family/caregiver, and ordering medications, tests, or procedures. documented in this encounter [facility] 05-21-2022 History of Present illness Narrative Radiology Service Progress Note DATE OF SERVICE: May 21, 2022 TIME: 4:43 PM PATIENT IDENTITY VERIFICATION COMPLETED USING TWO (2) STANDARD IDENTIFIERS: Name and Date of confirmed by patient verbally. FALL SCREENING: Has the patient had 2 falls in the last year or 1 fall with injury or currently using an Ambulatory Assistive Device (Walker, Cane, Wheelchair, Crutches, etc.)? No PATIENT GENDER DATA: Female. status: : No status: NO. PATIENT RELEVANT IMPLANT DATA REVIEWED: Yes ALLERGIES: Reviewed and unchanged CONTRAST ALLERGY: NO. EXAM: MRI - CONTRAST TYPE: GROUP II PERIPHERAL IV DATA: Ambulatory: A peripheral IV was started in the Right antecubital site with a Butterfly: 23 gauge. RADIOLOGY DEPARTMENT: MR; Exam(s) Completed: Spine: Cervical spine and Thoracic spine SIGNATURE: RT Khoi(R) PATIENT NAME: Isac Peres DATE: May 21, 2022 TIME: 4:43 PM documented in this encounter [facility] 05-17-2022 History of Present illness Narrative Scan on 05/16/2022 10:41 PM by External Provider: Consultation - Emergency Medicine documented in this encounter [facility] 04-25-2022 Miscellaneous Notes Called and spoke with patient. MRI results reviewed. Will place consult for [facility] for review memory concerns, tingling, GOYAL. Pt agreeable. documented in this encounter [facility] 04-23-2022 History of Present illness Narrative Radiology Service Progress Note PATIENT NAME: Isac Peres DATE OF SERVICE: April 23, 2022 TIME: 3:19 PM PATIENT IDENTITY VERIFICATION COMPLETED USING TWO (2) IDENTIFIERS: Name and Date of confirmed by patient verbally. FALL SCREENING: Has the patient had 2 falls in the last year or 1 fall with injury or currently using an Ambulatory Assistive Device (Walker, Cane, Wheelchair, Crutches, etc.)? No PATIENT GENDER DATA: Female. status: : No status: NO. PATIENT RELEVANT IMPLANT DATA REVIEWED: Yes RADIOLOGY DEPARTMENT: MR; Exam(s) Completed: Head: Routine Brain PERIPHERAL IV DATA: Not applicable SIGNED BY: RT Vitaly(R) April 23, 2022 3:19 PM documented in this encounter [facility] 04-17-2022 Miscellaneous Notes OK to refill as ordered Annie Justin MD Patient phones requesting refills as follows: Pending Prescriptions Disp Refills DEXTROAMPHETAMINE-AMPHETAMINE ER 20 MG 24HR CAPSULE,EXTEND RELEASE 30 capsule 0 Sig: Take 1 capsule by mouth once daily for 30 days. BENJI Class: C-II IDA: No EVERARDO-03/31/22 Labs-01/31/22 NOV-none med filled 03/17/22 ends 04/22/22 Please review and advise. Eva Baig LPN documented in this encounter [facility] 04-17-2022 Miscellaneous Notes OK to refill as ordered Annie Justin MD Patient phones requesting refills as follows: Pending Prescriptions Disp Refills CYCLOBENZAPRINE 10 MG TABLET 60 tablet 0 Sig: TAKE 1/2 TO 1 (ONE-HALF TO ONE) TABLET BY MOUTH TWICE DAILY NEEDED IDA: No EVERARDO-03/31/22 Labs-01/31/22 NOV-none med filled 08/25/21 Please review and advise. Eva Baig LPN documented in this encounter [facility] 04-10-2022 History of Present illness Narrative Images from the original note were not included. [facility] New Patient visit New Patient Consultation April 10, 2022 HPI: Ms. Peres presents today secondary to issues of headaches/memory concerns. She states that she has had headaches since age 11. Over the past year and a half to two years they became more frequent and more severe. Migraines now occurring once per month with more minor headaches in between. Migraines are located throughout her whole head and feel like a pressure. Associated light/sound sensitivity. Associated nausea. No associated vision changes. More minor headaches are located frontally or feel like a sharp pain. No associated symptoms. Migraines once per month. Minor headaches occur at least two days per week. Not at any specific time of day. Caffeine can worsen headaches. No other known triggers. Sometimes can be influenced by weather. With migraines she can have tightness in her neck. With minor headaches no cervical pains. Mom with hx of headaches but not frequent migraines. Grandmother with stroke but otherwise no other neuro hx including tumor or aneurysm. Denies tobacco use. No use of control. No associated with menstrual cycle. Has seen PCP; was prescribed Imitrex. Tried it twice and had SE. [place] like she was asleep and things were moving. Sometimes takes flexeril which can help with tightness in her neck but does not help with headaches. Has never taken daily migraine medication. Also noting memory concerns. States this got worse over the past two years, however, over the past four years has progressed further. States she can forget anything; someone new she meets or someone she has known for years. Sometimes will forget why she got up. Can be in the middle of a sentence and lose her thoughts. Not getting lost when driving. Does not forget medications. Not forgetting ingredients or leaving stove/oven on. Will start something new when she has not finished something else. States her notes slurred speech when she becomes more confused. Recent vitamin D deficiency; taking supplement since January. Will be having repeat levels drawn. Denies tick bites, heavy metal/chemical exposure. Denies family hx of dementia/alzheimers. Denies thyroid disorder. Hx of anxiety/dep when younger. Has not been on medication since delia high. Takes Adderall for ADHD. States she constantly feels exhausted and tired. Reports issues with insomnia. Has tried OTC sleep medications including melatonin. Melatonin can help. Still feels tired in the morning. Does not snore, does not wake up gasping for air. Wakes frequently overnight. Also notes occasionally that every few months she will have a spot that will feel weird. Describes this as a tingling feeling. Happened to her scalp once and once to her leg. Present for a few weeks then resolved. Had imaging of brain at age 11 when migraines first started to occur. Hx of COVID two years ago. Hx of concussion in HS after colliding during soccer game. Denies hx of glaucoma/kidney stone. Alcohol: Socially Tobacco: denies Drug: Denies MOCA 04/10/22 Visuospatial/exec (5-5) (/5) Naming (0-3) (/3) Memory Words, up to 2 trials: Face, Velvet, Shinto, Ruth, Red (no points) 2/5 first try, 5/5 second try Attention forwards: 2 1 8 5 4 (0-1) (10/05) Attention backwards: 7 4 2 (0-1) (10/05) Tap for the A: F B A C M N A A J K L B A F A K D E A A A J A M O F A A B (1 point if 0 or 1 error) (10/05) Serial subtraction by 7: [id number] (3 points for correct 4 or 5; 2 points for 2 or 3 correct; 1 point for 1 correct) [id number] (12/05) Language: repeat: I only know that Jeff is the one to help today (0-1) (10/05) Language: repeat: The cat always hid under the couch when dogs were in the room (0-1) (10/05) Fluency: max words beginning with the letter F (1 point if 11 or more words) (10/05) Abstraction: practice banana-orange=fruit. Then train-bicycle (1) AND watch-ruler (1) total: (2) (2/2) Delayed recall: recall words: face, velvet, presybeterian, ruth, red (0-5) Got red with category clue (3/5) Orientation: date(1), month(1), year(1), day(1), place(1), city(1) max 6 points (6/6) Level of education: add 1 if did not receive more than a HS education +1 Total Score max 30 (28) Hearing impaired (Y or N) N Vision impaired (Y or N) N The average MoCA score for MCI is 22 (range 19-25) and the average MoCA score for Mild AD is 16 (11-21). PAST MEDICAL HISTORY Diagnosis Date Adjustment disorder with depressed mood Dysmenorrhea Encounter for insertion or removal of intrauterine contraceptive device 06/12/11 Unspecified asthma(493.90) SPORTS INDUCED, NO PROBLEMS SINCE AGE 16 PAST SURGICAL HISTORY Procedure Laterality Date DELIVERY ONLY 11/11/2009 DELIVERY ONLY 03/31/11 , low transverse ESOPHAGOGASTRODUODENOSCOPY TRANSORAL DIAGNOSTIC 02/18/2018 EGD HYSTEROSCOPY 06/10/2016 in office to remove IUD INSERTION OF IUD 06/2011, 06/10/2016 LAPS SURG CHOLECYSTECTOMY W/CHOLANGIOGRAPHY 01/25/10 Normal IOC PAST SURGICAL HISTORY OF DIAGNOSTIC LAPAROSCOPY UNSPECIFIED ORAL SURGERY PROCEDURE, BY REPORT wisdom teeth removed Current Outpatient Medications on File Prior to Visit Medication Sig predniSONE (DELTASONE) 10 mg tablet Take 4 tabs daily x 3 days, then 3 tabs x 3 days, 2 tabs x 3 days, then 1 tab x3 days with food. triamcinolone acetonide (KENALOG) 0.1 % cream Apply 1 application to affected area three times daily for 14 days. Apply sparingly to area for rash/itching. amphetamine-dextroamphetamine XR (ADDERALL XR) 20 mg 24 hr capsule Take 1 capsule by mouth once daily for 30 days. cholecalciferol, Vitamin D3, (VITAMIN D3) 1,250 mcg (50,000 unit) cap capsule Take 1 capsule by mouth one time a week for 12 doses. SUMAtriptan (IMITREX) 50 mg tablet Take 1 tablet by mouth as needed for migraine headache (see administration instructions). Take 1 tablet by mouth for migraine headache. May repeat dose in 2 hours. Max is 200 mg in 24 hours. albuterol HFA (VENTOLIN HFA) 90 mcg/actuation inhaler Inhale 2 Puffs as instructed every 4 hours as needed for wheezing/shortness of breath. cyclobenzaprine (FLEXERIL) 10 mg tablet TAKE ONE-HALF TO ONE TABLET BY MOUTH TWICE DAILY NEEDED No current facility-administered medications on file prior to visit. Social History Tobacco Use Smoking status: Never Smoker Smokeless tobacco: Never Used Vaping Use Vaping Use: Never used Substance Use Topics Alcohol use: No Drug use: No ALLERGIES No Known Allergies Review of Systems: Constitutional: denies fever, weight loss, loss of appetite ENT: denies loss of hearing, vertigo Vision: denies blurring vison, double vision/diplopia Cardiopulmonary: denies chest pain, palpitations Respiratory: denies shortness of breath GI: denies recent nausea, vomiting, diarrhea, constipation : denies incontinence Sleep: + issues with sleeping Musculoskeletal: denies weakness, + joint ache/pain Back/spine: denies low back or + cervical pains Neuro: denies tremors, loss of feeling, + dizziness (intermittent upon standing), seizure, blackout, paresthesia, facial paresthesia, facial weakness, difficulty in speech, + slurring of words, dysarthria, dysphagia, + memory loss, + headache Physical Exam: 04/10/22 0800 BP: 108/76 Pulse: 104 Resp: 18 Temp: 36.9 C (98.4 F) SpO2: 98% Weight: 88.2 kg (194 lb 6.4 oz) Patient is alert and in no distress. Dress is appropriate. Mood is appropriate Breathing appears regular and unstressed Neurologic examination: Formal MOCA above. CN: Pupils equal and reactive to light, extraocular movements intact with no nystagmus, face is symmetric with no facial droop, facial sensation intact bilaterally to light touch. V1-3, hearing intact bilaterally, symmetric evaluation of the soft palate, tongue is midline with no deviation, shoulder shrug is symmetric. Motor exam shows 5/5 strength symmetric through the upper and lower extremities in all groups tested. Sensory intact to light touch in all extremities. Vibratory sensation is intact and symmetric all extremities. Deep tendon reflexes are symmetric at the biceps, brachioradialis, triceps, patella, and achilles bilaterally. Negative Gracia's bilaterally. Coordination: No dysmetria on finger to nose. No tremors noted. No drift seen. Gait normal in stance and pattern. Labs/studies: Component Latest Ref Rng & Units 01/31/2022 Iron 41 - 186 ug/dL 62 TIBC 232 - 386 ug/dL 282 Transferrin Saturation 15 - 57 % 22 Vitamin D 25 Hydroxy 31.0 - 80.0 ng/mL 19.6 (L) Vitamin B12 232-1,245 pg/mL 903 Folate >4.7 ng/mL 14.0 CRP <0.9 mg/dL <0.3 EBONIE by EIA, Qual Negative Positive (A) WSR 0 - 20 mm/hr 15 Rheumatoid Factor <16 IU/mL <10 TSH 0.270 - 4.200 mIU/L 0.866 Assessment/Plan: G43.009 Migraine without aura and without status migrainosus, not intractable (primary encounter diagnosis) R51.9, G89.29 Chronic nonintractable headache, unspecified headache type Comment: Patient presenting today for headache. Headaches began at age 11, however, have increased in frequency and severity in the past two years. She reports two types of headaches with the first occurring throughout her whole head and associated with photophobia/phophobia and nausea. Headaches occur monthly with no associated triggers. Second type of headache is located frontally or present as a stabbing pain parietally and without associated symptoms. Neurological exam unremarkable. She reports possible past imaging completed at onset of migraines at age 11. She has since had follow up with her PCP who started her on Imitrex prn, however, she had SE and has stopped medication. At this time given increase in frequency and severity of headaches as well as uncertainty if past imaging ever completed and cognitive deficits as noted below will proceed with MRI of brain for further evaluation of intracranial etiology of sx. Also given frequency of headaches, discussed option of starting daily preventative medication. She is agreeable and will begin Topamax 25mg QHS. No contraindications. SE reviewed. For migraine will transition from Imitrex to Maxalt given SE with Imitrex. For more minor headaches will begin diclofenac 75mg BID prn (not to be taken more than three days per week and not to be taken with other NSAIDS). Will have her follow up in six weeks to review medication. R41.3 Memory difficulties Comment: Patient also presenting with memory concerns. Memory concerns started roughly two years ago as well; notably around the time that headaches increased in frequency and severity. MOCA completed in office today with score of 28/30. All points missed on delayed recall. Other notable history includes ADHD (currently taking Adderall) and past history of mood disorder. Also reporting difficulty with sleep/insomnia. No s/sx of OLIVIER. Recent TSH, B12, and folate all WNL. Vitamin D low and has been taking supplement. At this time will attempt to treat and improve headaches and sleep concerns with resulting improvement in cognitive deficits. If congnitive concerns persist can consider neurocognitive testing at time of follow up. Note, MRI of brain to completed as above and will also use to evaluate for intracranial etiology of sx. Office Visit on 04/10/22 MRI BRAIN WO IVCON CONSULT TO NEUROLOGY Kaylee Huerta APRN.DIRECTOR DIVERSITY I spent a total of 60 minutes on the date of the service which included preparing to see the patient, [id number] patient care, completing clinical documentation, obtaining and/or reviewing separately obtained history, performing a medically appropriate examination, counseling and educating the patient/family/caregiver and ordering medications, tests, or procedures. documented in this encounter [facility] 03-31-2022 History of Present illness Narrative Chief Complaint Patient presents with: Rash This Team Access Model encounter involved medical decision making outside of a scheduled office visit. Patient was offered a virtual/telemedicine appointment in lieu of an office visit due to recommendations to reduce patient exposure to COVID-19. Video was used for evaluation of this patient. Patient agrees to the visit: Yes Patient Location: [facility] Isac Peres is a 31 year old female who is contacted today for a virtual visit This is an established patient of Dr. Annie Justin MD Reports: Concerns for rash from poison manda. Came in contact with posion manda in her yard about 13 days ago. Has been self treating at home. Noticed more red and itchy spots are spreading. Bilateral legs and arms. No difficulty breathing. Past medical history, appointments, medications, allergies reviewed 03/31/2022 Previous Medical History PAST MEDICAL HISTORY Diagnosis Date Adjustment disorder with depressed mood Dysmenorrhea Encounter for insertion or removal of intrauterine contraceptive device 06/12/11 Unspecified asthma(493.90) SPORTS INDUCED, NO PROBLEMS SINCE AGE 16 Previous Surgical History PAST SURGICAL HISTORY Procedure Laterality Date DELIVERY ONLY 11/11/2009 DELIVERY ONLY 03/31/11 , low transverse ESOPHAGOGASTRODUODENOSCOPY TRANSORAL DIAGNOSTIC 02/18/2018 EGD HYSTEROSCOPY 06/10/2016 in office to remove IUD INSERTION OF IUD 06/2011, 06/10/2016 LAPS SURG CHOLECYSTECTOMY W/CHOLANGIOGRAPHY 01/25/10 Normal IOC PAST SURGICAL HISTORY OF DIAGNOSTIC LAPAROSCOPY UNSPECIFIED ORAL SURGERY PROCEDURE, BY REPORT wisdom teeth removed Family History FAMILY HISTORY Problem Relation Age of Onset other (endometrial cancer) Mother Lipids Father Arthritis Maternal Grandmother Asthma Maternal Grandmother Cancer Maternal Grandmother SKIN CANCER Heart Maternal Grandmother Rheumatologic disease Maternal Grandmother Fibromyalgia Cancer Maternal Grandfather Patient Allergies ALLERGIES No Known Allergies Current Medications Current Outpatient Medications on File Prior to Visit Medication Sig amphetamine-dextroamphetamine XR (ADDERALL XR) 20 mg 24 hr capsule Take 1 capsule by mouth once daily for 30 days. cholecalciferol, Vitamin D3, (VITAMIN D3) 1,250 mcg (50,000 unit) cap capsule Take 1 capsule by mouth one time a week for 12 doses. SUMAtriptan (IMITREX) 50 mg tablet Take 1 tablet by mouth as needed for migraine headache (see administration instructions). Take 1 tablet by mouth for migraine headache. May repeat dose in 2 hours. Max is 200 mg in 24 hours. albuterol HFA (VENTOLIN HFA) 90 mcg/actuation inhaler Inhale 2 Puffs as instructed every 4 hours as needed for wheezing/shortness of breath. cyclobenzaprine (FLEXERIL) 10 mg tablet TAKE ONE-HALF TO ONE TABLET BY MOUTH TWICE DAILY NEEDED No current facility-administered medications on file prior to visit. Social History Social History Tobacco Use Smoking status: Never Smoker Smokeless tobacco: Never Used Vaping Use Vaping Use: Never used Substance Use Topics Alcohol use: No Drug use: No Review of Symptoms GENERAL: No malaise or fatigue. No fevers. HEENT: Negative for headaches No eye discharge or redness No earaches No sore throat Nose POS/NEG for congestion and nasal discharge NECK: Negative for pain or swelling. No lumps RESPIRATORY: No wheezing, SOB, Difficulty breathing. No cough CARDIOVASCULAR: Negative for chest pain GI: No nausea, vomiting, or diarrhea MUSCULOSKELETAL: Negative for bodyaches SKIN: + Rash Neuro: No lightheadedness or dizziness EXAM: LMP 02/23/2022 Limited exam as visit was completed over the virtual platform. Virtual visit completed using video, limited exam completed. Patient sounds or appears ill: No General Appearance: Well appearing, alert, in no acute distress, well-hydrated, well nourished. Skin: Skin color normal/ unable to visualize rash due quality of video stream Head: Normocephalic. No facial swelling or redness. EENT: Eyes nonreddened. No discharge. External ears nonreddened and no swelling. Neck: No mass or lesions. No swelling. FROM Patient is not able to speak in complete sentences: N/A Patient has labored breathing: No. Patient is audibly coughing: No Psych: Attitude - cooperative, easily engaged in conversation Affect - Euthymic, normal mood Mental status: Alert. Speech is clear and fluent with good repetition, comprehension Appearance - Normal hygiene and grooming appropriate Coordination: No abnormal or extraneous movements. Gait/Stance: Posture is normal. Health Maintenance List COVID-19 VACCINE(1) Never done HEPATITIS C SCREENING Never done DEPRESSION SCREENING due on 01/21/2022 DTAP,TDAP,TD(2 - Td or Tdap) due on 02/02/2022 INFLUENZA(Season Ended) due on 06/05/2022 PAP TESTING due on 12/22/2023 HPV TESTING due on 12/21/2025 HIV SCREENING Completed Data reviewed Last 5 Encounter BP Readings: Date: BP: 01/29/2022 118/72 12/03/2021 118/70 11/25/2021 122/70 08/13/2021 114/70 02/25/2021 110/68 BMI Readings from Last 5 Encounters: 03/05/22 : (P) 34.01 kg/m 01/29/22 : 34.37 kg/m 12/03/21 : 33.44 kg/m 11/25/21 : 33.13 kg/m 01/10/21 : 36.67 kg/m Last 5 Encounter Wt Readings: Date: Wt: 01/29/2022 88 kg (194 lb) 12/03/2021 85.6 kg (188 lb 12.8 oz) 11/25/2021 84.8 kg (187 lb) 01/10/2021 93.9 kg (207 lb) 12/26/2020 92.6 kg (204 lb 1.6 oz) Medication and allergy list reviewed, reconciled and updated 03/31/2022 ASSESSMENT/PLAN: 1. Dermatitis - ICD9: 692.9, ICD10: L30.9 - Oral Steriod tx -Prednisone taper - Topical steriod tx with Rx for steriod cream/ointment- see orders - discussed skin care of rash - follow up if symptoms persist or worsen. - PREDNISONE 10 MG TABLET - TRIAMCINOLONE ACETONIDE 0.1 % TOPICAL CREAM Follow-up as needed or sooner if symptoms get worse or do not improve. Discussed treatment plan and patient voices understanding. Patient's questions answered appropriately. Medications and potential side effects were discussed and patient voices understanding. Chiara Pedersen APRN.CNP Total appointment time on virtual with patient = 11-20 minutes This note was partially generated using Ripstone voice recognition system. Note was reviewed for accuracy. There may be minor misspellings or grammar miscues with [employer] voice recognition. documented in this encounter [facility] 03-17-2022 Miscellaneous Notes Approved. PDMP website checked and validated. All prescriptions have been APPROPRIATELY filled. No suspicious activity was identified. 03/17/2022 by Lenny Mena APRN.CNP The following approved medication requests have been transmitted electronically. Signed Prescriptions Disp Refills amphetamine-dextroamphetamine XR (ADDERALL XR) 20 mg 24 hr capsule 30 capsule 0 Sig: Take 1 capsule by mouth once daily for 30 days. BENJI Class: C-II IDA: No Authorizing Provider: LENNY MENA APRN.CNP Patient has been identified by name and date of : Yes Patient phones for refill(s): Pending Prescriptions Disp Refills DEXTROAMPHETAMINE-AMPHETAMINE ER 20 MG 24HR CAPSULE,EXTEND RELEASE 30 capsule 0 Sig: Take 1 capsule by mouth once daily for 30 days. BENJI Class: C-II IDA: No Date of last office visit in primary care: 03/05/22 Last 2 Encounter Wt Readings: Date: Wt: 01/29/2022 88 kg (194 lb) 12/03/2021 85.6 kg (188 lb 12.8 oz) Previous labs/tests for medication: Not applicable Please advise. Thank you. Melanie Souza LPN documented in this encounter [facility] 03-05-2022 Miscellaneous Notes Pt notified of results via Biahart. Rowan Moore Ma Can you please call the patient and let her know that I reviewed her x-ray results. X-rays were normal of the knee. I would recommend that she continue anti-inflammatories and ice as needed. If pain is persistent I would recommend considering completing physical therapy. Please let me know if she has any questions. Thank you. Chiara Pedersen APRN.DIRECTOR DIVERSITY documented in this encounter [facility] 03-05-2022 History of Present illness Narrative Radiology Service Progress Note PATIENT NAME: Isac Peres DATE OF SERVICE: March 05, 2022 TIME: 11:28 AM PATIENT IDENTITY VERIFICATION COMPLETED USING TWO (2) IDENTIFIERS: Name and Date of confirmed by patient verbally. FALL SCREENING: Has the patient had 2 falls in the last year or 1 fall with injury or currently using an Ambulatory Assistive Device (Walker, Cane, Wheelchair, Crutches, etc.)? No PATIENT GENDER DATA: Female. status: : No status: NO. PATIENT RELEVANT IMPLANT DATA REVIEWED: Yes RADIOLOGY DEPARTMENT: General X-ray: Exam(s) Completed: Lower Extremity X-Ray(s): Knee, AP / Lat / Tunne / Merchant Right and Wt. Bearing PERIPHERAL IV DATA: Not applicable SIGNED BY: RT Ajay(R) March 05, 2022 11:28 AM documented in this encounter [facility] 03-05-2022 Instructions Chiara Pedersen APRN.BRANDON - 03/05/2022 11:22 AM EDT 1.) Get xray of knee today. 2.) May continue Aleve or ibuprofen as needed for pain. Elevate and ice. 3.) Follow up pending xray results or sooner as needed. R.I.C.E. The general care of your injury includes the following: Resting, Icing, Compressing and Elevating the injured area. Remember this as RICE. REST: Limit the use of the injured body part. ICE: By applying ice to the affected area, swelling and pain can be reduced. Place some ice cubes in a re-sealable (Ziploc) bag and add some water. Put a thin washcloth between the bag and your skin. Apply the ice bag to the area for at least 20 minutes. Do this at least 4 times per day. Using the ice for longer times and more frequently is OK. NEVER APPLY ICE DIRECTLY TO THE SKIN. COMPRESS: Compression means to apply pressure around the injured area such as with a splint, cast or an dawson bandage. Compression decreases swelling and improves comfort. Compression should be tight enough to relieve swelling but not so tight as to decrease circulation. Increasing pain, numbness, tingling, or change in skin color, are all signs of decreased circulation. ELEVATE: Elevate the injured part. For example, elevate your foot by placing it on a chair while sitting, or propping it up on pillows when lying down. documented in this encounter [facility] 03-05-2022 History of Present illness Narrative This is a 31 year old female who presents today with: Patient presents with: Acute Visit: right knee chirinos HISTORY OF PRESENT ILLNESS: sIac Peres is a 31 year old female. Patient presents with: Acute Visit: right knee chirinos Here in the office for right knee pain. This pain has been chronic for some time but noticed increased sharp shooting pain the past 2 weeks. Pain is on the medial aspect of the patella. Difficulty going up and down stairs as well as squatting. The knee makes a crunching noise with certain movements. Had issues with the same knee in high school, played soccer. No difficulty ambulating. Has been using aleve which is mildly helpful. PAST MEDICAL HISTORY: PAST MEDICAL HISTORY Diagnosis Date Adjustment disorder with depressed mood Dysmenorrhea Encounter for insertion or removal of intrauterine contraceptive device 06/12/11 Unspecified asthma(493.90) SPORTS INDUCED, NO PROBLEMS SINCE AGE 16 PAST SURGICAL HISTORY Procedure Laterality Date DELIVERY ONLY 11/11/2009 DELIVERY ONLY 03/31/11 , low transverse ESOPHAGOGASTRODUODENOSCOPY TRANSORAL DIAGNOSTIC 02/18/2018 EGD HYSTEROSCOPY 06/10/2016 in office to remove IUD INSERTION OF IUD 06/2011, 06/10/2016 LAPS SURG CHOLECYSTECTOMY W/CHOLANGIOGRAPHY 01/25/10 Normal IOC PAST SURGICAL HISTORY OF DIAGNOSTIC LAPAROSCOPY UNSPECIFIED ORAL SURGERY PROCEDURE, BY REPORT wisdom teeth removed ALLERGIES Patient has no known allergies. MEDICATIONS Current Outpatient Medications Medication Sig amphetamine-dextroamphetamine XR (ADDERALL XR) 20 mg 24 hr capsule Take 1 capsule by mouth once daily for 30 days. cholecalciferol, Vitamin D3, (VITAMIN D3) 1,250 mcg (50,000 unit) cap capsule Take 1 capsule by mouth one time a week for 12 doses. SUMAtriptan (IMITREX) 50 mg tablet Take 1 tablet by mouth as needed for migraine headache (see administration instructions). Take 1 tablet by mouth for migraine headache. May repeat dose in 2 hours. Max is 200 mg in 24 hours. albuterol HFA (VENTOLIN HFA) 90 mcg/actuation inhaler Inhale 2 Puffs as instructed every 4 hours as needed for wheezing/shortness of breath. cyclobenzaprine (FLEXERIL) 10 mg tablet TAKE ONE-HALF TO ONE TABLET BY MOUTH TWICE DAILY NEEDED No current facility-administered medications for this visit. FAMILY HISTORY Problem Relation Age of Onset other (endometrial cancer) Mother Lipids Father Arthritis Maternal Grandmother Asthma Maternal Grandmother Cancer Maternal Grandmother SKIN CANCER Heart Maternal Grandmother Rheumatologic disease Maternal Grandmother Fibromyalgia Cancer Maternal Grandfather Social History Tobacco Use Smoking status: Never Smoker Smokeless tobacco: Never Used Vaping Use Vaping Use: Never used Substance Use Topics Alcohol use: No Drug use: No REVIEW OF SYSTEMS GENERAL: No weight loss, malaise or fevers/chills HEENT: Negative for frequent or significant headaches, No changes in hearing or vision. NECK: Negative for lumps, goiter, pain and significant neck swelling RESPIRATORY: Negative for cough, hemoptysis, wheezing, dyspnea or shortness of breath CARDIOVASCULAR: Negative for chest pain, leg swelling, orthopnea, or palpitations GI: No nausea, vomiting, or diarrhea/constipation. No hematochezia/melena. No heartburn or reflux symptoms. : No history of dysuria, frequency or incontinence MUSCULOSKELETAL: + Right knee pain SKIN: Negative for lesions, rash, and itching ENDOCRINE: Negative for cold or heat intolerance, polyuria, polydipsia and goiter NEURO: No history of headaches, syncope, paralysis, seizures or tremors MOOD: Negative for depression, anxiety, or suicidal ideation. EXAM: BP (P) 130/86 Pulse (P) 107 Resp (P) 16 Wt (P) 87.1 kg (192 lb) LMP 02/23/2022 SpO2 (P) 98% BMI (P) 34.01 kg/m PHYSICAL EXAM: General Appearance: Well appearing, alert, in no acute distress, well-hydrated, well nourished. Skin: Skin color, texture, turgor normal, no suspicious rashes or lesions. Head: Normocephalic, no masses, lesions, tenderness or abnormalities. Eyes: Anicteric sclera. Extraocular movements are intact. Lungs: Lungs clear to auscultation. No wheezing, rhonchi, rales. Heart: RRR without murmur, gallop, or rubs. No ectopy. Extremities: No deformities, edema, skin discoloration, clubbing or cyanosis. Good capillary refill. Musculoskeletal: Rt knee full ROM, non tender, no swelling or color change noted. Negative Valgus/Varus and Robbin's test. Peripheral Pulses: Normal, Capillary refill <2secs, strong peripheral pulses, Pulses palpable. ASSESSMENT/PLAN: 1. Acute pain of right knee - ICD9: 719.46, ICD10: M25.561 - Get xray of the right knee. - Continue with Rice therapy and NSAIDS. - XR KNEE GENERAL 4V AP BOTH/PA BOTH/LAT/MERC RIGHT Follow up pending test results or sooner as needed. Discussed treatment plan and patient voices understanding. Patient's questions answered appropriately. Medications and potential side effects were discussed and patient voices understanding. Chiara Pedersen APRN.CNP This note was partially generated using [employer] voice recognition system. Note was reviewed for accuracy. There may be minor misspellings or grammar miscues with [employer] voice recognition. documented in this encounter [facility] 02-10-2022 Miscellaneous Notes Approved. [facility] website checked and validated. All prescriptions have been APPROPRIATELY filled. No suspicious activity was identified. 02/10/2022 by Lenny Mena APRN.CNP The following approved medication requests have been transmitted electronically. Signed Prescriptions Disp Refills amphetamine-dextroamphetamine XR (ADDERALL XR) 20 mg 24 hr capsule 30 capsule 0 Sig: Take 1 capsule by mouth once daily for 30 days. BENJI Class: C-II IDA: No Authorizing Provider: LENNY MENA APRN.CNP Patient phones requesting refills as follows: Pending Prescriptions Disp Refills DEXTROAMPHETAMINE-AMPHETAMINE ER 20 MG 24HR CAPSULE,EXTEND RELEASE 30 capsule 0 Sig: Take 1 capsule by mouth once daily for 30 days. BENJI Class: C-II IDA: No [facility]-01/29/22 Labs-01/31/22 NOV-none med filled 01/06/22 ends 02/05/22 Please review and advise. Eva Baig LPN documented in this encounter [facility] 02-05-2022 Miscellaneous Notes Noted. Chiara Pedersen APRN.CNP Call to pt and notified of message below, verbalized understanding. She is scheduled to see Rheum in [place] but is not able to be seen until July. Currently on a cancellation/wait list. Callie George Ma Can you please let the patient know I just saw this was positive. This can be indicator for possible lupus. I would recommend she make an appointment with Rheumatology. She can start the Vitamin D and get labs rechecked in 3 months. Please let me know if she has any additional questions. Thank you. The following approved medication requests have been transmitted electronically. Signed Prescriptions Disp Refills cholecalciferol, Vitamin D3, (VITAMIN D3) 1,250 mcg (50,000 unit) cap capsule 12 capsule 1 Sig: Take 1 capsule by mouth one time a week for 12 doses. Authorizing Provider: CHIARA PEDERSEN APRN.CNP Ashley Tannhof, APRN.CNP Pt called and is notified of providers results and instructions. Pt voices understanding. Pt was asking about the EBONIE test coming back positive. Pt is agreeable to taking the Vit D and would like it sent to [facility] in [place]. Isabelle Mejía RN Can you please call the patient and let her know that I reviewed her lab results. Folate, B12, thyroid, iron, and autoimmune labs were normal. Vitamin D was low, I would like to start her on a once per week supplement and repeat labs in 3 months. Low vitamin D can cause fatigue, bone pain, muscle pain/weakness, and mood changes. If she is agreeable to starting Vitamin D please verify pharmacy. Thank you. Chiara Pedersen APRN.CNP documented in this encounter [facility] 01-07-2022 Miscellaneous Notes Images from the original note were not included. APPROVED upon submission. Naomi Thakkar LPN documented in this encounter [facility] 01-06-2022 Miscellaneous Notes The following approved medication requests have been transmitted electronically. Signed Prescriptions Disp Refills amphetamine-dextroamphetamine XR (ADDERALL XR) 20 mg 24 hr capsule 30 capsule 0 Sig: Take 1 capsule by mouth once daily for 30 days. BENJI Class: C-II IDA: No Authorizing Provider: ANNIE JUSTIN MA OK to refill as ordered Annie Justin MD Patient phones requesting refills as follows: Pending Prescriptions Disp Refills DEXTROAMPHETAMINE-AMPHETAMINE ER 20 MG 24HR CAPSULE,EXTEND RELEASE 30 capsule 0 Sig: Take 1 capsule by mouth once daily for 30 days. BENJI Class: C-II IDA: No [facility]-08/13/21 Labs-12/26/20 NOV-01/29/22 med filled 12/05/21 ends 01/04/22 Please review and advise. Eva Baig LPN documented in this encounter [facility] 11-25-2021 History of Present illness Narrative Radiology Service Progress Note PATIENT NAME: Isac Peres DATE OF SERVICE: November 25, 2021 TIME: 9:49 AM PATIENT IDENTITY VERIFICATION COMPLETED USING TWO (2) IDENTIFIERS: Name and Date of confirmed by patient verbally. FALL SCREENING: Has the patient had 2 falls in the last year or 1 fall with injury or currently using an Ambulatory Assistive Device (Walker, Cane, Wheelchair, Crutches, etc.)? No PATIENT GENDER DATA: Female. status: : No status: NO. PATIENT RELEVANT IMPLANT DATA REVIEWED: Yes RADIOLOGY DEPARTMENT: General X-ray: Exam(s) Completed: Chest X-Ray PERIPHERAL IV DATA: Not applicable SIGNED BY: RT Ajay(R) November 25, 2021 9:49 AM documented in this encounter [facility] 08-13-2021 History of Present illness Narrative Radiology Service Progress Note PATIENT NAME: Isac Peres DATE OF SERVICE: August 13, 2021 TIME: 8:48 AM PATIENT IDENTITY VERIFICATION COMPLETED USING TWO (2) IDENTIFIERS: Name and Date of confirmed by patient verbally. FALL SCREENING: Has the patient had 2 falls in the last year or 1 fall with injury or currently using an Ambulatory Assistive Device (Walker, Cane, Wheelchair, Crutches, etc.)? No PATIENT GENDER DATA: Female. status: : No status: NO. PATIENT RELEVANT IMPLANT DATA REVIEWED: Yes RADIOLOGY DEPARTMENT: General X-ray: Exam(s) Completed: Upper Extremity X-Ray(s): Fingers/Thumb, left PERIPHERAL IV DATA: Not applicable SIGNED BY: RT Ajay(R) August 13, 2021 8:48 AM documented in this encounter [facility] 12-26-2020 History of Present illness Narrative Radiology Service Progress Note PATIENT NAME: Isac Peres DATE OF SERVICE: December 26, 2020 TIME: 2:11 PM PATIENT IDENTITY VERIFICATION COMPLETED USING TWO (2) IDENTIFIERS: Name and Date of confirmed by patient verbally. FALL SCREENING: Has the patient had 2 falls in the last year or 1 fall with injury or currently using an Ambulatory Assistive Device (Walker, Cane, Wheelchair, Crutches, etc.)? No PATIENT GENDER DATA: Female. status: : No status: NO. PATIENT RELEVANT IMPLANT DATA REVIEWED: Yes RADIOLOGY DEPARTMENT: General X-ray: Exam(s) Completed: Skull X-Ray TMJ PERIPHERAL IV DATA: Not applicable SIGNED BY: RT Ajay December 26, 2020 2:11 PM documented in this encounter [facility] 02-26-2011 History of Past i llness Narrative Problem Noted Date Resolved Date Previous section 02/26/20112010 Calculus of gallbladder with out mention of cholecystitis or obstruction 10/08/2009 03/28/2011 Supervision of normal first 08/21/2009 03/28/2011 Dysmenorrhea 11/04/2006 04/15/2011 documented as of this encounter (statuses as of 01/06/2022) [facility] History of Past illness Narrative* Problem Noted Date Resolved Date Previous section 02/26/20112010 Calculus of gallbladder with out mention of cholecystitis or obstruction 10/08/2009 03/28/2011 Supervision of normal first 08/21/2009 03/28/2011 Dysmenorrhea 11/04/2006 04/15/2011 documented as of this encounter (statuses as of 01/07/2022) [facility] History of Past illness Narrative* Problem Noted Date Resolved Date Previous section 02/26/20112010 Calculus of gallbladder with out mention of cholecystitis or obstruction 10/08/2009 03/28/2011 Supervision of normal first 08/21/2009 03/28/2011 Dysmenorrhea 11/04/2006 04/15/2011 documented as of this encounter (statuses as of 02/05/2022) [facility] of Past [facility] Narrative* Problem Noted Date Resolved Date Previous section 02/26/20112010 Calculus of gallbladder with out mention of cholecystitis or obstruction 10/08/2009 03/28/2011 Supervision of normal first 08/21/2009 03/28/2011 Dysmenorrhea 11/04/2006 04/15/2011 documented as of this encounter (statuses as of 02/10/2022) [facility] of [facility] Narrative* Problem Noted Date Resolved Date Previous section 02/26/20112010 Calculus of gallbladder with out mention of cholecystitis or obstruction 10/08/2009 03/28/2011 Supervision of normal first 08/21/2009 03/28/2011 Dysmenorrhea 11/04/2006 04/15/2011 documented as of this encounter (statuses as of 03/05/2022) [facility] of [facility] Narrative* Problem Noted Date Resolved Date Previous section 02/26/20112010 Calculus of gallbladder with out mention of cholecystitis or obstruction 10/08/2009 03/28/2011 Supervision of normal first 08/21/2009 03/28/2011 Dysmenorrhea 11/04/2006 04/15/2011 documented as of this encounter (statuses as of 03/05/2022) [facility] Narrative* Problem Noted Date Resolved Date Previous section 02/26/20112010 Calculus of gallbladder with out mention of cholecystitis or obstruction 10/08/2009 03/28/2011 Supervision of normal first 08/21/2009 03/28/2011 Dysmenorrhea 11/04/2006 04/15/2011 documented as of this encounter (statuses as of 03/17/2022) [facility] Narrative* Problem Noted Date Resolved Date Previous section 02/26/20112010 Calculus of gallbladder with out mention of cholecystitis or obstruction 10/08/2009 03/28/2011 Supervision of normal first 08/21/2009 03/28/2011 Dysmenorrhea 11/04/2006 04/15/2011 documented as of this encounter (statuses as of 03/31/2022) [facility] Narrative* Problem Noted Date Resolved Date Previous section 02/26/20112010 Calculus of gallbladder with out mention of cholecystitis or obstruction 10/08/2009 03/28/2011 Supervision of normal first 08/21/2009 03/28/2011 Dysmenorrhea 11/04/2006 04/15/2011 documented as of this encounter (statuses as of 04/10/2022) [facility] Narrative* Problem Noted Date Resolved Date Previous section 02/26/20112010 Calculus of gallbladder with out mention of cholecystitis or obstruction 10/08/2009 03/28/2011 Supervision of normal first 08/21/2009 03/28/2011 Dysmenorrhea 11/04/2006 04/15/2011 documented as of this encounter (statuses as of 04/17/2022) [facility] Narrative* Problem Noted Date Resolved Date Previous section 02/26/20112010 Calculus of gallbladder with out mention of cholecystitis or obstruction 10/08/2009 03/28/2011 Supervision of normal first 08/21/2009 03/28/2011 Dysmenorrhea 11/04/2006 04/15/2011 documented as of this encounter (statuses as of 04/17/2022) [facility] Narrative* Problem Noted Date Resolved Date Previous section 02/26/20112010 Calculus of gallbladder with out mention of cholecystitis or obstruction 10/08/2009 03/28/2011 Supervision of normal first 08/21/2009 03/28/2011 Dysmenorrhea 11/04/2006 04/15/2011 documented as of this encounter (statuses as of 04/24/2022) [facility] Narrative* Problem Noted Date Resolved Date Previous section 02/26/20112010 Calculus of gallbladder with out mention of cholecystitis or obstruction 10/08/2009 03/28/2011 Supervision of normal first 08/21/2009 03/28/2011 Dysmenorrhea 11/04/2006 04/15/2011 documented as of this encounter (statuses as of 04/25/2022) [facility] Narrative* Problem Noted Date Resolved Date Previous section 02/26/20112010 Calculus of gallbladder with out mention of cholecystitis or obstruction 10/08/2009 03/28/2011 Supervision of normal first 08/21/2009 03/28/2011 Dysmenorrhea 11/04/2006 04/15/2011 documented as of this encounter (statuses as of 05/19/2022) [facility] Narrative* Problem Noted Date Resolved Date Previous section 02/26/20112010 Calculus of gallbladder with out mention of cholecystitis or obstruction 10/08/2009 03/28/2011 Supervision of normal first 08/21/2009 03/28/2011 Dysmenorrhea 11/04/2006 04/15/2011 documented as of this encounter (statuses as of 05/22/2022) [facility]arrative* Problem Noted Date Resolved Date Previous section 02/26/20112010 Calculus of gallbladder with out mention of cholecystitis or obstruction 10/08/2009 03/28/2011 Supervision of normal first 08/21/2009 03/28/2011 Dysmenorrhea 11/04/2006 04/15/2011 documented as of this encounter (statuses as of 05/23/2022) [facility]arrative* Problem Noted Date Resolved Date Previous section 02/26/20112010 Calculus of gallbladder with out mention of cholecystitis or obstruction 10/08/2009 03/28/2011 Supervision of normal first 08/21/2009 03/28/2011 Dysmenorrhea 11/04/2006 04/15/2011 documented as of this encounter (statuses as of 05/26/2022) [facility]arrative* Problem Noted Date Resolved Date Previous section 02/26/20112010 Calculus of gallbladder with out mention of cholecystitis or obstruction 10/08/2009 03/28/2011 Supervision of normal first 08/21/2009 03/28/2011 Dysmenorrhea 11/04/2006 04/15/2011 documented as of this encounter (statuses as of 05/29/2022) [facility]arrative* Problem Noted Date Resolved Date Previous section 02/26/20112010 Calculus of gallbladder with out mention of cholecystitis or obstruction 10/08/2009 03/28/2011 Supervision of normal first 08/21/2009 03/28/2011 Dysmenorrhea 11/04/2006 04/15/2011 documented as of this encounter (statuses as of 06/05/2022) [facility]arrative* Problem Noted Date Resolved Date Previous section 02/26/20112010 Calculus of gallbladder with out mention of cholecystitis or obstruction 10/08/2009 03/28/2011 Supervision of normal first 08/21/2009 03/28/2011 Dysmenorrhea 11/04/2006 04/15/2011 documented as of this encounter (statuses as of 06/22/2022) [facility] Narrative* Problem Noted Date Resolved Date Previous section 02/26/20112010 Calculus of gallbladder with out mention of cholecystitis or obstruction 10/08/2009 03/28/2011 Supervision of normal first 08/21/2009 03/28/2011 Dysmenorrhea 11/04/2006 04/15/2011 documented as of this encounter (statuses as of 07/10/2022) [facility]arrative* Problem Noted Date Resolved Date Previous section 02/26/20112010 Calculus of gallbladder with out mention of cholecystitis or obstruction 10/08/2009 03/28/2011 Supervision of normal first 08/21/2009 03/28/2011 Dysmenorrhea 11/04/2006 04/15/2011 documented as of this encounter (statuses as of 07/10/2022) [facility]arrative* Problem Noted Date Resolved Date Previous section 02/26/20112010 Calculus of gallbladder with out mention of cholecystitis or obstruction 10/08/2009 03/28/2011 Supervision of normal first 08/21/2009 03/28/2011 Dysmenorrhea 11/04/2006 04/15/2011 documented as of this encounter (statuses as of 08/11/2022) [facility]arrative* Problem Noted Date Resolved Date Previous section 02/26/20112010 Calculus of gallbladder with out mention of cholecystitis or obstruction 10/08/2009 03/28/2011 Supervision of normal first 08/21/2009 03/28/2011 Dysmenorrhea 11/04/2006 04/15/2011 documented as of this encounter (statuses as of 08/13/2022) [facility]2011 History of Past illness Narrative* Problem Noted Date Resolved Date Previous section 02/26/20112010 Calculus of gallbladder with out mention of cholecystitis or obstruction 10/08/2009 03/28/2011 Supervision of normal first 08/21/2009 03/28/2011 Dysmenorrhea 11/04/2006 04/15/2011 documented as of this encounter (statuses as of 08/15/2022) [facility]2011 History of Past illness Narrative* Problem Noted Date Resolved Date Previous section 02/26/20112010 Calculus of gallbladder with out mention of cholecystitis or obstruction 10/08/2009 03/28/2011 Supervision of normal first 08/21/2009 03/28/2011 Dysmenorrhea 11/04/2006 04/15/2011 documented as of this encounter (statuses as of 09/15/2022) [facility]2011 History of Past illness Narrative* Problem Noted Date Resolved Date Previous section 02/26/20112010 Calculus of gallbladder with out mention of cholecystitis or obstruction 10/08/2009 03/28/2011 Supervision of normal first 08/21/2009 03/28/2011 Dysmenorrhea 11/04/2006 04/15/2011 documented as of this encounter (statuses as of 09/16/2022) [facility]2011 History of Past illness Narrative* Problem Noted Date Resolved Date Previous section 02/26/20112010 Calculus of gallbladder with out mention of cholecystitis or obstruction 10/08/2009 03/28/2011 Supervision of normal first 08/21/2009 03/28/2011 Dysmenorrhea 11/04/2006 04/15/2011 documented as of this encounter (statuses as of 09/17/2022) [facility]2011 History of Past illness Narrative* Problem Noted Date Resolved Date Previous section 02/26/20112010 Calculus of gallbladder with out mention of cholecystitis or obstruction 10/08/2009 03/28/2011 Supervision of normal first 08/21/2009 03/28/2011 Dysmenorrhea 11/04/2006 04/15/2011 documented as of this encounter (statuses as of 09/23/2022) [facility] History of Past illness Narrative* Problem Noted Date Resolved Date Previous section 02/26/20112010 Calculus of gallbladder with out mention of cholecystitis or obstruction 10/08/2009 03/28/2011 Supervision of normal first 08/21/2009 03/28/2011 Dysmenorrhea 11/04/2006 04/15/2011 documented as of this encounter (statuses as of 10/08/2022) [facility] History of Past illness Narrative* Problem Noted Date Resolved Date Previous section 02/26/20112010 Calculus of gallbladder with out mention of cholecystitis or obstruction 10/08/2009 03/28/2011 Supervision of normal first 08/21/2009 03/28/2011 Dysmenorrhea 11/04/2006 04/15/2011 documented as of this encounter (statuses as of 10/10/2022) [facility]2011 History of Past illness Narrative* Problem Noted Date Resolved Date Previous section 02/26/20112010 Calculus of gallbladder with out mention of cholecystitis or obstruction 10/08/2009 03/28/2011 Supervision of normal first 08/21/2009 03/28/2011 Dysmenorrhea 11/04/2006 04/15/2011 documented as of this encounter (statuses as of 10/16/2022) [facility] History of Past illness Narrative* Problem Noted Date Resolved Date Previous section 02/26/20112010 Calculus of gallbladder with out mention of cholecystitis or obstruction 10/08/2009 03/28/2011 Supervision of normal first 08/21/2009 03/28/2011 Dysmenorrhea 11/04/2006 04/15/2011 documented as of this encounter (statuses as of 11/10/2022) [facility] History of Past illness Narrative* Problem Noted Date Resolved Date Previous section 02/26/20112010 Calculus of gallbladder with out mention of cholecystitis or obstruction 10/08/2009 03/28/2011 Supervision of normal first 08/21/2009 03/28/2011 Dysmenorrhea 11/04/2006 04/15/2011 documented as of this encounter (statuses as of 11/17/2022) [facility] History of Past illness Narrative* Problem Noted Date Resolved Date Previous section 02/26/20112010 Calculus of gallbladder with out mention of cholecystitis or obstruction 10/08/2009 03/28/2011 Supervision of normal first 08/21/2009 03/28/2011 Dysmenorrhea 11/04/2006 04/15/2011 documented as of this encounter (statuses as of 12/16/2022) [facility]2011 History of Past illness Narrative* Problem Noted Date Resolved Date Previous section 02/26/20112010 Calculus of gallbladder with out mention of cholecystitis or obstruction 10/08/2009 03/28/2011 Supervision of normal first 08/21/2009 03/28/2011 Dysmenorrhea 11/04/2006 04/15/2011 documented as of this encounter (statuses as of 12/18/2022) [facility]2011 History of Past illness Narrative* Problem Noted Date Resolved Date Previous section 02/26/20112010 Calculus of gallbladder with out mention of cholecystitis or obstruction 10/08/2009 03/28/2011 Supervision of normal first 08/21/2009 03/28/2011 Dysmenorrhea 11/04/2006 04/15/2011 documented as of this encounter (statuses as of 12/18/2022) [facility]2011 History of Past illness Narrative* Problem Noted Date Resolved Date Previous section 02/26/20112010 Calculus of gallbladder with out mention of cholecystitis or obstruction 10/08/2009 03/28/2011 Supervision of normal first 08/21/2009 03/28/2011 Dysmenorrhea 11/04/2006 04/15/2011 documented as of this encounter (statuses as of 12/19/2022) [facility] History of Past illness Narrative* Problem Noted Date Resolved Date Previous section 02/26/20112010 Calculus of gallbladder with out mention of cholecystitis or obstruction 10/08/2009 03/28/2011 Supervision of normal first 08/21/2009 03/28/2011 Dysmenorrhea 11/04/2006 04/15/2011 documented as of this encounter (statuses as of 12/26/2022) [facility]2011 History of Past illness Narrative* Problem Noted Date Resolved Date Previous section 02/26/20112010 Calculus of gallbladder with out mention of cholecystitis or obstruction 10/08/2009 03/28/2011 Supervision of normal first 08/21/2009 03/28/2011 Dysmenorrhea 11/04/2006 04/15/2011 documented as of this encounter (statuses as of 01/22/2023) [facility]2011 History of Past illness Narrative* Problem Noted Date Resolved Date Previous section 02/26/20112010 Calculus of gallbladder with out mention of cholecystitis or obstruction 10/08/2009 03/28/2011 Supervision of normal first 08/21/2009 03/28/2011 Dysmenorrhea 11/04/2006 04/15/2011 documented as of this encounter (statuses as of 03/06/2023) [facility]2011 History of Past illness Narrative* Problem Noted Date Resolved Date Previous section 02/26/20112010 Calculus of gallbladder with out mention of cholecystitis or obstruction 10/08/2009 03/28/2011 Supervision of normal first 08/21/2009 03/28/2011 Dysmenorrhea 11/04/2006 04/15/2011 documented as of this encounter (statuses as of 03/19/2023) [facility]2011 History of Past illness Narrative* Problem Noted Date Resolved Date Previous section 02/26/20112010 Calculus of gallbladder with out mention of cholecystitis or obstruction 10/08/2009 03/28/2011 Supervision of normal first 08/21/2009 03/28/2011 Dysmenorrhea 11/04/2006 04/15/2011 documented as of this encounter (statuses as of 04/01/2023) [facility]2011 History of Past illness Narrative* Problem Noted Date Resolved Date Previous section 02/26/20112010 Calculus of gallbladder with out mention of cholecystitis or obstruction 10/08/2009 03/28/2011 Supervision of normal first 08/21/2009 03/28/2011 Dysmenorrhea 11/04/2006 04/15/2011 documented as of this encounter (statuses as of 04/02/2023) [facility]2011 History of Past illness Narrative* Problem Noted Date Resolved Date Previous section 02/26/20112010 Calculus of gallbladder with out mention of cholecystitis or obstruction 10/08/2009 03/28/2011 Supervision of normal first 08/21/2009 03/28/2011 Dysmenorrhea 11/04/2006 04/15/2011 documented as of this encounter (statuses as of 04/03/2023) [address]25-2011 History of Past illness Narrative* Problem Noted Date Resolved Date Previous section 02/26/20112010 Calculus of gallbladder with out mention of cholecystitis or obstruction 10/08/2009 03/28/2011 Supervision of normal first 08/21/2009 03/28/2011 Dysmenorrhea 11/04/2006 04/15/2011 documented as of this encounter (statuses as of 04/03/2023) [facility] History of Past illness Narrative* Problem Noted Date Diagnosed Date Resolved Date Previous section 02/26/2011 Calculus of gallbladder with out mention of cholecystitis or obstruction 10/08/2009 03/28/2011 Supervision of normal first 08/21/2009 03/28/2011 Dysmenorrhea 11/04/2006 04/15/2011 documented as of this encounter (statuses as of 04/13/2023) [address]25-2011 History of Past illness Narrative* Problem Noted Date Diagnosed Date Resolved Date Previous section 02/26/2011 Calculus of gallbladder with out mention of cholecystitis or obstruction 10/08/2009 03/28/2011 Supervision of normal first 08/21/2009 03/28/2011 Dysmenorrhea 11/04/2006 04/15/2011 documented as of this encounter (statuses as of 04/15/2023) [address]25-2011 History of Past illness Narrative* Problem Noted Date Diagnosed Date Resolved Date Previous section 02/26/2011 Calculus of gallbladder with out mention of cholecystitis or obstruction 10/08/2009 03/28/2011 Supervision of normal first 08/21/2009 03/28/2011 Dysmenorrhea 11/04/2006 04/15/2011 documented as of this encounter (statuses as of 05/19/2023) [place] [address]-25-2011 History of Past illness Narrative* Problem Noted Date Diagnosed Date Resolved Date Previous section 02/26/2011 Calculus of gallbladder with out mention of cholecystitis or obstruction 10/08/2009 03/28/2011 Supervision of normal first 08/21/2009 03/28/2011 Dysmenorrhea 11/04/2006 04/15/2011 documented as of this encounter (statuses as of 06/15/2023) [facility]2011 History of Past illness Narrative* Problem Noted Date Diagnosed Date Resolved Date Previous section 02/26/2011 Calculus of gallbladder with out mention of cholecystitis or obstruction 10/08/2009 03/28/2011 Supervision of normal first 08/21/2009 03/28/2011 Dysmenorrhea 11/04/2006 04/15/2011 documented as of this encounter (statuses as of 07/04/2023) [facility]2011 History of Past illness Narrative* Problem Noted Date Diagnosed Date Resolved Date Previous section 02/26/2011 Calculus of gallbladder with out mention of cholecystitis or obstruction 10/08/2009 03/28/2011 Supervision of normal first 08/21/2009 03/28/2011 Dysmenorrhea 11/04/2006 04/15/2011 documented as of this encounter (statuses as of 08/09/2023) [facility]2011 History of Past illness Narrative* Problem Noted Date Diagnosed Date Resolved Date Previous section 02/26/2011 Calculus of gallbladder with out mention of cholecystitis or obstruction 10/08/2009 03/28/2011 Supervision of normal first 08/21/2009 03/28/2011 Dysmenorrhea 11/04/2006 04/15/2011 documented as of this encounter (statuses as of 09/08/2023) [facility]2011 History of Past illness Narrative* Problem Noted Date Diagnosed Date Resolved Date Previous section 02/26/2011 Calculus of gallbladder with out mention of cholecystitis or obstruction 10/08/2009 03/28/2011 Supervision of normal first 08/21/2009 03/28/2011 Dysmenorrhea 11/04/2006 04/15/2011 documented as of this encounter (statuses as of 09/18/2023) [facility]2011 History of Past illness Narrative* Problem Noted Date Diagnosed Date Resolved Date Previous section 02/26/2011 Calculus of gallbladder with out mention of cholecystitis or obstruction 10/08/2009 03/28/2011 Supervision of normal first 08/21/2009 03/28/2011 Dysmenorrhea 11/04/2006 04/15/2011 documented as of this encounter (statuses as of 11/12/2023) [facility]2011 History of Past illness Narrative* Problem Noted Date Diagnosed Date Resolved Date Previous section 02/26/2011 Calculus of gallbladder with out mention of cholecystitis or obstruction 10/08/2009 03/28/2011 Supervision of normal first 08/21/2009 03/28/2011 Dysmenorrhea 11/04/2006 04/15/2011 documented as of this encounter (statuses as of 11/17/2023) [facility]2011 History of Past illness Narrative* Problem Noted Date Diagnosed Date Resolved Date Previous section 02/26/2011 Calculus of gallbladder with out mention of cholecystitis or obstruction 10/08/2009 03/28/2011 Supervision of normal first 08/21/2009 03/28/2011 Dysmenorrhea 11/04/2006 04/15/2011 documented as of this encounter (statuses as of 12/08/2023) [facility]2011 History of Past illness Narrative* Problem Noted Date Diagnosed Date Resolved Date Previous section 02/26/2011 Calculus of gallbladder with out mention of cholecystitis or obstruction 10/08/2009 03/28/2011 Supervision of normal first 08/21/2009 03/28/2011 Dysmenorrhea 11/04/2006 04/15/2011 documented as of this encounter (statuses as of 12/16/2023) [facility]2011 History of Past illness Narrative* Problem Noted Date Diagnosed Date Resolved Date Previous section 02/26/2011 Calculus of gallbladder with out mention of cholecystitis or obstruction 10/08/2009 03/28/2011 Supervision of normal first 08/21/2009 03/28/2011 Dysmenorrhea 11/04/2006 04/15/2011 documented as of this encounter (statuses as of 12/22/2023) [facility]2011 History of Past illness Narrative* Problem Noted Date Diagnosed Date Resolved Date Previous section 02/26/2011 Calculus of gallbladder with out mention of cholecystitis or obstruction 10/08/2009 03/28/2011 Supervision of normal first 08/21/2009 03/28/2011 Dysmenorrhea 11/04/2006 04/15/2011 documented as of this encounter (statuses as of 01/18/2024) [facility] Diagnosis Adult ADHD Attention deficit disorder with hyperactivity [facility] Diagnosis Positive EBONIE (antinuclear antibody)- Primary Other and unspecified nonspecific immunological findings Vitamin D deficiency Unspecified vitamin D deficiency [facility] Diagnosis Adult ADHD Attention deficit disorder with hyperactivity [facility] Diagnosis Acute pain of right knee- Primary [facility] Diagnosis Dermatitis- Primary Contact dermatitis and other eczema, due to unspecified cause [facility] Diagnosis Migraine without aura and without status migrainosus, not intractable- Primary Migraine without aura, without mention of intractable migraine without mention of status migrainosus Memory difficulties Memory loss Chronic nonintractable headache, unspecified headache type [facility] Diagnosis Fatigue, unspecified type Myalgia Mylagia and myositis, unspecified [facility] Diagnosis Adult ADHD Attention deficit disorder with hyperactivity [facility] Memory difficulties Memory loss Migraine without aura and without status migrainosus, not intractable Migraine without aura, without mention of intractable migraine without mention of status migrainosus Chronic nonintractable headache, unspecified headache type [facility] Diagnosis White matter abnormality on MRI of brain- Primary Nonspecific (abnormal) findings on radiological and other examination of skull and head Tingling Disturbance of skin sensation Memory difficulties Memory loss Migraine without aura and without status migrainosus, not intractable Migraine without aura, without mention of intractable migraine without mention of status migrainosus [facility] noteNo assessment information availableWBlanchard [facility] Work Phone: Evaluation note* Diagnosis Demyelinating disease of central nervous system (HCC) Demyelinating disease of central nervous system, unspecified Migraine without aura and without status migrainosus, not intractable- Primary Migraine without aura, without mention of intractable migraine without mention of status migrainosus Chronic nonintractable headache, unspecified headache type Memory difficulties Memory loss [facility] Migraine without aura and without status migrainosus, not intractable- Primary Migraine without aura, without mention of intractable migraine without mention of status migrainosus Chronic nonintractable headache, unspecified headache type Memory difficulties Memory loss [facility] Diagnosis Adult ADHD Attention deficit disorder with hyperactivity [facility] Diagnosis 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 Tingling Disturbance of skin sensation Memory difficulties Memory loss White matter abnormality on MRI of brain Nonspecific (abnormal) findings on radiological and other examination of skull and head Migraine without aura and without status migrainosus, not intractable Migraine without aura, without mention of intractable migraine without mention of status migrainosus Diarrhea, unspecified type Vitamin D deficiency Unspecified vitamin D deficiency Multiple sclerosis (HCC) Multiple sclerosis Muscle spasm of back Other symptoms referable to back Demyelinating disease of central nervous system (HCC) Demyelinating disease of central nervous system, unspecified [facility] Diagnosis Demyelinating disease of central nervous system (HCC) Demyelinating disease of central nervous system, unspecified [facility] Diagnosis Muscle spasm of back Other symptoms referable to back [facility] Diagnosis Adult ADHD Attention deficit disorder with hyperactivity [facility] Diagnosis Multiple sclerosis (HCC)- Primary Multiple sclerosis 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)] [facility] Diagnosis UTI symptoms- Primary Other symptoms involving urinary system Pelvic pain [facility] Diagnosis Adult ADHD Attention deficit disorder with hyperactivity [facility] Diagnosis Multiple sclerosis (HCC)- Primary Multiple sclerosis [facility] Diagnosis Multiple sclerosis (HCC)- Primary Multiple sclerosis [facility] Diagnosis Adult ADHD Attention deficit disorder with hyperactivity [facility] Diagnosis Sore throat- Primary Acute pharyngitis URI, acute Acute upper respiratory infections of unspecified site [facility] Adult ADHD Attention deficit disorder with hyperactivity [facility] Diagnosis Multiple sclerosis (HCC) [facility] Diagnosis Multiple [facility] (HCC) [facility] Diagnosis Dysesthesia- Primary Disturbance of skin sensation Multiple sclerosis (HCC) [facility] Diagnosis Multiple sclerosis (HCC)- Primary Multiple sclerosis [facility] Diagnosis Urinary frequency- Primary Multiple sclerosis (HCC) Multiple sclerosis Muscle spasm of back Other symptoms referable to back [facility] Diagnosis Adult ADHD Attention deficit disorder with hyperactivity [facility] Diagnosis Multiple sclerosis (HCC) [facility] Diagnosis Adult ADHD Attention deficit disorder with hyperactivity [facility] Pel[facility] Diagnosis Sinobronchitis- Primary Unspecified sinusitis (chronic) Acute cough [facility] Diagnosis Malaise and fatigue- Primary Other malaise and fatigue Multiple sclerosis (HCC) Multiple sclerosis Neuropathic pain Neuralgia, neuritis, and radiculitis, unspecified Muscle spasm of back Other symptoms referable to back [facility] Diagnosis Adult ADHD Attention deficit disorder with hyperactivity [facility]* Diagnosis Muscle spasm of back Other symptoms referable to back [facility]* Diagnosis Multiple sclerosis (HCC)- Primary Multiple sclerosis [facility] Diagnosis Multiple sclerosis (HCC)- Primary Multiple sclerosis Vitamin D deficiency Unspecified vitamin D deficiency [facility] Diagnosis Skin rash- Primary Rash and other nonspecific skin eruption Multiple sclerosis (HCC) Multiple sclerosis Muscle spasm of back Other symptoms referable to back [facility] Diagnosis Multiple sclerosis (HCC)- Primary Multiple sclerosis Vitamin D deficiency Unspecified vitamin D deficiency [facility] Diagnosis Impaired functional mobility, balance, gait, and endurance- Primary Multiple sclerosis (HCC) [facility] Diagnosis Adult ADHD Attention deficit disorder with hyperactivity Adult ADHD- Primary Attention deficit disorder with hyperactivity [facility] Diagnosis Encounter for gynecological examination (general) (routine) without abnormal findings- Primary Encounter for screening for human papillomavirus (HPV) Special screening examination for human papillomavirus (HPV) Screening for malignant neoplasm of cervix Screening for malignant neoplasm of the cervix Adult ADHD- Primary Attention deficit disorder with hyperactivity [facility] Diagnosis Adult ADHD- Primary Attention deficit disorder with hyperactivity Elevated serum creatinine Other nonspecific findings on examination of blood Elevated alkaline phosphatase level Other nonspecific abnormal serum enzyme levels [facility] Diagnosis Multiple sclerosis (HCC)- Primary Multiple sclerosis Adult ADHD Attention deficit disorder with hyperactivity Headaches Elevated alkaline phosphatase level Other nonspecific abnormal serum enzyme levels Paresthesia of both lower extremities Chronic constipation Unspecified constipation [facility] Diagnosis Elevated alkaline phosphatase level Other nonspecific abnormal serum enzyme levels [facility] Multiple [facility] (HCC) [facility] Diagnosis Urinary frequency- Primary Sore throat Acute pharyngitis Acute cystitis with hematuria Acute cystitis Viral URI with cough Acute upper respiratory infections of unspecified site [facility] Rhinosinusitis- Primary Unspecified sinusitis (chronic) [facility] Diagnosis Elevated alkaline phosphatase level- Primary Other nonspecific abnormal serum enzyme levels Elevated serum creatinine Other nonspecific findings on examination of blood [facility] Diagnosis Acute [facility] Diagnosis Elevated alkaline phosphatase level- Primary Other nonspecific abnormal serum enzyme levels [facility] Diagnosis Bronchitis- Primary Bronchitis, not specified as acute or chronic [facility] Diagnosis Elevated alkaline phosphatase level- Primary Other nonspecific abnormal serum enzyme levels Elevated serum creatinine Other nonspecific findings on examination of blood [facility] Diagnosis Elevated serum creatinine Other nonspecific findings on examination of blood [facility] Diagnosis Elevated alkaline phosphatase level Other nonspecific abnormal serum enzyme levels Elevated alkaline phosphatase level- Primary Other nonspecific abnormal serum enzyme levels [facility] Diagnosis Acute pain of right knee [facility] Diagnosis Pain of left thumb Pain in limb [facility] Diagnosis Cough [facility] Diagnosis Jaw pain [facility] Diagnosis Headaches- Primary Numbness in both legs Disturbance of skin sensation [facility] Diagnosis Dysuria- Primary Vaginal itching Pruritus of genital organs [facility] Diagnosis Multiple sclerosis (HCC)- Primary Multiple sclerosis [facility] Diagnosis Multiple sclerosis (HCC) Multiple sclerosis [facility] Diagnosis Multiple sclerosis (HCC)- Primary Multiple sclerosis Muscle spasm of back Other symptoms referable to back Paresthesia of skin Disturbance of skin sensation [facility] Diagnosis Sore throat- Primary Acute pharyngitis Acute cough Acute cough [facility] Diagnosis [facility] Diagnosis Bacterial sinusitis- Primary Unspecified sinusitis (chronic) Elevated alkaline phosphatase level- Primary Other nonspecific abnormal serum enzyme levels Elevated serum creatinine Other nonspecific findings on examination of blood Adult ADHD Attention deficit disorder with hyperactivity Multiple sclerosis (HCC) Multiple sclerosis Rheumatoid arthritis, involving unspecified site, unspecified whether rheumatoid factor present (HCC) [facility] Diagnosis Multiple sclerosis (HCC)- Primary Multiple sclerosis [facility] Diagnosis Adult ADHD- Primary Attention deficit disorder with hyperactivity Multiple sclerosis (HCC) Multiple sclerosis Elevated alkaline phosphatase level Other nonspecific abnormal serum enzyme levels Intractable migraine without aura and without status migrainosus Migraine without aura, with intractable migraine, so stated, without mention of status migrainosus Elevated serum creatinine Other nonspecific findings on examination of blood Irritability Screening for depression Encounter for screening examination for other mental health and behavioral disorders [facility] Diagnosis Adult ADHD Attention deficit disorder with hyperactivity [facility] Diagnosis Vitamin D deficiency- Primary Unspecified vitamin D deficiency [facility] Diagnosis Multiple sclerosis (HCC)- Primary Multiple sclerosis Vitamin D deficiency Unspecified vitamin D deficiency [facility] Diagnosis Multiple sclerosis (HCC)- Primary Multiple sclerosis Insomnia, unspecified type Hair thinning Alopecia, unspecified [facility] Diagnosis Melasma- Primary Other dyschromia [facility]* Diagnosis Multiple sclerosis (HCC) Multiple sclerosis [facility]* Diagnosis Melasma Other dyschromia [facility]* Diagnosis Vitamin D deficiency Unspecified vitamin D deficiency documented in this encounter [facility] note* Diagnosis Multiple sclerosis (HCC) Multiple sclerosis documented in this encounter [facility] Discharge instructions Additional Instructions AmmoniaTake Imodium with each loose stool as instructed on can be purchased without a prescription.[facility] Work Phone: Reason for referral (narrative)* Diagnostic Procedure Only (Routine) - Closed Specialty Diagnoses / Procedures Referred By Contac t Referred To Contact XR IMAGING Diagnoses Acute pain of right knee Procedures XR KNEE GENERAL 4V AP BOTH/PA BOTH/LAT/MERC RIGHT RADIOLOGIC EXAM KNEE COMPLETE 4/MORE VIEWS Chiara Pedersen APRN.DIRECTOR [employer] [address] [place] [address] Xr Imaging Referral ID Status Reason Start Date Expiration Date V isits Requested Visits Authorized [id number] Closed Auto-Generate d Referral 03/05/2022 04/04/2023 1 1 [facility] for referral (narrative)* Diagnostic Procedure Only (Routine) - Authorized Specialty Diagnoses / Procedures Referred By Contac t Referred To Contact US IMAGING Diagnoses Pelvic pain Procedures US FEMALE PELVIS TRANSVAG US TRANSVAGINAL Kelly Chavez APRN.CNP [address] [place] [address] Us Imaging Referral ID Status Reason Start Date Expiration Date Visits Requested Visits Authorized [id number] Authorized Auto-Generat ed Referral 08/11/2022 09/10/2023 1 1 [facility] for referral (narrative)* Diagnostic Procedure Only (Routine) - Closed Specialty Diagnoses / Procedures Referred By Contac t Referred To Contact US IMAGING Diagnoses Pelvic pain Procedures US FEMALE PELVIS TRANSVAG US TRANSVAGINAL Kelly Chavez APRN.DIRECTOR [employer] [address] [place] [address] [place] [address] Referral ID Status Reason Start Date Expiration Date V isits Requested Visits Authorized [id number] Closed Auto-Generate d Referral 08/11/2022 09/10/2023 1 1 [facility] for referral (narrative)* Diagnostic Procedure Only (Routine) - Authorized Specialty Diagnoses / Procedures Referred By Contac t Referred To Contact US IMAGING Diagnoses Elevated alkaline phosphatase level Procedures US ABD RIGHT UPPER QUADRANT US ABDOMINAL REAL TIME W/IMAGE LIMITED Lenny Mena APRN.DIRECTOR [employer] [address] [place] [address] [place] [address] Referral ID Status Reason Start Date Expiration Date Visits Requested Visits Authorized [id number] Authorized Auto-Generat ed Referral 05/17/2024 06/16/2025 1 1 [facility] for referral (narrative)* Diagnostic Procedure Only (Routine) - Authorized Specialty Diagnoses / Procedures Referred By Contac t Referred To Contact US IMAGING Diagnoses Elevated serum creatinine Procedures US KIDNEY/BLADDER US RETROPERITONEAL REAL TIME W/IMAGE COMPLETE Lenny Mena APRN.DIRECTOR [employer] [address] [place] [address] [place] [address] Referral ID Status Reason Start Date Expiration Date Visits Requested Visits Authorized [id number] Authorized Auto-Generat ed Referral 06/20/2024 07/20/2025 1 1 * Consult, Test, Treat (Routine) - Authorized Specialty Diagnoses / Procedures Referred By Contac t Referred To Contact Diagnoses Elevated alkaline phosphatase level Procedures CONSULT TO HEPATOLOGY OFFICE/OUTPATIENT NEW HIGH MDM 60 MINUTES Lenny Mena APRN.CNP [address] [place] [address] Referral ID Status Reason Start Date Expiration Date Visits Requested Visits Authorized [id number] Authorized PCP Requested Referral 06/20/2024 06/20/2025 1 1 [facility] for referral (narrative)* Diagnostic Procedure Only (Routine) - Closed Specialty Diagnoses / Procedures Referred By Contac t Referred To Contact US IMAGING Diagnoses Elevated serum creatinine Procedures US KIDNEY/BLADDER US RETROPERITONEAL REAL TIME W/IMAGE COMPLETE Lenny Mena APRN.CNP [address] [place] [address] Us Imaging [place] [address] Referral ID Status Reason Start Date Expiration Date V isits Requested Visits Authorized [id number] Closed Auto-Generate d Referral 06/20/2024 07/20/2025 1 1 [facility] for referral (narrative)* Outpatient Procedure (Routine) - Closed Specialty Diagnoses / Procedures Referred By Contac t Referred To Contact [facility] Diagnoses Elevated alkaline phosphatase level Procedures DDI VIBRATION CONTROLLED TRANSIENT ELASTOGRAPHY (VCTE) LIVER ELASTOGRAPHY W/O IMAG W/I&R Bjorn Lofton MD [address] [place] [id number] [place] [address] Referral ID Status Reason Start Date Expiration Date V isits Requested Visits Authorized [id number] Closed Auto-Generate d Referral 06/21/2024 06/21/2025 1 1 [facility] for referral (narrative)* Diagnostic Procedure Only (Routine) - Closed Specialty Diagnoses / Procedures Referred By Contac t Referred To Contact XR IMAGING Diagnoses Acute pain of right knee Procedures XR KNEE GENERAL 4V AP BOTH/PA BOTH/LAT/MERC RIGHT RADIOLOGIC EXAM KNEE COMPLETE 4/MORE VIEWS Chiara Pedersen, MEDICAL HISTORIAN.DIRECT[employer] [address] [place] [address] [place] [address] Referral ID Status Reason Start Date Expiration Date V isits Requested Visits Authorized [id number] Closed Auto-Generate d Referral 03/05/2022 04/04/2023 1 1 [facility] for referral (narrative)* Diagnostic Procedure Only (Routine) - Closed Specialty Diagnoses / Procedures Referred By Contac t Referred To Contact XR IMAGING Diagnoses Pain of left thumb Procedures XR DIGIT GENERAL 3V FRONTAL/LAT/OBL LT X-RAY EXAM OF FINGER(S) Kelly Chavez APRN.DIRECTOR [employer] [address] [place] [address] [place] [address] Referral ID Status Reason Start Date Expiration Date V isits Requested Visits Authorized [id number] Closed Auto-Generate d Referral 08/13/2021 09/12/2022 1 1 [facility] for visit Narrative* Outpatient Procedure (Routine) - Closed Specialty Diagnoses / Procedures Referred By Contac t Referred To Contact [facility] Diagnoses Elevated alkaline phosphatase level Procedures DDI VIBRATION CONTROLLED TRANSIENT ELASTOGRAPHY (VCTE) LIVER ELASTOGRAPHY W/O IMAG W/I&R Bjorn Lofton MD [address] [id number] [facility] [place] [address] Referral ID Status Reason Start Date Expiration Date V isits Requested Visits Authorized [id number] Closed Auto-Generate d Referral 06/21/2024 06/21/2025 1 1 [facility] for visit Narrative* Diagnostic Procedure Only (Routine) - Closed Specialty Diagnoses / Procedures Referred By Contac t Referred To Contact XR IMAGING Diagnoses Acute pain of right knee Procedures XR KNEE GENERAL 4V AP BOTH/PA BOTH/LAT/MERC RIGHT RADIOLOGIC EXAM KNEE COMPLETE 4/MORE VIEWS Chiara Pedersen, MEDICAL HISTORIAN.DIRECT[employer] [address] [place] [address] [place] [address] Referral ID Status Reason Start Date Expiration Date V isits Requested Visits Authorized [id number] Closed Auto-Generate d Referral 03/05/2022 04/04/2023 1 1 [facility] Diagnostic Procedure Only (Routine) - Closed Specialty Diagnoses / Procedures Referred By Contac t Referred To Contact XR IMAGING Diagnoses Pain of left thumb Procedures XR DIGIT GENERAL 3V FRONTAL/LAT/OBL LT X-RAY EXAM OF FINGER(S) Kelly Chavez, MEDICAL HISTORIAN.DIRECTOR [employer] [address] [place] [address] [place] [address] Referral ID Status Reason Start Date Expiration Date V isits Requested Visits Authorized [id number] Closed Auto-Generate d Referral 08/13/2021 09/12/2022 1 1 [facility] Advance Directives No Advanced Directives Records FoundDocuments on File Type Date Recorded 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 Advance Directive(s) Advance Directive(s) 02/18/2018 8:11 AM Documents on File Type Date Recorded 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 Advance Directive(s) Advance Directive(s) 02/18/2018 8:11 AM Advance Directive Response Recorded Date/ Time Living Will No May 16 8:31pm Power of Director Industrial Nursing No May 16 022 8:31pm Reason for Referral Specialty Diagnoses / Procedures Referred By Contac t Referred To Contact MR IMAGING Diagnoses Memory difficulties Migraine without aura and without status migrainosus, not intractable Chronic nonintractable headache, unspecified headache type Procedures MRI BRAIN WO IVCON MRI BRAIN BRAIN STEM W/O CONTRAST MATERIAL Kaylee Huerta, MEDICAL HISTORIAN.DIRECTOR [employer] [address] [place] [address] Mr Imaging Referral ID Status Reason Start Date Expiration Date Visits Requested Visits Authorized [id number] Authorized Auto-Generat ed Referral 04/10/2022 05/10/2023 1 1 Referral ID Status Reason Start Date Expiration Date V isits Requested Visits Authorized [id number] Closed Auto-Generate d Referral 04/10/2022 05/10/2023 1 1 Specialty Diagnoses / Procedures Referred By Contac t Referred To Contact Diagnoses Tingling Memory difficulties White matter abnormality on MRI of brain Migraine without aura and without status migrainosus, not intractable Procedures [facility]/OUTPATIENT [facility] 60-74 MINUTES Kaylee Huerta, MEDICAL HISTORIAN.DIRECTOR [employer] [address] [place] [address] Referral ID Status Reason Start Date Expiration Date Visits Requested Visits Authorized [id number] Pending Review PCP Requested Referral 04/25/2022 04/25/2023 1 1 Specialty Diagnoses / Procedures Referred By Contac t Referred To Contact MR IMAGING Diagnoses Demyelinating disease of central nervous system (HCC) Procedures MRI THORACIC SPINE WO/W IVCON MRI SPINAL CANAL THORACIC W/O & W/CONTR Arlyn Guzman MD, PhD [address] [place] [address] Mr Imaging Referral ID Status Reason Start Date Expiration Date V isits Requested Visits Authorized [id number] Closed Auto-Generate d Referral 04/28/2022 05/28/2023 1 1 Specialty Diagnoses / Procedures Referred By Contac t Referred To Contact MR IMAGING Diagnoses Demyelinating disease of central nervous system (HCC) Procedures MRI CERVICAL SPINE WO/W IVCON MRI SPINAL CANAL CERVICAL W/O & W/CONTR Arlyn Guzman MD, PhD [address] [place] [address] Mr Imaging Referral ID Status Reason Start Date Expiration Date V isits Requested Visits Authorized [id number] Closed Auto-Generate d Referral 04/28/2022 05/28/2023 1 1 Specialty Diagnoses / Procedures Referred By Contac t Referred To Contact MR IMAGING Diagnoses Demyelinating disease of central nervous system (HCC) Procedures MRI CERVICAL SPINE WO IVCON MRI SPINAL CANAL CERVICAL W/O CONTRAST Arlyn Guzman MD, PhD [address] [facility] [place] [address] Mr Imaging Referral ID Status Reason Start Date Expiration Date Visits Requested Visits Authorized [id number] Pending Review Auto-Generat ed Referral 05/29/2022 06/28/2023 1 1 Referral ID Status Reason Start Date Expiration Date V isits Requested Visits Authorized [id number] Closed Auto-Generate d Referral 05/29/2022 06/28/2023 1 1 Specialty Diagnoses / Procedures Referred By Contac t Referred To Contact Diagnoses Adult ADHD Chiara Pedersen, MEDICAL HISTORIAN.[facility] [address] [place] [address] Referral ID Status Reason Start Date Expiration Date V isits Requested Visits Authorized [id number] Pending Review 1 1 Referral ID Status Reason Start Date Expiration Date V isits Requested Visits Authorized [id number] Authorized 12/18/2022 12/18/2023 1 1 Specialty Diagnoses / Procedures Referred By Contac t Referred To Contact Psychology Diagnoses Multiple sclerosis (HCC) Procedures CONSULT TO PSYCHOLOGY OFFICE/OUTPATIENT [facility] 60-74 MINUTES Lizet Brown PA-C [address] [place] [address] Referral ID Status Reason Start Date Expiration Date Visits Requested Visits Authorized [id number] Pending Review PCP Requested Referral 04/02/2023 04/01/2024 1 1 Specialty Diagnoses / Procedures Referred By Contac t Referred To Contact Pain Management Diagnoses Multiple sclerosis (HCC) Neuropathic pain Muscle spasm of back Procedures CONSULT TO PAIN MGT OFFICE/OUTPATIENT [facility] MDM 60 MINUTES Lizet Brown PA-C [address] [place] [address] Referral ID Status Reason Start Date Expiration Date Visits Requested Visits Authorized [id number] Authorized PCP Requested Referral 11/17/2023 11/16/2024 1 1 Specialty Diagnoses / Procedures Referred By Contac t Referred To Contact MR IMAGING Diagnoses Multiple sclerosis (HCC) Procedures MRI BRAIN WO IVCON MRI BRAIN BRAIN STEM W/O CONTRAST MATERIAL Lizet Brown PA-C [address] [place] [address] Mr Imaging [place] [address] Referral ID Status Reason Start Date Expiration Date Visits Requested Visits Authorized [id number] Pending Review Auto-Generat ed Referral 03/17/2024 04/16/2025 1 1 Specialty Diagnoses / Procedures Referred By Contac t Referred To Contact Diagnoses Multiple sclerosis (HCC) Procedures CONSULT TO WELLNESS PHYSICIAN OFFICE/OUTPATIENT NEW HIGH MDM 60 MINUTES Lizet Brown PA-C [address] [id number] Referral ID Status Reason Start Date Expiration Date Visits Requested Visits Authorized [id number] Authorized PCP Requested Referral 03/31/2024 03/31/2025 1 1 Specialty Diagnoses / Procedures Referred By Contac t Referred To Contact [facility] Diagnoses Multiple sclerosis (HCC) Procedures CONSULT TO PHYSICAL THERAPY [facility]AP[facility] 45 MINS Lizet Brown PA-C [address] [phone] [facility] [place] [address] Referral ID Status Reason Start Date Expiration Date Visits Requested Visits Authorized [id number] Pending Review Auto-Generat ed Referral 03/31/2024 03/31/2025 1 1 Specialty Diagnoses / Procedures Referred By Contac t Referred To Contact Dermatology Diagnoses Skin rash Procedures CONSULT TO DERMATOLOGY Lizet Brown PA-C [address] [place] [address] Referral ID Status Reason Start Date Expiration Date Visits Requested Visits Authorized [id number] Ref Not Required PCP Requested Referral 03/31/2024 03/31/2025 1 1 Specialty Diagnoses / Procedures Referred By Contac t Referred To Contact Diagnoses Adult ADHD Headaches Procedures CONSULT FOR ACUPUNCTURE ACUPUNCTURE 1/> NDLS W/ELEC STIMJ 1ST 15 MIN ACUP /> NDLS W/ELEC STIMJ EA 15 MIN W/RE-INSJ Francesca Sen PA-C [address] [place] [address] Referral ID Status Reason Start Date Expiration Date Visits Requested Visits Authorized [id number] Pending Review PCP Requested Referral 05/19/2024 08/17/2024 1 1 Referral ID Status Reason Start Date Expiration Date V isits Requested Visits Authorized [id number] Closed Auto-Generate d Referral 03/17/2024 04/16/2025 1 1 Chief Complaint and Reason for Visit Chief Complaint abd pain Summary Purpose Family History No Family History Records FoundNo Family History Records FoundNo Family History Records Found Medications Administered Section Inactive Administered Medications - up to 3 most recent administrations Medication Order MAR Action Action Date Dose Rate Site acetaminophen 1,000 mg tab(s) (TYLENOL) 1,000 mg, ORAL, ONCE, 1 dose, On Ale 10/02/22 at 0800, No more than 4000 mg of acetaminophen should be given per day (FROM ALL SOURCES), If ordered PRN for pain, patient/guardian may elect to receive this medication for higher pain levels INSTEAD of the opioid, if preferred: N/A Given 10/02/2022 8:00 AM EST 1,000 mg diphenhydrAMINE 50 mg (BENADRYL) 50 mg, ORAL, ONCE, 1 dose, On Ale 10/02/22 at 0800 Given 10/02/2022 8:00 AM EST 50 mg methylPREDNISolone sod succinate(PF) 100 mg injection (SOLU-Medrol) 100 mg, INTRAVENOUS, ONCE, 1 dose, On Ale 10/02/22 at 0800 Given 10/02/2022 8:00 AM EST 100 mg ocrelizumab (OCREVUS) in NaCl 0.9% Vial-Mate 300 mg 250 mL 300 mg, INTRAVENOUS, ONCE, 1 dose, On Ale 10/02/22 at 0800, Initial infusion. Start infusion at 30 mL/hr, Increase by 30 mL/hr every 30 minutes. Maximum rate = 180 mL/hr APPROXIMATE TOTAL VOLUME: 285 mL For 300 mg doses, administer one 300 mg/250 mL bag. For 600 mg doses, administer two 300 mg/250 mL bags. Administer with 0.2 micron filter. Refrigerate - Protect From Light. Rate/Dose Change 10/02/2022 11:00 AM EST 180 mL/hr Rate/Dose Change 10/02/2022 10:30 AM EST 150 mL /hr Rate/Dose Change 10/02/2022 10:00 AM EST 120 mL /hr Inactive Administered Medications - up to 3 most recent administrations Medication Order MAR Action Action Date Dose Rate Site acetaminophen 1,000 mg tab(s) (TYLENOL) 1,000 mg, ORAL, ONCE, 1 dose, On Ale 10/16/22 at 0800, No more than 4000 mg of acetaminophen should be given per day (FROM ALL SOURCES), If ordered PRN for pain, patient/guardian may elect to receive this medication for higher pain levels INSTEAD of the opioid, if preferred: N/A Given 10/16/2022 8:05 AM EST 1,000 mg diphenhydrAMINE 50 mg (BENADRYL) 50 mg, ORAL, ONCE, 1 dose, On Ale 10/16/22 at 0800 Given 10/16/2022 8:05 AM EST 50 mg methylPREDNISolone sod succinate(PF) 100 mg injection (SOLU-Medrol) 100 mg, INTRAVENOUS, ONCE, 1 dose, On Ale 10/16/22 at 0800 Given 10/16/2022 8:10 AM EST 100 mg ocrelizumab (OCREVUS) in NaCl 0.9% Vial-Mate 300 mg 250 mL 300 mg, INTRAVENOUS, ONCE, 1 dose, On Ale 10/16/22 at 0800, Initial infusion. Start infusion at 30 mL/hr, Increase by 30 mL/hr every 30 minutes. Maximum rate = 180 mL/hr APPROXIMATE TOTAL VOLUME: 285 mL For 300 mg doses, administer one 300 mg/250 mL bag. For 600 mg doses, administer two 300 mg/250 mL bags. Administer with 0.2 micron filter. Refrigerate - Protect From Light. Rate/Dose Change 10/16/2022 11:00 AM EST 180 mL/hr Rate/Dose Change 10/16/2022 10:30 AM EST 150 mL /hr Rate/Dose Change 10/16/2022 10:00 AM EST 120 mL /hr Inactive Administered Medications - up to 3 most recent administrations Medication Order MAR Action Action Date Dose Rate Site acetaminophen 1,000 mg tab(s) (TYLENOL) 1,000 mg, ORAL, ONCE, 1 dose, On Ale 04/02/23 at 0800, No more than 4000 mg of acetaminophen should be given per day (FROM ALL SOURCES), If ordered PRN for pain, patient/guardian may elect to receive this medication for higher pain levels INSTEAD of the opioid, if preferred: N/A Given 04/02/2023 8:05 AM EDT 1,000 mg diphenhydrAMINE 50 mg (BENADRYL) 50 mg, ORAL, ONCE, 1 dose, On Ale 04/02/23 at 0800 Given 04/02/2023 8:05 AM EDT 50 mg methylPREDNISolone sod succinate(PF) 100 mg injection (SOLU-Medrol) 100 mg, INTRAVENOUS, ONCE, 1 dose, On Ale 04/02/23 at 0800 Given 04/02/2023 8:05 AM EDT 100 mg ocrelizumab (OCREVUS) in NaCl 0.9% Vial-Mate 600 mg 500 mL 600 mg, INTRAVENOUS, ONCE, 1 dose, On Ale 04/02/23 at 0800, Subsequent infusion. Start infusion at 100 mL/hour for 15 minutes, then increase to 200 mL/hour for 15 minutes, then increase to 250 mL/hour for 30 minutes, then increase to 300 mL/hour for remainder of infusion. Maximum rate = 300mL/hour. APPROXIMATE TOTAL VOLUME: 560 mL For 300 mg doses, administer one 300 mg/250 mL bag. For 600 mg doses, administer two 300 mg/250 mL bags. Administer with 0.2 micron filter. Refrigerate - Protect From Light. New Bag/Syringe/Bottle 04/02/2023 9:50 AM EDT 300 mg 300 mL/hr Rate/Dose Change 04/02/2023 9:30 AM EDT 300 mL/ hr Rate/Dose Change 04/02/2023 9:00 AM EDT 250 mL/ hr Additional Source Comments Source Comments (unrecognize d section and content) In the event this informatio n is protected by the Federal Confidentiality of Alcohol and Drug Abuse Patient Records regulations: The Federal rules restrict any use of the information to criminally investigate or prosecute any alcohol or drug abuse patient.[facility]In the event this information is protected by the Federal Confidentiality of Alcohol and Drug Abuse Patient Records regulations: The Federal rules restrict any use of the information to criminally investigate or prosecute any alcohol or drug abuse patient.[facility] HospitalIn the event this information is protected by the Federal Confidentiality of Alcohol and Drug Abuse Patient Records regulations: The Federal rules restrict any use of the information to criminally investigate or prosecute any alcohol or drug abuse patient.[facility] HospitalIn the event this information is protected by the Federal Confidentiality of Alcohol and Drug Abuse Patient Records regulations: The Federal rules restrict any use of the information to criminally investigate or prosecute any alcohol or drug abuse patient.[facility] HospitalIn the event this information is protected by the Federal Confidentiality of Alcohol and Drug Abuse Patient Records regulations: The Federal rules restrict any use of the information to criminally investigate or prosecute any alcohol or drug abuse patient.[facility] HospitalIn the event this information is protected by the Federal Confidentiality of Alcohol and Drug Abuse Patient Records regulations: The Federal rules restrict any use of the information to criminally investigate or prosecute any alcohol or drug abuse patient.[facility] the event this information is protected by the Federal Confidentiality of Alcohol and Drug Abuse Patient Records regulations: The Federal rules restrict any use of the information to criminally investigate or prosecute any alcohol or drug abuse patient.[facility] HospitalIn the event this information is protected by the Federal Confidentiality of Alcohol and Drug Abuse Patient Records regulations: The Federal rules restrict any use of the information to criminally investigate or prosecute any alcohol or drug abuse patient.[facility] HospitalIn the event this information is protected by the Federal Confidentiality of Alcohol and Drug Abuse Patient Records regulations: The Federal rules restrict any use of the information to criminally investigate or prosecute any alcohol or drug abuse patient.[facility] the event this information is protected by the Federal Confidentiality of Alcohol and Drug Abuse Patient Records regulations: The Federal rules restrict any use of the information to criminally investigate or prosecute any alcohol or drug abuse patient.[facility] HospitalIn the event this information is protected by the Federal Confidentiality of Alcohol and Drug Abuse Patient Records regulations: The Federal rules restrict any use of the information to criminally investigate or prosecute any alcohol or drug abuse patient.[facility] HospitalIn the event this information is protected by the Federal Confidentiality of Alcohol and Drug Abuse Patient Records regulations: The Federal rules restrict any use of the information to criminally investigate or prosecute any alcohol or drug abuse patient.[facility] HospitalIn the event this information is protected by the Federal Confidentiality of Alcohol and Drug Abuse Patient Records regulations: The Federal rules restrict any use of the information to criminally investigate or prosecute any alcohol or drug abuse patient.[facility] HospitalIn the event this information is protected by the Federal Confidentiality of Alcohol and Drug Abuse Patient Records regulations: The Federal rules restrict any use of the information to criminally investigate or prosecute any alcohol or drug abuse patient.[facility] HospitalIn the event this information is protected by the Federal Confidentiality of Alcohol and Drug Abuse Patient Records regulations: The Federal rules restrict any use of the information to criminally investigate or prosecute any alcohol or drug abuse patient.[facility] HospitalIn the event this information is protected by the Federal Confidentiality of Alcohol and Drug Abuse Patient Records regulations: The Federal rules restrict any use of the information to criminally investigate or prosecute any alcohol or drug abuse patient.[facility] HospitalIn the event this information is protected by the Federal Confidentiality of Alcohol and Drug Abuse Patient Records regulations: The Federal rules restrict any use of the information to criminally investigate or prosecute any alcohol or drug abuse patient.[facility] HospitalIn the event this information is protected by the Federal Confidentiality of Alcohol and Drug Abuse Patient Records regulations: The Federal rules restrict any use of the information to criminally investigate or prosecute any alcohol or drug abuse patient.[facility] HospitalIn the event this information is protected by the Federal Confidentiality of Alcohol and Drug Abuse Patient Records regulations: The Federal rules restrict any use of the information to criminally investigate or prosecute any alcohol or drug abuse patient.[facility] HospitalIn the event this information is protected by the Federal Confidentiality of Alcohol and Drug Abuse Patient Records regulations: The Federal rules restrict any use of the information to criminally investigate or prosecute any alcohol or drug abuse patient.[facility] HospitalIn the event this information is protected by the Federal Confidentiality of Alcohol and Drug Abuse Patient Records regulations: The Federal rules restrict any use of the information to criminally investigate or prosecute any alcohol or drug abuse patient.[facility] HospitalIn the event this information is protected by the Federal Confidentiality of Alcohol and Drug Abuse Patient Records regulations: The Federal rules restrict any use of the information to criminally investigate or prosecute any alcohol or drug abuse patient.[facility] HospitalIn the event this information is protected by the Federal Confidentiality of Alcohol and Drug Abuse Patient Records regulations: The Federal rules restrict any use of the information to criminally investigate or prosecute any alcohol or drug abuse patient.[facility] HospitalIn the event this information is protected by the Federal Confidentiality of Alcohol and Drug Abuse Patient Records regulations: The Federal rules restrict any use of the information to criminally investigate or prosecute any alcohol or drug abuse patient.[facility] HospitalIn the event this information is protected by the Federal Confidentiality of Alcohol and Drug Abuse Patient Records regulations: The Federal rules restrict any use of the information to criminally investigate or prosecute any alcohol or drug abuse patient.[facility] HospitalIn the event this information is protected by the Federal Confidentiality of Alcohol and Drug Abuse Patient Records regulations: The Federal rules restrict any use of the information to criminally investigate or prosecute any alcohol or drug abuse patient.[facility] HospitalIn the event this information is protected by the Federal Confidentiality of Alcohol and Drug Abuse Patient Records regulations: The Federal rules restrict any use of the information to criminally investigate or prosecute any alcohol or drug abuse patient.[facility] HospitalIn the event this information is protected by the Federal Confidentiality of Alcohol and Drug Abuse Patient Records regulations: The Federal rules restrict any use of the information to criminally investigate or prosecute any alcohol or drug abuse patient.[facility] HospitalIn the event this information is protected by the Federal Confidentiality of Alcohol and Drug Abuse Patient Records regulations: The Federal rules restrict any use of the information to criminally investigate or prosecute any alcohol or drug abuse patient.[facility] HospitalIn the event this information is protected by the Federal Confidentiality of Alcohol and Drug Abuse Patient Records regulations: The Federal rules restrict any use of the information to criminally investigate or prosecute any alcohol or drug abuse patient.[facility] HospitalIn the event this information is protected by the Federal Confidentiality of Alcohol and Drug Abuse Patient Records regulations: The Federal rules restrict any use of the information to criminally investigate or prosecute any alcohol or drug abuse patient.[facility] HospitalIn the event this information is protected by the Federal Confidentiality of Alcohol and Drug Abuse Patient Records regulations: The Federal rules restrict any use of the information to criminally investigate or prosecute any alcohol or drug abuse patient.[facility] HospitalIn the event this information is protected by the Federal Confidentiality of Alcohol and Drug Abuse Patient Records regulations: The Federal rules restrict any use of the information to criminally investigate or prosecute any alcohol or drug abuse patient.[facility] HospitalIn the event this information is protected by the Federal Confidentiality of Alcohol and Drug Abuse Patient Records regulations: The Federal rules restrict any use of the information to criminally investigate or prosecute any alcohol or drug abuse patient.[facility] HospitalIn the event this information is protected by the Federal Confidentiality of Alcohol and Drug Abuse Patient Records regulations: The Federal rules restrict any use of the information to criminally investigate or prosecute any alcohol or drug abuse patient.[facility] HospitalIn the event this information is protected by the Federal Confidentiality of Alcohol and Drug Abuse Patient Records regulations: The Federal rules restrict any use of the information to criminally investigate or prosecute any alcohol or drug abuse patient.[facility] HospitalIn the event this information is protected by the Federal Confidentiality of Alcohol and Drug Abuse Patient Records regulations: The Federal rules restrict any use of the information to criminally investigate or prosecute any alcohol or drug abuse patient.[facility] HospitalIn the event this information is protected by the Federal Confidentiality of Alcohol and Drug Abuse Patient Records regulations: The Federal rules restrict any use of the information to criminally investigate or prosecute any alcohol or drug abuse patient.[facility] HospitalIn the event this information is protected by the Federal Confidentiality of Alcohol and Drug Abuse Patient Records regulations: The Federal rules restrict any use of the information to criminally investigate or prosecute any alcohol or drug abuse patient.[facility] HospitalIn the event this information is protected by the Federal Confidentiality of Alcohol and Drug Abuse Patient Records regulations: The Federal rules restrict any use of the information to criminally investigate or prosecute any alcohol or drug abuse patient.[facility] HospitalIn the event this information is protected by the Federal Confidentiality of Alcohol and Drug Abuse Patient Records regulations: The Federal rules restrict any use of the information to criminally investigate or prosecute any alcohol or drug abuse patient.[facility] HospitalIn the event this information is protected by the Federal Confidentiality of Alcohol and Drug Abuse Patient Records regulations: The Federal rules restrict any use of the information to criminally investigate or prosecute any alcohol or drug abuse patient.[facility] HospitalIn the event this information is protected by the Federal Confidentiality of Alcohol and Drug Abuse Patient Records regulations: The Federal rules restrict any use of the information to criminally investigate or prosecute any alcohol or drug abuse patient.[facility] HospitalIn the event this information is protected by the Federal Confidentiality of Alcohol and Drug Abuse Patient Records regulations: The Federal rules restrict any use of the information to criminally investigate or prosecute any alcohol or drug abuse patient.[facility] HospitalIn the event this information is protected by the Federal Confidentiality of Alcohol and Drug Abuse Patient Records regulations: The Federal rules restrict any use of the information to criminally investigate or prosecute any alcohol or drug abuse patient.[facility] HospitalIn the event this information is protected by the Federal Confidentiality of Alcohol and Drug Abuse Patient Records regulations: The Federal rules restrict any use of the information to criminally investigate or prosecute any alcohol or drug abuse patient.[facility] HospitalIn the event this information is protected by the Federal Confidentiality of Alcohol and Drug Abuse Patient Records regulations: The Federal rules restrict any use of the information to criminally investigate or prosecute any alcohol or drug abuse patient.[facility] HospitalIn the event this information is protected by the Federal Confidentiality of Alcohol and Drug Abuse Patient Records regulations: The Federal rules restrict any use of the information to criminally investigate or prosecute any alcohol or drug abuse patient.[facility] HospitalIn the event this information is protected by the Federal Confidentiality of Alcohol and Drug Abuse Patient Records regulations: The Federal rules restrict any use of the information to criminally investigate or prosecute any alcohol or drug abuse patient.[facility] HospitalIn the event this information is protected by the Federal Confidentiality of Alcohol and Drug Abuse Patient Records regulations: The Federal rules restrict any use of the information to criminally investigate or prosecute any alcohol or drug abuse patient.[facility] HospitalIn the event this information is protected by the Federal Confidentiality of Alcohol and Drug Abuse Patient Records regulations: The Federal rules restrict any use of the information to criminally investigate or prosecute any alcohol or drug abuse patient.[facility] HospitalIn the event this information is protected by the Federal Confidentiality of Alcohol and Drug Abuse Patient Records regulations: The Federal rules restrict any use of the information to criminally investigate or prosecute any alcohol or drug abuse patient.[facility] HospitalIn the event this information is protected by the Federal Confidentiality of Alcohol and Drug Abuse Patient Records regulations: The Federal rules restrict any use of the information to criminally investigate or prosecute any alcohol or drug abuse patient.[facility] HospitalIn the event this information is protected by the Federal Confidentiality of Alcohol and Drug Abuse Patient Records regulations: The Federal rules restrict any use of the information to criminally investigate or prosecute any alcohol or drug abuse patient.[facility] HospitalIn the event this information is protected by the Federal Confidentiality of Alcohol and Drug Abuse Patient Records regulations: The Federal rules restrict any use of the information to criminally investigate or prosecute any alcohol or drug abuse patient.[facility] HospitalIn the event this information is protected by the Federal Confidentiality of Alcohol and Drug Abuse Patient Records regulations: The Federal rules restrict any use of the information to criminally investigate or prosecute any alcohol or drug abuse patient.[facility] the event this information is protected by the Federal Confidentiality of Alcohol and Drug Abuse Patient Records regulations: The Federal rules restrict any use of the information to criminally investigate or prosecute any alcohol or drug abuse patient.[facility] HospitalIn the event this information is protected by the Federal Confidentiality of Alcohol and Drug Abuse Patient Records regulations: The Federal rules restrict any use of the information to criminally investigate or prosecute any alcohol or drug abuse patient.[facility] HospitalIn the event this information is protected by the Federal Confidentiality of Alcohol and Drug Abuse Patient Records regulations: The Federal rules restrict any use of the information to criminally investigate or prosecute any alcohol or drug abuse patient.[facility]In the event this information is protected by the Federal Confidentiality of Alcohol and Drug Abuse Patient Records regulations: The Federal rules restrict any use of the information to criminally investigate or prosecute any alcohol or drug abuse patient.[facility]In the event this information is protected by the Federal Confidentiality of Alcohol and Drug Abuse Patient Records regulations: The Federal rules restrict any use of the information to criminally investigate or prosecute any alcohol or drug abuse patient.[facility] HospitalIn the event this information is protected by the Federal Confidentiality of Alcohol and Drug Abuse Patient Records regulations: The Federal rules restrict any use of the information to criminally investigate or prosecute any alcohol or drug abuse patient.[facility] HospitalIn the event this information is protected by the Federal Confidentiality of Alcohol and Drug Abuse Patient Records regulations: The Federal rules restrict any use of the information to criminally investigate or prosecute any alcohol or drug abuse patient.[facility] HospitalIn the event this information is protected by the Federal Confidentiality of Alcohol and Drug Abuse Patient Records regulations: The Federal rules restrict any use of the information to criminally investigate or prosecute any alcohol or drug abuse patient.[facility] HospitalIn the event this information is protected by the Federal Confidentiality of Alcohol and Drug Abuse Patient Records regulations: The Federal rules restrict any use of the information to criminally investigate or prosecute any alcohol or drug abuse patient.[facility] HospitalIn the event this information is protected by the Federal Confidentiality of Alcohol and Drug Abuse Patient Records regulations: The Federal rules restrict any use of the information to criminally investigate or prosecute any alcohol or drug abuse patient.[facility]In the event this information is protected by the Federal Confidentiality of Alcohol and Drug Abuse Patient Records regulations: The Federal rules restrict any use of the information to criminally investigate or prosecute any alcohol or drug abuse patient.[facility] HospitalIn the event this information is protected by the Federal Confidentiality of Alcohol and Drug Abuse Patient Records regulations: The Federal rules restrict any use of the information to criminally investigate or prosecute any alcohol or drug abuse patient.[facility]In the event this information is protected by the Federal Confidentiality of Alcohol and Drug Abuse Patient Records regulations: The Federal rules restrict any use of the information to criminally investigate or prosecute any alcohol or drug abuse patient.[facility]In the event this information is protected by the Federal Confidentiality of Alcohol and Drug Abuse Patient Records regulations: The Federal rules restrict any use of the information to criminally investigate or prosecute any alcohol or drug abuse patient.[facility]In the event this information is protected by the Federal Confidentiality of Alcohol and Drug Abuse Patient Records regulations: The Federal rules restrict any use of the information to criminally investigate or prosecute any alcohol or drug abuse patient.[facility] HospitalIn the event this information is protected by the Federal Confidentiality of Alcohol and Drug Abuse Patient Records regulations: The Federal rules restrict any use of the information to criminally investigate or prosecute any alcohol or drug abuse patient.[facility] HospitalIn the event this information is protected by the Federal Confidentiality of Alcohol and Drug Abuse Patient Records regulations: The Federal rules restrict any use of the information to criminally investigate or prosecute any alcohol or drug abuse patient.[facility] HospitalIn the event this information is protected by the Federal Confidentiality of Alcohol and Drug Abuse Patient Records regulations: The Federal rules restrict any use of the information to criminally investigate or prosecute any alcohol or drug abuse patient.[facility]In the event this information is protected by the Federal Confidentiality of Alcohol and Drug Abuse Patient Records regulations: The Federal rules restrict any use of the information to criminally investigate or prosecute any alcohol or drug abuse patient.[facility]In the event this information is protected by the Federal Confidentiality of Alcohol and Drug Abuse Patient Records regulations: The Federal rules restrict any use of the information to criminally investigate or prosecute any alcohol or drug abuse patient.[facility]In the event this information is protected by the Federal Confidentiality of Alcohol and Drug Abuse Patient Records regulations: The Federal rules restrict any use of the information to criminally investigate or prosecute any alcohol or drug abuse patient.[facility]In the event this information is protected by the Federal Confidentiality of Alcohol and Drug Abuse Patient Records regulations: The Federal rules restrict any use of the information to criminally investigate or prosecute any alcohol or drug abuse patient.[facility] HospitalIn the event this information is protected by the Federal Confidentiality of Alcohol and Drug Abuse Patient Records regulations: The Federal rules restrict any use of the information to criminally investigate or prosecute any alcohol or drug abuse patient.[facility] HospitalIn the event this information is protected by the Federal Confidentiality of Alcohol and Drug Abuse Patient Records regulations: The Federal rules restrict any use of the information to criminally investigate or prosecute any alcohol or drug abuse patient.[facility] HospitalIn the event this information is protected by the Federal Confidentiality of Alcohol and Drug Abuse Patient Records regulations: The Federal rules restrict any use of the information to criminally investigate or prosecute any alcohol or drug abuse patient.[facility]In the event this information is protected by the Federal Confidentiality of Alcohol and Drug Abuse Patient Records regulations: The Federal rules restrict any use of the information to criminally investigate or prosecute any alcohol or drug abuse patient.[facility]In the event this information is protected by the Federal Confidentiality of Alcohol and Drug Abuse Patient Records regulations: The Federal rules restrict any use of the information to criminally investigate or prosecute any alcohol or drug abuse patient.[facility] HospitalIn the event this information is protected by the Federal Confidentiality of Alcohol and Drug Abuse Patient Records regulations: The Federal rules restrict any use of the information to criminally investigate or prosecute any alcohol or drug abuse patient.[facility] HospitalIn the event this information is protected by the Federal Confidentiality of Alcohol and Drug Abuse Patient Records regulations: The Federal rules restrict any use of the information to criminally investigate or prosecute any alcohol or drug abuse patient.[facility] HospitalIn the event this information is protected by the Federal Confidentiality of Alcohol and Drug Abuse Patient Records regulations: The Federal rules restrict any use of the information to criminally investigate or prosecute any alcohol or drug abuse patient.[facility] HospitalIn the event this information is protected by the Federal Confidentiality of Alcohol and Drug Abuse Patient Records regulations: The Federal rules restrict any use of the information to criminally investigate or prosecute any alcohol or drug abuse patient.[facility] HospitalIn the event this information is protected by the Federal Confidentiality of Alcohol and Drug Abuse Patient Records regulations: The Federal rules restrict any use of the information to criminally investigate or prosecute any alcohol or drug abuse patient.[facility] HospitalIn the event this information is protected by the Federal Confidentiality of Alcohol and Drug Abuse Patient Records regulations: The Federal rules restrict any use of the information to criminally investigate or prosecute any alcohol or drug abuse patient.[facility] HospitalIn the event this information is protected by the Federal Confidentiality of Alcohol and Drug Abuse Patient Records regulations: The Federal rules restrict any use of the information to criminally investigate or prosecute any alcohol or drug abuse patient.[facility] HospitalIn the event this information is protected by the Federal Confidentiality of Alcohol and Drug Abuse Patient Records regulations: The Federal rules restrict any use of the information to criminally investigate or prosecute any alcohol or drug abuse patient.[facility] HospitalIn the event this information is protected by the Federal Confidentiality of Alcohol and Drug Abuse Patient Records regulations: The Federal rules restrict any use of the information to criminally investigate or prosecute any alcohol or drug abuse patient.[facility] HospitalIn the event this information is protected by the Federal Confidentiality of Alcohol and Drug Abuse Patient Records regulations: The Federal rules restrict any use of the information to criminally investigate or prosecute any alcohol or drug abuse patient.[facility] HospitalIn the event this information is protected by the Federal Confidentiality of Alcohol and Drug Abuse Patient Records regulations: The Federal rules restrict any use of the information to criminally investigate or prosecute any alcohol or drug abuse patient.[facility] HospitalIn the event this information is protected by the Federal Confidentiality of Alcohol and Drug Abuse Patient Records regulations: The Federal rules restrict any use of the information to criminally investigate or prosecute any alcohol or drug abuse patient.[facility] HospitalIn the event this information is protected by the Federal Confidentiality of Alcohol and Drug Abuse Patient Records regulations: The Federal rules restrict any use of the information to criminally investigate or prosecute any alcohol or drug abuse patient.[facility] HospitalIn the event this information is protected by the Federal Confidentiality of Alcohol and Drug Abuse Patient Records regulations: The Federal rules restrict any use of the information to criminally investigate or prosecute any alcohol or drug abuse patient.[facility] HospitalIn the event this information is protected by the Federal Confidentiality of Alcohol and Drug Abuse Patient Records regulations: The Federal rules restrict any use of the information to criminally investigate or prosecute any alcohol or drug abuse patient.[facility] HospitalIn the event this information is protected by the Federal Confidentiality of Alcohol and Drug Abuse Patient Records regulations: The Federal rules restrict any use of the information to criminally investigate or prosecute any alcohol or drug abuse patient.[facility] HospitalIn the event this information is protected by the Federal Confidentiality of Alcohol and Drug Abuse Patient Records regulations: The Federal rules restrict any use of the information to criminally investigate or prosecute any alcohol or drug abuse patient.[facility] HospitalIn the event this information is protected by the Federal Confidentiality of Alcohol and Drug Abuse Patient Records regulations: The Federal rules restrict any use of the information to criminally investigate or prosecute any alcohol or drug abuse patient.[facility] HospitalIn the event this information is protected by the Federal Confidentiality of Alcohol and Drug Abuse Patient Records regulations: The Federal rules restrict any use of the information to criminally investigate or prosecute any alcohol or drug abuse patient.[facility] HospitalIn the event this information is protected by the Federal Confidentiality of Alcohol and Drug Abuse Patient Records regulations: The Federal rules restrict any use of the information to criminally investigate or prosecute any alcohol or drug abuse patient.[facility] HospitalIn the event this information is protected by the Federal Confidentiality of Alcohol and Drug Abuse Patient Records regulations: The Federal rules restrict any use of the information to criminally investigate or prosecute any alcohol or drug abuse patient.[facility] HospitalIn the event this information is protected by the Federal Confidentiality of Alcohol and Drug Abuse Patient Records regulations: The Federal rules restrict any use of the information to criminally investigate or prosecute any alcohol or drug abuse patient.[facility] HospitalIn the event this information is protected by the Federal Confidentiality of Alcohol and Drug Abuse Patient Records regulations: The Federal rules restrict any use of the information to criminally investigate or prosecute any alcohol or drug abuse patient.[facility] the event this information is protected by the Federal Confidentiality of Alcohol and Drug Abuse Patient Records regulations: The Federal rules restrict any use of the information to criminally investigate or prosecute any alcohol or drug abuse patient.[facility] HospitalIn the event this information is protected by the Federal Confidentiality of Alcohol and Drug Abuse Patient Records regulations: The Federal rules restrict any use of the information to criminally investigate or prosecute any alcohol or drug abuse patient.[facility] HospitalIn the event this information is protected by the Federal Confidentiality of Alcohol and Drug Abuse Patient Records regulations: The Federal rules restrict any use of the information to criminally investigate or prosecute any alcohol or drug abuse patient.[facility]In the event this information is protected by the Federal Confidentiality of Alcohol and Drug Abuse Patient Records regulations: The Federal rules restrict any use of the information to criminally investigate or prosecute any alcohol or drug abuse patient.[facility] HospitalIn the event this information is protected by the Federal Confidentiality of Alcohol and Drug Abuse Patient Records regulations: The Federal rules restrict any use of the information to criminally investigate or prosecute any alcohol or drug abuse patient.[facility] HospitalIn the event this information is protected by the Federal Confidentiality of Alcohol and Drug Abuse Patient Records regulations: The Federal rules restrict any use of the information to criminally investigate or prosecute any alcohol or drug abuse patient.[facility] HospitalIn the event this information is protected by the Federal Confidentiality of Alcohol and Drug Abuse Patient Records regulations: The Federal rules restrict any use of the information to criminally investigate or prosecute any alcohol or drug abuse patient.[facility] HospitalIn the event this information is protected by the Federal Confidentiality of Alcohol and Drug Abuse Patient Records regulations: The Federal rules restrict any use of the information to criminally investigate or prosecute any alcohol or drug abuse patient.[facility] HospitalIn the event this information is protected by the Federal Confidentiality of Alcohol and Drug Abuse Patient Records regulations: The Federal rules restrict any use of the information to criminally investigate or prosecute any alcohol or drug abuse patient.[facility] HospitalIn the event this information is protected by the Federal Confidentiality of Alcohol and Drug Abuse Patient Records regulations: The Federal rules restrict any use of the information to criminally investigate or prosecute any alcohol or drug abuse patient.[facility] HospitalIn the event this information is protected by the Federal Confidentiality of Alcohol and Drug Abuse Patient Records regulations: The Federal rules restrict any use of the information to criminally investigate or prosecute any alcohol or drug abuse patient.[facility] HospitalIn the event this information is protected by the Federal Confidentiality of Alcohol and Drug Abuse Patient Records regulations: The Federal rules restrict any use of the information to criminally investigate or prosecute any alcohol or drug abuse patient.[facility] HospitalIn the event this information is protected by the Federal Confidentiality of Alcohol and Drug Abuse Patient Records regulations: The Federal rules restrict any use of the information to criminally investigate or prosecute any alcohol or drug abuse patient.[facility] HospitalIn the event this information is protected by the Federal Confidentiality of Alcohol and Drug Abuse Patient Records regulations: The Federal rules restrict any use of the information to criminally investigate or prosecute any alcohol or drug abuse patient.[facility] HospitalIn the event this information is protected by the Federal Confidentiality of Alcohol and Drug Abuse Patient Records regulations: The Federal rules restrict any use of the information to criminally investigate or prosecute any alcohol or drug abuse patient.[facility] Reason for Visit (unrecogniz ed section and content) Reason Comments Infusion Ocrevus Specialty Diagnoses / Procedures Referred By Contac t Referred To Contact Diagnoses Multiple sclerosis (HCC) Procedures INJECTION, OCRELIZUMAB, 1 MG Arlyn Gomez MD, PhD [address] [place] [address] Phone: tel: fax: Multiple Sclerosis [address] [place] [address] Phone: tel: fax: Referral ID Status Reason Start Date Expiration Date V isits Requested Visits Authorized [id number] Authorized 09/08/2022 10/24/2025 99 99 Reason Comments Infusion Specialty Diagnoses / Procedures Referred By Contac t Referred To Contact Diagnoses Multiple sclerosis (HCC) Procedures INJECTION, OCRELIZUMAB, 1 MG Arlyn Gomez MD, PhD [address] [place] [address] Neur Treatment [place] [address] [place] [address] Referral ID Status Reason Start Date Expiration Date V isits Requested Visits Authorized [id number] Authorized 09/08/2022 10/24/2024 99 99 Referral ID Status Reason Start Date Expiration Date V isits Requested Visits Authorized [id number] Authorized 09/08/2022 09/08/2024 99 99 Reason Comments IV Medication Administration Ocrevus Referral ID Status Reason Start Date Expiration Date V isits Requested Visits Authorized [id number] Authorized 09/08/2022 09/08/2023 99 99 Reason Onset Date Comments Refill Request 01/06/2022 Reason Comments Insurance Authorization Adderall Reason Comments Results Orders Reason Onset Date Comments Refill Request 02/08/2022 Reason Comments Acute Visit right knee chirinos Reason Comments Results Reason Onset Date Comments Refill Request 03/15/2022 Reason Comments Rash Reason Comments Memory difficulties Headaches Specialty Diagnoses / Procedures Referred By Contac t Referred To Contact Neurology Diagnoses Memory difficulties Procedures CONSULT TO NEUROLOGY OFFICE/OUTPATIENT [facility] 60-74 MINUTES Chiara Pedersen APRN.DIRECTOR [employer] [address] [place] [address] Referral ID Status Reason Start Date Expiration Date Visits Requested Visits Authorized [id number] Pending Review PCP Requested Referral 01/29/2022 01/29/2023 1 1 Reason Comments Refill Request Reason Onset Date Comments Refill Request 04/16/2022 Specialty Diagnoses / Procedures Referred By Contac t Referred To Contact MR IMAGING Diagnoses Memory difficulties Migraine without aura and without status migrainosus, not intractable Chronic nonintractable headache, unspecified headache type Procedures MRI BRAIN WO IVCON MRI BRAIN BRAIN STEM W/O CONTRAST MATERIAL Kaylee Huerta, DAWSON.DIRECTOR DIVERSITY [address] [place] [address] Mr Imaging Referral ID Status Reason Start Date Expiration Date V isits Requested Visits Authorized [id number] Closed Auto-Generate d Referral 04/10/2022 05/10/2023 1 1 Reason Comments external document Reason Comments Radiology MRI Specialty Diagnoses / Procedures Referred By Contac t Referred To Contact MR IMAGING Diagnoses Demyelinating disease of central nervous system (HCC) Procedures MRI THORACIC SPINE WO/W IVCON MRI SPINAL CANAL THORACIC W/O & W/CONTR Arlyn Guzman MD, PhD [address] [place] [address] Mr Imaging Referral ID Status Reason Start Date Expiration Date V isits Requested Visits Authorized [id number] Closed Auto-Generate d Referral 04/28/2022 05/28/2023 1 1 Reason Comments Headache Specialty Diagnoses / Procedures Referred By Contac t Referred To Contact Neurology Diagnoses Memory difficulties Procedures CONSULT TO NEUROLOGY OFFICE/OUTPATIENT [facility] 60-74 MINUTES Chiara Pedersen, DAWSON.DIRECTOR [employer] [address] [place] [address] Reason Onset Date Comments Refill Request 05/23/2022 Reason Comments New Patient Evaluation Specialty Diagnoses / Procedures Referred By Contac t Referred To Contact Diagnoses Tingling Memory difficulties White matter abnormality on MRI of brain Migraine without aura and without status migrainosus, not intractable Procedures [facility]ULT [facility] OFF[facility]/OUTPATIENT NEW HIGH MDM 60-74 MINUTES Kaylee Huerta APRN.DIRECTOR [employer] [address] [place] [address] Referral ID Status Reason Start Date Expiration Date Visits Requested Visits Authorized [id number] Pending Review PCP Requested Referral 04/25/2022 04/25/2023 1 1 Specialty Diagnoses / Procedures Referred By Contac t Referred To Contact MR IMAGING Diagnoses Demyelinating disease of central nervous system (HCC) Procedures MRI CERVICAL SPINE WO IVCON MRI SPINAL CANAL CERVICAL W/O CONTRAST Arlyn Guzman MD, PhD [address] [place] [address] Mr Imaging Referral ID Status Reason Start Date Expiration Date V isits Requested Visits Authorized [id number] Closed Auto-Generate d Referral 05/29/2022 06/28/2023 1 1 Reason Onset Date Comments Refill Request 07/09/2022 Reason Comments Established Patient Follow-Up Reason Comments UTI Urinary frequency; p ain lower grown area on the L side; low grade temp; L flank pain Reason Onset Date Comments Refill Request 08/13/2022 Reason Onset Date Comments Refill Request 08/14/2022 Reason Comments Follow Up Medication follow up Reason Comments Insurance Authorization Opened In Error Reason Comments Insurance Authorization Aderall Reason Onset Date Comments Refill Request 11/10/2022 Reason Comments Sore Throat Drainage, cough x 1 day Reason Onset Date Comments Refill Request 12/17/2022 Reason Onset Date Comments Refill Request 12/17/2022 Reason Comments Research F/U Reason Comments IV Medication Administration ocrevus Reason Comments Established Patient Follow-Up Reason Comments Appointment [facility] per Lizet Brown staff msg request, lvm with phone number to call when ready to schedule Reason Onset Date Comments Refill Request 04/12/2023 Reason Onset Date Comments Refill Request 06/14/2023 Reason Comments Appointment LVM FOR PATIENT TO C ALL SO WE CAN GET HER SCHEDULED FOR A CONSULT TO PSYCHOLOGY Reason Comments Radiology US Specialty Diagnoses / Procedures Referred By Contac t Referred To Contact US IMAGING Diagnoses Pelvic pain Procedures US FEMALE PELVIS TRANSVAG US TRANSVAGINAL Kelly Chavez APRN.DIRECTOR [employer] [address] [facility] [place] [address] [facility] [place] [address] Referral ID Status Reason Start Date Expiration Date V isits Requested Visits Authorized [id number] Closed Auto-Generate d Referral 08/11/2022 09/10/2023 1 1 Reason Comments Cough Congestion, sore thr oat, SOB, ear pain x 2 weeks Reason Onset Date Comments Refill Request 12/08/2023 Reason Onset Date Comments Refill Request 12/20/2023 Reason Comments Insurance Authorization Reason Comments Established Patient Follow-Up Reason Comments Physical Therapy PT Eval Specialty Diagnoses / Procedures Referred By Contac t Referred To Contact [facility] Diagnoses Multiple sclerosis (HCC) Procedures CONSULT TO PHYSICAL THERAPY PHYSICAL THERAPY EVALUATION HIGH COMPLEX 45 MINS Lizet Brown PA-C [address] [place] [id number] [facility] [place] [address] [place] [address] Referral ID Status Reason Start Date Expiration Date Visits Requested Visits Authorized [id number] Authorized Auto-Generat ed Referral 10/05/2023 10/04/2024 99 99 Reason Onset Date Comments Refill Request 05/10/2024 Reason Comments Well Woman Reason Comments 6 Month Exam ADHD Reason Comments pain Specialty Diagnoses / Procedures Referred By Contac t Referred To Contact Diagnoses Multiple sclerosis (HCC) Procedures CONSULT TO [facility] PHYSICIAN OFFICE/OUTPATIENT [facility] MDM 60 MINUTES Lizet Brown PA-C [address] [place] [address] Referral ID Status Reason Start Date Expiration Date V isits Requested Visits Authorized [id number] Closed PCP Requested Referral 03/31/2024 03/31/2025 1 1 Reason Comments Radiology US Specialty Diagnoses / Procedures Referred By Contac t Referred To Contact US IMAGING Diagnoses Elevated alkaline phosphatase level Procedures US ABD RIGHT UPPER QUADRANT US ABDOMINAL REAL TIME W/IMAGE LIMITED Lenny Mena, MEDICAL HISTORIAN.DIRECTOR [employer]ERSITY [address] [place] [address] [place] [address] Referral ID Status Reason Start Date Expiration Date V isits Requested Visits Authorized [id number] Closed Auto-Generate d Referral 05/17/2024 06/16/2025 1 1 Reason Comments Urinary Problem Tender flank pain, f requency, nausea x 1 wk Fever Feels, chills, cough , muscle aches, tightness in chest, cough x 5 days Reason Comments Patient Question Reason Comments Chest Congestion Cough, SOB, chest ti ghtness, productive cough, x 10 days and increasing Specialty Diagnoses / Procedures Referred By Contac t Referred To Contact US IMAGING Diagnoses Elevated serum creatinine Procedures US KIDNEY/BLADDER US RETROPERITONEAL REAL TIME W/IMAGE COMPLETE Lenny Mena APRN.DIRECTOR [employer] [address] [place] [address] [place] [address] Referral ID Status Reason Start Date Expiration Date V isits Requested Visits Authorized [id number] Closed Auto-Generate d Referral 06/20/2024 07/20/2025 1 1 Reason Comments New Patient Elevated alkaline ph osphatase level Specialty Diagnoses / Procedures Referred By Contac t Referred To Contact Diagnoses Elevated alkaline phosphatase level Procedures CONSULT TO HEPATOLOGY OFFICE/OUTPATIENT NEW HIGH MDM 60 MINUTES Lenny Mena APRN.DIRECTOR [employer] [address] [place] [address] Referral ID Status Reason Start Date Expiration Date V isits Requested Visits Authorized [id number] Closed PCP Requested Referral 06/20/2024 06/20/2025 1 1 Reason Comments Headache Numbness Specialty Diagnoses / Procedures Referred By Contac t Referred To Contact WELLNESS Diagnoses Adult ADHD Headaches Procedures CONSULT FOR ACUPUNCTURE ACUPUNCTURE 1/> NDLS W/ELEC STIMJ 1ST 15 MIN ACUP 1/> NDLS W/ELEC STIMJ EA 15 MIN W/RE-INSJ Francesca Sen PA-C [address] [place] [address] [facility] [address] [place] [address] Referral ID Status Reason Start Date Expiration Date Visits Requested Visits Authorized [id number] Pending Review PCP Requested Referral Do Not Bill Insurance - SP patient 4 07/21/2024 1 1 Reason Comments Results Appointment lvm for patient to c all so we can get her appointmemt rescheduled with dr quintanilla Reason Comments UTI Reason Comments Results Annette+ Reason Comments Radiology MRI Specialty Diagnoses / Procedures Referred By Contac t Referred To Contact MR IMAGING Diagnoses Multiple sclerosis (HCC) Procedures MRI BRAIN WO IVCON MRI BRAIN BRAIN STEM W/O CONTRAST MATERIAL Lizet Brown PA-C [address] [place] [address] Mr Imaging [place] [address] Referral ID Status Reason Start Date Expiration Date V isits Requested Visits Authorized [id number] Closed Auto-Generate d Referral 03/17/2024 04/16/2025 1 1 Reason Comments Chest Congestion cough, fatigue, head ache and sore throat x 4 days Reason Comments URI Reason Comments 6 Month Exam Reason Comments Established Patient Follow-Up Reason Comments Appointment Reason Comments skin discoloration Specialty Diagnoses / Procedures Referred By Contac t Referred To Contact Dermatology Diagnoses Multiple sclerosis (HCC) Hair thinning Procedures CONSULT TO DERMATOLOGY OFFICE/OUTPATIENT [facility] 60 MINUTES Lizet Brown [facility]-C [address] [facility] [place] [id number] Phone: tel: fax: Referral ID Status Reason Start Date Expiration Date V isits Requested Visits Authorized [id number] Closed PCP Requested Referral 04/06/2025 04/06/2026 1 1 Reason Onset Date Comments Refill Request 05/08/2025 Reason Comments [facility] Specialty Diagnoses / Procedures Referred By Contac t Referred To Contact [facility] Diagnoses Multiple sclerosis (HCC) Procedures PHYSICAL THERAPY EVALUATION HIGH COMPLEX 45 MINS OCCUPATIONAL THERAPY EVAL HIGH COMPLEX 60 MINS THERAPEUT ACTVITY DIRECT PT CONTACT EACH 15 MIN Lizet Brown PA-C [address] [facility] [place] [address] Phone: tel: fax: [facility] [address] [place] [address] Referral ID Status Reason Start Date Expiration Date Visits Requested Visits Authorized [id number] Authorized Auto-Generat ed Referral 10/05/2024 10/04/2025 99 99 Care Teams (unrecognized sec tion and content) Emergency Department Director Relationship Specialty Start Date End Date Annie Justin MD [address] [facility] [place] [address] PCP - General Family Practice 02/09/12 Emergency Department Director Relationship Specialty Start Date End Date Annie Justin MD [address] [place] [address] PCP - General Family Practice 02/09/12 Emergency Department Director Relationship Specialty Start Date End Date Annie Justin MD [address] [place] [address] PCP - General Family Practice 02/09/12 Emergency Department Director Relationship Specialty Start Date End Date Annie Justin MD [address] [place] [address] PCP - General Family Practice 02/09/12 Emergency Department Director Relationship Specialty Start Date End Date Annie Justin MD [address] [facility] [place] [address] PCP - General Family Practice 02/09/12 Emergency Department Director Relationship Specialty Start Date End Date Annie Justin MD [address] [facility] [address] PCP - General Family Practice 02/09/12 Emergency Department Director Relationship Specialty Start Date End Date Annie Justin MD [address] [facility] [address] PCP - General Family Practice 02/09/12 Emergency Department Director Relationship Specialty Start Date End Date Annie Justin MD [address] [place] [address] PCP - General Family Practice 02/09/12 Emergency Department Director Relationship Specialty Start Date End Date Annie Justin MD [address] [facility] [address] PCP - General Family Practice 02/09/12 Emergency Department Director Relationship Specialty Start Date End Date Annie Justin MD [address] [facility] [address] PCP - General Family Practice 02/09/12 Emergency Department Director Relationship Specialty Start Date End Date Annie Justin MD [address] [facility] [address] PCP - General Family Practice 02/09/12 Emergency Department Director Relationship Specialty Start Date End Date Annie Justin MD [address] [facility] [address] PCP - General Family Practice 02/09/12 Emergency Department Director Relationship Specialty Start Date End Date Annie Justin MD [address] [facility] [place] [address] PCP - General Family Practice 02/09/12 Emergency Department Director Relationship Specialty Start Date End Date Annie Justin MD [address] [facility] [place] [address] PCP - General Family Medicine 02/09/12 Emergency Department Director Relationship Specialty Start Date End Date Annie Justin MD [address] [facility] [place] [address] PCP - General Family Medicine 02/09/12 Emergency Department Director Relationship Specialty Start Date End Date Annie Justin MD [address] [facility] [place] [address] PCP - General Family Medicine 02/09/12 Emergency Department Director Relationship Specialty Start Date End Date Annie Justin MD [address] [facility] [place] [address] PCP - General Family Medicine 02/09/12 Emergency Department Director Relationship Specialty Start Date End Date Annie Justin MD [address] [facility] [place] [address] PCP - General Family Medicine 02/09/12 Emergency Department Director Relationship Specialty Start Date End Date Annie Justin MD [address] [facility] [place] [address] PCP - General Family Medicine 02/09/12 Emergency Department Director Relationship Specialty Start Date End Date Annie Justin MD [address] [facility] [place] [address] PCP - General Family Medicine 02/09/12 Emergency Department Director Relationship Specialty Start Date End Date Annie Justin MD [address] [facility] [place] [address] PCP - General Family Medicine 02/09/12 Emergency Department Director Relationship Specialty Start Date End Date Annie Justin MD [address] [facility] [place] [address] PCP - General Family Medicine 02/09/12 Emergency Department Director Relationship Specialty Start Date End Date Annie Justin MD [address] [facility] [place] [address] PCP - General Family Medicine 02/09/12 Emergency Department Director Relationship Specialty Start Date End Date Annie Justin MD [address] [facility] [place] [address] PCP - General Family Medicine 02/09/12 Emergency Department Director Relationship Specialty Start Date End Date Annie Justin MD [address] [facility] [place] [address] PCP - General Family Medicine 02/09/12 Emergency Department Director Relationship Specialty Start Date End Date Annie Justin MD [address] [facility] [place] [address] PCP - General Family Medicine 02/09/12 Emergency Department Director Relationship Specialty Start Date End Date Annie Justin MD [address] [facility] [place] [address] PCP - General Family Medicine 02/09/12 Emergency Department Director Relationship Specialty Start Date End Date Annie Justin MD [address] [facility] [place] [address] PCP - General Family Medicine 02/09/12 Emergency Department Director Relationship Specialty Start Date End Date Annie Justin MD [address] [facility] [place] [address] PCP - General Family Medicine 02/09/12 Emergency Department Director Relationship Specialty Start Date End Date Annie Justin MD [address] [facility] [place] [address] PCP - General Family Medicine 02/09/12 Emergency Department Director Relationship Specialty Start Date End Date Annie Justin MD [address] [facility] [place] [address] PCP - General Family Medicine 02/09/12 Emergency Department Director Relationship Specialty Start Date End Date Annie Justin MD [address] [facility] [place] [address] PCP - General Family Medicine 02/09/12 Emergency Department Director Relationship Specialty Start Date End Date Annie Justin MD [address] [facility] [place] [address] PCP - General Family Medicine 02/09/12 Emergency Department Director Relationship Specialty Start Date End Date Annie Justin MD [address] [facility] [place] [address] PCP - General Family Medicine 02/09/12 Emergency Department Director Relationship Specialty Start Date End Date Annie Justin MD [address] [facility] [place] [address] PCP - General Family Medicine 02/09/12 Emergency Department Director Relationship Specialty Start Date End Date Annie Justin MD [address] [place] [address] PCP - General Family Medicine 02/09/12 Emergency Department Director Relationship Specialty Start Date End Date Annie Justin MD [address] [place] [address] PCP - General Family Medicine 02/09/12 Emergency Department Director Relationship Specialty Start Date End Date Annie Justin MD [address] [place] [address] PCP - General Family Medicine 02/09/12 Emergency Department Director Relationship Specialty Start Date End Date Annie Justin MD [address] [place] [address] PCP - General Family Medicine 02/09/12 Emergency Department Director Relationship Specialty Start Date End Date Annie Justin MD [address] [place] [address] PCP - General Family Medicine 02/09/12 Emergency Department Director Relationship Specialty Start Date End Date Annie Justin MD [address] [place] [address] PCP - General Family Medicine 02/09/12 Emergency Department Director Relationship Specialty Start Date End Date Annie Justin MD [address] [place] [address] PCP - General Family Medicine 02/09/12 Emergency Department Director Relationship Specialty Start Date End Date Annie Justin MD [address] [place] [address] PCP - General Family Medicine 02/09/12 Emergency Department Director Relationship Specialty Start Date End Date Annie Justin MD [address] [facility] [place] [address] PCP - General Family Medicine 02/09/12 Emergency Department Director Relationship Specialty Start Date End Date Annie Justin MD [address] [facility] [place] [address] PCP - General Family Medicine 02/09/12 Emergency Department Director Relationship Specialty Start Date End Date Annie Justin MD [address] [facility] [place] [address] PCP - General Family Medicine 02/09/12 Emergency Department Director Relationship Specialty Start Date End Date Annie Justin MD [address] [facility] [place] [address] PCP - General Family Medicine 02/09/12 Emergency Department Director Relationship Specialty Start Date End Date Annie Justin MD [address] [facility] [place] [address] PCP - General Family Medicine 02/09/12 Emergency Department Director Relationship Specialty Start Date End Date Annie Justin MD [address] [facility] [place] [address] PCP - General Family Medicine 02/09/12 Emergency Department Director Relationship Specialty Start Date End Date Annie Justin MD [address] [facility] [place] [address] PCP - General Family Medicine 02/09/12 Emergency Department Director Relationship Specialty Start Date End Date Annie Justin MD [address] [facility] [place] [address] PCP - General Family Medicine 02/09/12 Emergency Department Director Relationship Specialty Start Date End Date Annie Justin MD [address] [facility] [place] [address] PCP - General Family Medicine 02/09/12 Emergency Department Director Relationship Specialty Start Date End Date Annie Justin MD [address] [facility] [place] [address] PCP - General Family Medicine 02/09/12 Emergency Department Director Relationship Specialty Start Date End Date Annie Justin MD [address] [facility] [place] [address] PCP - General Family Medicine 02/09/12 Emergency Department Director Relationship Specialty Start Date End Date Annie Justin MD [address] [facility] [place] [address] PCP - General Family Medicine 02/09/12 Emergency Department Director Relationship Specialty Start Date End Date Annie Justin MD [address] [facility] [place] [address] PCP - General Family Medicine 02/09/12 Emergency Department Director Relationship Specialty Start Date End Date Annie Justin MD [address] [facility] [place] [address] PCP - General Family Medicine 02/09/12 Emergency Department Director Relationship Specialty Start Date End Date Anine Justin MD [address] [facility] [place] [address] PCP - General Family Medicine 02/09/12 Emergency Department Director Relationship Specialty Start Date End Date Annie Justin MD [address] [facility] [place] [address] PCP - General Family Medicine 02/09/12 Emergency Department Director Relationship Specialty Start Date End Date Annie Justin MD [address] [place] [address] PCP - General Family Medicine 02/09/12 Emergency Department Director Relationship Specialty Start Date End Date Annie Justin MD [address] [place] [address] PCP - General Family Medicine 02/09/12 Emergency Department Director Relationship Specialty Start Date End Date Annie Justin MD [address] [place] [address] PCP - General Family Medicine 02/09/12 Emergency Department Director Relationship Specialty Start Date End Date Annie Justin MD [address] [place] [address] PCP - General Family Medicine 02/09/12 Emergency Department Director Relationship Specialty Start Date End Date Annie Justin MD [address] [facility] [place] [address] PCP - General Family Medicine 02/09/12 Emergency Department Director Relationship Specialty Start Date End Date Annie Justin MD [address] [facility] [place] [address] PCP - General Family Medicine 02/09/12 Emergency Department Director Relationship Specialty Start Date End Date Annie Justin MD [address] [facility] [place] [address] PCP - General Family Medicine 02/09/12 Emergency Department Director Relationship Specialty Start Date End Date Annie Justin MD [address] [facility] [place] [address] PCP - General Family Medicine 02/09/12 Emergency Department Director Relationship Specialty Start Date End Date Annie Justin MD [address] [facility] [place] [address] PCP - General Family Medicine 02/09/12 Emergency Department Director Relationship Specialty Start Date End Date Annie Justin MD [address] [place] [address] PCP - General Family Medicine 02/09/12 Emergency Department Director Relationship Specialty Start Date End Date Annie Justin MD [address] [facility] [place] [address] PCP - General Family Medicine 02/09/12 Emergency Department Director Relationship Specialty Start Date End Date Annie Justin MD [address] [facility] [place] [address] PCP - General Family Medicine 02/09/12 Chiara Pedersen, MEDICAL HISTORIAN.DIRECTOR DIVERSITY [address] [facility] [place] [address] Regulatory Affairs Spec Family Medicine 09/11/24 Lenny Mena APRN.DIRECTOR [employer]ERSITY [address] [facility] [place] [address] Regulatory Affairs Spec Family Medicine 09/20/24 Emergency Department Director Relationship Specialty Start Date End Date Annie Justin MD [address] [place] [address] PCP - General Family Medicine 02/09/12 Chiara Pedersen APRN.DIRECTOR [employer]ERSITY [address] [place] [address] Regulatory Affairs Spec Family Medicine 09/11/24 Lenny Mena APRN.DIRECTOR [employer]ERSITY [address] [place] [address] Regulatory Affairs Spec Family Medicine 09/20/24 Emergency Department Director Relationship Specialty Start Date End Date Annie Justin MD [address] [place] [address] PCP - General Family Medicine 02/09/12 Chiara Pedersen APRN.DIRECTOR [employer]ERSITY [address] [place] [address] Regulatory Affairs Spec Family Medicine 09/11/24 Lenny Mena APRN.DIRECTOR [employer]ERSITY [address] [place] [address] Regulatory Affairs Spec Family [facility] 09/20/24 Emergency Department Director Relationship Specialty Start Date End Date Annie Justin MD [address] [place] [address] PCP - General Family Medicine 02/09/12 Chiara Pedersen APRN.DIRECTOR [employer]ERSITY [address] [place] [address] Regulatory Affairs Spec Family Medicine 09/11/24 Lenny Mena APRN.DIRECTOR [employer]ERSITY [address] [place] [address] Regulatory Affairs Spec Family Medicine 09/20/24 Emergency Department Director Relationship Specialty Start Date End Date Annie Justin MD [address] [place] [address] PCP - General Family Medicine 02/09/12 Chiara Pedersen APRN.DIRECTOR [employer]ERSITY [address] [place] [address] Regulatory Affairs Spec Family Medicine 09/11/24 Lenny Mena APRN.DIRECTOR [employer]ERSITY [address] [place] [address] [facility] Director Relationship Specialty Start Date End Date Annie Justin MD [address] [place] [address] PCP - General Family Medicine 02/09/12 Chiara Pedersen MEDICAL HISTORIAN.DIRECTOR DIVERSITY [address] [place] [address] Regulatory Affairs Spec Family Medicine 09/11/24 Lenny Mena MEDICAL HISTORIAN.DIRECTOR [employer]ERSITY [address] [place] [address] Regulatory Affairs Spec Family Medicine 09/20/24 Emergency Department Director Relationship Specialty Start Date End Date Annie Justin MD [address] [place] [address] PCP - General Family Medicine 02/09/12 Chiara Pedersen MEDICAL HISTORIAN.DIRECTOR DIVERSITY [address] [place] [address] Regulatory Affairs Spec Family Medicine 09/11/24 Lenny Mena APRN.DIRECTOR DIVERSITY [address] [facility] [place] [address] [facility] Emergency Department Director Relationship Specialty Start Date End Date Annie Justin MD [address] [facility] [place] [address] PCP - General Family Medicine 02/09/12 Chiara Pedersen APRN.DIRECTOR DIVERSITY [address] [facility] [place] [address] [facility] 09/11/24 Lenny Mena APRN.DIRECTOR DIVERSITY [address] [facility] [place] [address] [facility] Emergency Department Director Relationship Specialty Start Date End Date Annie Justin MD [address] [facility] [place] [address] PCP - General Family Medicine 02/09/12 Chiara Pedersen APRN.DIRECTOR DIVERSITY [address] [facility] [place] [address] Regulatory Affairs Spec Family Medicine 09/11/24 Lenny Mena APRN.DIRECTOR DIVERSITY [address] [facility] [place] [address] [facility] 09/[facility]/24 Emergency Department Director Relationship Specialty Start Date End Date Annie Justin MD [address] [facility] [place] [address] PCP - General Family Medicine 02/09/12 Chiara Pedersen APRN.DIRECTOR DIVERSITY [address] [facility] [place] [address] Regulatory Affairs Spec Family Medicine 09/11/24 Lenny Mena APRN.DIRECTOR DIVERSITY [address] [place] [address] Regulatory Affairs Spec Family Medicine 09/20/24 Emergency Department Director Relationship Specialty Start Date End Date Annie Justin MD [address] [facility] [place] [address] PCP - General Family Medicine 02/09/12 Chiara Pedersen APRN.DIRECTOR DIVERSITY [address] [facility] [place] [address] Regulatory Affairs Spec Family Medicine 09/11/24 Lenny Mena MEDICAL HISTORIAN.DIRECTOR DIVERSITY [address] [facility] [place] [address] Regulatory Affairs Spec Family Medicine 09/20/24 Emergency Department Director Relationship Specialty Start Date End Date Annie Justin MD [address] [facility] [place] [address] PCP - General Family Medicine 02/09/12 Chiara Pedersen MEDICAL HISTORIAN.DIRECTOR DIVERSITY [address] [facility] [place] [address] Regulatory Affairs Spec Family Medicine 09/11/24 Lenny Mena MEDICAL HISTORIAN.DIRECTOR DIVERSITY [address] [facility] [place] [address] Regulatory Affairs Spec Family Medicine 09/20/24 Emergency Department Director Relationship Specialty Start Date End Date Annie Justin MD [address] [facility] [place] [address] PCP - General Family Medicine 02/09/12 Lenny Mena MEDICAL HISTORIAN.DIRECTOR DIVERSITY [address] [place] [address] Regulatory Affairs Spec Family Medicine 09/20/24 Emergency Department Director Relationship Specialty Start Date End Date Annie Justin MD [address] [place] [address] PCP - General Family Medicine 02/09/12 Lenny Mena MEDICAL HISTORIAN.DIRECTOR DIVERSITY [address] [place] [address] Regulatory Affairs Spec Family Medicine 09/20/24 Emergency Department Director Relationship Specialty Start Date End Date Annie Justin MD [address] [place] [address] PCP - General Family Medicine 02/09/12 Lenny Mena, MEDICAL HISTORIAN.DIRECTOR DIVERSITY [address] [place] [address] Regulatory Affairs Spec Family Medicine 09/20/24 Emergency Department Director Relationship Specialty Start Date End Date Annie Justin MD [address] [place] [address] PCP - General Family Medicine 02/09/12 Lenny Mena, MEDICAL HISTORIAN.DIRECTOR DIVERSITY [address] [place] [address] Regulatory Affairs Spec Family Medicine 09/20/24 Emergency Department Director Relationship Specialty Start Date End Date Annie Justin MD [address] [place] [address] PCP - General Family Medicine 02/09/12 Lenny Mena MEDICAL HISTORIAN.DIRECTOR DIVERSITY [address] [place] [address] Regulatory Affairs Spec Family Medicine 09/20/24 Emergency Department Director Relationship Specialty Start Date End Date Annie Justin MD [address] [place] [address] PCP - General Family Medicine 02/09/12 Lenny Mena MEDICAL HISTORIAN.DIRECTOR DIVERSITY [address] [place] [address] Regulatory Affairs Spec Family Medicine 09/20/24 Emergency Department Director Relationship Specialty Start Date End Date Annie Justin MD [address] [place] [address] PCP - General Family Medicine 02/09/12 Lenny Mena, MEDICAL HISTORIAN.DIRECTOR DIVERSITY [address] [place] [address] Regulatory Affairs Spec Family Medicine 09/20/24 Emergency Department Director Relationship Specialty Start Date End Date Annie Justin MD [address] [place] [address] PCP - General Family Medicine 02/09/12 Lenny Mena, MEDICAL HISTORIAN.DIRECTOR DIVERSITY [address] [place] [address] Regulatory Affairs Spec Family Medicine 09/20/24 Emergency Department Director Relationship Specialty Start Date End Date Annie Justin MD [address] [place] [address] PCP - General Family Medicine 02/09/12 Lenny Mena APRN.DIRECTOR [employer]ERSITY [address] [place] [address] Regulatory Affairs Spec Family Medicine 09/20/24 Goals (unrecognized section and content) Goals may be documented in a n alternate section INFORMATION SOURCE (unrecogn ized section and content) DATE CREATED AUTHOR 05/28/2022 [facility] DATE CREATED AUTHOR AUTHOR'S ORGANIZ ATION 07/23/2024 [facility] DATE CREATED AUTHOR AUTHOR'S ORGANIZ ATION 06/23/[address] [facility] FOR RECORDS PERTAINING TO PATIENTS WHO ARE OR HAVE BEEN ENROLLED IN A CHEMICAL DEPENDENCY/SUBSTANCEABUSE PROGRAM, SOME INFORMATION MAY BE OMITTED. This clinical summary was aggregated from multiple sources. Caution should be exercised in using it in the provision of clinical care. This summary normalizes information from multiple sources, and as a consequence, information in this document may materially change the coding, format and clinical context of patient data. In addition, data may be omitted in some cases. CLINICAL DECISIONS SHOULD BE BASED ON THE PRIMARY CLINICAL RECORDS. [facility]. provides no warranty or guarantee of the accuracy or completeness of information in this document.
[2025-07-09 18:30] LABS: Squamous Epithelial Cells - UA 0-5 SEEN /hpf (5-10)
[2025-07-09 18:42] VITALS: BP 123/83; PULSE 72; RESP 16; O2SAT 100
[2025-07-09 19:58] VITALS: BP 140/95; PULSE 60; RESP 16; TEMP 36.6; O2SAT 97
== END 2025-07-09 19:58 | disposition home or self-care (01) ==
PROVIDERS: Emergency Provider Surgery; PCP Family Medicine; Visit Provider Surgery
DX: R10.A1 Flank pain, right side (principal); G35.D Multiple sclerosis, unspecified; Z79.631 Long term (current) use of antimetabolite agent
CPT/HCPCS: 74176; 80053; 81001; 84703; 85025; 96361; 96374; 96375; 99283; A4216; J2405